=== PATIENT | female | born 1970 | race African-American/Black ===

== ENCOUNTER 2017-02-26 12:57 | Inpatient (IN) | payer OTHER ==
[2017-02-26] MEDS ORDERED: RAPID SEQUENCE INTUBATION KIT NR ONE ×2 (13:03→13:09)
[2017-02-26 13:04] VITALS: BMI 24.7
[2017-02-26] MEDS ORDERED: SODIUM CHLORIDE 0.9% 1000 ML INFUS.BAG IV STA (13:16)
[2017-02-26] MEDS ORDERED: ETOMIDATE 20 MG/10 ML AMPUL IVPUSH ONE (13:18)
[2017-02-26] MEDS ORDERED: NALOXONE HCL 0.4 MG/ML VIAL IVPUSH ONE (13:18)
[2017-02-26] MEDS ORDERED: ROCURONIUM BROMIDE 50 MG/5 ML VIAL IV ONE (13:18)
--- NOTE | 2017-02-26 13:25 | PDOC ---
History of Present Illness <Linn Wakefield Todd - Last Filed: 02/26/17 15:07> - History of Present Illness Initial Comments: 46 year old female presenting unresponsive, respiring on her own with [place]y coma scale of 3 who was found down suspected to but down for two days in her own urine and feces. She was hemodynamically stable with SAT 100% on non re- breather. We intubated her without difficulty and only after etomidate with a 7.0 tube. Patient was paralyzed prophylactically with Rocronium for her CT scan. A med list was found that should morphine sulfate. Prior to intubation 2 of Narcan was given without response. 02/26/17 16:07 <Annie Norton - Last Filed: 02/26/17 20:09> - General Stated Complaint: UNRESPONSIVE Time Seen by Provider: 02/26/17 13:16 Past History <Linn Wakefield - Last Filed: 02/26/17 15:07> - Past Medical History Other medical history: UNKNOWN - Suicide/Smoking/Psychosocial Hx Smoking History: Unknown if ever smoked Hx Alcohol Use: (UNKNOWN) Drug/Substance Use Hx: (UNKNOWN) <Annie Norton - Last Filed: 02/26/17 20:09> - Past Medical History Allergies/Adverse Reactions: Allergies Allergy/AdvReac Type Severity Reaction Status Date / Time No Allergy Information Allergy Verified 02/26/17 13:17 Available Home Medications: Ambulatory Orders Unobtainable [Unobtainable] 02/26/17 Review of Systems - Review of Systems Able to Perform ROS?: No <Annie Norton - Last Filed: 02/26/17 20:09> *Physical Exam - Vital Signs Last Vital Signs Temp Pulse Resp BP Pulse Ox 98.4 F 105 H 16 132/91 96 02/26/17 14:43 02/26/17 14:43 02/26/17 14:43 02/26/17 14:43 02/26/17 14:43 <Linn Wakefield - Last Filed: 02/26/17 15:07> - Vital Signs Last Vital Signs Temp Pulse Resp BP Pulse Ox 113 H 226 H 134/86 98 02/26/17 13:01 02/26/17 13:01 02/26/17 13:01 02/26/17 13:01 - Physical Exam Comments: Completely comatose but respiring on her own with eyes both fixed in an left upward direction. Disheveled with malodorous urine and feces surround the patient. 02/26/17 16:53 <CierraSeymouralek - Last Filed: 02/26/17 20:09> Procedures - Intubation Intubation Method: orotracheal Blade used: Mac Tube Size (Fr): 7.0 Medications: Etomidate, Rocuronium Tube position @ lip (cm): 22 Tube position confirmed by: Direct visualization, CO2 detector, Chest x-ray, Breath sounds Breath Sounds after Intubation: equal Intubation Complications: no complications Post Intubation Xray: Yes Progress/Xray Impression: A few x rays were shot after repositioning. Eventually well positioned. <Annie Norton - Last Filed: 02/26/17 20:09> ED Treatment Course - LABORATORY CBC & Chemistry Diagram: 02/26/17 13:25 02/26/17 13:25 - ADDITIONAL ORDERS Additional order review: Laboratory Results 02/26/17 02/26/17 02/26/17 13:48 13:48 13:40 PT with INR INR PTT (Actin FS) Puncture Site Left radial ABG pH 7.33 L ABG pCO2 at Pt Temp 48.0 H ABG pO2 at Pt Temp 445.0 H* ABG HCO3 24.3 ABG O2 Sat (Measured) 99.8 H* ABG O2 Content 17.9 ABG Base Excess -1.4 Roney Test Positive VBG pH POC VBG pCO2 POC VBG pO2 Mixed VBG HCO3 Carboxyhemoglobin 1.0 Methemoglobin 0.6 O2 Delivery Device Vent Oxygen Flow Rate 100 Vent Mode Ac Vent Rate 12 Mechanical Rate Yes PEEP 5.0 Pressure Support Vent 400 Sodium Potassium Chloride Carbon Dioxide Anion Gap BUN Creatinine Creat Clearance w eGFR Random Glucose Serum Osmolality Lactic Acid Calcium Total Bilirubin AST ALT Alkaline Phosphatase Ammonia Creatine Kinase Creatine Kinase Index CK-MB (CK-2) Troponin I Total Protein Albumin Urine Color Urine Appearance Urine pH Urine Protein Urine Glucose (UA) Urine Ketones Urine Blood Urine Nitrite Urine Bilirubin Urine Urobilinogen Opiates Screen Positive Methadone Screen Negative Barbiturate Screen Positive Phencyclidine Screen Negative Ur Amphetamines Screen Negative MDMA (Ecstasy) Screen Negative Benzodiazepines Screen Positive Cocaine Screen Negative U Marijuana (THC) Screen Negative Alcohol, Quantitative Acetone, Qual Blood Type Antibody Screen 02/26/17 02/26/17 02/26/17 13:40 13:40 13:40 PT with INR INR PTT (Actin FS) Puncture Site ABG pH ABG pCO2 at Pt Temp ABG pO2 at Pt Temp ABG HCO3 ABG O2 Sat (Measured) ABG O2 Content ABG Base Excess Roney Test VBG pH 7.35 POC VBG pCO2 48.7 POC VBG pO2 51.6 H Mixed VBG HCO3 26.4 H Carboxyhemoglobin Methemoglobin O2 Delivery Device Oxygen Flow Rate Vent Mode Vent Rate Mechanical Rate PEEP Pressure Support Vent Sodium Potassium Chloride Carbon Dioxide Anion Gap BUN Creatinine Creat Clearance w eGFR Random Glucose Serum Osmolality 366 H Lactic Acid Calcium Total Bilirubin AST ALT Alkaline Phosphatase Ammonia Creatine Kinase Creatine Kinase Index CK-MB (CK-2) Troponin I Total Protein Albumin Urine Color Urine Appearance Urine pH Urine Protein Urine Glucose (UA) Urine Ketones Urine Blood Urine Nitrite Urine Bilirubin Urine Urobilinogen Opiates Screen Methadone Screen Barbiturate Screen Phencyclidine Screen Ur Amphetamines Screen MDMA (Ecstasy) Screen Benzodiazepines Screen Cocaine Screen U Marijuana (THC) Screen Alcohol, Quantitative < 5.0 Acetone, Qual Trace H Blood Type Antibody Screen 02/26/17 02/26/17 02/26/17 13:40 13:38 13:25 PT with INR INR PTT (Actin FS) Puncture Site ABG pH ABG pCO2 at Pt Temp ABG pO2 at Pt Temp ABG HCO3 ABG O2 Sat (Measured) ABG O2 Content ABG Base Excess Roney Test VBG pH POC VBG pCO2 POC VBG pO2 Mixed VBG HCO3 Carboxyhemoglobin Methemoglobin O2 Delivery Device Oxygen Flow Rate Vent Mode Vent Rate Mechanical Rate PEEP Pressure Support Vent Sodium Potassium Chloride Carbon Dioxide Anion Gap BUN Creatinine Creat Clearance w eGFR Random Glucose Serum Osmolality Lactic Acid Calcium Total Bilirubin AST ALT Alkaline Phosphatase Ammonia 68.55 H Creatine Kinase Creatine Kinase Index CK-MB (CK-2) Troponin I Total Protein Albumin Urine Color Yellow Urine Appearance Clear Urine pH 5.0 Urine Protein Negative Urine Glucose (UA) Negative Urine Ketones Negative Urine Blood Negative Urine Nitrite Negative Urine Bilirubin Negative Urine Urobilinogen Negative Opiates Screen Methadone Screen Barbiturate Screen Phencyclidine Screen Ur Amphetamines Screen MDMA (Ecstasy) Screen Benzodiazepines Screen Cocaine Screen U Marijuana (THC) Screen Alcohol, Quantitative Acetone, Qual Blood Type O POSITIVE Antibody Screen Negative 02/26/17 02/26/17 02/26/17 13:25 13:25 13:25 PT with INR 16.30 H INR 1.47 H PTT (Actin FS) 28.5 Puncture Site ABG pH ABG pCO2 at Pt Temp ABG pO2 at Pt Temp ABG HCO3 ABG O2 Sat (Measured) ABG O2 Content ABG Base Excess Roney Test VBG pH POC VBG pCO2 POC VBG pO2 Mixed VBG HCO3 Carboxyhemoglobin Methemoglobin O2 Delivery Device Oxygen Flow Rate Vent Mode Vent Rate Mechanical Rate PEEP Pressure Support Vent Sodium 154 H Potassium 5.0 Chloride 121 H Carbon Dioxide 26 Anion Gap 7 L BUN 112 H* Creatinine 1.8 H Creat Clearance w eGFR 30.86 Random Glucose 159 H Serum Osmolality Lactic Acid 2.7 H* Calcium 7.6 L Total Bilirubin 0.4 AST 73 H ALT 44 Alkaline Phosphatase 74 Ammonia Creatine Kinase 956 H Creatine Kinase Index 0.1 CK-MB (CK-2) 1.409 Troponin I 0.02 Total Protein 6.5 Albumin 3.6 Urine Color Urine Appearance Urine pH Urine Protein Urine Glucose (UA) Urine Ketones Urine Blood Urine Nitrite Urine Bilirubin Urine Urobilinogen Opiates Screen Methadone Screen Barbiturate Screen Phencyclidine Screen Ur Amphetamines Screen MDMA (Ecstasy) Screen Benzodiazepines Screen Cocaine Screen U Marijuana (THC) Screen Alcohol, Quantitative Acetone, Qual Blood Type Antibody Screen 02/26/17 13:25 RBC 6.06 H MCV 74.1 L MCHC 30.1 L RDW 22.9 H MPV 10.0 Neutrophils % No Result Required. Lymphocytes % No Result Required. - Medications Given in the ED: ED Medications Discontinued Medications Generic Name Dose Route Start Last Admin Trade Name Derekq PRN Reason Stop Dose Admin Etomidate 20 mg 02/26/17 13:18 02/26/17 13:49 Amidate - IVPUSH 02/26/17 13:19 20 mg ONCE ONE Administration Naloxone HCl 2 mg 02/26/17 13:18 02/26/17 13:49 Narcan - IVPUSH 02/26/17 13:19 2 mg ONCE ONE Administration Rocuronium [place] 100 mg 02/26/17 13:18 02/26/17 13:49 Zemuron - IV 02/26/17 13:19 100 mg ONCE ONE Administration Sodium Chloride 1,837 ml 02/26/17 13:16 02/26/17 13:49 Normal Saline - IV 02/26/17 13:17 1,837 ml ONCE STA Administration <Linn Wakefield - Last Filed: 02/26/17 15:07> - LABORATORY CBC & Chemistry Diagram: 02/26/17 13:25 02/26/17 13:25 <Annie Norton - Last Filed: 02/26/17 20:09> Medical Decision Making - Medical Decision Making 02/26/17 15:[address] Chato Laurent (PCP) [phone]. [employer]: Dr. Valerie Issa [phone]. <Linn Wakefield - Last Filed: 02/26/17 15:07> - Critical Care Time Total Critical Care Time (minutes): 45 Critical Care Statement: The care of this patient involved high complexity decision making to prevent further life threatening deterioration of the patient 's condition and/or to evaluate & treat vital organ system(s) failure or risk of failure. - Medical Decision Making 46 year old unresponsive patient with concerns for airway protection was intubated with etomidate with a 7.0 ET tube 22.0 CM at the lip with post intubation CXR showing good placement after a few trials of repositioning. OG tube placed. Labs severely deranged with drug screen positive for multiple depressant medications. Placed an OG tube and started lactulose therapy for elevated ammonia level as metabolic encephalopathy is high on the differential of etiologies causing this clinical presentation. Also high is drug overdose leading to anoxic brain injury. 02/26/17 16:56 02/26/17 20:[address] Martinez, Dr. Vivar, and neurology then transferred to the ICU. 02/26/17 20:08 <Annie Norton - Last Filed: 02/26/17 20:09> *DC/Admit/Observation/Transfer <Linn Wakefield - Last Filed: 02/26/17 15:07> - Discharge Dispostion Admit: Yes <Annie Norton - Last Filed: 02/26/17 20:09> Diagnosis at time of Disposition: Polypharmacy, Unresponsive, Anoxic brain injury Overdose Qualifiers: Encounter type: initial encounter Injury intent: undetermined intent Qualified Code(s): T50.904A - Poisoning by unspecified drugs, medicaments and biological substances, undetermined, initial encounter Coma Qualifiers: Coma depth: Rossy coma 3-8 Coma timing: at arrival to emergency department Qualified Code(s): R40.2432 - [place] coma scale score 3-8, at arrival to emergency department - Discharge Dispostion Condition at time of disposition: Stable
[2017-02-26 13:44] LABS: MCH 22.3 pg (25.7-33.7); MCHC 30.1 g/dl (32.0-36.0); MEAN CELL VOLUME 74.1 fl (80-96); PLATELET COUNT 221 K/MM3 (134-434); RDW 22.9 % (11.6-15.6); WHITE BLOOD COUNT 18.2 K/mm3 (4.0-10.0)
[2017-02-26 13:50] LABS: VENOUS PH 7.35 (7.32-7.42)
[2017-02-26 13:51] LABS: VENOUS BLOOD GAS HCO3 26.4 meq/L (19-25)
[2017-02-26 13:51] LABS: ARTERIAL BLD GAS O2 SATURATION 99.8 % (90-98.9); ARTERIAL BLOOD GAS BASE EXCESS -1.4 meq/l (-2-2); ARTERIAL BLOOD GAS HCO3 24.3 meq/L (22-26); ARTERIAL BLOOD GAS pH 7.33 (7.35-7.45)
[2017-02-26 13:53] LABS: ALLENS TEST POSITIVE; ART PUNCT SITE LEFT RADIAL; LPM/O2% 100; MECH. VENT. YES; PT. ON O2? YES; TYPE OF O2 VENT; VENT RATE 12; VT/PRESS 400
[2017-02-26 13:56] LABS: INR 1.47 (0.82-1.09); PROTHROMBIN TIME (PATIENT) 16.3 SEC (9.98-11.88)
[2017-02-26 13:59] LABS: ACTIVATED PTT 28.5 SECONDS (26.9-34.4)
[2017-02-26 14:18] LABS: URINE APPEARANCE CLEAR; URINE BILIRUBIN NEGATIVE (NEGATIVE); URINE BLOOD NEGATIVE (NEGATIVE); URINE COLOR YELLOW; URINE GLUCOSE (UA) NEGATIVE (NEGATIVE); URINE KETONE NEGATIVE (NEGATIVE); URINE LEUK ESTERASE NEGATIVE (NEGATIVE); URINE NITRITE NEGATIVE (NEGATIVE); URINE PROTEIN NEGATIVE (NEGATIVE); URINE UROBILINOGEN NEGATIVE mg/dL (0.2-1.0)
[2017-02-26 14:23] LABS: URINE MARIJUANA THC NEGATIVE ng/ml (CUTOFF=50)
[2017-02-26 14:26] LABS: METHEMOGLOBIN 0.6 % (0.4-1.5)
[2017-02-26 14:26] LABS: ALBUMIN 3.6 g/dl (3.4-5.0); ANION GAP 7 (8-16); BILIRUBIN,TOTAL 0.4 mg/dL (0.2-1.0); CALCIUM 7.6 mg/dL (8.5-10.1); CO2 26 mmol/L (21-32); CREATININE 1.8 mg/dL (0.55-1.02); GLUCOSE,RANDOM 159 mg/dL (74-106); SGOT/AST 73 U/L (15-37); SGPT/ALT 44 U/L (12-78); TOT PROT 6.5 g/dl (6.4-8.2)
[2017-02-26 14:29] LABS: ALK PHOS 74 U/L (45-117); CPK 956 IU/L (26-192); TROPONIN I 0.02 ng/ml (0.00-0.05)
[2017-02-26 14:43] LABS: ACETONE SERUM TRACE (NEGATIVE)
[2017-02-26 14:44] LABS: OSMOLALITY,SERUM 366 mosm/kg (278-305)
--- NOTE | 2017-02-26 14:45 | PDOC ---
Attending Attestation - Resident Resident Name: Annie Norton - ED Attending Attestation I have performed the following: I have examined & evaluated the patient, The case was reviewed & discussed with the resident, I agree w/resident's findings & plan, Exceptions are as noted - HPI HPI: 02/26/17 14:40 UNRESPONSIIVE, PROBABLY FOR 2 DAYS - Physicial Exam PE: 02/26/17 14:40 UNRESPONSIVE, COVERED IN URINE, EMISIS and STOOL, EYES DEVIATED TO THE LEFT- - Medical Decision Making 02/26/17 14:41 NO RESPONSE TO NARCAN 2 MG IV I agree with Annie Norton's Assessment and Plan <Les Deng - Last Filed: 02/26/17 14:40> - Medical Decision Making 02/26/17 16:[address] Darby. [phone] <Linn Wakefield - Last Filed: 02/26/17 16:34> Discharge Disposition - Discharge Dispostion Admit: Yes <Les Deng - Last Filed: 02/26/17 14:40> <Linn Wakefield - Last Filed: 02/26/17 16:34> - Diagnosis Polypharmacy, Unresponsive, Anoxic brain injury Overdose Qualifiers: Encounter type: initial encounter Injury intent: undetermined intent Qualified Code(s): T50.904A - Poisoning by unspecified drugs, medicaments and biological substances, undetermined, initial encounter Coma Qualifiers: Coma depth: Rossy coma 3-8 Coma timing: at arrival to emergency department Qualified Code(s): R40.2432 - Rossy coma scale score 3-8, at arrival to emergency department
[2017-02-26 14:59] LABS: PLATELET ESTIMATE ADEQUATE (NORMAL)
[2017-02-26 15:03] LABS: ANISOCYTOSIS 3+; HYPOCHROMIA 1+; MICROCYTOSIS 1+; OVALOCYTE 1+; TARGET CELLS 1+; TOTAL CELLS COUNTED 100
[2017-02-26] MEDS ORDERED: LACTULOSE 20 GM/30 ML UDC (FOR ORAL USE ONLY) PO ONE (16:49)
--- NOTE | 2017-02-26 16:51 | HP ---
Admitting History and Physical - Primary Care Physician PCP: Iliana Vivar - Admission History of Present Illness: 46 year old female presenting unresponsive, respiring on her own with [place] coma scale of 3 who was found down suspected to bt down for two days in her own urine and feces. history taken from er records - Past Medical History Rheumatology: Yes: Lupus - Smoking History Smoking history: Unknown if ever smoked - Alcohol/Substance Use Hx Alcohol Use: (UNKNOWN) Home Medications - Allergies Allergies/Adverse Reactions: Allergies Allergy/AdvReac Type Severity Reaction Status Date / Time No Allergy Information Allergy Verified 02/26/17 13:17 Available - Home Medications Home Medications: Ambulatory Orders Unobtainable [Unobtainable] 02/26/17 Physical Examination Vital Signs: Vital Signs Temperature 98.0 F 02/26/17 16:17 Pulse Rate 93 H 02/26/17 16:17 Respiratory Rate 16 02/26/17 16:17 Blood Pressure 116/85 02/26/17 16:17 O2 Sat by Pulse Oximetry (%) 100 02/26/17 16:17 Constitutional: Yes: Calm HENT: Yes: Atraumatic Neck: Yes: Supple Cardiovascular: Yes: Regular Rate and Rhythm Respiratory: Yes: Rhonchi Gastrointestinal: Yes: Normal Bowel Sounds Extremities: Yes: WNL Edema: No Integumentary: Yes: Skin Tear (on left side of chest hip, also left malleolus r side of chest...seems like ulcer) Neurological: Yes: Other (sedated) Problem List - Problems (1) TRENT (acute kidney injury) Assessment/Plan: will do iv hydration Code(s): N17.9 - ACUTE KIDNEY FAILURE, UNSPECIFIED (2) Anoxic brain injury Assessment/Plan: neuro checks Code(s): G93.1 - ANOXIC BRAIN DAMAGE, NOT ELSEWHERE CLASSIFIED (3) Coma Code(s): R40.20 - UNSPECIFIED COMA Qualifiers: Coma depth: [place] coma 3-8 Coma timing: at arrival to emergency department Qualified Code(s): R40.2432 - [place] coma scale score 3-8, at arrival to emergency department (4) Overdose Assessment/Plan: check levels Code(s): T50.901A - POISONING BY UNSP DRUG/MEDS/BIOL SUBST, ACCIDENTAL, INIT Qualifiers: Encounter type: initial encounter Injury intent: undetermined intent Qualified Code(s): T50.904A - Poisoning by unspecified drugs, medicaments and biological substances, undetermined, initial encounter (5) Polypharmacy Code(s): Z79.899 - OTHER SENIOR LIVING (CURRENT) DRUG THERAPY (6) Respiratory failure Assessment/Plan: intubated Code(s): J96.90 - RESPIRATORY FAILURE, UNSP, UNSP W HYPOXIA OR HYPERCAPNIA (7) Rhabdomyolysis Assessment/Plan: ivf will check cpk Code(s): M62.82 - RHABDOMYOLYSIS (8) Unresponsive Code(s): R41.89 - OTH SYMPTOMS AND SIGNS W COGNITIVE FUNCTIONS AND AWARENESS Assessment/Plan Laboratory Tests 02/26/17 02/26/17 02/26/17 13:02 13:25 13:25 WBC 18.2 H RBC 6.06 H Hgb 13.5 Hct 44.9 MCV 74.1 L MCH 22.3 L MCHC 30.1 L RDW 22.9 H Plt Count 221 MPV 10.0 Total Counted 100 Neutrophils % No Result Required. Neutrophils % (Manual) 85 H Band Neuts % (Manual) 2 Lymphocytes % No Result Required. Lymphocytes % (Manual) 8 Monocytes % Monocytes % (Manual) 5 Eosinophils % Eosinophils % (Manual) 0 Basophils % Hypochromia 1+ Platelet Estimate Adequate Anisocytosis 3+ Microcytosis 1+ Target Cells 1+ Ovalocytes 1+ PT with INR 16.30 H INR 1.47 H PTT (Actin FS) 28.5 Puncture Site ABG pH ABG pCO2 at Pt Temp ABG pO2 at Pt Temp ABG HCO3 ABG O2 Sat (Measured) ABG O2 Content ABG Base Excess Roney Test VBG pH POC VBG pCO2 POC VBG pO2 Mixed VBG HCO3 Carboxyhemoglobin Methemoglobin O2 Delivery Device Oxygen Flow Rate Vent Mode Vent Rate Mechanical Rate PEEP Pressure Support Vent Sodium Potassium Chloride Carbon Dioxide Anion Gap BUN Creatinine Creat Clearance w eGFR POC Glucometer [phone] Random Glucose Serum Osmolality Lactic Acid Calcium Total Bilirubin AST ALT Alkaline Phosphatase Ammonia Creatine Kinase Creatine Kinase Index CK-MB (CK-2) Troponin I Total Protein Albumin Urine Color Urine Appearance Urine pH Urine Protein Urine Glucose (UA) Urine Ketones Urine Blood Urine Nitrite Urine Bilirubin Urine Urobilinogen Opiates Screen Methadone Screen Barbiturate Screen Phencyclidine Screen Ur Amphetamines Screen MDMA (Ecstasy) Screen Benzodiazepines Screen Cocaine Screen U Marijuana (THC) Screen Alcohol, Quantitative Acetone, Qual Blood Type Antibody Screen 02/26/17 02/26/17 02/26/17 13:25 13:25 13:25 WBC RBC Hgb Hct MCV MCH MCHC RDW Plt Count MPV Total Counted Neutrophils % Neutrophils % (Manual) Band Neuts % (Manual) Lymphocytes % Lymphocytes % (Manual) Monocytes % Monocytes % (Manual) Eosinophils % Eosinophils % (Manual) Basophils % Hypochromia Platelet Estimate Anisocytosis Microcytosis Target Cells Ovalocytes PT with INR INR PTT (Actin FS) Puncture Site ABG pH ABG pCO2 at Pt Temp ABG pO2 at Pt Temp ABG HCO3 ABG O2 Sat (Measured) ABG O2 Content ABG Base Excess Roney Test VBG pH POC VBG pCO2 POC VBG pO2 Mixed VBG HCO3 Carboxyhemoglobin Methemoglobin O2 Delivery Device Oxygen Flow Rate Vent Mode Vent Rate Mechanical Rate PEEP Pressure Support Vent Sodium 154 H Potassium 5.0 Chloride 121 H Carbon Dioxide 26 Anion Gap 7 L BUN 112 H* Creatinine 1.8 H Creat Clearance w eGFR 30.86 POC Glucometer Random Glucose 159 H Serum Osmolality Lactic Acid 2.7 H* Calcium 7.6 L Total Bilirubin 0.4 AST 73 H ALT 44 Alkaline Phosphatase 74 Ammonia Creatine Kinase 956 H Creatine Kinase Index 0.1 CK-MB (CK-2) 1.409 Troponin I 0.02 Total Protein 6.5 Albumin 3.6 Urine Color Urine Appearance Urine pH Urine Protein Urine Glucose (UA) Urine Ketones Urine Blood Urine Nitrite Urine Bilirubin Urine Urobilinogen Opiates Screen Methadone Screen Barbiturate Screen Phencyclidine Screen Ur Amphetamines Screen MDMA (Ecstasy) Screen Benzodiazepines Screen Cocaine Screen U Marijuana (THC) Screen Alcohol, Quantitative Acetone, Qual Blood Type O POSITIVE Antibody Screen Negative 02/26/17 02/26/17 02/26/17 13:38 13:40 13:40 WBC RBC Hgb Hct MCV MCH MCHC RDW Plt Count MPV Total Counted Neutrophils % Neutrophils % (Manual) Band Neuts % (Manual) Lymphocytes % Lymphocytes % (Manual) Monocytes % Monocytes % (Manual) Eosinophils % Eosinophils % (Manual) Basophils % Hypochromia Platelet Estimate Anisocytosis Microcytosis Target Cells Ovalocytes PT with INR INR PTT (Actin FS) Puncture Site ABG pH ABG pCO2 at Pt Temp ABG pO2 at Pt Temp ABG HCO3 ABG O2 Sat (Measured) ABG O2 Content ABG Base Excess Roney Test VBG pH 7.35 POC VBG pCO2 48.7 POC VBG pO2 51.6 H Mixed VBG HCO3 26.4 H Carboxyhemoglobin Methemoglobin O2 Delivery Device Oxygen Flow Rate Vent Mode Vent Rate Mechanical Rate PEEP Pressure Support Vent Sodium Potassium Chloride Carbon Dioxide Anion Gap BUN Creatinine Creat Clearance w eGFR POC Glucometer Random Glucose Serum Osmolality Lactic Acid Calcium Total Bilirubin AST ALT Alkaline Phosphatase Ammonia 68.55 H Creatine Kinase Creatine Kinase Index CK-MB (CK-2) Troponin I Total Protein Albumin Urine Color Yellow Urine Appearance Clear Urine pH 5.0 Urine Protein Negative Urine Glucose (UA) Negative Urine Ketones Negative Urine Blood Negative Urine Nitrite Negative Urine Bilirubin Negative Urine Urobilinogen Negative Opiates Screen Methadone Screen Barbiturate Screen Phencyclidine Screen Ur Amphetamines Screen MDMA (Ecstasy) Screen Benzodiazepines Screen Cocaine Screen U Marijuana (THC) Screen Alcohol, Quantitative Acetone, Qual Blood Type Antibody Screen 02/26/17 02/26/17 02/26/17 13:40 13:40 13:40 WBC RBC Hgb Hct MCV MCH MCHC RDW Plt Count MPV Total Counted Neutrophils % Neutrophils % (Manual) Band Neuts % (Manual) Lymphocytes % Lymphocytes % (Manual) Monocytes % Monocytes % (Manual) Eosinophils % Eosinophils % (Manual) Basophils % Hypochromia Platelet Estimate Anisocytosis Microcytosis Target Cells Ovalocytes PT with INR INR PTT (Actin FS) Puncture Site ABG pH ABG pCO2 at Pt Temp ABG pO2 at Pt Temp ABG HCO3 ABG O2 Sat (Measured) ABG O2 Content ABG Base Excess Roney Test VBG pH POC VBG pCO2 POC VBG pO2 Mixed VBG HCO3 Carboxyhemoglobin Methemoglobin O2 Delivery Device Oxygen Flow Rate Vent Mode Vent Rate Mechanical Rate PEEP Pressure Support Vent Sodium Potassium Chloride Carbon Dioxide Anion Gap BUN Creatinine Creat Clearance w eGFR POC Glucometer Random Glucose Serum Osmolality 366 H Lactic Acid Calcium Total Bilirubin AST ALT Alkaline Phosphatase Ammonia Creatine Kinase Creatine Kinase Index CK-MB (CK-2) Troponin I Total Protein Albumin Urine Color Urine Appearance Urine pH Urine Protein Urine Glucose (UA) Urine Ketones Urine Blood Urine Nitrite Urine Bilirubin Urine Urobilinogen Opiates Screen Positive Methadone Screen Negative Barbiturate Screen Positive Phencyclidine Screen Negative Ur Amphetamines Screen Negative MDMA (Ecstasy) Screen Negative Benzodiazepines Screen Positive Cocaine Screen Negative U Marijuana (THC) Screen Negative Alcohol, Quantitative < 5.0 Acetone, Qual Trace H Blood Type Antibody Screen 02/26/17 02/26/17 02/26/17 13:48 13:48 15:16 WBC RBC Hgb Hct MCV MCH MCHC RDW Plt Count MPV Total Counted Neutrophils % Neutrophils % (Manual) Band Neuts % (Manual) Lymphocytes % Lymphocytes % (Manual) Monocytes % Monocytes % (Manual) Eosinophils % Eosinophils % (Manual) Basophils % Hypochromia Platelet Estimate Anisocytosis Microcytosis Target Cells Ovalocytes PT with INR INR PTT (Actin FS) Puncture Site Left radial ABG pH 7.33 L ABG pCO2 at Pt Temp 48.0 H ABG pO2 at Pt Temp 445.0 H* ABG HCO3 24.3 ABG O2 Sat (Measured) 99.8 H* ABG O2 Content 17.9 ABG Base Excess -1.4 Roney Test Positive VBG pH POC VBG pCO2 POC VBG pO2 Mixed VBG HCO3 Carboxyhemoglobin 1.0 Methemoglobin 0.6 O2 Delivery Device Vent Oxygen Flow Rate 100 Vent Mode Ac Vent Rate 12 Mechanical Rate Yes PEEP 5.0 Pressure Support Vent 400 Sodium Potassium Chloride Carbon Dioxide Anion Gap BUN Creatinine Creat Clearance w eGFR POC Glucometer Random Glucose Serum Osmolality Lactic Acid 1.7 Calcium Total Bilirubin AST ALT Alkaline Phosphatase Ammonia Creatine Kinase Creatine Kinase Index CK-MB (CK-2) Troponin I Total Protein Albumin Urine Color Urine Appearance Urine pH Urine Protein Urine Glucose (UA) Urine Ketones Urine Blood Urine Nitrite Urine Bilirubin Urine Urobilinogen Opiates Screen Methadone Screen Barbiturate Screen Phencyclidine Screen Ur Amphetamines Screen MDMA (Ecstasy) Screen Benzodiazepines Screen Cocaine Screen U Marijuana (THC) Screen Alcohol, Quantitative Acetone, Qual Blood Type Antibody Screen 02/27/17 02/27/17 02/27/17 05:00 05:00 07:10 WBC 18.0 H RBC 5.17 Hgb 11.9 D Hct 37.9 D MCV 73.3 L MCH 23.0 L MCHC 31.3 L RDW 22.9 H Plt Count 183 MPV 10.0 Total Counted Neutrophils % 82.8 Neutrophils % (Manual) Band Neuts % (Manual) Lymphocytes % 4.5 L Lymphocytes % (Manual) Monocytes % 11.9 H Monocytes % (Manual) Eosinophils % 0.6 Eosinophils % (Manual) Basophils % 0.2 Hypochromia Platelet Estimate Anisocytosis Microcytosis Target Cells Ovalocytes PT with INR INR PTT (Actin FS) Puncture Site Right radial ABG pH 7.40 ABG pCO2 at Pt Temp 36.4 D ABG pO2 at Pt Temp 208.0 H* ABG HCO3 22.1 ABG O2 Sat (Measured) 99.6 H* ABG O2 Content 16.9 ABG Base Excess -1.8 Roney Test Positive VBG pH POC VBG pCO2 POC VBG pO2 Mixed VBG HCO3 Carboxyhemoglobin Methemoglobin O2 Delivery Device Vent Oxygen Flow Rate 50 Vent Mode A/c Vent Rate 16 Mechanical Rate Yes PEEP 5.0 Pressure Support Vent 400 Sodium 155 H Potassium 4.9 Chloride 124 H Carbon Dioxide 24 Anion Gap 7 L BUN 70 H D Creatinine 1.4 H D Creat Clearance w eGFR 40.66 POC Glucometer Random Glucose 177 H Serum Osmolality Lactic Acid Calcium 8.1 L Total Bilirubin 0.5 D AST 117 H D ALT 56 D Alkaline Phosphatase 76 Ammonia Creatine Kinase Creatine Kinase Index CK-MB (CK-2) Troponin I Total Protein 6.4 Albumin 3.3 L Urine Color Urine Appearance Urine pH Urine Protein Urine Glucose (UA) Urine Ketones Urine Blood Urine Nitrite Urine Bilirubin Urine Urobilinogen Opiates Screen Methadone Screen Barbiturate Screen Phencyclidine Screen Ur Amphetamines Screen MDMA (Ecstasy) Screen Benzodiazepines Screen Cocaine Screen U Marijuana (THC) Screen Alcohol, Quantitative Acetone, Qual Blood Type Antibody Screen Active Medications Generic Name Dose Route Start Last Admin Trade Name Freq PRN Reason Stop Dose Admin Heparin Sodium (Porcine) 5,000 unit 02/26/17 22:00 02/27/17 15:04 Heparin - SQ 5,000 unit TID MOI Administration Vancomycin HCl 1,250 mg/ 250 mls @ 166.667 mls/hr 02/26/17 18:00 02/27/17 17:37 Dextrose IVPB 166.667 mls/hr Q24H MOI Administration Protocol Famotidine/Sodium Chloride 50 mls @ 100 mls/hr 02/27/17 06:00 02/27/17 06:09 Pepcid 20 Mg Premixed Ivpb - IVPB 100 mls/hr DAILY@0600 MOI Administration Piperacillin Sod/Tazobactam Sod 50 mls @ 100 mls/hr 02/27/17 09:03 02/27/17 17: 38 Zosyn 3.375gm Ivpb (Pre-Docked) IVPB 100 mls/hr Q8H-IV MOI Administration Protocol Dextrose/Sodium Chloride 500 mls @ 100 mls/hr 02/27/17 10:45 02/27/17 16:51 D5-1/3ns - IV 100 mls/hr ASDIR MOI Administration
[2017-02-26] MEDS ORDERED: LACTULOSE 20 GM/30 ML UDC (FOR ORAL USE ONLY) ONE (16:53)
[2017-02-26] MEDS ORDERED: SODIUM CHLORIDE 1,000 ML IV SCH (17:00)
[2017-02-26] MEDS ORDERED: CEFTRIAXONE 100 ML ONE (17:12)
[2017-02-26] MEDS ORDERED: CEFTRIAXONE 1 GM in DEXTROSE 5%-WATER - 50 ML IVPB SCH (17:15)
--- NOTE | 2017-02-26 17:35 | CON.ID ---
Consult Consult Specialty:: infectious diseases Reason for Consultation:: sepsis,pna - History of Present Illness History of Present Illness: patient currently intubated, history obtained from the charts 46 year old female presented to ER completely unresponsive, [place] coma scale of 3, who was "found down" possibly for several days and last known well two days ago. was Found in her own urine and feces without explanation of why. Concern for airway protection and ER intubated and put on mechanical ventilation UTox positive for benzo, barbiturates, and opiods. ALso with WBC of 18. patient not responsive,was worked up with ct scan being normal also found to have abn labs including cpk and patient being given fluids and being managed on vent - History Source History Provided By: Medical Record Limitations to Obtaining History: Clinical Condition - Alcohol/Substance Use Hx Alcohol Use: (UNKNOWN) - Smoking History Smoking history: Unknown if ever smoked Home Medications - Allergies Allergies/Adverse Reactions: Allergies Allergy/AdvReac Type Severity Reaction Status Date / Time No Allergy Information Allergy Verified 02/26/17 13:17 Available - Home Medications Home Medications: Ambulatory Orders Unobtainable [Unobtainable] 02/26/17 Review of Systems Unable to obtain ROS, reason: unable to obtain Physical Exam Vital Signs: Vital Signs Temperature 98.0 F 02/26/17 16:17 Pulse Rate 93 H 02/26/17 16:17 Respiratory Rate 16 02/26/17 16:17 Blood Pressure 116/85 02/26/17 16:17 O2 Sat by Pulse Oximetry (%) 100 02/26/17 16:17 Constitutional: Yes: Other Eyes: Yes: Conjunctiva Clear Neck: Yes: Supple, Trachea Midline Cardiovascular: Yes: Regular Rate and Rhythm Respiratory: Yes: Intubated, Mechanically Ventilated, Rhonchi Gastrointestinal: Yes: Soft, Hypoactive Bowel Sounds Musculoskeletal: Yes: Other Extremities: Yes: Other Integumentary: Yes: Other ( unstageable ulcers l with necrotic center and surrounding skin breakdown) Wound/Incision: Yes: Other Neurological: Yes: Other Psychiatric: Yes: Other Imaging - Results Chest X-ray: Report Reviewed, Image Reviewed Cat Scan: Report Reviewed, Image Reviewed Assessment/Plan Problem List - Problems (1) Overdose Code(s): T50.901A - POISONING BY UNSP DRUG/MEDS/BIOL SUBST, ACCIDENTAL, INIT Qualifiers: Encounter type: initial encounter Injury intent: undetermined intent Qualified Code(s): T50.904A - Poisoning by unspecified drugs, medicaments and biological substances, undetermined, initial encounter (2) Polypharmacy Code(s): Z79.899 - OTHER SKILLED NURSING (CURRENT) DRUG THERAPY (3) Unresponsive Code(s): R41.89 - OTH SYMPTOMS AND SIGNS W COGNITIVE FUNCTIONS AND AWARENESS (4) TRENT (acute kidney injury) Code(s): N17.9 - ACUTE KIDNEY FAILURE, UNSPECIFIED (5) Rhabdomyolysis Code(s): M62.82 - RHABDOMYOLYSIS (6) Respiratory failure Code(s): J96.90 - RESPIRATORY FAILURE, UNSP, UNSP W HYPOXIA OR HYPERCAPNIA asp pna leukocytosis although the patient is not showing any finding on the xray the chances of her aspirating when she was unconscious is pretty high patient comes in septic also andrea has wounds on the leg plan abx icu close monitoring for fever monitor labx rest as per primary care cc time 45 min
--- NOTE | 2017-02-26 18:37 | CONSULT ---
Consult - text type - Consultation Consultation Note: Neurology History of Present Illness 46 year old female presented to ER completely unresponsive, [place] coma scale of 3, who was "found down" possibly for several days and last known well two days ago. Found in her own urine and feces without explanation of why. Concern for airway protection and ER intubated and put on mechanical ventilation in the ER where I saw her. CT head completed and did not show acute changes. UTox positive for benzo, barbiturates, and opiods. ALso with WBC of 18. Patient not responsive during exam and pupil sluggish but responsive. Concern for drug overdose but will need further evaluation and managment. To be transferred to ICU for close monitoring. Past History - Past Medical History Other medical history: UNKNOWN - Suicide/Smoking/Psychosocial Hx Smoking History: Unknown if ever smoked Hx Alcohol Use: (UNKNOWN) Drug/Substance Use Hx: (UNKNOWN) - Past Medical History Allergies/Adverse Reactions: Allergies Allergy/AdvReac Type Severity Reaction Status Date / Time No Allergy Information Allergy Verified 02/26/17 13:17 Available Home Medications: Ambulatory Orders Unobtainable [Unobtainable] Review of Systems - Review of Systems Able to Perform ROS?: No *Physical Exam Vital Signs Period Temp Pulse Resp BP Sys/Pena Pulse Ox Last 24 Hr 98.0 F-98.4 F 93-113 16-226 116-134/80-91 96-100 Comatose, not following commands, intubated, on mechanical ventilation Disheveled with malodorous scent Minimal response to nailbed pressure Not tracking Pupil responsive but sluggish Lungs sounds mechanical RRR Abdomen soft CBCD WBC 18.2 K/mm3 (4.0-10.0) H 02/26/17 13:25 RBC 6.06 M/mm3 (3.60-5.2) H 02/26/17 13:25 Hgb 13.5 GM/dL (10.7-15.3) 02/26/17 13:25 Hct 44.9 % (32.4-45.2) 02/26/17 13:25 MCV 74.1 fl (80-96) L 02/26/17 13:25 MCHC 30.1 g/dl (32.0-36.0) L 02/26/17 13:25 RDW 22.9 % (11.6-15.6) H 02/26/17 13:25 Plt Count 221 K/MM3 (134-434) 02/26/17 13:25 MPV 10.0 fl (7.5-11.1) 02/26/17 13:25 CMP Sodium 154 mmol/L (136-145) H 02/26/17 13:25 Potassium 5.0 mmol/L (3.5-5.1) 02/26/17 13:25 Chloride 121 mmol/L (98-107) H 02/26/17 13:25 Carbon Dioxide 26 mmol/L (21-32) 02/26/17 13:25 Anion Gap 7 (8-16) L 02/26/17 13:25 BUN 112 mg/dL (7-18) H* 02/26/17 13:25 Creatinine 1.8 mg/dL (0.55-1.02) H 02/26/17 13:25 Creat Clearance w eGFR 30.86 (>60) 02/26/17 13:25 Calcium 7.6 mg/dL (8.5-10.1) L 02/26/17 13:25 Total Bilirubin 0.4 mg/dL (0.2-1.0) 02/26/17 13:25 AST 73 U/L (15-37) H 02/26/17 13:25 ALT 44 U/L (12-78) 02/26/17 13:25 Alkaline Phosphatase 74 U/L (45-117) 02/26/17 13:25 Total Protein 6.5 g/dl (6.4-8.2) 02/26/17 13:25 Albumin 3.6 g/dl (3.4-5.0) 02/26/17 13:25 CT head reviewed Plan: 46 year old female presented to ER completely unresponsive, [place] coma scale of 3, who was "found down" possibly for several days and last known well two days ago. Found in her own urine and feces without explanation of why. Concern for airway protection and ER intubated and put on mechanical ventilation in the ER where I saw her. CT head completed and did not show acute changes. UTox positive for benzo, barbiturates, and opiods. Concern for drug overdose ALso with WBC of 18. ID consulted and following MRI brain when able Hydration as needed, check CPK for rhabdo Continue mechanical ventilation, wean as able No evidence of seizures Will need further history from family Close monitoring in ICU Total Critical Care Time (minutes): 45
--- NOTE | 2017-02-26 19:02 | HP ---
CHIEF COMPLAINT: Unresponsive PCP: Dr. Chato Laurent (PCP) [phone]. Senior Loan Officer: Dr. Valerie Issa [phone]. HISTORY OF PRESENT ILLNESS: History was taken from ER records. The pt is a 46 year old female with PMH of lupus who was found unresponsive. It is unknown how long she was down, possibly for several days. She was found by her neighbours covered with urine, faeces and vomit. In ED she was found to be tachycardic, elevated WBC to 18, GCS 3, resp acidosis, elevated BUN/Cr, elevated ammonia level and LA. She was given Narcan without response, lactulose, Ceftriaxone, NS. She had CT head, that didn' t reveal any acute changes, CXR, intubated and sent to ICU for monitoring. Recent Travel: N/A PAST MEDICAL HISTORY: Lupus according to brother PAST SURGICAL HISTORY: N/A Social History: N/A Family History: N/A Allergies No Allergy Information Available Allergy (Verified 02/26/17 13:17) HOME MEDICATIONS: Home Medications: confirmed with [facility]: [address] [place] morphine ER 30 mg BID morphine short acting 15 mg Q4h Vit D Prednisone 30 mg qd Valium 5 mg TID Phenobarbital 60 mg TID REVIEW OF SYSTEMS N/A PHYSICAL EXAMINATION Vital Signs - 24 hr 02/26/17 02/26/17 02/26/17 15:30 15:55 16:17 Temperature 98.4 F 98.0 F Pulse Rate [ 100 H 93 H Left Apical] Respiratory 16 16 16 Rate Blood Pressure 122/82 116/85 [Right Arm] O2 Sat by Pulse 100 100 Oximetry (%) GENERAL: Intubated, nonresponsive, intubated HEAD: Normal with no signs of trauma. EYES: Pupils equal, round and reactive to light, sluggish,conjunctiva clear. No lid lag, corneal reflex present. EARS, NOSE, THROAT: Ears normal, nares patent, oropharynx clear without exudates. Moist mucous membranes. NECK: supple without lymphadenopathy, JVD, LUNGS: Breath sounds equal, clear to auscultation bilaterally. No wheezes, and no crackles. HEART: Regular rate and rhythm, normal S1 and S2 without murmur, rub or gallop. ABDOMEN: Soft, nontender, not distended, normoactive bowel sounds, no guarding, no rebound, no masses. UPPER EXTREMITIES: 2+ pulses. No cyanosis. No clubbing. No peripheral edema. LOWER EXTREMITIES: 2+ pulses, warm. No peripheral edema. NEUROLOGICAL: Nonresponsive, not following commands, weakness in all 4 extremities, sensation not able to assess, corneal reflex present, no facial asymmetry. SKIN: Warm, dry, several ulcers with black tissue, well demarcated, no drainage , on lower extremities and left buttock and left lower back. Small 1 cm round ulcers are also present around ankles. Laboratory Results - last 24 hr 02/26/17 15:16 Lactic Acid 1.7 ASSESSMENT/PLAN: The pt is a 46 year old female with PMH of lupus who was brought to the hospital by EMS after she was found at home unresponsive on the floor. Polysubstance abuse: Narcan given in ED with no response CT head done in ED-no acute pathology UTox positive for benzo, barbiturates, and opiods Neurology consulted, will follow up recommendations will consided MRI brain when pt more stable Rhabdomyolisis: CPK elevated continue LR at rate 100 ml/hr Acute respiratory failure: the pt was intubated in ER cont. mech ventilation off sedation SIRS: blood cultures, urine cultures ordered ID consulted Vancomycin and Zosyn ordered added wound cultures no fever LA normalized will trend WBC TRENT: continue hydration avoid nephrotoxic substances Lupus: will contact the pt Senior Loan Officer on Prednisone 30 mg daily F/E/N LR/elev Na, Cl/NPO DVT PPX: SCd Heparin 5000 u SQ GI PPX: Famotidine Disposition: ICU monitoring. Family (brother) notified. Problem List - Problem (1) TRENT (acute kidney injury) Code(s): N17.9 - ACUTE KIDNEY FAILURE, UNSPECIFIED (2) Anoxic brain injury Code(s): G93.1 - ANOXIC BRAIN DAMAGE, NOT ELSEWHERE CLASSIFIED (3) Overdose Code(s): T50.901A - POISONING BY UNSP DRUG/MEDS/BIOL SUBST, ACCIDENTAL, INIT Qualifiers: Encounter type: initial encounter Injury intent: undetermined intent Qualified Code(s): T50.904A - Poisoning by unspecified drugs, medicaments and biological substances, undetermined, initial encounter (4) Respiratory failure Code(s): J96.90 - RESPIRATORY FAILURE, UNSP, UNSP W HYPOXIA OR HYPERCAPNIA Qualifiers: Chronicity: acute (5) Rhabdomyolysis Code(s): M62.82 - RHABDOMYOLYSIS (6) Unresponsive Code(s): R41.89 - OTH SYMPTOMS AND SIGNS W COGNITIVE FUNCTIONS AND AWARENESS Visit type - Emergency Visit Emergency Visit: Yes ED Registration Date: 02/26/17 Care time: The patient presented to the Emergency Department on the above date and was hospitalized for further evaluation of their emergent condition. - New Patient This patient is new to me today: Yes Date on this admission: 03/01/17 - Critical Care Critical Care patient: Yes Total Critical Care Time (in minutes): 40 Critical Care Statement: The care of this patient involved high complexity decision making to prevent further life threatening deterioration of the patient 's condition and/or to evaluate & treat vital organ system(s) failure or risk of failure.
--- NOTE | 2017-02-26 20:09 | CONSULT ---
Consult Consult Specialty:: Pulm/ CCM Referred by:: Ghazala Reason for Consultation:: altered mental status - History of Present Illness Chief Complaint: found unresponsive History of Present Illness: 46 y/o woman with h/o lupus who was found unresponsive after unknown down time, suspected 2 days. Neighbors notified authorities when they had not seen her for few days and she was found down today covered in urine and feces. She was found hemodynamically stable with GCS estimated about 3. On EMS arrival she was breathing independently, satting 100% on NRB. She arrived in the ED where she was given narcan without response and was subsequently intubated. She underwent CT head which was negative. Labs notable for WBC 18, BUN/Creat 112/1.8, lactate 2.5-> 1.7, CK 956. Utox (+) for opiates, barbiturates and benzos. Collateral history from brother/pharmacy reveals that pt takes morphine, phenobarbitol, and valium in addition to prednisone 30 daily. Pt was seen by ID consult who recommended vanco/ zosyn as well as neuro consult who felt most likely drug overdose, recommended MRI when able. Pt was transferred to ICU for further work up and monitoring. Pt arrived to ICU hemodynamically stable, intubated and unresponsive, flacid though with (+) pupillary, corneal, cough reflexes. She was started on standing IVF for rhabdo and continued on vanco/ zosyn. Active Medications Heparin Sodium (Porcine) (Heparin -) 5,000 unit SQ TID MOI Sodium Chloride (Normal Saline -) 1,000 mls @ 100 mls/hr IV ASDIR [facility] Last Admin: 02/26/17 17:10 Dose: 100 mls/hr Vancomycin HCl 1,250 mg/ (Dextrose) 250 mls @ 166.667 mls/hr IVPB Q24H MOI PRN Reason: Protocol Piperacillin Sod/Tazobactam (Sod 3.375 gm/ Dextrose) 50 mls @ 100 mls/hr IVPB Q8H-IV MOI PRN Reason: Protocol Last Admin: 02/26/17 20:21 Dose: 100 mls/hr Famotidine/Sodium Chloride (Pepcid 20 Mg Premixed Ivpb -) 50 mls @ 100 mls/hr IVPB DAILY@0600 [facility] - History Source History Provided By: Medical Record Limitations to Obtaining History: Unresponsive - Past Medical History Rheumatology: Yes: Lupus - Alcohol/Substance Use Hx Alcohol Use: (UNKNOWN) History of Substance Use: reports: Prescription - Smoking History Smoking history: Unknown if ever smoked - Social History Usual Living Arrangement: Alone Home Medications - Allergies Allergies/Adverse Reactions: Allergies Allergy/AdvReac Type Severity Reaction Status Date / Time No Allergy Information Allergy Verified 02/26/17 13:17 Available - Home Medications Home Medications: Ambulatory Orders Unobtainable [Unobtainable] 02/26/17 Family Disease History - Family Disease History Family History: Unable to Obtain Review of Systems Unable to obtain ROS, reason: pt unresponsive Physical Exam Vital Signs: Vital Signs Temperature 98.0 F 02/26/17 16:17 Pulse Rate 93 H 02/26/17 16:17 Respiratory Rate 16 02/26/17 18:40 Blood Pressure 116/85 02/26/17 16:17 O2 Sat by Pulse Oximetry (%) 98 02/26/17 18:38 Eyes: Yes: PERRL HENT: Yes: Atraumatic Cardiovascular: Yes: Regular Rate and Rhythm, S1, S2. No: Gallop, Murmur, Rub Respiratory: Yes: CTA Bilaterally, Intubated, Mechanically Ventilated Gastrointestinal: Yes: Hypoactive Bowel Sounds Extremities: Yes: Cool Edema: No Peripheral Pulses WNL: Yes Integumentary: Yes: Other (various unstageable ulcers likely deep tissue injury with necrotic center and surrounding skin breakdown) Neurological: Yes: Unresponsive, Other ((+) pupillary, corneal, cough reflexes, flacid extremities.) Labs: CBCD WBC 18.2 K/mm3 (4.0-10.0) H 02/26/17 13:25 RBC 6.06 M/mm3 (3.60-5.2) H 02/26/17 13:25 Hgb 13.5 GM/dL (10.7-15.3) 02/26/17 13:25 Hct 44.9 % (32.4-45.2) 02/26/17 13:25 MCV 74.1 fl (80-96) L 02/26/17 13:25 MCHC 30.1 g/dl (32.0-36.0) L 02/26/17 13:25 RDW 22.9 % (11.6-15.6) H 02/26/17 13:25 Plt Count 221 K/MM3 (134-434) 02/26/17 13:25 MPV 10.0 fl (7.5-11.1) 02/26/17 13:25 CMP Sodium 154 mmol/L (136-145) H 02/26/17 13:25 Potassium 5.0 mmol/L (3.5-5.1) 02/26/17 13:25 Chloride 121 mmol/L (98-107) H 02/26/17 13:25 Carbon Dioxide 26 mmol/L (21-32) 02/26/17 13:25 Anion Gap 7 (8-16) L 02/26/17 13:25 BUN 112 mg/dL (7-18) H* 02/26/17 13:25 Creatinine 1.8 mg/dL (0.55-1.02) H 02/26/17 13:25 Creat Clearance w eGFR 30.86 (>60) 02/26/17 13:25 Calcium 7.6 mg/dL (8.5-10.1) L 02/26/17 13:25 Total Bilirubin 0.4 mg/dL (0.2-1.0) 02/26/17 13:25 AST 73 U/L (15-37) H 02/26/17 13:25 ALT 44 U/L (12-78) 02/26/17 13:25 Alkaline Phosphatase 74 U/L (45-117) 02/26/17 13:25 Total Protein 6.5 g/dl (6.4-8.2) 02/26/17 13:25 Albumin 3.6 g/dl (3.4-5.0) 02/26/17 13:25 Troponin, BNP 02/26/17 13:25 Troponin I 0.02 Hepatic Panel Total Bilirubin 0.4 mg/dL (0.2-1.0) 02/26/17 13:25 AST 73 U/L (15-37) H 02/26/17 13:25 ALT 44 U/L (12-78) 02/26/17 13:25 Alkaline Phosphatase 74 U/L (45-117) 02/26/17 13:25 Albumin 3.6 g/dl (3.4-5.0) 02/26/17 13:25 Imaging - Results Chest X-ray: Report Reviewed, Image Reviewed Cat Scan: Report Reviewed Problem List - Problems (1) Overdose Code(s): T50.901A - POISONING BY UNSP DRUG/MEDS/BIOL SUBST, ACCIDENTAL, INIT Qualifiers: Encounter type: initial encounter Injury intent: undetermined intent Qualified Code(s): T50.904A - Poisoning by unspecified drugs, medicaments and biological substances, undetermined, initial encounter (2) Polypharmacy Code(s): Z79.899 - 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 (3) Unresponsive Code(s): R41.89 - OTH SYMPTOMS AND SIGNS W COGNITIVE FUNCTIONS AND AWARENESS (4) TRENT (acute kidney injury) Code(s): N17.9 - ACUTE KIDNEY FAILURE, UNSPECIFIED (5) Rhabdomyolysis Code(s): M62.82 - RHABDOMYOLYSIS (6) Respiratory failure Code(s): J96.90 - RESPIRATORY FAILURE, UNSP, UNSP W HYPOXIA OR HYPERCAPNIA Assessment/Plan 46 y/o woman with h/o lupus, chronic opiate/barbiturate/benzo user who was found unresponsive after unknown down time with GCS 3, intubated for airway impression, found to have rhabdo with associated TRENT, (+) utox likely with drug overdose, mental status also likely compounded by metabolic disarray given hypernatremia, uremia and hyperammonemia. -continue mechanical ventilation - mental status precludes extubation at present -close hemodynamic monitoring given suspected overdose -IVF for rhabdo, trend CK - avoid further NS given hypernatremia -monitor creatinine, renally dose medications -vanco/ zosyn for emperic coverage per ID -cards to consult - trend trops for now -MRI when appropriate per neuro recs -monitor for benzo withdrawal given pt is chronic benzo user -ppx: sq heparin, pepcid Dispo: FULL CODE Mey Patterson ACNP CCT: 35 mins
[2017-02-26] MEDS: PIPERACILLIN/TAZOB 3.375 GM 3.375 GM in DEXTROSE 5%-WATER - 50 ML IVPB SCH (20:21)
[2017-02-26] MEDS: VANCOMYCIN 1,250 MG in DEXTROSE 5%-WATER - 250 ML IVPB SCH (21:26)
[2017-02-26] MEDS ORDERED: LACTATED RINGERS SOLUTION 1,000 ML IV SCH (21:45)
[2017-02-26] MEDS: HEPARIN NA (PORCINE) 5,000 UNITS/ML 1ML VIAL SQ SCH (23:38)
[2017-02-27] MEDS: PIPERACILLIN/TAZOB 3.375 GM 3.375 GM in DEXTROSE 5%-WATER - 50 ML IVPB SCH (03:13)
[2017-02-27] MEDS: HEPARIN NA (PORCINE) 5,000 UNITS/ML 1ML VIAL SQ SCH ×3 (06:09→23:48)
[2017-02-27] MEDS: FAMOTIDINE 20 MG/50 ML IVPB 50 ML IVPB SCH (06:09)
[2017-02-27 06:27] LABS: BASOPHIL 0.2 % (0-2.0); EOSINOPHIL 0.6 % (0-4.5); MCHC 31.3 g/dl (32.0-36.0); MEAN CELL VOLUME 73.3 fl (80-96); NEUTROPHILS 82.8 % (42.8-82.8); PLATELET COUNT 183 K/MM3 (134-434); RDW 22.9 % (11.6-15.6)
[2017-02-27 06:46] LABS: ALBUMIN 3.3 g/dl (3.4-5.0); ALK PHOS 76 U/L (45-117); ANION GAP 7 (8-16); BILIRUBIN,TOTAL 0.5 mg/dL (0.2-1.0); CALCIUM 8.1 mg/dL (8.5-10.1); CO2 24 mmol/L (21-32); CREATININE 1.4 mg/dL (0.55-1.02); GLUCOSE,RANDOM 177 mg/dL (74-106); SGOT/AST 117 U/L (15-37); SGPT/ALT 56 U/L (12-78); TOT PROT 6.4 g/dl (6.4-8.2)
--- NOTE | 2017-02-27 07:12 | PN ---
Physical Exam: SUBJECTIVE: Patient seen and examined OBJECTIVE: Vital Signs Period Temp Pulse Resp BP Sys/Pena Pulse Ox Last 24 Hr 98.0 F-99.2 F 93-117 16-21 98-146/75-94 98-100 Eyes: Yes: PERRL HENT: Yes: Atraumatic Cardiovascular: Yes: Regular Rate and Rhythm, S1, S2. No: Gallop, Murmur, Rub Respiratory: Yes: CTA Bilaterally, Intubated, Mechanically Ventilated Gastrointestinal: Yes: Hypoactive Bowel Sounds Extremities: Yes: Cool Edema: No Peripheral Pulses WNL: Yes Integumentary: Yes: skin ulcers on left flank Neurological: Yes: Unresponsive, Other ((+) pupillary, corneal, cough reflexes, flacid extremities.) Laboratory Results - last 24 hr 02/26/17 02/27/17 02/27/17 15:16 05:00 05:00 WBC 18.0 H RBC 5.17 Hgb 11.9 D Hct 37.9 D MCV 73.3 L MCH 23.0 L MCHC 31.3 L RDW 22.9 H Plt Count 183 MPV 10.0 Neutrophils % 82.8 Lymphocytes % 4.5 L Monocytes % 11.9 H Eosinophils % 0.6 Basophils % 0.2 Sodium 155 H Potassium 4.9 Chloride 124 H Carbon Dioxide 24 Anion Gap 7 L BUN 70 H D Creatinine 1.4 H D Creat Clearance w eGFR 40.66 Random Glucose 177 H Lactic Acid 1.7 Calcium 8.1 L Total Bilirubin 0.5 D AST 117 H D ALT 56 D Alkaline Phosphatase 76 Total Protein 6.4 Albumin 3.3 L Active Medications Generic Name Dose Route Start Last Admin Trade Name Derekq PRN Reason Stop Dose Admin Heparin Sodium (Porcine) 5,000 unit 02/26/17 22:00 02/27/17 06:09 Heparin - SQ 5,000 unit TID MOI Administration Vancomycin HCl 1,250 mg/ 250 mls @ 166.667 mls/hr 02/26/17 18:00 02/26/17 21:26 Dextrose IVPB 166.667 mls/hr Q24H MOI Administration Protocol Piperacillin Sod/Tazobactam 50 mls @ 100 mls/hr 02/26/17 18:00 02/27/17 03:13 Sod 3.375 gm/ Dextrose IVPB 100 mls/hr Q8H-IV MOI Administration Protocol Famotidine/Sodium Chloride 50 mls @ 100 mls/hr 02/27/17 06:00 02/27/17 06:09 Pepcid 20 Mg Premixed Ivpb - IVPB 100 mls/hr DAILY@0600 MOI Administration Lactated Ringer's 1,000 mls @ 100 mls/hr 02/26/17 21:45 02/26/17 22:30 Lactated Ringers Solution IV 100 mls/hr ASDIR MOI Administration ASSESSMENT/PLAN: The pt is a 46 year old female with PMH of lupus who was brought to the hospital by EMS after she was found at home unresponsive on the floor. 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
[2017-02-27 07:36] LABS: ARTERIAL BLD GAS O2 SATURATION 99.6 % (90-98.9); ARTERIAL BLOOD GAS BASE EXCESS -1.8 meq/l (-2-2); ARTERIAL BLOOD GAS HCO3 22.1 meq/L (22-26)
[2017-02-27 07:37] LABS: ALLENS TEST POSITIVE; ART PUNCT SITE RIGHT RADIAL; LPM/O2% 50; MECH. VENT. YES; PT. ON O2? YES; TYPE OF O2 VENT; VENT RATE 16; VT/PRESS 400
[2017-02-27] MEDS: PIPERACILLIN/TAZOB 3.375 GM 50 ML IVPB SCH ×2 (09:24→17:38)
--- NOTE | 2017-02-27 09:56 | PN ---
Progress Note (short form) - Note Progress Note: Neurology History of Present Illness 46 year old female presented to ER completely unresponsive, [place] coma scale of 3, who was "found down" possibly for several days and last known well two days ago. Found in her own urine and feces without explanation of why. Concern for airway protection and ER intubated and put on mechanical ventilation in the ER where I saw her. CT head completed and did not show acute changes. UTox positive for benzo, barbiturates, and opiods. Also with WBC of 18. Concern for drug overdose but will need further evaluation and managment. In ICU in close monitoring, intubated and mechanical ventilation, no spontaneous movements. Is blinking to threat and does have pupil response. Possible drug induced. On Zosyn , ID following. Active Medications Heparin Sodium (Porcine) (Heparin -) 5,000 unit SQ TID [facility] Last Admin: 02/27/17 06:09 Dose: 5,000 unit Vancomycin HCl 1,250 mg/ (Dextrose) 250 mls @ 166.667 mls/hr IVPB Q24H [facility] PRN Reason: Protocol Last Admin: 02/26/17 21:26 Dose: 166.667 mls/hr Famotidine/Sodium Chloride (Pepcid 20 Mg Premixed Ivpb -) 50 mls @ 100 mls/hr IVPB DAILY@0600 [facility] Last Admin: 02/27/17 06:09 Dose: 100 mls/hr Lactated Ringer's (Lactated Ringers Solution) 1,000 mls @ 100 mls/hr IV ASDIR [facility] Last Admin: 02/26/17 22:30 Dose: 100 mls/hr Piperacillin Sod/Tazobactam Sod (Zosyn 3.375gm Ivpb (Pre-Docked)) 50 mls @ 100 mls/hr IVPB Q8H-IV [facility] PRN Reason: Protocol Last Admin: 02/27/17 09:24 Dose: 100 mls/hr *Physical Exam Vital Signs Period Temp Pulse Resp BP Sys/Pena Pulse Ox Last 24 Hr 98.0 F-99.2 F 93-117 16-226 98-146/75-94 96-100 Comatose, not following commands, intubated, on mechanical ventilation Disheveled with malodorous scent Minimal response to nailbed pressure Not tracking Pupil responsive but sluggish Lungs sounds mechanical RRR Abdomen soft CBCD WBC 18.0 K/mm3 (4.0-10.0) H 02/27/17 05:00 RBC 5.17 M/mm3 (3.60-5.2) 02/27/17 05:00 Hgb 11.9 GM/dL (10.7-15.3) D 02/27/17 05:00 Hct 37.9 % (32.4-45.2) D 02/27/17 05:00 MCV 73.3 fl (80-96) L 02/27/17 05:00 MCHC 31.3 g/dl (32.0-36.0) L 02/27/17 05:00 RDW 22.9 % (11.6-15.6) H 02/27/17 05:00 Plt Count 183 K/MM3 (134-434) 02/27/17 05:00 MPV 10.0 fl (7.5-11.1) 02/27/17 05:00 CMP Sodium 155 mmol/L (136-145) H 02/27/17 05:00 Potassium 4.9 mmol/L (3.5-5.1) 02/27/17 05:00 Chloride 124 mmol/L (98-107) H 02/27/17 05:00 Carbon Dioxide 24 mmol/L (21-32) 02/27/17 05:00 Anion Gap 7 (8-16) L 02/27/17 05:00 BUN 70 mg/dL (7-18) H D 02/27/17 05:00 Creatinine 1.4 mg/dL (0.55-1.02) H D 02/27/17 05:00 Creat Clearance w eGFR 40.66 (>60) 02/27/17 05:00 Random Glucose 177 mg/dL (74-106) H 02/27/17 05:00 Calcium 8.1 mg/dL (8.5-10.1) L 02/27/17 05:00 Total Bilirubin 0.5 mg/dL (0.2-1.0) D 02/27/17 05:00 AST 117 U/L (15-37) H D 02/27/17 05:00 ALT 56 U/L (12-78) D 02/27/17 05:00 Alkaline Phosphatase 76 U/L (45-117) 02/27/17 05:00 Total Protein 6.4 g/dl (6.4-8.2) 02/27/17 05:00 Albumin 3.3 g/dl (3.4-5.0) L 02/27/17 05:00 CARDIAC ENZYMES Creatine Kinase 956 IU/L (26-192) H 02/26/17 13:25 Troponin I 0.02 ng/ml (0.00-0.05) 02/26/17 13:25 CT head reviewed Plan: 46 year old female presented to ER completely unresponsive, [place] coma scale of 3, who was "found down" possibly for several days and last known well two days ago. Found in her own urine and feces without explanation of why. Concern for airway protection and ER intubated and put on mechanical ventilation, under close observation in the ICU. CT head completed and did not show acute changes. UTox positive for benzo, barbiturates, and opiods. Concern for drug overdose ALso with WBC of 18. ID consulted and following, on Zosyn MRI brain when able Hydration as needed Continue mechanical ventilation, wean as able No evidence of seizures Will need further history from family Spoke to nurse Close monitoring in ICU Total Critical Care Time (minutes): 45
--- NOTE | 2017-02-27 10:14 | PN ---
Progress Note (short form) - Note Progress Note: Chief Complaint: Events noted, notes reviewed, Intubated remains unresponsive, sinus rhythm is noted History of Present Illness: Seen and examined in the ICU. Full consut dictated - Current Medication List Current Medications Heparin Sodium (Porcine) (Heparin -) 5,000 unit SQ TID [facility] Last Admin: 02/27/17 06:09 Dose: 5,000 unit Vancomycin HCl 1,250 mg/ (Dextrose) 250 mls @ 166.667 mls/hr IVPB Q24H [facility] PRN Reason: Protocol Last Admin: 02/26/17 21:26 Dose: 166.667 mls/hr Famotidine/Sodium Chloride (Pepcid 20 Mg Premixed Ivpb -) 50 mls @ 100 mls/hr IVPB DAILY@0600 [facility] Last Admin: 02/27/17 06:09 Dose: 100 mls/hr Lactated Ringer's (Lactated Ringers Solution) 1,000 mls @ 100 mls/hr IV ASDIR [facility] Last Admin: 02/26/17 22:30 Dose: 100 mls/hr Piperacillin Sod/Tazobactam Sod (Zosyn 3.375gm Ivpb (Pre-Docked)) 50 mls @ 100 mls/hr IVPB Q8H-IV [facility] PRN Reason: Protocol Last Admin: 02/27/17 09:24 Dose: 100 mls/hr Review of Systems Unable to obtain - Objective Vital Signs: Last Vital Signs Temp Pulse Resp BP Pulse Ox 98.9 F 101 H 16 98/77 99 02/27/17 06:16 02/27/17 08:00 02/27/17 08:00 02/27/17 08:00 02/26/17 20:35 Intake & Output 02/24/17 02/25/17 02/26/17 02/27/17 23:59 23:59 23:59 23:59 Intake Total 300 1100 Output Total 900 500 Balance -600 600 Weight 135 lb 0.001 oz 159 lb 2.78 oz Constitutional: unresponsive Neck: Supple Negative JVD Cardiovascular: S1 S2 Regular Rate and Rhythm No Murmurs Respiratory: Diminished Breath Sounds at the Bases Bilaterally Gastrointestinal: Soft Benign Normal Bowel Sounds Ext: Trace Edema Labs: Troponin, BNP 02/26/17 13:25 Troponin I 0.02 CBC, BMP 02/27/17 05:00 02/27/17 05:00 Hepatic Panel Total Bilirubin 0.5 mg/dL (0.2-1.0) D 02/27/17 05:00 AST 117 U/L (15-37) H D 02/27/17 05:00 ALT 56 U/L (12-78) D 02/27/17 05:00 Alkaline Phosphatase 76 U/L (45-117) 02/27/17 05:00 Albumin 3.3 g/dl (3.4-5.0) L 02/27/17 05:00 INR, PTT INR 1.47 (0.82-1.09) H 02/26/17 13:25 Assessment/Plan ASSESSMENT: 1. Unresponsiveness, toxic metabolic encephalopathy, possible drug overdose 2. Sepsis syndrome, source to be determined 3. History of Lupus 4. Acute on chronic renal insufficiency, possible underlying lupus nephritis, pre-renal azotemia 5. Hyperglycemia 6. Hypernatremia 7. Sinus tachycardia, reactionary to above PLAN: 1. IV fluids with caution and consider switching to D5 1/3 NS related to above noted Hypernatremia 2. Antibiotics as per the primary team 3. Ventilator management as per the critical care team 4. No therapy indicated for the above noted sinus tachycardia 5. Echocardiography to evaluate LV size and function Condition critical Nuvia Kelly MD
[2017-02-27] MEDS: DEXTROSE 5%-1/3 NS - 500 ML IV SCH ×3 (12:07→23:48)
--- NOTE | 2017-02-27 13:30 | PN ---
Teaching Attending Note Name of Resident: Guillermo Pelayo ATTENDING PHYSICIAN STATEMENT I saw and evaluated the patient. I reviewed the resident's note and discussed the case with the resident. I agree with the resident's findings and plan as documented. SUBJECTIVE: Patient seen and examined in the ICU. Remains intubated and sedated. Poorly responsive on AC mode of vent. No pressors. Intake & Output 02/24/17 02/25/17 02/26/17 02/27/17 23:59 23:59 23:59 23:59 Intake Total 300 1100 Output Total 900 500 Balance -600 600 Weight 135 lb 0.001 oz 159 lb 2.78 oz Last Vital Signs Temp Pulse Resp BP Pulse Ox 99.1 F 108 H 18 109/82 100 02/27/17 10:00 02/27/17 12:00 02/27/17 12:00 02/27/17 12:00 02/27/17 10:15 Active Medications Heparin Sodium (Porcine) (Heparin -) 5,000 unit SQ TID [facility] Last Admin: 02/27/17 06:09 Dose: 5,000 unit Vancomycin HCl 1,250 mg/ (Dextrose) 250 mls @ 166.667 mls/hr IVPB Q24H [facility] PRN Reason: Protocol Last Admin: 02/26/17 21:26 Dose: 166.667 mls/hr Famotidine/Sodium Chloride (Pepcid 20 Mg Premixed Ivpb -) 50 mls @ 100 mls/hr IVPB DAILY@0600 [facility] Last Admin: 02/27/17 06:09 Dose: 100 mls/hr Piperacillin Sod/Tazobactam Sod (Zosyn 3.375gm Ivpb (Pre-Docked)) 50 mls @ 100 mls/hr IVPB Q8H-IV [facility] PRN Reason: Protocol Last Admin: 02/27/17 09:24 Dose: 100 mls/hr Dextrose/Sodium Chloride (D5-1/3ns -) 500 mls @ 100 mls/hr IV ASDIR [facility] Last Admin: 02/27/17 12:07 Dose: 100 mls/hr HENT: Yes: Orally intubated Cardiovascular: Yes: Regular Rate and Rhythm, S1, S2. No: Gallop, Murmur, Rub Respiratory: Yes: Mechanically ventilated, Few scattered rhonchi Gastrointestinal: Yes: Hypoactive Bowel Sounds Extremities: Yes: Cool Edema: No Peripheral Pulses WNL: Yes Integumentary: Yes: Other (various unstageable ulcers likely deep tissue injury with necrotic center and surrounding skin breakdown) Neurological: Yes: Unresponsive, Other ((+) pupillary, corneal, cough reflexes, flacid extremities.) Labs: Laboratory Results - last 24 hr 02/26/17 02/26/17 02/26/17 13:02 13:25 13:25 WBC 18.2 H RBC 6.06 H Hgb 13.5 Hct 44.9 MCV 74.1 L MCH 22.3 L MCHC 30.1 L RDW 22.9 H Plt Count 221 MPV 10.0 Total Counted 100 Neutrophils % No Result Required. Neutrophils % (Manual) 85 H Band Neuts % (Manual) 2 Lymphocytes % No Result Required. Lymphocytes % (Manual) 8 Monocytes % Monocytes % (Manual) 5 Eosinophils % Eosinophils % (Manual) 0 Basophils % Hypochromia 1+ Platelet Estimate Adequate Anisocytosis 3+ Microcytosis 1+ Target Cells 1+ Ovalocytes 1+ PT with INR 16.30 H INR 1.47 H PTT (Actin FS) 28.5 Puncture Site ABG pH ABG pCO2 at Pt Temp ABG pO2 at Pt Temp ABG HCO3 ABG O2 Sat (Measured) ABG O2 Content ABG Base Excess Roney Test VBG pH POC VBG pCO2 POC VBG pO2 Mixed VBG HCO3 Carboxyhemoglobin Methemoglobin O2 Delivery Device Oxygen Flow Rate Vent Mode Vent Rate Mechanical Rate PEEP Pressure Support Vent Sodium Potassium Chloride Carbon Dioxide Anion Gap BUN Creatinine Creat Clearance w eGFR POC Glucometer [id number] Random Glucose Serum Osmolality Lactic Acid Calcium Total Bilirubin AST ALT Alkaline Phosphatase Ammonia Creatine Kinase Creatine Kinase Index CK-MB (CK-2) Troponin I Total Protein Albumin Urine Color Urine Appearance Urine pH Urine Protein Urine Glucose (UA) Urine Ketones Urine Blood Urine Nitrite Urine Bilirubin Urine Urobilinogen Opiates Screen Methadone Screen Barbiturate Screen Phencyclidine Screen Ur Amphetamines Screen MDMA (Ecstasy) Screen Benzodiazepines Screen Cocaine Screen U Marijuana (THC) Screen Alcohol, Quantitative Acetone, Qual Blood Type Antibody Screen 02/26/17 02/26/17 02/26/17 13:25 13:25 13:25 WBC RBC Hgb Hct MCV MCH MCHC RDW Plt Count MPV Total Counted Neutrophils % Neutrophils % (Manual) Band Neuts % (Manual) Lymphocytes % Lymphocytes % (Manual) Monocytes % Monocytes % (Manual) Eosinophils % Eosinophils % (Manual) Basophils % Hypochromia Platelet Estimate Anisocytosis Microcytosis Target Cells Ovalocytes PT with INR INR PTT (Actin FS) Puncture Site ABG pH ABG pCO2 at Pt Temp ABG pO2 at Pt Temp ABG HCO3 ABG O2 Sat (Measured) ABG O2 Content ABG Base Excess Roney Test VBG pH POC VBG pCO2 POC VBG pO2 Mixed VBG HCO3 Carboxyhemoglobin Methemoglobin O2 Delivery Device Oxygen Flow Rate Vent Mode Vent Rate Mechanical Rate PEEP Pressure Support Vent Sodium 154 H Potassium 5.0 Chloride 121 H Carbon Dioxide 26 Anion Gap 7 L BUN 112 H* Creatinine 1.8 H Creat Clearance w eGFR 30.86 POC Glucometer Random Glucose 159 H Serum Osmolality Lactic Acid 2.7 H* Calcium 7.6 L Total Bilirubin 0.4 AST 73 H ALT 44 Alkaline Phosphatase 74 Ammonia Creatine Kinase 956 H Creatine Kinase Index 0.1 CK-MB (CK-2) 1.409 Troponin I 0.02 Total Protein 6.5 Albumin 3.6 Urine Color Urine Appearance Urine pH Urine Protein Urine Glucose (UA) Urine Ketones Urine Blood Urine Nitrite Urine Bilirubin Urine Urobilinogen Opiates Screen Methadone Screen Barbiturate Screen Phencyclidine Screen Ur Amphetamines Screen MDMA (Ecstasy) Screen Benzodiazepines Screen Cocaine Screen U Marijuana (THC) Screen Alcohol, Quantitative Acetone, Qual Blood Type O POSITIVE Antibody Screen Negative 02/26/17 02/26/17 02/26/17 13:38 13:40 13:40 WBC RBC Hgb Hct MCV MCH MCHC RDW Plt Count MPV Total Counted Neutrophils % Neutrophils % (Manual) Band Neuts % (Manual) Lymphocytes % Lymphocytes % (Manual) Monocytes % Monocytes % (Manual) Eosinophils % Eosinophils % (Manual) Basophils % Hypochromia Platelet Estimate Anisocytosis Microcytosis Target Cells Ovalocytes PT with INR INR PTT (Actin FS) Puncture Site ABG pH ABG pCO2 at Pt Temp ABG pO2 at Pt Temp ABG HCO3 ABG O2 Sat (Measured) ABG O2 Content ABG Base Excess Roney Test VBG pH 7.35 POC VBG pCO2 48.7 POC VBG pO2 51.6 H Mixed VBG HCO3 26.4 H Carboxyhemoglobin Methemoglobin O2 Delivery Device Oxygen Flow Rate Vent Mode Vent Rate Mechanical Rate PEEP Pressure Support Vent Sodium Potassium Chloride Carbon Dioxide Anion Gap BUN Creatinine Creat Clearance w eGFR POC Glucometer Random Glucose Serum Osmolality Lactic Acid Calcium Total Bilirubin AST ALT Alkaline Phosphatase Ammonia 68.55 H Creatine Kinase Creatine Kinase Index CK-MB (CK-2) Troponin I Total Protein Albumin Urine Color Yellow Urine Appearance Clear Urine pH 5.0 Urine Protein Negative Urine Glucose (UA) Negative Urine Ketones Negative Urine Blood Negative Urine Nitrite Negative Urine Bilirubin Negative Urine Urobilinogen Negative Opiates Screen Methadone Screen Barbiturate Screen Phencyclidine Screen Ur Amphetamines Screen MDMA (Ecstasy) Screen Benzodiazepines Screen Cocaine Screen U Marijuana (THC) Screen Alcohol, Quantitative Acetone, Qual Blood Type Antibody Screen 02/26/17 02/26/17 02/26/17 13:40 13:40 13:40 WBC RBC Hgb Hct MCV MCH MCHC RDW Plt Count MPV Total Counted Neutrophils % Neutrophils % (Manual) Band Neuts % (Manual) Lymphocytes % Lymphocytes % (Manual) Monocytes % Monocytes % (Manual) Eosinophils % Eosinophils % (Manual) Basophils % Hypochromia Platelet Estimate Anisocytosis Microcytosis Target Cells Ovalocytes PT with INR INR PTT (Actin FS) Puncture Site ABG pH ABG pCO2 at Pt Temp ABG pO2 at Pt Temp ABG HCO3 ABG O2 Sat (Measured) ABG O2 Content ABG Base Excess Roney Test VBG pH POC VBG pCO2 POC VBG pO2 Mixed VBG HCO3 Carboxyhemoglobin Methemoglobin O2 Delivery Device Oxygen Flow Rate Vent Mode Vent Rate Mechanical Rate PEEP Pressure Support Vent Sodium Potassium Chloride Carbon Dioxide Anion Gap BUN Creatinine Creat Clearance w eGFR POC Glucometer Random Glucose Serum Osmolality 366 H Lactic Acid Calcium Total Bilirubin AST ALT Alkaline Phosphatase Ammonia Creatine Kinase Creatine Kinase Index CK-MB (CK-2) Troponin I Total Protein Albumin Urine Color Urine Appearance Urine pH Urine Protein Urine Glucose (UA) Urine Ketones Urine Blood Urine Nitrite Urine Bilirubin Urine Urobilinogen Opiates Screen Positive Methadone Screen Negative Barbiturate Screen Positive Phencyclidine Screen Negative Ur Amphetamines Screen Negative MDMA (Ecstasy) Screen Negative Benzodiazepines Screen Positive Cocaine Screen Negative U Marijuana (THC) Screen Negative Alcohol, Quantitative < 5.0 Acetone, Qual Trace H Blood Type Antibody Screen 02/26/17 02/26/17 02/26/17 13:48 13:48 15:16 WBC RBC Hgb Hct MCV MCH MCHC RDW Plt Count MPV Total Counted Neutrophils % Neutrophils % (Manual) Band Neuts % (Manual) Lymphocytes % Lymphocytes % (Manual) Monocytes % Monocytes % (Manual) Eosinophils % Eosinophils % (Manual) Basophils % Hypochromia Platelet Estimate Anisocytosis Microcytosis Target Cells Ovalocytes PT with INR INR PTT (Actin FS) Puncture Site Left radial ABG pH 7.33 L ABG pCO2 at Pt Temp 48.0 H ABG pO2 at Pt Temp 445.0 H* ABG HCO3 24.3 ABG O2 Sat (Measured) 99.8 H* ABG O2 Content 17.9 ABG Base Excess -1.4 Roney Test Positive VBG pH POC VBG pCO2 POC VBG pO2 Mixed VBG HCO3 Carboxyhemoglobin 1.0 Methemoglobin 0.6 O2 Delivery Device Vent Oxygen Flow Rate 100 Vent Mode Ac Vent Rate 12 Mechanical Rate Yes PEEP 5.0 Pressure Support Vent 400 Sodium Potassium Chloride Carbon Dioxide Anion Gap BUN Creatinine Creat Clearance w eGFR POC Glucometer Random Glucose Serum Osmolality Lactic Acid 1.7 Calcium Total Bilirubin AST ALT Alkaline Phosphatase Ammonia Creatine Kinase Creatine Kinase Index CK-MB (CK-2) Troponin I Total Protein Albumin Urine Color Urine Appearance Urine pH Urine Protein Urine Glucose (UA) Urine Ketones Urine Blood Urine Nitrite Urine Bilirubin Urine Urobilinogen Opiates Screen Methadone Screen Barbiturate Screen Phencyclidine Screen Ur Amphetamines Screen MDMA (Ecstasy) Screen Benzodiazepines Screen Cocaine Screen U Marijuana (THC) Screen Alcohol, Quantitative Acetone, Qual Blood Type Antibody Screen 02/27/17 02/27/17 02/27/17 05:00 05:00 07:10 WBC 18.0 H RBC 5.17 Hgb 11.9 D Hct 37.9 D MCV 73.3 L MCH 23.0 L MCHC 31.3 L RDW 22.9 H Plt Count 183 MPV 10.0 Total Counted Neutrophils % 82.8 Neutrophils % (Manual) Band Neuts % (Manual) Lymphocytes % 4.5 L Lymphocytes % (Manual) Monocytes % 11.9 H Monocytes % (Manual) Eosinophils % 0.6 Eosinophils % (Manual) Basophils % 0.2 Hypochromia Platelet Estimate Anisocytosis Microcytosis Target Cells Ovalocytes PT with INR INR PTT (Actin FS) Puncture Site Right radial ABG pH 7.40 ABG pCO2 at Pt Temp 36.4 D ABG pO2 at Pt Temp 208.0 H* ABG HCO3 22.1 ABG O2 Sat (Measured) 99.6 H* ABG O2 Content 16.9 ABG Base Excess -1.8 Roney Test Positive VBG pH POC VBG pCO2 POC VBG pO2 Mixed VBG HCO3 Carboxyhemoglobin Methemoglobin O2 Delivery Device Vent Oxygen Flow Rate 50 Vent Mode A/c Vent Rate 16 Mechanical Rate Yes PEEP 5.0 Pressure Support Vent 400 Sodium 155 H Potassium 4.9 Chloride 124 H Carbon Dioxide 24 Anion Gap 7 L BUN 70 H D Creatinine 1.4 H D Creat Clearance w eGFR 40.66 POC Glucometer Random Glucose 177 H Serum Osmolality Lactic Acid Calcium 8.1 L Total Bilirubin 0.5 D AST 117 H D ALT 56 D Alkaline Phosphatase 76 Ammonia Creatine Kinase Creatine Kinase Index CK-MB (CK-2) Troponin I Total Protein 6.4 Albumin 3.3 L Urine Color Urine Appearance Urine pH Urine Protein Urine Glucose (UA) Urine Ketones Urine Blood Urine Nitrite Urine Bilirubin Urine Urobilinogen Opiates Screen Methadone Screen Barbiturate Screen Phencyclidine Screen Ur Amphetamines Screen MDMA (Ecstasy) Screen Benzodiazepines Screen Cocaine Screen U Marijuana (THC) Screen Alcohol, Quantitative Acetone, Qual Blood Type Antibody Screen Problem List - Problems (1) Overdose Code(s): T50.901A - POISONING BY UNSP DRUG/MEDS/BIOL SUBST, ACCIDENTAL, INIT Qualifiers: Encounter type: initial encounter Injury intent: undetermined intent Qualified Code(s): T50.904A - Poisoning by unspecified drugs, medicaments and biological substances, undetermined, initial encounter (2) Polypharmacy Code(s): Z79.899 - OTHER GENERAL [employer] (CURRENT) DRUG THERAPY (3) Unresponsive Code(s): R41.89 - OTH SYMPTOMS AND SIGNS W COGNITIVE FUNCTIONS AND AWARENESS (4) TRENT (acute kidney injury) Code(s): N17.9 - ACUTE KIDNEY FAILURE, UNSPECIFIED (5) Rhabdomyolysis Code(s): M62.82 - RHABDOMYOLYSIS (6) Respiratory failure Code(s): J96.90 - RESPIRATORY FAILURE, UNSP, UNSP W HYPOXIA OR HYPERCAPNIA Assessment/Plan Maintain off sedation SBTs once mental status improves VTE prophylaxis IVF Follow lytes ID VTE prophylaxis Dr Chambers Critical care time spent in reviewing chart, evaluating patient and formulating plan - 36 minutes.
--- NOTE | 2017-02-27 14:20 | CONS ---
DATE OF CONSULTATION: 02/27/2017 REQUESTING PHYSICIAN: Iliana Vivar MD CHIEF COMPLAINT: Unresponsiveness, intubation, cardiovascular evaluation. HISTORY OF PRESENT ILLNESS: A 46-year-old female of descent. History was predominantly obtained from the chart. Patient currently is intubated, unresponsive, who presented to [facility] Emergency Room after she was found by a neighbor to be unresponsive, covered in emesis, urine, and feces. Patient was suspected of having drug overdose. At which point, Narcan therapy was administered without any response. Patient was sedated and intubated, and currently, she is hemodynamically stable in the intensive care unit. Patient is not responsive to tactile stimuli. Patient apparently has a history of lupus erythematosus. Sinus tachycardia was noted. Patient does not appear to be in any distress currently. No additional history is available. PAST MEDICAL HISTORY: Lupus erythematosus. PAST SURGICAL HISTORY: Not available. SOCIAL HISTORY: Not available. FAMILY HISTORY: Not available. ALLERGIES: No known medical allergies. MEDICAL THERAPY: Currently includes Zosyn 50 mL every 8 hours, vancomycin 250 mL every 24 hours, subcutaneous heparin 5000 units 3 times a day, Pepcid 20 mg IV daily, and Ringer's lactate IV solution. REVIEW OF SYSTEMS: Not obtainable. PHYSICAL EXAMINATION: Vital Signs: Blood pressure is 98/77 mmHg. Pulse rate is 101 beats per minute. Temperature 98.9. Head and Neck: Pupils are sluggish, not reactive to light and accommodation. External ocular muscles cannot be evaluated. Anicteric sclerae. Negative JVD. No bruit appreciated. Chest: Diminished breath sounds at the bases with scattered rhonchi. Cardiovascular: S1, S2. Regular. No murmurs appreciated. Abdomen: Soft, benign. Normoactive bowel sounds. Extremities: Trace edema. Intact distal pulses. No calf tenderness. DIAGNOSTIC DATA: Chest x-rat report was noted. CT scan of the head report was noted. CBC reveals a white cell count 18.0, hemoglobin 11.9, platelet count 183. INR 1.47. ABG of 7.40, pCO2 of 36.4, pO2 of 208, saturation 99.6%. Basic metabolic profile revealed sodium 155, potassium 4.9, BUN 70, creatinine 1.4, glucose 177. AST 117. Toxicology revealed opiates and barbiturate and benzodiazepine to be positive. ASSESSMENT: 1. Unresponsiveness, toxic metabolic encephalopathy, possible drug overdose. 2. Sepsis syndrome; source to be determined. 3. History of lupus erythematosus. 4. Wzxgl-dl-jlmuhen renal insufficiency, possible underlying lupus nephritis, prerenal azotemia. 5. Hyperglycemia. 6. Hypernatremia. 7. Sinus tachycardia, most likely reactionary to the above-noted presentation. RECOMMENDATION: 1. IV fluid with caution and consider switching to D5 one-third normal saline related to the above-noted hypernatremia. 2. Antibiotics as per the primary team. 3. Ventilator management as per the critical care team. 4. No therapy indicated for the above-noted reactionary sinus tachycardia. 5. Echocardiography for evaluation of left ventricular size and function. CONDITION: Critical. Thank you for the kind referral. GEETA WESTON M.D. [id number]
--- NOTE | 2017-02-27 15:23 | PN ---
Progress Note, Physician History of Present Illness: patient still with minimal response though continues to b afebrile wbc continues to be high - Current Medication List Current Medications: Active Medications Heparin Sodium (Porcine) (Heparin -) 5,000 unit SQ TID [facility] Last Admin: 02/27/17 15:04 Dose: 5,000 unit Vancomycin HCl 1,250 mg/ (Dextrose) 250 mls @ 166.667 mls/hr IVPB Q24H [facility] PRN Reason: Protocol Last Admin: 02/26/17 21:26 Dose: 166.667 mls/hr Famotidine/Sodium Chloride (Pepcid 20 Mg Premixed Ivpb -) 50 mls @ 100 mls/hr IVPB DAILY@0600 [facility] Last Admin: 02/27/17 06:09 Dose: 100 mls/hr Piperacillin Sod/Tazobactam Sod (Zosyn 3.375gm Ivpb (Pre-Docked)) 50 mls @ 100 mls/hr IVPB Q8H-IV [facility] PRN Reason: Protocol Last Admin: 02/27/17 09:24 Dose: 100 mls/hr Dextrose/Sodium Chloride (D5-1/3ns -) 500 mls @ 100 mls/hr IV ASDIR [facility] Last Admin: 02/27/17 12:07 Dose: 100 mls/hr - Objective Vital Signs: Vital Signs Temperature 98.8 F 02/27/17 14:00 Pulse Rate 102 H 02/27/17 14:00 Respiratory Rate 17 02/27/17 14:15 Blood Pressure 97/73 02/27/17 14:00 O2 Sat by Pulse Oximetry (%) 100 02/27/17 10:15 Constitutional: Yes: Other Cardiovascular: Yes: Regular Rate and Rhythm Respiratory: Yes: Intubated, Mechanically Ventilated Gastrointestinal: Yes: Normal Bowel Sounds, Soft Musculoskeletal: Yes: WNL Extremities: Yes: WNL Wound/Incision: Yes: Other (as described before) Neurological: Yes: Other Psychiatric: Yes: Other Labs: CBC, BMP 02/27/17 05:00 02/27/17 05:00 INR, PTT INR 1.47 (0.82-1.09) H 02/26/17 13:25 Assessment/Plan Problem List - Problems (1) Overdose Code(s): T50.901A - POISONING BY UNSP DRUG/MEDS/BIOL SUBST, ACCIDENTAL, INIT Qualifiers: Encounter type: initial encounter Injury intent: undetermined intent Qualified Code(s): T50.904A - Poisoning by unspecified drugs, medicaments and biological substances, undetermined, initial encounter (2) Polypharmacy Code(s): Z79.899 - OTHER [employer]I[facility] (CURRENT) DRUG THERAPY (3) Unresponsive Code(s): R41.89 - OTH SYMPTOMS AND SIGNS W COGNITIVE FUNCTIONS AND AWARENESS (4) TRENT (acute kidney injury) Code(s): N17.9 - ACUTE KIDNEY FAILURE, UNSPECIFIED (5) Rhabdomyolysis Code(s): M62.82 - RHABDOMYOLYSIS (6) Respiratory failure Code(s): J96.90 - RESPIRATORY FAILURE, UNSP, UNSP W HYPOXIA OR HYPERCAPNIA asp pna leukocytosis wbc still on the higher side plan abx icu close monitoring for fever monitor labx rest as per primary care follow jean-pierreo ute cc time 45 min
--- NOTE | 2017-02-27 17:30 | PN ---
Progress Note, Physician History of Present Illness: intubated - Current Medication List Current Medications: Active Medications Heparin Sodium (Porcine) (Heparin -) 5,000 unit SQ TID [facility] Last Admin: 02/27/17 15:04 Dose: 5,000 unit Vancomycin HCl 1,250 mg/ (Dextrose) 250 mls @ 166.667 mls/hr IVPB Q24H [facility] PRN Reason: Protocol Last Admin: 02/26/17 21:26 Dose: 166.667 mls/hr Famotidine/Sodium Chloride (Pepcid 20 Mg Premixed Ivpb -) 50 mls @ 100 mls/hr IVPB DAILY@0600 [facility] Last Admin: 02/27/17 06:09 Dose: 100 mls/hr Piperacillin Sod/Tazobactam Sod (Zosyn 3.375gm Ivpb (Pre-Docked)) 50 mls @ 100 mls/hr IVPB Q8H-IV [facility] PRN Reason: Protocol Last Admin: 02/27/17 09:24 Dose: 100 mls/hr Dextrose/Sodium Chloride (D5-1/3ns -) 500 mls @ 100 mls/hr IV ASDIR [facility] Last Admin: 02/27/17 16:51 Dose: 100 mls/hr - Objective Vital Signs: Vital Signs Temperature 98.8 F 02/27/17 14:00 Pulse Rate 103 H 02/27/17 16:00 Respiratory Rate 16 02/27/17 16:00 Blood Pressure 99/80 02/27/17 16:00 O2 Sat by Pulse Oximetry (%) 100 02/27/17 10:15 Constitutional: Yes: No Distress HENT: Yes: Atraumatic Neck: Yes: Supple Cardiovascular: Yes: Regular Rate and Rhythm Respiratory: Yes: CTA Bilaterally Gastrointestinal: Yes: Normal Bowel Sounds Extremities: Yes: WNL Integumentary: Yes: Skin Tear (on left side of chest,left hip and right side of chest), Other Labs: CBC, BMP 02/27/17 05:00 02/27/17 05:00 INR, PTT INR 1.47 (0.82-1.09) H 02/26/17 13:25 Problem List - Problems (1) TRENT (acute kidney injury) Assessment/Plan: on iv hydration Code(s): N17.9 - ACUTE KIDNEY FAILURE, UNSPECIFIED (2) Anoxic brain injury Assessment/Plan: neuro checks no change in status Code(s): G93.1 - ANOXIC BRAIN DAMAGE, NOT ELSEWHERE CLASSIFIED (3) Coma Code(s): R40.20 - UNSPECIFIED COMA Qualifiers: Coma depth: Rossy coma 3-8 Coma timing: at arrival to emergency department Qualified Code(s): R40.2432 - Rossy coma scale score 3-8, at arrival to emergency department (4) Overdose Assessment/Plan: check levels Code(s): T50.901A - POISONING BY UNSP DRUG/MEDS/BIOL SUBST, ACCIDENTAL, INIT Qualifiers: Encounter type: initial encounter Injury intent: undetermined intent Qualified Code(s): T50.904A - Poisoning by unspecified drugs, medicaments and biological substances, undetermined, initial encounter (5) Polypharmacy Code(s): Z79.899 - OTHER [facility] (CURRENT) DRUG THERAPY (6) Respiratory failure Assessment/Plan: intubated sedated Code(s): J96.90 - RESPIRATORY FAILURE, UNSP, UNSP W HYPOXIA OR HYPERCAPNIA (7) Rhabdomyolysis Assessment/Plan: ivf will check cpk Code(s): M62.82 - RHABDOMYOLYSIS (8) Unresponsive Code(s): R41.89 - OTH SYMPTOMS AND SIGNS W COGNITIVE FUNCTIONS AND AWARENESS Assessment/Plan cc time 35 min
[2017-02-27] MEDS: VANCOMYCIN 1,250 MG in DEXTROSE 5%-WATER - 250 ML IVPB SCH (17:37)
--- NOTE | 2017-02-27 21:40 | EKG ---
Test Reason : Blood Pressure : / mmHG Vent. Rate : 109 BPM Atrial Rate : 109 BPM P-R Int : 096 ms QRS Dur : 082 ms QT Int : 356 ms P-R-T Axes : 055 058 023 degrees QTc Int : 479 ms SINUS TACHYCARDIA WITH SHORT TX OTHERWISE NORMAL ECG NO PREVIOUS ECGS AVAILABLE REPEAT EKG IF CLINICALLY INDICATED Confirmed by DANIEL COSBY MD ([id number]) on 02/27/2017 9:39:56 PM Referred By: Confirmed By:DANIEL COSBY MD
[2017-02-28] MEDS: PIPERACILLIN/TAZOB 3.375 GM 50 ML IVPB SCH ×3 (01:50→17:42)
[2017-02-28] MEDS: FAMOTIDINE 20 MG/50 ML IVPB 50 ML IVPB SCH (05:37)
[2017-02-28] MEDS: HEPARIN NA (PORCINE) 5,000 UNITS/ML 1ML VIAL SQ SCH ×3 (05:38→22:37)
[2017-02-28 06:58] LABS: BASOPHIL 0.3 % (0-2.0); EOSINOPHIL 1.4 % (0-4.5); MCH 22.9 pg (25.7-33.7); MCHC 31.5 g/dl (32.0-36.0); MEAN CELL VOLUME 72.8 fl (80-96); MEAN PLT VOLUME 12.4 fl (7.5-11.1); PLATELET COUNT 197 K/MM3 (134-434); RDW 22.4 % (11.6-15.6); WHITE BLOOD COUNT 14.6 K/mm3 (4.0-10.0)
[2017-02-28 07:42] LABS: ARTERIAL BLD GAS O2 SATURATION 98.6 % (90-98.9); ARTERIAL BLOOD GAS BASE EXCESS 1.4 meq/l (-2-2); ARTERIAL BLOOD GAS HCO3 25.2 meq/L (22-26); ARTERIAL BLOOD GAS pH 7.43 (7.35-7.45)
[2017-02-28 07:43] LABS: ALLENS TEST POSITIVE; ART PUNCT SITE RIGHT RADIAL; LPM/O2% 40%; MECH. VENT. YES; PT. ON O2? YES; TYPE OF O2 VENT; VENT RATE 16; VT/PRESS 400
[2017-02-28 09:29] LABS: ANION GAP 7 (8-16); BILIRUBIN,TOTAL 0.5 mg/dL (0.2-1.0); CO2 26 mmol/L (21-32); CREATININE 1.2 mg/dL (0.55-1.02); GLUCOSE,RANDOM 166 mg/dL (74-106); SGOT/AST 81 U/L (15-37); SGPT/ALT 44 U/L (12-78); TOT PROT 5.9 g/dl (6.4-8.2)
[2017-02-28 09:37] LABS: THYROID STIMULATING HORMONE 1.91 uIU/ml (0.358-3.74)
[2017-02-28 09:44] LABS: ALK PHOS 76 U/L (45-117)
[2017-02-28] MEDS ORDERED: BACITRACIN 15 GM TUBE TOPICAL OINTMENT TP SCH (10:00)
--- NOTE | 2017-02-28 10:22 | PN ---
Progress Note, Physician History of Present Illness: Intubated on mechanical ventilation, no spontaneous movements. Is blinking to threat and does have pupil response. - Current Medication List Current Medications: Active Medications Albuterol/Ipratropium (Duoneb -) 1 amp NEB TIDR [facility] Bacitracin (Bacitracin -) 1 applic TP BID [facility] Chlorhexidine Gluconate (Peridex -) 15 ml MM BID [facility] Heparin Sodium (Porcine) (Heparin -) 5,000 unit SQ TID [facility] Last Admin: 02/28/17 05:38 Dose: 5,000 unit Vancomycin HCl 1,250 mg/ (Dextrose) 250 mls @ 166.667 mls/hr IVPB Q24H [facility] PRN Reason: Protocol Last Admin: 02/27/17 17:37 Dose: 166.667 mls/hr Famotidine/Sodium Chloride (Pepcid 20 Mg Premixed Ivpb -) 50 mls @ 100 mls/hr IVPB DAILY@0600 [facility] Last Admin: 02/28/17 05:37 Dose: 100 mls/hr Piperacillin Sod/Tazobactam Sod (Zosyn 3.375gm Ivpb (Pre-Docked)) 50 mls @ 100 mls/hr IVPB Q8H-IV [facility] PRN Reason: Protocol Last Admin: 02/28/17 09:15 Dose: 100 mls/hr Dextrose/Sodium Chloride (D5-1/3ns -) 500 mls @ 100 mls/hr IV ASDIR [facility] Last Admin: 02/27/17 23:48 Dose: 100 mls/hr - Objective Vital Signs: Vital Signs Temperature 98.8 F 02/28/17 07:39 Pulse Rate 94 H 02/28/17 09:00 Respiratory Rate 16 02/28/17 09:00 Blood Pressure 114/79 02/28/17 09:00 O2 Sat by Pulse Oximetry (%) 100 02/28/17 08:15 Neck: Yes: Supple Cardiovascular: Yes: Regular Rate and Rhythm Respiratory: Yes: Intubated, Mechanically Ventilated, Rhonchi Gastrointestinal: Yes: Soft, Hypoactive Bowel Sounds Edema: No Labs: CBC, BMP 02/28/17 05:15 02/28/17 05:15 INR, PTT INR 1.47 (0.82-1.09) H 02/26/17 13:25 - ....Imaging Chest X-ray: Report Reviewed (NAD) Cat Scan: Report Reviewed (HCT: Negative) Problem List - Problems (1) Overdose Code(s): T50.901A - POISONING BY UNSP DRUG/MEDS/BIOL SUBST, ACCIDENTAL, INIT Qualifiers: Encounter type: initial encounter Injury intent: undetermined intent Qualified Code(s): T50.904A - Poisoning by unspecified drugs, medicaments and biological substances, undetermined, initial encounter (2) Respiratory failure Code(s): J96.90 - RESPIRATORY FAILURE, UNSP, UNSP W HYPOXIA OR HYPERCAPNIA Qualifiers: Chronicity: acute (3) Unresponsive Code(s): R41.89 - OTH SYMPTOMS AND SIGNS W COGNITIVE FUNCTIONS AND AWARENESS (4) Leukocytosis Code(s): D72.829 - ELEVATED WHITE BLOOD CELL COUNT, UNSPECIFIED Qualifiers: Leukocytosis type: unspecified Qualified Code(s): D72.829 - Elevated white blood cell count, unspecified (5) Aspiration pneumonia Code(s): J69.0 - PNEUMONITIS DUE TO INHALATION OF FOOD AND VOMIT Qualifiers: Aspiration pneumonia type: due to vomit Lung location: unspecified part of lung (6) TRENT (acute kidney injury) Code(s): N17.9 - ACUTE KIDNEY FAILURE, UNSPECIFIED (7) Hypernatremia Code(s): E87.0 - HYPEROSMOLALITY AND HYPERNATREMIA Assessment/Plan 1. Unresponsiveness, toxic metabolic encephalopathy, suspect drug overdose ( UTox positive for benzo, barbiturates, and opiods) 2. Leukocytosis, sepsis syndrome, consider asp PNA 3. History of Lupus 4. 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 Hyperglycemia 6. Hypernatremia 7. Sinus tachycardia, reactionary to above PLAN: 1. IVF and free water repletion 2. Antibiotics course per ID 3. Ventilator management as per the critical care team, BD 4. No therapy indicated for the above noted sinus tachycardia 5. Echocardiography to evaluate LV size and function 6. DVT and GI prophylaxis 7. Brain MRI when ready
--- NOTE | 2017-02-28 10:23 | PN ---
Progress Note (short form) - Note Progress Note: Neurology History of Present Illness 46 year old female presented to ER completely unresponsive, Rossy coma scale of 3, who was "found down" possibly for several days and last known well two days ago. Found in her own urine and feces without explanation of why. Concern for airway protection and ER intubated and put on mechanical ventilation in the ER. CT head completed and did not show acute changes. UTox positive for benzo, barbiturates, and opiods. Also with WBC of 18. Concern for drug overdose, in ICU in close monitoring, intubated and mechanical ventilation, no spontaneous movements. Is blinking to threat and does have pupil response. On Zosyn, ID following. Spoke to ICU team in detail, would like to repeat CT head to rule out acute changes and evaluate for any anoxic brain injury, MRI would be ideal but not feasible with vent. ICU team also considering LP to try to identify source, for now presumed drug induced. Active Medications Albuterol/Ipratropium (Duoneb -) 1 amp NEB TIDR [facility] Bacitracin (Bacitracin -) 1 applic TP BID [facility] Chlorhexidine Gluconate (Peridex -) 15 ml MM BID [facility] Heparin Sodium (Porcine) (Heparin -) 5,000 unit SQ TID [facility] Last Admin: 02/28/17 05:38 Dose: 5,000 unit Vancomycin HCl 1,250 mg/ (Dextrose) 250 mls @ 166.667 mls/hr IVPB Q24H [facility] PRN Reason: Protocol Last Admin: 02/27/17 17:37 Dose: 166.667 mls/hr Famotidine/Sodium Chloride (Pepcid 20 Mg Premixed Ivpb -) 50 mls @ 100 mls/hr IVPB DAILY@0600 [facility] Last Admin: 02/28/17 05:37 Dose: 100 mls/hr Piperacillin Sod/Tazobactam Sod (Zosyn 3.375gm Ivpb (Pre-Docked)) 50 mls @ 100 mls/hr IVPB Q8H-IV [facility] PRN Reason: Protocol Last Admin: 02/28/17 09:15 Dose: 100 mls/hr Dextrose/Sodium Chloride (D5-1/3ns -) 500 mls @ 100 mls/hr IV ASDIR [facility] Last Admin: 02/27/17 23:48 Dose: 100 mls/hr *Physical Exam Last Vital Signs Temp Pulse Resp BP Pulse Ox 98.8 F 94 H 16 114/79 100 02/28/17 07:39 02/28/17 09:00 02/28/17 09:00 02/28/17 09:00 02/28/17 08:15 Comatose, not following commands, intubated, on mechanical ventilation Disheveled with malodorous scent Minimal response to nailbed pressure Not tracking Pupil responsive but sluggish Lungs sounds mechanical RRR Abdomen soft CBCD WBC 14.6 K/mm3 (4.0-10.0) H 02/28/17 05:15 RBC 4.66 M/mm3 (3.60-5.2) 02/28/17 05:15 Hgb 10.7 GM/dL (10.7-15.3) D 02/28/17 05:15 Hct 33.9 % (32.4-45.2) 02/28/17 05:15 MCV 72.8 fl (80-96) L 02/28/17 05:15 MCHC 31.5 g/dl (32.0-36.0) L 02/28/17 05:15 RDW 22.4 % (11.6-15.6) H 02/28/17 05:15 Plt Count 197 K/MM3 (134-434) 02/28/17 05:15 MPV 12.4 fl (7.5-11.1) H D 02/28/17 05:15 CMP Sodium 157 mmol/L (136-145) H 02/28/17 05:15 Potassium 4.3 mmol/L (3.5-5.1) 02/28/17 05:15 Chloride 124 mmol/L (98-107) H 02/28/17 05:15 Carbon Dioxide 26 mmol/L (21-32) 02/28/17 05:15 Anion Gap 7 (8-16) L 02/28/17 05:15 BUN 38 mg/dL (7-18) H D 02/28/17 05:15 Creatinine 1.2 mg/dL (0.55-1.02) H 02/28/17 05:15 Creat Clearance w eGFR 48.58 (>60) 02/28/17 05:15 Calcium 8.0 mg/dL (8.5-10.1) L 02/28/17 05:15 Total Bilirubin 0.5 mg/dL (0.2-1.0) 02/28/17 05:15 AST 81 U/L (15-37) H D 02/28/17 05:15 ALT 44 U/L (12-78) D 02/28/17 05:15 Alkaline Phosphatase 76 U/L (45-117) 02/28/17 05:15 Total Protein 5.9 g/dl (6.4-8.2) L 02/28/17 05:15 Albumin 3.0 g/dl (3.4-5.0) L 02/28/17 05:15 CT head reviewed Plan: 46 year old female presented to ER completely unresponsive, Rossy coma scale of 3, who was "found down" possibly for several days and last known well two days ago. Found in her own urine and feces without explanation of why. Concern for airway protection and ER intubated and put on mechanical ventilation, under close observation in the ICU. CT head completed and did not show acute changes. Repeat CT head for today UTox positive for benzo, barbiturates, and opiods. Concern for drug overdose ALso with WBC of 18. ID consulted and following, on Zosyn. being considered for LP MRI brain when able Hydration as needed Continue mechanical ventilation, wean as able No evidence of seizures Close monitoring in ICU Total Critical Care Time (minutes): 45
[2017-02-28] MEDS: CHLORHEXIDINE GLUCONATE 0.12% 15ML CUP MM SCH ×2 (11:29→22:37)
[2017-02-28 11:53] LABS: INR 1.61 (0.82-1.09); PROTHROMBIN TIME (PATIENT) 17.9 SEC (9.98-11.88)
[2017-02-28] MEDS: DEXTROSE 5%-1/3 NS - 500 ML IV SCH (12:33)
[2017-02-28] MEDS: BACITRACIN 15 GM TUBE TOPICAL OINTMENT TP SCH ×2 (12:35→22:37)
--- NOTE | 2017-02-28 13:10 | PN ---
Teaching Attending Note Name of Resident: Lev Toth ATTENDING PHYSICIAN STATEMENT I saw and evaluated the patient. I reviewed the resident's note and discussed the case with the resident. I agree with the resident's findings and plan as documented. SUBJECTIVE: Pt seen and examined in the ICU. Remains intubated, poorly responsive off sedation. Reflexes intact. No fevers recorded. OBJECTIVE: Last Vital Signs Temp Pulse Resp BP Pulse Ox 98.7 F 99 H 20 109/77 100 02/28/17 10:00 02/28/17 12:00 02/28/17 12:00 02/28/17 12:00 02/28/17 08:15 Intake & Output 02/25/17 02/26/17 02/27/17 02/28/17 23:59 23:59 23:59 23:59 Intake Total 300 2750 1250 Output Total 900 1450 300 Balance -600 1300 950 Weight 135 lb 0.001 oz 159 lb 2.78 oz 160 lb 14.999 oz Gen: intubated, poorly responsive Neck: some resistance with neck flexion Heart: RRR Lung: decreased breath sounds at the bases Abd: soft, nontender Ext: no edema CBC, BMP 02/28/17 05:15 02/28/17 05:15 Active Medications Albuterol/Ipratropium (Duoneb -) 1 amp NEB TIDR [facility] Bacitracin (Bacitracin -) 1 applic TP BID [facility] Last Admin: 02/28/17 12:35 Dose: 1 applic Chlorhexidine Gluconate (Peridex -) 15 ml MM BID [facility] Heparin Sodium (Porcine) (Heparin -) 5,000 unit SQ TID [facility] Last Admin: 02/28/17 05:38 Dose: 5,000 unit Vancomycin HCl 1,250 mg/ (Dextrose) 250 mls @ 166.667 mls/hr IVPB Q24H [facility] PRN Reason: Protocol Last Admin: 02/27/17 17:37 Dose: 166.667 mls/hr Famotidine/Sodium Chloride (Pepcid 20 Mg Premixed Ivpb -) 50 mls @ 100 mls/hr IVPB DAILY@0600 [facility] Last Admin: 02/28/17 05:37 Dose: 100 mls/hr Piperacillin Sod/Tazobactam Sod (Zosyn 3.375gm Ivpb (Pre-Docked)) 50 mls @ 100 mls/hr IVPB Q8H-IV [facility] PRN Reason: Protocol Last Admin: 02/28/17 09:15 Dose: 100 mls/hr Dextrose/Sodium Chloride (D5-1/3ns -) 500 mls @ 100 mls/hr IV ASDIR [facility] Last Admin: 02/28/17 12:33 Dose: 100 mls/hr ASSESSMENT AND PLAN: Altered Mental Status Acute Respiratory Failure r/o Drug Overdose r/o Anoxic Encephalopathy Acute Kidney Injury Lupus Hypernatremia - repeat CT head noncontrast - low suspicion but lumbar puncture to r/o meningitis/encephalitis - hold all sedation to assess mental status - on empiric antibiotics - IVF - free water replacement - monitor urine output, creatinine - send GONSALO - EEG - continue volume assist control - not a candidate for weaning at this time - enteral feeds - DVT/GI prophylaxis - continue ICU monitoring critical care time spent in reviewing chart, evaluating patient and formulating plan 40 min
[2017-02-28 13:18] LABS: FREE T4 0.87 ng/dl (0.76-1.46)
--- NOTE | 2017-02-28 13:20 | PN ---
Physical Exam: SUBJECTIVE: Patient seen and examined. patient was intubated. has no response to painful stimuli. pupils are b/l equal and reactive. cough reflex was present. andrea had multiple pressure ulcers. Talked to her health care proxy who states that she was a good friend of her mother and her mother 10-12 years ago from cancer and her mother made her health care proxy. She also reports that patient is unmarried and have no kids. She also reports that patient was adopted by her mother. OBJECTIVE: Vital Signs Period Temp Pulse Resp BP Sys/Pena Pulse Ox Last 24 Hr 98.4 F-99.1 F 89-103 16-22 96-126/69-86 100-100 GENERAL: intubated. not on sedation EYES: PERRL, ENT: Ears normal, nares patent, NECK: Trachea midline, full range of motion, supple. LUNGS: Breath sounds equal, clear to auscultation bilaterally, HEART: s1s2 normal, regular. ABDOMEN: Soft, nontender, nondistended, normoactive bowel sounds, EXTREMITIES: , warm, no edema. mulitple pressure ulcers NEUROLOGICAL: unaccessible PSYCH: Normal mood, normal affect. Laboratory Results - last 24 hr 02/28/17 02/28/17 02/28/17 05:15 05:15 05:15 WBC 14.6 H RBC 4.66 Hgb 10.7 D Hct 33.9 MCV 72.8 L MCH 22.9 L MCHC 31.5 L RDW 22.4 H Plt Count 197 MPV 12.4 H D Neutrophils % 83.0 H Lymphocytes % 5.2 L Monocytes % 10.1 Eosinophils % 1.4 D Basophils % 0.3 ESR PT with INR INR Puncture Site ABG pH ABG pCO2 at Pt Temp ABG pO2 at Pt Temp ABG HCO3 ABG O2 Sat (Measured) ABG O2 Content ABG Base Excess Roney Test O2 Delivery Device Oxygen Flow Rate Vent Mode Vent Rate Mechanical Rate PEEP Pressure Support Vent Sodium 157 H Potassium 4.3 Chloride 124 H Carbon Dioxide 26 Anion Gap 7 L BUN 38 H D Creatinine 1.2 H Creat Clearance w eGFR 48.58 Random Glucose 166 H Calcium 8.0 L Total Bilirubin 0.5 AST 81 H D ALT 44 D Alkaline Phosphatase 76 Total Protein 5.9 L Albumin 3.0 L TSH 1.91 Free T4 Cancelled 02/28/17 02/28/17 02/28/17 07:35 10:57 10:57 WBC RBC Hgb Hct MCV MCH MCHC RDW Plt Count MPV Neutrophils % Lymphocytes % Monocytes % Eosinophils % Basophils % ESR 39 H PT with INR 17.90 H INR 1.61 H Puncture Site Right radial ABG pH 7.43 ABG pCO2 at Pt Temp 38.6 ABG pO2 at Pt Temp 117.0 H D ABG HCO3 25.2 ABG O2 Sat (Measured) 98.6 ABG O2 Content 14.2 L ABG Base Excess 1.4 Roney Test Positive O2 Delivery Device Vent Oxygen Flow Rate 40% Vent Mode A/c Vent Rate 16 Mechanical Rate Yes PEEP 5.0 Pressure Support Vent 400 Sodium Potassium Chloride Carbon Dioxide Anion Gap BUN Creatinine Creat Clearance w eGFR Random Glucose Calcium Total Bilirubin AST ALT Alkaline Phosphatase Total Protein Albumin TSH Free T4 Active Medications Generic Name Dose Route Start Last Admin Trade Name Freq PRN Reason Stop Dose Admin Albuterol/Ipratropium 1 amp 02/28/17 14:00 Duoneb - NEB TIDR [facility] Bacitracin 1 applic 02/28/17 10:00 02/28/17 12:35 Bacitracin - TP 1 applic BID [facility] Administration Chlorhexidine Gluconate 15 ml 02/28/17 10:00 Peridex - MM BID [facility] Heparin Sodium (Porcine) 5,000 unit 02/26/17 22:00 02/28/17 05:38 Heparin - SQ 5,000 unit TID [facility] Administration Vancomycin HCl 1,250 mg/ 250 mls @ 166.667 mls/hr 02/26/17 18:00 02/27/17 17:37 Dextrose IVPB 166.667 mls/hr Q24H [facility] Administration Protocol Famotidine/Sodium Chloride 50 mls @ 100 mls/hr 02/27/17 06:00 02/28/17 05:37 Pepcid 20 Mg Premixed Ivpb - IVPB 100 mls/hr DAILY@0600 [facility] Administration Piperacillin Sod/Tazobactam Sod 50 mls @ 100 mls/hr 02/27/17 09:03 02/28/17 09: 15 Zosyn 3.375gm Ivpb (Pre-Docked) IVPB 100 mls/hr Q8H-IV [facility] Administration Protocol Dextrose/Sodium Chloride 500 mls @ 100 mls/hr 02/27/17 10:45 02/28/17 12:33 D5-1/3ns - IV 100 mls/hr ASDIR [facility] Administration ASSESSMENT/PLAN: Altered Mental Status Acute Respiratory Failure r/o Drug Overdose r/o Anoxic Encephalopathy Acute Kidney Injury Lupus Hypernatremia Plan AMs could be due to drugs/ meningiis/ encephalitis( low suspicion for meningitis and encephalitis). will do the LP once INR is below 1.5, will give her Vitamin k Po Repeat Ct head to r/o anoxic brain injury. follow esr and skylar, rheumatology consult if SLE has cerebral involvement. Hold all sedations. continue with empiric antibiotics Get EEG Change position after every 2 hour. keep head end elevated. start her on tube diet. For hypernatremia check sr na q4-6h, continue with D5w and give free water from NG tube. Monitor vitals, monitor intake and output. Xander improving with fluids, probably prerenal. monitor renal function DVT prophylaxis with heparin. Continue with ventilator support. Keep spo2 90 Take aspiration precautions Visit type - Emergency Visit Emergency Visit: Yes ED Registration Date: 02/26/17 Care time: The patient presented to the Emergency Department on the above date and was hospitalized for further evaluation of their emergent condition. - New Patient This patient is new to me today: Yes Date on this admission: 02/28/17 - Critical Care Critical Care patient: Yes Total Critical Care Time (in minutes): 60 Critical Care Statement: The care of this patient involved high complexity decision making to prevent further life threatening deterioration of the patient 's condition and/or to evaluate & treat vital organ system(s) failure or risk of failure.
[2017-02-28] MEDS: ALBUTEROL SO4 2.5/IPRATROPIUM 0.5 INH SOL 3 ML VIAL.NEB. NEB SCH ×2 (14:00→22:30)
[2017-02-28] MEDS ORDERED: PHYTONADIONE 5 MG TABLET PO ONE ×2 (14:00→17:45)
--- NOTE | 2017-02-28 17:33 | PN ---
Progress Note, Physician History of Present Illness: continues to be intubated patient still with no response neurologically no change - Current Medication List Current Medications: Active Medications Albuterol/Ipratropium (Duoneb -) 1 amp NEB TIDR [facility] Last Admin: 02/28/17 14:00 Dose: 1 amp Bacitracin (Bacitracin -) 1 applic TP BID [facility] Last Admin: 02/28/17 12:35 Dose: 1 applic Chlorhexidine Gluconate (Peridex -) 15 ml MM BID [facility] Heparin Sodium (Porcine) (Heparin -) 5,000 unit SQ TID [facility] Last Admin: 02/28/17 05:38 Dose: 5,000 unit Vancomycin HCl 1,250 mg/ (Dextrose) 250 mls @ 166.667 mls/hr IVPB Q24H [facility] PRN Reason: Protocol Last Admin: 02/27/17 17:37 Dose: 166.667 mls/hr Famotidine/Sodium Chloride (Pepcid 20 Mg Premixed Ivpb -) 50 mls @ 100 mls/hr IVPB DAILY@0600 [facility] Last Admin: 02/28/17 05:37 Dose: 100 mls/hr Piperacillin Sod/Tazobactam Sod (Zosyn 3.375gm Ivpb (Pre-Docked)) 50 mls @ 100 mls/hr IVPB Q8H-IV [facility] PRN Reason: Protocol Last Admin: 02/28/17 09:15 Dose: 100 mls/hr Dextrose/Sodium Chloride (D5-1/3ns -) 500 mls @ 100 mls/hr IV ASDIR [facility] Last Admin: 02/28/17 12:33 Dose: 100 mls/hr - Objective Vital Signs: Vital Signs Temperature 99 F 02/28/17 16:00 Pulse Rate 97 H 02/28/17 16:00 Respiratory Rate 18 02/28/17 16:00 Blood Pressure 125/87 02/28/17 16:00 O2 Sat by Pulse Oximetry (%) 100 02/28/17 08:15 Constitutional: Yes: Other HENT: Yes: Atraumatic, Normocephalic Cardiovascular: Yes: Regular Rate and Rhythm Respiratory: Yes: Mechanically Ventilated Gastrointestinal: Yes: Normal Bowel Sounds, Soft Musculoskeletal: Yes: WNL Extremities: Yes: WNL Neurological: Yes: Other Psychiatric: Yes: Other Labs: CBC, BMP 02/28/17 05:15 02/28/17 05:15 INR, PTT INR 1.61 (0.82-1.09) H 02/28/17 10:57 Assessment/Plan Problem List - Problems (1) Overdose Code(s): T50.901A - POISONING BY UNSP DRUG/MEDS/BIOL SUBST, ACCIDENTAL, INIT Qualifiers: Encounter type: initial encounter Injury intent: undetermined intent Qualified Code(s): T50.904A - Poisoning by unspecified drugs, medicaments and biological substances, undetermined, initial encounter (2) Polypharmacy Code(s): Z79.899 - OTHER DIRECTOR OF DIGITAL PLATFORMS (CURRENT) DRUG THERAPY (3) Unresponsive Code(s): R41.89 - OTH SYMPTOMS AND SIGNS W COGNITIVE FUNCTIONS AND AWARENESS (4) TRENT (acute kidney injury) Code(s): N17.9 - ACUTE KIDNEY FAILURE, UNSPECIFIED (5) Rhabdomyolysis Code(s): M62.82 - RHABDOMYOLYSIS (6) Respiratory failure Code(s): J96.90 - RESPIRATORY FAILURE, UNSP, UNSP W HYPOXIA OR HYPERCAPNIA asp pna leukocytosis uti wbc still on the higher side patient also has uti plan abx to continue wbc continues to decrease patient still continues not to respond continue as per icu cc time 40 min
[2017-02-28] MEDS ORDERED: PT OWN MED DRAWER 7, Y5N ONE ×2 (17:46→18:28)
[2017-02-28] MEDS: VANCOMYCIN 1,250 MG in DEXTROSE 5%-WATER - 250 ML IVPB SCH (18:29)
[2017-02-28 18:47] LABS: ANION GAP 7 (8-16); CALCIUM 7.5 mg/dL (8.5-10.1); CO2 28 mmol/L (21-32)
--- NOTE | 2017-02-28 18:54 | PN ---
Progress Note, Physician History of Present Illness: intubated - Current Medication List Current Medications: Active Medications Albuterol/Ipratropium (Duoneb -) 1 amp NEB TIDR [facility] Last Admin: 02/28/17 14:00 Dose: 1 amp Bacitracin (Bacitracin -) 1 applic TP BID [facility] Last Admin: 02/28/17 12:35 Dose: 1 applic Chlorhexidine Gluconate (Peridex -) 15 ml MM BID [facility] Last Admin: 02/28/17 11:29 Dose: 15 ml Heparin Sodium (Porcine) (Heparin -) 5,000 unit SQ TID [facility] Last Admin: 02/28/17 17:35 Dose: Not Given Vancomycin HCl 1,250 mg/ (Dextrose) 250 mls @ 166.667 mls/hr IVPB Q24H [facility] PRN Reason: Protocol Last Admin: 02/28/17 18:29 Dose: 166.667 mls/hr Famotidine/Sodium Chloride (Pepcid 20 Mg Premixed Ivpb -) 50 mls @ 100 mls/hr IVPB DAILY@0600 [facility] Last Admin: 02/28/17 05:37 Dose: 100 mls/hr Piperacillin Sod/Tazobactam Sod (Zosyn 3.375gm Ivpb (Pre-Docked)) 50 mls @ 100 mls/hr IVPB Q8H-IV [facility] PRN Reason: Protocol Last Admin: 02/28/17 17:42 Dose: 100 mls/hr Dextrose/Sodium Chloride (D5-1/3ns -) 500 mls @ 100 mls/hr IV ASDIR [facility] Last Admin: 02/28/17 12:33 Dose: 100 mls/hr - Objective Vital Signs: Vital Signs Temperature 99 F 02/28/17 16:00 Pulse Rate 97 H 02/28/17 16:00 Respiratory Rate 17 02/28/17 18:00 Blood Pressure 125/87 02/28/17 16:00 O2 Sat by Pulse Oximetry (%) 100 02/28/17 08:15 Constitutional: Yes: No Distress HENT: Yes: Atraumatic Neck: Yes: Supple Cardiovascular: Yes: Regular Rate and Rhythm Respiratory: Yes: CTA Bilaterally Gastrointestinal: Yes: Normal Bowel Sounds Extremities: Yes: WNL Labs: CBC, BMP 02/28/17 05:15 02/28/17 17:45 INR, PTT INR 1.61 (0.82-1.09) H 02/28/17 10:57 Problem List - Problems (1) TRENT (acute kidney injury) Assessment/Plan: on iv hydration CR WNL TODAY Code(s): N17.9 - ACUTE KIDNEY FAILURE, UNSPECIFIED (2) Anoxic brain injury Assessment/Plan: neuro checks no change in status Code(s): G93.1 - ANOXIC BRAIN DAMAGE, NOT ELSEWHERE CLASSIFIED (3) Coma Assessment/Plan: intubated as per rn opened her eyes today Code(s): R40.20 - UNSPECIFIED COMA Qualifiers: Coma depth: Rossy coma 3-8 Coma timing: at arrival to emergency department Qualified Code(s): R40.2432 - Ozone coma scale score 3-8, at arrival to emergency department (4) Overdose Assessment/Plan: check levels reportedly pt is on pain meds per merchandising representative Code(s): T50.901A - POISONING BY UNSP DRUG/MEDS/BIOL SUBST, ACCIDENTAL, INIT Qualifiers: Encounter type: initial encounter Injury intent: undetermined intent Qualified Code(s): T50.904A - Poisoning by unspecified drugs, medicaments and biological substances, undetermined, initial encounter (5) Polypharmacy Code(s): Z79.899 - OTHER COPY SUPERVISOR (CURRENT) DRUG THERAPY (6) Respiratory failure Assessment/Plan: intubated sedated Code(s): J96.90 - RESPIRATORY FAILURE, UNSP, UNSP W HYPOXIA OR HYPERCAPNIA Qualifiers: Chronicity: acute (7) Rhabdomyolysis Assessment/Plan: ivf will check cpk Code(s): M62.82 - RHABDOMYOLYSIS (8) Unresponsive Code(s): R41.89 - OTH SYMPTOMS AND SIGNS W COGNITIVE FUNCTIONS AND AWARENESS Assessment/Plan cc time 35 min
[2017-02-28 19:07] LABS: GLUCOSE,RANDOM 168 mg/dL (74-106)
--- NOTE | 2017-02-28 20:56 | HOSP ---
Subjective - Review of Symptoms Events since last encounter: Brother at bedside this evening. Per brother, nursing -> patient responding to name and opening eyes. MD unable to elicit response at bedside however. U tox ordered for morning, given recent TRENT and suspected decreased renal clearance and/or rhabdo Physical Examination Vital Signs: Vital Signs Temperature 99.2 F 02/28/17 19:21 Pulse Rate 98 H 02/28/17 19:21 Respiratory Rate 18 02/28/17 20:00 Blood Pressure 122/85 02/28/17 19:21 O2 Sat by Pulse Oximetry (%) 98 02/28/17 20:00 Labs: CBC, BMP 02/28/17 05:15 02/28/17 17:45 Visit type - Emergency Visit Emergency Visit: No - New Patient This patient is new to me today: No - Critical Care Critical Care patient: Yes Total Critical Care Time (in minutes): 10
[2017-03-01] MEDS: PIPERACILLIN/TAZOB 3.375 GM 50 ML IVPB SCH ×3 (02:54→17:31)
[2017-03-01] MEDS: FAMOTIDINE 20 MG/50 ML IVPB 50 ML IVPB SCH (05:35)
[2017-03-01 06:24] LABS: BASOPHIL 0.1 % (0-2.0); EOSINOPHIL 1.8 % (0-4.5); MCH 23.1 pg (25.7-33.7); MCHC 31.3 g/dl (32.0-36.0); MEAN CELL VOLUME 73.8 fl (80-96); MEAN PLT VOLUME 12.3 fl (7.5-11.1); NEUTROPHILS 86.1 % (42.8-82.8); PLATELET COUNT 172 K/MM3 (134-434); RDW 22.9 % (11.6-15.6); WHITE BLOOD COUNT 16.2 K/mm3 (4.0-10.0)
[2017-03-01 06:56] LABS: ALBUMIN 2.7 g/dl (3.4-5.0); ALK PHOS 79 U/L (45-117); ANION GAP 8 (8-16); BILIRUBIN,TOTAL 0.4 mg/dL (0.2-1.0); CALCIUM 7.8 mg/dL (8.5-10.1); CO2 26 mmol/L (21-32); CREATININE 0.9 mg/dL (0.55-1.02); GLUCOSE,RANDOM 182 mg/dL (74-106); MAGNESIUM 3.1 mg/dL (1.8-2.4); PHOSPHOROUS 2.5 mg/dL (2.5-4.9); SGOT/AST 70 U/L (15-37); SGPT/ALT 39 U/L (12-78); TOT PROT 5.3 g/dl (6.4-8.2)
[2017-03-01 06:58] LABS: ANISOCYTOSIS 2+; PLATELET ESTIMATE ADEQUATE (NORMAL)
[2017-03-01] MEDS: ALBUTEROL SO4 2.5/IPRATROPIUM 0.5 INH SOL 3 ML VIAL.NEB. NEB SCH ×3 (07:05→21:53)
[2017-03-01 07:10] LABS: ARTERIAL BLD GAS O2 SATURATION 99.4 % (90-98.9); ARTERIAL BLOOD GAS BASE EXCESS 0.2 meq/l (-2-2); ARTERIAL BLOOD GAS HCO3 23.8 meq/L (22-26); ARTERIAL BLOOD GAS pH 7.43 (7.35-7.45)
[2017-03-01 07:11] LABS: ALLENS TEST POSITIVE; ART PUNCT SITE LEFT RADIAL; LPM/O2% 40%; MECH. VENT. YES; PT. ON O2? YES; TYPE OF O2 MECH VENT; VT/PRESS 400
[2017-03-01 07:12] LABS: VENT RATE 16
--- NOTE | 2017-03-01 07:41 | PN ---
Physical Exam: SUBJECTIVE: Patient seen and examined. OBJECTIVE: Vital Signs Period Temp Pulse Resp BP Sys/Pena Pulse Ox Last 24 Hr 98.7 F-99.5 F 89-100 16-22 109-132/69-92 98-100 GENERAL: intubated. not on sedation EYES: PERRL, ENT: Ears normal, nares patent, NECK: Trachea midline, full range of motion, supple. LUNGS: Breath sounds equal, clear to auscultation bilaterally, HEART: s1s2 normal, regular. ABDOMEN: Soft, nontender, nondistended, normoactive bowel sounds, EXTREMITIES: , warm, no edema. mulitple pressure ulcers NEUROLOGICAL: unaccessible PSYCH: Normal mood, normal affect. Laboratory Results - last 24 hr 02/28/17 02/28/17 02/28/17 05:15 05:15 05:15 WBC RBC Hgb Hct MCV MCH MCHC RDW Plt Count MPV Neutrophils % Lymphocytes % Monocytes % Eosinophils % Basophils % Platelet Estimate Platelet Comment Anisocytosis ESR PT with INR INR Puncture Site ABG pH ABG pCO2 at Pt Temp ABG pO2 at Pt Temp ABG HCO3 ABG O2 Sat (Measured) ABG O2 Content ABG Base Excess Roney Test O2 Delivery Device Oxygen Flow Rate Vent Mode Vent Rate Mechanical Rate PEEP Pressure Support Vent Sodium 157 H Potassium 4.3 Chloride 124 H Carbon Dioxide 26 Anion Gap 7 L BUN 38 H D Creatinine 1.2 H Creat Clearance w eGFR 48.58 Random Glucose 166 H Calcium 8.0 L Phosphorus Magnesium Total Bilirubin 0.5 AST 81 H D ALT 44 D Alkaline Phosphatase 76 Total Protein 5.9 L Albumin 3.0 L TSH 1.91 Free T4 0.87 Cancelled Free T3 1.9 L Cortisol AM Sample 02/28/17 02/28/17 02/28/17 05:15 07:35 10:57 WBC RBC Hgb Hct MCV MCH MCHC RDW Plt Count MPV Neutrophils % Lymphocytes % Monocytes % Eosinophils % Basophils % Platelet Estimate Platelet Comment Anisocytosis ESR 39 H PT with INR INR Puncture Site Right radial ABG pH 7.43 ABG pCO2 at Pt Temp 38.6 ABG pO2 at Pt Temp 117.0 H D ABG HCO3 25.2 ABG O2 Sat (Measured) 98.6 ABG O2 Content 14.2 L ABG Base Excess 1.4 Roney Test Positive O2 Delivery Device Vent Oxygen Flow Rate 40% Vent Mode A/c Vent Rate 16 Mechanical Rate Yes PEEP 5.0 Pressure Support Vent 400 Sodium Potassium Chloride Carbon Dioxide Anion Gap BUN Creatinine Creat Clearance w eGFR Random Glucose Calcium Phosphorus Magnesium Total Bilirubin AST ALT Alkaline Phosphatase Total Protein Albumin TSH Free T4 Free T3 Cortisol AM Sample 28.3 02/28/17 02/28/17 03/01/17 10:57 17:45 05:10 WBC 16.2 H RBC 4.16 Hgb 9.6 L D Hct 30.7 L MCV 73.8 L MCH 23.1 L MCHC 31.3 L RDW 22.9 H Plt Count 172 MPV 12.3 H Neutrophils % 86.1 H Lymphocytes % 4.9 L Monocytes % 7.1 Eosinophils % 1.8 Basophils % 0.1 Platelet Estimate Adequate Platelet Comment Few large plts Anisocytosis 2+ ESR PT with INR 17.90 H INR 1.61 H Puncture Site ABG pH ABG pCO2 at Pt Temp ABG pO2 at Pt Temp ABG HCO3 ABG O2 Sat (Measured) ABG O2 Content ABG Base Excess Roney Test O2 Delivery Device Oxygen Flow Rate Vent Mode Vent Rate Mechanical Rate PEEP Pressure Support Vent Sodium 155 H Potassium 3.9 Chloride 120 H Carbon Dioxide 28 Anion Gap 7 L BUN 28 H D Creatinine 1.0 Creat Clearance w eGFR Random Glucose 168 H Calcium 7.5 L Phosphorus Magnesium Total Bilirubin AST ALT Alkaline Phosphatase Total Protein Albumin TSH Free T4 Free T3 Cortisol AM Sample 03/01/17 03/01/17 05:10 07:09 WBC RBC Hgb Hct MCV MCH MCHC RDW Plt Count MPV Neutrophils % Lymphocytes % Monocytes % Eosinophils % Basophils % Platelet Estimate Platelet Comment Anisocytosis ESR PT with INR INR Puncture Site Left radial ABG pH 7.43 ABG pCO2 at Pt Temp 36.7 ABG pO2 at Pt Temp 170.0 H* ABG HCO3 23.8 ABG O2 Sat (Measured) 99.4 H ABG O2 Content 13.8 L ABG Base Excess 0.2 Roney Test Positive O2 Delivery Device Mech vent Oxygen Flow Rate 40% Vent Mode A/c Vent Rate 16 Mechanical Rate Yes PEEP 5.0 Pressure Support Vent 400 Sodium 153 H Potassium 3.5 Chloride 119 H Carbon Dioxide 26 Anion Gap 8 BUN 24 H Creatinine 0.9 Creat Clearance w eGFR > 60 Random Glucose 182 H Calcium 7.8 L Phosphorus 2.5 Magnesium 3.1 H Total Bilirubin 0.4 AST 70 H ALT 39 Alkaline Phosphatase 79 Total Protein 5.3 L Albumin 2.7 L TSH Free T4 Free T3 Cortisol AM Sample Active Medications Generic Name Dose Route Start Last Admin Trade Name Rajwinder PRN Reason Stop Dose Admin Albuterol/Ipratropium 1 amp 02/28/17 14:00 03/01/17 07:05 Duoneb - NEB 1 amp TIDR MOI Administration Bacitracin 1 applic 02/28/17 10:00 02/28/17 22:37 Bacitracin - TP 1 applic BID MOI Administration Chlorhexidine Gluconate 15 ml 02/28/17 10:00 02/28/17 22:37 Peridex - MM 15 ml BID MOI Administration Heparin Sodium (Porcine) 5,000 unit 02/26/17 22:00 02/28/17 22:37 Heparin - SQ 5,000 unit TID MOI Administration Vancomycin HCl 1,250 mg/ 250 mls @ 166.667 mls/hr 02/26/17 18:00 02/28/17 18:29 Dextrose IVPB 166.667 mls/hr Q24H MOI Administration Protocol Famotidine/Sodium Chloride 50 mls @ 100 mls/hr 02/27/17 06:00 03/01/17 05:35 Pepcid 20 Mg Premixed Ivpb - IVPB 100 mls/hr DAILY@0600 MOI Administration Piperacillin Sod/Tazobactam Sod 50 mls @ 100 mls/hr 02/27/17 09:03 03/01/17 02: 54 Zosyn 3.375gm Ivpb (Pre-Docked) IVPB 100 mls/hr Q8H-IV [facility]I Administration Protocol Dextrose/Sodium Chloride 500 mls @ 100 mls/hr 02/27/17 10:45 02/28/17 12:33 D5-1/3ns - IV 100 mls/hr ASDIR MOI Administration ASSESSMENT/PLAN: Plan AMS - Drug Overdose vs Anoxic Encephalopathy vs seizure disorder vs meningitis vs encephalitis - Hold LP for now as mental status is improving and I have a very low suspicion of meningitis/encephalitis - hold all sedation to assess mental status - Consider AC setting for ventilation - follow GONSALO, rheumatology consult if SLE has cerebral involvement. - EEG if possible Acute Kidney Injury - Hypernatremia - free water replacement - monitor urine output, creatinine ID - If Infectious Disease consultants agree, d/c antibiotics as there's no apparent infection - SBTs - enteral feeds - DVT/GI prophylaxis PCP: Chato Canela [phone] Visit type - Emergency Visit Emergency Visit: No - New Patient This patient is new to me today: No - Critical Care Critical Care patient: Yes Total Critical Care Time (in minutes): 30 Critical Care Statement: The care of this patient involved high complexity decision making to prevent further life threatening deterioration of the patient 's condition and/or to evaluate & treat vital organ system(s) failure or risk of failure.
[2017-03-01] MEDS: DEXTROSE 5%-1/3 NS - 500 ML IV SCH ×2 (07:57→13:37)
--- NOTE | 2017-03-01 09:06 | PN ---
Progress Note, Physician History of Present Illness: Intubated on mechanical ventilation, no spontaneous movements. Poorly responsive. - Current Medication List Current Medications: Active Medications Albuterol/Ipratropium (Duoneb -) 1 amp NEB TIDR [facility] Last Admin: 03/01/17 07:05 Dose: 1 amp Bacitracin (Bacitracin -) 1 applic TP BID [facility] Last Admin: 02/28/17 22:37 Dose: 1 applic Chlorhexidine Gluconate (Peridex -) 15 ml MM BID [facility] Last Admin: 02/28/17 22:37 Dose: 15 ml Heparin Sodium (Porcine) (Heparin -) 5,000 unit SQ TID [facility] Last Admin: 02/28/17 22:37 Dose: 5,000 unit Vancomycin HCl 1,250 mg/ (Dextrose) 250 mls @ 166.667 mls/hr IVPB Q24H [facility] PRN Reason: Protocol Last Admin: 02/28/17 18:29 Dose: 166.667 mls/hr Famotidine/Sodium Chloride (Pepcid 20 Mg Premixed Ivpb -) 50 mls @ 100 mls/hr IVPB DAILY@0600 [facility] Last Admin: 03/01/17 05:35 Dose: 100 mls/hr Piperacillin Sod/Tazobactam Sod (Zosyn 3.375gm Ivpb (Pre-Docked)) 50 mls @ 100 mls/hr IVPB Q8H-IV [facility] PRN Reason: Protocol Last Admin: 03/01/17 02:54 Dose: 100 mls/hr Dextrose/Sodium Chloride (D5-1/3ns -) 500 mls @ 100 mls/hr IV ASDIR [facility] Last Admin: 03/01/17 07:57 Dose: 100 mls/hr - Objective Vital Signs: Vital Signs Temperature 99.4 F 03/01/17 02:00 Pulse Rate 106 H 03/01/17 08:00 Respiratory Rate 21 03/01/17 08:00 Blood Pressure 137/82 03/01/17 08:00 O2 Sat by Pulse Oximetry (%) 98 02/28/17 20:00 Cardiovascular: Yes: Regular Rate and Rhythm, Tachycardia Respiratory: Yes: Intubated, Mechanically Ventilated, Rhonchi Gastrointestinal: Yes: Normal Bowel Sounds, Soft Edema: No Labs: CBC, BMP 03/01/17 05:10 03/01/17 05:10 INR, PTT INR 1.61 (0.82-1.09) H 02/28/17 10:57 - ....Imaging Chest X-ray: Image Reviewed EKG: Report Reviewed (Tele: ST) Problem List - Problems (1) Overdose Code(s): T50.901A - POISONING BY UNSP DRUG/MEDS/BIOL SUBST, ACCIDENTAL, INIT Qualifiers: Encounter type: initial encounter Injury intent: undetermined intent Qualified Code(s): T50.904A - Poisoning by unspecified drugs, medicaments and biological substances, undetermined, initial encounter (2) Respiratory failure Code(s): J96.90 - RESPIRATORY FAILURE, UNSP, UNSP W HYPOXIA OR HYPERCAPNIA Qualifiers: Chronicity: acute (3) Unresponsive Code(s): R41.89 - OTH SYMPTOMS AND SIGNS W COGNITIVE FUNCTIONS AND AWARENESS (4) Leukocytosis Code(s): D72.829 - ELEVATED WHITE BLOOD CELL COUNT, UNSPECIFIED Qualifiers: Leukocytosis type: unspecified Qualified Code(s): D72.829 - Elevated white blood cell count, unspecified (5) Aspiration pneumonia Code(s): J69.0 - PNEUMONITIS DUE TO INHALATION OF FOOD AND VOMIT Qualifiers: Aspiration pneumonia type: due to vomit Lung location: unspecified part of lung (6) TRENT (acute kidney injury) Code(s): N17.9 - ACUTE KIDNEY FAILURE, UNSPECIFIED (7) Hypernatremia Code(s): E87.0 - HYPEROSMOLALITY AND HYPERNATREMIA (8) Lupus (systemic lupus erythematosus) Code(s): M32.9 - SYSTEMIC LUPUS ERYTHEMATOSUS, UNSPECIFIED (9) Anemia Code(s): D64.9 - ANEMIA, UNSPECIFIED Qualifiers: Anemia type: unspecified type Qualified Code(s): D64.9 - Anemia, unspecified Assessment/Plan 1. Unresponsiveness, toxic metabolic encephalopathy, suspect drug overdose ( UTox positive for benzo, barbiturates, and opiods), r/o anoxic encephelopathy 2. Leukocytosis, sepsis syndrome, consider asp PNA, UTI 3. History of Lupus 4. 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 Hyperglycemia 6. Hypernatremia 7. Sinus tachycardia, reactionary to above PLAN: 1. IVF and free water repletion 2. Empiric antibiotics course per ID 3. Ventilator management as per the critical care team, BD 4. No therapy indicated for the above noted sinus tachycardia 5. Echocardiography results reviewed 6. DVT and GI prophylaxis, enteral feeds 7. Brain MRI when ready, hold sedation and monitor neurologic status, EEG
[2017-03-01 09:24] LABS: INR 1.2 (0.82-1.09); PROTHROMBIN TIME (PATIENT) 13.2 SEC (9.98-11.88)
[2017-03-01] MEDS: CHLORHEXIDINE GLUCONATE 0.12% 15ML CUP MM SCH ×2 (09:47→22:55)
--- NOTE | 2017-03-01 11:01 | PN ---
Progress Note (short form) - Note Progress Note: Neurology History of Present Illness 46 year old female presented to ER completely unresponsive, Rossy coma scale of 3, who was "found down" possibly for several days and last known well two days ago. Found in her own urine and feces without explanation of why. Concern for airway protection and ER intubated and put on mechanical ventilation in the ER. CT head completed and did not show acute changes. UTox positive for benzo, barbiturates, and opiods. Also with WBC of 18. Concern for drug overdose, in ICU in close monitoring, intubated and mechanical ventilation, no spontaneous movements. Is blinking to threat and does have pupil response. She did close her eyes for nurse this morning but no other significant activity. Ct head completed and did not show signs of anoxic brain injury, MRI would be ideal but not feasible with vent. Overbreathing vent slightly. Active Medications Albuterol/Ipratropium (Duoneb -) 1 amp NEB TIDR [facility] Last Admin: 03/01/17 07:05 Dose: 1 amp Bacitracin (Bacitracin -) 1 applic TP BID [facility] Last Admin: 02/28/17 22:37 Dose: 1 applic Chlorhexidine Gluconate (Peridex -) 15 ml MM BID [facility] Last Admin: 03/01/17 09:47 Dose: 15 ml Heparin Sodium (Porcine) (Heparin -) 5,000 unit SQ TID [facility] Last Admin: 02/28/17 22:37 Dose: 5,000 unit Vancomycin HCl 1,250 mg/ (Dextrose) 250 mls @ 166.667 mls/hr IVPB Q24H [facility] PRN Reason: Protocol Last Admin: 02/28/17 18:29 Dose: 166.667 mls/hr Famotidine/Sodium Chloride (Pepcid 20 Mg Premixed Ivpb -) 50 mls @ 100 mls/hr IVPB DAILY@0600 [facility] Last Admin: 03/01/17 05:35 Dose: 100 mls/hr Piperacillin Sod/Tazobactam Sod (Zosyn 3.375gm Ivpb (Pre-Docked)) 50 mls @ 100 mls/hr IVPB Q8H-IV [facility] PRN Reason: Protocol Last Admin: 03/01/17 09:46 Dose: 100 mls/hr Dextrose/Sodium Chloride (D5-1/3ns -) 500 mls @ 100 mls/hr IV ASDIR [facility] Last Admin: 03/01/17 07:57 Dose: 100 mls/hr *Physical Exam Vital Signs Period Temp Pulse Resp BP Sys/Pena Pulse Ox Last 24 Hr 98.6 F-99.5 F 92-106 16-22 109-137/69-92 98-98 Comatose, not following commands, intubated, on mechanical ventilation Disheveled with malodorous scent Minimal response to nailbed pressure Not tracking Pupil responsive but sluggish Lungs sounds mechanical RRR Abdomen soft CBCD WBC 16.2 K/mm3 (4.0-10.0) H 03/01/17 05:10 RBC 4.16 M/mm3 (3.60-5.2) 03/01/17 05:10 Hgb 9.6 GM/dL (10.7-15.3) L D 03/01/17 05:10 Hct 30.7 % (32.4-45.2) L 03/01/17 05:10 MCV 73.8 fl (80-96) L 03/01/17 05:10 MCHC 31.3 g/dl (32.0-36.0) L 03/01/17 05:10 RDW 22.9 % (11.6-15.6) H 03/01/17 05:10 Plt Count 172 K/MM3 (134-434) 03/01/17 05:10 MPV 12.3 fl (7.5-11.1) H 03/01/17 05:10 CMP Sodium 153 mmol/L (136-145) H 03/01/17 05:10 Potassium 3.5 mmol/L (3.5-5.1) 03/01/17 05:10 Chloride 119 mmol/L (98-107) H 03/01/17 05:10 Carbon Dioxide 26 mmol/L (21-32) 03/01/17 05:10 Anion Gap 8 (8-16) 03/01/17 05:10 BUN 24 mg/dL (7-18) H 03/01/17 05:10 Creatinine 0.9 mg/dL (0.55-1.02) 03/01/17 05:10 Creat Clearance w eGFR > 60 (>60) 03/01/17 05:10 Calcium 7.8 mg/dL (8.5-10.1) L 03/01/17 05:10 Total Bilirubin 0.4 mg/dL (0.2-1.0) 03/01/17 05:10 AST 70 U/L (15-37) H 03/01/17 05:10 ALT 39 U/L (12-78) 03/01/17 05:10 Alkaline Phosphatase 79 U/L (45-117) 03/01/17 05:10 Total Protein 5.3 g/dl (6.4-8.2) L 03/01/17 05:10 Albumin 2.7 g/dl (3.4-5.0) L 03/01/17 05:10 CT head reviewed Plan: 46 year old female presented to ER completely unresponsive, Wright coma scale of 3, who was "found down" possibly for several days and last known well two days ago. Found in her own urine and feces without explanation of why. Concern for airway protection and ER intubated and put on mechanical ventilation, under close observation in the ICU. CT head completed and did not show acute changes. Repeat CT head without acute changes, did not have signs of anoxic brain injury UTox positive for benzo, barbiturates, and opiods. Concern for drug overdose MRI brain when able Hydration as needed Continue mechanical ventilation, wean as able ID consulted and following, on Zosyn No evidence of seizures Close monitoring in ICU Total Critical Care Time (minutes): 40
[2017-03-01 11:11] LABS: URINE MARIJUANA THC NEGATIVE ng/ml (CUTOFF=50)
[2017-03-01] MEDS: BACITRACIN 15 GM TUBE TOPICAL OINTMENT TP SCH ×2 (12:00→22:55)
--- NOTE | 2017-03-01 12:17 | PN ---
Teaching Attending Note Name of Resident: Guillermo Pelayo ATTENDING PHYSICIAN STATEMENT I saw and evaluated the patient. I reviewed the resident's note and discussed the case with the resident. I agree with the resident's findings and plan as documented. SUBJECTIVE: Patient seen and examined in the ICU. Remains intubated on AC MOde of vent, 40 % FiO2. Lethargic but arousable. Intermittently able to follow some simple commands. No pressors. CXR : Clear / ETT slightly high Intake & Output 02/26/17 02/27/17 02/28/17 03/01/17 23:59 23:59 23:59 23:59 Intake Total 300 2750 2900 1380 Output Total 900 1450 1000 200 Balance -600 1300 1900 1180 Weight 135 lb 0.001 oz 159 lb 2.78 oz 160 lb 14.999 oz 164 lb 2 oz Last Vital Signs Temp Pulse Resp BP Pulse Ox 98.6 F 100 H 17 117/71 98 03/01/17 10:00 03/01/17 10:21 03/01/17 11:56 03/01/17 10:00 03/01/17 10:21 Active Medications Albuterol/Ipratropium (Duoneb -) 1 amp NEB TIDR [facility] Last Admin: 03/01/17 07:05 Dose: 1 amp Bacitracin (Bacitracin -) 1 applic TP BID [facility] Last Admin: 02/28/17 22:37 Dose: 1 applic Chlorhexidine Gluconate (Peridex -) 15 ml MM BID [facility] Last Admin: 03/01/17 09:47 Dose: 15 ml Heparin Sodium (Porcine) (Heparin -) 5,000 unit SQ TID [facility] Last Admin: 02/28/17 22:37 Dose: 5,000 unit Vancomycin HCl 1,250 mg/ (Dextrose) 250 mls @ 166.667 mls/hr IVPB Q24H [facility] PRN Reason: Protocol Last Admin: 02/28/17 18:29 Dose: 166.667 mls/hr Famotidine/Sodium Chloride (Pepcid 20 Mg Premixed Ivpb -) 50 mls @ 100 mls/hr IVPB DAILY@0600 [facility] Last Admin: 03/01/17 05:35 Dose: 100 mls/hr Piperacillin Sod/Tazobactam Sod (Zosyn 3.375gm Ivpb (Pre-Docked)) 50 mls @ 100 mls/hr IVPB Q8H-IV [facility] PRN Reason: Protocol Last Admin: 03/01/17 09:46 Dose: 100 mls/hr Dextrose/Sodium Chloride (D5-1/3ns -) 500 mls @ 100 mls/hr IV ASDIR [facility] Last Admin: 03/01/17 07:57 Dose: 100 mls/hr Gen: intubated, lethargic but arousable Neck: (-) JVD Heart: RRR Lung: Clear Abd: soft, nontender Ext: no edema Laboratory Results - last 24 hr 02/28/17 02/28/17 02/28/17 05:15 05:15 05:15 WBC RBC Hgb Hct MCV MCH MCHC RDW Plt Count MPV Neutrophils % Lymphocytes % Monocytes % Eosinophils % Basophils % Platelet Estimate Platelet Comment Anisocytosis ESR PT with INR INR Puncture Site ABG pH ABG pCO2 at Pt Temp ABG pO2 at Pt Temp ABG HCO3 ABG O2 Sat (Measured) ABG O2 Content ABG Base Excess Roney Test O2 Delivery Device Oxygen Flow Rate Vent Mode Vent Rate Mechanical Rate PEEP Pressure Support Vent Sodium 157 H Potassium 4.3 Chloride 124 H Carbon Dioxide 26 Anion Gap 7 L BUN 38 H D Creatinine 1.2 H Creat Clearance w eGFR 48.58 Random Glucose 166 H Calcium 8.0 L Phosphorus Magnesium Total Bilirubin 0.5 AST 81 H D ALT 44 D Alkaline Phosphatase 76 Total Protein 5.9 L Albumin 3.0 L TSH 1.91 Free T4 0.87 Free T3 1.9 L Cortisol AM Sample 28.3 Opiates Screen Methadone Screen Barbiturate Screen Phencyclidine Screen Ur Amphetamines Screen MDMA (Ecstasy) Screen Benzodiazepines Screen Cocaine Screen U Marijuana (THC) Screen 02/28/17 02/28/17 03/01/17 10:57 17:45 05:10 WBC 16.2 H RBC 4.16 Hgb 9.6 L D Hct 30.7 L MCV 73.8 L MCH 23.1 L MCHC 31.3 L RDW 22.9 H Plt Count 172 MPV 12.3 H Neutrophils % 86.1 H Lymphocytes % 4.9 L Monocytes % 7.1 Eosinophils % 1.8 Basophils % 0.1 Platelet Estimate Adequate Platelet Comment Few large plts Anisocytosis 2+ ESR 39 H PT with INR INR Puncture Site ABG pH ABG pCO2 at Pt Temp ABG pO2 at Pt Temp ABG HCO3 ABG O2 Sat (Measured) ABG O2 Content ABG Base Excess Roney Test O2 Delivery Device Oxygen Flow Rate Vent Mode Vent Rate Mechanical Rate PEEP Pressure Support Vent Sodium 155 H Potassium 3.9 Chloride 120 H Carbon Dioxide 28 Anion Gap 7 L BUN 28 H D Creatinine 1.0 Creat Clearance w eGFR Random Glucose 168 H Calcium 7.5 L Phosphorus Magnesium Total Bilirubin AST ALT Alkaline Phosphatase Total Protein Albumin TSH Free T4 Free T3 Cortisol AM Sample Opiates Screen Methadone Screen Barbiturate Screen Phencyclidine Screen Ur Amphetamines Screen MDMA (Ecstasy) Screen Benzodiazepines Screen Cocaine Screen U Marijuana (THC) Screen 03/01/17 03/01/17 03/01/17 05:10 07:09 07:50 WBC RBC Hgb Hct MCV MCH MCHC RDW Plt Count MPV Neutrophils % Lymphocytes % Monocytes % Eosinophils % Basophils % Platelet Estimate Platelet Comment Anisocytosis ESR PT with INR INR Puncture Site Left radial ABG pH 7.43 ABG pCO2 at Pt Temp 36.7 ABG pO2 at Pt Temp 170.0 H* ABG HCO3 23.8 ABG O2 Sat (Measured) 99.4 H ABG O2 Content 13.8 L ABG Base Excess 0.2 Roney Test Positive O2 Delivery Device Mech vent Oxygen Flow Rate 40% Vent Mode A/c Vent Rate 16 Mechanical Rate Yes PEEP 5.0 Pressure Support Vent 400 Sodium 153 H Potassium 3.5 Chloride 119 H Carbon Dioxide 26 Anion Gap 8 BUN 24 H Creatinine 0.9 Creat Clearance w eGFR > 60 Random Glucose 182 H Calcium 7.8 L Phosphorus 2.5 Magnesium 3.1 H Total Bilirubin 0.4 AST 70 H ALT 39 Alkaline Phosphatase 79 Total Protein 5.3 L Albumin 2.7 L TSH Free T4 Free T3 Cortisol AM Sample Opiates Screen Positive Methadone Screen Negative Barbiturate Screen Positive Phencyclidine Screen Negative Ur Amphetamines Screen Negative MDMA (Ecstasy) Screen Negative Benzodiazepines Screen Positive Cocaine Screen Negative U Marijuana (THC) Screen Negative 03/01/17 08:30 WBC RBC Hgb Hct MCV MCH MCHC RDW Plt Count MPV Neutrophils % Lymphocytes % Monocytes % Eosinophils % Basophils % Platelet Estimate Platelet Comment Anisocytosis ESR PT with INR 13.20 H INR 1.20 H Puncture Site ABG pH ABG pCO2 at Pt Temp ABG pO2 at Pt Temp ABG HCO3 ABG O2 Sat (Measured) ABG O2 Content ABG Base Excess Roney Test O2 Delivery Device Oxygen Flow Rate Vent Mode Vent Rate Mechanical Rate PEEP Pressure Support Vent Sodium Potassium Chloride Carbon Dioxide Anion Gap BUN Creatinine Creat Clearance w eGFR Random Glucose Calcium Phosphorus Magnesium Total Bilirubin AST ALT Alkaline Phosphatase Total Protein Albumin TSH Free T4 Free T3 Cortisol AM Sample Opiates Screen Methadone Screen Barbiturate Screen Phencyclidine Screen Ur Amphetamines Screen MDMA (Ecstasy) Screen Benzodiazepines Screen Cocaine Screen U Marijuana (THC) Screen ASSESSMENT AND PLAN: Altered Mental Status Acute Respiratory Failure r/o Drug Overdose r/o Anoxic Encephalopathy Acute Kidney Injury Lupus Hypernatremia - Hold LP for now as mental status is improving and I have a very low suspicion of meningitis/encephalitis - hold all sedation to assess mental status - (?) D/C ABX - free water replacement - monitor urine output, creatinine - SBTs - enteral feeds - DVT/GI prophylaxis Dr Chambers critical care time spent in reviewing chart, evaluating patient and formulating plan 40 min
[2017-03-01] MEDS: HEPARIN NA (PORCINE) 5,000 UNITS/ML 1ML VIAL SQ SCH ×2 (14:25→22:55)
--- NOTE | 2017-03-01 15:49 | PN ---
Progress Note, Physician History of Present Illness: continues to be intubated patient still with no response neurologically no change - Current Medication List Current Medications: Active Medications Albuterol/Ipratropium (Duoneb -) 1 amp NEB TIDR [facility] Last Admin: 03/01/17 07:05 Dose: 1 amp Bacitracin (Bacitracin -) 1 applic TP BID [facility] Last Admin: 03/01/17 12:00 Dose: 1 applic Chlorhexidine Gluconate (Peridex -) 15 ml MM BID [facility] Last Admin: 03/01/17 09:47 Dose: 15 ml Heparin Sodium (Porcine) (Heparin -) 5,000 unit SQ TID [facility] Last Admin: 03/01/17 14:25 Dose: 5,000 unit Vancomycin HCl 1,250 mg/ (Dextrose) 250 mls @ 166.667 mls/hr IVPB Q24H [facility] PRN Reason: Protocol Last Admin: 02/28/17 18:29 Dose: 166.667 mls/hr Famotidine/Sodium Chloride (Pepcid 20 Mg Premixed Ivpb -) 50 mls @ 100 mls/hr IVPB DAILY@0600 [facility] Last Admin: 03/01/17 05:35 Dose: 100 mls/hr Piperacillin Sod/Tazobactam Sod (Zosyn 3.375gm Ivpb (Pre-Docked)) 50 mls @ 100 mls/hr IVPB Q8H-IV [facility] PRN Reason: Protocol Last Admin: 03/01/17 09:46 Dose: 100 mls/hr Dextrose/Sodium Chloride (D5-1/3ns -) 500 mls @ 100 mls/hr IV ASDIR [facility] Last Admin: 03/01/17 13:37 Dose: 100 mls/hr - Objective Vital Signs: Vital Signs Temperature 98.9 F 03/01/17 14:00 Pulse Rate 105 H 03/01/17 14:00 Respiratory Rate 18 03/01/17 14:16 Blood Pressure 134/78 03/01/17 14:00 O2 Sat by Pulse Oximetry (%) 98 03/01/17 10:21 Constitutional: Yes: Other Cardiovascular: Yes: Regular Rate and Rhythm, Tachycardia Respiratory: Yes: Mechanically Ventilated Gastrointestinal: Yes: Normal Bowel Sounds, Soft Musculoskeletal: Yes: WNL Extremities: Yes: WNL Neurological: Yes: Other Labs: CBC, BMP 03/01/17 05:10 03/01/17 05:10 INR, PTT INR 1.20 (0.82-1.09) H 03/01/17 08:30 Assessment/Plan Problem List - Problems (1) Overdose Code(s): T50.901A - POISONING BY UNSP DRUG/MEDS/BIOL SUBST, ACCIDENTAL, INIT Qualifiers: Encounter type: initial encounter Injury intent: undetermined intent Qualified Code(s): T50.904A - Poisoning by unspecified drugs, medicaments and biological substances, undetermined, initial encounter (2) Polypharmacy Code(s): Z79.899 - OTHER NURSING HOME (CURRENT) DRUG THERAPY (3) Unresponsive Code(s): R41.89 - OTH SYMPTOMS AND SIGNS W COGNITIVE FUNCTIONS AND AWARENESS (4) TRENT (acute kidney injury) Code(s): N17.9 - ACUTE KIDNEY FAILURE, UNSPECIFIED (5) Rhabdomyolysis Code(s): M62.82 - RHABDOMYOLYSIS (6) Respiratory failure Code(s): J96.90 - RESPIRATORY FAILURE, UNSP, UNSP W HYPOXIA OR HYPERCAPNIA asp pna leukocytosis uti wbc have started increasing plan continue abx continue current mgmt as per icu neurology nutrition cc time 40 min
--- NOTE | 2017-03-01 16:59 | PN ---
Progress Note, Physician History of Present Illness: intubated - Current Medication List Current Medications: Active Medications Albuterol/Ipratropium (Duoneb -) 1 amp NEB TIDR [facility] 234 BEDS AT [facility] Last Admin: 03/01/17 07:05 Dose: 1 amp Bacitracin (Bacitracin -) 1 applic TP BID [facility] 234 BEDS AT [facility] Last Admin: 03/01/17 12:00 Dose: 1 applic Chlorhexidine Gluconate (Peridex -) 15 ml MM BID [facility] 234 BEDS AT [facility] Last Admin: 03/01/17 09:47 Dose: 15 ml Heparin Sodium (Porcine) (Heparin -) 5,000 unit SQ TID [facility]CLUDE 234 BEDS AT [facility] Last Admin: 03/01/17 14:25 Dose: 5,000 unit Vancomycin HCl 1,250 mg/ (Dextrose) 250 mls @ 166.667 mls/hr IVPB Q24H [facility]S [facility]CLUDE 234 BEDS AT THE [facility] PRN Reason: Protocol Last Admin: 02/28/17 18:29 Dose: 166.667 mls/hr Famotidine/Sodium Chloride (Pepcid 20 Mg Premixed Ivpb -) 50 mls @ 100 mls/hr IVPB DAILY@0600 [facility]S [facility]CLUDE 234 BEDS AT [facility] Last Admin: 03/01/17 05:35 Dose: 100 mls/hr Piperacillin Sod/Tazobactam Sod (Zosyn 3.375gm Ivpb (Pre-Docked)) 50 mls @ 100 mls/hr IVPB Q8H-IV [facility]S [facility]CLUDE 234 BEDS AT THE [facility] PRN Reason: Protocol Last Admin: 03/01/17 09:46 Dose: 100 mls/hr Dextrose/Sodium Chloride (D5-1/3ns -) 500 mls @ 100 mls/hr IV ASDIR COUNTS INCLUDE 234 BEDS AT THE [facility] Last Admin: 03/01/17 13:37 Dose: 100 mls/hr - Objective Vital Signs: Vital Signs Temperature 98.9 F 03/01/17 14:00 Pulse Rate 105 H 03/01/17 14:00 Respiratory Rate 19 03/01/17 15:53 Blood Pressure 134/78 03/01/17 14:00 O2 Sat by Pulse Oximetry (%) 98 03/01/17 10:21 Constitutional: Yes: Calm HENT: Yes: Atraumatic Neck: Yes: Supple Cardiovascular: Yes: Regular Rate and Rhythm Respiratory: Yes: Rhonchi Gastrointestinal: Yes: Normal Bowel Sounds Extremities: Yes: WNL Edema: No Integumentary: Yes: Pressure Ulcer, Other (same skin findings as on admission) Neurological: Yes: Other (intubated) Labs: CBC, BMP 03/01/17 05:10 03/01/17 05:10 INR, PTT INR 1.20 (0.82-1.09) H 03/01/17 08:30 Problem List - Problems (1) TRENT (acute kidney injury) Assessment/Plan: on iv hydration CR WNL TODAY Code(s): N17.9 - ACUTE KIDNEY FAILURE, UNSPECIFIED (2) Anoxic brain injury Assessment/Plan: neuro checks no change in status Code(s): G93.1 - ANOXIC BRAIN DAMAGE, NOT ELSEWHERE CLASSIFIED (3) Coma Assessment/Plan: intubated Code(s): R40.20 - UNSPECIFIED COMA Qualifiers: Coma depth: Rossy coma 3-8 Coma timing: at arrival to emergency department Qualified Code(s): R40.2432 - Rossy coma scale score 3-8, at arrival to emergency department (4) Overdose Assessment/Plan: reportedly pt is on pain meds per 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 brain 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 mechanic Code(s): T50.901A - POISONING BY UNSP DRUG/MEDS/BIOL SUBST, ACCIDENTAL, INIT Qualifiers: Encounter type: initial encounter Injury intent: undetermined intent Qualified Code(s): T50.904A - Poisoning by unspecified drugs, medicaments and biological substances, undetermined, initial encounter (5) Polypharmacy Code(s): Z79.899 - OTHER [facility] (CURRENT) DRUG THERAPY (6) Respiratory failure Assessment/Plan: intubated sedated Code(s): J96.90 - RESPIRATORY FAILURE, UNSP, UNSP W HYPOXIA OR HYPERCAPNIA Qualifiers: Chronicity: acute (7) Rhabdomyolysis Assessment/Plan: ivf will check cpk Code(s): M62.82 - RHABDOMYOLYSIS (8) Unresponsive Code(s): R41.89 - OTH SYMPTOMS AND SIGNS W COGNITIVE FUNCTIONS AND AWARENESS (9) UTI (urinary tract infection) Code(s): N39.0 - URINARY TRACT INFECTION, SITE NOT SPECIFIED Assessment/Plan cc time 35 min
[2017-03-01] MEDS: VANCOMYCIN 1,250 MG in DEXTROSE 5%-WATER - 250 ML IVPB SCH (18:15)
[2017-03-01] MEDS ORDERED: ACETAMINOPHEN 325 MG TABLET (FP) PO PRN (22:52)
[2017-03-01] MEDS ORDERED: ACETAMINOPHEN 325 MG TABLET (FP) ONE (22:54)
[2017-03-02] MEDS: PIPERACILLIN/TAZOB 3.375 GM 50 ML IVPB SCH ×3 (01:52→19:00)
[2017-03-02] MEDS: ALBUTEROL SO4 2.5/IPRATROPIUM 0.5 INH SOL 3 ML VIAL.NEB. NEB SCH ×3 (05:32→22:24)
[2017-03-02 05:55] LABS: BASOPHIL 0.2 % (0-2.0); MCH 23.1 pg (25.7-33.7); MCHC 31.5 g/dl (32.0-36.0); MEAN CELL VOLUME 73.5 fl (80-96); MEAN PLT VOLUME 13.1 fl (7.5-11.1); NEUTROPHILS 85.2 % (42.8-82.8); PLATELET COUNT 173 K/MM3 (134-434); RDW 22.7 % (11.6-15.6); WHITE BLOOD COUNT 15.6 K/mm3 (4.0-10.0)
[2017-03-02 06:22] LABS: ALBUMIN 2.4 g/dl (3.4-5.0); ANION GAP 9 (8-16); CALCIUM 7.8 mg/dL (8.5-10.1); CO2 25 mmol/L (21-32); GLUCOSE,RANDOM 198 mg/dL (74-106); MAGNESIUM 2.3 mg/dL (1.8-2.4)
[2017-03-02] MEDS: HEPARIN NA (PORCINE) 5,000 UNITS/ML 1ML VIAL SQ SCH ×3 (06:25→21:30)
[2017-03-02] MEDS: FAMOTIDINE 20 MG/50 ML IVPB 50 ML IVPB SCH (06:25)
[2017-03-02 06:26] LABS: ALK PHOS 73 U/L (45-117); BILIRUBIN,TOTAL 0.3 mg/dL (0.2-1.0); CREATININE 0.7 mg/dL (0.55-1.02); PHOSPHOROUS 2.4 mg/dL (2.5-4.9); SGOT/AST 75 U/L (15-37); SGPT/ALT 36 U/L (12-78); TOT PROT 4.9 g/dl (6.4-8.2)
--- NOTE | 2017-03-02 07:13 | PN ---
Physical Exam: SUBJECTIVE: Patient seen and examined. Patient much more awake today. Aiming to wean her form ventilator OBJECTIVE: Vital Signs Period Temp Pulse Resp BP Sys/Pena Pulse Ox Last 24 Hr 97.5 F-101 F 93-110 16- 102-137/65-82 98 Intake & Output 02/27/17 02/28/17 03/01/17 03/02/17 23:59 23:59 23:59 23:59 Intake Total 2750 2900 3395 2130 Output Total 1450 1000 700 200 Balance 1300 1900 2695 1930 Weight 72.2 kg 73 kg 74.446 kg 76.6 kg GENERAL: intubated. not on sedation. Follow commands communicates by blinking for yes/no questions EYES: PERRL, ENT: Ears normal, nares patent, NECK: Trachea midline, full range of motion, supple. LUNGS: Breath sounds equal, clear to auscultation bilaterally, HEART: s1s2 normal, regular. ABDOMEN: Soft, nontender, nondistended, normoactive bowel sounds, EXTREMITIES: , warm, no edema. mulitple pressure ulcers NEUROLOGICAL: able to move all four limbs PSYCH: Normal mood, normal affect. Laboratory Results - last 24 hr 02/28/17 03/01/17 03/01/17 10:57 05:10 07:09 WBC RBC Hgb Hct MCV MCH MCHC RDW Plt Count MPV Neutrophils % Lymphocytes % Monocytes % Eosinophils % Basophils % PT with INR INR Puncture Site Left radial ABG pH 7.43 ABG pCO2 at Pt Temp 36.7 ABG pO2 at Pt Temp 170.0 H* ABG HCO3 23.8 ABG O2 Sat (Measured) 99.4 H ABG O2 Content 13.8 L ABG Base Excess 0.2 Roney Test Positive O2 Delivery Device Mech vent Oxygen Flow Rate 40% Vent Mode A/c Vent Rate 16 Mechanical Rate Yes PEEP 5.0 Pressure Support Vent 400 Sodium 153 H Potassium 3.5 Chloride 119 H Carbon Dioxide 26 Anion Gap 8 BUN 24 H Creatinine 0.9 Creat Clearance w eGFR > 60 Random Glucose 182 H Calcium 7.8 L Phosphorus 2.5 Magnesium 3.1 H Total Bilirubin 0.4 AST 70 H ALT 39 Alkaline Phosphatase 79 Creatine Kinase Creatine Kinase Index CK-MB (CK-2) Total Protein 5.3 L Albumin 2.7 L Opiates Screen Methadone Screen Barbiturate Screen Phencyclidine Screen Ur Amphetamines Screen MDMA (Ecstasy) Screen Benzodiazepines Screen Cocaine Screen U Marijuana (THC) Screen GONSALO Screen Negative 03/01/17 03/01/17 03/01/17 07:50 08:30 21:40 WBC RBC Hgb Hct MCV MCH MCHC RDW Plt Count MPV Neutrophils % Lymphocytes % Monocytes % Eosinophils % Basophils % PT with INR 13.20 H INR 1.20 H Puncture Site ABG pH ABG pCO2 at Pt Temp ABG pO2 at Pt Temp ABG HCO3 ABG O2 Sat (Measured) ABG O2 Content ABG Base Excess Roney Test O2 Delivery Device Oxygen Flow Rate Vent Mode Vent Rate Mechanical Rate PEEP Pressure Support Vent Sodium Potassium Chloride Carbon Dioxide Anion Gap BUN Creatinine Creat Clearance w eGFR Random Glucose Calcium Phosphorus Magnesium Total Bilirubin AST ALT Alkaline Phosphatase Creatine Kinase 1086 H Creatine Kinase Index 0.2 CK-MB (CK-2) 2.281 Total Protein Albumin Opiates Screen Positive Methadone Screen Negative Barbiturate Screen Positive Phencyclidine Screen Negative Ur Amphetamines Screen Negative MDMA (Ecstasy) Screen Negative Benzodiazepines Screen Positive Cocaine Screen Negative U Marijuana (THC) Screen Negative GONSALO Screen 03/02/17 03/02/17 05:00 05:00 WBC 15.6 H RBC 3.79 Hgb 8.8 L Hct 27.9 L MCV 73.5 L MCH 23.1 L MCHC 31.5 L RDW 22.7 H Plt Count 173 MPV 13.1 H Neutrophils % 85.2 H Lymphocytes % 5.2 L Monocytes % 7.4 Eosinophils % 2.0 Basophils % 0.2 PT with INR INR Puncture Site ABG pH ABG pCO2 at Pt Temp ABG pO2 at Pt Temp ABG HCO3 ABG O2 Sat (Measured) ABG O2 Content ABG Base Excess Roney Test O2 Delivery Device Oxygen Flow Rate Vent Mode Vent Rate Mechanical Rate PEEP Pressure Support Vent Sodium 148 H Potassium 3.3 L Chloride 114 H Carbon Dioxide 25 Anion Gap 9 BUN 16 D Creatinine 0.7 D Creat Clearance w eGFR > 60 Random Glucose 198 H Calcium 7.8 L Phosphorus 2.4 L Magnesium 2.3 D Total Bilirubin 0.3 D AST 75 H ALT 36 Alkaline Phosphatase 73 Creatine Kinase Creatine Kinase Index CK-MB (CK-2) Total Protein 4.9 L Albumin 2.4 L Opiates Screen Methadone Screen Barbiturate Screen Phencyclidine Screen Ur Amphetamines Screen MDMA (Ecstasy) Screen Benzodiazepines Screen Cocaine Screen U Marijuana (THC) Screen GONSALO Screen Active Medications Generic Name Dose Route Start Last Admin Trade Name Freq PRN Reason Stop Dose Admin Acetaminophen 650 mg 03/01/17 22:52 03/01/17 22:58 Tylenol - PO 650 mg Q6H PRN Administration FEVER OR PAIN Albuterol/Ipratropium 1 amp 02/28/17 14:00 03/02/17 05:32 Duoneb - NEB 1 amp TIDR [facility] Administration Bacitracin 1 applic 02/28/17 10:00 03/01/17 22:55 Bacitracin - TP 1 applic BID [facility] Administration Chlorhexidine Gluconate 15 ml 02/28/17 10:00 03/01/17 22:55 Peridex - MM 15 ml BID [facility] Administration Heparin Sodium (Porcine) 5,000 unit 02/26/17 22:00 03/02/17 06:25 Heparin - SQ 5,000 unit TID [facility] Administration Vancomycin HCl 1,250 mg/ 250 mls @ 166.667 mls/hr 02/26/17 18:00 03/01/17 18:15 Dextrose IVPB 166.667 mls/hr Q24H [facility] Administration Protocol Famotidine/Sodium Chloride 50 mls @ 100 mls/hr 02/27/17 06:00 03/02/17 06:25 Pepcid 20 Mg Premixed Ivpb - IVPB 100 mls/hr DAILY@0600 [facility] Administration Piperacillin Sod/Tazobactam Sod 50 mls @ 100 mls/hr 02/27/17 09:03 03/02/17 01: 52 Zosyn 3.375gm Ivpb (Pre-Docked) IVPB 100 mls/hr Q8H-IV [facility] Administration Protocol Dextrose/Sodium Chloride 500 mls @ 100 mls/hr 02/27/17 10:45 03/01/17 13:37 D5-1/3ns - IV 100 mls/hr ASDIR [facility] Administration ASSESSMENT/PLAN: AMS - Drug Overdose vs Anoxic Encephalopathy vs seizure disorder vs meningitis vs encephalitis - Patient extubated. monitor closely - follow GONSALO, rheumatology consult if SLE has cerebral involvement. - EEG if possible Acute Kidney Injury - Hypernatremia - free water replacement - monitor urine output, creatinine ID - If Infectious Disease consultants agree, d/c antibiotics as there's no apparent infection - Deescalate ABX for dunn-sensitive E Coli - SBTs - enteral feeds - DVT/GI prophylaxis PCP: Chato Canela [phone] Visit type - Emergency Visit Emergency Visit: No - New Patient This patient is new to me today: No - Critical Care Critical Care patient: Yes Total Critical Care Time (in minutes): 30 Critical Care Statement: The care of this patient involved high complexity decision making to prevent further life threatening deterioration of the patient 's condition and/or to evaluate & treat vital organ system(s) failure or risk of failure.
[2017-03-02 10:12] LABS: COMPLEMENT C3 131 mg/dL (82-167); COMPLEMENT C4 25 mg/dL (14-44)
--- NOTE | 2017-03-02 10:12 | PN ---
Progress Note (short form) - Note Progress Note: Neurology History of Present Illness 46 year old female presented to ER completely unresponsive, Rossy coma scale of 3, who was "found down" possibly for several days and last known well two days ago. Found in her own urine and feces without explanation of why. Concern for airway protection and ER intubated and put on mechanical ventilation in the ER. CT head completed and did not show acute changes. UTox positive for benzo, barbiturates, and opiods. Also with WBC of 18. Concern for drug overdose, in ICU in close monitoring, intubated and mechanical ventilation, no spontaneous movements. Is blinking to threat and does have pupil response. She did close her eyes for nurse this morning but no other significant activity. Ct head completed and did not show signs of anoxic brain injury, MRI would be ideal but not feasible with vent. Overbreathing and more awake, followed command to squeeze hand this morning, tracking me through room. Active Medications Acetaminophen (Tylenol -) 650 mg PO Q6H PRN PRN Reason: FEVER OR PAIN Last Admin: 03/01/17 22:58 Dose: 650 mg Albuterol/Ipratropium (Duoneb -) 1 amp NEB TIDR [facility] Last Admin: 03/02/17 05:32 Dose: 1 amp Bacitracin (Bacitracin -) 1 applic TP BID [facility] Last Admin: 03/01/17 22:55 Dose: 1 applic Chlorhexidine Gluconate (Peridex -) 15 ml MM BID [facility] Last Admin: 03/01/17 22:55 Dose: 15 ml Heparin Sodium (Porcine) (Heparin -) 5,000 unit SQ TID [facility] Last Admin: 03/02/17 06:25 Dose: 5,000 unit Vancomycin HCl 1,250 mg/ (Dextrose) 250 mls @ 166.667 mls/hr IVPB Q24H [facility] PRN Reason: Protocol Last Admin: 03/01/17 18:15 Dose: 166.667 mls/hr Famotidine/Sodium Chloride (Pepcid 20 Mg Premixed Ivpb -) 50 mls @ 100 mls/hr IVPB DAILY@0600 [facility] Last Admin: 03/02/17 06:25 Dose: 100 mls/hr Piperacillin Sod/Tazobactam Sod (Zosyn 3.375gm Ivpb (Pre-Docked)) 50 mls @ 100 mls/hr IVPB Q8H-IV [facility] PRN Reason: Protocol Last Admin: 03/02/17 01:52 Dose: 100 mls/hr Dextrose/Sodium Chloride (D5-1/3ns -) 500 mls @ 100 mls/hr IV ASDIR [facility] Last Admin: 03/01/17 13:37 Dose: 100 mls/hr *Physical Exam Vital Signs Period Temp Pulse Resp BP Sys/Pena Pulse Ox Last 24 Hr 97.5 F-101 F 93-110 16-22 102-134/61-78 98 Awake, tracking examiner, intubated, on mechanical ventilation Squeezing hand to command, not raising arms or legs to command Responds to tactile stimulation Pupils responsive Lungs sounds mechanical RRR Abdomen soft CBCD WBC 15.6 K/mm3 (4.0-10.0) H 03/02/17 05:00 RBC 3.79 M/mm3 (3.60-5.2) 03/02/17 05:00 Hgb 8.8 GM/dL (10.7-15.3) L 03/02/17 05:00 Hct 27.9 % (32.4-45.2) L 03/02/17 05:00 MCV 73.5 fl (80-96) L 03/02/17 05:00 MCHC 31.5 g/dl (32.0-36.0) L 03/02/17 05:00 RDW 22.7 % (11.6-15.6) H 03/02/17 05:00 Plt Count 173 K/MM3 (134-434) 03/02/17 05:00 MPV 13.1 fl (7.5-11.1) H 03/02/17 05:00 CMP Sodium 148 mmol/L (136-145) H 03/02/17 05:00 Potassium 3.3 mmol/L (3.5-5.1) L 03/02/17 05:00 Chloride 114 mmol/L (98-107) H 03/02/17 05:00 Carbon Dioxide 25 mmol/L (21-32) 03/02/17 05:00 Anion Gap 9 (8-16) 03/02/17 05:00 BUN 16 mg/dL (7-18) D 03/02/17 05:00 Creatinine 0.7 mg/dL (0.55-1.02) D 03/02/17 05:00 Creat Clearance w eGFR > 60 (>60) 03/02/17 05:00 Calcium 7.8 mg/dL (8.5-10.1) L 03/02/17 05:00 Total Bilirubin 0.3 mg/dL (0.2-1.0) D 03/02/17 05:00 AST 75 U/L (15-37) H 03/02/17 05:00 ALT 36 U/L (12-78) 03/02/17 05:00 Alkaline Phosphatase 73 U/L (45-117) 03/02/17 05:00 Total Protein 4.9 g/dl (6.4-8.2) L 03/02/17 05:00 Albumin 2.4 g/dl (3.4-5.0) L 03/02/17 05:00 CT head reviewed Plan: 46 year old female presented to ER completely unresponsive, Rossy coma scale of 3, who was "found down" possibly for several days and last known well two days ago. Found in her own urine and feces without explanation of why. Concern for airway protection and ER intubated and put on mechanical ventilation, under close observation in the ICU. CT head completed and did not show acute changes. Repeat CT head without acute changes, did not have signs of anoxic brain injury UTox positive for benzo, barbiturates, and opiods. Concern for drug overdose MRI brain when able Hydration as needed Continue mechanical ventilation, wean as able ID consulted and following, on Zosyn No evidence of seizures Close monitoring in ICU Mental status improving Total Critical Care Time (minutes): 35
[2017-03-02] MEDS: CHLORHEXIDINE GLUCONATE 0.12% 15ML CUP MM SCH ×2 (10:18→21:31)
[2017-03-02] MEDS: BACITRACIN 15 GM TUBE TOPICAL OINTMENT TP SCH ×3 (10:18→21:32)
--- NOTE | 2017-03-02 11:53 | PN ---
Teaching Attending Note Name of Resident: Guillermo Pelayo ATTENDING PHYSICIAN STATEMENT I saw and evaluated the patient. I reviewed the resident's note and discussed the case with the resident. I agree with the resident's findings and plan as documented. SUBJECTIVE: Patient seen and examined in the ICU. Remains intubated on AC Mode of vent, 40 % FiO2. Awake and more responsive. Intermittently able to follow some simple commands. No pressors. CXR : Clear Intake & Output 02/27/17 02/28/17 03/01/17 03/02/17 23:59 23:59 23:59 23:59 Intake Total 2750 2900 3395 2130 Output Total 1450 1000 700 200 Balance 1300 1900 2695 1930 Weight 159 lb 2.78 oz 160 lb 14.999 oz 164 lb 2 oz 168 lb 13.985 oz Last Vital Signs Temp Pulse Resp BP Pulse Ox 99.8 F H 94 H 19 119/76 99 03/02/17 10:00 03/02/17 10:24 03/02/17 10:00 03/02/17 10:00 03/02/17 10:24 Active Medications Acetaminophen (Tylenol -) 650 mg PO Q6H PRN PRN Reason: FEVER OR PAIN Last Admin: 03/01/17 22:58 Dose: 650 mg Albuterol/Ipratropium (Duoneb -) 1 amp NEB TIDR [facility] Last Admin: 03/02/17 05:32 Dose: 1 amp Bacitracin (Bacitracin -) 1 applic TP BID [facility] Chlorhexidine Gluconate (Peridex -) 15 ml MM BID [facility] Last Admin: 03/02/17 10:18 Dose: 15 ml Heparin Sodium (Porcine) (Heparin -) 5,000 unit SQ TID [facility] Last Admin: 03/02/17 06:25 Dose: 5,000 unit Vancomycin HCl 1,250 mg/ (Dextrose) 250 mls @ 166.667 mls/hr IVPB Q24H [facility] PRN Reason: Protocol Last Admin: 03/01/17 18:15 Dose: 166.667 mls/hr Famotidine/Sodium Chloride (Pepcid 20 Mg Premixed Ivpb -) 50 mls @ 100 mls/hr IVPB DAILY@0600 [facility] Last Admin: 03/02/17 06:25 Dose: 100 mls/hr Piperacillin Sod/Tazobactam Sod (Zosyn 3.375gm Ivpb (Pre-Docked)) 50 mls @ 100 mls/hr IVPB Q8H-IV [facility] PRN Reason: Protocol Last Admin: 03/02/17 10:17 Dose: 100 mls/hr Dextrose/Sodium Chloride (D5-1/3ns -) 500 mls @ 100 mls/hr IV ASDIR [facility] Last Admin: 03/01/17 13:37 Dose: 100 mls/hr Gen: intubated, More awake and alert Neck: (-) JVD Heart: RRR Lung: Clear Abd: soft, nontender Ext: no edema Laboratory Results - last 24 hr 02/28/17 02/28/17 03/01/17 10:57 18:00 21:40 WBC RBC Hgb Hct MCV MCH MCHC RDW Plt Count MPV Neutrophils % Lymphocytes % Monocytes % Eosinophils % Basophils % Sodium Potassium Chloride Carbon Dioxide Anion Gap BUN Creatinine Creat Clearance w eGFR Random Glucose Calcium Phosphorus Magnesium Total Bilirubin AST ALT Alkaline Phosphatase Creatine Kinase 1086 H Creatine Kinase Index 0.2 CK-MB (CK-2) 2.281 Total Protein Albumin GONSALO Screen Negative Complement C3 131 Complement C4 25 03/02/17 03/02/17 05:00 05:00 WBC 15.6 H RBC 3.79 Hgb 8.8 L Hct 27.9 L MCV 73.5 L MCH 23.1 L MCHC 31.5 L RDW 22.7 H Plt Count 173 MPV 13.1 H Neutrophils % 85.2 H Lymphocytes % 5.2 L Monocytes % 7.4 Eosinophils % 2.0 Basophils % 0.2 Sodium 148 H Potassium 3.3 L Chloride 114 H Carbon Dioxide 25 Anion Gap 9 BUN 16 D Creatinine 0.7 D Creat Clearance w eGFR > 60 Random Glucose 198 H Calcium 7.8 L Phosphorus 2.4 L Magnesium 2.3 D Total Bilirubin 0.3 D AST 75 H ALT 36 Alkaline Phosphatase 73 Creatine Kinase Creatine Kinase Index CK-MB (CK-2) Total Protein 4.9 L Albumin 2.4 L GONSALO Screen Complement C3 Complement C4 ASSESSMENT AND PLAN: Altered Mental Status Acute Respiratory Failure (?) Substance Overdose Acute Kidney Injury Lupus Hypernatremia UTI - Hold all sedation to assess mental status - Deescalate ABX for dunn-sensitive E Coli - free water replacement - monitor urine output, creatinine - SBTs - enteral feeds - DVT/GI prophylaxis Dr Chambers Critical care time spent in reviewing chart, evaluating patient and formulating plan 40 min
--- NOTE | 2017-03-02 13:28 | PN ---
Progress Note (short form) - Note Progress Note: Vascular Surgery: Dr. Soto Asked by the ICU staff to evaluate the patients multiple decubitus. The patient was found unresponsive and on the floor for several days, ?uncertain amount of time. Her urine tox was positive for narcotics/benozdiazepine. She currently remains intubated in the ICU on CPAP Vital Signs Period Temp Pulse Resp BP Sys/Pena Pulse Ox Last 24 Hr 97.5 F-101 F 92-110 16-27 102-134/61-78 99-99 PMHX: Lupus GEN: Intubated, alert and follows commands Left Flank with 9x3cm soft eschar, left leg with 10x7 soft eschar, left ankle with 1x2cm soft eschar. No bogginess to these areas and without erythema or drainage. Right elbow with 1x1cm skin tear and several areas(left shoulder) which appear to have blistered and popped. b/l heel protectors in place. CBC, BMP 03/02/17 05:00 03/02/17 05:00 A/P: 46 yo female with a h/o of lupus/found unresponsive with multiple abrasions /wounds D/w Dr. Soto, no acute surgical need for debridement local wound care with satnyl/optifoam to larger areas which have soft eschars otherwise bactiracin to smaller superfical wound Hopefully the patient will wean to extubation and then will be able to be more mobile Continue frequent turning/hell protectors and preventive measurement to avoid skin breakdown
--- NOTE | 2017-03-02 14:01 | PN ---
Progress Note, Physician History of Present Illness: continues to be intubated patient responding moving her hands legs - Current Medication List Current Medications: Active Medications Acetaminophen (Tylenol -) 650 mg PO Q6H PRN PRN Reason: FEVER OR PAIN Last Admin: 03/01/17 22:58 Dose: 650 mg Albuterol/Ipratropium (Duoneb -) 1 amp NEB TIDR [facility] Last Admin: 03/02/17 13:40 Dose: 1 amp Bacitracin (Bacitracin -) 1 applic TP BID [facility] Chlorhexidine Gluconate (Peridex -) 15 ml MM BID [facility] Last Admin: 03/02/17 10:18 Dose: 15 ml Collagenase (Santyl -) 1 applic TP DAILY [facility] Heparin Sodium (Porcine) (Heparin -) 5,000 unit SQ TID [facility] Last Admin: 03/02/17 06:25 Dose: 5,000 unit Vancomycin HCl 1,250 mg/ (Dextrose) 250 mls @ 166.667 mls/hr IVPB Q24H [facility] PRN Reason: Protocol Last Admin: 03/01/17 18:15 Dose: 166.667 mls/hr Famotidine/Sodium Chloride (Pepcid 20 Mg Premixed Ivpb -) 50 mls @ 100 mls/hr IVPB DAILY@0600 [facility] Last Admin: 03/02/17 06:25 Dose: 100 mls/hr Piperacillin Sod/Tazobactam Sod (Zosyn 3.375gm Ivpb (Pre-Docked)) 50 mls @ 100 mls/hr IVPB Q8H-IV [facility] PRN Reason: Protocol Last Admin: 03/02/17 10:17 Dose: 100 mls/hr Dextrose/Sodium Chloride (D5-1/3ns -) 500 mls @ 100 mls/hr IV ASDIR [facility] Last Admin: 03/01/17 13:37 Dose: 100 mls/hr - Objective Vital Signs: Vital Signs Temperature 99.8 F H 03/02/17 10:00 Pulse Rate 95 H 03/02/17 13:42 Respiratory Rate 19 03/02/17 12:00 Blood Pressure 113/72 03/02/17 12:00 O2 Sat by Pulse Oximetry (%) 99 03/02/17 13:42 Constitutional: Yes: Other Cardiovascular: Yes: Regular Rate and Rhythm Respiratory: Yes: Mechanically Ventilated Gastrointestinal: Yes: Soft, Hypoactive Bowel Sounds Musculoskeletal: Yes: WNL Extremities: Yes: WNL Neurological: Yes: Other Psychiatric: Yes: Other Labs: CBC, BMP 03/02/17 05:00 03/02/17 05:00 INR, PTT INR 1.20 (0.82-1.09) H 03/01/17 08:30 Assessment/Plan Problem List - Problems (1) Overdose Code(s): T50.901A - POISONING BY UNSP DRUG/MEDS/BIOL SUBST, ACCIDENTAL, INIT Qualifiers: Encounter type: initial encounter Injury intent: undetermined intent Qualified Code(s): T50.904A - Poisoning by unspecified drugs, medicaments and biological substances, undetermined, initial encounter (2) Polypharmacy Code(s): Z79.899 - OTHER [facility] (CURRENT) DRUG THERAPY (3) Unresponsive Code(s): R41.89 - OTH SYMPTOMS AND SIGNS W COGNITIVE FUNCTIONS AND AWARENESS (4) TRENT (acute kidney injury) Code(s): N17.9 - ACUTE KIDNEY FAILURE, UNSPECIFIED (5) Rhabdomyolysis Code(s): M62.82 - RHABDOMYOLYSIS (6) Respiratory failure Code(s): J96.90 - RESPIRATORY FAILURE, UNSP, UNSP W HYPOXIA OR HYPERCAPNIA asp pna leukocytosis uti wbc marginally low plan continue abx all cx negative so far will stop vanco and monitor if patient continues to improve by sunday tucker top zosyn rest ct current mgmt cc time 40 min
--- NOTE | 2017-03-02 14:45 | PN ---
Progress Note, Physician History of Present Illness: Extubated on VM, more arousable. - Current Medication List Current Medications: Active Medications Acetaminophen (Tylenol -) 650 mg PO Q6H PRN PRN Reason: FEVER OR PAIN Last Admin: 03/01/17 22:58 Dose: 650 mg Albuterol/Ipratropium (Duoneb -) 1 amp NEB TIDR [facility] Last Admin: 03/02/17 13:40 Dose: 1 amp Bacitracin (Bacitracin -) 1 applic TP BID [facility] Chlorhexidine Gluconate (Peridex -) 15 ml MM BID [facility] Last Admin: 03/02/17 10:18 Dose: 15 ml Collagenase (Santyl -) 1 applic TP DAILY [facility] Heparin Sodium (Porcine) (Heparin -) 5,000 unit SQ TID [facility] Last Admin: 03/02/17 06:25 Dose: 5,000 unit Famotidine/Sodium Chloride (Pepcid 20 Mg Premixed Ivpb -) 50 mls @ 100 mls/hr IVPB DAILY@0600 [facility] Last Admin: 03/02/17 06:25 Dose: 100 mls/hr Piperacillin Sod/Tazobactam Sod (Zosyn 3.375gm Ivpb (Pre-Docked)) 50 mls @ 100 mls/hr IVPB Q8H-IV [facility] PRN Reason: Protocol Last Admin: 03/02/17 10:17 Dose: 100 mls/hr Dextrose/Sodium Chloride (D5-1/3ns -) 500 mls @ 100 mls/hr IV ASDIR [facility] Last Admin: 03/01/17 13:37 Dose: 100 mls/hr - Objective Vital Signs: Vital Signs Temperature 99.8 F H 03/02/17 10:00 Pulse Rate 95 H 03/02/17 13:42 Respiratory Rate 19 03/02/17 12:00 Blood Pressure 113/72 03/02/17 12:00 O2 Sat by Pulse Oximetry (%) 99 03/02/17 13:42 Constitutional: Yes: No Distress, Calm Neck: Yes: Supple Cardiovascular: Yes: Regular Rate and Rhythm Respiratory: Yes: On Venti-Mask, Rhonchi Gastrointestinal: Yes: Normal Bowel Sounds, Soft Edema: No Labs: CBC, BMP 03/02/17 05:00 03/02/17 05:00 INR, PTT INR 1.20 (0.82-1.09) H 03/01/17 08:30 - ....Imaging Chest X-ray: Report Reviewed (Clear lungs) Problem List - Problems (1) Overdose Code(s): T50.901A - POISONING BY UNSP DRUG/MEDS/BIOL SUBST, ACCIDENTAL, INIT Qualifiers: Encounter type: initial encounter Injury intent: undetermined intent Qualified Code(s): T50.904A - Poisoning by unspecified drugs, medicaments and biological substances, undetermined, initial encounter (2) Respiratory failure Code(s): J96.90 - RESPIRATORY FAILURE, UNSP, UNSP W HYPOXIA OR HYPERCAPNIA Qualifiers: Chronicity: acute (3) Leukocytosis Code(s): D72.829 - ELEVATED WHITE BLOOD CELL COUNT, UNSPECIFIED Qualifiers: Leukocytosis type: unspecified Qualified Code(s): D72.829 - Elevated white blood cell count, unspecified (4) Aspiration pneumonia Code(s): J69.0 - PNEUMONITIS DUE TO INHALATION OF FOOD AND VOMIT Qualifiers: Aspiration pneumonia type: due to vomit Lung location: unspecified part of lung (5) Hypernatremia Code(s): E87.0 - HYPEROSMOLALITY AND HYPERNATREMIA (6) Lupus (systemic lupus erythematosus) Code(s): M32.9 - SYSTEMIC LUPUS ERYTHEMATOSUS, UNSPECIFIED (7) Anemia Code(s): D64.9 - ANEMIA, UNSPECIFIED Qualifiers: Anemia type: unspecified type Qualified Code(s): D64.9 - Anemia, unspecified Assessment/Plan 1. Altered mental status, toxic metabolic encephalopathy, suspect drug overdose (UTox positive for benzo, barbiturates, and opiods), r/o anoxic encephelopathy 2. Leukocytosis, sepsis syndrome, consider asp PNA, UTI 3. History of Lupus 4. Acute kidney insufficiency, possible underlying lupus nephritis, pre-renal azotemia resolved 5. Hyperglycemia 6. Hypernatremia improving 7. Hypokalemia PLAN: 1. IVF and free water repletion, K repletion 2. Empiric antibiotics course per C&S 3. Ventilator management as per the critical care team, BD 4. Echocardiography results reviewed 6. DVT and GI prophylaxis 7. Brain MRI when ready, hold sedation and monitor neurologic status, EEG
[2017-03-02] MEDS ORDERED: POTASSIUM PHOSPHATE 30 MM in DEXTROSE 5%-WATER - 250 ML IVPB ONE (14:52)
[2017-03-02] MEDS: DEXTROSE 5%-1/3 NS - 500 ML IV SCH (15:00)
[2017-03-02] MEDS: COLLAGENASE CLOSTRIDIUM HIST. 30 GRAMS TUBE TP SCH (16:00)
--- NOTE | 2017-03-02 17:25 | PN ---
Progress Note, [employer] [facility] [employer] - Note Progress Note: Dysphagia consultation received this am. Chart review completed: 46 yo female presents with AMS, aspiration precautions. Pt was extubated earlier today. Swallow eval is not advised for at least 24 hours post extubation. [facility] [employer] will evaluation swallow function when appropriate. Results given verbally to cupola chargerHALLIE Duncan and to pcp via chart.
--- NOTE | 2017-03-02 18:14 | PN ---
Progress Note, Physician History of Present Illness: extubated earler today - Current Medication List Current Medications: Active Medications Acetaminophen (Tylenol -) 650 mg PO Q6H PRN PRN Reason: FEVER OR PAIN Last Admin: 03/01/17 22:58 Dose: 650 mg Albuterol/Ipratropium (Duoneb -) 1 amp NEB TIDR [facility] Last Admin: 03/02/17 13:40 Dose: 1 amp Bacitracin (Bacitracin -) 1 applic TP BID [facility] Chlorhexidine Gluconate (Peridex -) 15 ml MM BID [facility] Last Admin: 03/02/17 10:18 Dose: 15 ml Chlorhexidine Gluconate (Hibiclens For Decolonization -) 1 applic TP HS [facility] Collagenase (Santyl -) 1 applic TP DAILY [facility] Heparin Sodium (Porcine) (Heparin -) 5,000 unit SQ TID [facility] Last Admin: 03/02/17 06:25 Dose: 5,000 unit Famotidine/Sodium Chloride (Pepcid 20 Mg Premixed Ivpb -) 50 mls @ 100 mls/hr IVPB DAILY@0600 [facility] Last Admin: 03/02/17 06:25 Dose: 100 mls/hr Piperacillin Sod/Tazobactam Sod (Zosyn 3.375gm Ivpb (Pre-Docked)) 50 mls @ 100 mls/hr IVPB Q8H-IV [facility] PRN Reason: Protocol Last Admin: 03/02/17 10:17 Dose: 100 mls/hr Dextrose/Sodium Chloride (D5-1/3ns -) 500 mls @ 100 mls/hr IV ASDIR [facility] Last Admin: 03/01/17 13:37 Dose: 100 mls/hr Potassium Phosphate 30 mm/ (Dextrose) 260 mls @ 62.5 mls/hr IVPB ONCE ONE Stop: 03/02/17 19:01 Mupirocin (Bactroban Ointment (For Decolonization) -) 1 applic NS BID [facility] Stop: 03/07/17 21:59 - Objective Vital Signs: Vital Signs Temperature 100.0 F H 03/02/17 14:00 Pulse Rate 90 03/02/17 16:00 Respiratory Rate 22 03/02/17 16:00 Blood Pressure 101/63 03/02/17 16:00 O2 Sat by Pulse Oximetry (%) 99 03/02/17 13:42 Constitutional: Yes: No Distress HENT: Yes: Atraumatic Neck: Yes: Supple Cardiovascular: Yes: Regular Rate and Rhythm Respiratory: Yes: Rhonchi Gastrointestinal: Yes: Normal Bowel Sounds Extremities: Yes: WNL Edema: No Peripheral Pulses WNL: Yes Neurological: Yes: Alert Labs: CBC, BMP 03/02/17 05:00 03/02/17 05:00 INR, PTT INR 1.20 (0.82-1.09) H 03/01/17 08:30 Problem List - Problems (1) TRENT (acute kidney injury) Assessment/Plan: on iv hydration CR WNL Code(s): N17.9 - ACUTE KIDNEY FAILURE, UNSPECIFIED (2) Anoxic brain injury Assessment/Plan: pt awake extubated today on venti masks Code(s): G93.1 - ANOXIC BRAIN DAMAGE, NOT ELSEWHERE CLASSIFIED (3) Coma Assessment/Plan: awake Code(s): R40.20 - UNSPECIFIED COMA Qualifiers: Coma depth: Rossy coma 3-8 Coma timing: at arrival to emergency department Qualified Code(s): R40.2432 - [place] coma scale score 3-8, at arrival to emergency department (4) Overdose Assessment/Plan: reportedly pt is on pain meds per prize fighter Code(s): T50.901A - POISONING BY UNSP DRUG/MEDS/BIOL SUBST, ACCIDENTAL, INIT Qualifiers: Encounter type: initial encounter Injury intent: undetermined intent Qualified Code(s): T50.904A - Poisoning by unspecified drugs, medicaments and biological substances, undetermined, initial encounter (5) Polypharmacy Code(s): Z79.899 - OTHER [employer] (CURRENT) DRUG THERAPY (6) Respiratory failure Assessment/Plan: extubated on VM Code(s): J96.90 - RESPIRATORY FAILURE, UNSP, UNSP W HYPOXIA OR HYPERCAPNIA Qualifiers: Chronicity: acute (7) Rhabdomyolysis Assessment/Plan: ivf Code(s): M62.82 - RHABDOMYOLYSIS (8) Unresponsive Code(s): R41.89 - OTH SYMPTOMS AND SIGNS W COGNITIVE FUNCTIONS AND AWARENESS (9) UTI (urinary tract infection) Code(s): N39.0 - URINARY TRACT INFECTION, SITE NOT SPECIFIED
[2017-03-02 20:52] LABS: ANION GAP 7 (8-16); CALCIUM 8.1 mg/dL (8.5-10.1); CO2 24 mmol/L (21-32); CREATININE 0.6 mg/dL (0.55-1.02); GLUCOSE,RANDOM 133 mg/dL (74-106); PHOSPHOROUS 4.9 mg/dL (2.5-4.9)
[2017-03-02] MEDS: CHLORHEXIDINE GLUCONATE 4% CLEANSER FOR DECOLONIZATION TP SCH (21:30)
[2017-03-02] MEDS: MUPIROCIN 2% TOPICAL OINTMENT FOR DECOLONIZATION NS SCH (21:31)
[2017-03-02] MEDS ORDERED: ACETAMINOPHEN 1000 MG/100 ML VIAL (NON FORMULARY) IVPB PRN (22:30)
[2017-03-03] MEDS: PIPERACILLIN/TAZOB 3.375 GM 50 ML IVPB SCH ×3 (02:35→17:44)
[2017-03-03 05:56] LABS: BASOPHIL 0.3 % (0-2.0); EOSINOPHIL 2.1 % (0-4.5); MCH 23.1 pg (25.7-33.7); MCHC 31.4 g/dl (32.0-36.0); MEAN CELL VOLUME 73.7 fl (80-96); NEUTROPHILS 82.1 % (42.8-82.8); RDW 22.3 % (11.6-15.6); WHITE BLOOD COUNT 11.1 K/mm3 (4.0-10.0)
[2017-03-03] MEDS: HEPARIN NA (PORCINE) 5,000 UNITS/ML 1ML VIAL SQ SCH ×3 (06:20→22:49)
[2017-03-03] MEDS: FAMOTIDINE 20 MG/50 ML IVPB 50 ML IVPB SCH (06:22)
[2017-03-03 06:27] LABS: ANION GAP 7 (8-16); CALCIUM 7.8 mg/dL (8.5-10.1); CO2 26 mmol/L (21-32); GLUCOSE,RANDOM 131 mg/dL (74-106); MAGNESIUM 2.2 mg/dL (1.8-2.4)
[2017-03-03 06:38] LABS: FERRITIN 82.355 ng/ml (6.9-282.5)
[2017-03-03 06:42] LABS: CREATININE 0.7 mg/dL (0.55-1.02); PHOSPHOROUS 2.6 mg/dL (2.5-4.9)
[2017-03-03] MEDS: ALBUTEROL SO4 2.5/IPRATROPIUM 0.5 INH SOL 3 ML VIAL.NEB. NEB SCH ×3 (07:04→22:00)
[2017-03-03 07:35] LABS: MEAN PLT VOLUME 12.4 fl (7.5-11.1); PLATELET COUNT 186 K/MM3 (134-434); PLATELET ESTIMATE ADEQUATE (NORMAL)
--- NOTE | 2017-03-03 08:01 | PN ---
Progress Note (short form) - Note Progress Note: Chief Complaint: Events noted, notes reviewed, Extubated awake and alert, denies any chest pain or dyspnea, sinus rhythm is noted History of Present Illness: Seen and examined in the ICU. Events noted, notes reviewed, Extubated awake and alert, denies any chest pain or dyspnea, sinus rhythm is noted Echocardiography report noted sub-optimal study, would recommend repeat TTE prior to planning STEFANIA since patient is currently extubated - Current Medication List Current Medications Acetaminophen (Tylenol -) 650 mg PO Q6H PRN PRN Reason: FEVER OR PAIN Last Admin: 03/01/17 22:58 Dose: 650 mg Acetaminophen (Ofirmev Injection -) 1,000 mg IVPB Q6H PRN PRN Reason: FEVER OR PAIN Stop: 03/03/17 16:31 Last Admin: 03/02/17 23:02 Dose: 1,000 mg Albuterol/Ipratropium (Duoneb -) 1 amp NEB TIDR [facility] Last Admin: 03/03/17 07:04 Dose: 1 amp Bacitracin (Bacitracin -) 1 applic TP BID [facility] Last Admin: 03/02/17 21:32 Dose: 1 applic Chlorhexidine Gluconate (Peridex -) 15 ml MM BID [facility] Last Admin: 03/02/17 21:31 Dose: Not Given Chlorhexidine Gluconate (Hibiclens For Decolonization -) 1 applic TP HS [facility] Last Admin: 03/02/17 21:30 Dose: 1 applic Collagenase (Santyl -) 1 applic TP DAILY [facility] Last Admin: 03/02/17 16:00 Dose: 1 applic Heparin Sodium (Porcine) (Heparin -) 5,000 unit SQ TID [facility] Last Admin: 03/03/17 06:20 Dose: 5,000 unit Famotidine/Sodium Chloride (Pepcid 20 Mg Premixed Ivpb -) 50 mls @ 100 mls/hr IVPB DAILY@0600 [facility] Last Admin: 03/03/17 06:22 Dose: 100 mls/hr Piperacillin Sod/Tazobactam Sod (Zosyn 3.375gm Ivpb (Pre-Docked)) 50 mls @ 100 mls/hr IVPB Q8H-IV [facility] PRN Reason: Protocol Last Admin: 03/03/17 02:35 Dose: 100 mls/hr Dextrose/Sodium Chloride (D5-1/3ns -) 500 mls @ 100 mls/hr IV ASDIR [facility] Last Admin: 03/02/17 15:00 Dose: 100 mls/hr Mupirocin (Bactroban Ointment (For Decolonization) -) 1 applic NS BID [facility] Stop: 03/07/17 21:59 Last Admin: 03/02/17 21:31 Dose: 1 applic Review of Systems Unable to Obtain - Objective Vital Signs: Last Vital Signs Temp Pulse Resp BP Pulse Ox 98.9 F 101 H 16 98/77 99 02/27/17 06:16 02/27/17 08:00 02/27/17 08:00 02/27/17 08:00 02/26/17 20:35 Intake & Output 02/24/17 02/25/17 02/26/17 02/27/17 23:59 23:59 23:59 23:59 Intake Total 300 1100 Output Total 900 500 Balance -600 600 Weight 135 lb 0.001 oz 159 lb 2.78 oz Constitutional: No Distress Neck: Supple Negative JVD Cardiovascular: S1 S2 Regular Rate and Rhythm No Murmurs, Clicks or Gallops Respiratory: Diminished Breath Sounds at the Bases Bilaterally Gastrointestinal: Soft Benign Normal Bowel Sounds Ext: Trace Edema Labs: CBC, BMP 03/03/17 05:15 03/03/17 05:15 Hepatic Panel Total Bilirubin 0.3 mg/dL (0.2-1.0) D 03/02/17 05:00 AST 75 U/L (15-37) H 03/02/17 05:00 ALT 36 U/L (12-78) 03/02/17 05:00 Alkaline Phosphatase 73 U/L (45-117) 03/02/17 05:00 Albumin 2.4 g/dl (3.4-5.0) L 03/02/17 05:00 Assessment/Plan ASSESSMENT: 1. Post respiratory failure, extubation, toxic metabolic encephalopathy, possible drug overdose 2. Sepsis syndrome, resolving 3. History of Lupus 4. Acute on chronic renal insufficiency, pre-renal azotemia, resolved 5. Hyperglycemia 6. Anemia 7. Abnormal echocardiogram, LV dyfunction, RV dyfunction, pulmonary HTN, possible vegitation (sub-optimal study) PLAN: 1. Antibiotics as per the primary team 2. DVT prophylaxis 3. Repeat trans-thoracic echocardiography since patient is extubated to reassess the above noted pathologies Nuvia Kelly MD
--- NOTE | 2017-03-03 09:23 | PN ---
Progress Note (short form) - Note Progress Note: PULMONARY/CCM Pt seen and examined in the ICU. Extubated yesterday without incident. Alert, slow to respond but appropriate, follows commands. Low grade fever overnight. Last Vital Signs Temp Pulse Resp BP Pulse Ox 98 F 91 H 22 107/72 99 03/03/17 06:00 03/03/17 06:00 03/03/17 06:00 03/03/17 06:00 03/02/17 19:36 Intake & Output 02/28/17 03/01/17 03/02/17 03/03/17 23:59 23:59 23:59 23:59 Intake Total 2900 3395 3660 1350 Output Total 1000 778 482 8820 Balance 1900 2695 3060 50 Weight 160 lb 14.999 oz 164 lb 2 oz 168 lb 13.985 oz 169 lb 5.04 oz Gen: alert, awake Heart: RRR Lung: decreased breath sounds at the bases Abd: soft, nontender Ext: no edema CBC, BMP 03/03/17 05:15 03/03/17 05:15 Active Medications Acetaminophen (Tylenol -) 650 mg PO Q6H PRN PRN Reason: FEVER OR PAIN Last Admin: 03/01/17 22:58 Dose: 650 mg Acetaminophen (Ofirmev Injection -) 1,000 mg IVPB Q6H PRN PRN Reason: FEVER OR PAIN Stop: 03/03/17 16:31 Last Admin: 03/02/17 23:02 Dose: 1,000 mg Albuterol/Ipratropium (Duoneb -) 1 amp NEB TIDR [facility] Last Admin: 03/03/17 07:04 Dose: 1 amp Bacitracin (Bacitracin -) 1 applic TP BID [facility] Last Admin: 03/02/17 21:32 Dose: 1 applic Chlorhexidine Gluconate (Peridex -) 15 ml MM BID [facility] Last Admin: 03/02/17 21:31 Dose: Not Given Chlorhexidine Gluconate (Hibiclens For Decolonization -) 1 applic TP HS [facility] Last Admin: 03/02/17 21:30 Dose: 1 applic Collagenase (Santyl -) 1 applic TP DAILY [facility] Last Admin: 03/02/17 16:00 Dose: 1 applic Heparin Sodium (Porcine) (Heparin -) 5,000 unit SQ TID [facility] Last Admin: 03/03/17 06:20 Dose: 5,000 unit Famotidine/Sodium Chloride (Pepcid 20 Mg Premixed Ivpb -) 50 mls @ 100 mls/hr IVPB DAILY@0600 [facility] Last Admin: 03/03/17 06:22 Dose: 100 mls/hr Piperacillin Sod/Tazobactam Sod (Zosyn 3.375gm Ivpb (Pre-Docked)) 50 mls @ 100 mls/hr IVPB Q8H-IV [facility] PRN Reason: Protocol Last Admin: 03/03/17 02:35 Dose: 100 mls/hr Dextrose/Sodium Chloride (D5-1/3ns -) 500 mls @ 100 mls/hr IV ASDIR [facility] Last Admin: 03/02/17 15:00 Dose: 100 mls/hr Mupirocin (Bactroban Ointment (For Decolonization) -) 1 applic NS BID [facility] Stop: 03/07/17 21:59 Last Admin: 03/02/17 21:31 Dose: 1 applic A/P Altered Mental Status Acute Respiratory Failure r/o Drug Overdose Acute Kidney Injury Lupus Hypernatremia - on empiric antibiotics - f/u cultures - IVF - free water replacement - monitor urine output, creatinine - PO as tolerated - DVT prophylaxis - can monitor on floor
[2017-03-03] MEDS: MUPIROCIN 2% TOPICAL OINTMENT FOR DECOLONIZATION NS SCH ×2 (09:47→22:49)
[2017-03-03] MEDS: CHLORHEXIDINE GLUCONATE 0.12% 15ML CUP MM SCH ×2 (09:48→22:50)
[2017-03-03] MEDS: COLLAGENASE CLOSTRIDIUM HIST. 30 GRAMS TUBE TP SCH (09:49)
[2017-03-03] MEDS: BACITRACIN 15 GM TUBE TOPICAL OINTMENT TP SCH ×2 (09:49→22:49)
[2017-03-03] MEDS: DEXTROSE 5%-1/3 NS - 500 ML IV SCH (12:00)
--- NOTE | 2017-03-03 13:48 | PN ---
Progress Note, Physician History of Present Illness: extubated awake and alert - Current Medication List Current Medications: Active Medications Acetaminophen (Tylenol -) 650 mg PO Q6H PRN PRN Reason: FEVER OR PAIN Last Admin: 03/01/17 22:58 Dose: 650 mg Acetaminophen (Ofirmev Injection -) 1,000 mg IVPB Q6H PRN PRN Reason: FEVER OR PAIN Stop: 03/03/17 16:31 Last Admin: 03/02/17 23:02 Dose: 1,000 mg Albuterol/Ipratropium (Duoneb -) 1 amp NEB TIDR [facility] Last Admin: 03/03/17 07:04 Dose: 1 amp Bacitracin (Bacitracin -) 1 applic TP BID [facility] Last Admin: 03/03/17 09:49 Dose: 1 applic Chlorhexidine Gluconate (Peridex -) 15 ml MM BID [facility] Last Admin: 03/03/17 09:48 Dose: Not Given Chlorhexidine Gluconate (Hibiclens For Decolonization -) 1 applic TP HS [facility] Last Admin: 03/02/17 21:30 Dose: 1 applic Collagenase (Santyl -) 1 applic TP DAILY [facility] Last Admin: 03/03/17 09:49 Dose: 1 applic Heparin Sodium (Porcine) (Heparin -) 5,000 unit SQ TID [facility] Last Admin: 03/03/17 06:20 Dose: 5,000 unit Famotidine/Sodium Chloride (Pepcid 20 Mg Premixed Ivpb -) 50 mls @ 100 mls/hr IVPB DAILY@0600 [facility] Last Admin: 03/03/17 06:22 Dose: 100 mls/hr Piperacillin Sod/Tazobactam Sod (Zosyn 3.375gm Ivpb (Pre-Docked)) 50 mls @ 100 mls/hr IVPB Q8H-IV [facility] PRN Reason: Protocol Last Admin: 03/03/17 09:47 Dose: 100 mls/hr Dextrose/Sodium Chloride (D5-1/3ns -) 500 mls @ 100 mls/hr IV ASDIR [facility] Last Admin: 03/02/17 15:00 Dose: 100 mls/hr Mupirocin (Bactroban Ointment (For Decolonization) -) 1 applic NS BID [facility] Stop: 03/07/17 21:59 Last Admin: 03/03/17 09:47 Dose: 1 applic - Objective Vital Signs: Vital Signs Temperature 98 F 03/03/17 06:00 Pulse Rate 90 03/03/17 11:49 Respiratory Rate 22 03/03/17 11:49 Blood Pressure 112/66 03/03/17 11:49 O2 Sat by Pulse Oximetry (%) 99 03/02/17 19:36 Constitutional: Yes: No Distress, Calm Cardiovascular: Yes: Regular Rate and Rhythm Respiratory: Yes: Regular, Rhonchi Gastrointestinal: Yes: Normal Bowel Sounds, Soft Musculoskeletal: Yes: WNL Extremities: Yes: WNL Neurological: Yes: Alert, Oriented Psychiatric: Yes: Alert, Oriented Labs: CBC, BMP 03/03/17 05:15 03/03/17 05:15 INR, PTT INR 1.20 (0.82-1.09) H 03/01/17 08:30 Assessment/Plan Problem List - Problems (1) Overdose Code(s): T50.901A - POISONING BY UNSP DRUG/MEDS/BIOL SUBST, ACCIDENTAL, INIT Qualifiers: Encounter type: initial encounter Injury intent: undetermined intent Qualified Code(s): T50.904A - Poisoning by unspecified drugs, medicaments and biological substances, undetermined, initial encounter (2) Polypharmacy Code(s): Z79.899 - OTHER CHILD [employer]VOC[employer] (CURRENT) DRUG THERAPY (3) Unresponsive Code(s): R41.89 - OTH SYMPTOMS AND SIGNS W COGNITIVE FUNCTIONS AND AWARENESS (4) TRENT (acute kidney injury) Code(s): N17.9 - ACUTE KIDNEY FAILURE, UNSPECIFIED (5) Rhabdomyolysis Code(s): M62.82 - RHABDOMYOLYSIS (6) Respiratory failure Code(s): J96.90 - RESPIRATORY FAILURE, UNSP, UNSP W HYPOXIA OR HYPERCAPNIA asp pna leukocytosis uti wbc marginally low plan continue abx all cx negative so far patient doing well can stop zosyn tomorrow rest as per icu cc time 40 min
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
--- NOTE | 2017-03-03 21:46 | PN ---
Progress Note, Physician History of Present Illness: Pt awake but at times does not answer appropriately - Current Medication List Current Medications: Active Medications Acetaminophen (Tylenol -) 650 mg PO Q6H PRN PRN Reason: FEVER OR PAIN Last Admin: 03/01/17 22:58 Dose: 650 mg Albuterol/Ipratropium (Duoneb -) 1 amp NEB TIDR [facility] Last Admin: 03/03/17 14:45 Dose: 1 amp Bacitracin (Bacitracin -) 1 applic TP BID [facility] Last Admin: 03/03/17 09:49 Dose: 1 applic Chlorhexidine Gluconate (Peridex -) 15 ml MM BID [facility] Last Admin: 03/03/17 09:48 Dose: Not Given Chlorhexidine Gluconate (Hibiclens For Decolonization -) 1 applic TP HS [facility] Last Admin: 03/02/17 21:30 Dose: 1 applic Collagenase (Santyl -) 1 applic TP DAILY [facility] Last Admin: 03/03/17 09:49 Dose: 1 applic Heparin Sodium (Porcine) (Heparin -) 5,000 unit SQ TID [facility] Last Admin: 03/03/17 15:00 Dose: 5,000 unit Famotidine/Sodium Chloride (Pepcid 20 Mg Premixed Ivpb -) 50 mls @ 100 mls/hr IVPB DAILY@0600 [facility] Last Admin: 03/03/17 06:22 Dose: 100 mls/hr Piperacillin Sod/Tazobactam Sod (Zosyn 3.375gm Ivpb (Pre-Docked)) 50 mls @ 100 mls/hr IVPB Q8H-IV [facility]I PRN Reason: Protocol Last Admin: 03/03/17 17:44 Dose: 100 mls/hr Dextrose/Sodium Chloride (D5-1/3ns -) 500 mls @ 100 mls/hr IV ASDIR [facility] Last Admin: 03/03/17 12:00 Dose: 100 mls/hr Mupirocin (Bactroban Ointment (For Decolonization) -) 1 applic NS BID [facility] Stop: 03/07/17 21:59 Last Admin: 03/03/17 09:47 Dose: 1 applic - Objective Vital Signs: Vital Signs Temperature 98.8 F 03/03/17 16:00 Pulse Rate 95 H 03/03/17 19:00 Respiratory Rate 26 H 03/03/17 19:00 Blood Pressure 119/69 03/03/17 19:00 O2 Sat by Pulse Oximetry (%) 100 03/03/17 20:20 Constitutional: Yes: Well Nourished HENT: Yes: WNL Neck: Yes: WNL, Supple Cardiovascular: Yes: WNL, Regular Rate and Rhythm Respiratory: Yes: WNL, Regular, CTA Bilaterally Gastrointestinal: Yes: WNL, Normal Bowel Sounds, Soft Edema: No Labs: CBC, BMP 03/03/17 05:15 03/03/17 05:15 INR, PTT INR 1.20 (0.82-1.09) H 03/01/17 08:30 Problem List - Problems (1) Altered mental state Assessment/Plan: As per neuro W/u in progress Code(s): R41.82 - ALTERED MENTAL STATUS, UNSPECIFIED (2) Sepsis Assessment/Plan: IV antibxs stopped as per ID WBC normal Cont to monitor Code(s): A41.9 - SEPSIS, UNSPECIFIED ORGANISM (3) Lupus (systemic lupus erythematosus) Assessment/Plan: Pt started on prednisone Code(s): M32.9 - SYSTEMIC LUPUS ERYTHEMATOSUS, UNSPECIFIED (4) Respiratory failure Assessment/Plan: S/P Intubation due to respiratory failure Resolved Code(s): J96.90 - RESPIRATORY FAILURE, UNSP, UNSP W HYPOXIA OR HYPERCAPNIA Qualifiers: Chronicity: acute
[2017-03-03] MEDS: CHLORHEXIDINE GLUCONATE 4% CLEANSER FOR DECOLONIZATION TP SCH (22:50)
[2017-03-04] MEDS: PIPERACILLIN/TAZOB 3.375 GM 50 ML IVPB SCH ×2 (03:00→10:36)
[2017-03-04 06:10] LABS: BASOPHIL 0.1 % (0-2.0); MCH 23.8 pg (25.7-33.7); MCHC 32.5 g/dl (32.0-36.0); MEAN CELL VOLUME 73.2 fl (80-96); NEUTROPHILS 72.5 % (42.8-82.8); RDW 22.1 % (11.6-15.6); WHITE BLOOD COUNT 8.2 K/mm3 (4.0-10.0)
[2017-03-04 06:33] LABS: ALBUMIN 2.2 g/dl (3.4-5.0); ANION GAP 5 (8-16); BILIRUBIN,TOTAL 0.3 mg/dL (0.2-1.0); CALCIUM 7.6 mg/dL (8.5-10.1); CO2 27 mmol/L (21-32); CREATININE 0.6 mg/dL (0.55-1.02); GLUCOSE,RANDOM 144 mg/dL (74-106); PHOSPHOROUS 2.2 mg/dL (2.5-4.9); SGOT/AST 137 U/L (15-37); SGPT/ALT 50 U/L (12-78); TOT PROT 4.7 g/dl (6.4-8.2)
[2017-03-04 06:37] LABS: SERUM IRON 88 ug/dL (27-159); TOTAL IRON BINDING CAPACITY 256 ug/dL (250-450); UIBC 168 ug/dL (131-425)
[2017-03-04 06:42] LABS: ALK PHOS 63 U/L (45-117); THYROID STIMULATING HORMONE 1.13 uIU/ml (0.358-3.74)
[2017-03-04] MEDS: HEPARIN NA (PORCINE) 5,000 UNITS/ML 1ML VIAL SQ SCH ×3 (06:42→22:01)
[2017-03-04] MEDS: FAMOTIDINE 20 MG/50 ML IVPB 50 ML IVPB SCH (06:42)
[2017-03-04] MEDS: ALBUTEROL SO4 2.5/IPRATROPIUM 0.5 INH SOL 3 ML VIAL.NEB. NEB SCH ×3 (07:21→21:41)
--- NOTE | 2017-03-04 07:31 | PN ---
Progress Note (short form) - Note Progress Note: Chief Complaint: Events noted, notes reviewed, remains extubated awake and alert more communicative, denies any chest pain or dyspnea, sinus rhythm is noted History of Present Illness: Seen and examined in the ICU. Events noted, notes reviewed, remains extubated awake and alert more communicative, denies any chest pain or dyspnea, sinus rhythm is noted As outlined in yesterday's Echocardiography report noted sub-optimal study, recommend repeat TTE prior to planning STEFANIA since patient is currently extubated - Current Medication List Current Medications Acetaminophen (Tylenol -) 650 mg PO Q6H PRN PRN Reason: FEVER OR PAIN Last Admin: 03/01/17 22:58 Dose: 650 mg Albuterol/Ipratropium (Duoneb -) 1 amp NEB TIDR [facility] Last Admin: 03/04/17 07:21 Dose: 1 amp Bacitracin (Bacitracin -) 1 applic TP BID [facility] Last Admin: 03/03/17 22:49 Dose: 1 applic Chlorhexidine Gluconate (Peridex -) 15 ml MM BID [facility] Last Admin: 03/03/17 22:50 Dose: Not Given Chlorhexidine Gluconate (Hibiclens For Decolonization -) 1 applic TP HS [facility] Last Admin: 03/03/17 22:50 Dose: 1 applic Collagenase (Santyl -) 1 applic TP DAILY [facility] Last Admin: 03/03/17 09:49 Dose: 1 applic Heparin Sodium (Porcine) (Heparin -) 5,000 unit SQ TID [facility] Last Admin: 03/04/17 06:42 Dose: 5,000 unit Famotidine/Sodium Chloride (Pepcid 20 Mg Premixed Ivpb -) 50 mls @ 100 mls/hr IVPB DAILY@0600 [facility] Last Admin: 03/04/17 06:42 Dose: 100 mls/hr Piperacillin Sod/Tazobactam Sod (Zosyn 3.375gm Ivpb (Pre-Docked)) 50 mls @ 100 mls/hr IVPB Q8H-IV [facility]I PRN Reason: Protocol Last Admin: 03/04/17 03:00 Dose: 100 mls/hr Dextrose/Sodium Chloride (D5-1/3ns -) 500 mls @ 100 mls/hr IV ASDIR [facility] Last Admin: 03/03/17 12:00 Dose: 100 mls/hr Mupirocin (Bactroban Ointment (For Decolonization) -) 1 applic NS BID [facility] Stop: 03/07/17 21:59 Last Admin: 03/03/17 22:49 Dose: 1 applic Review of Systems - Review of Systems Constitutional: no symptoms reported Respiratory: denies: Cough or Sputum Production Cardiovascular: as noted above Gastrointestinal: denies Nausea, Vomiting, Diarrhea, Constipation or Abdominal Pain Genitourinary: No symptoms reported Musculoskeletal: No symptoms reported Endocrine: No symptoms reported - Objective Vital Signs: Last Vital Signs Temp Pulse Resp BP Pulse Ox 99.6 F 83 22 117/72 100 03/04/17 02:00 03/04/17 06:00 03/04/17 06:00 03/04/17 06:00 03/03/17 20:20 Intake & Output 03/01/17 03/02/17 03/03/17 03/04/17 23:59 23:59 23:59 23:59 Intake Total 3395 3660 1350 1250 Output Total 685 517 0492 800 Balance 2695 3060 -1250 450 Weight 164 lb 2 oz 168 lb 13.985 oz 169 lb 5.04 oz 175 lb 4.28 oz Constitutional: No Distress Neck: Supple Negative JVD Cardiovascular: S1 S2 Regular Rate and Rhythm No Murmurs, Clicks or Gallops Respiratory: Diminished Breath Sounds at the Bases Bilaterally Gastrointestinal: Soft Benign Normal Bowel Sounds Ext: Trace Edema Labs: CBC, BMP 03/04/17 05:15 03/04/17 05:15 Assessment/Plan ASSESSMENT: 1. Post respiratory failure, extubation, toxic metabolic encephalopathy, possible drug overdose 2. Sepsis syndrome, resolved 3. Abnormal echocardiogram, LV dyfunction, RV dyfunction, pulmonary HTN, possible vegitation (sub-optimal study) 4. History of Lupus 5. Acute on chronic renal insufficiency, pre-renal azotemia, resolved 6. Hyperglycemia 7. Anemia PLAN: 1. Antibiotics as per the primary team 2. DVT prophylaxis 3. Neurological evaluation as planned for the above noted persistent encephalopathy 4. Repeat trans-thoracic echocardiography since patient is extubated to reassess the above noted pathologies Nuvia Kelly MD
--- NOTE | 2017-03-04 09:31 | PN ---
Progress Note (short form) - Note Progress Note: PULMONARY/CCM Pt seen and examined in the ICU. Remains alert, slow to respond but appropriate , follows commands. No further fevers. Last Vital Signs Temp Pulse Resp BP Pulse Ox 99.6 F 84 22 118/64 100 03/04/17 02:00 03/04/17 08:00 03/04/17 08:00 03/04/17 08:00 03/03/17 20:20 Intake & Output 03/01/17 03/02/17 03/03/17 03/04/17 23:59 23:59 23:59 23:59 Intake Total 3395 3660 1350 1250 Output Total 510 821 6854 800 Balance 2695 3060 -1250 450 Weight 164 lb 2 oz 168 lb 13.985 oz 169 lb 5.04 oz 175 lb 4.28 oz Gen: alert, awake Heart: RRR Lung: decreased breath sounds at the bases Abd: soft, nontender Ext: no edema CBC, BMP 03/04/17 05:15 03/04/17 05:15 Active Medications Acetaminophen (Tylenol -) 650 mg PO Q6H PRN PRN Reason: FEVER OR PAIN Last Admin: 03/01/17 22:58 Dose: 650 mg Albuterol/Ipratropium (Duoneb -) 1 amp NEB TIDR [facility] Last Admin: 03/04/17 07:21 Dose: 1 amp Bacitracin (Bacitracin -) 1 applic TP BID [facility] Last Admin: 03/03/17 22:49 Dose: 1 applic Chlorhexidine Gluconate (Peridex -) 15 ml MM BID [facility] Last Admin: 03/03/17 22:50 Dose: Not Given Chlorhexidine Gluconate (Hibiclens For Decolonization -) 1 applic TP HS [facility] Last Admin: 03/03/17 22:50 Dose: 1 applic Collagenase (Santyl -) 1 applic TP DAILY [facility] Last Admin: 03/03/17 09:49 Dose: 1 applic Heparin Sodium (Porcine) (Heparin -) 5,000 unit SQ TID [facility] Last Admin: 03/04/17 06:42 Dose: 5,000 unit Famotidine/Sodium Chloride (Pepcid 20 Mg Premixed Ivpb -) 50 mls @ 100 mls/hr IVPB DAILY@0600 [facility] Last Admin: 03/04/17 06:42 Dose: 100 mls/hr Piperacillin Sod/Tazobactam Sod (Zosyn 3.375gm Ivpb (Pre-Docked)) 50 mls @ 100 mls/hr IVPB Q8H-IV [facility] PRN Reason: Protocol Last Admin: 03/04/17 03:00 Dose: 100 mls/hr Mupirocin (Bactroban Ointment (For Decolonization) -) 1 applic NS BID [facility] Stop: 03/07/17 21:59 Last Admin: 03/03/17 22:49 Dose: 1 applic A/P Altered Mental Status improving Acute Respiratory Failure r/o Drug Overdose Acute Kidney Injury Lupus Hypernatremia improving - on empiric antibiotics - monitor urine output, creatinine - will place back on home prednisone dose for her lupus - add on barbituate level - PO as tolerated - DVT prophylaxis - rehab/PT - can monitor on floor
[2017-03-04 10:18] LABS: MEAN PLT VOLUME 12.9 fl (7.5-11.1); PLATELET COUNT 181 K/MM3 (134-434); PLATELET ESTIMATE ADEQUATE (NORMAL)
[2017-03-04] MEDS: predniSONE 10 MG TABLET (UD) PO SCH (10:36)
[2017-03-04] MEDS: COLLAGENASE CLOSTRIDIUM HIST. 30 GRAMS TUBE TP SCH (10:38)
[2017-03-04] MEDS: MUPIROCIN 2% TOPICAL OINTMENT FOR DECOLONIZATION NS SCH ×2 (10:38→22:01)
[2017-03-04] MEDS: BACITRACIN 15 GM TUBE TOPICAL OINTMENT TP SCH ×2 (10:39→22:01)
[2017-03-04] MEDS: CHLORHEXIDINE GLUCONATE 0.12% 15ML CUP MM SCH ×2 (10:40→22:02)
--- NOTE | 2017-03-04 14:19 | PN ---
Progress Note, Physician History of Present Illness: patient doing much better awake and alert - Current Medication List Current Medications: Active Medications Acetaminophen (Tylenol -) 650 mg PO Q6H PRN PRN Reason: FEVER OR PAIN Last Admin: 03/01/17 22:58 Dose: 650 mg Albuterol/Ipratropium (Duoneb -) 1 amp NEB TIDR [facility] Last Admin: 03/04/17 07:21 Dose: 1 amp Bacitracin (Bacitracin -) 1 applic TP BID [facility] Last Admin: 03/04/17 10:39 Dose: 1 applic Chlorhexidine Gluconate (Peridex -) 15 ml MM BID [facility] Last Admin: 03/04/17 10:40 Dose: Not Given Chlorhexidine Gluconate (Hibiclens For Decolonization -) 1 applic TP HS [facility] Last Admin: 03/03/17 22:50 Dose: 1 applic Collagenase (Santyl -) 1 applic TP DAILY [facility] Last Admin: 03/04/17 10:38 Dose: 1 applic Heparin Sodium (Porcine) (Heparin -) 5,000 unit SQ TID [facility] Last Admin: 03/04/17 06:42 Dose: 5,000 unit Famotidine/Sodium Chloride (Pepcid 20 Mg Premixed Ivpb -) 50 mls @ 100 mls/hr IVPB DAILY@0600 [facility] Last Admin: 03/04/17 06:42 Dose: 100 mls/hr Piperacillin Sod/Tazobactam Sod (Zosyn 3.375gm Ivpb (Pre-Docked)) 50 mls @ 100 mls/hr IVPB Q8H-IV [facility] PRN Reason: Protocol Last Admin: 03/04/17 10:36 Dose: 100 mls/hr Mupirocin (Bactroban Ointment (For Decolonization) -) 1 applic NS BID [facility] Stop: 03/07/17 21:59 Last Admin: 03/04/17 10:38 Dose: 1 applic Prednisone (Deltasone -) 10 mg PO DAILY [facility] Last Admin: 03/04/17 10:36 Dose: 10 mg - Objective Vital Signs: Vital Signs Temperature 99.7 F H 03/04/17 13:09 Pulse Rate 86 03/04/17 13:05 Respiratory Rate 22 03/04/17 13:05 Blood Pressure 105/66 03/04/17 13:05 O2 Sat by Pulse Oximetry (%) 100 03/04/17 11:10 Constitutional: Yes: No Distress, Calm Eyes: Yes: Conjunctiva Clear Cardiovascular: Yes: Regular Rate and Rhythm Respiratory: Yes: Regular, CTA Bilaterally Gastrointestinal: Yes: Normal Bowel Sounds, Soft Musculoskeletal: Yes: WNL Extremities: Yes: WNL Neurological: Yes: Alert, Oriented Psychiatric: Yes: Alert, Oriented Labs: CBC, BMP 03/04/17 05:15 03/04/17 05:15 INR, PTT INR 1.20 (0.82-1.09) H 03/01/17 08:30 Assessment/Plan Problem List - Problems (1) Overdose Code(s): T50.901A - POISONING BY UNSP DRUG/MEDS/BIOL SUBST, ACCIDENTAL, INIT Qualifiers: Encounter type: initial encounter Injury intent: undetermined intent Qualified Code(s): T50.904A - Poisoning by unspecified drugs, medicaments and biological substances, undetermined, initial encounter (2) Polypharmacy Code(s): Z79.899 - OTHER USP (CURRENT) DRUG THERAPY (3) Unresponsive Code(s): R41.89 - OTH SYMPTOMS AND SIGNS W COGNITIVE FUNCTIONS AND AWARENESS (4) TRENT (acute kidney injury) Code(s): N17.9 - ACUTE KIDNEY FAILURE, UNSPECIFIED (5) Rhabdomyolysis Code(s): M62.82 - RHABDOMYOLYSIS (6) Respiratory failure Code(s): J96.90 - RESPIRATORY FAILURE, UNSP, UNSP W HYPOXIA OR HYPERCAPNIA asp pna leukocytosis uti wbc marginally low plan will stop iv abx continue current mgmt rest continue as per icu wbc normal cc time 40 min
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
[2017-03-04] MEDS: CHLORHEXIDINE GLUCONATE 4% CLEANSER FOR DECOLONIZATION TP SCH (22:01)
--- NOTE | 2017-03-04 23:45 | PN ---
Progress Note, Physician History of Present Illness: Pt awake but at times does not answer appropriately - Current Medication List Current Medications: Active Medications Acetaminophen (Tylenol -) 650 mg PO Q6H PRN PRN Reason: FEVER OR PAIN Last Admin: 03/01/17 22:58 Dose: 650 mg Albuterol/Ipratropium (Duoneb -) 1 amp NEB TIDR [facility] Last Admin: 03/04/17 21:41 Dose: 1 amp Bacitracin (Bacitracin -) 1 applic TP BID [facility] Last Admin: 03/04/17 22:01 Dose: 1 applic Chlorhexidine Gluconate (Peridex -) 15 ml MM BID [facility] Last Admin: 03/04/17 22:02 Dose: Not Given Chlorhexidine Gluconate (Hibiclens For Decolonization -) 1 applic TP HS [facility] Last Admin: 03/04/17 22:01 Dose: 1 applic Collagenase (Santyl -) 1 applic TP DAILY [facility] Last Admin: 03/04/17 10:38 Dose: 1 applic Heparin Sodium (Porcine) (Heparin -) 5,000 unit SQ TID [facility] Last Admin: 03/04/17 22:01 Dose: 5,000 unit Famotidine/Sodium Chloride (Pepcid 20 Mg Premixed Ivpb -) 50 mls @ 100 mls/hr IVPB DAILY@0600 [facility] Last Admin: 03/04/17 06:42 Dose: 100 mls/hr Mupirocin (Bactroban Ointment (For Decolonization) -) 1 applic NS BID [facility] Stop: 03/07/17 21:59 Last Admin: 03/04/17 22:01 Dose: 1 applic Prednisone (Deltasone -) 10 mg PO DAILY [facility] Last Admin: 03/04/17 10:36 Dose: 10 mg - Objective Vital Signs: Vital Signs Temperature 99.2 F 03/04/17 22:00 Pulse Rate 84 03/04/17 22:00 Respiratory Rate 12 03/04/17 22:00 Blood Pressure 118/74 03/04/17 22:00 O2 Sat by Pulse Oximetry (%) 100 03/04/17 21:00 Constitutional: Yes: Well Nourished Neck: Yes: WNL, Supple Cardiovascular: Yes: WNL, Regular Rate and Rhythm Respiratory: Yes: WNL, Regular, CTA Bilaterally Gastrointestinal: Yes: WNL, Normal Bowel Sounds, Soft Edema: No Labs: CBC, BMP 03/04/17 05:15 03/04/17 05:15 INR, PTT INR 1.20 (0.82-1.09) H 03/01/17 08:30 Problem List - Problems (1) Altered mental state Assessment/Plan: As per neuro W/u in progress Code(s): R41.82 - ALTERED MENTAL STATUS, UNSPECIFIED (2) Lupus (systemic lupus erythematosus) Assessment/Plan: Cont on prednisone Code(s): M32.9 - SYSTEMIC LUPUS ERYTHEMATOSUS, UNSPECIFIED (3) Respiratory failure Assessment/Plan: S/P Intubation due to respiratory failure Resolved Code(s): J96.90 - RESPIRATORY FAILURE, UNSP, UNSP W HYPOXIA OR HYPERCAPNIA Qualifiers: Chronicity: acute (4) Sepsis Code(s): A41.9 - SEPSIS, UNSPECIFIED ORGANISM
[2017-03-05] MEDS: HEPARIN NA (PORCINE) 5,000 UNITS/ML 1ML VIAL SQ SCH ×3 (05:17→21:58)
[2017-03-05] MEDS: FAMOTIDINE 20 MG/50 ML IVPB 50 ML IVPB SCH (05:17)
[2017-03-05] MEDS: ALBUTEROL SO4 2.5/IPRATROPIUM 0.5 INH SOL 3 ML VIAL.NEB. NEB SCH ×2 (06:00→13:58)
[2017-03-05 06:01] LABS: BASOPHIL 0.3 % (0-2.0); EOSINOPHIL 3.5 % (0-4.5); MCH 22.6 pg (25.7-33.7); MCHC 30.7 g/dl (32.0-36.0); MEAN CELL VOLUME 73.5 fl (80-96); NEUTROPHILS 63.5 % (42.8-82.8); RDW 22.1 % (11.6-15.6); WHITE BLOOD COUNT 6.9 K/mm3 (4.0-10.0)
[2017-03-05 06:42] LABS: CALCIUM 7.9 mg/dL (8.5-10.1)
[2017-03-05 06:45] LABS: ALBUMIN 2.5 g/dl (3.4-5.0); ALK PHOS 63 U/L (45-117); ANION GAP 8 (8-16); BILIRUBIN,TOTAL 0.2 mg/dL (0.2-1.0); CO2 27 mmol/L (21-32); CREATININE 0.6 mg/dL (0.55-1.02); GLUCOSE,RANDOM 166 mg/dL (74-106); MAGNESIUM 1.9 mg/dL (1.8-2.4); PHOSPHOROUS 1.9 mg/dL (2.5-4.9); SGOT/AST 150 U/L (15-37); SGPT/ALT 70 U/L (12-78); TOT PROT 4.8 g/dl (6.4-8.2)
--- NOTE | 2017-03-05 06:48 | PN ---
Progress Note (short form) - Note Progress Note: Chief Complaint: Events noted, notes reviewed, awake and alert, denies any chest pain or dyspnea, sinus rhythm is noted History of Present Illness: Seen and examined in the ICU. Events noted, notes reviewed, awake and alert, denies any chest pain or dyspnea, sinus rhythm is noted As outlined in prior notes Echocardiography report noted sub-optimal study, recommend repeat TTE prior to planning STEFANIA since patient is currently extubated - Current Medication List Current Medications Acetaminophen (Tylenol -) 650 mg PO Q6H PRN PRN Reason: FEVER OR PAIN Last Admin: 03/01/17 22:58 Dose: 650 mg Albuterol/Ipratropium (Duoneb -) 1 amp NEB TIDR [facility] Last Admin: 03/05/17 06:00 Dose: 1 amp Bacitracin (Bacitracin -) 1 applic TP BID [facility] Last Admin: 03/04/17 22:01 Dose: 1 applic Chlorhexidine Gluconate (Peridex -) 15 ml MM BID [facility] Last Admin: 03/04/17 22:02 Dose: Not Given Chlorhexidine Gluconate (Hibiclens For Decolonization -) 1 applic TP HS [facility] Last Admin: 03/04/17 22:01 Dose: 1 applic Collagenase (Santyl -) 1 applic TP DAILY [facility] Last Admin: 03/04/17 10:38 Dose: 1 applic Heparin Sodium (Porcine) (Heparin -) 5,000 unit SQ TID [facility] Last Admin: 03/05/17 05:17 Dose: 5,000 unit Famotidine/Sodium Chloride (Pepcid 20 Mg Premixed Ivpb -) 50 mls @ 100 mls/hr IVPB DAILY@0600 [facility] Last Admin: 03/05/17 05:17 Dose: 100 mls/hr Mupirocin (Bactroban Ointment (For Decolonization) -) 1 applic NS BID [facility] Stop: 03/07/17 21:59 Last Admin: 03/04/17 22:01 Dose: 1 applic Prednisone (Deltasone -) 10 mg PO DAILY [facility] Last Admin: 03/04/17 10:36 Dose: 10 mg Review of Systems - Review of Systems Constitutional: no symptoms reported Respiratory: denies: Cough or Sputum Production Cardiovascular: as noted above Gastrointestinal: denies Nausea, Vomiting, Diarrhea, Constipation or Abdominal Pain Genitourinary: No symptoms reported Musculoskeletal: No symptoms reported Endocrine: No symptoms reported - Objective Vital Signs: Last Vital Signs Temp Pulse Resp BP Pulse Ox 99.2 F 87 18 107/71 100 03/05/17 06:00 03/05/17 06:00 03/05/17 06:00 03/05/17 06:00 03/04/17 21:00 Intake & Output 03/02/17 03/03/17 03/04/17 03/05/17 23:59 23:59 23:59 23:59 Intake Total 3660 1350 1890 530 Output Total 600 2600 2050 900 Balance 3060 -1250 -160 -370 Weight 168 lb 13.985 oz 169 lb 5.04 oz 175 lb 4.28 oz 174 lb 6.4 oz Constitutional: No Distress Neck: Supple Negative JVD Cardiovascular: S1 S2 Regular Rate and Rhythm No Murmurs, Clicks or Gallops Respiratory: Diminished Breath Sounds at the Bases Bilaterally Gastrointestinal: Soft Benign Normal Bowel Sounds Ext: Trace Edema Labs: CBC, BMP 03/05/17 05:00 BMP pending from this AM Assessment/Plan ASSESSMENT: 1. Post respiratory failure, extubated, persistent toxic metabolic encephalopathy, possible drug overdose 2. Sepsis syndrome, resolved 3. Abnormal echocardiogram, LV dyfunction, RV dyfunction, pulmonary HTN, possible vegitation (sub-optimal study), repeat study pending 4. History of Lupus 5. Acute on chronic renal insufficiency, pre-renal azotemia, resolved 6. Anemia PLAN: 1. DVT prophylaxis 2. Neurological evaluation as planned for the above noted persistent encephalopathy 3. Repeat trans-thoracic echocardiography since patient is extubated to reassess the above noted pathologies prior to proceeding with STEFANIA Nuvia Kelly MD
[2017-03-05 06:59] LABS: PLATELET COUNT 133 K/MM3 (134-434)
[2017-03-05 07:00] LABS: ANISOCYTOSIS 2+; HYPOCHROMIA 1+; MICROCYTOSIS 1+; PLATELET ESTIMATE SLT DECREASED (NORMAL)
[2017-03-05] MEDS: NAPH,MB-DB/K PH,MBDB POWDER PACKET PO SCH ×3 (08:53→21:58)
[2017-03-05] MEDS: predniSONE 10 MG TABLET (UD) PO SCH (10:23)
[2017-03-05] MEDS: CHLORHEXIDINE GLUCONATE 0.12% 15ML CUP MM SCH ×2 (10:23→22:06)
[2017-03-05] MEDS: MUPIROCIN 2% TOPICAL OINTMENT FOR DECOLONIZATION NS SCH ×2 (10:23→22:06)
[2017-03-05] MEDS: COLLAGENASE CLOSTRIDIUM HIST. 30 GRAMS TUBE TP SCH (10:25)
[2017-03-05] MEDS: BACITRACIN 15 GM TUBE TOPICAL OINTMENT TP SCH ×2 (10:26→22:02)
--- NOTE | 2017-03-05 10:47 | PN ---
Progress Note (short form) - Note Progress Note: Neurology History of Present Illness 46 year old female presented to ER completely unresponsive, Rossy coma scale of 3, who was "found down" possibly for several days and last known well two days ago. Found in her own urine and feces without explanation of why. Concern for airway protection and ER intubated and put on mechanical ventilation in the ER. CT head completed and did not show acute changes. UTox positive for benzo, barbiturates, and opiods. Also with WBC of 18. Concern for drug overdose, in ICU in close monitoring, Ct head completed and did not show signs of anoxic brain injury, and patient extubated over the weekend. Now more awake, alert, responsive, tracking examiner. MRI brain and C spine ordered and EEG ordered over weekend. Active Medications Acetaminophen (Tylenol -) 650 mg PO Q6H PRN PRN Reason: FEVER OR PAIN Last Admin: 03/01/17 22:58 Dose: 650 mg Albuterol/Ipratropium (Duoneb -) 1 amp NEB TIDR [facility] Last Admin: 03/05/17 06:00 Dose: 1 amp Bacitracin (Bacitracin -) 1 applic TP BID [facility] Last Admin: 03/05/17 10:26 Dose: 1 applic Chlorhexidine Gluconate (Peridex -) 15 ml MM BID [facility] Last Admin: 03/05/17 10:23 Dose: Not Given Chlorhexidine Gluconate (Hibiclens For Decolonization -) 1 applic TP HS [facility] Last Admin: 03/04/17 22:01 Dose: 1 applic Collagenase (Santyl -) 1 applic TP DAILY [facility] Last Admin: 03/05/17 10:25 Dose: 1 applic Heparin Sodium (Porcine) (Heparin -) 5,000 unit SQ TID [facility] Last Admin: 03/05/17 05:17 Dose: 5,000 unit Famotidine/Sodium Chloride (Pepcid 20 Mg Premixed Ivpb -) 50 mls @ 100 mls/hr IVPB DAILY@0600 [facility] Last Admin: 03/05/17 05:17 Dose: 100 mls/hr Mupirocin (Bactroban Ointment (For Decolonization) -) 1 applic NS BID [facility] Stop: 03/07/17 21:59 Last Admin: 03/05/17 10:23 Dose: 1 applic Potassium Phos/Sodium Phos (Phos-Nak Packet -) 1 packet PO TID [facility] Last Admin: 03/05/17 08:53 Dose: 1 packet Prednisone (Deltasone -) 10 mg PO DAILY [facility] Last Admin: 03/05/17 10:23 Dose: 10 mg *Physical Exam Vital Signs Period Temp Pulse Resp BP Sys/Pena Pulse Ox Last 24 Hr 98.8 F-100 F 84-104 12-23 105-143/65-78 100-100 Awake, tracking examiner, verbal and cooperative but confused Squeezing hand to command, raising arms or legs to command but with proximal muscle weaknes Intact to tactile stimulation Finger to nose intact Lungs sounds mechanical RRR Abdomen soft Gait deferred CBCD WBC 6.9 K/mm3 (4.0-10.0) 03/05/17 05:00 RBC 3.67 M/mm3 (3.60-5.2) 03/05/17 05:00 Hgb 8.3 GM/dL (10.7-15.3) L 03/05/17 05:00 Hct 27.0 % (32.4-45.2) L 03/05/17 05:00 MCV 73.5 fl (80-96) L 03/05/17 05:00 MCHC 30.7 g/dl (32.0-36.0) L 03/05/17 05:00 RDW 22.1 % (11.6-15.6) H 03/05/17 05:00 Plt Count 133 K/MM3 (134-434) L D 03/05/17 05:00 MPV 10.0 fl (7.5-11.1) D 03/05/17 05:00 CMP Sodium 144 mmol/L (136-145) 03/05/17 05:00 Potassium 3.1 mmol/L (3.5-5.1) L 03/05/17 05:00 Chloride 109 mmol/L (98-107) H 03/05/17 05:00 Carbon Dioxide 27 mmol/L (21-32) 03/05/17 05:00 Anion Gap 8 (8-16) 03/05/17 05:00 BUN 7 mg/dL (7-18) 03/05/17 05:00 Creatinine 0.6 mg/dL (0.55-1.02) 03/05/17 05:00 Creat Clearance w eGFR > 60 (>60) 03/05/17 05:00 Calcium 7.9 mg/dL (8.5-10.1) L 03/05/17 05:00 Total Bilirubin 0.2 mg/dL (0.2-1.0) D 03/05/17 05:00 AST 150 U/L (15-37) H 03/05/17 05:00 ALT 70 U/L (12-78) D 03/05/17 05:00 Alkaline Phosphatase 63 U/L (45-117) 03/05/17 05:00 Total Protein 4.8 g/dl (6.4-8.2) L 03/05/17 05:00 Albumin 2.5 g/dl (3.4-5.0) L 03/05/17 05:00 CT head reviewed Plan: 46 year old female presented to ER completely unresponsive, Rossy coma scale of 3, who was "found down" possibly for several days and last known well two days ago. Found in her own urine and feces without explanation of why. Concern for airway protection and ER intubated and put on mechanical ventilation, under close observation in the ICU. CT head completed and did not show acute changes. Repeat CT head without acute changes, did not have signs of anoxic brain injury UTox positive for benzo, barbiturates, and opiods. Concern for drug overdose MRI brain and C spine pending EEG Hydration as needed Psych consult hallucinations Weaned from mechanical vent No evidence of seizures Getting close monitoring in ICU Mental status improving but not at baseline Total Critical Care Time (minutes): 35
--- NOTE | 2017-03-05 12:18 | PN ---
Teaching Attending Note Name of Resident: Krishna De León ATTENDING PHYSICIAN STATEMENT I saw and evaluated the patient. I reviewed the resident's note and discussed the case with the resident. I agree with the resident's findings and plan as documented. SUBJECTIVE: Pt seen and examined in the ICU. Mental status continues to improve but remains confused. Oriented to self but not to place or time. OBJECTIVE: Last Vital Signs Temp Pulse Resp BP Pulse Ox 98.8 F 104 H 22 135/88 100 03/05/17 08:00 03/05/17 10:42 03/05/17 10:00 03/05/17 10:00 03/05/17 10:42 Intake & Output 03/02/17 03/03/17 03/04/17 03/05/17 23:59 23:59 23:59 23:59 Intake Total 3660 1350 1890 530 Output Total 600 2600 2050 900 Balance 3060 -1250 -160 -370 Weight 168 lb 13.985 oz 169 lb 5.04 oz 175 lb 4.28 oz 174 lb 6.4 oz Gen: NAD but confused Heart: tachycardic, regular Lung: decreased breath sounds at the bases Abd: soft, nontender Ext: + edema CBC, BMP 03/05/17 05:00 03/05/17 05:00 Active Medications Acetaminophen (Tylenol -) 650 mg PO Q6H PRN PRN Reason: FEVER OR PAIN Last Admin: 03/01/17 22:58 Dose: 650 mg Albuterol/Ipratropium (Duoneb -) 1 amp NEB TIDR [facility] Last Admin: 03/05/17 06:00 Dose: 1 amp Bacitracin (Bacitracin -) 1 applic TP BID [facility] Last Admin: 03/05/17 10:26 Dose: 1 applic Chlorhexidine Gluconate (Peridex -) 15 ml MM BID [facility] Last Admin: 03/05/17 10:23 Dose: Not Given Chlorhexidine Gluconate (Hibiclens For Decolonization -) 1 applic TP HS [facility] Last Admin: 03/04/17 22:01 Dose: 1 applic Collagenase (Santyl -) 1 applic TP DAILY [facility] Last Admin: 03/05/17 10:25 Dose: 1 applic Heparin Sodium (Porcine) (Heparin -) 5,000 unit SQ TID [facility] Last Admin: 03/05/17 05:17 Dose: 5,000 unit Famotidine/Sodium Chloride (Pepcid 20 Mg Premixed Ivpb -) 50 mls @ 100 mls/hr IVPB DAILY@0600 [facility] Last Admin: 03/05/17 05:17 Dose: 100 mls/hr Mupirocin (Bactroban Ointment (For Decolonization) -) 1 applic NS BID [facility] Stop: 03/07/17 21:59 Last Admin: 03/05/17 10:23 Dose: 1 applic Potassium Phos/Sodium Phos (Phos-Nak Packet -) 1 packet PO TID [facility] Last Admin: 03/05/17 08:53 Dose: 1 packet Prednisone (Deltasone -) 10 mg PO DAILY [facility] Last Admin: 03/05/17 10:23 Dose: 10 mg ASSESSMENT AND PLAN: Altered Mental Status improving Acute Respiratory Failure r/o Drug Overdose Acute Kidney Injury Lupus Hypernatremia improving - for MRI brain - s/p empiric antibiotics - monitor urine output, creatinine - replete lytes - continue home prednisone dose for her lupus - add on barbituate level - PO as tolerated - DVT prophylaxis - rehab/PT - can monitor on telemetry
--- NOTE | 2017-03-05 13:32 | PN ---
Progress Note, Physician History of Present Illness: 46 yo F with h/o lupus found unresponsive (02/26) with 3/4 SIRS criteria on admission and TRENT admitted to ICU for altered mental status and s/p intubation. Patient extubated (03/02). Sepsis has since resolved following admission to ICU. No acute events overnight. Patient complains of systemic diffuse pain and weakness. She states that she is tolerating normal PO intake. - Current Medication List Current Medications: Active Medications Acetaminophen (Tylenol -) 650 mg PO Q6H PRN PRN Reason: FEVER OR PAIN Last Admin: 03/01/17 22:58 Dose: 650 mg Albuterol/Ipratropium (Duoneb -) 1 amp NEB TIDR [facility] Last Admin: 03/05/17 06:00 Dose: 1 amp Bacitracin (Bacitracin -) 1 applic TP BID [facility] Last Admin: 03/05/17 10:26 Dose: 1 applic Chlorhexidine Gluconate (Peridex -) 15 ml MM BID [facility] Last Admin: 03/05/17 10:23 Dose: Not Given Chlorhexidine Gluconate (Hibiclens For Decolonization -) 1 applic TP HS [facility] Last Admin: 03/04/17 22:01 Dose: 1 applic Collagenase (Santyl -) 1 applic TP DAILY [facility] Last Admin: 03/05/17 10:25 Dose: 1 applic Heparin Sodium (Porcine) (Heparin -) 5,000 unit SQ TID [facility] Last Admin: 03/05/17 05:17 Dose: 5,000 unit Famotidine/Sodium Chloride (Pepcid 20 Mg Premixed Ivpb -) 50 mls @ 100 mls/hr IVPB DAILY@0600 [facility] Last Admin: 03/05/17 05:17 Dose: 100 mls/hr Mupirocin (Bactroban Ointment (For Decolonization) -) 1 applic NS BID [facility] Stop: 03/07/17 21:59 Last Admin: 03/05/17 10:23 Dose: 1 applic Potassium Phos/Sodium Phos (Phos-Nak Packet -) 1 packet PO TID [facility] Last Admin: 03/05/17 08:53 Dose: 1 packet Prednisone (Deltasone -) 10 mg PO DAILY [facility] Last Admin: 03/05/17 10:23 Dose: 10 mg - Objective Vital Signs: Vital Signs Temperature 98.8 F 03/05/17 08:00 Pulse Rate 97 H 03/05/17 12:00 Respiratory Rate 23 03/05/17 12:00 Blood Pressure 133/93 03/05/17 12:00 O2 Sat by Pulse Oximetry (%) 100 03/05/17 10:42 Labs: CBC, BMP 03/05/17 05:00 03/05/17 05:00 INR, PTT INR 1.20 (0.82-1.09) H 03/01/17 08:30
--- NOTE | 2017-03-05 13:45 | PN ---
Physical Exam: SUBJECTIVE: Patient seen and examined 46 yo F with h/o lupus who presents to ICU with encephalopathy following ED admission for unresponsiveness in setting of sepsis, TRENT, and positive urine benzodiazepenes, barbiturates, and opioids. Overnight no acute events. Patient reports widespread pain and difficulty sleeping. States that she received 2 hours of sleep. she is tolerating adequate PO food intake. Complains of weakness, but reports improvement in strength. OBJECTIVE: Vital Signs Period Temp Pulse Resp BP Sys/Pena Pulse Ox Last 24 Hr 98.8 F-100 F 84-104 12-23 105-143/65-93 100-100 GENERAL: The patient is awake, alert, and oriented to person and place, in no acute distress. HEAD: Normal with no signs of trauma. EYES: PERRL, extraocular movements intact, sclera anicteric, conjunctiva clear. No ptosis. ENT: Ears normal, nares patent, oropharynx clear without exudates, moist mucous membranes. NECK: Trachea midline, full range of motion, supple. LUNGS: Breath sounds equal, clear to auscultation bilaterally, no wheezes, no crackles, no accessory muscle use. HEART: Regular rate and rhythm, S1, S2 without murmur, rub or gallop. ABDOMEN: Soft, nontender, nondistended, normoactive bowel sounds, no guarding, no rebound, no hepatosplenomegaly, no masses. EXTREMITIES: 2+ pulses, warm, well-perfused, no edema. NEUROLOGICAL: Cranial nerves II through XII grossly intact. gait not observed. MSK: 2/5 strength in BL LE. 3/5 strength in BL UE. PSYCH:alert and oriented to person and place.Patient exhibiting word findings difficulties and loose associations. Normal mood, normal affect. SKIN: Warm, dry, normal turgor, no rashes or lesions noted Laboratory Results - last 24 hr 03/05/17 03/05/17 05:00 05:00 WBC 6.9 RBC 3.67 Hgb 8.3 L Hct 27.0 L MCV 73.5 L MCH 22.6 L MCHC 30.7 L RDW 22.1 H Plt Count 133 L D MPV 10.0 D Neutrophils % 63.5 Lymphocytes % 17.7 D Monocytes % 15.0 H Eosinophils % 3.5 Basophils % 0.3 Hypochromia 1+ Platelet Estimate Slt decreased Anisocytosis 2+ Microcytosis 1+ Sodium 144 Potassium 3.1 L Chloride 109 H Carbon Dioxide 27 Anion Gap 8 BUN 7 Creatinine 0.6 Creat Clearance w eGFR > 60 Random Glucose 166 H Calcium 7.9 L Phosphorus 1.9 L Magnesium 1.9 Total Bilirubin 0.2 D AST 150 H ALT 70 D Alkaline Phosphatase 63 Total Protein 4.8 L Albumin 2.5 L Active Medications Generic Name Dose Route Start Last Admin Trade Name Freq PRN Reason Stop Dose Admin Acetaminophen 650 mg 03/01/17 22:52 03/01/17 22:58 Tylenol - PO 650 mg Q6H PRN Administration FEVER OR PAIN Albuterol/Ipratropium 1 amp 02/28/17 14:00 03/05/17 06:00 Duoneb - NEB 1 amp TIDR [facility] Administration Bacitracin 1 applic 03/02/17 11:00 03/05/17 10:26 Bacitracin - TP 1 applic BID [facility] Administration Chlorhexidine Gluconate 15 ml 02/28/17 10:00 03/05/17 10:23 Peridex - MM Not Given BID [facility] Chlorhexidine Gluconate 1 applic 03/02/17 22:00 03/04/17 22:01 Hibiclens For Decolonization - TP 1 applic HS [facility] Administration Collagenase 1 applic 03/02/17 14:00 03/05/17 10:25 Santyl - TP 1 applic DAILY [facility] Administration Heparin Sodium (Porcine) 5,000 unit 02/26/17 22:00 03/05/17 05:17 Heparin - SQ 5,000 unit TID [facility] Administration Famotidine/Sodium Chloride 50 mls @ 100 mls/hr 02/27/17 06:00 03/05/17 05:17 Pepcid 20 Mg Premixed Ivpb - IVPB 100 mls/hr DAILY@0600 [facility] Administration Mupirocin 1 applic 03/02/17 22:00 03/05/17 10:23 Bactroban Ointment (For Decolonization) - NS 03/07/17 21:59 1 applic BID [facility] Administration Potassium Phos/Sodium Phos 1 packet 03/05/17 08:00 03/05/17 08:53 Phos-Nak Packet - PO 1 packet TID [facility] Administration Prednisone 10 mg 03/04/17 10:00 03/05/17 10:23 Deltasone - PO 10 mg DAILY [facility] Administration ASSESSMENT/PLAN: 46 yo F with h/o lupus who presents to ICU with encephalopathy following ED admission for unresponsiveness in setting of sepsis s/p antibiotics, TRENT, and positive urine benzodiazepenes, barbiturates, and opioids. Cardiology: Echo ( 03/05) Mild tricuspid regurgitaion and pulmonary HTN. Normal systolic function. Respiratory: - Intubated ( 02/26), and extubated (03/02) - Repeat STEFANIA to assess pathology following extubation. Neurology: Suspected encephalopathy vs seizure disorder CT Head unremarkable ( 02/26) Repeat CT head does not reveal evidence of anoxic brain injury ( 02/28) MRI MSK: Upper and lower extremity motor paresis. Rhabdo vs. myopathy Gross motor strength improving chronic steroid use [id number] ( 03/03 ) 4 limb EMG Renal: continue to monitor kidney function creatinine. Rheumatology: Continue home presdnisone 10 mg QD. Psych: alert and oriented to person and place. FEN: PO intake, phosphorus and potassium PRN, Reg diet PPx: DVT: SCD, Heparin 5000 TID GI: Famotidine QD Visit type - Emergency Visit Emergency Visit: No - New Patient This patient is new to me today: Yes Date on this admission: 03/05/17 - Critical Care Critical Care patient: Yes Total Critical Care Time (in minutes): 35 Critical Care Statement: The care of this patient involved high complexity decision making to prevent further life threatening deterioration of the patient 's condition and/or to evaluate & treat vital organ system(s) failure or risk of failure.
--- NOTE | 2017-03-05 14:46 | PN ---
Progress Note, Physician History of Present Illness: patient very confused has been having dirrhoea awake but confused - Current Medication List Current Medications: Active Medications Acetaminophen (Tylenol -) 650 mg PO Q6H PRN PRN Reason: FEVER OR PAIN Last Admin: 03/01/17 22:58 Dose: 650 mg Bacitracin (Bacitracin -) 1 applic TP BID [facility] Last Admin: 03/05/17 10:26 Dose: 1 applic Chlorhexidine Gluconate (Peridex -) 15 ml MM BID [facility] Last Admin: 03/05/17 10:23 Dose: Not Given Chlorhexidine Gluconate (Hibiclens For Decolonization -) 1 applic TP HS [facility] Last Admin: 03/04/17 22:01 Dose: 1 applic Collagenase (Santyl -) 1 applic TP DAILY [facility] Last Admin: 03/05/17 10:25 Dose: 1 applic Heparin Sodium (Porcine) (Heparin -) 5,000 unit SQ TID [facility] Last Admin: 03/05/17 13:54 Dose: 5,000 unit Famotidine/Sodium Chloride (Pepcid 20 Mg Premixed Ivpb -) 50 mls @ 100 mls/hr IVPB DAILY@0600 [facility] Last Admin: 03/05/17 05:17 Dose: 100 mls/hr Mupirocin (Bactroban Ointment (For Decolonization) -) 1 applic NS BID [facility] Stop: 03/07/17 21:59 Last Admin: 03/05/17 10:23 Dose: 1 applic Potassium Phos/Sodium Phos (Phos-Nak Packet -) 1 packet PO TID [facility] Last Admin: 03/05/17 13:56 Dose: 1 packet Prednisone (Deltasone -) 10 mg PO DAILY [facility] Last Admin: 03/05/17 10:23 Dose: 10 mg - Objective Vital Signs: Vital Signs Temperature 98.8 F 03/05/17 08:00 Pulse Rate 97 H 03/05/17 12:00 Respiratory Rate 23 03/05/17 12:00 Blood Pressure 133/93 03/05/17 12:00 O2 Sat by Pulse Oximetry (%) 100 03/05/17 10:42 Constitutional: Yes: No Distress, Calm Cardiovascular: Yes: Regular Rate and Rhythm Respiratory: Yes: Regular, Poor Air Entry Gastrointestinal: Yes: Normal Bowel Sounds, Soft Genitourinary: Yes: [place]al[place] Present Musculoskeletal: Yes: WNL Extremities: Yes: WNL Neurological: Yes: Alert, Confusion Psychiatric: Yes: Alert Labs: CBC, BMP 03/05/17 05:00 03/05/17 05:00 INR, PTT INR 1.20 (0.82-1.09) H 03/01/17 08:30 Assessment/Plan Problem List - Problems (1) Overdose Code(s): T50.901A - POISONING BY UNSP DRUG/MEDS/BIOL SUBST, ACCIDENTAL, INIT Qualifiers: Encounter type: initial encounter Injury intent: undetermined intent Qualified Code(s): T50.904A - Poisoning by unspecified drugs, medicaments and biological substances, undetermined, initial encounter (2) Polypharmacy Code(s): Z79.899 - OTHER ASSISTED (CURRENT) DRUG THERAPY (3) Unresponsive Code(s): R41.89 - OTH SYMPTOMS AND SIGNS W COGNITIVE FUNCTIONS AND AWARENESS (4) TRENT (acute kidney injury) Code(s): N17.9 - ACUTE KIDNEY FAILURE, UNSPECIFIED (5) Rhabdomyolysis Code(s): M62.82 - RHABDOMYOLYSIS (6) Respiratory failure Code(s): J96.90 - RESPIRATORY FAILURE, UNSP, UNSP W HYPOXIA OR HYPERCAPNIA asp pna leukocytosis uti plan stable off of abx if dirrhoea continues cdiff continue current mgmt rest continue as per icu cc time 40 min
--- NOTE | 2017-03-05 15:54 | CONSULT ---
Admitting History and Physical - Primary Care Physician PCP: Iliana Vivar - Admission History of Present Illness: History of Present Illness: 46 y/o woman with h/o lupus who was found unresponsive after unknown down time, suspected 2 days. Neighbors notified authorities when they had not seen her for few days and she was found down today covered in urine and feces. She was found hemodynamically stable with GCS estimated about 3. On EMS arrival she was breathing independently, satting 100% on NRB. She arrived in the ED where she was given narcan without response and was subsequently intubated. She underwent CT head which was negative. Labs notable for WBC 18, BUN/Creat 112/1.8, lactate 2.5-> 1.7, CK 956. Utox (+) for opiates, barbiturates and benzos. Collateral history from brother/pharmacy reveals that pt takes morphine, phenobarbitol, and valium in addition to prednisone 30 daily. Pt was seen by ID consult who recommended vanco/ zosyn as well as neuro consult who felt most likely drug overdose, recommended MRI when able. Pt was transferred to ICU for further work up and monitoring. Pt arrived to ICU hemodynamically stable, intubated and unresponsive, flacid though with (+) pupillary, corneal, cough reflexes. She was started on standing IVF for rhabdo and continued on vanco/ zosyn. Extubated 03/02. Pureed diet and thin liquid ordered 03/03. Selected Entries 03/03/17 03/03/17 03/03/17 02:00 06:00 10:00 Breakfast Lunch Temperature 98 F 98 F 98 F 03/03/17 03/03/17 03/04/17 13:33 16:00 02:00 Breakfast Lunch 75% Temperature 98.8 F 99.6 F 03/04/17 03/04/17 03/04/17 08:27 13:09 15:20 Breakfast 75% Lunch 0 Temperature 99.7 F H 03/04/17 03/04/17 03/05/17 21:00 22:00 04:00 Breakfast Lunch Temperature 100 F H 99.2 F 99.3 F 03/05/17 03/05/17 03/05/17 06:00 08:00 14:00 Breakfast NPO Lunch 25% Temperature 99.2 F 98.8 F 98.3 F Laboratory Tests 03/03/17 03/04/17 03/05/17 05:15 05:15 05:00 WBC 11.1 H 8.2 6.9 Altered Mental Status improving Acute Respiratory Failure r/o Drug Overdose Acute Kidney Injury Lupus Hypernatremia improving Pt seen in 423a, after transferred from ICU. Pt is verbal, hesitant, with anomia with perseveration. Some paranoid-like statements, unsure why they transferred her "from [facility]." (ICU> telemetry). Pt refusing heart monitor. Oriented to age,Trump, [address], Lupus. Mild Ataxic-like speech. Confused with some appropriate responses. History Source: Medical Record Limitations to Obtaining History: Clinical Condition, Poor Historian - Past Medical History Rheumatology: Yes: Lupus - Smoking History Smoking history: Unknown if ever smoked - Alcohol/Substance Use Hx Alcohol Use: (UNKNOWN) History of Substance Use: reports: Prescription History - Admission Reason For Visit: UNRESPONSIVE;COMA;POLYPHARMACY;DRUG OVERDOSE - Diagnostics X-ray: Report Reviewed CT Scan: Report Reviewed - General Mental Status: Awake and Alert, Able to Follow Commands, Forgetful, Intermittently Confused, Flat Affect (paranoid-like) Attention: Mild Impairment Ability to Follow Directions: Fair - Hearing Hearing: Functional Speech Evaluation - Communication Primary Language: MICRONESIAN Communication: Yes: Simple Responses Oral Expression Ability: Yes: Mild Impairment, Moderate Impairment - Speech Production Dysarthria: Yes: Ataxic (ataxic-like.) Able to Make Needs Known: Yes: Mildly Impaired, Moderately Impaired Intelligibility: Yes: WNL - Speech Characteristics Voice Loudness: Normal, Excessive Variation Voice Pitch: Yes: Normal Voice Phonatory-based Quality: Yes: Normal Speech Pattern: Impaired Speech Clarity: < 75% Nasal Resonance: Normal Articulation: Yes: Precise - Language/Auditory Comprehension Follows: Yes: 1 Stage Simple Commands Observation: Comprehends Conversational Speech: Yes, Benefits from Slow Speech: Yes, Benefits from Repetiton: Yes - Language/Verbal Expression Functional Communication Status: Yes: Mildly Impaired, Moderately Impaired - Swallow Evaluation/Bedside Assessment Current Nutritional Intake: Dysphagia Pureed, Thin Liquids Oral Secretions: Yes: WFL (has cough) Dentition: Yes: Adequate Facial Symmetry at Rest: Symmetrical Facial Symmetry on Retraction: Symmetrical Lingual Movement: Normal, Symmetric Lingual Speed of Movement: Normal Lingual Movement Strgth Against Opposition: Normal Velopharyngeal Movement: Normal Laryngeal Elevation: WFL Laryngeal Movement: Labored,delay initiation Rate of Intake: WFL Labial Seal: WFL Chewing: WFL (mildly labored) Oral Prep Time: WFL A-P Transit: WFL Pocketing: None Timing of Swallow: Delayed Coughing/Throat Clear: No Change in Voice: No Recommendations - Speech Evaluation, Impression/Plan Impression: Perseverative with anomia in propositional speech. Good confrontation naming. Memory deficits.Intermittent confusion. - Dysphagia Impressions/Plan Dysphagia Impressions: Mild Impairment *Silent aspiration: cannot be R/O at bedside Dysphagia Treatment Plan: Chin Tuck/Down, Safe Rate, Elevate HOB during feed, OOB for 1 h. after meals, Other (feed slowly, Monitor tolerance.) Recommendations: Modified Barium Swallow (if cough, congestion, fever) - Recommendations Diet Consistency: Dysphagia Whole Liquids: Thin Liquids Supplement: Magic Cup
--- NOTE | 2017-03-05 20:45 | PN ---
Progress Note, Physician History of Present Illness: pt awake alert talking but very confused - Current Medication List Current Medications: Active Medications Acetaminophen (Tylenol -) 650 mg PO Q6H PRN PRN Reason: FEVER OR PAIN Last Admin: 03/01/17 22:58 Dose: 650 mg Bacitracin (Bacitracin -) 1 applic TP BID [facility] Last Admin: 03/05/17 10:26 Dose: 1 applic Chlorhexidine Gluconate (Peridex -) 15 ml MM BID [facility] Last Admin: 03/05/17 10:23 Dose: Not Given Chlorhexidine Gluconate (Hibiclens For Decolonization -) 1 applic TP HS [facility] Last Admin: 03/04/17 22:01 Dose: 1 applic Collagenase (Santyl -) 1 applic TP DAILY [facility] Last Admin: 03/05/17 10:25 Dose: 1 applic Heparin Sodium (Porcine) (Heparin -) 5,000 unit SQ TID [facility] Last Admin: 03/05/17 13:54 Dose: 5,000 unit Famotidine/Sodium Chloride (Pepcid 20 Mg Premixed Ivpb -) 50 mls @ 100 mls/hr IVPB DAILY@0600 [facility] Last Admin: 03/05/17 05:17 Dose: 100 mls/hr Mupirocin (Bactroban Ointment (For Decolonization) -) 1 applic NS BID [facility] Stop: 03/07/17 21:59 Last Admin: 03/05/17 10:23 Dose: 1 applic Potassium Phos/Sodium Phos (Phos-Nak Packet -) 1 packet PO TID [facility] Last Admin: 03/05/17 13:56 Dose: 1 packet Prednisone (Deltasone -) 10 mg PO DAILY [facility] Last Admin: 03/05/17 10:23 Dose: 10 mg - Objective Vital Signs: Vital Signs Temperature 98.3 F 03/05/17 14:00 Pulse Rate 93 H 03/05/17 16:00 Respiratory Rate 18 03/05/17 16:00 Blood Pressure 112/83 03/05/17 16:00 O2 Sat by Pulse Oximetry (%) 100 03/05/17 10:42 Constitutional: Yes: Calm HENT: Yes: Atraumatic Neck: Yes: Supple Cardiovascular: Yes: Regular Rate and Rhythm Respiratory: Yes: Rhonchi Gastrointestinal: Yes: Normal Bowel Sounds Extremities: Yes: WNL Neurological: Yes: Alert, Weakness Labs: CBC, BMP 03/05/17 05:00 03/05/17 05:00 INR, PTT INR 1.20 (0.82-1.09) H 03/01/17 08:30 Problem List - Problems (1) TRENT (acute kidney injury) Assessment/Plan: CR WNL Code(s): N17.9 - ACUTE KIDNEY FAILURE, UNSPECIFIED (2) Anoxic brain injury Code(s): G93.1 - ANOXIC BRAIN DAMAGE, NOT ELSEWHERE CLASSIFIED (3) Coma Assessment/Plan: awake and alert Code(s): R40.20 - UNSPECIFIED COMA Qualifiers: Coma depth: [place] coma 3-8 Coma timing: at arrival to emergency department Qualified Code(s): R40.2432 - Rossy coma scale score 3-8, at arrival to emergency department (4) Overdose Assessment/Plan: reportedly pt is on pain meds per roller operator Code(s): T50.901A - POISONING BY UNSP DRUG/MEDS/BIOL SUBST, ACCIDENTAL, INIT Qualifiers: Encounter type: initial encounter Injury intent: undetermined intent Qualified Code(s): T50.904A - Poisoning by unspecified drugs, medicaments and biological substances, undetermined, initial encounter (5) Polypharmacy Code(s): Z79.899 - OTHER [facility] (CURRENT) DRUG THERAPY (6) Respiratory failure Assessment/Plan: on NC Code(s): J96.90 - RESPIRATORY FAILURE, UNSP, UNSP W HYPOXIA OR HYPERCAPNIA Qualifiers: Chronicity: acute (7) Rhabdomyolysis Assessment/Plan: ivf Code(s): M62.82 - RHABDOMYOLYSIS (8) Unresponsive Code(s): R41.89 - OTH SYMPTOMS AND SIGNS W COGNITIVE FUNCTIONS AND AWARENESS (9) UTI (urinary tract infection) Assessment/Plan: iv abx cxs noted Code(s): N39.0 - URINARY TRACT INFECTION, SITE NOT SPECIFIED
--- NOTE | 2017-03-05 20:55 | PN ---
Progress Note (short form) - Note Progress Note: Vascular Surgery Pt seen and examined. upper back wound with eschar. Left hip wound with eschar. Unstable ulcers. Santyl to all wounds. If doesn't get better will need debridement. Offload area. Moises Soto DO
[2017-03-05] MEDS: CHLORHEXIDINE GLUCONATE 4% CLEANSER FOR DECOLONIZATION TP SCH (22:06)
[2017-03-06] MEDS: NAPH,MB-DB/K PH,MBDB POWDER PACKET PO SCH ×3 (06:03→21:58)
[2017-03-06] MEDS: FAMOTIDINE 20 MG/50 ML IVPB 50 ML IVPB SCH (06:03)
[2017-03-06] MEDS: HEPARIN NA (PORCINE) 5,000 UNITS/ML 1ML VIAL SQ SCH ×3 (06:04→21:58)
[2017-03-06 07:33] LABS: MCHC 31.5 g/dl (32.0-36.0); MEAN PLT VOLUME 11.7 fl (7.5-11.1); PLATELET COUNT 205 K/MM3 (134-434); RDW 22.1 % (11.6-15.6); WHITE BLOOD COUNT 5.9 K/mm3 (4.0-10.0)
[2017-03-06 08:41] LABS: ALBUMIN 2.7 g/dl (3.4-5.0); ALK PHOS 64 U/L (45-117); ANION GAP 8 (8-16); BILIRUBIN,TOTAL 0.5 mg/dL (0.2-1.0); CALCIUM 8.6 mg/dL (8.5-10.1); CO2 28 mmol/L (21-32); CREATININE 0.5 mg/dL (0.55-1.02); GLUCOSE,RANDOM 96 mg/dL (74-106); MAGNESIUM 1.8 mg/dL (1.8-2.4); SGOT/AST 149 U/L (15-37); SGPT/ALT 95 U/L (12-78); TOT PROT 5.2 g/dl (6.4-8.2)
[2017-03-06] MEDS ORDERED: MUPIROCIN 2% TOPICAL OINTMENT FOR DECOLONIZATION NS SCH (10:00)
[2017-03-06] MEDS: predniSONE 10 MG TABLET (UD) PO SCH (10:07)
--- NOTE | 2017-03-06 10:12 | PN ---
Progress Note (short form) - Note Progress Note: Neurology History of Present Illness 46 year old female presented to ER completely unresponsive, Rossy coma scale of 3, who was "found down" possibly for several days and last known well two days ago. Found in her own urine and feces without explanation of why. Concern for airway protection and ER intubated and put on mechanical ventilation in the ER. CT head completed and did not show acute changes. UTox positive for benzo, barbiturates, and opiods. Also with WBC of 18. Concern for drug overdose, was in ICU in close monitoring, now downgraded to telemetry. Ct head completed and did not show signs of anoxic brain injury, and patient extubated over the weekend. Now more awake, alert, responsive, tracking examiner, conversive. Able to tell me she is in the hospital, the date, name of President. MRI brain and C spine ordered and EEG ordered over weekend. EMG completed this morning. Does have proximal muscle weakness. She seems to be having hallucinations of and delusions relating to people from transit police officer to a friend. Psych consulted. Active Medications Acetaminophen (Tylenol -) 650 mg PO Q6H PRN PRN Reason: FEVER OR PAIN Bacitracin (Bacitracin -) 1 applic TP BID [facility] Collagenase (Santyl -) 1 applic TP DAILY [facility] Heparin Sodium (Porcine) (Heparin -) 5,000 unit SQ TID [facility] Famotidine/Sodium Chloride (Pepcid 20 Mg Premixed Ivpb -) 50 mls @ 100 mls/hr IVPB DAILY@0600 [facility] Potassium Phos/Sodium Phos (Phos-Nak Packet -) 1 packet PO TID [facility] Prednisone (Deltasone -) 10 mg PO DAILY [facility] Last Admin: 03/06/17 10:07 Dose: 10 mg *Physical Exam Vital Signs Temperature 98.1 F 03/06/17 07:55 Pulse Rate 89 03/06/17 07:55 Respiratory Rate 20 03/06/17 07:55 Blood Pressure 121/67 03/06/17 07:55 O2 Sat by Pulse Oximetry (%) 100 03/05/17 21:00 Awake, tracking examiner, verbal and cooperative but confused, conversive Squeezing hand to command, raising arms or legs to command but with proximal muscle weakness Intact to tactile stimulation Finger to nose intact Lungs sounds mechanical RRR Abdomen soft Gait deferred CBCD WBC 5.9 K/mm3 (4.0-10.0) 03/06/17 05:28 RBC 3.85 M/mm3 (3.60-5.2) 03/06/17 05:28 Hgb 8.9 GM/dL (10.7-15.3) L 03/06/17 05:28 Hct 28.1 % (32.4-45.2) L 03/06/17 05:28 MCV 73.0 fl (80-96) L 03/06/17 05:28 MCHC 31.5 g/dl (32.0-36.0) L 03/06/17 05:28 RDW 22.1 % (11.6-15.6) H 03/06/17 05:28 Plt Count 205 K/MM3 (134-434) D 03/06/17 05:28 MPV 11.7 fl (7.5-11.1) H D 03/06/17 05:28 CMP Sodium 145 mmol/L (136-145) 03/06/17 05:28 Potassium 3.3 mmol/L (3.5-5.1) L 03/06/17 05:28 Chloride 109 mmol/L (98-107) H 03/06/17 05:28 Carbon Dioxide 28 mmol/L (21-32) 03/06/17 05:28 Anion Gap 8 (8-16) 03/06/17 05:28 BUN 5 mg/dL (7-18) L D 03/06/17 05:28 Creatinine 0.5 mg/dL (0.55-1.02) L 03/06/17 05:28 Creat Clearance w eGFR > 60 (>60) 03/06/17 05:28 Calcium 8.6 mg/dL (8.5-10.1) 03/06/17 05:28 Total Bilirubin 0.5 mg/dL (0.2-1.0) D 03/06/17 05:28 AST 149 U/L (15-37) H 03/06/17 05:28 ALT 95 U/L (12-78) H D 03/06/17 05:28 Alkaline Phosphatase 64 U/L (45-117) 03/06/17 05:28 Total Protein 5.2 g/dl (6.4-8.2) L 03/06/17 05:28 Albumin 2.7 g/dl (3.4-5.0) L 03/06/17 05:28 CT head reviewed Plan: 46 year old female presented to ER completely unresponsive, Rossy coma scale of 3, who was "found down" possibly for several days and last known well two days ago. Found in her own urine and feces without explanation of why. Concern for airway protection and ER intubated and put on mechanical ventilation, under close observation in the ICU. CT head completed and did not show acute changes. Repeat CT head without acute changes, did not have signs of anoxic brain injury UTox positive for benzo, barbiturates, and opiods. Concern for drug overdose MRI brain and C spine pending EEG pending Hydration as needed Psych consult for hallucinations Weaned from mechanical vent, comfortable on room air No evidence of seizures Mental status improving but not at baseline and likely with underlying psych disorder Will follow
--- NOTE | 2017-03-06 11:24 | CON.PSY ---
Psychiatry Consult Chief Complaint: Patient admitted with acute sbstance abuse, admitted to ICU in coma. Screen positive for Subsatnce abuse. Symptoms: reports: Disorganized/Disruptive Thoughts, Delusions, Hallucinations, Paranoia - Previous Psychiatric Treatment Outpatient: None Inpatient: None - Previous Substance Abuse Treatment Outpatient: None Inpatient: None - Reason for Previous Treatment Reason for Previous Treatment: Heroin or Other Narcotics - Current Medications Current Medications: Active Medications Acetaminophen (Tylenol -) 650 mg PO Q6H PRN PRN Reason: FEVER OR PAIN Bacitracin (Bacitracin -) 1 applic TP BID [facility] Collagenase (Santyl -) 1 applic TP DAILY [facility] Heparin Sodium (Porcine) (Heparin -) 5,000 unit SQ TID [facility] Famotidine/Sodium Chloride (Pepcid 20 Mg Premixed Ivpb -) 50 mls @ 100 mls/hr IVPB DAILY@0600 [facility] Potassium Phos/Sodium Phos (Phos-Nak Packet -) 1 packet PO TID [facility] Prednisone (Deltasone -) 10 mg PO DAILY [facility] Last Admin: 03/06/17 10:07 Dose: 10 mg - Allergies Allergies: Allergies Allergy/AdvReac Type Severity Reaction Status Date / Time No Allergy Information Allergy Verified 02/26/17 13:17 Available - Current Living Status Usual Living Arrangement: Alone - Current Mental Status Evaluation Appearance: Disheveled Attitude: Guarded - Affect Affect: Constrictive Appropriateness: Not Appropriate - Mood Mood: Other - Speech/Language Expressive: Delayed - Psychomotor Activity Psychomotor Activity: Slowed - Thought Process Thought Process: Circumstantial - Thought Content Delusions: Present Type: Persectory - Self Perception Self Perception: Depersonalization - Cognition Attention: Diminished Orientation: Time Memory, Immediate Recall: Impaired Memory, Short Term: 1/3 Memory, Remote with Promptin/3 - Concentration Serial Sevens Intact: No Simple Calculations Intact: No - Abstraction Proverb Interpretation: Impaired Judgement: Moderately Impaired - Insight Insight: Impaired - Impulse Control Impulse Control: Minimally Impaired - Suicidal Ideation Suicidal Ideation: No - Homicidal Ideation Homicidal Ideation: No Assessment/Plan Start Risperidal 1mg po bid
--- NOTE | 2017-03-06 12:34 | PN ---
Progress Note, GLUING PRESSMAN - Note Progress Note: Selected Entries 03/05/17 03/05/17 03/05/17 04:00 06:00 08:00 Breakfast Lunch Temperature 99.3 F 99.2 F 98.8 F 03/05/17 03/05/17 03/06/17 14:00 21:00 02:22 Breakfast Lunch 25% Temperature 98.3 F 98.9 F 98.3 F 03/06/17 03/06/17 03/06/17 05:26 07:55 10:30 Breakfast 75% Lunch Temperature 97.9 F 98.1 F Pt on pureed diet and thin liquid. Pt calm and passive today. REC: trial Dys whole and thin liquid.
[2017-03-06] MEDS: BACITRACIN 15 GM TUBE TOPICAL OINTMENT TP SCH ×2 (12:51→21:58)
[2017-03-06] MEDS: COLLAGENASE CLOSTRIDIUM HIST. 30 GRAMS TUBE TP SCH (12:51)
--- NOTE | 2017-03-06 14:18 | PN ---
Progress Note (short form) - Note Progress Note: Chief Complaint: Events noted, notes reviewed, Lethargic but arousable, No distress, sinus rhythm is noted History of Present Illness: Seen and examined on telemetry. Events noted, notes reviewed, Lethargic but arousable, No distress, sinus rhythm is noted Repeat Echocardiography report noted Normal left ventricular size and function, normal right ventricular size and function with no significant valvular pathologies - Current Medication List Current Medications Acetaminophen (Tylenol -) 650 mg PO Q6H PRN PRN Reason: FEVER OR PAIN Bacitracin (Bacitracin -) 1 applic TP BID [facility] Last Admin: 03/06/17 12:51 Dose: 1 applic Collagenase (Santyl -) 1 applic TP DAILY [facility] Last Admin: 03/06/17 12:51 Dose: 1 applic Heparin Sodium (Porcine) (Heparin -) 5,000 unit SQ TID [facility] Famotidine/Sodium Chloride (Pepcid 20 Mg Premixed Ivpb -) 50 mls @ 100 mls/hr IVPB DAILY@0600 [facility] Potassium Phos/Sodium Phos (Phos-Nak Packet -) 1 packet PO TID [facility] Prednisone (Deltasone -) 10 mg PO DAILY [facility] Last Admin: 03/06/17 10:07 Dose: 10 mg Risperidone (Risperdal -) 1 mg PO BID [facility] Review of Systems - Review of Systems Constitutional: No symptoms reported Respiratory: denies: Cough or Sputum Production Cardiovascular: as noted above Gastrointestinal: denies Nausea, Vomiting, Diarrhea, Constipation or Abdominal Pain Genitourinary: No symptoms reported Musculoskeletal: No symptoms reported Endocrine: No symptoms reported - Objective Vital Signs: Last Vital Signs Temp Pulse Resp BP Pulse Ox 98.1 F 89 20 121/67 100 03/06/17 07:55 03/06/17 07:55 03/06/17 08:00 03/06/17 07:55 03/06/17 08:00 Intake & Output 03/03/17 03/04/17 03/05/17 03/06/17 23:59 23:59 23:59 23:59 Intake Total 1350 1890 1290 290 Output Total 2600 2050 3900 Balance -1250 -160 -2610 290 Weight 169 lb 5.04 oz 175 lb 4.28 oz 174 lb 6.4 oz Constitutional: No Distress Neck: Supple Negative JVD Cardiovascular: S1 S2 Regular Rate and Rhythm No Murmurs, Clicks or Gallops Respiratory: Diminished Breath Sounds at the Bases Bilaterally Gastrointestinal: Soft Benign Normal Bowel Sounds Ext: Trace Edema Labs: CBC, BMP 03/06/17 05:28 03/06/17 05:28 Assessment/Plan ASSESSMENT: 1. Post respiratory failure, extubated, persistent toxic metabolic encephalopathy, possible drug overdose 2. Sepsis syndrome, resolved 3. History of Lupus 5. Acute on chronic renal insufficiency, pre-renal azotemia, resolved 6. Anemia 7. Hypokalemia PLAN: 1. DVT prophylaxis 2. Neurological evaluation as planned for the above noted persistent encephalopathy 3. No additional cardiovascular intervention is indicated based on the above- noted repeat echocardiography report Nuvia Kelly MD
--- NOTE | 2017-03-06 14:43 | CONS ---
PHYSICAL MEDICINE REHABILITATION CONSULTATION DATE OF CONSULTATION: 03/06/2017 REFERRING PHYSICIAN: Grant Sheehan DO DATE OF ADMISSION: 02/26/2017 HISTORY OF PRESENT ILLNESS: Patient is a 46-year-old woman who was admitted to [facility] after being found unresponsive possibly for up to 2 days. The patient underwent urine toxicology which was positive for opiates, barbiturates, and benzodiazepines. Her BUN was 112, creatinine 1.8. WBC is 18,000. CPK 956. Patient was admitted to the intensive care unit but continues to have severe weakness. She was seen in neurologic consultation, and subsequently, over this weekend, was seen by Dr. Sheehan who ordered an EEG as well as an EMG. Other tests: Patient underwent a CT of the head on February 26, which showed no acute intracranial hemorrhage, mass effect, or hydrocephalus. She underwent multiple chest x-rays which did not show any acute process, but subsequent chest x-rays showed endotracheal tube and feeding tube. Patient's tubes were removed. The patient was weaned off the ventilator and remains weak. She is now seen in rehabilitation evaluation. She was given IV fluids for rhabdomyolysis and treated empirically with antibiotics. She was placed on a pureed diet. Patient was seen by Speech Pathology who noted some intermittent confusion, recommended a modified barium swallow with swallowing techniques, dysphagia diet with thin liquids. The patient's most recent blood work on March 05: She had normalization of WBCs which had been 18, 000 on admission to 6.9. Patient's hemoglobin has dropped, possibly from hemodilution , but stable in the last few days with a March 05 hemoglobin 8.3, platelet count slightly low at 133. Latest chemistry on March 05 showed low potassium at 3.1, normalization of BUN to 7 and creatinine to 0.6. She has low calcium at 7.9 which corrects for a low albumin of 2.5. She also has a low phosphorus level of 1.9. CPKs have been as high as 1884 on March 03. C-reactive protein is elevated at 6.4. TSH normal at 1.13. B12 normal at 402. Folate level normal at 8. Patient remains weak but reports no numbness, tingling, and is more arousable. She is now seen for rehabilitation evaluation. PAST MEDICAL AND SURGICAL HISTORY: Mostly unknown, possibly lupus for which she may have been getting prednisone, possibly substance abuse. SOCIAL HISTORY: Per the patient, she was independent, ambulatory without assistive device prior to admission. Current function: Patient is not out of bed as of yet. REVIEW OF SYSTEMS: She reports no dizziness, no lightheadedness, no blurry vision or doubly vision that is new. No nausea, vomiting. Some difficulty swallowing but no difficulty chewing. No chest pain or shortness of breath. Diffuse weakness without any joint arthralgias. No numbness or tingling. No fever or chills. No back or neck pain. PHYSICAL EXAMINATION: General: Patient is seen lying supine in bed. She is awake and cooperative, but reports extreme fatigue and weakness. HEENT: She is normocephalic and atraumatic. Her extraocular muscles appear intact. No obvious facial weakness. Neck: Supple. Extremities: She has multiple wounds in the distal lower extremities but not pitting edema. Neuromuscular: She is awake, alert, oriented x3. Cranial nerves 2-12 appear grossly intact. She has diffuse weakness with grossly 1-2/5 proximal strength in the upper extremities and 3/5 distal strength, as well as elbow flexors are 3/5. In the lower extremities, 1/5 hip girdle, 1-2/5 knee extensors, and 1-2/5 dorsiflexors. Normal sensation to pinprick. Symmetric reflexes. Toes appear downgoing. She has good passive range of motion in all 4 limbs without any gross arthritic change. Skin without any diffuse rash. Again, wounds in the distal lower extremities, in the heels and feet, which have dressings. Results of EMG/NCS - see report scanned into medical record and hard copy placed on chart. Muscle membrane instability and myopathic motor units with normal sensory conduction c/w Myopathy possibly related to critical illness nor rhabdomyolysis. No Sensory polyneuropathy. OVERALL IMPRESSION: 1. Deficits in mobility and activities of daily living. 2. Diffuse weakness, uncertain etiology, EMG consistent with myopathy, although her CPK did not elevate to an extreme level. Rule out underlying critical illness myopathy or other etiology. 3. Altered mental status, improving. 4. Possible drug overdose. 5. Acute kidney disease, resolving. 6. Hypoalbuminemia. 7. Electrolyte abnormalities. 8. Elevated CRP. 9. History of lupus. PLAN/SUGGESTION: 1. Neurologic follow up and supportive care. 2. Nursing for passive range of motion. 3. Physical therapy for strengthening; bed mobility; when appropriate, transfers. 4. DVT prophylaxis. Continue subcutaneous heparin. 5. Medical management regarding electrolyte abnormalities. 6. Continue fluid hydration. 7. Consider acute or subacute rehabilitation once stabilized. 8. Wound care. 9. Out of bed to chair if or when able. Thank you for this referral. DEBBI BARKSDALE M.D. [id number] MTDD
--- NOTE | 2017-03-06 18:25 | PN ---
Progress Note, Physician History of Present Illness: pt awake alert talking but very confused - Current Medication List Current Medications: Active Medications Acetaminophen (Tylenol -) 650 mg PO Q6H PRN PRN Reason: FEVER OR PAIN Bacitracin (Bacitracin -) 1 applic TP BID [facility] Last Admin: 03/06/17 12:51 Dose: 1 applic Collagenase (Santyl -) 1 applic TP DAILY [facility] Last Admin: 03/06/17 12:51 Dose: 1 applic Heparin Sodium (Porcine) (Heparin -) 5,000 unit SQ TID [facility] Last Admin: 03/06/17 15:17 Dose: 5,000 unit Famotidine/Sodium Chloride (Pepcid 20 Mg Premixed Ivpb -) 50 mls @ 100 mls/hr IVPB DAILY@0600 [facility] Potassium Phos/Sodium Phos (Phos-Nak Packet -) 1 packet PO TID [facility] Last Admin: 03/06/17 15:17 Dose: 1 packet Prednisone (Deltasone -) 10 mg PO DAILY [facility] Last Admin: 03/06/17 10:07 Dose: 10 mg Risperidone (Risperdal -) 1 mg PO BID [facility] - Objective Vital Signs: Vital Signs Temperature 98.0 F 03/06/17 14:42 Pulse Rate 95 H 03/06/17 14:42 Respiratory Rate 20 03/06/17 14:42 Blood Pressure 111/62 03/06/17 14:42 O2 Sat by Pulse Oximetry (%) 100 03/06/17 08:00 Constitutional: Yes: No Distress HENT: Yes: Atraumatic Neck: Yes: Supple Cardiovascular: Yes: Regular Rate and Rhythm Respiratory: Yes: CTA Bilaterally, Rhonchi Gastrointestinal: Yes: Normal Bowel Sounds Extremities: Yes: WNL Edema: No Neurological: Yes: Alert Labs: CBC, BMP 03/06/17 05:28 03/06/17 05:28 INR, PTT INR 1.20 (0.82-1.09) H 03/01/17 08:30 Problem List - Problems (1) TRENT (acute kidney injury) Assessment/Plan: CR WNL Code(s): N17.9 - ACUTE KIDNEY FAILURE, UNSPECIFIED (2) Anoxic brain injury Assessment/Plan: on NC Code(s): G93.1 - ANOXIC BRAIN DAMAGE, NOT ELSEWHERE CLASSIFIED (3) Coma Assessment/Plan: awake and alert Code(s): R40.20 - UNSPECIFIED COMA Qualifiers: Coma depth: [place] coma 3-8 Coma timing: at arrival to emergency department Qualified Code(s): R40.2432 - Rossy coma scale score 3-8, at arrival to emergency department (4) Overdose Assessment/Plan: reportedly pt is on pain meds per 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 hide house Code(s): T50.901A - POISONING BY UNSP DRUG/MEDS/BIOL SUBST, ACCIDENTAL, INIT Qualifiers: Encounter type: initial encounter Injury intent: undetermined intent Qualified Code(s): T50.904A - Poisoning by unspecified drugs, medicaments and biological substances, undetermined, initial encounter (5) Polypharmacy Code(s): Z79.899 - OTHER FINISHER CARD TENDER (CURRENT) DRUG THERAPY (6) Respiratory failure Assessment/Plan: on NC Code(s): J96.90 - RESPIRATORY FAILURE, UNSP, UNSP W HYPOXIA OR HYPERCAPNIA Qualifiers: Chronicity: acute (7) Rhabdomyolysis Assessment/Plan: ivf resolved Code(s): M62.82 - RHABDOMYOLYSIS (8) Unresponsive Code(s): R41.89 - OTH SYMPTOMS AND SIGNS W COGNITIVE FUNCTIONS AND AWARENESS (9) UTI (urinary tract infection) Assessment/Plan: iv abx cxs noted Code(s): N39.0 - URINARY TRACT INFECTION, SITE NOT SPECIFIED
--- NOTE | 2017-03-06 18:49 | PN ---
Progress Note, Physician History of Present Illness: stable confusion off and on awake - Current Medication List Current Medications: Active Medications Acetaminophen (Tylenol -) 650 mg PO Q6H PRN PRN Reason: FEVER OR PAIN Bacitracin (Bacitracin -) 1 applic TP BID [facility] Last Admin: 03/06/17 12:51 Dose: 1 applic Collagenase (Santyl -) 1 applic TP DAILY [facility] Last Admin: 03/06/17 12:51 Dose: 1 applic Heparin Sodium (Porcine) (Heparin -) 5,000 unit SQ TID [facility] Last Admin: 03/06/17 15:17 Dose: 5,000 unit Famotidine/Sodium Chloride (Pepcid 20 Mg Premixed Ivpb -) 50 mls @ 100 mls/hr IVPB DAILY@0600 [facility] Potassium Phos/Sodium Phos (Phos-Nak Packet -) 1 packet PO TID [facility] Last Admin: 03/06/17 15:17 Dose: 1 packet Prednisone (Deltasone -) 10 mg PO DAILY [facility] Last Admin: 03/06/17 10:07 Dose: 10 mg Risperidone (Risperdal -) 1 mg PO BID [facility] - Objective Vital Signs: Vital Signs Temperature 98.0 F 03/06/17 14:42 Pulse Rate 95 H 03/06/17 14:42 Respiratory Rate 20 03/06/17 14:42 Blood Pressure 111/62 03/06/17 14:42 O2 Sat by Pulse Oximetry (%) 100 03/06/17 08:00 Constitutional: Yes: No Distress, Calm Cardiovascular: Yes: Regular Rate and Rhythm Respiratory: Yes: Regular, CTA Bilaterally Gastrointestinal: Yes: Normal Bowel Sounds, Soft Musculoskeletal: Yes: WNL Extremities: Yes: WNL Neurological: Yes: Alert Psychiatric: Yes: Alert Labs: CBC, BMP 03/06/17 05:28 03/06/17 05:28 INR, PTT INR 1.20 (0.82-1.09) H 03/01/17 08:30 Assessment/Plan Problem List - Problems (1) Overdose Code(s): T50.901A - POISONING BY UNSP DRUG/MEDS/BIOL SUBST, ACCIDENTAL, INIT Qualifiers: Encounter type: initial encounter Injury intent: undetermined intent Qualified Code(s): T50.904A - Poisoning by unspecified drugs, medicaments and biological substances, undetermined, initial encounter (2) Polypharmacy Code(s): Z79.899 - OTHER HALFWAY (CURRENT) DRUG THERAPY (3) Unresponsive Code(s): R41.89 - OTH SYMPTOMS AND SIGNS W COGNITIVE FUNCTIONS AND AWARENESS (4) TRENT (acute kidney injury) Code(s): N17.9 - ACUTE KIDNEY FAILURE, UNSPECIFIED (5) Rhabdomyolysis Code(s): M62.82 - RHABDOMYOLYSIS (6) Respiratory failure Code(s): J96.90 - RESPIRATORY FAILURE, UNSP, UNSP W HYPOXIA OR HYPERCAPNIA asp pna leukocytosis uti plan stable off of abx continue to monitor mental status rest as per primary
[2017-03-06] MEDS: POTASSIUM CHLORIDE TABS 20 MEQ TABLET.ER (FP) PO SCH (21:58)
[2017-03-06] MEDS: risperiDONE 1 MG TABLET (FP) PO SCH (21:59)
[2017-03-07] MEDS: FAMOTIDINE 20 MG/50 ML IVPB 50 ML IVPB SCH (05:57)
[2017-03-07] MEDS: HEPARIN NA (PORCINE) 5,000 UNITS/ML 1ML VIAL SQ SCH ×3 (05:57→21:25)
[2017-03-07] MEDS: NAPH,MB-DB/K PH,MBDB POWDER PACKET PO SCH ×3 (05:57→21:27)
--- NOTE | 2017-03-07 09:40 | PN ---
Progress Note (short form) - Note Progress Note: Neurology History of Present Illness 46 year old female presented to ER completely unresponsive, Rossy coma scale of 3, who was "found down" possibly for several days and last known well two days ago. Found in her own urine and feces without explanation of why. Concern for airway protection and ER intubated and put on mechanical ventilation in the ER. CT head completed and did not show acute changes. UTox positive for benzo, barbiturates, and opiods. Also with WBC of 18. Concern for drug overdose, was in ICU in close monitoring, now downgraded to telemetry. Ct head completed and did not show signs of anoxic brain injury, and patient extubated over the weekend. Now more awake, alert, responsive, tracking examiner, conversive. Able to tell me she is in the hospital, the date, name of President. MRI brain and C spine ordered, has not completed because patient does not have ability to tell us if any metal in body and staff trying to reach healthcare proxy to determine. EEG ordered over weekend. . Does have proximal muscle weakness. Awaiting EMG report. She seems to be having hallucinations of and delusions relating to people from railroad police officer to a friend. Psych consulted and started on Risperdal 1mg. Echo completed and reviewed. Active Medications Acetaminophen (Tylenol -) 650 mg PO Q6H PRN PRN Reason: FEVER OR PAIN Bacitracin (Bacitracin -) 1 applic TP BID [facility] Last Admin: 03/06/17 21:58 Dose: 1 applic Collagenase (Santyl -) 1 applic TP DAILY [facility] Last Admin: 03/06/17 12:51 Dose: 1 applic Heparin Sodium (Porcine) (Heparin -) 5,000 unit SQ TID [facility] Last Admin: 03/07/17 05:57 Dose: 5,000 unit Famotidine/Sodium Chloride (Pepcid 20 Mg Premixed Ivpb -) 50 mls @ 100 mls/hr IVPB DAILY@0600 [facility] Last Admin: 03/07/17 05:57 Dose: 100 mls/hr Potassium Chloride (K-Dur -) 40 meq PO DAILY [facility] Last Admin: 03/06/17 21:58 Dose: 40 meq Potassium Phos/Sodium Phos (Phos-Nak Packet -) 1 packet PO TID [facility] Last Admin: 03/07/17 05:57 Dose: 1 packet Prednisone (Deltasone -) 10 mg PO DAILY [facility] Last Admin: 03/06/17 10:07 Dose: 10 mg Risperidone (Risperdal -) 1 mg PO BID [facility] Last Admin: 03/06/17 21:59 Dose: 1 mg *Physical Exam Vital Signs Period Temp Pulse Resp BP Sys/Pena Pulse Ox Last 24 Hr 98.0 F-99.2 F 84-96 18-20 111-128/62-74 100 Awake, tracking examiner, verbal and cooperative, conversive, asking about going home Squeezing hand to command, raising arms or legs to command but with proximal muscle weakness Intact to tactile stimulation Finger to nose intact Lungs sounds mechanical RRR Abdomen soft Gait deferred CBCD WBC 5.9 K/mm3 (4.0-10.0) 03/06/17 05:28 RBC 3.85 M/mm3 (3.60-5.2) 03/06/17 05:28 Hgb 8.9 GM/dL (10.7-15.3) L 03/06/17 05:28 Hct 28.1 % (32.4-45.2) L 03/06/17 05:28 MCV 73.0 fl (80-96) L 03/06/17 05:28 MCHC 31.5 g/dl (32.0-36.0) L 03/06/17 05:28 RDW 22.1 % (11.6-15.6) H 03/06/17 05:28 Plt Count 205 K/MM3 (134-434) D 03/06/17 05:28 MPV 11.7 fl (7.5-11.1) H D 03/06/17 05:28 CMP Sodium 145 mmol/L (136-145) 03/06/17 05:28 Potassium 3.3 mmol/L (3.5-5.1) L 03/06/17 05:28 Chloride 109 mmol/L (98-107) H 03/06/17 05:28 Carbon Dioxide 28 mmol/L (21-32) 03/06/17 05:28 Anion Gap 8 (8-16) 03/06/17 05:28 BUN 5 mg/dL (7-18) L D 03/06/17 05:28 Creatinine 0.5 mg/dL (0.55-1.02) L 03/06/17 05:28 Creat Clearance w eGFR > 60 (>60) 03/06/17 05:28 Calcium 8.6 mg/dL (8.5-10.1) 03/06/17 05:28 Total Bilirubin 0.5 mg/dL (0.2-1.0) D 03/06/17 05:28 AST 149 U/L (15-37) H 03/06/17 05:28 ALT 95 U/L (12-78) H D 03/06/17 05:28 Alkaline Phosphatase 64 U/L (45-117) 03/06/17 05:28 Total Protein 5.2 g/dl (6.4-8.2) L 03/06/17 05:28 Albumin 2.7 g/dl (3.4-5.0) L 03/06/17 05:28 CT head reviewed Plan: 46 year old female presented to ER completely unresponsive, Rossy coma scale of 3, who was "found down" possibly for several days and last known well two days ago. Found in her own urine and feces without explanation of why. Concern for airway protection and ER intubated and put on mechanical ventilation, under close observation in the ICU. CT head completed and did not show acute changes. Repeat CT head without acute changes, did not have signs of anoxic brain injury UTox positive for benzo, barbiturates, and opiods. Concern for drug overdose MRI brain and C spine pending, patient not able to consent EEG pending Hydration as needed Psych consult for hallucinations Weaned from mechanical vent, comfortable on room air No evidence of seizures Mental status improving but not at baseline and likely with underlying psych disorder Started on Risperdal 1mg bid Will follow
[2017-03-07] MEDS ORDERED: PT OWN MED DRAWER 7, Y5N ONE (09:53)
[2017-03-07] MEDS: risperiDONE 1 MG TABLET (FP) PO SCH ×2 (09:56→21:27)
[2017-03-07] MEDS: POTASSIUM CHLORIDE TABS 20 MEQ TABLET.ER (FP) PO SCH (09:56)
[2017-03-07] MEDS: predniSONE 10 MG TABLET (UD) PO SCH (09:56)
[2017-03-07] MEDS: BACITRACIN 15 GM TUBE TOPICAL OINTMENT TP SCH ×2 (12:10→21:22)
--- NOTE | 2017-03-07 12:31 | PN ---
Progress Note, INSULATION FOREMAN - Note Progress Note: Selected Entries 03/06/17 03/06/17 03/07/17 10:30 14:42 01:41 Breakfast 75% Lunch 50% Temperature 99.2 F 03/07/17 03/07/17 05:44 09:24 Breakfast 75% Lunch Temperature 99 F Laboratory Tests 03/06/17 05:28 WBC 5.9 Pt is getting stronger, starting to feed herself. Pt started on Risperdal. Distractible, with impaired speech initiation and very slow formulation of responses. Somewhat oriented but perseverative and quite tangential. Pt would benefit from intensive POT/OT/INSULATION FOREMAN rehab, Consider Acute rehab at [facility].
--- NOTE | 2017-03-07 12:38 | PN ---
Progress Note (short form) - Note Progress Note: PULMONARY CHART REVIEWED RESPONDS TO SIMPLE QUESTIONS WITH A GRUNT LOW GRADE TEMP ANICTERIC CLEAR B/L ANTERIOR BREATH SOUNDS S1S2 BS+ NO EDEMA LABS/MEDS/IMAGING/NOTES REVIEWED Altered Mental Status Acute Respiratory Failure resolved Drug Overdose Acute Kidney Injury Lupus Hypernatremia improving - for MRI brain - s/p empiric antibiotics - monitor urine output, creatinine - replete lytes - continue home prednisone dose for her lupus - PO as tolerated - DVT prophylaxis - rehab/PT - can monitor on telemetry Heath DIAZ MD
[2017-03-07] MEDS: COLLAGENASE CLOSTRIDIUM HIST. 30 GRAMS TUBE TP SCH (14:54)
--- NOTE | 2017-03-07 16:35 | PN ---
Progress Note, Physician History of Present Illness: Mental status improved, but not at baseline. - Current Medication List Current Medications: Active Medications Acetaminophen (Tylenol -) 650 mg PO Q6H PRN PRN Reason: FEVER OR PAIN Bacitracin (Bacitracin -) 1 applic TP BID [facility] Last Admin: 03/06/17 21:58 Dose: 1 applic Collagenase (Santyl -) 1 applic TP DAILY [facility] Last Admin: 03/07/17 14:54 Dose: 1 applic Heparin Sodium (Porcine) (Heparin -) 5,000 unit SQ TID [facility] Last Admin: 03/07/17 14:54 Dose: 5,000 unit Famotidine/Sodium Chloride (Pepcid 20 Mg Premixed Ivpb -) 50 mls @ 100 mls/hr IVPB DAILY@0600 [facility] Last Admin: 03/07/17 05:57 Dose: 100 mls/hr Potassium Chloride (K-Dur -) 40 meq PO DAILY [facility] Last Admin: 03/07/17 09:56 Dose: 40 meq Potassium Phos/Sodium Phos (Phos-Nak Packet -) 1 packet PO TID [facility] Last Admin: 03/07/17 14:54 Dose: 1 packet Prednisone (Deltasone -) 10 mg PO DAILY [facility] Last Admin: 03/07/17 09:56 Dose: 10 mg Risperidone (Risperdal -) 1 mg PO BID [facility] Last Admin: 03/07/17 09:56 Dose: 1 mg - Objective Vital Signs: Vital Signs Temperature 99.1 F 03/07/17 14:22 Pulse Rate 100 H 03/07/17 14:22 Respiratory Rate 20 03/07/17 14:22 Blood Pressure 119/71 03/07/17 14:22 O2 Sat by Pulse Oximetry (%) 100 03/07/17 09:00 Constitutional: Yes: No Distress, Calm, Thin Neck: Yes: Supple Cardiovascular: Yes: Regular Rate and Rhythm Respiratory: Yes: Regular, CTA Bilaterally Gastrointestinal: Yes: Normal Bowel Sounds, Soft Edema: No Labs: CBC, BMP 03/06/17 05:28 03/06/17 05:28 INR, PTT INR 1.20 (0.82-1.09) H 03/01/17 08:30 Problem List - Problems (1) Overdose Code(s): T50.901A - POISONING BY UNSP DRUG/MEDS/BIOL SUBST, ACCIDENTAL, INIT Qualifiers: Encounter type: initial encounter Injury intent: undetermined intent Qualified Code(s): T50.904A - Poisoning by unspecified drugs, medicaments and biological substances, undetermined, initial encounter (2) Respiratory failure Code(s): J96.90 - RESPIRATORY FAILURE, UNSP, UNSP W HYPOXIA OR HYPERCAPNIA Qualifiers: Chronicity: acute (3) Leukocytosis Code(s): D72.829 - ELEVATED WHITE BLOOD CELL COUNT, UNSPECIFIED Qualifiers: Leukocytosis type: unspecified Qualified Code(s): D72.829 - Elevated white blood cell count, unspecified (4) Aspiration pneumonia Code(s): J69.0 - PNEUMONITIS DUE TO INHALATION OF FOOD AND VOMIT Qualifiers: Aspiration pneumonia type: due to vomit Lung location: unspecified part of lung (5) Hypernatremia Code(s): E87.0 - HYPEROSMOLALITY AND HYPERNATREMIA (6) Lupus (systemic lupus erythematosus) Code(s): M32.9 - SYSTEMIC LUPUS ERYTHEMATOSUS, UNSPECIFIED (7) Anemia Code(s): D64.9 - ANEMIA, UNSPECIFIED Qualifiers: Anemia type: unspecified type Qualified Code(s): D64.9 - Anemia, unspecified Assessment/Plan 1. Post acute respiratory failure,persistent toxic metabolic encephalopathy, possible drug overdose 2. Sepsis syndrome, resolved 3. History of Lupus 5. Acute on chronic renal insufficiency, pre-renal azotemia, resolved 6. Anemia 7. Hypokalemia PLAN: 1. DVT prophylaxis, replete K 2. Neurological evaluation as planned for the above noted persistent encephalopathy including brain MRI and EEG 3. No additional cardiovascular intervention is indicated based on the above- noted repeat echocardiography report
--- NOTE | 2017-03-07 16:40 | PN ---
Progress Note, Physician History of Present Illness: stable confusion off and on awake - Current Medication List Current Medications: Active Medications Acetaminophen (Tylenol -) 650 mg PO Q6H PRN PRN Reason: FEVER OR PAIN Bacitracin (Bacitracin -) 1 applic TP BID [facility] Last Admin: 03/06/17 21:58 Dose: 1 applic Collagenase (Santyl -) 1 applic TP DAILY [facility] Last Admin: 03/07/17 14:54 Dose: 1 applic Heparin Sodium (Porcine) (Heparin -) 5,000 unit SQ TID [facility] Last Admin: 03/07/17 14:54 Dose: 5,000 unit Famotidine/Sodium Chloride (Pepcid 20 Mg Premixed Ivpb -) 50 mls @ 100 mls/hr IVPB DAILY@0600 [facility] Last Admin: 03/07/17 05:57 Dose: 100 mls/hr Potassium Chloride (K-Dur -) 40 meq PO DAILY [facility] Last Admin: 03/07/17 09:56 Dose: 40 meq Potassium Phos/Sodium Phos (Phos-Nak Packet -) 1 packet PO TID [facility] Last Admin: 03/07/17 14:54 Dose: 1 packet Prednisone (Deltasone -) 10 mg PO DAILY [facility] Last Admin: 03/07/17 09:56 Dose: 10 mg Risperidone (Risperdal -) 1 mg PO BID [facility] Last Admin: 03/07/17 09:56 Dose: 1 mg - Objective Vital Signs: Vital Signs Temperature 99.1 F 03/07/17 14:22 Pulse Rate 100 H 03/07/17 14:22 Respiratory Rate 20 03/07/17 14:22 Blood Pressure 119/71 03/07/17 14:22 O2 Sat by Pulse Oximetry (%) 100 03/07/17 09:00 Constitutional: Yes: No Distress, Calm Cardiovascular: Yes: Regular Rate and Rhythm Respiratory: Yes: Regular, CTA Bilaterally Gastrointestinal: Yes: Normal Bowel Sounds, Soft Musculoskeletal: Yes: WNL Extremities: Yes: WNL Neurological: Yes: Alert, Oriented Psychiatric: Yes: Alert, Oriented Labs: CBC, BMP 03/06/17 05:28 03/06/17 05:28 INR, PTT INR 1.20 (0.82-1.09) H 03/01/17 08:30 Assessment/Plan Problem List - Problems (1) Overdose Code(s): T50.901A - POISONING BY UNSP DRUG/MEDS/BIOL SUBST, ACCIDENTAL, INIT Qualifiers: Encounter type: initial encounter Injury intent: undetermined intent Qualified Code(s): T50.904A - Poisoning by unspecified drugs, medicaments and biological substances, undetermined, initial encounter (2) Polypharmacy Code(s): Z79.899 - OTHER CUSTODIAL (CURRENT) DRUG THERAPY (3) Unresponsive Code(s): R41.89 - OTH SYMPTOMS AND SIGNS W COGNITIVE FUNCTIONS AND AWARENESS (4) TRENT (acute kidney injury) Code(s): N17.9 - ACUTE KIDNEY FAILURE, UNSPECIFIED (5) Rhabdomyolysis Code(s): M62.82 - RHABDOMYOLYSIS (6) Respiratory failure Code(s): J96.90 - RESPIRATORY FAILURE, UNSP, UNSP W HYPOXIA OR HYPERCAPNIA asp pna leukocytosis uti plan continue to monitor rest as per primary team supportive structure
--- NOTE | 2017-03-07 17:12 | PN ---
Progress Note, Physician History of Present Illness: doing better - Current Medication List Current Medications: Active Medications Acetaminophen (Tylenol -) 650 mg PO Q6H PRN PRN Reason: FEVER OR PAIN Bacitracin (Bacitracin -) 1 applic TP BID [facility] Last Admin: 03/06/17 21:58 Dose: 1 applic Collagenase (Santyl -) 1 applic TP DAILY [facility] Last Admin: 03/07/17 14:54 Dose: 1 applic Heparin Sodium (Porcine) (Heparin -) 5,000 unit SQ TID [facility] Last Admin: 03/07/17 14:54 Dose: 5,000 unit Famotidine/Sodium Chloride (Pepcid 20 Mg Premixed Ivpb -) 50 mls @ 100 mls/hr IVPB DAILY@0600 [facility] Last Admin: 03/07/17 05:57 Dose: 100 mls/hr Potassium Chloride (K-Dur -) 40 meq PO DAILY [facility] Last Admin: 03/07/17 09:56 Dose: 40 meq Potassium Phos/Sodium Phos (Phos-Nak Packet -) 1 packet PO TID [facility] Last Admin: 03/07/17 14:54 Dose: 1 packet Prednisone (Deltasone -) 10 mg PO DAILY [facility] Last Admin: 03/07/17 09:56 Dose: 10 mg Risperidone (Risperdal -) 1 mg PO BID [facility] Last Admin: 03/07/17 09:56 Dose: 1 mg - Objective Vital Signs: Vital Signs Temperature 99.1 F 03/07/17 14:22 Pulse Rate 100 H 03/07/17 14:22 Respiratory Rate 20 03/07/17 14:22 Blood Pressure 119/71 03/07/17 14:22 O2 Sat by Pulse Oximetry (%) 100 03/07/17 09:00 Constitutional: Yes: No Distress HENT: Yes: Atraumatic Neck: Yes: Supple Cardiovascular: Yes: Regular Rate and Rhythm Respiratory: Yes: CTA Bilaterally Gastrointestinal: Yes: Normal Bowel Sounds Extremities: Yes: WNL Neurological: Yes: Alert, Oriented Labs: CBC, BMP 03/06/17 05:28 03/06/17 05:28 INR, PTT INR 1.20 (0.82-1.09) H 03/01/17 08:30 Problem List - Problems (1) TRENT (acute kidney injury) Assessment/Plan: CR WNL Code(s): N17.9 - ACUTE KIDNEY FAILURE, UNSPECIFIED (2) Anoxic brain injury Assessment/Plan: on NC Code(s): G93.1 - ANOXIC BRAIN DAMAGE, NOT ELSEWHERE CLASSIFIED (3) Coma Assessment/Plan: awake and alert Code(s): R40.20 - UNSPECIFIED COMA Qualifiers: Coma depth: Rossy coma 3-8 Coma timing: at arrival to emergency department Qualified Code(s): R40.2432 - Rossy coma scale score 3-8, at arrival to emergency department; R40.2432 - [place] coma scale score 3-8, at arrival to emergency department; R40.2432 - Rossy coma scale score 3-8, at arrival to emergency department (4) Overdose Assessment/Plan: reportedly 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 Code(s): T50.901A - POISONING BY UNSP DRUG/MEDS/BIOL SUBST, ACCIDENTAL, INIT Qualifiers: Encounter type: initial encounter Injury intent: undetermined intent Qualified Code(s): T50.904A - Poisoning by unspecified drugs, medicaments and biological substances, undetermined, initial encounter; T50.904A - Poisoning by unspecified drugs, medicaments and biological substances, undetermined, initial encounter (5) Polypharmacy Code(s): Z79.899 - OTHER METAL DEALER (CURRENT) DRUG THERAPY (6) Respiratory failure Assessment/Plan: on NC Code(s): J96.90 - RESPIRATORY FAILURE, UNSP, UNSP W HYPOXIA OR HYPERCAPNIA Qualifiers: Chronicity: acute (7) Rhabdomyolysis Assessment/Plan: ivf resolved Code(s): M62.82 - RHABDOMYOLYSIS (8) Unresponsive Code(s): R41.89 - OTH SYMPTOMS AND SIGNS W COGNITIVE FUNCTIONS AND AWARENESS (9) UTI (urinary tract infection) Code(s): N39.0 - URINARY TRACT INFECTION, SITE NOT SPECIFIED (10) Lupus (systemic lupus erythematosus) Code(s): M32.9 - SYSTEMIC LUPUS ERYTHEMATOSUS, UNSPECIFIED (11) Myopathy Assessment/Plan: very weak in lower extremeties upper extemities much better ..can feed herself Code(s): G72.9 - MYOPATHY, UNSPECIFIED
[2017-03-08] MEDS: ACETAMINOPHEN 325 MG TABLET (FP) PO PRN ×2 (03:42→10:27)
[2017-03-08] MEDS: HEPARIN NA (PORCINE) 5,000 UNITS/ML 1ML VIAL SQ SCH ×3 (06:09→21:53)
[2017-03-08] MEDS: NAPH,MB-DB/K PH,MBDB POWDER PACKET PO SCH ×3 (06:09→21:57)
[2017-03-08] MEDS: FAMOTIDINE 20 MG/50 ML IVPB 50 ML IVPB SCH (06:09)
--- NOTE | 2017-03-08 09:36 | PN ---
Progress Note (short form) - Note Progress Note: Neurology History of Present Illness 46 year old female presented to ER completely unresponsive, [place] coma scale of 3, who was "found down" possibly for several days and last known well two days ago. Found in her own urine and feces without explanation of why. Concern for airway protection and ER intubated and put on mechanical ventilation in the ER. CT head completed and did not show acute changes. UTox positive for benzo, barbiturates, and opiods. Also with WBC of 18. Concern for drug overdose, was in ICU in close monitoring, now downgraded to telemetry. Ct head completed and did not show signs of anoxic brain injury, and patient extubated over the weekend. Now more awake, alert, responsive, tracking examiner, conversive. Able to tell me she is in the hospital, the date, name of President. MRI brain and C spine ordered, has not completed because patient does not have ability to tell us if any metal in body and staff trying to reach healthcare proxy to determine. 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 She seems to be having hallucinations of and delusions relating to people from police superintendent to a friend. Psych consulted and started on Risperdal 1mg. May need placement. Active Medications Acetaminophen (Tylenol -) 650 mg PO Q6H PRN PRN Reason: FEVER OR PAIN Last Admin: 03/08/17 03:42 Dose: 650 mg Bacitracin (Bacitracin -) 1 applic TP BID [facility] Last Admin: 03/07/17 21:22 Dose: 1 applic Collagenase (Santyl -) 1 applic TP DAILY [facility] Last Admin: 03/07/17 14:54 Dose: 1 applic Heparin Sodium (Porcine) (Heparin -) 5,000 unit SQ TID [facility] Last Admin: 03/08/17 06:09 Dose: 5,000 unit Famotidine/Sodium Chloride (Pepcid 20 Mg Premixed Ivpb -) 50 mls @ 100 mls/hr IVPB DAILY@0600 [facility] Last Admin: 03/08/17 06:09 Dose: 100 mls/hr Potassium Chloride (K-Dur -) 40 meq PO DAILY [facility] Last Admin: 03/07/17 09:56 Dose: 40 meq Potassium Phos/Sodium Phos (Phos-Nak Packet -) 1 packet PO TID [facility] Last Admin: 03/08/17 06:09 Dose: 1 packet Prednisone (Deltasone -) 10 mg PO DAILY [facility] Last Admin: 03/07/17 09:56 Dose: 10 mg Risperidone (Risperdal -) 1 mg PO BID [facility] Last Admin: 03/07/17 21:27 Dose: 1 mg *Physical Exam Vital Signs Temperature 98.7 F 03/08/17 05:18 Pulse Rate 87 03/08/17 05:18 Respiratory Rate 18 03/08/17 05:18 Blood Pressure 117/71 03/08/17 05:18 O2 Sat by Pulse Oximetry (%) 99 03/07/17 20:57 Awake, tracking examiner, verbal and cooperative, conversive, asking about going home Squeezing hand to command, raising arms or legs to command but with proximal muscle weakness Intact to tactile stimulation Finger to nose intact Lungs sounds mechanical RRR Abdomen soft Gait deferred CBCD WBC 5.9 K/mm3 (4.0-10.0) 03/06/17 05:28 RBC 3.85 M/mm3 (3.60-5.2) 03/06/17 05:28 Hgb 8.9 GM/dL (10.7-15.3) L 03/06/17 05:28 Hct 28.1 % (32.4-45.2) L 03/06/17 05:28 MCV 73.0 fl (80-96) L 03/06/17 05:28 MCHC 31.5 g/dl (32.0-36.0) L 03/06/17 05:28 RDW 22.1 % (11.6-15.6) H 03/06/17 05:28 Plt Count 205 K/MM3 (134-434) D 03/06/17 05:28 MPV 11.7 fl (7.5-11.1) H D 03/06/17 05:28 CMP Sodium 145 mmol/L (136-145) 03/06/17 05:28 Potassium 3.3 mmol/L (3.5-5.1) L 03/06/17 05:28 Chloride 109 mmol/L (98-107) H 03/06/17 05:28 Carbon Dioxide 28 mmol/L (21-32) 03/06/17 05:28 Anion Gap 8 (8-16) 03/06/17 05:28 BUN 5 mg/dL (7-18) L D 03/06/17 05:28 Creatinine 0.5 mg/dL (0.55-1.02) L 03/06/17 05:28 Creat Clearance w eGFR > 60 (>60) 03/06/17 05:28 Calcium 8.6 mg/dL (8.5-10.1) 03/06/17 05:28 Total Bilirubin 0.5 mg/dL (0.2-1.0) D 03/06/17 05:28 AST 149 U/L (15-37) H 03/06/17 05:28 ALT 95 U/L (12-78) H D 03/06/17 05:28 Alkaline Phosphatase 64 U/L (45-117) 03/06/17 05:28 Total Protein 5.2 g/dl (6.4-8.2) L 03/06/17 05:28 Albumin 2.7 g/dl (3.4-5.0) L 03/06/17 05:28 CT head reviewed Plan: 46 year old female presented to ER completely unresponsive, [place] coma scale of 3, who was "found down" possibly for several days and last known well two days ago. Found in her own urine and feces without explanation of why. Concern for airway protection and ER intubated and put on mechanical ventilation, under close observation in the ICU. CT head completed and did not show acute changes. Repeat CT head without acute changes, did not have signs of anoxic brain injury UTox positive for benzo, barbiturates, and opiods. Concern for drug overdose MRI brain and C spine pending, patient not able to consent Hydration as needed Psych consult for hallucinations Weaned from mechanical vent, comfortable on room air No evidence of seizures Mental status improving but not at baseline and likely with underlying psych disorder Started on Risperdal 1mg bid Will follow May need placement Participated with physical therapy yesterday
--- NOTE | 2017-03-08 09:41 | PN ---
Progress Note (short form) - Note Progress Note: Resting in NAD. Overall appears much better. Interactive, but remains confused. Intake & Output 03/05/17 03/06/17 03/07/17 03/08/17 23:59 23:59 23:59 23:59 Intake Total 1290 750 850 Output Total 3900 1050 4400 1000 Balance -2610 -300 -3550 -1000 Weight 174 lb 6.4 oz Last Vital Signs Temp Pulse Resp BP Pulse Ox 98.7 F 87 18 117/71 99 03/08/17 05:18 03/08/17 05:18 03/08/17 05:18 03/08/17 05:18 03/07/17 20:57 Active Medications Acetaminophen (Tylenol -) 650 mg PO Q6H PRN PRN Reason: FEVER OR PAIN Last Admin: 03/08/17 03:42 Dose: 650 mg Bacitracin (Bacitracin -) 1 applic TP BID [facility] Last Admin: 03/07/17 21:22 Dose: 1 applic Collagenase (Santyl -) 1 applic TP DAILY [facility] Last Admin: 03/07/17 14:54 Dose: 1 applic Heparin Sodium (Porcine) (Heparin -) 5,000 unit SQ TID [facility] Last Admin: 03/08/17 06:09 Dose: 5,000 unit Famotidine/Sodium Chloride (Pepcid 20 Mg Premixed Ivpb -) 50 mls @ 100 mls/hr IVPB DAILY@0600 [facility] Last Admin: 03/08/17 06:09 Dose: 100 mls/hr Potassium Chloride (K-Dur -) 40 meq PO DAILY [facility] Last Admin: 03/07/17 09:56 Dose: 40 meq Potassium Phos/Sodium Phos (Phos-Nak Packet -) 1 packet PO TID [facility] Last Admin: 03/08/17 06:09 Dose: 1 packet Prednisone (Deltasone -) 10 mg PO DAILY [facility] Last Admin: 03/07/17 09:56 Dose: 10 mg Risperidone (Risperdal -) 1 mg PO BID [facility] Last Admin: 03/07/17 21:27 Dose: 1 mg Gen: NAD but confused Heart: tachycardic, regular Lung: decreased breath sounds at the bases Abd: soft, nontender Ext: + edema ASSESSMENT AND PLAN: Altered Mental Status improving but not at baseline Acute Respiratory Failure (?) Drug Overdose Acute Kidney Injury Lupus Hypernatremia improving - Neuro workup ongoing - s/p empiric antibiotics - continue home prednisone dose for her lupus - PO as tolerated / Aspiration precautions - DVT prophylaxis - rehab/PT Dr Chambers
[2017-03-08] MEDS ORDERED: PT OWN MED DRAWER 7, Y5N ONE ×2 (10:20→20:07)
[2017-03-08] MEDS: predniSONE 10 MG TABLET (UD) PO SCH (10:25)
[2017-03-08] MEDS: BACITRACIN 15 GM TUBE TOPICAL OINTMENT TP SCH ×2 (10:25→21:57)
[2017-03-08] MEDS: POTASSIUM CHLORIDE TABS 20 MEQ TABLET.ER (FP) PO SCH (10:25)
[2017-03-08] MEDS: COLLAGENASE CLOSTRIDIUM HIST. 30 GRAMS TUBE TP SCH (10:26)
[2017-03-08] MEDS: risperiDONE 1 MG TABLET (FP) PO SCH ×2 (10:26→21:52)
--- NOTE | 2017-03-08 11:14 | PN ---
Progress Note, Physician History of Present Illness: Mental status improved, but not at baseline. - Current Medication List Current Medications: Active Medications Acetaminophen (Tylenol -) 650 mg PO Q6H PRN PRN Reason: FEVER OR PAIN Last Admin: 03/08/17 10:27 Dose: 650 mg Bacitracin (Bacitracin -) 1 applic TP BID [facility] Last Admin: 03/08/17 10:25 Dose: 1 applic Collagenase (Santyl -) 1 applic TP DAILY [facility] Last Admin: 03/08/17 10:26 Dose: 1 applic Heparin Sodium (Porcine) (Heparin -) 5,000 unit SQ TID [facility] Last Admin: 03/08/17 06:09 Dose: 5,000 unit Famotidine/Sodium Chloride (Pepcid 20 Mg Premixed Ivpb -) 50 mls @ 100 mls/hr IVPB DAILY@0600 [facility] Last Admin: 03/08/17 06:09 Dose: 100 mls/hr Potassium Chloride (K-Dur -) 40 meq PO DAILY [facility] Last Admin: 03/08/17 10:25 Dose: 40 meq Potassium Phos/Sodium Phos (Phos-Nak Packet -) 1 packet PO TID [facility] Last Admin: 03/08/17 06:09 Dose: 1 packet Prednisone (Deltasone -) 10 mg PO DAILY [facility] Last Admin: 03/08/17 10:25 Dose: 10 mg Risperidone (Risperdal -) 1 mg PO BID [facility] Last Admin: 03/08/17 10:26 Dose: 1 mg - Objective Vital Signs: Vital Signs Temperature 98.2 F 03/08/17 10:00 Pulse Rate 97 H 03/08/17 10:00 Respiratory Rate 18 03/08/17 10:00 Blood Pressure 108/69 03/08/17 10:00 O2 Sat by Pulse Oximetry (%) 99 03/07/17 20:57 Constitutional: Yes: No Distress, Calm, Thin Neck: Yes: Supple Cardiovascular: Yes: Regular Rate and Rhythm Respiratory: Yes: Regular, Diminished, On Nasal O2 Gastrointestinal: Yes: Normal Bowel Sounds, Soft Edema: No Labs: CBC, BMP 03/06/17 05:28 03/06/17 05:28 INR, PTT INR 1.20 (0.82-1.09) H 03/01/17 08:30 Problem List - Problems (1) Overdose Code(s): T50.901A - POISONING BY UNSP DRUG/MEDS/BIOL SUBST, ACCIDENTAL, INIT Qualifiers: Encounter type: initial encounter Injury intent: undetermined intent Qualified Code(s): T50.904A - Poisoning by unspecified drugs, medicaments and biological substances, undetermined, initial encounter (2) Respiratory failure Code(s): J96.90 - RESPIRATORY FAILURE, UNSP, UNSP W HYPOXIA OR HYPERCAPNIA Qualifiers: Chronicity: acute (3) Aspiration pneumonia Code(s): J69.0 - PNEUMONITIS DUE TO INHALATION OF FOOD AND VOMIT Qualifiers: Aspiration pneumonia type: due to vomit Lung location: unspecified part of lung (4) Lupus (systemic lupus erythematosus) Code(s): M32.9 - SYSTEMIC LUPUS ERYTHEMATOSUS, UNSPECIFIED (5) Anemia Code(s): D64.9 - ANEMIA, UNSPECIFIED Qualifiers: Anemia type: unspecified type Qualified Code(s): D64.9 - Anemia, unspecified Assessment/Plan 1. Post acute respiratory failure, persistent toxic metabolic encephalopathy, possible drug overdose 2. Sepsis syndrome, resolved 3. History of Lupus 5. Acute on chronic renal insufficiency, pre-renal azotemia, resolved 6. Anemia 7. Hypokalemia PLAN: 1. DVT prophylaxis, PT->rehab, replete K 2. Neurological evaluation as planned for the above noted persistent encephalopathy including brain MRI and EEG once able to consent
--- NOTE | 2017-03-08 12:01 | PN ---
Progress Note, ACCOUNTS RECEIVABLE SPECIALIST - Note Progress Note: Selected Entries 03/06/17 03/06/17 03/07/17 10:30 14:42 01:41 Breakfast 75% Lunch 50% Temperature 99.2 F 03/07/17 03/07/17 05:44 09:24 Breakfast 75% Lunch Temperature 99 F Laboratory Tests 03/06/17 05:28 WBC 5.9 Pt continues to stronger, starting to feed herself. Pt started on Risperdal. Distractible, with impaired speech initiation and very slow formulation of responses. Somewhat oriented but perseverative and quite tangential Tolerating diet. Pt would benefit from intensive POT/OT/ACCOUNTS RECEIVABLE SPECIALIST rehab, Consider Acute rehab at [facility].
--- NOTE | 2017-03-08 16:17 | PN ---
Progress Note, Physician History of Present Illness: conitnues to improve still confusion exists - Current Medication List Current Medications: Active Medications Acetaminophen (Tylenol -) 650 mg PO Q6H PRN PRN Reason: FEVER OR PAIN Last Admin: 03/08/17 10:27 Dose: 650 mg Bacitracin (Bacitracin -) 1 applic TP BID [facility] Last Admin: 03/08/17 10:25 Dose: 1 applic Collagenase (Santyl -) 1 applic TP DAILY [facility] Last Admin: 03/08/17 10:26 Dose: 1 applic Heparin Sodium (Porcine) (Heparin -) 5,000 unit SQ TID [facility] Last Admin: 03/08/17 14:00 Dose: 5,000 unit Famotidine/Sodium Chloride (Pepcid 20 Mg Premixed Ivpb -) 50 mls @ 100 mls/hr IVPB DAILY@0600 [facility] Last Admin: 03/08/17 06:09 Dose: 100 mls/hr Potassium Chloride (K-Dur -) 40 meq PO DAILY [facility] Last Admin: 03/08/17 10:25 Dose: 40 meq Potassium Phos/Sodium Phos (Phos-Nak Packet -) 1 packet PO TID [facility] Last Admin: 03/08/17 14:00 Dose: 1 packet Prednisone (Deltasone -) 10 mg PO DAILY [facility] Last Admin: 03/08/17 10:25 Dose: 10 mg Risperidone (Risperdal -) 1 mg PO BID [facility] Last Admin: 03/08/17 10:26 Dose: 1 mg - Objective Vital Signs: Vital Signs Temperature 98.8 F 03/08/17 14:29 Pulse Rate 95 H 03/08/17 14:29 Respiratory Rate 18 03/08/17 14:29 Blood Pressure 109/67 03/08/17 14:29 O2 Sat by Pulse Oximetry (%) 99 03/07/17 20:57 Constitutional: Yes: No Distress, Calm Cardiovascular: Yes: Regular Rate and Rhythm Respiratory: Yes: Regular, CTA Bilaterally Gastrointestinal: Yes: Normal Bowel Sounds, Soft Musculoskeletal: Yes: WNL Extremities: Yes: WNL Neurological: Yes: Alert Psychiatric: Yes: Alert Labs: CBC, BMP 03/06/17 05:28 03/06/17 05:28 INR, PTT INR 1.20 (0.82-1.09) H 03/01/17 08:30 Assessment/Plan Problem List - Problems (1) Overdose Code(s): T50.901A - POISONING BY UNSP DRUG/MEDS/BIOL SUBST, ACCIDENTAL, INIT Qualifiers: Encounter type: initial encounter Injury intent: undetermined intent Qualified Code(s): T50.904A - Poisoning by unspecified drugs, medicaments and biological substances, undetermined, initial encounter (2) Polypharmacy Code(s): Z79.899 - OTHER SKILLED NURSING (CURRENT) DRUG THERAPY (3) Unresponsive Code(s): R41.89 - OTH SYMPTOMS AND SIGNS W COGNITIVE FUNCTIONS AND AWARENESS (4) TRENT (acute kidney injury) Code(s): N17.9 - ACUTE KIDNEY FAILURE, UNSPECIFIED (5) Rhabdomyolysis Code(s): M62.82 - RHABDOMYOLYSIS (6) Respiratory failure Code(s): J96.90 - RESPIRATORY FAILURE, UNSP, UNSP W HYPOXIA OR HYPERCAPNIA asp pna leukocytosis uti plan continues to improve continue monitoring rest as per primary team
--- NOTE | 2017-03-08 16:58 | PN ---
Progress Note, Physician History of Present Illness: doing better - Current Medication List Current Medications: Active Medications Acetaminophen (Tylenol -) 650 mg PO Q6H PRN PRN Reason: FEVER OR PAIN Last Admin: 03/08/17 10:27 Dose: 650 mg Bacitracin (Bacitracin -) 1 applic TP BID [facility] Last Admin: 03/08/17 10:25 Dose: 1 applic Collagenase (Santyl -) 1 applic TP DAILY [facility] Last Admin: 03/08/17 10:26 Dose: 1 applic Heparin Sodium (Porcine) (Heparin -) 5,000 unit SQ TID [facility] Last Admin: 03/08/17 14:00 Dose: 5,000 unit Famotidine/Sodium Chloride (Pepcid 20 Mg Premixed Ivpb -) 50 mls @ 100 mls/hr IVPB DAILY@0600 [facility] Last Admin: 03/08/17 06:09 Dose: 100 mls/hr Potassium Chloride (K-Dur -) 40 meq PO DAILY [facility] Last Admin: 03/08/17 10:25 Dose: 40 meq Potassium Phos/Sodium Phos (Phos-Nak Packet -) 1 packet PO TID [facility] Last Admin: 03/08/17 14:00 Dose: 1 packet Prednisone (Deltasone -) 10 mg PO DAILY [facility] Last Admin: 03/08/17 10:25 Dose: 10 mg Risperidone (Risperdal -) 1 mg PO BID [facility] Last Admin: 03/08/17 10:26 Dose: 1 mg - Objective Vital Signs: Vital Signs Temperature 98.8 F 03/08/17 14:29 Pulse Rate 95 H 03/08/17 14:29 Respiratory Rate 18 03/08/17 14:29 Blood Pressure 109/67 03/08/17 14:29 O2 Sat by Pulse Oximetry (%) 100 03/08/17 09:00 Constitutional: Yes: No Distress HENT: Yes: Atraumatic Neck: Yes: Supple Cardiovascular: Yes: Regular Rate and Rhythm Respiratory: Yes: CTA Bilaterally Gastrointestinal: Yes: Normal Bowel Sounds Extremities: Yes: WNL Neurological: Yes: Alert, Other (weak in upper extremeties able to eat herself lower extremeties she can slightly elevate) Labs: CBC, BMP 03/06/17 05:28 03/06/17 05:28 INR, PTT INR 1.20 (0.82-1.09) H 03/01/17 08:30 Problem List - Problems (1) TRENT (acute kidney injury) Assessment/Plan: CR WNL Code(s): N17.9 - ACUTE KIDNEY FAILURE, UNSPECIFIED (2) Anoxic brain injury Assessment/Plan: on [place] Code(s): G93.1 - ANOXIC BRAIN DAMAGE, NOT ELSEWHERE CLASSIFIED (3) Coma Assessment/Plan: awake and alert Code(s): R40.20 - UNSPECIFIED COMA Qualifiers: Coma depth: [place] coma 3-8 Coma timing: at arrival to emergency department Qualified Code(s): R40.2432 - [place] coma scale score 3-8, at arrival to emergency department (4) Overdose Assessment/Plan: 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 Code(s): T50.901A - POISONING BY UNSP DRUG/MEDS/BIOL SUBST, ACCIDENTAL, INIT Qualifiers: Encounter type: initial encounter Injury intent: undetermined intent Qualified Code(s): T50.904A - Poisoning by unspecified drugs, medicaments and biological substances, undetermined, initial encounter (5) Polypharmacy Code(s): Z79.899 - OTHER ASSISTANT MANAGER RETAIL (CURRENT) DRUG THERAPY (6) Respiratory failure Assessment/Plan: on [place] Code(s): J96.90 - RESPIRATORY FAILURE, UNSP, UNSP W HYPOXIA OR HYPERCAPNIA Qualifiers: Chronicity: acute (7) Rhabdomyolysis Assessment/Plan: ivf resolved Code(s): M62.82 - RHABDOMYOLYSIS (8) Unresponsive Code(s): R41.89 - OTH SYMPTOMS AND SIGNS W COGNITIVE FUNCTIONS AND AWARENESS (9) UTI (urinary tract infection) Code(s): N39.0 - URINARY TRACT INFECTION, SITE NOT SPECIFIED
[2017-03-09] MEDS: ACETAMINOPHEN 325 MG TABLET (FP) PO PRN (03:13)
[2017-03-09] MEDS: FAMOTIDINE 20 MG/50 ML IVPB 50 ML IVPB SCH (05:37)
[2017-03-09] MEDS: NAPH,MB-DB/K PH,MBDB POWDER PACKET PO SCH ×3 (05:38→21:00)
[2017-03-09] MEDS: HEPARIN NA (PORCINE) 5,000 UNITS/ML 1ML VIAL SQ SCH ×3 (05:38→21:00)
[2017-03-09] MEDS ORDERED: PT OWN MED DRAWER 7, Y5N ONE ×2 (10:11→19:57)
--- NOTE | 2017-03-09 10:11 | PN ---
Progress Note (short form) - Note Progress Note: Neurology History of Present Illness 46 year old female presented to ER completely unresponsive, [place] coma scale of 3, who was "found down" possibly for several days and last known well two days prior to admission. Found in her own urine and feces without explanation of why. Concern for airway protection and ER intubated and put on mechanical ventilation in the ER. CT head completed and did not show acute changes. UTox positive for benzo, barbiturates, and opiods. Also with WBC of 18. Concern for drug overdose, was in ICU in close monitoring, downgraded to telemetry. Ct head completed and did not show signs of anoxic brain injury, and patient extubated over the weekend. Now more awake, alert, responsive, tracking examiner, conversive. Able to tell me she is in the hospital, the date, name of President. MRI brain and C spine ordered, has not completed because patient does not have ability to tell us if any metal in body and staff trying to reach healthcare proxy to determine. Question of stents in patient. Will recheck CT head since MRI not done yet. 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 Put in consult for muscle biopsy. 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 Psych consulted and started on Risperdal 1mg. May need placement. Active Medications Acetaminophen (Tylenol -) 650 mg PO Q6H PRN PRN Reason: FEVER OR PAIN Last Admin: 03/09/17 03:13 Dose: 650 mg Bacitracin (Bacitracin -) 1 applic TP BID [facility] Last Admin: 03/08/17 21:57 Dose: 1 applic Collagenase (Santyl -) 1 applic TP DAILY [facility] Last Admin: 03/08/17 10:26 Dose: 1 applic Heparin Sodium (Porcine) (Heparin -) 5,000 unit SQ TID [facility] Last Admin: 03/09/17 05:38 Dose: 5,000 unit Famotidine/Sodium Chloride (Pepcid 20 Mg Premixed Ivpb -) 50 mls @ 100 mls/hr IVPB DAILY@0600 [facility] Last Admin: 03/09/17 05:37 Dose: 100 mls/hr Potassium Chloride (K-Dur -) 40 meq PO DAILY [facility] Last Admin: 03/08/17 10:25 Dose: 40 meq Potassium Phos/Sodium Phos (Phos-Nak Packet -) 1 packet PO TID [facility] Last Admin: 03/09/17 05:38 Dose: 1 packet Prednisone (Deltasone -) 10 mg PO DAILY [facility] Last Admin: 03/08/17 10:25 Dose: 10 mg Risperidone (Risperdal -) 1 mg PO BID [facility] Last Admin: 03/08/17 21:52 Dose: 1 mg *Physical Exam Vital Signs Temperature 98 F 03/09/17 05:42 Pulse Rate 85 03/09/17 05:42 Respiratory Rate 18 03/09/17 05:42 Blood Pressure 113/67 03/09/17 05:42 O2 Sat by Pulse Oximetry (%) 100 03/08/17 20:22 Awake, tracking examiner, verbal and cooperative, conversive, asking about going home Squeezing hand to command, raising arms or legs to command but with proximal muscle weakness Intact to tactile stimulation Finger to nose intact Lungs sounds mechanical RRR Abdomen soft Gait deferred CBCD WBC 5.9 K/mm3 (4.0-10.0) 03/06/17 05:28 RBC 3.85 M/mm3 (3.60-5.2) 03/06/17 05:28 Hgb 8.9 GM/dL (10.7-15.3) L 03/06/17 05:28 Hct 28.1 % (32.4-45.2) L 03/06/17 05:28 MCV 73.0 fl (80-96) L 03/06/17 05:28 MCHC 31.5 g/dl (32.0-36.0) L 03/06/17 05:28 RDW 22.1 % (11.6-15.6) H 03/06/17 05:28 Plt Count 205 K/MM3 (134-434) D 03/06/17 05:28 MPV 11.7 fl (7.5-11.1) H D 03/06/17 05:28 CMP Sodium 145 mmol/L (136-145) 03/06/17 05:28 Potassium 3.3 mmol/L (3.5-5.1) L 03/06/17 05:28 Chloride 109 mmol/L (98-107) H 03/06/17 05:28 Carbon Dioxide 28 mmol/L (21-32) 03/06/17 05:28 Anion Gap 8 (8-16) 03/06/17 05:28 BUN 5 mg/dL (7-18) L D 03/06/17 05:28 Creatinine 0.5 mg/dL (0.55-1.02) L 03/06/17 05:28 Creat Clearance w eGFR > 60 (>60) 03/06/17 05:28 Calcium 8.6 mg/dL (8.5-10.1) 03/06/17 05:28 Total Bilirubin 0.5 mg/dL (0.2-1.0) D 03/06/17 05:28 AST 149 U/L (15-37) H 03/06/17 05:28 ALT 95 U/L (12-78) H D 03/06/17 05:28 Alkaline Phosphatase 64 U/L (45-117) 03/06/17 05:28 Total Protein 5.2 g/dl (6.4-8.2) L 03/06/17 05:28 Albumin 2.7 g/dl (3.4-5.0) L 03/06/17 05:28 CT head reviewed Plan: 46 year old female presented to ER completely unresponsive, [place] coma scale of 3, who was "found down" possibly for several days and last known well two days ago. Found in her own urine and feces without explanation of why. Concern for airway protection and ER intubated and put on mechanical ventilation, under close observation in the ICU. CT head completed and did not show acute changes. Repeat CT head without acute changes, did not have signs of anoxic brain injury UTox positive for benzo, barbiturates, and opiods. 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
[2017-03-09] MEDS: POTASSIUM CHLORIDE TABS 20 MEQ TABLET.ER (FP) PO SCH (10:13)
[2017-03-09] MEDS: risperiDONE 1 MG TABLET (FP) PO SCH ×2 (10:14→21:00)
[2017-03-09] MEDS: predniSONE 10 MG TABLET (UD) PO SCH (10:14)
[2017-03-09] MEDS: BACITRACIN 15 GM TUBE TOPICAL OINTMENT TP SCH ×2 (11:38→21:01)
[2017-03-09] MEDS: COLLAGENASE CLOSTRIDIUM HIST. 30 GRAMS TUBE TP SCH (11:38)
--- NOTE | 2017-03-09 12:40 | PN ---
Progress Note, Physician History of Present Illness: Mental status improved, more interactive. - Current Medication List Current Medications: Active Medications Acetaminophen (Tylenol -) 650 mg PO Q6H PRN PRN Reason: FEVER OR PAIN Last Admin: 03/09/17 03:13 Dose: 650 mg Bacitracin (Bacitracin -) 1 applic TP BID [facility] Last Admin: 03/09/17 11:38 Dose: 1 applic Collagenase (Santyl -) 1 applic TP DAILY [facility] Last Admin: 03/09/17 11:38 Dose: 1 applic Heparin Sodium (Porcine) (Heparin -) 5,000 unit SQ TID [facility] Last Admin: 03/09/17 05:38 Dose: 5,000 unit Famotidine/Sodium Chloride (Pepcid 20 Mg Premixed Ivpb -) 50 mls @ 100 mls/hr IVPB DAILY@0600 [facility] Last Admin: 03/09/17 05:37 Dose: 100 mls/hr Potassium Chloride (K-Dur -) 40 meq PO DAILY [facility] Last Admin: 03/09/17 10:13 Dose: 40 meq Potassium Phos/Sodium Phos (Phos-Nak Packet -) 1 packet PO TID [facility] Last Admin: 03/09/17 05:38 Dose: 1 packet Prednisone (Deltasone -) 10 mg PO DAILY [facility] Last Admin: 03/09/17 10:14 Dose: 10 mg Risperidone (Risperdal -) 1 mg PO BID [facility] Last Admin: 03/09/17 10:14 Dose: 1 mg - Objective Vital Signs: Vital Signs Temperature 97.9 F 03/09/17 09:00 Pulse Rate 91 H 03/09/17 09:00 Respiratory Rate 18 03/09/17 09:00 Blood Pressure 112/68 03/09/17 09:00 O2 Sat by Pulse Oximetry (%) 100 03/08/17 20:22 Constitutional: Yes: No Distress, Calm Neck: Yes: Supple Cardiovascular: Yes: Regular Rate and Rhythm Respiratory: Yes: Regular, CTA Bilaterally Gastrointestinal: Yes: Normal Bowel Sounds, Soft Edema: No Labs: CBC, BMP 03/06/17 05:28 03/06/17 05:28 INR, PTT INR 1.20 (0.82-1.09) H 03/01/17 08:30 Problem List - Problems (1) Overdose Code(s): T50.901A - POISONING BY UNSP DRUG/MEDS/BIOL SUBST, ACCIDENTAL, INIT Qualifiers: Encounter type: initial encounter Injury intent: undetermined intent Qualified Code(s): T50.904A - Poisoning by unspecified drugs, medicaments and biological substances, undetermined, initial encounter (2) Respiratory failure Code(s): J96.90 - RESPIRATORY FAILURE, UNSP, UNSP W HYPOXIA OR HYPERCAPNIA Qualifiers: Chronicity: acute (3) Aspiration pneumonia Code(s): J69.0 - PNEUMONITIS DUE TO INHALATION OF FOOD AND VOMIT Qualifiers: Aspiration pneumonia type: due to vomit Lung location: unspecified part of lung (4) Lupus (systemic lupus erythematosus) Code(s): M32.9 - SYSTEMIC LUPUS ERYTHEMATOSUS, UNSPECIFIED (5) Anemia Code(s): D64.9 - ANEMIA, UNSPECIFIED Qualifiers: Anemia type: unspecified type Qualified Code(s): D64.9 - Anemia, unspecified Assessment/Plan 1. Post acute respiratory failure, persistent toxic metabolic encephalopathy, possible drug overdose 2. Sepsis syndrome, resolved 3. History of Lupus 5. Acute on chronic renal insufficiency, pre-renal azotemia, resolved 6. Anemia 7. Hypokalemia 8. 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 DVT prophylaxis, steroids with GI prophylaxis, PT->rehab, replete K 2. Neurological evaluation as planned for the above noted persistent encephalopathy including brain MRI and EEG once able to consent 3. Planned for muscle biopsy
--- NOTE | 2017-03-09 14:09 | PN ---
Progress Note, Physician History of Present Illness: patient more awake and alert continues to improve - Current Medication List Current Medications: Active Medications Acetaminophen (Tylenol -) 650 mg PO Q6H PRN PRN Reason: FEVER OR PAIN Last Admin: 03/09/17 03:13 Dose: 650 mg Bacitracin (Bacitracin -) 1 applic TP BID [facility] Last Admin: 03/09/17 11:38 Dose: 1 applic Collagenase (Santyl -) 1 applic TP DAILY [facility] Last Admin: 03/09/17 11:38 Dose: 1 applic Heparin Sodium (Porcine) (Heparin -) 5,000 unit SQ TID [facility] Last Admin: 03/09/17 05:38 Dose: 5,000 unit Famotidine/Sodium Chloride (Pepcid 20 Mg Premixed Ivpb -) 50 mls @ 100 mls/hr IVPB DAILY@0600 [facility] Last Admin: 03/09/17 05:37 Dose: 100 mls/hr Potassium Chloride (K-Dur -) 40 meq PO DAILY [facility] Last Admin: 03/09/17 10:13 Dose: 40 meq Potassium Phos/Sodium Phos (Phos-Nak Packet -) 1 packet PO TID [facility] Last Admin: 03/09/17 05:38 Dose: 1 packet Prednisone (Deltasone -) 10 mg PO DAILY [facility] Last Admin: 03/09/17 10:14 Dose: 10 mg Risperidone (Risperdal -) 1 mg PO BID [facility] Last Admin: 03/09/17 10:14 Dose: 1 mg - Objective Vital Signs: Vital Signs Temperature 97.9 F 03/09/17 09:00 Pulse Rate 91 H 03/09/17 09:00 Respiratory Rate 18 03/09/17 09:00 Blood Pressure 112/68 03/09/17 09:00 O2 Sat by Pulse Oximetry (%) 97 03/09/17 09:00 Constitutional: Yes: No Distress, Calm Cardiovascular: Yes: Regular Rate and Rhythm Respiratory: Yes: Regular, CTA Bilaterally Gastrointestinal: Yes: Normal Bowel Sounds, Soft Musculoskeletal: Yes: WNL Extremities: Yes: WNL Neurological: Yes: Alert Psychiatric: Yes: Alert Labs: CBC, BMP 03/06/17 05:28 03/06/17 05:28 INR, PTT INR 1.20 (0.82-1.09) H 03/01/17 08:30 Assessment/Plan Problem List - Problems (1) Overdose Code(s): T50.901A - POISONING BY UNSP DRUG/MEDS/BIOL SUBST, ACCIDENTAL, INIT Qualifiers: Encounter type: initial encounter Injury intent: undetermined intent Qualified Code(s): T50.904A - Poisoning by unspecified drugs, medicaments and biological substances, undetermined, initial encounter (2) Polypharmacy Code(s): Z79.899 - OTHER GROUP HOME (CURRENT) DRUG THERAPY (3) Unresponsive Code(s): R41.89 - OTH SYMPTOMS AND SIGNS W COGNITIVE FUNCTIONS AND AWARENESS (4) TRENT (acute kidney injury) Code(s): N17.9 - ACUTE KIDNEY FAILURE, UNSPECIFIED (5) Rhabdomyolysis Code(s): M62.82 - RHABDOMYOLYSIS (6) Respiratory failure Code(s): J96.90 - RESPIRATORY FAILURE, UNSP, UNSP W HYPOXIA OR HYPERCAPNIA asp pna leukocytosis uti plan continues to improve continue monitoring rest as per primary team will evaluate the ct scan
--- NOTE | 2017-03-09 22:01 | PN ---
Progress Note, Physician History of Present Illness: No new changes - Current Medication List Current Medications: Active Medications Acetaminophen (Tylenol -) 650 mg PO Q6H PRN PRN Reason: FEVER OR PAIN Last Admin: 03/09/17 03:13 Dose: 650 mg Bacitracin (Bacitracin -) 1 applic TP BID [facility] Last Admin: 03/09/17 21:01 Dose: 1 applic Collagenase (Santyl -) 1 applic TP DAILY [facility] Last Admin: 03/09/17 11:38 Dose: 1 applic Heparin Sodium (Porcine) (Heparin -) 5,000 unit SQ TID [facility] Last Admin: 03/09/17 21:00 Dose: 5,000 unit Famotidine/Sodium Chloride (Pepcid 20 Mg Premixed Ivpb -) 50 mls @ 100 mls/hr IVPB DAILY@0600 [facility] Last Admin: 03/09/17 05:37 Dose: 100 mls/hr Potassium Chloride (K-Dur -) 40 meq PO DAILY [facility] Last Admin: 03/09/17 10:13 Dose: 40 meq Potassium Phos/Sodium Phos (Phos-Nak Packet -) 1 packet PO TID [facility] Last Admin: 03/09/17 21:00 Dose: 1 packet Prednisone (Deltasone -) 10 mg PO DAILY [facility] Last Admin: 03/09/17 10:14 Dose: 10 mg Risperidone (Risperdal -) 1 mg PO BID [facility] Last Admin: 03/09/17 21:00 Dose: 1 mg - Objective Vital Signs: Vital Signs Temperature 98.3 F 03/09/17 20:57 Pulse Rate 100 H 03/09/17 20:57 Respiratory Rate 18 03/09/17 20:57 Blood Pressure 126/80 03/09/17 20:57 O2 Sat by Pulse Oximetry (%) 97 03/09/17 09:00 Constitutional: Yes: No Distress Neck: Yes: WNL, Supple Cardiovascular: Yes: WNL, Regular Rate and Rhythm Respiratory: Yes: WNL, Regular, CTA Bilaterally Gastrointestinal: Yes: WNL, Normal Bowel Sounds, Soft Labs: CBC, BMP 03/06/17 05:28 03/06/17 05:28 INR, PTT INR 1.20 (0.82-1.09) H 03/01/17 08:30 Problem List - Problems (1) Altered mental state Code(s): R41.82 - ALTERED MENTAL STATUS, UNSPECIFIED (2) Lupus (systemic lupus erythematosus) Code(s): M32.9 - SYSTEMIC LUPUS ERYTHEMATOSUS, UNSPECIFIED (3) Respiratory failure Code(s): J96.90 - RESPIRATORY FAILURE, UNSP, UNSP W HYPOXIA OR HYPERCAPNIA Qualifiers: Chronicity: acute (4) Sepsis Code(s): A41.9 - SEPSIS, UNSPECIFIED ORGANISM
[2017-03-10] MEDS: FAMOTIDINE 20 MG/50 ML IVPB 50 ML IVPB SCH (06:41)
[2017-03-10] MEDS: HEPARIN NA (PORCINE) 5,000 UNITS/ML 1ML VIAL SQ SCH ×3 (06:41→21:10)
[2017-03-10] MEDS: NAPH,MB-DB/K PH,MBDB POWDER PACKET PO SCH ×3 (06:41→21:10)
[2017-03-10] MEDS ORDERED: PT OWN MED DRAWER 7, Y5N ONE ×2 (09:59→19:51)
[2017-03-10] MEDS: BACITRACIN 15 GM TUBE TOPICAL OINTMENT TP SCH ×2 (10:00→21:11)
[2017-03-10] MEDS: risperiDONE 1 MG TABLET (FP) PO SCH ×2 (10:01→21:10)
[2017-03-10] MEDS: predniSONE 10 MG TABLET (UD) PO SCH (10:02)
[2017-03-10] MEDS: POTASSIUM CHLORIDE TABS 20 MEQ TABLET.ER (FP) PO SCH (10:02)
--- NOTE | 2017-03-10 11:55 | PN ---
Progress Note, Physician Chief Complaint: Events noted Not in distress History of Present Illness: Patient was seen and examined. Awake and alert. Chart was reviewed Denies chest pain, SOB or palpitations - Current Medication List Current Medications: Active Medications Acetaminophen (Tylenol -) 650 mg PO Q6H PRN PRN Reason: FEVER OR PAIN Last Admin: 03/09/17 03:13 Dose: 650 mg Bacitracin (Bacitracin -) 1 applic TP BID [facility] Last Admin: 03/10/17 10:00 Dose: 1 applic Collagenase (Santyl -) 1 applic TP DAILY [facility] Last Admin: 03/09/17 11:38 Dose: 1 applic Heparin Sodium (Porcine) (Heparin -) 5,000 unit SQ TID [facility] Last Admin: 03/10/17 06:41 Dose: 5,000 unit Famotidine/Sodium Chloride (Pepcid 20 Mg Premixed Ivpb -) 50 mls @ 100 mls/hr IVPB DAILY@0600 [facility] Last Admin: 03/10/17 06:41 Dose: 100 mls/hr Potassium Chloride (K-Dur -) 40 meq PO DAILY [facility] Last Admin: 03/10/17 10:02 Dose: 40 meq Potassium Phos/Sodium Phos (Phos-Nak Packet -) 1 packet PO TID [facility] Last Admin: 03/10/17 06:41 Dose: 1 packet Prednisone (Deltasone -) 10 mg PO DAILY [facility] Last Admin: 03/09/17 10:14 Dose: 10 mg Risperidone (Risperdal -) 1 mg PO BID [facility] Last Admin: 03/10/17 10:01 Dose: 1 mg - Objective Vital Signs: Vital Signs Temperature 97.7 F 03/10/17 06:00 Pulse Rate 90 03/10/17 06:00 Respiratory Rate 20 03/10/17 06:00 Blood Pressure 99/59 03/10/17 06:00 O2 Sat by Pulse Oximetry (%) 97 03/09/17 21:00 Neck: Yes: Supple Cardiovascular: Yes: Regular Rate and Rhythm, S1, S2 Respiratory: Yes: CTA Bilaterally Gastrointestinal: Yes: Normal Bowel Sounds, Soft. No: Tenderness Edema: No Labs: CBC, BMP 03/06/17 05:28 03/06/17 05:28 INR, PTT INR 1.20 (0.82-1.09) H 03/01/17 08:30 Problem List - Problems (1) Lupus (systemic lupus erythematosus) Code(s): M32.9 - SYSTEMIC LUPUS ERYTHEMATOSUS, UNSPECIFIED (2) Rhabdomyolysis Code(s): M62.82 - RHABDOMYOLYSIS (3) Anemia Code(s): D64.9 - ANEMIA, UNSPECIFIED Qualifiers: Anemia type: unspecified type Qualified Code(s): D64.9 - Anemia, unspecified; D64.9 - Anemia, unspecified (4) Overdose Code(s): T50.901A - POISONING BY UNSP DRUG/MEDS/BIOL SUBST, ACCIDENTAL, INIT Qualifiers: Encounter type: initial encounter Injury intent: undetermined intent Qualified Code(s): T50.904A - Poisoning by unspecified drugs, medicaments and biological substances, undetermined, initial encounter; T50.904A - Poisoning by unspecified drugs, medicaments and biological substances, undetermined, initial encounter (5) Sepsis Code(s): A41.9 - SEPSIS, UNSPECIFIED ORGANISM (6) Myopathy Code(s): G72.9 - MYOPATHY, UNSPECIFIED Assessment/Plan 1. Post acute respiratory failure, persistent toxic metabolic encephalopathy, possible drug overdose 2. Sepsis syndrome, resolved 3. History of Lupus 5. Acute on chronic renal insufficiency, pre-renal azotemia, resolved 6. Anemia 7. Hypokalemia 8. Critical Illness Myopathy on EMG PLAN: 1. DVT prophylaxis, steroids with GI prophylaxis 2. PT and rehab 3. Neurological evaluation as planned for the above noted persistent encephalopathy 4. Muscle biopsy as recommended Further plans are to follow Ludwig Pedersen MD
--- NOTE | 2017-03-10 11:58 | PN ---
Progress Note, Physician History of Present Illness: doing better..much improved answers simple questions - Current Medication List Current Medications: Active Medications Acetaminophen (Tylenol -) 650 mg PO Q6H PRN PRN Reason: FEVER OR PAIN Last Admin: 03/09/17 03:13 Dose: 650 mg Bacitracin (Bacitracin -) 1 applic TP BID [facility] Last Admin: 03/10/17 10:00 Dose: 1 applic Collagenase (Santyl -) 1 applic TP DAILY [facility] Last Admin: 03/09/17 11:38 Dose: 1 applic Heparin Sodium (Porcine) (Heparin -) 5,000 unit SQ TID [facility] Last Admin: 03/10/17 06:41 Dose: 5,000 unit Famotidine/Sodium Chloride (Pepcid 20 Mg Premixed Ivpb -) 50 mls @ 100 mls/hr IVPB DAILY@0600 [facility] Last Admin: 03/10/17 06:41 Dose: 100 mls/hr Potassium Chloride (K-Dur -) 40 meq PO DAILY [facility] Last Admin: 03/10/17 10:02 Dose: 40 meq Potassium Phos/Sodium Phos (Phos-Nak Packet -) 1 packet PO TID [facility] Last Admin: 03/10/17 06:41 Dose: 1 packet Prednisone (Deltasone -) 10 mg PO DAILY [facility] Last Admin: 03/09/17 10:14 Dose: 10 mg Risperidone (Risperdal -) 1 mg PO BID [facility] Last Admin: 03/10/17 10:01 Dose: 1 mg - Objective Vital Signs: Vital Signs Temperature 97.7 F 03/10/17 06:00 Pulse Rate 90 03/10/17 06:00 Respiratory Rate 20 03/10/17 06:00 Blood Pressure 99/59 03/10/17 06:00 O2 Sat by Pulse Oximetry (%) 97 03/09/17 21:00 Constitutional: Yes: No Distress HENT: Yes: Atraumatic Neck: Yes: Supple Cardiovascular: Yes: Regular Rate and Rhythm Respiratory: Yes: CTA Bilaterally Gastrointestinal: Yes: Normal Bowel Sounds Extremities: Yes: WNL Neurological: Yes: Alert, Other (pt weak b/l fantasma able to lift better strength in upper extremity) Labs: CBC, BMP 03/06/17 05:28 03/06/17 05:28 INR, PTT INR 1.20 (0.82-1.09) H 03/01/17 08:30 Problem List - Problems (1) TRENT (acute kidney injury) Assessment/Plan: CR WNL Code(s): N17.9 - ACUTE KIDNEY FAILURE, UNSPECIFIED (2) Anoxic brain injury Assessment/Plan: on [place] Code(s): G93.1 - ANOXIC BRAIN DAMAGE, NOT ELSEWHERE CLASSIFIED (3) Coma Assessment/Plan: awake and alert Code(s): R40.20 - UNSPECIFIED COMA Qualifiers: Coma depth: [place]y coma 3-8 Coma timing: at arrival to emergency department Qualified Code(s): R40.2432 - [place] coma scale score 3-8, at arrival to emergency department; R40.2432 - [place] coma scale score 3-8, at arrival to emergency department; R40.2432 - [place] coma scale score 3-8, at arrival to emergency department (4) Overdose Assessment/Plan: reportedly pt is on pain meds per car hostler Code(s): T50.901A - POISONING BY UNSP DRUG/MEDS/BIOL SUBST, ACCIDENTAL, INIT Qualifiers: Encounter type: initial encounter Injury intent: undetermined intent Qualified Code(s): T50.904A - Poisoning by unspecified drugs, medicaments and biological substances, undetermined, initial encounter; T50.904A - Poisoning by unspecified drugs, medicaments and biological substances, undetermined, initial encounter (5) Polypharmacy Code(s): Z79.899 - OTHER [facility] (CURRENT) DRUG THERAPY (6) Respiratory failure Assessment/Plan: on [place] Code(s): J96.90 - RESPIRATORY FAILURE, UNSP, UNSP W HYPOXIA OR HYPERCAPNIA Qualifiers: Chronicity: acute (7) Rhabdomyolysis Assessment/Plan: ivf resolved Code(s): M62.82 - RHABDOMYOLYSIS (8) Unresponsive Code(s): R41.89 - OTH SYMPTOMS AND SIGNS W COGNITIVE FUNCTIONS AND AWARENESS (9) UTI (urinary tract infection) Assessment/Plan: not on abx anymore id on board cxs noted Code(s): N39.0 - URINARY TRACT INFECTION, SITE NOT SPECIFIED (10) Lupus (systemic lupus erythematosus) Code(s): M32.9 - SYSTEMIC LUPUS ERYTHEMATOSUS, UNSPECIFIED (11) Myopathy Assessment/Plan: very weak in lower extremeties upper extemities much better ..can feed herself Code(s): G72.9 - MYOPATHY, UNSPECIFIED
--- NOTE | 2017-03-10 13:19 | PN ---
Progress Note (short form) - Note Progress Note: CC Initial presentation for AMS now having lower extremity weakness HPI 46 year old female history of lupus, and foudn to have unresponsive on initial presentation and have high cpk. She has two ct head adn unremarkable. She is improving menta status flood , though she have weakness in lower extremity. She denies any weakness in upper extrmeity or sensory loss . She still have urinary catheter Medication include prednisone, Riperidone, and Famotidine Neurological Examiantion Alert oriented x 3 CN all intact, eomi and no face asymmetry moving all extremity there is hip flexion and knee extension grade 4 and rest of strength is normal in lower extremity sensation is normal refle xare diminished ct head, eeg report reviewed Assessment 1. change in mental status due to drug overdose , improving 2. lower extremity weakness could be steroid induced myopathy vs critical illness mypathy( as indicated on emg), patient is waiting for muslce biopsy advise to continue PT and supportive treatment Thanking you so much Rahul Allen MD
[2017-03-10] MEDS: COLLAGENASE CLOSTRIDIUM HIST. 30 GRAMS TUBE TP SCH (13:30)
--- NOTE | 2017-03-10 14:37 | PN ---
Progress Note, Physician History of Present Illness: Pt seen and examined. Chart/labs/imaging results reviewed. Events noted. Pt is alert, responsive, afebrile. Denies any specific complaints. LE weakness. - Current Medication List Current Medications: Active Medications Acetaminophen (Tylenol -) 650 mg PO Q6H PRN PRN Reason: FEVER OR PAIN Last Admin: 03/09/17 03:13 Dose: 650 mg Bacitracin (Bacitracin -) 1 applic TP BID [facility] Last Admin: 03/10/17 10:00 Dose: 1 applic Collagenase (Santyl -) 1 applic TP DAILY [facility] Last Admin: 03/09/17 11:38 Dose: 1 applic Heparin Sodium (Porcine) (Heparin -) 5,000 unit SQ TID [facility] Last Admin: 03/10/17 06:41 Dose: 5,000 unit Famotidine/Sodium Chloride (Pepcid 20 Mg Premixed Ivpb -) 50 mls @ 100 mls/hr IVPB DAILY@0600 [facility] Last Admin: 03/10/17 06:41 Dose: 100 mls/hr Potassium Chloride (K-Dur -) 40 meq PO DAILY [facility] Last Admin: 03/10/17 10:02 Dose: 40 meq Potassium Phos/Sodium Phos (Phos-Nak Packet -) 1 packet PO TID [facility] Last Admin: 03/10/17 06:41 Dose: 1 packet Prednisone (Deltasone -) 10 mg PO DAILY [facility] Last Admin: 03/09/17 10:14 Dose: 10 mg Risperidone (Risperdal -) 1 mg PO BID [facility] Last Admin: 03/10/17 10:01 Dose: 1 mg - Objective Vital Signs: Vital Signs Temperature 97.7 F 03/10/17 06:00 Pulse Rate 90 03/10/17 06:00 Respiratory Rate 20 03/10/17 06:00 Blood Pressure 99/59 03/10/17 06:00 O2 Sat by Pulse Oximetry (%) 97 03/09/17 21:00 Constitutional: Yes: No Distress HENT: Yes: WNL Neck: Yes: Supple Cardiovascular: Yes: Regular Rate and Rhythm Respiratory: Yes: Regular Gastrointestinal: Yes: Normal Bowel Sounds, Soft Genitourinary: Yes: WNL, [place] Present (clear yellow urine draining) Musculoskeletal: Yes: Muscle Weakness Neurological: Yes: Alert Labs: CBC, BMP 03/06/17 05:28 03/06/17 05:28 INR, PTT INR 1.20 (0.82-1.09) H 03/01/17 08:30 - ....Imaging Chest X-ray: Report Reviewed Problem List - Problems (1) Altered mental state Code(s): R41.82 - ALTERED MENTAL STATUS, UNSPECIFIED (2) Aspiration pneumonia Code(s): J69.0 - PNEUMONITIS DUE TO INHALATION OF FOOD AND VOMIT Qualifiers: Aspiration pneumonia type: due to vomit Lung location: unspecified part of lung (3) Coma Code(s): R40.20 - UNSPECIFIED COMA Qualifiers: Coma depth: Rossy coma 3-8 Coma timing: at arrival to emergency department Qualified Code(s): R40.2432 - [place] coma scale score 3-8, at arrival to emergency department (4) Lupus (systemic lupus erythematosus) Code(s): M32.9 - SYSTEMIC LUPUS ERYTHEMATOSUS, UNSPECIFIED (5) Overdose Code(s): T50.901A - POISONING BY UNSP DRUG/MEDS/BIOL SUBST, ACCIDENTAL, INIT Qualifiers: Encounter type: initial encounter Injury intent: undetermined intent Qualified Code(s): T50.904A - Poisoning by unspecified drugs, medicaments and biological substances, undetermined, initial encounter (6) Respiratory failure Code(s): J96.90 - RESPIRATORY FAILURE, UNSP, UNSP W HYPOXIA OR HYPERCAPNIA Qualifiers: Chronicity: acute (7) Rhabdomyolysis Code(s): M62.82 - RHABDOMYOLYSIS (8) UTI (urinary tract infection) Code(s): N39.0 - URINARY TRACT INFECTION, SITE NOT SPECIFIED (9) Unresponsive Code(s): R41.89 - OTH SYMPTOMS AND SIGNS W COGNITIVE FUNCTIONS AND AWARENESS Assessment/Plan Pt appears to have improved - continue monitor off antibiotics neurology followup
[2017-03-11] MEDS: NAPH,MB-DB/K PH,MBDB POWDER PACKET PO SCH ×4 (05:37→21:37)
[2017-03-11] MEDS: FAMOTIDINE 20 MG/50 ML IVPB 50 ML IVPB SCH (05:38)
[2017-03-11] MEDS: HEPARIN NA (PORCINE) 5,000 UNITS/ML 1ML VIAL SQ SCH ×3 (05:38→21:36)
--- NOTE | 2017-03-11 09:49 | PN ---
Progress Note, Physician Chief Complaint: Events noted Not in distress History of Present Illness: Patient was seen and examined. Awake and alert. Chart was reviewed Denies chest pain, SOB or palpitations - Current Medication List Current Medications: Active Medications Acetaminophen (Tylenol -) 650 mg PO Q6H PRN PRN Reason: FEVER OR PAIN Last Admin: 03/09/17 03:13 Dose: 650 mg Bacitracin (Bacitracin -) 1 applic TP BID [facility] Last Admin: 03/10/17 21:11 Dose: 1 applic Collagenase (Santyl -) 1 applic TP DAILY [facility] Last Admin: 03/10/17 13:30 Dose: 1 applic Heparin Sodium (Porcine) (Heparin -) 5,000 unit SQ TID [facility] Last Admin: 03/11/17 05:38 Dose: 5,000 unit Famotidine/Sodium Chloride (Pepcid 20 Mg Premixed Ivpb -) 50 mls @ 100 mls/hr IVPB DAILY@0600 [facility] Last Admin: 03/11/17 05:38 Dose: 100 mls/hr Potassium Chloride (K-Dur -) 40 meq PO DAILY [facility] Last Admin: 03/10/17 10:02 Dose: 40 meq Potassium Phos/Sodium Phos (Phos-Nak Packet -) 1 packet PO TID [facility] Last Admin: 03/11/17 05:46 Dose: 1 packet Prednisone (Deltasone -) 10 mg PO DAILY [facility] Last Admin: 03/10/17 10:02 Dose: 10 mg Risperidone (Risperdal -) 1 mg PO BID [facility] Last Admin: 03/10/17 21:10 Dose: 1 mg - Objective Vital Signs: Vital Signs Temperature 99.2 F 03/11/17 05:36 Pulse Rate 98 H 03/11/17 05:36 Respiratory Rate 16 03/11/17 05:36 Blood Pressure 124/72 03/11/17 05:36 O2 Sat by Pulse Oximetry (%) 98 03/10/17 20:46 Neck: Yes: Supple Cardiovascular: Yes: Regular Rate and Rhythm, S1, S2 Respiratory: Yes: CTA Bilaterally Gastrointestinal: Yes: Normal Bowel Sounds, Soft. No: Tenderness Edema: No Problem List - Problems (1) Lupus (systemic lupus erythematosus) Code(s): M32.9 - SYSTEMIC LUPUS ERYTHEMATOSUS, UNSPECIFIED (2) Rhabdomyolysis Code(s): M62.82 - RHABDOMYOLYSIS (3) Anemia Code(s): D64.9 - ANEMIA, UNSPECIFIED Qualifiers: Anemia type: unspecified type Qualified Code(s): D64.9 - Anemia, unspecified; D64.9 - Anemia, unspecified (4) Overdose Code(s): T50.901A - POISONING BY UNSP DRUG/MEDS/BIOL SUBST, ACCIDENTAL, INIT Qualifiers: Encounter type: initial encounter Injury intent: undetermined intent Qualified Code(s): T50.904A - Poisoning by unspecified drugs, medicaments and biological substances, undetermined, initial encounter; T50.904A - Poisoning by unspecified drugs, medicaments and biological substances, undetermined, initial encounter (5) Sepsis Code(s): A41.9 - SEPSIS, UNSPECIFIED ORGANISM (6) Myopathy Code(s): G72.9 - MYOPATHY, UNSPECIFIED Assessment/Plan 1. Post acute respiratory failure, persistent toxic metabolic encephalopathy, possible drug overdose 2. Sepsis syndrome, resolved 3. History of Lupus 5. Acute on chronic renal insufficiency, pre-renal azotemia, resolved 6. Anemia 7. Hypokalemia 8. Critical Illness Myopathy on EMG PLAN: 1. DVT prophylaxis, steroids with GI prophylaxis 2. PT and rehab 3. Neurological evaluation as planned 4. Muscle biopsy as recommended Further plans are to follow. No specific cardiac evaluation is planned a this time Ludwig Pedersen MD
[2017-03-11] MEDS ORDERED: PT OWN MED DRAWER 7, Y5N ONE (09:58)
[2017-03-11] MEDS: risperiDONE 1 MG TABLET (FP) PO SCH ×2 (09:59→21:37)
[2017-03-11] MEDS: POTASSIUM CHLORIDE TABS 20 MEQ TABLET.ER (FP) PO SCH (09:59)
[2017-03-11] MEDS: predniSONE 10 MG TABLET (UD) PO SCH (09:59)
[2017-03-11] MEDS: BACITRACIN 15 GM TUBE TOPICAL OINTMENT TP SCH ×2 (09:59→21:35)
--- NOTE | 2017-03-11 12:02 | PN ---
Progress Note (short form) - Note Progress Note: PULMONARY CHART REVIEWED RESPONDS TO SIMPLE QUESTIONS LOW GRADE TEMP CONTINUES ANICTERIC CLEAR B/L ANTERIOR BREATH SOUNDS S1S2 BS+ NO EDEMA LABS/MEDS/IMAGING/NOTES REVIEWED Altered Mental Status improving Acute Respiratory Failure resolved Drug Overdose Acute Kidney Injury Lupus Hypernatremia improving - for MRI brain - s/p empiric antibiotics - monitor urine output, creatinine - replete lytes - continue home prednisone dose for her lupus - PO as tolerated - DVT prophylaxis - rehab/PT - neuro follow up Heath DIAZ MD
--- NOTE | 2017-03-11 12:59 | PN ---
Progress Note, Physician History of Present Illness: answers simple questions - Current Medication List Current Medications: Active Medications Acetaminophen (Tylenol -) 650 mg PO Q6H PRN PRN Reason: FEVER OR PAIN Last Admin: 03/09/17 03:13 Dose: 650 mg Bacitracin (Bacitracin -) 1 applic TP BID [facility] Last Admin: 03/11/17 09:59 Dose: 1 applic Collagenase (Santyl -) 1 applic TP DAILY [facility] Last Admin: 03/10/17 13:30 Dose: 1 applic Heparin Sodium (Porcine) (Heparin -) 5,000 unit SQ TID [facility] Last Admin: 03/11/17 05:38 Dose: 5,000 unit Famotidine/Sodium Chloride (Pepcid 20 Mg Premixed Ivpb -) 50 mls @ 100 mls/hr IVPB DAILY@0600 [facility] Last Admin: 03/11/17 05:38 Dose: 100 mls/hr Potassium Chloride (K-Dur -) 40 meq PO DAILY [facility] Last Admin: 03/11/17 09:59 Dose: 40 meq Potassium Phos/Sodium Phos (Phos-Nak Packet -) 1 packet PO TID [facility] Last Admin: 03/11/17 05:46 Dose: 1 packet Prednisone (Deltasone -) 10 mg PO DAILY [facility] Last Admin: 03/11/17 09:59 Dose: 10 mg Risperidone (Risperdal -) 1 mg PO BID [facility] Last Admin: 03/11/17 09:59 Dose: 1 mg - Objective Vital Signs: Vital Signs Temperature 99.2 F 03/11/17 05:36 Pulse Rate 98 H 03/11/17 05:36 Respiratory Rate 16 03/11/17 05:36 Blood Pressure 124/72 03/11/17 05:36 O2 Sat by Pulse Oximetry (%) 98 03/10/17 20:46 Constitutional: Yes: No Distress HENT: Yes: Atraumatic Neck: Yes: Supple Cardiovascular: Yes: Regular Rate and Rhythm Respiratory: Yes: CTA Bilaterally Gastrointestinal: Yes: Normal Bowel Sounds Extremities: Yes: WNL Neurological: Yes: Alert, Weakness ...Motor Strength: LLE, RLE Labs: CBC, BMP 03/06/17 05:28 03/06/17 05:28 INR, PTT INR 1.20 (0.82-1.09) H 03/01/17 08:30 Problem List - Problems (1) TRENT (acute kidney injury) Assessment/Plan: CR WNL Code(s): N17.9 - ACUTE KIDNEY FAILURE, UNSPECIFIED (2) Anoxic brain injury Assessment/Plan: on NC Code(s): G93.1 - ANOXIC BRAIN DAMAGE, NOT ELSEWHERE CLASSIFIED (3) Coma Assessment/Plan: awake and alert Code(s): R40.20 - UNSPECIFIED COMA Qualifiers: Coma depth: [place] coma 3-8 Coma timing: at arrival to emergency department Qualified Code(s): R40.2432 - [place] coma scale score 3-8, at arrival to emergency department; R40.2432 - [place] coma scale score 3-8, at arrival to emergency department; R40.2432 - [place] coma scale score 3-8, at arrival to emergency department (4) Overdose Assessment/Plan: reportedly pt is on pain meds 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 Code(s): T50.901A - POISONING BY UNSP DRUG/MEDS/BIOL SUBST, ACCIDENTAL, INIT Qualifiers: Encounter type: initial encounter Injury intent: undetermined intent Qualified Code(s): T50.904A - Poisoning by unspecified drugs, medicaments and biological substances, undetermined, initial encounter; T50.904A - Poisoning by unspecified drugs, medicaments and biological substances, undetermined, initial encounter (5) Polypharmacy Code(s): Z79.899 - OTHER [facility] (CURRENT) DRUG THERAPY (6) Respiratory failure Assessment/Plan: on NC Code(s): J96.90 - RESPIRATORY FAILURE, UNSP, UNSP W HYPOXIA OR HYPERCAPNIA Qualifiers: Chronicity: acute (7) Rhabdomyolysis Assessment/Plan: ivf resolved Code(s): M62.82 - RHABDOMYOLYSIS (8) Unresponsive Code(s): R41.89 - OTH SYMPTOMS AND SIGNS W COGNITIVE FUNCTIONS AND AWARENESS (9) UTI (urinary tract infection) Assessment/Plan: not on abx anymore id on board cxs noted Code(s): N39.0 - URINARY TRACT INFECTION, SITE NOT SPECIFIED (10) Lupus (systemic lupus erythematosus) Code(s): M32.9 - SYSTEMIC LUPUS ERYTHEMATOSUS, UNSPECIFIED (11) Myopathy Assessment/Plan: very weak in lower extremeties upper extemities much better ..can feed herself Code(s): G72.9 - MYOPATHY, UNSPECIFIED
--- NOTE | 2017-03-11 13:52 | PN ---
Progress Note, Physician History of Present Illness: Pt currently alert and responsive. Denies any specific complaints. - Current Medication List Current Medications: Active Medications Acetaminophen (Tylenol -) 650 mg PO Q6H PRN PRN Reason: FEVER OR PAIN Last Admin: 03/09/17 03:13 Dose: 650 mg Bacitracin (Bacitracin -) 1 applic TP BID [facility] Last Admin: 03/11/17 09:59 Dose: 1 applic Collagenase (Santyl -) 1 applic TP DAILY [facility] Last Admin: 03/10/17 13:30 Dose: 1 applic Heparin Sodium (Porcine) (Heparin -) 5,000 unit SQ TID [facility] Last Admin: 03/11/17 05:38 Dose: 5,000 unit Famotidine/Sodium Chloride (Pepcid 20 Mg Premixed Ivpb -) 50 mls @ 100 mls/hr IVPB DAILY@0600 [facility] Last Admin: 03/11/17 05:38 Dose: 100 mls/hr Potassium Chloride (K-Dur -) 40 meq PO DAILY [facility] Last Admin: 03/11/17 09:59 Dose: 40 meq Potassium Phos/Sodium Phos (Phos-Nak Packet -) 1 packet PO TID [facility] Last Admin: 03/11/17 05:46 Dose: 1 packet Prednisone (Deltasone -) 10 mg PO DAILY [facility] Last Admin: 03/11/17 09:59 Dose: 10 mg Risperidone (Risperdal -) 1 mg PO BID [facility] Last Admin: 03/11/17 09:59 Dose: 1 mg - Objective Vital Signs: Vital Signs Temperature 98.5 F 03/11/17 10:00 Pulse Rate 87 03/11/17 10:00 Respiratory Rate 20 03/11/17 10:00 Blood Pressure 111/68 03/11/17 10:00 O2 Sat by Pulse Oximetry (%) 98 03/10/17 20:46 Constitutional: Yes: No Distress HENT: Yes: WNL Neck: Yes: Supple Cardiovascular: Yes: Regular Rate and Rhythm Respiratory: Yes: Regular Gastrointestinal: Yes: Normal Bowel Sounds, Soft Genitourinary: Yes: [place] Present (clear, yellow urine) Extremities: Yes: Other (LE weakness) Integumentary: Yes: WNL Neurological: Yes: Alert Labs: CBC, BMP 03/06/17 05:28 03/06/17 05:28 INR, PTT INR 1.20 (0.82-1.09) H 03/01/17 08:30 Problem List - Problems (1) Altered mental state Code(s): R41.82 - ALTERED MENTAL STATUS, UNSPECIFIED (2) Aspiration pneumonia Code(s): J69.0 - PNEUMONITIS DUE TO INHALATION OF FOOD AND VOMIT Qualifiers: Aspiration pneumonia type: due to vomit Lung location: unspecified part of lung (3) Coma Code(s): R40.20 - UNSPECIFIED COMA Qualifiers: Coma depth: [place] coma 3-8 Coma timing: at arrival to emergency department Qualified Code(s): R40.2432 - [place] coma scale score 3-8, at arrival to emergency department; R40.2432 - [place] coma scale score 3-8, at arrival to emergency department; R40.2432 - [place] coma scale score 3-8, at arrival to emergency department (4) Lupus (systemic lupus erythematosus) Code(s): M32.9 - SYSTEMIC LUPUS ERYTHEMATOSUS, UNSPECIFIED (5) Overdose Code(s): T50.901A - POISONING BY UNSP DRUG/MEDS/BIOL SUBST, ACCIDENTAL, INIT Qualifiers: Encounter type: initial encounter Injury intent: undetermined intent Qualified Code(s): T50.904A - Poisoning by unspecified drugs, medicaments and biological substances, undetermined, initial encounter; T50.904A - Poisoning by unspecified drugs, medicaments and biological substances, undetermined, initial encounter (6) Respiratory failure Code(s): J96.90 - RESPIRATORY FAILURE, UNSP, UNSP W HYPOXIA OR HYPERCAPNIA Qualifiers: Chronicity: acute (7) Rhabdomyolysis Code(s): M62.82 - RHABDOMYOLYSIS (8) UTI (urinary tract infection) Code(s): N39.0 - URINARY TRACT INFECTION, SITE NOT SPECIFIED (9) Unresponsive Code(s): R41.89 - OTH SYMPTOMS AND SIGNS W COGNITIVE FUNCTIONS AND AWARENESS Assessment/Plan Pt s/p course of antibiotics monitor temps, slightly elevated at times, afebrile today Neurology f/u awaiting MRI continue monitor vitals
[2017-03-11] MEDS: COLLAGENASE CLOSTRIDIUM HIST. 30 GRAMS TUBE TP SCH (14:38)
[2017-03-11] MEDS: PANTOPRAZOLE 40 MG TABLET (FP) PO SCH (21:37)
[2017-03-11] MEDS: ACETAMINOPHEN 325 MG TABLET (FP) PO PRN (23:14)
[2017-03-12] MEDS: HEPARIN NA (PORCINE) 5,000 UNITS/ML 1ML VIAL SQ SCH ×3 (05:38→21:46)
[2017-03-12] MEDS: ACETAMINOPHEN 325 MG TABLET (FP) PO PRN (05:40)
[2017-03-12] MEDS: NAPH,MB-DB/K PH,MBDB POWDER PACKET PO SCH ×3 (05:41→21:46)
[2017-03-12 06:05] LABS: BASOPHIL 0.5 % (0-2.0); EOSINOPHIL 2.9 % (0-4.5); MCH 23.8 pg (25.7-33.7); MCHC 31.9 g/dl (32.0-36.0); MEAN CELL VOLUME 74.9 fl (80-96); MEAN PLT VOLUME 10.2 fl (7.5-11.1); PLATELET COUNT 267 K/MM3 (134-434); RDW 26.9 % (11.6-15.6); WHITE BLOOD COUNT 4.3 K/mm3 (4.0-10.0)
[2017-03-12 06:30] LABS: ALBUMIN 2.9 g/dl (3.4-5.0); ANION GAP 9 (8-16); CALCIUM 8.9 mg/dL (8.5-10.1); CO2 27 mmol/L (21-32); GLUCOSE,RANDOM 104 mg/dL (74-106); SGPT/ALT 51 U/L (12-78)
[2017-03-12 06:33] LABS: ALK PHOS 52 U/L (45-117); BILIRUBIN,TOTAL 0.4 mg/dL (0.2-1.0); CREATININE 0.6 mg/dL (0.55-1.02); SGOT/AST 27 U/L (15-37); TOT PROT 5.5 g/dl (6.4-8.2)
[2017-03-12 08:25] LABS: ANISOCYTOSIS 2+; HYPOCHROMIA 1+; MICROCYTOSIS 2+; OVALOCYTE 2+; TEAR DROP CELLS 4+
[2017-03-12] MEDS ORDERED: PT OWN MED DRAWER 7, Y5N ONE ×3 (09:26→21:00)
[2017-03-12] MEDS: predniSONE 10 MG TABLET (UD) PO SCH (09:28)
[2017-03-12] MEDS: PANTOPRAZOLE 40 MG TABLET (FP) PO SCH ×2 (09:28→21:46)
[2017-03-12] MEDS: POTASSIUM CHLORIDE TABS 20 MEQ TABLET.ER (FP) PO SCH (09:28)
[2017-03-12] MEDS: risperiDONE 1 MG TABLET (FP) PO SCH ×2 (09:28→21:46)
[2017-03-12] MEDS: BACITRACIN 15 GM TUBE TOPICAL OINTMENT TP SCH ×2 (09:29→21:46)
--- NOTE | 2017-03-12 09:39 | PN ---
Progress Note (short form) - Note Progress Note: Neurology History of Present Illness 46 year old female presented to ER completely unresponsive, [place] coma scale of 3, who was "found down" possibly for several days and last known well two days prior to admission. Found in her own urine and feces without explanation of why. Concern for airway protection and ER intubated and put on mechanical ventilation in the ER. CT head completed and did not show acute changes. UTox positive for benzo, barbiturates, and opiods. Also with WBC of 18. Concern for drug overdose, was in ICU in close monitoring, eventually extubated and downgraded to telemetry. Has been more awake, alert, responsive, tracking examiner, conversive. Able to tell me she is in the hospital, the date, name of President. MRI brain and C spine ordered, has not completed because patient does not have ability to tell us if any metal in body and staff trying to reach healthcare proxy to determine. Question of stents in patient. CT head repeated and did not show acute changes. EMG report reviewed and showed critical illness myopathy which appears to have improved. She is moving extremities over head without difficulty now, will cancel consult for muscle biopsy. May need placement. Active Medications Acetaminophen (Tylenol -) 650 mg PO Q6H PRN PRN Reason: FEVER OR PAIN Last Admin: 03/12/17 05:40 Dose: 650 mg Bacitracin (Bacitracin -) 1 applic TP BID [facility] Last Admin: 03/12/17 09:29 Dose: 1 applic Collagenase (Santyl -) 1 applic TP DAILY [facility] Last Admin: 03/11/17 14:38 Dose: 1 applic Heparin Sodium (Porcine) (Heparin -) 5,000 unit SQ TID [facility] Last Admin: 03/12/17 05:38 Dose: 5,000 unit Pantoprazole Sodium (Protonix -) 40 mg PO BID [facility] Last Admin: 03/12/17 09:28 Dose: 40 mg Potassium Chloride (K-Dur -) 40 meq PO DAILY [facility] Last Admin: 03/12/17 09:28 Dose: 40 meq Potassium Phos/Sodium Phos (Phos-Nak Packet -) 1 packet PO TID [facility] Last Admin: 03/12/17 05:41 Dose: 1 packet Prednisone (Deltasone -) 10 mg PO DAILY [facility] Last Admin: 03/12/17 09:28 Dose: 10 mg Risperidone (Risperdal -) 1 mg PO BID [facility] Last Admin: 03/12/17 09:28 Dose: 1 mg *Physical Exam Vital Signs Period Temp Pulse Resp BP Sys/Pena Pulse Ox Last 24 Hr 97.8 F-99.2 F 86-100 18-20 99-122/63-77 96 Awake, tracking examiner, verbal and cooperative, conversive, maintains attention Squeezing hand to command, raising arms or legs to command, moving b/l UE with full range of motion No hemiparesis Intact to tactile stimulation Finger to nose intact Lungs sounds mechanical RRR Abdomen soft Gait deferred CBCD WBC 4.3 K/mm3 (4.0-10.0) 03/12/17 05:35 RBC 3.78 M/mm3 (3.60-5.2) 03/12/17 05:35 Hgb 9.0 GM/dL (10.7-15.3) L 03/12/17 05:35 Hct 28.3 % (32.4-45.2) L 03/12/17 05:35 MCV 74.9 fl (80-96) L 03/12/17 05:35 MCHC 31.9 g/dl (32.0-36.0) L 03/12/17 05:35 RDW 26.9 % (11.6-15.6) H 03/12/17 05:35 Plt Count 267 K/MM3 (134-434) D 03/12/17 05:35 MPV 10.2 fl (7.5-11.1) D 03/12/17 05:35 CMP Sodium 142 mmol/L (136-145) 03/12/17 05:35 Potassium 4.7 mmol/L (3.5-5.1) D 03/12/17 05:35 Chloride 106 mmol/L (98-107) 03/12/17 05:35 Carbon Dioxide 27 mmol/L (21-32) 03/12/17 05:35 Anion Gap 9 (8-16) 03/12/17 05:35 BUN 11 mg/dL (7-18) D 03/12/17 05:35 Creatinine 0.6 mg/dL (0.55-1.02) 03/12/17 05:35 Creat Clearance w eGFR > 60 (>60) 03/12/17 05:35 Calcium 8.9 mg/dL (8.5-10.1) 03/12/17 05:35 Total Bilirubin 0.4 mg/dL (0.2-1.0) 03/12/17 05:35 AST 27 U/L (15-37) D 03/12/17 05:35 ALT 51 U/L (12-78) D 03/12/17 05:35 Alkaline Phosphatase 52 U/L (45-117) 03/12/17 05:35 Total Protein 5.5 g/dl (6.4-8.2) L 03/12/17 05:35 Albumin 2.9 g/dl (3.4-5.0) L 03/12/17 05:35 CT head repeat reviewed Plan: 46 year old female presented to ER completely unresponsive, [place] coma scale of 3, who was "found down" possibly for several days and last known well two days ago. Found in her own urine and feces without explanation of why. Concern for airway protection and ER intubated and put on mechanical ventilation, under close observation in the ICU. CT head completed and did not show acute changes. Repeat CT head without acute changes, did not have signs of anoxic brain injury UTox positive for benzo, barbiturates, and opiods. Concern for drug overdose Hydration as needed Weaned from mechanical vent, comfortable on room air No evidence of seizures Mental status improved, possibly at baseline Critical illness myopathy on EMG, strenght improved Started on Risperdal 1mg bid Rehab placement
--- NOTE | 2017-03-12 11:25 | PN ---
Progress Note, Physician History of Present Illness: Mental status improved, more interactive, strength improving. - Current Medication List Current Medications: Active Medications Acetaminophen (Tylenol -) 650 mg PO Q6H PRN PRN Reason: FEVER OR PAIN Last Admin: 03/12/17 05:40 Dose: 650 mg Bacitracin (Bacitracin -) 1 applic TP BID [facility] Last Admin: 03/12/17 09:29 Dose: 1 applic Collagenase (Santyl -) 1 applic TP DAILY [facility] Last Admin: 03/11/17 14:38 Dose: 1 applic Heparin Sodium (Porcine) (Heparin -) 5,000 unit SQ TID [facility] Last Admin: 03/12/17 05:38 Dose: 5,000 unit Pantoprazole Sodium (Protonix -) 40 mg PO BID [facility] Last Admin: 03/12/17 09:28 Dose: 40 mg Potassium Chloride (K-Dur -) 40 meq PO DAILY [facility] Last Admin: 03/12/17 09:28 Dose: 40 meq Potassium Phos/Sodium Phos (Phos-Nak Packet -) 1 packet PO TID [facility] Last Admin: 03/12/17 05:41 Dose: 1 packet Prednisone (Deltasone -) 10 mg PO DAILY [facility] Last Admin: 03/12/17 09:28 Dose: 10 mg Risperidone (Risperdal -) 1 mg PO BID [facility] Last Admin: 03/12/17 09:28 Dose: 1 mg - Objective Vital Signs: Vital Signs Temperature 97.8 F 03/12/17 06:00 Pulse Rate 93 H 03/12/17 09:00 Respiratory Rate 20 03/12/17 09:00 Blood Pressure 114/65 03/12/17 09:00 O2 Sat by Pulse Oximetry (%) 96 03/12/17 09:00 Constitutional: Yes: No Distress, Calm Neck: Yes: Supple Cardiovascular: Yes: Regular Rate and Rhythm Respiratory: Yes: Regular, Diminished Gastrointestinal: Yes: Normal Bowel Sounds, Soft Edema: No Labs: CBC, BMP 03/12/17 05:35 03/12/17 05:35 INR, PTT INR 1.20 (0.82-1.09) H 03/01/17 08:30 Problem List - Problems (1) Overdose Code(s): T50.901A - POISONING BY UNSP DRUG/MEDS/BIOL SUBST, ACCIDENTAL, INIT Qualifiers: Encounter type: initial encounter Injury intent: undetermined intent Qualified Code(s): T50.904A - Poisoning by unspecified drugs, medicaments and biological substances, undetermined, initial encounter; T50.904A - Poisoning by unspecified drugs, medicaments and biological substances, undetermined, initial encounter (2) Respiratory failure Code(s): J96.90 - RESPIRATORY FAILURE, UNSP, UNSP W HYPOXIA OR HYPERCAPNIA Qualifiers: Chronicity: acute (3) Aspiration pneumonia Code(s): J69.0 - PNEUMONITIS DUE TO INHALATION OF FOOD AND VOMIT Qualifiers: Aspiration pneumonia type: due to vomit Lung location: unspecified part of lung (4) Lupus (systemic lupus erythematosus) Code(s): M32.9 - SYSTEMIC LUPUS ERYTHEMATOSUS, UNSPECIFIED (5) Anemia Code(s): D64.9 - ANEMIA, UNSPECIFIED Qualifiers: Anemia type: unspecified type Qualified Code(s): D64.9 - Anemia, unspecified; D64.9 - Anemia, unspecified Assessment/Plan 1. Post acute respiratory failure, persistent toxic metabolic encephalopathy, possible drug overdose 2. Sepsis syndrome, resolved 3. History of Lupus 5. Acute on chronic renal insufficiency, pre-renal azotemia, resolved 6. Anemia 7. Hypokalemia 8. 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 DVT prophylaxis, steroids with GI prophylaxis, PT->rehab 2. Neurological evaluation as planned for the above noted persistent encephalopathy including brain MRI and EEG once able to consent
--- NOTE | 2017-03-12 13:17 | PN ---
Progress Note, Physician History of Present Illness: doing well no issues - Current Medication List Current Medications: Active Medications Acetaminophen (Tylenol -) 650 mg PO Q6H PRN PRN Reason: FEVER OR PAIN Last Admin: 03/12/17 05:40 Dose: 650 mg Bacitracin (Bacitracin -) 1 applic TP BID [facility] Last Admin: 03/12/17 09:29 Dose: 1 applic Collagenase (Santyl -) 1 applic TP DAILY [facility] Last Admin: 03/11/17 14:38 Dose: 1 applic Heparin Sodium (Porcine) (Heparin -) 5,000 unit SQ TID [facility] Last Admin: 03/12/17 05:38 Dose: 5,000 unit Pantoprazole Sodium (Protonix -) 40 mg PO BID [facility] Last Admin: 03/12/17 09:28 Dose: 40 mg Potassium Chloride (K-Dur -) 40 meq PO DAILY [facility] Last Admin: 03/12/17 09:28 Dose: 40 meq Potassium Phos/Sodium Phos (Phos-Nak Packet -) 1 packet PO TID [facility] Last Admin: 03/12/17 05:41 Dose: 1 packet Prednisone (Deltasone -) 10 mg PO DAILY [facility] Last Admin: 03/12/17 09:28 Dose: 10 mg Risperidone (Risperdal -) 1 mg PO BID [facility] Last Admin: 03/12/17 09:28 Dose: 1 mg - Objective Vital Signs: Vital Signs Temperature 97.8 F 03/12/17 06:00 Pulse Rate 93 H 03/12/17 09:00 Respiratory Rate 20 03/12/17 09:00 Blood Pressure 114/65 03/12/17 09:00 O2 Sat by Pulse Oximetry (%) 96 03/12/17 09:00 Constitutional: Yes: No Distress, Calm Cardiovascular: Yes: Regular Rate and Rhythm Respiratory: Yes: Regular, CTA Bilaterally Gastrointestinal: Yes: Normal Bowel Sounds, Soft Genitourinary: Yes: Other (foleys in place) Musculoskeletal: Yes: WNL Extremities: Yes: WNL Neurological: Yes: Alert Psychiatric: Yes: Alert Labs: CBC, BMP 03/12/17 05:35 03/12/17 05:35 INR, PTT INR 1.20 (0.82-1.09) H 03/01/17 08:30 - ....Imaging Cat Scan: Report Reviewed, Image Reviewed Assessment/Plan Problem List - Problems (1) Overdose Code(s): T50.901A - POISONING BY UNSP DRUG/MEDS/BIOL SUBST, ACCIDENTAL, INIT Qualifiers: Encounter type: initial encounter Injury intent: undetermined intent Qualified Code(s): T50.904A - Poisoning by unspecified drugs, medicaments and biological substances, undetermined, initial encounter (2) Polypharmacy Code(s): Z79.899 - OTHER [employer] (CURRENT) DRUG THERAPY (3) Unresponsive Code(s): R41.89 - OTH SYMPTOMS AND SIGNS W COGNITIVE FUNCTIONS AND AWARENESS (4) TRENT (acute kidney injury) Code(s): N17.9 - ACUTE KIDNEY FAILURE, UNSPECIFIED (5) Rhabdomyolysis Code(s): M62.82 - RHABDOMYOLYSIS (6) Respiratory failure Code(s): J96.90 - RESPIRATORY FAILURE, UNSP, UNSP W HYPOXIA OR HYPERCAPNIA asp pna leukocytosis uti plan continues to improve continue monitoring rest as per primary team
[2017-03-12] MEDS: COLLAGENASE CLOSTRIDIUM HIST. 30 GRAMS TUBE TP SCH (17:53)
--- NOTE | 2017-03-12 19:32 | PN ---
Progress Note, Physician History of Present Illness: very alert wants to go to rehab - Current Medication List Current Medications: Active Medications Acetaminophen (Tylenol -) 650 mg PO Q6H PRN PRN Reason: FEVER OR PAIN Last Admin: 03/12/17 05:40 Dose: 650 mg Bacitracin (Bacitracin -) 1 applic TP BID [facility] Last Admin: 03/12/17 09:29 Dose: 1 applic Collagenase (Santyl -) 1 applic TP DAILY [facility] Last Admin: 03/12/17 17:53 Dose: 1 applic Heparin Sodium (Porcine) (Heparin -) 5,000 unit SQ TID [facility] Last Admin: 03/12/17 14:23 Dose: 5,000 unit Pantoprazole Sodium (Protonix -) 40 mg PO BID [facility] Last Admin: 03/12/17 09:28 Dose: 40 mg Potassium Chloride (K-Dur -) 40 meq PO DAILY [facility] Last Admin: 03/12/17 09:28 Dose: 40 meq Potassium Phos/Sodium Phos (Phos-Nak Packet -) 1 packet PO TID [facility] Last Admin: 03/12/17 14:24 Dose: 1 packet Prednisone (Deltasone -) 10 mg PO DAILY [facility] Last Admin: 03/12/17 09:28 Dose: 10 mg Risperidone (Risperdal -) 1 mg PO BID [facility] Last Admin: 03/12/17 09:28 Dose: 1 mg - Objective Vital Signs: Vital Signs Temperature 98.4 F 03/12/17 18:00 Pulse Rate 92 H 03/12/17 18:00 Respiratory Rate 16 03/12/17 18:00 Blood Pressure 111/67 03/12/17 18:00 O2 Sat by Pulse Oximetry (%) 96 03/12/17 09:00 Constitutional: Yes: No Distress HENT: Yes: Atraumatic Neck: Yes: Supple Cardiovascular: Yes: Regular Rate and Rhythm Respiratory: Yes: CTA Bilaterally Gastrointestinal: Yes: Normal Bowel Sounds Extremities: Yes: WNL Edema: No ...Motor Strength: LLE, RLE (only able to lift legs from bed) Labs: CBC, BMP 03/12/17 05:35 03/12/17 05:35 INR, PTT INR 1.20 (0.82-1.09) H 03/01/17 08:30 Problem List - Problems (1) TRENT (acute kidney injury) Assessment/Plan: CR WNL Code(s): N17.9 - ACUTE KIDNEY FAILURE, UNSPECIFIED (2) Anoxic brain injury Assessment/Plan: on [place] alert Code(s): G93.1 - ANOXIC BRAIN DAMAGE, NOT ELSEWHERE CLASSIFIED (3) Coma Assessment/Plan: awake and alert Code(s): R40.20 - UNSPECIFIED COMA Qualifiers: Coma depth: [place] coma 3-8 Coma timing: at arrival to emergency department Qualified Code(s): R40.2432 - [place] coma scale score 3-8, at arrival to emergency department; R40.2432 - [place] coma scale score 3-8, at arrival to emergency department; R40.2432 - [place] coma scale score 3-8, at arrival to emergency department (4) Overdose Assessment/Plan: reportedly pt is on pain meds per solar panel installer Code(s): T50.901A - POISONING BY UNSP DRUG/MEDS/BIOL SUBST, ACCIDENTAL, INIT Qualifiers: Encounter type: initial encounter Injury intent: undetermined intent Qualified Code(s): T50.904A - Poisoning by unspecified drugs, medicaments and biological substances, undetermined, initial encounter; T50.904A - Poisoning by unspecified drugs, medicaments and biological substances, undetermined, initial encounter (5) Polypharmacy Code(s): Z79.899 - OTHER RETIRE[employer] (CURRENT) DRUG THERAPY (6) Respiratory failure Assessment/Plan: on [place] Code(s): J96.90 - RESPIRATORY FAILURE, UNSP, UNSP W HYPOXIA OR HYPERCAPNIA Qualifiers: Chronicity: acute (7) Rhabdomyolysis Assessment/Plan: ivf resolved Code(s): M62.82 - RHABDOMYOLYSIS (8) Unresponsive Code(s): R41.89 - OTH SYMPTOMS AND SIGNS W COGNITIVE FUNCTIONS AND AWARENESS (9) UTI (urinary tract infection) Code(s): N39.0 - URINARY TRACT INFECTION, SITE NOT SPECIFIED (10) Lupus (systemic lupus erythematosus) Code(s): M32.9 - SYSTEMIC LUPUS ERYTHEMATOSUS, UNSPECIFIED (11) Myopathy Code(s): G72.9 - MYOPATHY, UNSPECIFIED Assessment/Plan patient needs and wants to go to rehab
[2017-03-12] MEDS ORDERED: ZOLPIDEM TARTRATE 5 MG TABLET PO STA (22:50)
[2017-03-13] MEDS: HEPARIN NA (PORCINE) 5,000 UNITS/ML 1ML VIAL SQ SCH ×2 (06:16→13:47)
[2017-03-13] MEDS: NAPH,MB-DB/K PH,MBDB POWDER PACKET PO SCH ×3 (06:16→21:23)
[2017-03-13 07:23] LABS: BASOPHIL 0.5 % (0-2.0); EOSINOPHIL 2.2 % (0-4.5); MCH 23.9 pg (25.7-33.7); MCHC 31.7 g/dl (32.0-36.0); MEAN CELL VOLUME 75.3 fl (80-96); MEAN PLT VOLUME 9.7 fl (7.5-11.1); NEUTROPHILS 58.7 % (42.8-82.8); PLATELET COUNT 247 K/MM3 (134-434); RDW 26.1 % (11.6-15.6); WHITE BLOOD COUNT 4.9 K/mm3 (4.0-10.0)
--- NOTE | 2017-03-13 10:07 | PN ---
Progress Note (short form) - Note Progress Note: Neurology History of Present Illness 46 year old female presented to ER completely unresponsive, Rossy coma scale of 3, who was "found down" possibly for several days and last known well two days prior to admission. Found in her own urine and feces without explanation of why. Concern for airway protection and ER intubated and put on mechanical ventilation in the ER. CT head completed and did not show acute changes. UTox positive for benzo, barbiturates, and opiods. Also with WBC of 18. Concern for drug overdose, was in ICU in close monitoring, eventually extubated and downgraded to telemetry. Has been more awake, alert, responsive, tracking examiner, conversive. Able to tell me she is in the hospital, the date, name of President. CT head repeated and did not show acute changes. EMG report reviewed and showed critical illness myopathy which appears to have improved. She is moving extremities over head without difficulty now, canceled consult for muscle biopsy. Paperwork sent out for placement. Spoke to delinquency prevention social worker regarding SNF. Active Medications Acetaminophen (Tylenol -) 650 mg PO Q6H PRN PRN Reason: FEVER OR PAIN Last Admin: 03/12/17 05:40 Dose: 650 mg Bacitracin (Bacitracin -) 1 applic TP BID [facility] Last Admin: 03/12/17 21:46 Dose: 1 applic Collagenase (Santyl -) 1 applic TP DAILY [facility] Last Admin: 03/12/17 17:53 Dose: 1 applic Heparin Sodium (Porcine) (Heparin -) 5,000 unit SQ TID [facility] Last Admin: 03/13/17 06:16 Dose: 5,000 unit Pantoprazole Sodium (Protonix -) 40 mg PO BID [facility] Last Admin: 03/12/17 21:46 Dose: 40 mg Potassium Chloride (K-Dur -) 40 meq PO DAILY [facility] Last Admin: 03/12/17 09:28 Dose: 40 meq Potassium Phos/Sodium Phos (Phos-Nak Packet -) 1 packet PO TID [facility] Last Admin: 03/13/17 06:16 Dose: 1 packet Prednisone (Deltasone -) 10 mg PO DAILY [facility] Last Admin: 03/12/17 09:28 Dose: 10 mg Risperidone (Risperdal -) 1 mg PO BID [facility] Last Admin: 03/12/17 21:46 Dose: 1 mg *Physical Exam Vital Signs Temperature 98.9 F 03/13/17 08:23 Pulse Rate 92 H 03/13/17 08:23 Respiratory Rate 18 03/13/17 08:23 Blood Pressure 105/61 03/13/17 08:23 O2 Sat by Pulse Oximetry (%) 99 03/12/17 21:00 Awake, tracking examiner, verbal and cooperative, conversive, maintains attention Squeezing hand to command, raising arms or legs to command, moving b/l UE with full range of motion No hemiparesis Intact to tactile stimulation Finger to nose intact Lungs sounds mechanical RRR Abdomen soft Gait deferred CBCD WBC 4.9 K/mm3 (4.0-10.0) 03/13/17 06:00 RBC 3.90 M/mm3 (3.60-5.2) 03/13/17 06:00 Hgb 9.3 GM/dL (10.7-15.3) L 03/13/17 06:00 Hct 29.4 % (32.4-45.2) L 03/13/17 06:00 MCV 75.3 fl (80-96) L 03/13/17 06:00 MCHC 31.7 g/dl (32.0-36.0) L 03/13/17 06:00 RDW 26.1 % (11.6-15.6) H 03/13/17 06:00 Plt Count 247 K/MM3 (134-434) 03/13/17 06:00 MPV 9.7 fl (7.5-11.1) 03/13/17 06:00 CMP Sodium 142 mmol/L (136-145) 03/12/17 05:35 Potassium 4.7 mmol/L (3.5-5.1) D 03/12/17 05:35 Chloride 106 mmol/L (98-107) 03/12/17 05:35 Carbon Dioxide 27 mmol/L (21-32) 03/12/17 05:35 Anion Gap 9 (8-16) 03/12/17 05:35 BUN 11 mg/dL (7-18) D 03/12/17 05:35 Creatinine 0.6 mg/dL (0.55-1.02) 03/12/17 05:35 Creat Clearance w eGFR > 60 (>60) 03/12/17 05:35 Calcium 8.9 mg/dL (8.5-10.1) 03/12/17 05:35 Total Bilirubin 0.4 mg/dL (0.2-1.0) 03/12/17 05:35 AST 27 U/L (15-37) D 03/12/17 05:35 ALT 51 U/L (12-78) D 03/12/17 05:35 Alkaline Phosphatase 52 U/L (45-117) 03/12/17 05:35 Total Protein 5.5 g/dl (6.4-8.2) L 03/12/17 05:35 Albumin 2.9 g/dl (3.4-5.0) L 03/12/17 05:35 CT head repeat reviewed Plan: 46 year old female presented to ER completely unresponsive, Rossy coma scale of 3, who was "found down" possibly for several days and last known well two days ago. Found in her own urine and feces without explanation of why. Concern for airway protection and ER intubated and put on mechanical ventilation, under close observation in the ICU. CT head completed and did not show acute changes. Repeat CT head without acute changes, did not have signs of anoxic brain injury UTox positive for benzo, barbiturates, and opiods. Concern for drug overdose Hydration as needed Weaned from mechanical vent, comfortable on room air No evidence of seizures Mental status improved, possibly at baseline Critical illness myopathy on EMG, strenght improved Started on Risperdal 1mg bid population health manager working on placement
[2017-03-13] MEDS ORDERED: PT OWN MED DRAWER 7, Y5N ONE (10:34)
[2017-03-13] MEDS: predniSONE 10 MG TABLET (UD) PO SCH (10:36)
[2017-03-13] MEDS: POTASSIUM CHLORIDE TABS 20 MEQ TABLET.ER (FP) PO SCH (10:38)
[2017-03-13] MEDS: ACETAMINOPHEN 325 MG TABLET (FP) PO PRN ×3 (10:38→20:20)
[2017-03-13] MEDS: risperiDONE 1 MG TABLET (FP) PO SCH ×2 (10:38→21:24)
[2017-03-13] MEDS: COLLAGENASE CLOSTRIDIUM HIST. 30 GRAMS TUBE TP SCH (10:39)
[2017-03-13] MEDS: BACITRACIN 15 GM TUBE TOPICAL OINTMENT TP SCH ×2 (10:39→21:23)
[2017-03-13] MEDS: PANTOPRAZOLE 40 MG TABLET (FP) PO SCH ×2 (10:39→21:24)
--- NOTE | 2017-03-13 11:47 | PN ---
Progress Note, Physician Chief Complaint: Events noted Not in distress History of Present Illness: Patient was seen and examined. Awake and alert. Chart was reviewed Denies chest pain, SOB or palpitations Complained of left discomfort earlier and headache - Current Medication List Current Medications: Active Medications Acetaminophen (Tylenol -) 650 mg PO Q6H PRN PRN Reason: FEVER OR PAIN Last Admin: 03/13/17 10:38 Dose: 650 mg Bacitracin (Bacitracin -) 1 applic TP BID [facility] Last Admin: 03/13/17 10:39 Dose: 1 applic Collagenase (Santyl -) 1 applic TP DAILY [facility] Last Admin: 03/13/17 10:39 Dose: 1 applic Heparin Sodium (Porcine) (Heparin -) 5,000 unit SQ TID [facility] Last Admin: 03/13/17 06:16 Dose: 5,000 unit Pantoprazole Sodium (Protonix -) 40 mg PO BID [facility] Last Admin: 03/13/17 10:39 Dose: 40 mg Potassium Chloride (K-Dur -) 40 meq PO DAILY [facility] Last Admin: 03/13/17 10:38 Dose: 40 meq Potassium Phos/Sodium Phos (Phos-Nak Packet -) 1 packet PO TID [facility] Last Admin: 03/13/17 06:16 Dose: 1 packet Prednisone (Deltasone -) 10 mg PO DAILY [facility] Last Admin: 03/13/17 10:36 Dose: 10 mg Risperidone (Risperdal -) 1 mg PO BID [facility] Last Admin: 03/13/17 10:38 Dose: 1 mg - Objective Vital Signs: Vital Signs Temperature 98.9 F 03/13/17 08:23 Pulse Rate 92 H 03/13/17 08:23 Respiratory Rate 18 03/13/17 08:23 Blood Pressure 105/61 03/13/17 08:23 O2 Sat by Pulse Oximetry (%) 99 03/12/17 21:00 Neck: Yes: Supple Cardiovascular: Yes: Regular Rate and Rhythm, S1, S2 Respiratory: Yes: CTA Bilaterally Gastrointestinal: Yes: Normal Bowel Sounds, Soft. No: Tenderness Edema: No Labs: CBC, BMP 03/13/17 06:00 03/12/17 05:35 Problem List - Problems (1) Lupus (systemic lupus erythematosus) Code(s): M32.9 - SYSTEMIC LUPUS ERYTHEMATOSUS, UNSPECIFIED (2) Rhabdomyolysis Code(s): M62.82 - RHABDOMYOLYSIS (3) Anemia Code(s): D64.9 - ANEMIA, UNSPECIFIED Qualifiers: Anemia type: unspecified type Qualified Code(s): D64.9 - Anemia, unspecified; D64.9 - Anemia, unspecified (4) Overdose Code(s): T50.901A - POISONING BY UNSP DRUG/MEDS/BIOL SUBST, ACCIDENTAL, INIT Qualifiers: Encounter type: initial encounter Injury intent: undetermined intent Qualified Code(s): T50.904A - Poisoning by unspecified drugs, medicaments and biological substances, undetermined, initial encounter; T50.904A - Poisoning by unspecified drugs, medicaments and biological substances, undetermined, initial encounter (5) Sepsis Code(s): A41.9 - SEPSIS, UNSPECIFIED ORGANISM (6) Myopathy Code(s): G72.9 - MYOPATHY, UNSPECIFIED Assessment/Plan 1. Post acute respiratory failure, persistent toxic metabolic encephalopathy, possible drug overdose 2. Sepsis syndrome, resolved 3. History of Lupus 5. Acute on chronic renal insufficiency, pre-renal azotemia, resolved 6. Anemia 7. Hypokalemia 8. Critical Illness Myopathy on EMG PLAN: 1. DVT prophylaxis, steroids with GI prophylaxis 2. PT and rehab 3. Neurological evaluation as planned Further plans are to follow. Ludwig Pedersen MD
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
--- NOTE | 2017-03-13 13:05 | PN ---
Progress Note, Physician History of Present Illness: very alert - Current Medication List Current Medications: Active Medications Acetaminophen (Tylenol -) 650 mg PO Q6H PRN PRN Reason: FEVER OR PAIN Last Admin: 03/13/17 10:38 Dose: 650 mg Bacitracin (Bacitracin -) 1 applic TP BID [facility] Last Admin: 03/13/17 10:39 Dose: 1 applic Collagenase (Santyl -) 1 applic TP DAILY [facility] Last Admin: 03/13/17 10:39 Dose: 1 applic Heparin Sodium (Porcine) (Heparin -) 5,000 unit SQ TID [facility] Last Admin: 03/13/17 06:16 Dose: 5,000 unit Pantoprazole Sodium (Protonix -) 40 mg PO BID [facility] Last Admin: 03/13/17 10:39 Dose: 40 mg Potassium Chloride (K-Dur -) 40 meq PO DAILY [facility] Last Admin: 03/13/17 10:38 Dose: 40 meq Potassium Phos/Sodium Phos (Phos-Nak Packet -) 1 packet PO TID [facility] Last Admin: 03/13/17 06:16 Dose: 1 packet Prednisone (Deltasone -) 10 mg PO DAILY [facility] Last Admin: 03/13/17 10:36 Dose: 10 mg Risperidone (Risperdal -) 1 mg PO BID [facility] Last Admin: 03/13/17 10:38 Dose: 1 mg - Objective Vital Signs: Vital Signs Temperature 98.9 F 03/13/17 08:23 Pulse Rate 92 H 03/13/17 08:23 Respiratory Rate 18 03/13/17 08:23 Blood Pressure 105/61 03/13/17 08:23 O2 Sat by Pulse Oximetry (%) 99 03/12/17 21:00 Constitutional: Yes: No Distress HENT: Yes: Atraumatic Neck: Yes: Supple Cardiovascular: Yes: Regular Rate and Rhythm Respiratory: Yes: CTA Bilaterally Gastrointestinal: Yes: Normal Bowel Sounds Extremities: Yes: WNL Neurological: Yes: Alert, Oriented ...Motor Strength: LLE, RLE (much stronger) Labs: CBC, BMP 03/13/17 06:00 03/12/17 05:35 INR, PTT INR 1.20 (0.82-1.09) H 03/01/17 08:30 Problem List - Problems (1) TRENT (acute kidney injury) Assessment/Plan: CR WNL Code(s): N17.9 - ACUTE KIDNEY FAILURE, UNSPECIFIED (2) Anoxic brain injury Assessment/Plan: on NC alert Code(s): G93.1 - ANOXIC BRAIN DAMAGE, NOT ELSEWHERE CLASSIFIED (3) Coma Assessment/Plan: awake and alert Code(s): R40.20 - UNSPECIFIED COMA Qualifiers: Coma depth: Rossy coma 3-8 Coma timing: at arrival to emergency department Qualified Code(s): R40.2432 - Rossy coma scale score 3-8, at arrival to emergency department; R40.2432 - [place] coma scale score 3-8, at arrival to emergency department; R40.2432 - Rossy coma scale score 3-8, at arrival to emergency department (4) Overdose Assessment/Plan: reportedly pt is on pain meds per latex foam worker Code(s): T50.901A - POISONING BY UNSP DRUG/MEDS/BIOL SUBST, ACCIDENTAL, INIT Qualifiers: Encounter type: initial encounter Injury intent: undetermined intent Qualified Code(s): T50.904A - Poisoning by unspecified drugs, medicaments and biological substances, undetermined, initial encounter; T50.904A - Poisoning by unspecified drugs, medicaments and biological substances, undetermined, initial encounter (5) Polypharmacy Code(s): Z79.899 - OTHER COMMERCIAL LOAN ANALYST (CURRENT) DRUG THERAPY (6) Respiratory failure Assessment/Plan: on [place] Code(s): J96.90 - RESPIRATORY FAILURE, UNSP, UNSP W HYPOXIA OR HYPERCAPNIA Qualifiers: Chronicity: acute (7) Rhabdomyolysis Assessment/Plan: ivf resolving Code(s): M62.82 - RHABDOMYOLYSIS (8) Unresponsive Code(s): R41.89 - OTH SYMPTOMS AND SIGNS W COGNITIVE FUNCTIONS AND AWARENESS (9) UTI (urinary tract infection) Code(s): N39.0 - URINARY TRACT INFECTION, SITE NOT SPECIFIED (10) Lupus (systemic lupus erythematosus) Code(s): M32.9 - SYSTEMIC LUPUS ERYTHEMATOSUS, UNSPECIFIED (11) Myopathy Assessment/Plan: pt able to walk few steps with walker Code(s): G72.9 - MYOPATHY, UNSPECIFIED (12) Skin ulcer Assessment/Plan: on the sides where pt was laying ..left hep and left side of chest and left malleolous its healing..eshar formation dressing in place Code(s): L98.499 - NON-PRESSURE CHRONIC ULCER OF SKIN OF SITES W UNSP SEVERITY Assessment/Plan rosalina aguiar
--- NOTE | 2017-03-13 14:03 | PN ---
Progress Note, Physician History of Present Illness: stable no new issues - Current Medication List Current Medications: Active Medications Acetaminophen (Tylenol -) 650 mg PO Q6H PRN PRN Reason: FEVER OR PAIN Last Admin: 03/13/17 10:38 Dose: 650 mg Bacitracin (Bacitracin -) 1 applic TP BID [facility] Last Admin: 03/13/17 10:39 Dose: 1 applic Collagenase (Santyl -) 1 applic TP DAILY [facility] Last Admin: 03/13/17 10:39 Dose: 1 applic Pantoprazole Sodium (Protonix -) 40 mg PO BID [facility] Last Admin: 03/13/17 10:39 Dose: 40 mg Potassium Chloride (K-Dur -) 40 meq PO DAILY [facility] Last Admin: 03/13/17 10:38 Dose: 40 meq Potassium Phos/Sodium Phos (Phos-Nak Packet -) 1 packet PO TID [facility] Last Admin: 03/13/17 13:47 Dose: 1 packet Prednisone (Deltasone -) 10 mg PO DAILY [facility] Last Admin: 03/13/17 10:36 Dose: 10 mg Risperidone (Risperdal -) 1 mg PO BID [facility] Last Admin: 03/13/17 10:38 Dose: 1 mg - Objective Vital Signs: Vital Signs Temperature 98.9 F 03/13/17 08:23 Pulse Rate 92 H 03/13/17 08:23 Respiratory Rate 18 03/13/17 08:23 Blood Pressure 105/61 03/13/17 08:23 O2 Sat by Pulse Oximetry (%) 99 03/12/17 21:00 Constitutional: Yes: No Distress, Calm Cardiovascular: Yes: Regular Rate and Rhythm Respiratory: Yes: Regular, CTA Bilaterally Gastrointestinal: Yes: Normal Bowel Sounds, Soft Genitourinary: Yes: [place] Present Musculoskeletal: Yes: WNL Extremities: Yes: WNL Neurological: Yes: Alert, Oriented Psychiatric: Yes: Alert Labs: CBC, BMP 03/13/17 06:00 03/12/17 05:35 INR, PTT INR 1.20 (0.82-1.09) H 03/01/17 08:30 Assessment/Plan Problem List - Problems (1) Overdose Code(s): T50.901A - POISONING BY UNSP DRUG/MEDS/BIOL SUBST, ACCIDENTAL, INIT Qualifiers: Encounter type: initial encounter Injury intent: undetermined intent Qualified Code(s): T50.904A - Poisoning by unspecified drugs, medicaments and biological substances, undetermined, initial encounter (2) Polypharmacy Code(s): Z79.899 - OTHER TRAINING ENGINEER (CURRENT) DRUG THERAPY (3) Unresponsive Code(s): R41.89 - OTH SYMPTOMS AND SIGNS W COGNITIVE FUNCTIONS AND AWARENESS (4) TRENT (acute kidney injury) Code(s): N17.9 - ACUTE KIDNEY FAILURE, UNSPECIFIED (5) Rhabdomyolysis Code(s): M62.82 - RHABDOMYOLYSIS (6) Respiratory failure Code(s): J96.90 - RESPIRATORY FAILURE, UNSP, UNSP W HYPOXIA OR HYPERCAPNIA asp pna leukocytosis uti plan continues to improve continue monitoring rest as per primary team
[2017-03-13] MEDS: ZOLPIDEM TARTRATE 5 MG TABLET PO PRN (22:13)
[2017-03-14] MEDS: ACETAMINOPHEN 325 MG TABLET (FP) PO PRN (04:15)
[2017-03-14] MEDS: NAPH,MB-DB/K PH,MBDB POWDER PACKET PO SCH ×3 (06:30→21:32)
[2017-03-14] MEDS ORDERED: SODIUM CHLORIDE 1,000 ML IV ONE (09:45)
[2017-03-14] MEDS ORDERED: PT OWN MED DRAWER 7, Y5N ONE ×2 (09:49→21:03)
[2017-03-14] MEDS: POTASSIUM CHLORIDE TABS 20 MEQ TABLET.ER (FP) PO SCH (09:57)
[2017-03-14] MEDS: predniSONE 10 MG TABLET (UD) PO SCH (09:58)
[2017-03-14] MEDS: PANTOPRAZOLE 40 MG TABLET (FP) PO SCH ×2 (09:58→21:31)
[2017-03-14] MEDS: risperiDONE 1 MG TABLET (FP) PO SCH ×2 (09:58→21:31)
--- NOTE | 2017-03-14 09:58 | PN ---
Progress Note (short form) - Note Progress Note: Neurology History of Present Illness 46 year old female presented to ER completely unresponsive, Rossy coma scale of 3, who was "found down" possibly for several days and last known well two days prior to admission. Found in her own urine and feces without explanation of why. Concern for airway protection and ER intubated and put on mechanical ventilation in the ER. CT head completed and did not show acute changes. UTox positive for benzo, barbiturates, and opiods. Also with WBC of 18. Concern for drug overdose, was in ICU in close monitoring, eventually extubated and downgraded to telemetry. Has been more awake, alert, responsive, tracking examiner, conversive. Able to tell me she is in the hospital, the date, name of President. CT head repeated and did not show acute changes. EMG report reviewed and showed critical illness myopathy which appears to have improved. She is moving extremities over head without difficulty now, has been neurologically stable. Paperwork sent out for placement. Spoke to social media analyst regarding SNF. Active Medications Acetaminophen (Tylenol -) 650 mg PO Q6H PRN PRN Reason: FEVER OR PAIN Last Admin: 03/14/17 04:15 Dose: 650 mg Bacitracin (Bacitracin -) 1 applic TP BID [facility] Last Admin: 03/13/17 21:23 Dose: 1 applic Collagenase (Santyl -) 1 applic TP DAILY [facility] Last Admin: 03/13/17 10:39 Dose: 1 applic Sodium Chloride (Normal Saline -) 1,000 mls @ 100 mls/hr IV ONCE ONE Stop: 03/14/17 19:44 Pantoprazole Sodium (Protonix -) 40 mg PO BID [facility] Last Admin: 03/13/17 21:24 Dose: 40 mg Potassium Chloride (K-Dur -) 40 meq PO DAILY [facility] Last Admin: 03/13/17 10:38 Dose: 40 meq Potassium Phos/Sodium Phos (Phos-Nak Packet -) 1 packet PO TID [facility] Last Admin: 03/14/17 06:30 Dose: 1 packet Prednisone (Deltasone -) 10 mg PO DAILY [facility] Last Admin: 03/13/17 10:36 Dose: 10 mg Risperidone (Risperdal -) 1 mg PO BID [facility] Last Admin: 03/13/17 21:24 Dose: 1 mg Zolpidem Tartrate (Ambien -) 5 mg PO HS PRN Last Admin: 03/13/17 22:13 Dose: 5 mg *Physical Exam Last Vital Signs Temp Pulse Resp BP Pulse Ox 98.8 F 126 H 20 109/94 98 03/14/17 08:00 03/14/17 09:00 03/14/17 09:00 03/14/17 09:00 03/13/17 21:00 Awake, tracking examiner, verbal and cooperative, conversive, maintains attention Squeezing hand to command, raising arms or legs to command, moving b/l UE with full range of motion No hemiparesis Intact to tactile stimulation Finger to nose intact Lungs sounds mechanical RRR Abdomen soft Gait deferred CBCD WBC 4.9 K/mm3 (4.0-10.0) 03/13/17 06:00 RBC 3.90 M/mm3 (3.60-5.2) 03/13/17 06:00 Hgb 9.3 GM/dL (10.7-15.3) L 03/13/17 06:00 Hct 29.4 % (32.4-45.2) L 03/13/17 06:00 MCV 75.3 fl (80-96) L 03/13/17 06:00 MCHC 31.7 g/dl (32.0-36.0) L 03/13/17 06:00 RDW 26.1 % (11.6-15.6) H 03/13/17 06:00 Plt Count 247 K/MM3 (134-434) 03/13/17 06:00 MPV 9.7 fl (7.5-11.1) 03/13/17 06:00 CMP Sodium 142 mmol/L (136-145) 03/12/17 05:35 Potassium 4.7 mmol/L (3.5-5.1) D 03/12/17 05:35 Chloride 106 mmol/L (98-107) 03/12/17 05:35 Carbon Dioxide 27 mmol/L (21-32) 03/12/17 05:35 Anion Gap 9 (8-16) 03/12/17 05:35 BUN 11 mg/dL (7-18) D 03/12/17 05:35 Creatinine 0.6 mg/dL (0.55-1.02) 03/12/17 05:35 Creat Clearance w eGFR > 60 (>60) 03/12/17 05:35 Calcium 8.9 mg/dL (8.5-10.1) 03/12/17 05:35 Total Bilirubin 0.4 mg/dL (0.2-1.0) 03/12/17 05:35 AST 27 U/L (15-37) D 03/12/17 05:35 ALT 51 U/L (12-78) D 03/12/17 05:35 Alkaline Phosphatase 52 U/L (45-117) 03/12/17 05:35 Total Protein 5.5 g/dl (6.4-8.2) L 03/12/17 05:35 Albumin 2.9 g/dl (3.4-5.0) L 03/12/17 05:35 CT head repeat reviewed Plan: 46 year old female presented to ER completely unresponsive, [place] coma scale of 3, who was "found down" possibly for several days and last known well two days ago. Found in her own urine and feces without explanation of why. Concern for airway protection and ER intubated and put on mechanical ventilation, under close observation in the ICU. CT head completed and did not show acute changes. Repeat CT head without acute changes UTox positive for benzo, barbiturates, and opiods. Likely drug overdose Hydration as needed Weaned from mechanical vent, comfortable on room air No evidence of seizures Mental status improved, possibly at baseline Critical illness myopathy on EMG, strenght improved Started on Risperdal 1mg bid intermediate manager working on placement
[2017-03-14] MEDS: BACITRACIN 15 GM TUBE TOPICAL OINTMENT TP SCH ×2 (09:59→21:32)
[2017-03-14] MEDS: COLLAGENASE CLOSTRIDIUM HIST. 30 GRAMS TUBE TP SCH (09:59)
--- NOTE | 2017-03-14 12:07 | PN ---
Progress Note, Physician History of Present Illness: Mental status improved, did not tolerate PT today due to diffuse weakness. - Current Medication List Current Medications: Active Medications Acetaminophen (Tylenol -) 650 mg PO Q6H PRN PRN Reason: FEVER OR PAIN Last Admin: 03/14/17 04:15 Dose: 650 mg Bacitracin (Bacitracin -) 1 applic TP BID [facility] Last Admin: 03/14/17 09:59 Dose: 1 applic Collagenase (Santyl -) 1 applic TP DAILY [facility] Last Admin: 03/14/17 09:59 Dose: 1 applic Sodium Chloride (Normal Saline -) 1,000 mls @ 100 mls/hr IV ONCE ONE Stop: 03/14/17 19:44 Last Admin: 03/14/17 10:50 Dose: 100 mls/hr Pantoprazole Sodium (Protonix -) 40 mg PO BID [facility] Last Admin: 03/14/17 09:58 Dose: 40 mg Potassium Chloride (K-Dur -) 40 meq PO DAILY [facility] Last Admin: 03/14/17 09:57 Dose: 40 meq Potassium Phos/Sodium Phos (Phos-Nak Packet -) 1 packet PO TID [facility] Last Admin: 03/14/17 06:30 Dose: 1 packet Prednisone (Deltasone -) 10 mg PO DAILY [facility] Last Admin: 03/14/17 09:58 Dose: 10 mg Risperidone (Risperdal -) 1 mg PO BID [facility] Last Admin: 03/14/17 09:58 Dose: 1 mg Zolpidem Tartrate (Ambien -) 5 mg PO HS PRN Last Admin: 03/13/17 22:13 Dose: 5 mg - Objective Vital Signs: Vital Signs Temperature 98.8 F 03/14/17 08:00 Pulse Rate 126 H 03/14/17 09:00 Respiratory Rate 20 03/14/17 09:00 Blood Pressure 109/94 03/14/17 09:00 O2 Sat by Pulse Oximetry (%) 98 03/13/17 21:00 Constitutional: Yes: No Distress, Calm, Thin Neck: Yes: Supple Cardiovascular: Yes: Regular Rate and Rhythm Respiratory: Yes: Regular, Diminished Gastrointestinal: Yes: Normal Bowel Sounds, Soft Edema: No Labs: CBC, BMP 03/13/17 06:00 03/12/17 05:35 INR, PTT INR 1.20 (0.82-1.09) H 03/01/17 08:30 Problem List - Problems (1) Overdose Code(s): T50.901A - POISONING BY UNSP DRUG/MEDS/BIOL SUBST, ACCIDENTAL, INIT Qualifiers: Encounter type: initial encounter Injury intent: undetermined intent Qualified Code(s): T50.904A - Poisoning by unspecified drugs, medicaments and biological substances, undetermined, initial encounter; T50.904A - Poisoning by unspecified drugs, medicaments and biological substances, undetermined, initial encounter (2) Respiratory failure Code(s): J96.90 - RESPIRATORY FAILURE, UNSP, UNSP W HYPOXIA OR HYPERCAPNIA Qualifiers: Chronicity: acute (3) Aspiration pneumonia Code(s): J69.0 - PNEUMONITIS DUE TO INHALATION OF FOOD AND VOMIT Qualifiers: Aspiration pneumonia type: due to vomit Lung location: unspecified part of lung (4) Lupus (systemic lupus erythematosus) Code(s): M32.9 - SYSTEMIC LUPUS ERYTHEMATOSUS, UNSPECIFIED (5) Anemia Code(s): D64.9 - ANEMIA, UNSPECIFIED Qualifiers: Anemia type: unspecified type Qualified Code(s): D64.9 - Anemia, unspecified; D64.9 - Anemia, unspecified Assessment/Plan 1. Post acute respiratory failure, persistent toxic metabolic encephalopathy, possible drug overdose 2. Sepsis syndrome, resolved 3. History of Lupus 4. Acute on chronic renal insufficiency, pre-renal azotemia, resolved 5. Anemia 6. Hypokalemia 7. 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 DVT prophylaxis, steroids with GI prophylaxis, PT->rehab 2. Neurological input appreciated
--- NOTE | 2017-03-14 12:49 | PN ---
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 Pt tolerating diet without signs or symptoms of Dysphagia. Recalled my name and occupation. Case reviewed with PMD. Excellent potential for improvement with rehabilitation.
--- NOTE | 2017-03-14 13:27 | PN ---
Progress Note, Physician History of Present Illness: very alert - Current Medication List Current Medications: Active Medications Acetaminophen (Tylenol -) 650 mg PO Q6H PRN PRN Reason: FEVER OR PAIN Last Admin: 03/14/17 04:15 Dose: 650 mg Bacitracin (Bacitracin -) 1 applic TP BID [facility] Last Admin: 03/14/17 09:59 Dose: 1 applic Collagenase (Santyl -) 1 applic TP DAILY [facility] Last Admin: 03/14/17 09:59 Dose: 1 applic Sodium Chloride (Normal Saline -) 1,000 mls @ 100 mls/hr IV ONCE ONE Stop: 03/14/17 19:44 Last Admin: 03/14/17 10:50 Dose: 100 mls/hr Pantoprazole Sodium (Protonix -) 40 mg PO BID [facility] Last Admin: 03/14/17 09:58 Dose: 40 mg Potassium Chloride (K-Dur -) 40 meq PO DAILY [facility] Last Admin: 03/14/17 09:57 Dose: 40 meq Potassium Phos/Sodium Phos (Phos-Nak Packet -) 1 packet PO TID [facility] Last Admin: 03/14/17 06:30 Dose: 1 packet Prednisone (Deltasone -) 10 mg PO DAILY [facility] Last Admin: 03/14/17 09:58 Dose: 10 mg Risperidone (Risperdal -) 1 mg PO BID [facility] Last Admin: 03/14/17 09:58 Dose: 1 mg Zolpidem Tartrate (Ambien -) 5 mg PO HS PRN Last Admin: 03/13/17 22:13 Dose: 5 mg - Objective Vital Signs: Vital Signs Temperature 98.8 F 03/14/17 08:00 Pulse Rate 126 H 03/14/17 09:00 Respiratory Rate 20 03/14/17 09:00 Blood Pressure 109/94 03/14/17 09:00 O2 Sat by Pulse Oximetry (%) 98 03/13/17 21:00 Constitutional: Yes: No Distress HENT: Yes: Atraumatic Neck: Yes: Supple Cardiovascular: Yes: Regular Rate and Rhythm Respiratory: Yes: CTA Bilaterally Gastrointestinal: Yes: Normal Bowel Sounds Edema: No Peripheral Pulses WNL: Yes Integumentary: Yes: Other (skin wound have dry eschar) Neurological: Yes: Alert, Oriented, Other (fantasma strenght getting better) Labs: CBC, BMP 03/13/17 06:00 03/12/17 05:35 INR, PTT INR 1.20 (0.82-1.09) H 03/01/17 08:30 Problem List - Problems (1) TRENT (acute kidney injury) Assessment/Plan: CR WNL Code(s): N17.9 - ACUTE KIDNEY FAILURE, UNSPECIFIED (2) Anoxic brain injury Assessment/Plan: on [place] alert Code(s): G93.1 - ANOXIC BRAIN DAMAGE, NOT ELSEWHERE CLASSIFIED (3) Coma Assessment/Plan: awake and alert Code(s): R40.20 - UNSPECIFIED COMA Qualifiers: Coma depth: [place] coma 3-8 Coma timing: at arrival to emergency department Qualified Code(s): R40.2432 - [place] coma scale score 3-8, at arrival to emergency department; R40.2432 - [place] coma scale score 3-8, at arrival to emergency department; R40.2432 - [place] coma scale score 3-8, at arrival to emergency department (4) Overdose Assessment/Plan: reportedly pt is on pain meds per photofinishing laboratory worker Code(s): T50.901A - POISONING BY UNSP DRUG/MEDS/BIOL SUBST, ACCIDENTAL, INIT Qualifiers: Encounter type: initial encounter Injury intent: undetermined intent Qualified Code(s): T50.904A - Poisoning by unspecified drugs, medicaments and biological substances, undetermined, initial encounter; T50.904A - Poisoning by unspecified drugs, medicaments and biological substances, undetermined, initial encounter (5) Polypharmacy Code(s): Z79.899 - OTHER SENIOR LIVING (CURRENT) DRUG THERAPY (6) Respiratory failure Assessment/Plan: on [place] Code(s): J96.90 - RESPIRATORY FAILURE, UNSP, UNSP W HYPOXIA OR HYPERCAPNIA Qualifiers: Chronicity: acute (7) Rhabdomyolysis Code(s): M62.82 - RHABDOMYOLYSIS (8) Unresponsive Code(s): R41.89 - OTH SYMPTOMS AND SIGNS W COGNITIVE FUNCTIONS AND AWARENESS (9) UTI (urinary tract infection) Code(s): N39.0 - URINARY TRACT INFECTION, SITE NOT SPECIFIED (10) Lupus (systemic lupus erythematosus) Assessment/Plan: will get wound care involved for skin wounds Code(s): M32.9 - SYSTEMIC LUPUS ERYTHEMATOSUS, UNSPECIFIED (11) Myopathy Assessment/Plan: pt able to walk few steps with walker Code(s): G72.9 - MYOPATHY, UNSPECIFIED (12) Skin ulcer Assessment/Plan: on the sides where pt was laying ..left hep and left side of chest and left malleolous its healing..eshar formation dressing in place chriss get wound care involve Code(s): L98.499 - NON-PRESSURE CHRONIC ULCER OF SKIN OF SITES W UNSP SEVERITY
--- NOTE | 2017-03-14 14:38 | PN ---
Progress Note (short form) - Note Progress Note: Vascular Surgery Pt seen and examined. Left upper back and left hip ulcer with eschar. Getting better on santyl -- however needs operative debridment to remove eschar and necrotic tissue. Spoke to pt and she understands Moises machado DO
--- NOTE | 2017-03-14 14:38 | PN ---
Progress Note, Physician History of Present Illness: stable no new issues - Current Medication List Current Medications: Active Medications Acetaminophen (Tylenol -) 650 mg PO Q6H PRN PRN Reason: FEVER OR PAIN Last Admin: 03/14/17 04:15 Dose: 650 mg Bacitracin (Bacitracin -) 1 applic TP BID [facility] Last Admin: 03/14/17 09:59 Dose: 1 applic Collagenase (Santyl -) 1 applic TP DAILY [facility] Last Admin: 03/14/17 09:59 Dose: 1 applic Sodium Chloride (Normal Saline -) 1,000 mls @ 100 mls/hr IV ONCE ONE Stop: 03/14/17 19:44 Last Admin: 03/14/17 10:50 Dose: 100 mls/hr Pantoprazole Sodium (Protonix -) 40 mg PO BID [facility] Last Admin: 03/14/17 09:58 Dose: 40 mg Potassium Chloride (K-Dur -) 40 meq PO DAILY [facility] Last Admin: 03/14/17 09:57 Dose: 40 meq Potassium Phos/Sodium Phos (Phos-Nak Packet -) 1 packet PO TID [facility] Last Admin: 03/14/17 14:01 Dose: 1 packet Prednisone (Deltasone -) 10 mg PO DAILY [facility] Last Admin: 03/14/17 09:58 Dose: 10 mg Risperidone (Risperdal -) 1 mg PO BID [facility] Last Admin: 03/14/17 09:58 Dose: 1 mg Zolpidem Tartrate (Ambien -) 5 mg PO HS PRN Last Admin: 03/13/17 22:13 Dose: 5 mg - Objective Vital Signs: Vital Signs Temperature 98.8 F 03/14/17 08:00 Pulse Rate 126 H 03/14/17 09:00 Respiratory Rate 20 03/14/17 09:00 Blood Pressure 109/94 03/14/17 09:00 O2 Sat by Pulse Oximetry (%) 98 03/13/17 21:00 Constitutional: Yes: No Distress, Calm Cardiovascular: Yes: Regular Rate and Rhythm Respiratory: Yes: Regular, CTA Bilaterally Gastrointestinal: Yes: Normal Bowel Sounds, Soft Musculoskeletal: Yes: WNL Extremities: Yes: Other (left side completely healed rt side wounds still healing) Neurological: Yes: Alert Psychiatric: Yes: Alert Labs: CBC, BMP 03/13/17 06:00 03/12/17 05:35 INR, PTT INR 1.20 (0.82-1.09) H 03/01/17 08:30 Assessment/Plan Problem List Problem List - Problems (1) TRENT (acute kidney injury) Assessment/Plan: CR WNL Code(s): N17.9 - ACUTE KIDNEY FAILURE, UNSPECIFIED (2) Anoxic brain injury Assessment/Plan: on [place] alert Code(s): G93.1 - ANOXIC BRAIN DAMAGE, NOT ELSEWHERE CLASSIFIED (3) Coma Assessment/Plan: awake and alert Code(s): R40.20 - UNSPECIFIED COMA Qualifiers: Coma depth: [place] coma 3-8 Coma timing: at arrival to emergency department Qualified Code(s): R40.2432 - [place] coma scale score 3-8, at arrival to emergency department; R40.2432 - [place] coma scale score 3-8, at arrival to emergency department; R40.2432 - [place] coma scale score 3-8, at arrival to emergency department (4) Overdose Assessment/Plan: reportedly pt is on pain meds per meat processing center manager Code(s): T50.901A - POISONING BY UNSP DRUG/MEDS/BIOL SUBST, ACCIDENTAL, INIT Qualifiers: Encounter type: initial encounter Injury intent: undetermined intent Qualified Code(s): T50.904A - Poisoning by unspecified drugs, medicaments and biological substances, undetermined, initial encounter; T50.904A - Poisoning by unspecified drugs, medicaments and biological substances, undetermined, initial encounter (5) Polypharmacy Code(s): Z79.899 - OTHER AN/SQQ 89(V)15 SONAR SYSTEM JOURNEYMAN (CURRENT) DRUG THERAPY (6) Respiratory failure Assessment/Plan: on [place] Code(s): J96.90 - RESPIRATORY FAILURE, UNSP, UNSP W HYPOXIA OR HYPERCAPNIA Qualifiers: Chronicity: acute (7) Rhabdomyolysis Code(s): M62.82 - RHABDOMYOLYSIS (8) Unresponsive Code(s): R41.89 - OTH SYMPTOMS AND SIGNS W COGNITIVE FUNCTIONS AND AWARENESS (9) UTI (urinary tract infection) Code(s): N39.0 - URINARY TRACT INFECTION, SITE NOT SPECIFIED (10) Lupus (systemic lupus erythematosus) Assessment/Plan: will get wound care involved for skin wounds Code(s): M32.9 - SYSTEMIC LUPUS ERYTHEMATOSUS, UNSPECIFIED (11) Myopathy Code(s): G72.9 - MYOPATHY, UNSPECIFIED asp pna leukocytosis uti plan continues to improve continue monitoring rest as per primary team vascular planning to debride the wounds
--- NOTE | 2017-03-14 17:43 | CONSULT ---
Consult Detox [facility] Reason for Current Admission/Consult: presumed drug overdose - opioids and sedatives Referred by:: Chelsy reyez - History History of Present Illness: 46 yo f with pMHX SLE as per [facility] reference # [id number] tommie is prescribged morphien sulphate 30mg er ATC bid for chronic pain and morphien IR 15mg q4 hr prn for BTP with phenobarb 60mg tid. by dr. Candelario Avila and Chato Canela at [facility] for chronic pain, she is not aware why the phenobarb but has been on benzodiazepiens in past. Dnies h/o addiction, alcohol, or any other illicit drug use, does not report misusing hermedication, no h/o seizures in past, no h/o substance absue treatment in past. does not know what happened to her but was informed she was found unconsscious, now awake alert and A and ox3, with multiple ulcers on left side from lying unconscious on ground for unknown period of time, left thigh will be debrided. 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 admitted last month with AMS after being found unresponsive on floor for unknown period of time in feces, now awake aand oriented x3 but can not remember what happened, denies illicit drug use or misuse of prescribed medications, is c/o severe pain all over body, insomnia. denies suicide attempt or suicidal ideation no h.o substance use, acohol use or smoking cigarrettes. patient does not required detoxification or substance abuse treatment at this time but recommend treating pain with morphine sulphate IR 15mg q4h prn as tolerated hold for sedation and valium for sleep. Titrate for response, valium 10mg q4h prn for anxiety will help control pain. Assessment Plan - Diagnosis (1) Lupus (systemic lupus erythematosus) Status: Chronic (2) Chronic pain Status: Chronic Qualifiers: Chronic pain type: chronic pain syndrome Qualified Code(s): G89.4 - Chronic pain syndrome; G89.4 - Chronic pain syndrome (3) Insomnia Status: Acute - Medication Detox Regimen/Protocol: Not Applicable
[2017-03-14] MEDS ORDERED: diazePAM 5 MG TABLET PO ONE (18:15)
[2017-03-14] MEDS: morphine SULFATE IMMEDIATE RELEASE 30 MG TAB PO PRN (20:09)
[2017-03-14] MEDS ORDERED: DOCUSATE SODIUM 100 MG CAPSULE (FP) PO SCH (22:00)
[2017-03-14] MEDS ORDERED: diazePAM 5 MG TABLET PO SCH (22:00)
[2017-03-14] MEDS: ZOLPIDEM TARTRATE 5 MG TABLET PO PRN (23:11)
[2017-03-15] MEDS: morphine SULFATE IMMEDIATE RELEASE 30 MG TAB PO PRN ×2 (00:48→15:34)
[2017-03-15] MEDS: NAPH,MB-DB/K PH,MBDB POWDER PACKET PO SCH ×3 (05:39→21:21)
--- NOTE | 2017-03-15 08:55 | PN ---
[facility] Progress Note (SOAP) Subjective: patient reports good response to po morphine given and valium for sleep susanr is now npo for surgery - debridement of wound and pain 03/20 Objective: 03/15/17 08:50 Vital Signs - 24 hr 03/14/17 03/14/17 03/14/17 09:00 14:41 17:55 Temperature 98.7 F 98.6 F Pulse Rate 126 H 116 H 104 H Respiratory 20 20 18 Rate Blood Pressure 109/94 105/67 124/77 O2 Sat by Pulse 100 Oximetry (%) 03/14/17 03/14/17 03/15/17 21:00 22:00 06:00 Temperature 98.3 F 99 F Pulse Rate 102 H 92 H Respiratory 20 20 Rate Blood Pressure 110/67 121/73 O2 Sat by Pulse 99 Oximetry (%) Laboratory Tests 02/26/17 02/26/17 02/26/17 13:02 13:25 13:25 WBC 18.2 H RBC 6.06 H Hgb 13.5 Hct 44.9 MCV 74.1 L MCH 22.3 L MCHC 30.1 L RDW 22.9 H Plt Count 221 MPV 10.0 Total Counted 100 Neutrophils % No Result Required. Neutrophils % (Manual) 85 H Band Neuts % (Manual) 2 Lymphocytes % No Result Required. Lymphocytes % (Manual) 8 Monocytes % Monocytes % (Manual) 5 Eosinophils % Eosinophils % (Manual) 0 Basophils % Hypochromia 1+ Platelet Estimate Adequate Platelet Comment Anisocytosis 3+ Microcytosis 1+ Target Cells 1+ Tear Drop Cells Ovalocytes 1+ Fragmented RBCs ESR Haptoglobin PT with INR 16.30 H INR 1.47 H PTT (Actin FS) 28.5 Puncture Site ABG pH ABG pCO2 at Pt Temp ABG pO2 at Pt Temp ABG HCO3 ABG O2 Sat (Measured) ABG O2 Content ABG Base Excess Roney Test VBG pH POC VBG pCO2 POC VBG pO2 Mixed VBG HCO3 Carboxyhemoglobin Methemoglobin O2 Delivery Device Oxygen Flow Rate Vent Mode Vent Rate Mechanical Rate PEEP Pressure Support Vent Sodium Potassium Chloride Carbon Dioxide Anion Gap BUN Creatinine Creat Clearance w eGFR POC Glucometer [phone] Random Glucose Serum Osmolality Lactic Acid Calcium Phosphorus Magnesium Iron TIBC Iron Saturation Ferritin Total Bilirubin AST ALT Alkaline Phosphatase Ammonia LD Total Creatine Kinase Creatine Kinase Index CK-MB (CK-2) Troponin I C-Reactive Protein Total Protein Albumin Aldolase Vitamin B12 Serum Folate TSH Free T4 Free T3 Cortisol AM Sample Urine Color Urine Appearance Urine pH Urine Protein Urine Glucose (UA) Urine Ketones Urine Blood Urine Nitrite Urine Bilirubin Urine Urobilinogen Stool Occult Blood Opiates Screen Methadone Screen Barbiturate Screen Phencyclidine Screen Ur Amphetamines Screen MDMA (Ecstasy) Screen Benzodiazepines Screen Cocaine Screen U Marijuana (THC) Screen Alcohol, Quantitative Acetone, Qual GONSALO Screen SS-A/Ro Antibody SS-B/La Antibody Sm ([place]) Antibody HOME CONNECT LPN Antibody Double Strand DNA Ab Complement C3 Complement C4 Tot Complement (CH50) Blood Type Antibody Screen 02/26/17 02/26/17 02/26/17 13:25 13:25 13:25 WBC RBC Hgb Hct MCV MCH MCHC RDW Plt Count MPV Total Counted Neutrophils % Neutrophils % (Manual) Band Neuts % (Manual) Lymphocytes % Lymphocytes % (Manual) Monocytes % Monocytes % (Manual) Eosinophils % Eosinophils % (Manual) Basophils % Hypochromia Platelet Estimate Platelet Comment Anisocytosis Microcytosis Target Cells Tear Drop Cells Ovalocytes Fragmented RBCs ESR Haptoglobin PT with INR INR PTT (Actin FS) Puncture Site ABG pH ABG pCO2 at Pt Temp ABG pO2 at Pt Temp ABG HCO3 ABG O2 Sat (Measured) ABG O2 Content ABG Base Excess Roney Test VBG pH POC VBG pCO2 POC VBG pO2 Mixed VBG HCO3 Carboxyhemoglobin Methemoglobin O2 Delivery Device Oxygen Flow Rate Vent Mode Vent Rate Mechanical Rate PEEP Pressure Support Vent Sodium 154 H Potassium 5.0 Chloride 121 H Carbon Dioxide 26 Anion Gap 7 L BUN 112 H* Creatinine 1.8 H Creat Clearance w eGFR 30.86 POC Glucometer Random Glucose 159 H Serum Osmolality Lactic Acid 2.7 H* Calcium 7.6 L Phosphorus Magnesium Iron TIBC Iron Saturation Ferritin Total Bilirubin 0.4 AST 73 H ALT 44 Alkaline Phosphatase 74 Ammonia LD Total Creatine Kinase 956 H Creatine Kinase Index 0.1 CK-MB (CK-2) 1.409 Troponin I 0.02 C-Reactive Protein Total Protein 6.5 Albumin 3.6 Aldolase Vitamin B12 Serum Folate TSH Free T4 Free T3 Cortisol AM Sample Urine Color Urine Appearance Urine pH Urine Protein Urine Glucose (UA) Urine Ketones Urine Blood Urine Nitrite Urine Bilirubin Urine Urobilinogen Stool Occult Blood Opiates Screen Methadone Screen Barbiturate Screen Phencyclidine Screen Ur Amphetamines Screen MDMA (Ecstasy) Screen Benzodiazepines Screen Cocaine Screen U Marijuana (THC) Screen Alcohol, Quantitative Acetone, Qual GONSALO Screen SS-A/Ro Antibody SS-B/La Antibody Sm ([place]) Antibody HOME CONNECT LPN Antibody Double Strand DNA Ab Complement C3 Complement C4 Tot Complement (CH50) Blood Type O POSITIVE Antibody Screen Negative 02/26/17 02/26/17 02/26/17 13:38 13:40 13:40 WBC RBC Hgb Hct MCV MCH MCHC RDW Plt Count MPV Total Counted Neutrophils % Neutrophils % (Manual) Band Neuts % (Manual) Lymphocytes % Lymphocytes % (Manual) Monocytes % Monocytes % (Manual) Eosinophils % Eosinophils % (Manual) Basophils % Hypochromia Platelet Estimate Platelet Comment Anisocytosis Microcytosis Target Cells Tear Drop Cells Ovalocytes Fragmented RBCs ESR Haptoglobin PT with INR INR PTT (Actin FS) Puncture Site ABG pH ABG pCO2 at Pt Temp ABG pO2 at Pt Temp ABG HCO3 ABG O2 Sat (Measured) ABG O2 Content ABG Base Excess Roney Test VBG pH 7.35 POC VBG pCO2 48.7 POC VBG pO2 51.6 H Mixed VBG HCO3 26.4 H Carboxyhemoglobin Methemoglobin O2 Delivery Device Oxygen Flow Rate Vent Mode Vent Rate Mechanical Rate PEEP Pressure Support Vent Sodium Potassium Chloride Carbon Dioxide Anion Gap BUN Creatinine Creat Clearance w eGFR POC Glucometer Random Glucose Serum Osmolality Lactic Acid Calcium Phosphorus Magnesium Iron TIBC Iron Saturation Ferritin Total Bilirubin AST ALT Alkaline Phosphatase Ammonia 68.55 H LD Total Creatine Kinase Creatine Kinase Index CK-MB (CK-2) Troponin I C-Reactive Protein Total Protein Albumin Aldolase Vitamin B12 Serum Folate TSH Free T4 Free T3 Cortisol AM Sample Urine Color Yellow Urine Appearance Clear Urine pH 5.0 Urine Protein Negative Urine Glucose (UA) Negative Urine Ketones Negative Urine Blood Negative Urine Nitrite Negative Urine Bilirubin Negative Urine Urobilinogen Negative Stool Occult Blood Opiates Screen Methadone Screen Barbiturate Screen Phencyclidine Screen Ur Amphetamines Screen MDMA (Ecstasy) Screen Benzodiazepines Screen Cocaine Screen U Marijuana (THC) Screen Alcohol, Quantitative Acetone, Qual GONSALO Screen SS-A/Ro Antibody SS-B/La Antibody Sm ([place]) Antibody HOME CONNECT LPN Antibody Double Strand DNA Ab Complement C3 Complement C4 Tot Complement (CH50) Blood Type Antibody Screen 02/26/17 02/26/17 02/26/17 13:40 13:40 13:40 WBC RBC Hgb Hct MCV MCH MCHC RDW Plt Count MPV Total Counted Neutrophils % Neutrophils % (Manual) Band Neuts % (Manual) Lymphocytes % Lymphocytes % (Manual) Monocytes % Monocytes % (Manual) Eosinophils % Eosinophils % (Manual) Basophils % Hypochromia Platelet Estimate Platelet Comment Anisocytosis Microcytosis Target Cells Tear Drop Cells Ovalocytes Fragmented RBCs ESR Haptoglobin PT with INR INR PTT (Actin FS) Puncture Site ABG pH ABG pCO2 at Pt Temp ABG pO2 at Pt Temp ABG HCO3 ABG O2 Sat (Measured) ABG O2 Content ABG Base Excess Roney Test VBG pH POC VBG pCO2 POC VBG pO2 Mixed VBG HCO3 Carboxyhemoglobin Methemoglobin O2 Delivery Device Oxygen Flow Rate Vent Mode Vent Rate Mechanical Rate PEEP Pressure Support Vent Sodium Potassium Chloride Carbon Dioxide Anion Gap BUN Creatinine Creat Clearance w eGFR POC Glucometer Random Glucose Serum Osmolality 366 H Lactic Acid Calcium Phosphorus Magnesium Iron TIBC Iron Saturation Ferritin Total Bilirubin AST ALT Alkaline Phosphatase Ammonia LD Total Creatine Kinase Creatine Kinase Index CK-MB (CK-2) Troponin I C-Reactive Protein Total Protein Albumin Aldolase Vitamin B12 Serum Folate TSH Free T4 Free T3 Cortisol AM Sample Urine Color Urine Appearance Urine pH Urine Protein Urine Glucose (UA) Urine Ketones Urine Blood Urine Nitrite Urine Bilirubin Urine Urobilinogen Stool Occult Blood Opiates Screen Positive Methadone Screen Negative Barbiturate Screen Positive Phencyclidine Screen Negative Ur Amphetamines Screen Negative MDMA (Ecstasy) Screen Negative Benzodiazepines Screen Positive Cocaine Screen Negative U Marijuana (THC) Screen Negative Alcohol, Quantitative < 5.0 Acetone, Qual Trace H GONSALO Screen SS-A/Ro Antibody SS-B/La Antibody Sm ([place]) Antibody HOME CONNECT LPN Antibody Double Strand DNA Ab Complement C3 Complement C4 Tot Complement (CH50) Blood Type Antibody Screen 02/26/17 02/26/17 02/26/17 13:48 13:48 15:16 WBC RBC Hgb Hct MCV MCH MCHC RDW Plt Count MPV Total Counted Neutrophils % Neutrophils % (Manual) Band Neuts % (Manual) Lymphocytes % Lymphocytes % (Manual) Monocytes % Monocytes % (Manual) Eosinophils % Eosinophils % (Manual) Basophils % Hypochromia Platelet Estimate Platelet Comment Anisocytosis Microcytosis Target Cells Tear Drop Cells Ovalocytes Fragmented RBCs ESR Haptoglobin PT with INR INR PTT (Actin FS) Puncture Site Left radial ABG pH 7.33 L ABG pCO2 at Pt Temp 48.0 H ABG pO2 at Pt Temp 445.0 H* ABG HCO3 24.3 ABG O2 Sat (Measured) 99.8 H* ABG O2 Content 17.9 ABG Base Excess -1.4 Roney Test Positive VBG pH POC VBG pCO2 POC VBG pO2 Mixed VBG HCO3 Carboxyhemoglobin 1.0 Methemoglobin 0.6 O2 Delivery Device Vent Oxygen Flow Rate 100 Vent Mode Ac Vent Rate 12 Mechanical Rate Yes PEEP 5.0 Pressure Support Vent 400 Sodium Potassium Chloride Carbon Dioxide Anion Gap BUN Creatinine Creat Clearance w eGFR POC Glucometer Random Glucose Serum Osmolality Lactic Acid 1.7 Calcium Phosphorus Magnesium Iron TIBC Iron Saturation Ferritin Total Bilirubin AST ALT Alkaline Phosphatase Ammonia LD Total Creatine Kinase Creatine Kinase Index CK-MB (CK-2) Troponin I C-Reactive Protein Total Protein Albumin Aldolase Vitamin B12 Serum Folate TSH Free T4 Free T3 Cortisol AM Sample Urine Color Urine Appearance Urine pH Urine Protein Urine Glucose (UA) Urine Ketones Urine Blood Urine Nitrite Urine Bilirubin Urine Urobilinogen Stool Occult Blood Opiates Screen Methadone Screen Barbiturate Screen Phencyclidine Screen Ur Amphetamines Screen MDMA (Ecstasy) Screen Benzodiazepines Screen Cocaine Screen U Marijuana (THC) Screen Alcohol, Quantitative Acetone, Qual GONSALO Screen SS-A/Ro Antibody SS-B/La Antibody Sm ([place]) Antibody HOME CONNECT LPN Antibody Double Strand DNA Ab Complement C3 Complement C4 Tot Complement (CH50) Blood Type Antibody Screen 02/27/17 02/27/17 02/27/17 05:00 05:00 07:10 WBC 18.0 H RBC 5.17 Hgb 11.9 D Hct 37.9 D MCV 73.3 L MCH 23.0 L MCHC 31.3 L RDW 22.9 H Plt Count 183 MPV 10.0 Total Counted Neutrophils % 82.8 Neutrophils % (Manual) Band Neuts % (Manual) Lymphocytes % 4.5 L Lymphocytes % (Manual) Monocytes % 11.9 H Monocytes % (Manual) Eosinophils % 0.6 Eosinophils % (Manual) Basophils % 0.2 Hypochromia Platelet Estimate Platelet Comment Anisocytosis Microcytosis Target Cells Tear Drop Cells Ovalocytes Fragmented RBCs ESR Haptoglobin PT with INR INR PTT (Actin FS) Puncture Site Right radial ABG pH 7.40 ABG pCO2 at Pt Temp 36.4 D ABG pO2 at Pt Temp 208.0 H* ABG HCO3 22.1 ABG O2 Sat (Measured) 99.6 H* ABG O2 Content 16.9 ABG Base Excess -1.8 Roney Test Positive VBG pH POC VBG pCO2 POC VBG pO2 Mixed VBG HCO3 Carboxyhemoglobin Methemoglobin O2 Delivery Device Vent Oxygen Flow Rate 50 Vent Mode A/c Vent Rate 16 Mechanical Rate Yes PEEP 5.0 Pressure Support Vent 400 Sodium 155 H Potassium 4.9 Chloride 124 H Carbon Dioxide 24 Anion Gap 7 L BUN 70 H D Creatinine 1.4 H D Creat Clearance w eGFR 40.66 POC Glucometer Random Glucose 177 H Serum Osmolality Lactic Acid Calcium 8.1 L Phosphorus Magnesium Iron TIBC Iron Saturation Ferritin Total Bilirubin 0.5 D AST 117 H D ALT 56 D Alkaline Phosphatase 76 Ammonia LD Total Creatine Kinase Creatine Kinase Index CK-MB (CK-2) Troponin I C-Reactive Protein Total Protein 6.4 Albumin 3.3 L Aldolase Vitamin B12 Serum Folate TSH Free T4 Free T3 Cortisol AM Sample Urine Color Urine Appearance Urine pH Urine Protein Urine Glucose (UA) Urine Ketones Urine Blood Urine Nitrite Urine Bilirubin Urine Urobilinogen Stool Occult Blood Opiates Screen Methadone Screen Barbiturate Screen Phencyclidine Screen Ur Amphetamines Screen MDMA (Ecstasy) Screen Benzodiazepines Screen Cocaine Screen U Marijuana (THC) Screen Alcohol, Quantitative Acetone, Qual GONSALO Screen SS-A/Ro Antibody SS-B/La Antibody Sm ([place]) Antibody HOME CONNECT LPN Antibody Double Strand DNA Ab Complement C3 Complement C4 Tot Complement (CH50) Blood Type Antibody Screen 02/28/17 02/28/17 02/28/17 05:15 05:15 05:15 WBC 14.6 H RBC 4.66 Hgb 10.7 D Hct 33.9 MCV 72.8 L MCH 22.9 L MCHC 31.5 L RDW 22.4 H Plt Count 197 MPV 12.4 H D Total Counted Neutrophils % 83.0 H Neutrophils % (Manual) Band Neuts % (Manual) Lymphocytes % 5.2 L Lymphocytes % (Manual) Monocytes % 10.1 Monocytes % (Manual) Eosinophils % 1.4 D Eosinophils % (Manual) Basophils % 0.3 Hypochromia Platelet Estimate Platelet Comment Anisocytosis Microcytosis Target Cells Tear Drop Cells Ovalocytes Fragmented RBCs ESR Haptoglobin PT with INR INR PTT (Actin FS) Puncture Site ABG pH ABG pCO2 at Pt Temp ABG pO2 at Pt Temp ABG HCO3 ABG O2 Sat (Measured) ABG O2 Content ABG Base Excess Roney Test VBG pH POC VBG pCO2 POC VBG pO2 Mixed VBG HCO3 Carboxyhemoglobin Methemoglobin O2 Delivery Device Oxygen Flow Rate Vent Mode Vent Rate Mechanical Rate PEEP Pressure Support Vent Sodium 157 H Potassium 4.3 Chloride 124 H Carbon Dioxide 26 Anion Gap 7 L BUN 38 H D Creatinine 1.2 H Creat Clearance w eGFR 48.58 POC Glucometer Random Glucose 166 H Serum Osmolality Lactic Acid Calcium 8.0 L Phosphorus Magnesium Iron TIBC Iron Saturation Ferritin Total Bilirubin 0.5 AST 81 H D ALT 44 D Alkaline Phosphatase 76 Ammonia LD Total Creatine Kinase Creatine Kinase Index CK-MB (CK-2) Troponin I C-Reactive Protein Total Protein 5.9 L Albumin 3.0 L Aldolase Vitamin B12 Serum Folate TSH 1.91 Free T4 0.87 Cancelled Free T3 Cortisol AM Sample Urine Color Urine Appearance Urine pH Urine Protein Urine Glucose (UA) Urine Ketones Urine Blood Urine Nitrite Urine Bilirubin Urine Urobilinogen Stool Occult Blood Opiates Screen Methadone Screen Barbiturate Screen Phencyclidine Screen Ur Amphetamines Screen MDMA (Ecstasy) Screen Benzodiazepines Screen Cocaine Screen U Marijuana (THC) Screen Alcohol, Quantitative Acetone, Qual GONSALO Screen SS-A/Ro Antibody SS-B/La Antibody Sm ([place]) Antibody HOME CONNECT LPN Antibody Double Strand DNA Ab Complement C3 Complement C4 Tot Complement (CH50) Blood Type Antibody Screen 02/28/17 02/28/17 02/28/17 05:15 05:15 07:35 WBC RBC Hgb Hct MCV MCH MCHC RDW Plt Count MPV Total Counted Neutrophils % Neutrophils % (Manual) Band Neuts % (Manual) Lymphocytes % Lymphocytes % (Manual) Monocytes % Monocytes % (Manual) Eosinophils % Eosinophils % (Manual) Basophils % Hypochromia Platelet Estimate Platelet Comment Anisocytosis Microcytosis Target Cells Tear Drop Cells Ovalocytes Fragmented RBCs ESR Haptoglobin PT with INR INR PTT (Actin FS) Puncture Site Right radial ABG pH 7.43 ABG pCO2 at Pt Temp 38.6 ABG pO2 at Pt Temp 117.0 H D ABG HCO3 25.2 ABG O2 Sat (Measured) 98.6 ABG O2 Content 14.2 L ABG Base Excess 1.4 Roney Test Positive VBG pH POC VBG pCO2 POC VBG pO2 Mixed VBG HCO3 Carboxyhemoglobin Methemoglobin O2 Delivery Device Vent Oxygen Flow Rate 40% Vent Mode A/c Vent Rate 16 Mechanical Rate Yes PEEP 5.0 Pressure Support Vent 400 Sodium Potassium Chloride Carbon Dioxide Anion Gap BUN Creatinine Creat Clearance w eGFR POC Glucometer Random Glucose Serum Osmolality Lactic Acid Calcium Phosphorus Magnesium Iron TIBC Iron Saturation Ferritin Total Bilirubin AST ALT Alkaline Phosphatase Ammonia LD Total Creatine Kinase Creatine Kinase Index CK-MB (CK-2) Troponin I C-Reactive Protein Total Protein Albumin Aldolase Vitamin B12 Serum Folate TSH Free T4 Free T3 1.9 L Cortisol AM Sample 28.3 Urine Color Urine Appearance Urine pH Urine Protein Urine Glucose (UA) Urine Ketones Urine Blood Urine Nitrite Urine Bilirubin Urine Urobilinogen Stool Occult Blood Opiates Screen Methadone Screen Barbiturate Screen Phencyclidine Screen Ur Amphetamines Screen MDMA (Ecstasy) Screen Benzodiazepines Screen Cocaine Screen U Marijuana (THC) Screen Alcohol, Quantitative Acetone, Qual GONSALO Screen SS-A/Ro Antibody SS-B/La Antibody Sm ([place]) Antibody HOME CONNECT LPN Antibody Double Strand DNA Ab Complement C3 Complement C4 Tot Complement (CH50) Blood Type Antibody Screen 02/28/17 02/28/17 02/28/17 10:57 10:57 10:57 WBC RBC Hgb Hct MCV MCH MCHC RDW Plt Count MPV Total Counted Neutrophils % Neutrophils % (Manual) Band Neuts % (Manual) Lymphocytes % Lymphocytes % (Manual) Monocytes % Monocytes % (Manual) Eosinophils % Eosinophils % (Manual) Basophils % Hypochromia Platelet Estimate Platelet Comment Anisocytosis Microcytosis Target Cells Tear Drop Cells Ovalocytes Fragmented RBCs ESR 39 H Haptoglobin PT with INR 17.90 H INR 1.61 H PTT (Actin FS) Puncture Site ABG pH ABG pCO2 at Pt Temp ABG pO2 at Pt Temp ABG HCO3 ABG O2 Sat (Measured) ABG O2 Content ABG Base Excess Roney Test VBG pH POC VBG pCO2 POC VBG pO2 Mixed VBG HCO3 Carboxyhemoglobin Methemoglobin O2 Delivery Device Oxygen Flow Rate Vent Mode Vent Rate Mechanical Rate PEEP Pressure Support Vent Sodium Potassium Chloride Carbon Dioxide Anion Gap BUN Creatinine Creat Clearance w eGFR POC Glucometer Random Glucose Serum Osmolality Lactic Acid Calcium Phosphorus Magnesium Iron TIBC Iron Saturation Ferritin Total Bilirubin AST ALT Alkaline Phosphatase Ammonia LD Total Creatine Kinase Creatine Kinase Index CK-MB (CK-2) Troponin I C-Reactive Protein Total Protein Albumin Aldolase Vitamin B12 Serum Folate TSH Free T4 Free T3 Cortisol AM Sample Urine Color Urine Appearance Urine pH Urine Protein Urine Glucose (UA) Urine Ketones Urine Blood Urine Nitrite Urine Bilirubin Urine Urobilinogen Stool Occult Blood Opiates Screen Methadone Screen Barbiturate Screen Phencyclidine Screen Ur Amphetamines Screen MDMA (Ecstasy) Screen Benzodiazepines Screen Cocaine Screen U Marijuana (THC) Screen Alcohol, Quantitative Acetone, Qual GONSALO Screen Negative SS-A/Ro Antibody SS-B/La Antibody Sm ([place]) Antibody HOME CONNECT LPN Antibody Double Strand DNA Ab Complement C3 Complement C4 Tot Complement (CH50) Blood Type Antibody Screen 02/28/17 02/28/17 02/28/17 17:45 17:45 17:45 WBC RBC Hgb Hct MCV MCH MCHC RDW Plt Count MPV Total Counted Neutrophils % Neutrophils % (Manual) Band Neuts % (Manual) Lymphocytes % Lymphocytes % (Manual) Monocytes % Monocytes % (Manual) Eosinophils % Eosinophils % (Manual) Basophils % Hypochromia Platelet Estimate Platelet Comment Anisocytosis Microcytosis Target Cells Tear Drop Cells Ovalocytes Fragmented RBCs ESR Haptoglobin PT with INR INR PTT (Actin FS) Puncture Site ABG pH ABG pCO2 at Pt Temp ABG pO2 at Pt Temp ABG HCO3 ABG O2 Sat (Measured) ABG O2 Content ABG Base Excess Roney Test VBG pH POC VBG pCO2 POC VBG pO2 Mixed VBG HCO3 Carboxyhemoglobin Methemoglobin O2 Delivery Device Oxygen Flow Rate Vent Mode Vent Rate Mechanical Rate PEEP Pressure Support Vent Sodium 155 H Potassium 3.9 Chloride 120 H Carbon Dioxide 28 Anion Gap 7 L BUN 28 H D Creatinine 1.0 Creat Clearance w eGFR POC Glucometer Random Glucose 168 H Serum Osmolality Lactic Acid Calcium 7.5 L Phosphorus Magnesium Iron TIBC Iron Saturation Ferritin Total Bilirubin AST ALT Alkaline Phosphatase Ammonia LD Total Creatine Kinase Creatine Kinase Index CK-MB (CK-2) Troponin I C-Reactive Protein Total Protein Albumin Aldolase Vitamin B12 Serum Folate TSH Free T4 Free T3 Cortisol AM Sample Urine Color Urine Appearance Urine pH Urine Protein Urine Glucose (UA) Urine Ketones Urine Blood Urine Nitrite Urine Bilirubin Urine Urobilinogen Stool Occult Blood Opiates Screen Methadone Screen Barbiturate Screen Phencyclidine Screen Ur Amphetamines Screen MDMA (Ecstasy) Screen Benzodiazepines Screen Cocaine Screen U Marijuana (THC) Screen Alcohol, Quantitative Acetone, Qual GONSALO Screen SS-A/Ro Antibody SS-B/La Antibody Sm ([place]) Antibody HOME CONNECT LPN Antibody Double Strand DNA Ab 1 Complement C3 Complement C4 Tot Complement (CH50) > 65 H Blood Type Antibody Screen 02/28/17 03/01/17 03/01/17 18:00 05:10 05:10 WBC 16.2 H RBC 4.16 Hgb 9.6 L D Hct 30.7 L MCV 73.8 L MCH 23.1 L MCHC 31.3 L RDW 22.9 H Plt Count 172 MPV 12.3 H Total Counted Neutrophils % 86.1 H Neutrophils % (Manual) Band Neuts % (Manual) Lymphocytes % 4.9 L Lymphocytes % (Manual) Monocytes % 7.1 Monocytes % (Manual) Eosinophils % 1.8 Eosinophils % (Manual) Basophils % 0.1 Hypochromia Platelet Estimate Adequate Platelet Comment Few large plts Anisocytosis 2+ Microcytosis Target Cells Tear Drop Cells Ovalocytes Fragmented RBCs ESR Haptoglobin PT with INR INR PTT (Actin FS) Puncture Site ABG pH ABG pCO2 at Pt Temp ABG pO2 at Pt Temp ABG HCO3 ABG O2 Sat (Measured) ABG O2 Content ABG Base Excess Roney Test VBG pH POC VBG pCO2 POC VBG pO2 Mixed VBG HCO3 Carboxyhemoglobin Methemoglobin O2 Delivery Device Oxygen Flow Rate Vent Mode Vent Rate Mechanical Rate PEEP Pressure Support Vent Sodium 153 H Potassium 3.5 Chloride 119 H Carbon Dioxide 26 Anion Gap 8 BUN 24 H Creatinine 0.9 Creat Clearance w eGFR > 60 POC Glucometer Random Glucose 182 H Serum Osmolality Lactic Acid Calcium 7.8 L Phosphorus 2.5 Magnesium 3.1 H Iron TIBC Iron Saturation Ferritin Total Bilirubin 0.4 AST 70 H ALT 39 Alkaline Phosphatase 79 Ammonia LD Total Creatine Kinase Creatine Kinase Index CK-MB (CK-2) Troponin I C-Reactive Protein Total Protein 5.3 L Albumin 2.7 L Aldolase Vitamin B12 Serum Folate TSH Free T4 Free T3 Cortisol AM Sample Urine Color Urine Appearance Urine pH Urine Protein Urine Glucose (UA) Urine Ketones Urine Blood Urine Nitrite Urine Bilirubin Urine Urobilinogen Stool Occult Blood Opiates Screen Methadone Screen Barbiturate Screen Phencyclidine Screen Ur Amphetamines Screen MDMA (Ecstasy) Screen Benzodiazepines Screen Cocaine Screen U Marijuana (THC) Screen Alcohol, Quantitative Acetone, Qual GONSALO Screen SS-A/Ro Antibody <0.2 SS-B/La Antibody <0.2 Sm ([place]) Antibody <0.2 HOME CONNECT LPN Antibody 7.3 H Double Strand DNA Ab Complement C3 131 Complement C4 25 Tot Complement (CH50) Blood Type Antibody Screen 03/01/17 03/01/17 03/01/17 07:09 07:50 08:30 WBC RBC Hgb Hct MCV MCH MCHC RDW Plt Count MPV Total Counted Neutrophils % Neutrophils % (Manual) Band Neuts % (Manual) Lymphocytes % Lymphocytes % (Manual) Monocytes % Monocytes % (Manual) Eosinophils % Eosinophils % (Manual) Basophils % Hypochromia Platelet Estimate Platelet Comment Anisocytosis Microcytosis Target Cells Tear Drop Cells Ovalocytes Fragmented RBCs ESR Haptoglobin PT with INR 13.20 H INR 1.20 H PTT (Actin FS) Puncture Site Left radial ABG pH 7.43 ABG pCO2 at Pt Temp 36.7 ABG pO2 at Pt Temp 170.0 H* ABG HCO3 23.8 ABG O2 Sat (Measured) 99.4 H ABG O2 Content 13.8 L ABG Base Excess 0.2 Roney Test Positive VBG pH POC VBG pCO2 POC VBG pO2 Mixed VBG HCO3 Carboxyhemoglobin Methemoglobin O2 Delivery Device Mech vent Oxygen Flow Rate 40% Vent Mode A/c Vent Rate 16 Mechanical Rate Yes PEEP 5.0 Pressure Support Vent 400 Sodium Potassium Chloride Carbon Dioxide Anion Gap BUN Creatinine Creat Clearance w eGFR POC Glucometer Random Glucose Serum Osmolality Lactic Acid Calcium Phosphorus Magnesium Iron TIBC Iron Saturation Ferritin Total Bilirubin AST ALT Alkaline Phosphatase Ammonia LD Total Creatine Kinase Creatine Kinase Index CK-MB (CK-2) Troponin I C-Reactive Protein Total Protein Albumin Aldolase Vitamin B12 Serum Folate TSH Free T4 Free T3 Cortisol AM Sample Urine Color Urine Appearance Urine pH Urine Protein Urine Glucose (UA) Urine Ketones Urine Blood Urine Nitrite Urine Bilirubin Urine Urobilinogen Stool Occult Blood Opiates Screen Positive Methadone Screen Negative Barbiturate Screen Positive Phencyclidine Screen Negative Ur Amphetamines Screen Negative MDMA (Ecstasy) Screen Negative Benzodiazepines Screen Positive Cocaine Screen Negative U Marijuana (THC) Screen Negative Alcohol, Quantitative Acetone, Qual GONSALO Screen SS-A/Ro Antibody SS-B/La Antibody Sm ([place]) Antibody HOME CONNECT LPN Antibody Double Strand DNA Ab Complement C3 Complement C4 Tot Complement (CH50) Blood Type Antibody Screen 03/01/17 03/01/17 03/02/17 21:40 22:32 05:00 WBC 15.6 H RBC 3.79 Hgb 8.8 L Hct 27.9 L MCV 73.5 L MCH 23.1 L MCHC 31.5 L RDW 22.7 H Plt Count 173 MPV 13.1 H Total Counted Neutrophils % 85.2 H Neutrophils % (Manual) Band Neuts % (Manual) Lymphocytes % 5.2 L Lymphocytes % (Manual) Monocytes % 7.4 Monocytes % (Manual) Eosinophils % 2.0 Eosinophils % (Manual) Basophils % 0.2 Hypochromia Platelet Estimate Platelet Comment Anisocytosis Microcytosis Target Cells Tear Drop Cells Ovalocytes Fragmented RBCs ESR Haptoglobin PT with INR INR PTT (Actin FS) Puncture Site ABG pH ABG pCO2 at Pt Temp ABG pO2 at Pt Temp ABG HCO3 ABG O2 Sat (Measured) ABG O2 Content ABG Base Excess Roney Test VBG pH POC VBG pCO2 POC VBG pO2 Mixed VBG HCO3 Carboxyhemoglobin Methemoglobin O2 Delivery Device Oxygen Flow Rate Vent Mode Vent Rate Mechanical Rate PEEP Pressure Support Vent Sodium Potassium Chloride Carbon Dioxide Anion Gap BUN Creatinine Creat Clearance w eGFR POC Glucometer [phone] Random Glucose Serum Osmolality Lactic Acid Calcium Phosphorus Magnesium Iron TIBC Iron Saturation Ferritin Total Bilirubin AST ALT Alkaline Phosphatase Ammonia LD Total Creatine Kinase 1086 H Creatine Kinase Index 0.2 CK-MB (CK-2) 2.281 Troponin I C-Reactive Protein Total Protein Albumin Aldolase Vitamin B12 Serum Folate TSH Free T4 Free T3 Cortisol AM Sample Urine Color Urine Appearance Urine pH Urine Protein Urine Glucose (UA) Urine Ketones Urine Blood Urine Nitrite Urine Bilirubin Urine Urobilinogen Stool Occult Blood Opiates Screen Methadone Screen Barbiturate Screen Phencyclidine Screen Ur Amphetamines Screen MDMA (Ecstasy) Screen Benzodiazepines Screen Cocaine Screen U Marijuana (THC) Screen Alcohol, Quantitative Acetone, Qual GONSALO Screen SS-A/Ro Antibody SS-B/La Antibody Sm ([place]) Antibody HOME CONNECT LPN Antibody Double Strand DNA Ab Complement C3 Complement C4 Tot Complement (CH50) Blood Type Antibody Screen 03/02/17 03/02/17 03/02/17 05:00 05:00 20:00 WBC RBC Hgb Hct MCV MCH MCHC RDW Plt Count MPV Total Counted Neutrophils % Neutrophils % (Manual) Band Neuts % (Manual) Lymphocytes % Lymphocytes % (Manual) Monocytes % Monocytes % (Manual) Eosinophils % Eosinophils % (Manual) Basophils % Hypochromia Platelet Estimate Platelet Comment Anisocytosis Microcytosis Target Cells Tear Drop Cells Ovalocytes Fragmented RBCs ESR Haptoglobin PT with INR INR PTT (Actin FS) Puncture Site ABG pH ABG pCO2 at Pt Temp ABG pO2 at Pt Temp ABG HCO3 ABG O2 Sat (Measured) ABG O2 Content ABG Base Excess Roney Test VBG pH POC VBG pCO2 POC VBG pO2 Mixed VBG HCO3 Carboxyhemoglobin Methemoglobin O2 Delivery Device Oxygen Flow Rate Vent Mode Vent Rate Mechanical Rate PEEP Pressure Support Vent Sodium 148 H 145 Potassium 3.3 L 4.5 D Chloride 114 H 114 H Carbon Dioxide 25 24 Anion Gap 9 7 L BUN 16 D 12 D Creatinine 0.7 D 0.6 Creat Clearance w eGFR > 60 POC Glucometer [phone] Random Glucose 198 H 133 H D Serum Osmolality Lactic Acid Calcium 7.8 L 8.1 L Phosphorus 2.4 L 4.9 D Magnesium 2.3 D Iron TIBC Iron Saturation Ferritin Total Bilirubin 0.3 D AST 75 H ALT 36 Alkaline Phosphatase 73 Ammonia LD Total Creatine Kinase Creatine Kinase Index CK-MB (CK-2) Troponin I C-Reactive Protein Total Protein 4.9 L Albumin 2.4 L Aldolase Vitamin B12 Serum Folate TSH Free T4 Free T3 Cortisol AM Sample Urine Color Urine Appearance Urine pH Urine Protein Urine Glucose (UA) Urine Ketones Urine Blood Urine Nitrite Urine Bilirubin Urine Urobilinogen Stool Occult Blood Opiates Screen Methadone Screen Barbiturate Screen Phencyclidine Screen Ur Amphetamines Screen MDMA (Ecstasy) Screen Benzodiazepines Screen Cocaine Screen U Marijuana (THC) Screen Alcohol, Quantitative Acetone, Qual GONSALO Screen SS-A/Ro Antibody SS-B/La Antibody Sm ([place]) Antibody HOME CONNECT LPN Antibody Double Strand DNA Ab Complement C3 Complement C4 Tot Complement (CH50) Blood Type Antibody Screen 03/03/17 03/03/17 03/03/17 05:15 05:15 05:15 WBC 11.1 H RBC 3.90 Hgb 9.0 L Hct 28.7 L MCV 73.7 L MCH 23.1 L MCHC 31.4 L RDW 22.3 H Plt Count 186 MPV 12.4 H Total Counted Neutrophils % 82.1 Neutrophils % (Manual) Band Neuts % (Manual) Lymphocytes % 6.9 L D Lymphocytes % (Manual) Monocytes % 8.6 Monocytes % (Manual) Eosinophils % 2.1 Eosinophils % (Manual) Basophils % 0.3 Hypochromia Platelet Estimate Adequate Platelet Comment No clumping noted Anisocytosis Microcytosis Target Cells Tear Drop Cells Ovalocytes Fragmented RBCs ESR Haptoglobin PT with INR INR PTT (Actin FS) Puncture Site ABG pH ABG pCO2 at Pt Temp ABG pO2 at Pt Temp ABG HCO3 ABG O2 Sat (Measured) ABG O2 Content ABG Base Excess Roney Test VBG pH POC VBG pCO2 POC VBG pO2 Mixed VBG HCO3 Carboxyhemoglobin Methemoglobin O2 Delivery Device Oxygen Flow Rate Vent Mode Vent Rate Mechanical Rate PEEP Pressure Support Vent Sodium 145 Potassium 4.0 Chloride 112 H Carbon Dioxide 26 Anion Gap 7 L BUN 12 Creatinine 0.7 Creat Clearance w eGFR POC Glucometer Random Glucose 131 H Serum Osmolality Lactic Acid Calcium 7.8 L Phosphorus 2.6 D Magnesium 2.2 Iron 88 TIBC 256 Iron Saturation 34 Ferritin Total Bilirubin AST ALT Alkaline Phosphatase Ammonia LD Total Creatine Kinase Creatine Kinase Index CK-MB (CK-2) Troponin I C-Reactive Protein Total Protein Albumin Aldolase Vitamin B12 Serum Folate 8 TSH Free T4 Free T3 Cortisol AM Sample Urine Color Urine Appearance Urine pH Urine Protein Urine Glucose (UA) Urine Ketones Urine Blood Urine Nitrite Urine Bilirubin Urine Urobilinogen Stool Occult Blood Opiates Screen Methadone Screen Barbiturate Screen Phencyclidine Screen Ur Amphetamines Screen MDMA (Ecstasy) Screen Benzodiazepines Screen Cocaine Screen U Marijuana (THC) Screen Alcohol, Quantitative Acetone, Qual GONSALO Screen SS-A/Ro Antibody SS-B/La Antibody Sm ([place]) Antibody HOME CONNECT LPN Antibody Double Strand DNA Ab Complement C3 Complement C4 Tot Complement (CH50) Blood Type Antibody Screen 03/03/17 03/03/17 03/03/17 05:15 05:15 05:15 WBC RBC Hgb Hct MCV MCH MCHC RDW Plt Count MPV Total Counted Neutrophils % Neutrophils % (Manual) Band Neuts % (Manual) Lymphocytes % Lymphocytes % (Manual) Monocytes % Monocytes % (Manual) Eosinophils % Eosinophils % (Manual) Basophils % Hypochromia Platelet Estimate Platelet Comment Anisocytosis Microcytosis Target Cells Tear Drop Cells Ovalocytes Fragmented RBCs ESR Haptoglobin 194 PT with INR INR PTT (Actin FS) Puncture Site ABG pH ABG pCO2 at Pt Temp ABG pO2 at Pt Temp ABG HCO3 ABG O2 Sat (Measured) ABG O2 Content ABG Base Excess Roney Test VBG pH POC VBG pCO2 POC VBG pO2 Mixed VBG HCO3 Carboxyhemoglobin Methemoglobin O2 Delivery Device Oxygen Flow Rate Vent Mode Vent Rate Mechanical Rate PEEP Pressure Support Vent Sodium Potassium Chloride Carbon Dioxide Anion Gap BUN Creatinine Creat Clearance w eGFR POC Glucometer Random Glucose Serum Osmolality Lactic Acid Calcium Phosphorus Magnesium Iron TIBC Iron Saturation Ferritin 82.355 Total Bilirubin AST ALT Alkaline Phosphatase Ammonia LD Total 361 H Creatine Kinase 1884 H Creatine Kinase Index Cancelled CK-MB (CK-2) Cancelled Troponin I C-Reactive Protein Total Protein Albumin Aldolase Vitamin B12 402 Serum Folate TSH Free T4 Free T3 Cortisol AM Sample Urine Color Urine Appearance Urine pH Urine Protein Urine Glucose (UA) Urine Ketones Urine Blood Urine Nitrite Urine Bilirubin Urine Urobilinogen Stool Occult Blood Opiates Screen Methadone Screen Barbiturate Screen Phencyclidine Screen Ur Amphetamines Screen MDMA (Ecstasy) Screen Benzodiazepines Screen Cocaine Screen U Marijuana (THC) Screen Alcohol, Quantitative Acetone, Qual GONSALO Screen SS-A/Ro Antibody SS-B/La Antibody Sm ([place]) Antibody HOME CONNECT LPN Antibody Double Strand DNA Ab Complement C3 Complement C4 Tot Complement (CH50) Blood Type Antibody Screen 03/03/17 03/03/17 03/04/17 05:46 18:00 05:15 WBC 8.2 RBC 3.49 L Hgb 8.3 L Hct 25.5 L MCV 73.2 L MCH 23.8 L MCHC 32.5 RDW 22.1 H Plt Count 181 MPV 12.9 H Total Counted Neutrophils % 72.5 Neutrophils % (Manual) Band Neuts % (Manual) Lymphocytes % 11.6 D Lymphocytes % (Manual) Monocytes % 12.8 H Monocytes % (Manual) Eosinophils % 3.0 Eosinophils % (Manual) Basophils % 0.1 Hypochromia Platelet Estimate Adequate Platelet Comment No clumping noted Anisocytosis Microcytosis Target Cells Tear Drop Cells Ovalocytes Fragmented RBCs ESR Haptoglobin PT with INR INR PTT (Actin FS) Puncture Site ABG pH ABG pCO2 at Pt Temp ABG pO2 at Pt Temp ABG HCO3 ABG O2 Sat (Measured) ABG O2 Content ABG Base Excess Roney Test VBG pH POC VBG pCO2 POC VBG pO2 Mixed VBG HCO3 Carboxyhemoglobin Methemoglobin O2 Delivery Device Oxygen Flow Rate Vent Mode Vent Rate Mechanical Rate PEEP Pressure Support Vent Sodium Potassium Chloride Carbon Dioxide Anion Gap BUN Creatinine Creat Clearance w eGFR POC Glucometer 158.65424 Random Glucose Serum Osmolality Lactic Acid Calcium Phosphorus Magnesium Iron TIBC Iron Saturation Ferritin Total Bilirubin AST ALT Alkaline Phosphatase Ammonia LD Total Creatine Kinase Creatine Kinase Index CK-MB (CK-2) Troponin I C-Reactive Protein Total Protein Albumin Aldolase Vitamin B12 Serum Folate TSH Free T4 Free T3 Cortisol AM Sample Urine Color Urine Appearance Urine pH Urine Protein Urine Glucose (UA) Urine Ketones Urine Blood Urine Nitrite Urine Bilirubin Urine Urobilinogen Stool Occult Blood Positive Opiates Screen Methadone Screen Barbiturate Screen Phencyclidine Screen Ur Amphetamines Screen MDMA (Ecstasy) Screen Benzodiazepines Screen Cocaine Screen U Marijuana (THC) Screen Alcohol, Quantitative Acetone, Qual GONSALO Screen SS-A/Ro Antibody SS-B/La Antibody Sm ([place]) Antibody HOME CONNECT LPN Antibody Double Strand DNA Ab Complement C3 Complement C4 Tot Complement (CH50) Blood Type Antibody Screen 03/04/17 03/04/17 03/04/17 05:15 05:15 10:05 WBC RBC Hgb Hct MCV MCH MCHC RDW Plt Count MPV Total Counted Neutrophils % Neutrophils % (Manual) Band Neuts % (Manual) Lymphocytes % Lymphocytes % (Manual) Monocytes % Monocytes % (Manual) Eosinophils % Eosinophils % (Manual) Basophils % Hypochromia Platelet Estimate Platelet Comment Anisocytosis Microcytosis Target Cells Tear Drop Cells Ovalocytes Fragmented RBCs ESR Haptoglobin PT with INR INR PTT (Actin FS) Puncture Site ABG pH ABG pCO2 at Pt Temp ABG pO2 at Pt Temp ABG HCO3 ABG O2 Sat (Measured) ABG O2 Content ABG Base Excess Roney Test VBG pH POC VBG pCO2 POC VBG pO2 Mixed VBG HCO3 Carboxyhemoglobin Methemoglobin O2 Delivery Device Oxygen Flow Rate Vent Mode Vent Rate Mechanical Rate PEEP Pressure Support Vent Sodium 144 Potassium 3.7 Chloride 112 H Carbon Dioxide 27 Anion Gap 5 L BUN 8 D Creatinine 0.6 Creat Clearance w eGFR > 60 POC Glucometer Random Glucose 144 H Serum Osmolality Lactic Acid Calcium 7.6 L Phosphorus 2.2 L Magnesium 2.0 Iron TIBC Iron Saturation Ferritin Total Bilirubin 0.3 AST 137 H D ALT 50 D Alkaline Phosphatase 63 Ammonia LD Total Creatine Kinase Creatine Kinase Index CK-MB (CK-2) Troponin I C-Reactive Protein 6.4 H Total Protein 4.7 L Albumin 2.2 L Aldolase 11.4 H Vitamin B12 Serum Folate TSH 1.13 D Free T4 Free T3 Cortisol AM Sample Urine Color Urine Appearance Urine pH Urine Protein Urine Glucose (UA) Urine Ketones Urine Blood Urine Nitrite Urine Bilirubin Urine Urobilinogen Stool Occult Blood Opiates Screen Methadone Screen Barbiturate Screen Phencyclidine Screen Ur Amphetamines Screen MDMA (Ecstasy) Screen Benzodiazepines Screen Cocaine Screen U Marijuana (THC) Screen Alcohol, Quantitative Acetone, Qual GONSALO Screen SS-A/Ro Antibody SS-B/La Antibody Sm ([place]) Antibody HOME CONNECT LPN Antibody Double Strand DNA Ab Complement C3 Complement C4 Tot Complement (CH50) Blood Type Antibody Screen 03/05/17 03/05/17 03/06/17 05:00 05:00 05:28 WBC 6.9 5.9 RBC 3.67 3.85 Hgb 8.3 L 8.9 L Hct 27.0 L 28.1 L MCV 73.5 L 73.0 L MCH 22.6 L 23.0 L MCHC 30.7 L 31.5 L RDW 22.1 H 22.1 H Plt Count 133 L D 205 D MPV 10.0 D 11.7 H D Total Counted Neutrophils % 63.5 Neutrophils % (Manual) Band Neuts % (Manual) Lymphocytes % 17.7 D Lymphocytes % (Manual) Monocytes % 15.0 H Monocytes % (Manual) Eosinophils % 3.5 Eosinophils % (Manual) Basophils % 0.3 Hypochromia 1+ Platelet Estimate Slt decreased Platelet Comment Anisocytosis 2+ Microcytosis 1+ Target Cells Tear Drop Cells Ovalocytes Fragmented RBCs ESR Haptoglobin PT with INR INR PTT (Actin FS) Puncture Site ABG pH ABG pCO2 at Pt Temp ABG pO2 at Pt Temp ABG HCO3 ABG O2 Sat (Measured) ABG O2 Content ABG Base Excess Roney Test VBG pH POC VBG pCO2 POC VBG pO2 Mixed VBG HCO3 Carboxyhemoglobin Methemoglobin O2 Delivery Device Oxygen Flow Rate Vent Mode Vent Rate Mechanical Rate PEEP Pressure Support Vent Sodium 144 Potassium 3.1 L Chloride 109 H Carbon Dioxide 27 Anion Gap 8 BUN 7 Creatinine 0.6 Creat Clearance w eGFR > 60 POC Glucometer Random Glucose 166 H Serum Osmolality Lactic Acid Calcium 7.9 L Phosphorus 1.9 L Magnesium 1.9 Iron TIBC Iron Saturation Ferritin Total Bilirubin 0.2 D AST 150 H ALT 70 D Alkaline Phosphatase 63 Ammonia LD Total Creatine Kinase Creatine Kinase Index CK-MB (CK-2) Troponin I C-Reactive Protein Total Protein 4.8 L Albumin 2.5 L Aldolase Vitamin B12 Serum Folate TSH Free T4 Free T3 Cortisol AM Sample Urine Color Urine Appearance Urine pH Urine Protein Urine Glucose (UA) Urine Ketones Urine Blood Urine Nitrite Urine Bilirubin Urine Urobilinogen Stool Occult Blood Opiates Screen Methadone Screen Barbiturate Screen Phencyclidine Screen Ur Amphetamines Screen MDMA (Ecstasy) Screen Benzodiazepines Screen Cocaine Screen U Marijuana (THC) Screen Alcohol, Quantitative Acetone, Qual GONSALO Screen SS-A/Ro Antibody SS-B/La Antibody Sm ([place]) Antibody HOME CONNECT LPN Antibody Double Strand DNA Ab Complement C3 Complement C4 Tot Complement (CH50) Blood Type Antibody Screen 03/06/17 03/06/17 03/12/17 05:28 19:00 05:35 WBC 4.3 RBC 3.78 Hgb 9.0 L Hct 28.3 L MCV 74.9 L MCH 23.8 L MCHC 31.9 L RDW 26.9 H Plt Count 267 D MPV 10.2 D Total Counted Neutrophils % 57.0 Neutrophils % (Manual) Band Neuts % (Manual) Lymphocytes % 24.1 D Lymphocytes % (Manual) Monocytes % 15.5 H Monocytes % (Manual) Eosinophils % 2.9 Eosinophils % (Manual) Basophils % 0.5 Hypochromia 1+ Platelet Estimate Platelet Comment Anisocytosis 2+ Microcytosis 2+ Target Cells Tear Drop Cells 4+ Ovalocytes 2+ Fragmented RBCs 2+ ESR Haptoglobin PT with INR INR PTT (Actin FS) Puncture Site ABG pH ABG pCO2 at Pt Temp ABG pO2 at Pt Temp ABG HCO3 ABG O2 Sat (Measured) ABG O2 Content ABG Base Excess Roney Test VBG pH POC VBG pCO2 POC VBG pO2 Mixed VBG HCO3 Carboxyhemoglobin Methemoglobin O2 Delivery Device Oxygen Flow Rate Vent Mode Vent Rate Mechanical Rate PEEP Pressure Support Vent Sodium 145 Potassium 3.3 L Chloride 109 H Carbon Dioxide 28 Anion Gap 8 BUN 5 L D Creatinine 0.5 L Creat Clearance w eGFR > 60 POC Glucometer Random Glucose 96 D Serum Osmolality Lactic Acid Calcium 8.6 Phosphorus 3.0 D Magnesium 1.8 Iron TIBC Iron Saturation Ferritin Total Bilirubin 0.5 D AST 149 H ALT 95 H D Alkaline Phosphatase 64 Ammonia LD Total Creatine Kinase 735 H Creatine Kinase Index 0.3 CK-MB (CK-2) 2.322 Troponin I C-Reactive Protein Total Protein 5.2 L Albumin 2.7 L Aldolase Vitamin B12 Serum Folate TSH Free T4 Free T3 Cortisol AM Sample Urine Color Urine Appearance Urine pH Urine Protein Urine Glucose (UA) Urine Ketones Urine Blood Urine Nitrite Urine Bilirubin Urine Urobilinogen Stool Occult Blood Opiates Screen Methadone Screen Barbiturate Screen Phencyclidine Screen Ur Amphetamines Screen MDMA (Ecstasy) Screen Benzodiazepines Screen Cocaine Screen U Marijuana (THC) Screen Alcohol, Quantitative Acetone, Qual GONSALO Screen SS-A/Ro Antibody SS-B/La Antibody Sm ([place]) Antibody HOME CONNECT LPN Antibody Double Strand DNA Ab Complement C3 Complement C4 Tot Complement (CH50) Blood Type Antibody Screen 03/12/17 03/12/17 03/13/17 05:35 06:00 06:00 WBC 4.9 RBC 3.90 Hgb 9.3 L Hct 29.4 L MCV 75.3 L MCH 23.9 L MCHC 31.7 L RDW 26.1 H Plt Count 247 MPV 9.7 Total Counted Neutrophils % 58.7 Neutrophils % (Manual) Band Neuts % (Manual) Lymphocytes % 23.5 Lymphocytes % (Manual) Monocytes % 15.1 H Monocytes % (Manual) Eosinophils % 2.2 Eosinophils % (Manual) Basophils % 0.5 Hypochromia Platelet Estimate Platelet Comment Anisocytosis Microcytosis Target Cells Tear Drop Cells Ovalocytes Fragmented RBCs ESR Haptoglobin PT with INR INR PTT (Actin FS) Puncture Site ABG pH ABG pCO2 at Pt Temp ABG pO2 at Pt Temp ABG HCO3 ABG O2 Sat (Measured) ABG O2 Content ABG Base Excess Roney Test VBG pH POC VBG pCO2 POC VBG pO2 Mixed VBG HCO3 Carboxyhemoglobin Methemoglobin O2 Delivery Device Oxygen Flow Rate Vent Mode Vent Rate Mechanical Rate PEEP Pressure Support Vent Sodium 142 Potassium 4.7 D Chloride 106 Carbon Dioxide 27 Anion Gap 9 BUN 11 D Creatinine 0.6 Creat Clearance w eGFR > 60 POC Glucometer Random Glucose 104 Serum Osmolality Lactic Acid Calcium 8.9 Phosphorus Magnesium Iron TIBC Iron Saturation Ferritin Total Bilirubin 0.4 AST 27 D ALT 51 D Alkaline Phosphatase 52 Ammonia LD Total Creatine Kinase Creatine Kinase Index CK-MB (CK-2) 1.059 Troponin I C-Reactive Protein Total Protein 5.5 L Albumin 2.9 L Aldolase Vitamin B12 Serum Folate TSH Free T4 Free T3 Cortisol AM Sample Urine Color Urine Appearance Urine pH Urine Protein Urine Glucose (UA) Urine Ketones Urine Blood Urine Nitrite Urine Bilirubin Urine Urobilinogen Stool Occult Blood Opiates Screen Methadone Screen Barbiturate Screen Phencyclidine Screen Ur Amphetamines Screen MDMA (Ecstasy) Screen Benzodiazepines Screen Cocaine Screen U Marijuana (THC) Screen Alcohol, Quantitative Acetone, Qual GONSALO Screen SS-A/Ro Antibody SS-B/La Antibody Sm ([place]) Antibody HOME CONNECT LPN Antibody Double Strand DNA Ab Complement C3 Complement C4 Tot Complement (CH50) Blood Type Antibody Screen Laboratory Last Values WBC 4.9 K/mm3 (4.0-10.0) 03/13/17 06:00 RBC 3.90 M/mm3 (3.60-5.2) 03/13/17 06:00 Hgb 9.3 GM/dL (10.7-15.3) L 03/13/17 06:00 Hct 29.4 % (32.4-45.2) L 03/13/17 06:00 MCV 75.3 fl (80-96) L 03/13/17 06:00 MCH 23.9 pg (25.7-33.7) L 03/13/17 06:00 MCHC 31.7 g/dl (32.0-36.0) L 03/13/17 06:00 RDW 26.1 % (11.6-15.6) H 03/13/17 06:00 Plt Count 247 K/MM3 (134-434) 03/13/17 06:00 MPV 9.7 fl (7.5-11.1) 03/13/17 06:00 Total Counted 100 02/26/17 13:25 Neutrophils % 58.7 % (42.8-82.8) 03/13/17 06:00 Neutrophils % (Manual) 85 % (42.8-82.8) H 02/26/17 13:25 Band Neuts % (Manual) 2 % (0-10) 02/26/17 13:25 Lymphocytes % 23.5 % (8-40) 03/13/17 06:00 Lymphocytes % (Manual) 8 % (8-40) 02/26/17 13:25 Monocytes % 15.1 % (3.8-10.2) H 03/13/17 06:00 Monocytes % (Manual) 5 % (3.8-10.2) 02/26/17 13:25 Eosinophils % 2.2 % (0-4.5) 03/13/17 06:00 Eosinophils % (Manual) 0 % (0-4.5) 02/26/17 13:25 Basophils % 0.5 % (0-2.0) 03/13/17 06:00 Hypochromia 1+ 03/12/17 05:35 Platelet Estimate Slt decreased (NORMAL) 03/05/17 05:00 Platelet Comment No clumping noted 03/04/17 05:15 Anisocytosis 2+ 03/12/17 05:35 Microcytosis 2+ 03/12/17 05:35 Target Cells 1+ 02/26/17 13:25 Tear Drop Cells 4+ 03/12/17 05:35 Ovalocytes 2+ 03/12/17 05:35 Fragmented RBCs 2+ 03/12/17 05:35 ESR 39 mm/hr (0-20) H 02/28/17 10:57 Haptoglobin 194 mg/dL (34-200) 03/03/17 05:15 PT with INR 13.20 SEC (9.98-11.88) H 03/01/17 08:30 INR 1.20 (0.82-1.09) H 03/01/17 08:30 PTT (Actin FS) 28.5 SECONDS (26.9-34.4) 02/26/17 13:25 Puncture Site Left radial 03/01/17 07:09 ABG pH 7.43 (7.35-7.45) 03/01/17 07:09 ABG pCO2 at Pt Temp 36.7 mmHg (35-45) 03/01/17 07:09 ABG pO2 at Pt Temp 170.0 mmHg (80-100) H* 03/01/17 07:09 ABG HCO3 23.8 meq/L (22-26) 03/01/17 07:09 ABG O2 Sat (Measured) 99.4 % (90-98.9) H 03/01/17 07:09 ABG O2 Content 13.8 % vol (15-22) L 03/01/17 07:09 ABG Base Excess 0.2 meq/l (-2-2) 03/01/17 07:09 Roney Test Positive 03/01/17 07:09 VBG pH 7.35 (7.32-7.42) 02/26/17 13:40 POC VBG pCO2 48.7 mmHg (38-52) 02/26/17 13:40 POC VBG pO2 51.6 mmHg (28-48) H 02/26/17 13:40 Mixed VBG HCO3 26.4 meq/L (19-25) H 02/26/17 13:40 Carboxyhemoglobin 1.0 gm% (0.5-2.0) 02/26/17 13:48 Methemoglobin 0.6 % (0.4-1.5) 02/26/17 13:48 O2 Delivery Device Mech vent 03/01/17 07:09 Oxygen Flow Rate 40% 03/01/17 07:09 Vent Mode A/c 03/01/17 07:09 Vent Rate 16 03/01/17 07:09 Mechanical Rate Yes 03/01/17 07:09 PEEP 5.0 cmH2O 03/01/17 07:09 Pressure Support Vent 400 03/01/17 07:09 Sodium 142 mmol/L (136-145) 03/12/17 05:35 Potassium 4.7 mmol/L (3.5-5.1) D 03/12/17 05:35 Chloride 106 mmol/L (98-107) 03/12/17 05:35 Carbon Dioxide 27 mmol/L (21-32) 03/12/17 05:35 Anion Gap 9 (8-16) 03/12/17 05:35 BUN 11 mg/dL (7-18) D 03/12/17 05:35 Creatinine 0.6 mg/dL (0.55-1.02) 03/12/17 05:35 Creat Clearance w eGFR > 60 (>60) 03/12/17 05:35 POC Glucometer 158.18395 UNITS (()) 03/03/17 05:46 Random Glucose 104 mg/dL (74-106) 03/12/17 05:35 Serum Osmolality 366 mosm/kg (278-305) H 02/26/17 13:40 Lactic Acid 1.7 mmol/L (0.4-2.0) 02/26/17 15:16 Calcium 8.9 mg/dL (8.5-10.1) 03/12/17 05:35 Phosphorus 3.0 mg/dL (2.5-4.9) D 03/06/17 05:28 Magnesium 1.8 mg/dL (1.8-2.4) 03/06/17 05:28 Iron 88 ug/dL (27-159) 03/03/17 05:15 TIBC 256 ug/dL (250-450) 03/03/17 05:15 Iron Saturation 34 % (15-55) 03/03/17 05:15 Ferritin 82.355 ng/ml (6.9-282.5) 03/03/17 05:15 Total Bilirubin 0.4 mg/dL (0.2-1.0) 03/12/17 05:35 AST 27 U/L (15-37) D 03/12/17 05:35 ALT 51 U/L (12-78) D 03/12/17 05:35 Alkaline Phosphatase 52 U/L (45-117) 03/12/17 05:35 Ammonia 68.55 umol/L (11-32) H 02/26/17 13:38 LD Total 361 U/L (84-246) H 03/03/17 05:15 Creatine Kinase 735 IU/L (26-192) H 03/06/17 19:00 Creatine Kinase Index 0.3 % (0.0-5.0) 03/06/17 19:00 CK-MB (CK-2) 1.059 ng/mL (0.5-3.6) 03/12/17 06:00 Troponin I 0.02 ng/ml (0.00-0.05) 02/26/17 13:25 C-Reactive Protein 6.4 MG/DL (0.00-0.3) H 03/04/17 10:05 Total Protein 5.5 g/dl (6.4-8.2) L 03/12/17 05:35 Albumin 2.9 g/dl (3.4-5.0) L 03/12/17 05:35 Aldolase 11.4 U/L (3.3-10.3) H 03/04/17 05:15 Vitamin B12 402 pg/ml (180-914) 03/03/17 05:15 Serum Folate 8 ng/ml (3.1-17.5) 03/03/17 05:15 TSH 1.13 uIU/ml (0.358-3.74) D 03/04/17 05:15 Free T4 0.87 ng/dl (0.76-1.46) 02/28/17 05:15 Free T3 1.9 pg/ml (2.0-4.4) L 02/28/17 05:15 Cortisol AM Sample 28.3 ug/dL (.) 02/28/17 05:15 Urine Color Yellow 02/26/17 13:40 Urine Appearance Clear 02/26/17 13:40 Urine pH 5.0 (5.0-8.0) 02/26/17 13:40 Urine Protein Negative (NEGATIVE) 02/26/17 13:40 Urine Glucose (UA) Negative (NEGATIVE) 02/26/17 13:40 Urine Ketones Negative (NEGATIVE) 02/26/17 13:40 Urine Blood Negative (NEGATIVE) 02/26/17 13:40 Urine Nitrite Negative (NEGATIVE) 02/26/17 13:40 Urine Bilirubin Negative (NEGATIVE) 02/26/17 13:40 Urine Urobilinogen Negative mg/dL (0.2-1.0) 02/26/17 13:40 Stool Occult Blood Positive (NEGATIVE) 03/03/17 18:00 Opiates Screen Positive ng/ml (TQFGIX=877) 03/01/17 07:50 Methadone Screen Negative ng/ml (EMQYFO=729) 03/01/17 07:50 Barbiturate Screen Positive ng/ml (YAMPAA=667) 03/01/17 07:50 Phencyclidine Screen Negative ng/ml (CUTOFF=25) 03/01/17 07:50 Ur Amphetamines Screen Negative ng/ml (PXVERW=264) 03/01/17 07:50 MDMA (Ecstasy) Screen Negative ng/ml (QRYBLX=632) 03/01/17 07:50 Benzodiazepines Screen Positive ng/ml (BXBDKE=776) 03/01/17 07:50 Cocaine Screen Negative ng/ml (WIGLOT=928) 03/01/17 07:50 U Marijuana (THC) Screen Negative ng/ml (CUTOFF=50) 03/01/17 07:50 Alcohol, Quantitative < 5.0 mg/dl (0-5) 02/26/17 13:40 Acetone, Qual Trace (NEGATIVE) H 02/26/17 13:40 GONSALO Screen Negative (.) 02/28/17 10:57 SS-A/Ro Antibody <0.2 AI (0.0-0.9) 02/28/17 18:00 SS-B/La Antibody <0.2 AI (0.0-0.9) 02/28/17 18:00 Sm ([place]) Antibody <0.2 AI (0.0-0.9) 02/28/17 18:00 HOME CONNECT LPN Antibody 7.3 AI (0.0-0.9) H 02/28/17 18:00 Double Strand DNA Ab 1 IU/mL (0-9) 02/28/17 17:45 Complement C3 131 mg/dL (82-167) 02/28/17 18:00 Complement C4 25 mg/dL (14-44) 02/28/17 18:00 Tot Complement (CH50) > 65 U/mL (42-60) H 02/28/17 17:45 Blood Type O POSITIVE 02/26/17 13:25 Antibody Screen Negative 02/26/17 13:25 03/15/17 08:53 a and ox3, NAD, moving all extreities, no tremor, no sweats, tapping left foot. sluggish response to questions, Assessment: 03/15/17 08:51 chornic apin 2/2 sle - patient reports not responsive to tyleno or NSAIS, needs ATC medication iv if NPO now for surgery, insomnia responds to valium 10mg qHS Plan: This patient is not in need for detoxificatio for addiction would call physicians caring for her in past. Please call if further follow up needed. Michael Huddleston MD [phone]
[2017-03-15] MEDS: ACETAMINOPHEN 325 MG TABLET (FP) PO PRN (08:59)
[2017-03-15] MEDS: risperiDONE 1 MG TABLET (FP) PO SCH ×2 (09:50→21:20)
[2017-03-15] MEDS: PANTOPRAZOLE 40 MG TABLET (FP) PO SCH ×2 (09:50→21:20)
[2017-03-15] MEDS: predniSONE 10 MG TABLET (UD) PO SCH (09:50)
[2017-03-15] MEDS: POTASSIUM CHLORIDE TABS 20 MEQ TABLET.ER (FP) PO SCH (09:50)
--- NOTE | 2017-03-15 10:04 | PN ---
Progress Note (short form) - Note Progress Note: Neurology History of Present Illness 46 year old female presented to ER completely unresponsive, [place] coma scale of 3, who was "found down" possibly for several days and last known well two days prior to admission. Found in her own urine and feces without explanation of why. Concern for airway protection and ER intubated and put on mechanical ventilation in the ER. CT head completed and did not show acute changes. UTox positive for benzo, barbiturates, and opiods. Also with WBC of 18. Concern for drug overdose, was in ICU in close monitoring, eventually extubated and downgraded to telemetry. Has been more awake, alert, responsive, tracking examiner, conversive. Able to tell me she is in the hospital, the date, name of President. CT head repeated and did not show acute changes. EMG showed critical illness myopathy which appears to have improved. She is moving extremities over head without difficulty now, planned for debridement by vascular. Active Medications Acetaminophen (Tylenol -) 650 mg PO Q6H PRN PRN Reason: FEVER OR PAIN Last Admin: 03/15/17 08:59 Dose: 650 mg Bacitracin (Bacitracin -) 1 applic TP BID [facility] Last Admin: 03/14/17 21:32 Dose: 1 applic Collagenase (Santyl -) 1 applic TP DAILY [facility] Last Admin: 03/14/17 09:59 Dose: 1 applic Diazepam (Valium -) 10 mg PO HS [facility] Last Admin: 03/14/17 21:31 Dose: 10 mg Docusate Sodium (Colace -) 100 mg PO HS [facility] Last Admin: 03/14/17 21:31 Dose: 100 mg Morphine Sulfate (Msir -) 15 mg PO Q4H PRN PRN Reason: PAIN Last Admin: 03/15/17 00:48 Dose: 15 mg Pantoprazole Sodium (Protonix -) 40 mg PO BID [facility] Last Admin: 03/14/17 21:31 Dose: 40 mg Potassium Chloride (K-Dur -) 40 meq PO DAILY [facility] Last Admin: 03/14/17 09:57 Dose: 40 meq Potassium Phos/Sodium Phos (Phos-Nak Packet -) 1 packet PO TID [facility] Last Admin: 03/15/17 05:39 Dose: Not Given Prednisone (Deltasone -) 10 mg PO DAILY [facility] Last Admin: 03/14/17 09:58 Dose: 10 mg Risperidone (Risperdal -) 1 mg PO BID [facility] Last Admin: 03/14/17 21:31 Dose: 1 mg Zolpidem Tartrate (Ambien -) 5 mg PO HS PRN Last Admin: 03/14/17 23:11 Dose: 5 mg *Physical Exam Vital Signs Temperature 99 F 03/15/17 06:00 Pulse Rate 92 H 03/15/17 06:00 Respiratory Rate 20 03/15/17 06:00 Blood Pressure 121/73 03/15/17 06:00 O2 Sat by Pulse Oximetry (%) 99 03/14/17 21:00 Awake, tracking examiner, verbal and cooperative, conversive, maintains attention Squeezing hand to command, raising arms or legs to command, moving b/l UE with full range of motion No hemiparesis Intact to tactile stimulation Finger to nose intact Lungs sounds mechanical RRR Abdomen soft Gait deferred CBCD WBC 4.9 K/mm3 (4.0-10.0) 03/13/17 06:00 RBC 3.90 M/mm3 (3.60-5.2) 03/13/17 06:00 Hgb 9.3 GM/dL (10.7-15.3) L 03/13/17 06:00 Hct 29.4 % (32.4-45.2) L 03/13/17 06:00 MCV 75.3 fl (80-96) L 03/13/17 06:00 MCHC 31.7 g/dl (32.0-36.0) L 03/13/17 06:00 RDW 26.1 % (11.6-15.6) H 03/13/17 06:00 Plt Count 247 K/MM3 (134-434) 03/13/17 06:00 MPV 9.7 fl (7.5-11.1) 03/13/17 06:00 CMP Sodium 142 mmol/L (136-145) 03/12/17 05:35 Potassium 4.7 mmol/L (3.5-5.1) D 03/12/17 05:35 Chloride 106 mmol/L (98-107) 03/12/17 05:35 Carbon Dioxide 27 mmol/L (21-32) 03/12/17 05:35 Anion Gap 9 (8-16) 03/12/17 05:35 BUN 11 mg/dL (7-18) D 03/12/17 05:35 Creatinine 0.6 mg/dL (0.55-1.02) 03/12/17 05:35 Creat Clearance w eGFR > 60 (>60) 03/12/17 05:35 Calcium 8.9 mg/dL (8.5-10.1) 03/12/17 05:35 Total Bilirubin 0.4 mg/dL (0.2-1.0) 03/12/17 05:35 AST 27 U/L (15-37) D 03/12/17 05:35 ALT 51 U/L (12-78) D 03/12/17 05:35 Alkaline Phosphatase 52 U/L (45-117) 03/12/17 05:35 Total Protein 5.5 g/dl (6.4-8.2) L 03/12/17 05:35 Albumin 2.9 g/dl (3.4-5.0) L 03/12/17 05:35 CT head repeat reviewed Plan: 46 year old female presented to ER completely unresponsive, [place] coma scale of 3, who was "found down" possibly for several days and last known well two days ago. Found in her own urine and feces without explanation of why. Concern for airway protection and ER intubated and put on mechanical ventilation, under close observation in the ICU. CT head completed and did not show acute changes. Repeat CT head without acute changes UTox positive for benzo, barbiturates, and opiods. Likely drug overdose Hydration as needed Weaned from mechanical vent, comfortable on room air No evidence of seizures Mental status improved, possibly at baseline Critical illness myopathy on EMG, strenght improved Started on Risperdal 1mg bid Vascular for debridement customer success manager working on placement
--- NOTE | 2017-03-15 10:34 | PN ---
Progress Note, Physician History of Present Illness: Planned for left upper back and left hip wound debridement today. - Current Medication List Current Medications: Active Medications Acetaminophen (Tylenol -) 650 mg PO Q6H PRN PRN Reason: FEVER OR PAIN Last Admin: 03/15/17 08:59 Dose: 650 mg Bacitracin (Bacitracin -) 1 applic TP BID [facility] Last Admin: 03/14/17 21:32 Dose: 1 applic Collagenase (Santyl -) 1 applic TP DAILY [facility] Last Admin: 03/14/17 09:59 Dose: 1 applic Diazepam (Valium -) 10 mg PO HS [facility]PL[facility] Last Admin: 03/14/17 21:31 Dose: 10 mg Docusate Sodium (Colace -) 100 mg PO HS [facility] Last Admin: 03/14/17 21:31 Dose: 100 mg Morphine Sulfate (Msir -) 15 mg PO Q4H PRN PRN Reason: PAIN Last Admin: 03/15/17 00:48 Dose: 15 mg Pantoprazole Sodium (Protonix -) 40 mg PO BID [facility] Last Admin: 03/14/17 21:31 Dose: 40 mg Potassium Chloride (K-Dur -) 40 meq PO DAILY [facility] Last Admin: 03/14/17 09:57 Dose: 40 meq Potassium Phos/Sodium Phos (Phos-Nak Packet -) 1 packet PO TID [facility] Last Admin: 03/15/17 05:39 Dose: Not Given Prednisone (Deltasone -) 10 mg PO DAILY [facility] Last Admin: 03/14/17 09:58 Dose: 10 mg Risperidone (Risperdal -) 1 mg PO BID [facility] Last Admin: 03/14/17 21:31 Dose: 1 mg Zolpidem Tartrate (Ambien -) 5 mg PO HS PRN Last Admin: 03/14/17 23:11 Dose: 5 mg - Objective Vital Signs: Vital Signs Temperature 98.7 F 03/15/17 10:00 Pulse Rate 96 H 03/15/17 10:00 Respiratory Rate 20 03/15/17 10:00 Blood Pressure 108/65 03/15/17 10:00 O2 Sat by Pulse Oximetry (%) 99 03/15/17 09:00 Constitutional: Yes: No Distress, Calm, Thin Neck: Yes: Supple Cardiovascular: Yes: Regular Rate and Rhythm Respiratory: Yes: Regular, CTA Bilaterally Gastrointestinal: Yes: Normal Bowel Sounds, Soft Edema: No Labs: CBC, BMP 03/13/17 06:00 03/12/17 05:35 INR, PTT INR 1.20 (0.82-1.09) H 03/01/17 08:30 Problem List - Problems (1) Overdose Code(s): T50.901A - POISONING BY UNSP DRUG/MEDS/BIOL SUBST, ACCIDENTAL, INIT Qualifiers: Encounter type: initial encounter Injury intent: undetermined intent Qualified Code(s): T50.904A - Poisoning by unspecified drugs, medicaments and biological substances, undetermined, initial encounter; T50.904A - Poisoning by unspecified drugs, medicaments and biological substances, undetermined, initial encounter (2) Respiratory failure Code(s): J96.90 - RESPIRATORY FAILURE, UNSP, UNSP W HYPOXIA OR HYPERCAPNIA Qualifiers: Chronicity: acute (3) Aspiration pneumonia Code(s): J69.0 - PNEUMONITIS DUE TO INHALATION OF FOOD AND VOMIT Qualifiers: Aspiration pneumonia type: due to vomit Lung location: unspecified part of lung (4) Lupus (systemic lupus erythematosus) Code(s): M32.9 - SYSTEMIC LUPUS ERYTHEMATOSUS, UNSPECIFIED (5) Anemia Code(s): D64.9 - ANEMIA, UNSPECIFIED Qualifiers: Anemia type: unspecified type Qualified Code(s): D64.9 - Anemia, unspecified; D64.9 - Anemia, unspecified (6) Skin ulcer Code(s): L98.499 - NON-PRESSURE CHRONIC ULCER OF SKIN OF SITES W UNSP SEVERITY Qualifiers: Non-pressure ulcer stage: limited to breakdown of skin Qualified Code(s): L98.491 - Non-pressure chronic ulcer of skin of other sites limited to breakdown of skin; L98.491 - Non-pressure chronic ulcer of skin of other sites limited to breakdown of skin; L98.491 - Non-pressure chronic ulcer of skin of other sites limited to breakdown of skin; L98.491 - Non-pressure chronic ulcer of skin of other sites limited to breakdown of skin Assessment/Plan 1. Post acute respiratory failure, persistent toxic metabolic encephalopathy, possible drug overdose 2. Sepsis syndrome, resolved 3. History of Lupus 4. Acute on chronic renal insufficiency, pre-renal azotemia, resolved 5. Anemia 6. Critical illness myopathy on EMG 7. Left upper back and hip ulcer PLAN: 1. Planned for wound debridement today 2. DVT prophylaxis, steroids with GI prophylaxis, PT->rehab 3. Neurological input appreciated
[2017-03-15] MEDS ORDERED: ONDANSETRON 4 MG/2 ML VIAL IVPUSH PRN ×3 (11:38→13:13)
[2017-03-15] MEDS ORDERED: PROMETHAZINE HCL 25 MG/1 ML VIAL IVPUSH PRN ×3 (11:38→13:13)
[2017-03-15] MEDS ORDERED: LACTATED RINGERS SOLUTION 1,000 ML IV SCH ×2 (11:45→13:13)
[2017-03-15] MEDS ORDERED: MIDAZOLAM HCL 2 MG/2 ML SINGLE DOSE VIAL ONE ×2 (12:20→12:31)
[2017-03-15] MEDS ORDERED: PROPOFOL 20 ML ONE (12:30)
[2017-03-15] MEDS ORDERED: ceFAZolin SODIUM 1 GM VIAL ONE (12:32)
[2017-03-15] MEDS ORDERED: SODIUM CHLORIDE 0.9% P/F 10 ML VIAL IJ ONE (12:32)
[2017-03-15] MEDS ORDERED: LIDOCAINE HCL 1%, 10 MG/ML (20ML VIAL) NR ONE ×2 (12:33)
[2017-03-15] MEDS ORDERED: LIDOCAINE HCL/PF 2% SDV 5ML VIAL ONE (12:35)
--- NOTE | 2017-03-15 12:52 | OP ---
Operative Note - Note: Operative Date: 03/15/17 Pre-Operative Diagnosis: Left upper back, left hip necrotic ulcers Operation: excisional debridement skin, subcutaneous tissue left upper back, left hip Post-Operative Diagnosis: Same as Pre-op Surgeon: Moises Soto Anesthesia: Fractional Estimated Blood Loss (mls): 20 Operative Report Dictated: Yes
[2017-03-15] MEDS: BACITRACIN 15 GM TUBE TOPICAL OINTMENT TP SCH ×2 (12:56→21:21)
--- NOTE | 2017-03-15 14:07 | PN ---
Progress Note, Physician History of Present Illness: stable patient for debridement of the wounds - Current Medication List Current Medications: Active Medications Acetaminophen (Tylenol -) 650 mg PO Q6H PRN PRN Reason: FEVER OR PAIN Bacitracin (Bacitracin -) 1 applic TP BID [facility] Collagenase (Santyl -) 1 applic TP DAILY [facility] Diazepam (Valium -) 10 mg PO HS [facility] Docusate Sodium (Colace -) 100 mg PO HS [facility] Lactated Ringer's (Lactated Ringers Solution) 1,000 mls @ 125 mls/hr IV ASDIR [facility] Morphine Sulfate (Msir -) 15 mg PO Q4H PRN PRN Reason: PAIN Ondansetron HCl (Zofran Injection) 4 mg IVPUSH Q6H PRN PRN Reason: NAUSEA AND/OR VOMITING Stop: 03/15/17 19:05 Ondansetron HCl (Zofran Injection) 4 mg IVPUSH Q6H PRN PRN Reason: NAUSEA AND/OR VOMITING Stop: 03/15/17 17:39 Pantoprazole Sodium (Protonix -) 40 mg PO BID [facility] Potassium Chloride (K-Dur -) 40 meq PO DAILY [facility] Potassium Phos/Sodium Phos (Phos-Nak Packet -) 1 packet PO TID [facility] Prednisone (Deltasone -) 10 mg PO DAILY [facility] Risperidone (Risperdal -) 1 mg PO BID [facility] Zolpidem Tartrate (Ambien -) 5 mg PO HS PRN - Objective Vital Signs: Vital Signs Temperature 99.4 F 03/15/17 13:00 Pulse Rate 70 03/15/17 13:45 Respiratory Rate 18 03/15/17 13:45 Blood Pressure 90/60 03/15/17 13:45 O2 Sat by Pulse Oximetry (%) 100 03/15/17 13:45 Constitutional: Yes: No Distress, Calm Cardiovascular: Yes: Regular Rate and Rhythm Respiratory: Yes: Regular, CTA Bilaterally Gastrointestinal: Yes: Normal Bowel Sounds, Soft Musculoskeletal: Yes: Other Extremities: Yes: Other Neurological: Yes: Alert, Oriented Psychiatric: Yes: Alert Labs: CBC, BMP 03/13/17 06:00 03/12/17 05:35 INR, PTT INR 1.20 (0.82-1.09) H 03/01/17 08:30 Assessment/Plan Problem List Problem List - Problems (1) TRENT (acute kidney injury) Assessment/Plan: CR WNL Code(s): N17.9 - ACUTE KIDNEY FAILURE, UNSPECIFIED (2) Anoxic brain injury Assessment/Plan: on [place] alert Code(s): G93.1 - ANOXIC BRAIN DAMAGE, NOT ELSEWHERE CLASSIFIED (3) Coma Assessment/Plan: awake and alert Code(s): R40.20 - UNSPECIFIED COMA Qualifiers: Coma depth: [place] coma 3-8 Coma timing: at arrival to emergency department Qualified Code(s): R40.2432 - Rossy coma scale score 3-8, at arrival to emergency department; R40.2432 - [place] coma scale score 3-8, at arrival to emergency department; R40.2432 - [place] coma scale score 3-8, at arrival to emergency department (4) Overdose Assessment/Plan: reportedly pt is on pain meds per crop puller Code(s): T50.901A - POISONING BY UNSP DRUG/MEDS/BIOL SUBST, ACCIDENTAL, INIT Qualifiers: Encounter type: initial encounter Injury intent: undetermined intent Qualified Code(s): T50.904A - Poisoning by unspecified drugs, medicaments and biological substances, undetermined, initial encounter; T50.904A - Poisoning by unspecified drugs, medicaments and biological substances, undetermined, initial encounter (5) Polypharmacy Code(s): Z79.899 - OTHER RESIDENTIAL (CURRENT) DRUG THERAPY (6) Respiratory failure Assessment/Plan: on [place] Code(s): J96.90 - RESPIRATORY FAILURE, UNSP, UNSP W HYPOXIA OR HYPERCAPNIA Qualifiers: Chronicity: acute (7) Rhabdomyolysis Code(s): M62.82 - RHABDOMYOLYSIS (8) Unresponsive Code(s): R41.89 - OTH SYMPTOMS AND SIGNS W COGNITIVE FUNCTIONS AND AWARENESS (9) UTI (urinary tract infection) Code(s): N39.0 - URINARY TRACT INFECTION, SITE NOT SPECIFIED (10) Lupus (systemic lupus erythematosus) Assessment/Plan: will get wound care involved for skin wounds Code(s): M32.9 - SYSTEMIC LUPUS ERYTHEMATOSUS, UNSPECIFIED (11) Myopathy Code(s): G72.9 - MYOPATHY, UNSPECIFIED asp pna leukocytosis uti plan continues to improve continue monitoring rest as per primary team debridement of the wound
[2017-03-15] MEDS: LACTATED RINGERS SOLUTION 1,000 ML IV SCH ×2 (14:36→21:19)
--- NOTE | 2017-03-15 15:24 | OP ---
DATE OF OPERATION: 03/14/2017 PREOPERATIVE DIAGNOSIS: Left upper back and left hip necrotic ulcers. POSTOPERATIVE DIAGNOSIS: Left upper back and left hip necrotic ulcers. PROCEDURE: Excisional debridement of skin and subcutaneous tissue, upper back and left hip. SURGEON: Moises Mejia DO ANESTHESIA: Fractional. BLOOD LOSS: 20 mL. The patient is a 46-year-old female who has been in the hospital for about 17 days now and has developed a left upper back necrotic eschar ulcer and a left hip ulcer. It was decided that the patient has necrotic tissue there and needs to have it debrided. The patient was consented for the procedure, understanding all risks, benefits, alternatives. She was then taken to the operating room. Once in the operating room, she was laid on the operating table in supine manner and the area of the left upper back and left hip were prepped and draped in a sterile surgical manner. Then 10 mL of lidocaine 1% was first injected into the left hip. We then went ahead and took a number 15 blade and we were able to sharply excise away the eschar and all the necrotic tissue underneath the ulcer. The patient was then left with a gaping wound over the left hip, covered by nice good fascia and subcutaneous tissue with very clean base. Bovie electrocautery was used to control hemostasis and we were able to place saline moist dressings in the wound. We then went to the upper back and injected 10 mL of lidocaine 1% there. We then took a number 10 blade and we were able to sharply excise away the eschar and its attachments underneath. There was good clean base with subcutaneous tissue underneath. At this point we placed saline moist dressings, dry dressings, ABD pads, and tape to both wounds. Patient was transferred to PACU in stable condition. Total blood loss 20 mL. took a Metzenbaum scissors and we were able to excise the skin and subcutaneous tissue that was necrotic out first from the right hip. We then used a curette and the edges of the wound were cleaned up to make sure that there was no more necrotic tissue. We then went to the sacrum and in the same manner, using a Metzenbaum scissors, we sharply debrided away the skin and all the subcutaneous tissue down to bone. Bovie electrocautery was then used to control hemostasis. Both wounds were well irrigated and saline moist dressing was used to pack the wounds. Then 4 x 4's and tape were placed. The patient tolerated the procedure, no complications. Patient transferred to PACU in stable condition. MOISES MEJIA DO [id number]
--- NOTE | 2017-03-15 16:24 | PN ---
Progress Note, Physician History of Present Illness: very alert doing well - Current Medication List Current Medications: Active Medications Acetaminophen (Tylenol -) 650 mg PO Q6H PRN PRN Reason: FEVER OR PAIN Bacitracin (Bacitracin -) 1 applic TP BID [facility] Collagenase (Santyl -) 1 applic TP DAILY [facility] Diazepam (Valium -) 10 mg PO HS [facility] Docusate Sodium (Colace -) 100 mg PO HS [facility] Lactated Ringer's (Lactated Ringers Solution) 1,000 mls @ 125 mls/hr IV [facility] Last Admin: 03/15/17 14:36 Dose: 125 mls/hr Morphine Sulfate (Msir -) 15 mg PO Q4H PRN PRN Reason: PAIN Last Admin: 03/15/17 15:34 Dose: 15 mg Ondansetron HCl (Zofran Injection) 4 mg IVPUSH Q6H PRN PRN Reason: NAUSEA AND/OR VOMITING Stop: 03/15/17 19:05 Ondansetron HCl (Zofran Injection) 4 mg IVPUSH Q6H PRN PRN Reason: NAUSEA AND/OR VOMITING Stop: 03/15/17 17:39 Pantoprazole Sodium (Protonix -) 40 mg PO BID [facility] Potassium Chloride (K-Dur -) 40 meq PO DAILY [facility] Potassium Phos/Sodium Phos (Phos-Nak Packet -) 1 packet PO TID [facility] Last Admin: 03/15/17 15:35 Dose: 1 packet Prednisone (Deltasone -) 10 mg PO DAILY [facility] Risperidone (Risperdal -) 1 mg PO BID [facility] Zolpidem Tartrate (Ambien -) 5 mg PO HS PRN - Objective Vital Signs: Vital Signs Temperature 98.5 F 03/15/17 14:35 Pulse Rate 87 03/15/17 14:35 Respiratory Rate 20 03/15/17 14:35 Blood Pressure 111/74 03/15/17 14:35 O2 Sat by Pulse Oximetry (%) 98 03/15/17 14:35 Constitutional: Yes: No Distress HENT: Yes: Atraumatic Neck: Yes: Supple Cardiovascular: Yes: Regular Rate and Rhythm Respiratory: Yes: CTA Bilaterally Gastrointestinal: Yes: Normal Bowel Sounds Extremities: Yes: WNL Neurological: Yes: Alert, Oriented Labs: CBC, BMP 03/13/17 06:00 03/12/17 05:35 INR, PTT INR 1.20 (0.82-1.09) H 03/01/17 08:30 Problem List - Problems (1) TRENT (acute kidney injury) Code(s): N17.9 - ACUTE KIDNEY FAILURE, UNSPECIFIED (2) Anoxic brain injury Code(s): G93.1 - ANOXIC BRAIN DAMAGE, NOT ELSEWHERE CLASSIFIED (3) Coma Code(s): R40.20 - UNSPECIFIED COMA Qualifiers: Coma depth: [place] coma 3-8 Coma timing: at arrival to emergency department Qualified Code(s): R40.2432 - [place] coma scale score 3-8, at arrival to emergency department; R40.2432 - [place] coma scale score 3-8, at arrival to emergency department; R40.2432 - [place] coma scale score 3-8, at arrival to emergency department (4) Overdose Code(s): T50.901A - POISONING BY UNSP DRUG/MEDS/BIOL SUBST, ACCIDENTAL, INIT Qualifiers: Encounter type: initial encounter Injury intent: undetermined intent Qualified Code(s): T50.904A - Poisoning by unspecified drugs, medicaments and biological substances, undetermined, initial encounter; T50.904A - Poisoning by unspecified drugs, medicaments and biological substances, undetermined, initial encounter (5) Polypharmacy Code(s): Z79.899 - OTHER INTERMEDIATE (CURRENT) DRUG THERAPY (6) Respiratory failure Code(s): J96.90 - RESPIRATORY FAILURE, UNSP, UNSP W HYPOXIA OR HYPERCAPNIA Qualifiers: Chronicity: acute (7) Rhabdomyolysis Code(s): M62.82 - RHABDOMYOLYSIS (8) Unresponsive Code(s): R41.89 - OTH SYMPTOMS AND SIGNS W COGNITIVE FUNCTIONS AND AWARENESS (9) UTI (urinary tract infection) Code(s): N39.0 - URINARY TRACT INFECTION, SITE NOT SPECIFIED (10) Lupus (systemic lupus erythematosus) Assessment/Plan: will get wound care involved for skin wounds Code(s): M32.9 - SYSTEMIC LUPUS ERYTHEMATOSUS, UNSPECIFIED (11) Myopathy Assessment/Plan: pt able to walk few steps with walker need PT Code(s): G72.9 - MYOPATHY, UNSPECIFIED (12) Skin ulcer Assessment/Plan: on the sides where pt was laying ..left hep and left side of chest and left malleolous its healing..eshar formation dressing in place s/p debridement today Code(s): L98.499 - NON-PRESSURE CHRONIC ULCER OF SKIN OF SITES W UNSP SEVERITY Qualifiers: Non-pressure ulcer stage: limited to breakdown of skin Qualified Code(s): L98.491 - Non-pressure chronic ulcer of skin of other sites limited to breakdown of skin; L98.491 - Non-pressure chronic ulcer of skin of other sites limited to breakdown of skin; L98.491 - Non-pressure chronic ulcer of skin of other sites limited to breakdown of skin; L98.491 - Non-pressure chronic ulcer of skin of other sites limited to breakdown of skin Assessment/Plan s/pdebridement of skin lesions
[2017-03-15] MEDS: COLLAGENASE CLOSTRIDIUM HIST. 30 GRAMS TUBE TP SCH (16:31)
[2017-03-15] MEDS: ALPRAZolam 0.25 MG TABLET PO PRN (18:34)
[2017-03-15] MEDS ORDERED: PT OWN MED DRAWER 7, Y5N ONE (21:15)
[2017-03-15] MEDS: DOCUSATE SODIUM 100 MG CAPSULE (FP) PO SCH (21:20)
[2017-03-15] MEDS: diazePAM 5 MG TABLET PO SCH (21:20)
--- NOTE | 2017-03-15 23:29 | CONSULT ---
Consult Consult Specialty:: Rheumatology - History of Present Illness History of Present Illness: 46 y/o woman with h/o lupus who was found unresponsive after unknown down time, suspected 2 days. She was found hemodynamically stable with GCS estimated about 3. On EMS arrival she was breathing independently, saturation 100% on NRB. She did not respond to Narcan without response and was intubated. She underwent CT head which was negative. Collateral history from brother/pharmacy reveals that pt takes morphine, phenobarbitol, and valium in addition to prednisone 30 daily. In the hospital mental status improved, she was extubated. HPI. Lupus. The patient reports she was diagnosed with Lupus in 2008. Apparently she had skin rash, hair loss, oral ulcers, Sicca syndrome and pain in low back and left aspect of pelvis. She claims she was not seen by a rheumatlogist and has been treated in the past with Prednisone, Hydroxychloroquine, Mycophenolate ( she had no response) and Methotrexate - which was discontinued 6 months ago. She was treated at a pain clinic at [facility] with Morphine sulfate and Phenobarbital. On admission urine was positive for benzodiazepines, barbiturates and opiods. Coma on admission was probably related to use of these medications. Laboratory work-up on admission revealed a creatinine of 1.8 that decreased to 0.6, AST 73 , decreased to 27. ESR 39 and haptoglobin 194. CK was 956, it increased to 1885 and then decreased to 735. EMG consistent with crytical illness myopathy. Anti-CLINIC LPN was 7.3, GONSALO, anti-SSA, anti-SSB, anti-Sm and anti-DNAds were all negative. Complement normal (C3: 131, C4: 25) and CH50: >65 (represents presence of acute phase reactant). Urinalysis was normal. The patient had a left upper back and left lateral aspect of pelvis necrotic ulcers, today she had excisional debridement of skin and subcutaneous tissue. At the present time she is on Prednisone 10 mg/d. - History Source History Provided By: Patient, Medical Record - Past Medical History [employer]: Yes: Other (SLE) Psych: Yes: Depression (questionable , denies suicidal ideation at present, or suicide attempt with prescribed medications, ) Rheumatology: Yes: Lupus - Alcohol/Substance Use Hx Alcohol Use: No (UNKNOWN) History of Substance Use: reports: Prescription - Smoking History Smoking history: Unknown if ever smoked - Social History Usual Living Arrangement: Alone Home Medications - Allergies Allergies/Adverse Reactions: Allergies Allergy/AdvReac Type Severity Reaction Status Date / Time methotrexate Allergy Unknown Vomiting Verified 03/12/17 18:53 metoclopramide HCl Allergy Unknown dystonia Verified 03/12/17 18:52 [From Reglan] - Home Medications Home Medications: Ambulatory Orders Unobtainable [Unobtainable] 02/26/17 Review of Systems - Review of Systems Constitutional: reports: Malaise Eyes: reports: No Symptoms HENT: reports: No Symptoms Neck: reports: No Symptoms Cardiovascular: reports: No Symptoms Respiratory: reports: No Symptoms Gastrointestinal: reports: No Symptoms Musculoskeletal: reports: Other (See HPI) Integumentary: reports: Other (See HPI) Physical Exam Vital Signs: Vital Signs Temperature 98.1 F 03/15/17 22:00 Pulse Rate 82 03/15/17 22:00 Respiratory Rate 20 03/15/17 22:00 Blood Pressure 115/71 03/15/17 22:00 O2 Sat by Pulse Oximetry (%) 100 03/15/17 21:00 Constitutional: Yes: Mild Distress Eyes: Yes: WNL HENT: Yes: WNL Cardiovascular: Yes: WNL Respiratory: Yes: WNL Gastrointestinal: Yes: WNL Musculoskeletal: Yes: Other (No active joints in hands. Significant tenderness in the left lateral aspect of pelvis. I was not able to examine the left hip adequately. No oher active joins) Integumentary: Yes: Other (Debrided ulcers are covered. Desquamative skin rash in lateral aspect of left thigh.) Labs: CBC, BMP 03/13/17 06:00 03/12/17 05:35 Laboratory Tests 02/26/17 02/28/17 02/28/17 13:40 10:57 10:57 ESR 39 H Haptoglobin Total Bilirubin AST ALT Alkaline Phosphatase Creatine Kinase Total Protein Albumin Urine Color Yellow Urine Appearance Clear Urine pH 5.0 Ur Specific [place] Pending Urine Protein Negative Urine Glucose (UA) Negative Urine Ketones Negative Urine Blood Negative Urine Nitrite Negative Urine Bilirubin Negative Urine Urobilinogen Negative Urine HCG, Qual GONSALO Screen Negative SS-A/Ro Antibody SS-B/La Antibody Sm ([place]) Antibody CLINIC LPN Antibody Double Strand DNA Ab Complement C3 Complement C4 Tot Complement (CH50) 02/28/17 02/28/17 02/28/17 17:45 17:45 18:00 ESR Haptoglobin Total Bilirubin AST ALT Alkaline Phosphatase Creatine Kinase Total Protein Albumin Urine Color Urine Appearance Urine pH Ur Specific [place] Urine Protein Urine Glucose (UA) Urine Ketones Urine Blood Urine Nitrite Urine Bilirubin Urine Urobilinogen Urine HCG, Qual [place] Screen SS-A/Ro Antibody <0.2 SS-B/La Antibody <0.2 Sm ([place]) Antibody <0.2 CLINIC LPN Antibody 7.3 H Double Strand DNA Ab 1 Complement C3 131 Complement C4 25 Tot Complement (CH50) > 65 H 03/03/17 03/06/17 03/12/17 05:15 19:00 05:35 ESR Haptoglobin 194 Total Bilirubin 0.4 AST 27 D ALT 51 D Alkaline Phosphatase 52 Creatine Kinase 735 H Total Protein 5.5 L Albumin 2.9 L Urine Color Urine Appearance Urine pH Ur Specific [place] Urine Protein Urine Glucose (UA) Urine Ketones Urine Blood Urine Nitrite Urine Bilirubin Urine Urobilinogen Urine HCG, Qual [place] Screen SS-A/Ro Antibody SS-B/La Antibody Sm ([place]) Antibody CLINIC LPN Antibody Double Strand DNA Ab Complement C3 Complement C4 Tot Complement (CH50) 03/15/17 11:45 ESR Haptoglobin Total Bilirubin AST ALT Alkaline Phosphatase Creatine Kinase Total Protein Albumin Urine Color Urine Appearance Urine pH Ur Specific [place] Urine Protein Urine Glucose (UA) Urine Ketones Urine Blood Urine Nitrite Urine Bilirubin Urine Urobilinogen Urine HCG, Qual Negative [place] Screen SS-A/Ro Antibody SS-B/La Antibody Sm ([place]) Antibody CLINIC LPN Antibody Double Strand DNA Ab Complement C3 Complement C4 Tot Complement (CH50) Problem List - Problems (1) Lupus Assessment/Plan: The patient has a previous diagnosis of lupus and apparently was treated with several immunomodulators and Prednisone, however she claims she was never seen by a electric brain 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 mechanic and in the present visit relevant serology was negative, complement was normal and urinalysis normal. It is unlikely that she has systemic lupus erythematosus. It is possible that she has discoid or subacute cutaneous lupus and the etiology of ulcers is not clear - r/o decubitus ulcers. She has chronic low back and left hip pain, treated with narcotics as outpatient. Etiology of pain is not clear. Rule out osteonecrosis or other pathology. Plan: X-rays of Pelvis and Lumbar spine. Contact PCP - find out if she had a skin Bx in the past,, Decrease Prednisone to 5 mg/d, Code(s): L93.0 - DISCOID LUPUS ERYTHEMATOSUS
[2017-03-15] MEDS: ZOLPIDEM TARTRATE 5 MG TABLET PO PRN (23:45)
[2017-03-16] MEDS: NAPH,MB-DB/K PH,MBDB POWDER PACKET PO SCH ×3 (05:51→21:32)
[2017-03-16] MEDS: LACTATED RINGERS SOLUTION 1,000 ML IV SCH ×3 (05:51→18:32)
[2017-03-16] MEDS: morphine SULFATE IMMEDIATE RELEASE 30 MG TAB PO PRN ×3 (06:52→16:53)
--- NOTE | 2017-03-16 08:18 | PN ---
Progress Note (short form) - Note Progress Note: Post op day#1.S/P Left sacral and left upper back of chest wall debredment of decubeti under MAC uneventful.Patient stable.No any anesthesia related problem.Patient Dc from the anesthesia care.
--- NOTE | 2017-03-16 09:21 | PN ---
Progress Note (short form) - Note Progress Note: Neurology History of Present Illness 46 year old female presented to ER completely unresponsive, Rossy coma scale of 3, who was "found down" possibly for several days and last known well two days prior to admission. Found in her own urine and feces without explanation of why. Concern for airway protection and ER intubated and put on mechanical ventilation in the ER. CT head completed and did not show acute changes. UTox positive for benzo, barbiturates, and opiods. Also with WBC of 18. Concern for drug overdose, was in ICU in close monitoring, eventually extubated and downgraded to telemetry. Has been more awake, alert, responsive, tracking examiner, conversive. Able to tell me she is in the hospital, the date, name of President. CT head repeated and did not show acute changes. EMG showed critical illness myopathy which appears to have improved. She is moving extremities over head without difficulty, completed vascular procedure. Awaiting placement to SNF. Active Medications Acetaminophen (Tylenol -) 650 mg PO Q6H PRN PRN Reason: FEVER OR PAIN Alprazolam (Xanax -) 0.25 mg PO Q8H PRN PRN Reason: ANXIETY Last Admin: 03/15/17 18:34 Dose: 0.25 mg Bacitracin (Bacitracin -) 1 applic TP BID [facility] Last Admin: 03/15/17 21:21 Dose: Not Given Collagenase (Santyl -) 1 applic TP DAILY [facility] Diazepam (Valium -) 10 mg PO HS [facility] Last Admin: 03/15/17 21:20 Dose: 10 mg Docusate Sodium (Colace -) 100 mg PO HS [facility] Last Admin: 03/15/17 21:20 Dose: 100 mg Lactated Ringer's (Lactated Ringers Solution) 1,000 mls @ 125 mls/hr IV ASDIR [facility] Last Admin: 03/16/17 05:51 Dose: 125 mls/hr Morphine Sulfate (Msir -) 15 mg PO Q4H PRN PRN Reason: PAIN Last Admin: 03/16/17 06:52 Dose: 15 mg Pantoprazole Sodium (Protonix -) 40 mg PO BID [facility] Last Admin: 03/15/17 21:20 Dose: 40 mg Potassium Chloride (K-Dur -) 40 meq PO DAILY [facility] Potassium Phos/Sodium Phos (Phos-Nak Packet -) 1 packet PO TID [facility] Last Admin: 03/16/17 05:51 Dose: 1 packet Prednisone (Deltasone -) 5 mg PO DAILY [facility] Risperidone (Risperdal -) 1 mg PO BID [facility] Last Admin: 03/15/17 21:20 Dose: 1 mg Zolpidem Tartrate (Ambien -) 5 mg PO HS PRN Last Admin: 03/15/17 23:45 Dose: 5 mg *Physical Exam Vital Signs Temperature 98.9 F 03/16/17 05:36 Pulse Rate 92 H 03/16/17 05:36 Respiratory Rate 20 03/16/17 05:36 Blood Pressure 119/77 03/16/17 05:36 O2 Sat by Pulse Oximetry (%) 100 03/15/17 21:00 Awake, tracking examiner, verbal and cooperative, conversive, maintains attention Squeezing hand to command, raising arms or legs to command, moving b/l UE with full range of motion No hemiparesis Intact to tactile stimulation Finger to nose intact Lungs sounds mechanical RRR Abdomen soft Gait deferred CBCD WBC 4.9 K/mm3 (4.0-10.0) 03/13/17 06:00 RBC 3.90 M/mm3 (3.60-5.2) 03/13/17 06:00 Hgb 9.3 GM/dL (10.7-15.3) L 03/13/17 06:00 Hct 29.4 % (32.4-45.2) L 03/13/17 06:00 MCV 75.3 fl (80-96) L 03/13/17 06:00 MCHC 31.7 g/dl (32.0-36.0) L 03/13/17 06:00 RDW 26.1 % (11.6-15.6) H 03/13/17 06:00 Plt Count 247 K/MM3 (134-434) 03/13/17 06:00 MPV 9.7 fl (7.5-11.1) 03/13/17 06:00 CMP Sodium 142 mmol/L (136-145) 03/12/17 05:35 Potassium 4.7 mmol/L (3.5-5.1) D 03/12/17 05:35 Chloride 106 mmol/L (98-107) 03/12/17 05:35 Carbon Dioxide 27 mmol/L (21-32) 03/12/17 05:35 Anion Gap 9 (8-16) 03/12/17 05:35 BUN 11 mg/dL (7-18) D 03/12/17 05:35 Creatinine 0.6 mg/dL (0.55-1.02) 03/12/17 05:35 Creat Clearance w eGFR > 60 (>60) 03/12/17 05:35 Calcium 8.9 mg/dL (8.5-10.1) 03/12/17 05:35 Total Bilirubin 0.4 mg/dL (0.2-1.0) 03/12/17 05:35 AST 27 U/L (15-37) D 03/12/17 05:35 ALT 51 U/L (12-78) D 03/12/17 05:35 Alkaline Phosphatase 52 U/L (45-117) 03/12/17 05:35 Total Protein 5.5 g/dl (6.4-8.2) L 03/12/17 05:35 Albumin 2.9 g/dl (3.4-5.0) L 03/12/17 05:35 CT head repeat reviewed Plan: 46 year old female presented to ER completely unresponsive, Rossy coma scale of 3, who was "found down" possibly for several days and last known well two days ago. Found in her own urine and feces without explanation of why. Concern for airway protection and ER intubated and put on mechanical ventilation, under close observation in the ICU. CT head completed and did not show acute changes. Repeat CT head without acute changes UTox positive for benzo, barbiturates, and opiods. Likely drug overdose Hydration as needed Weaned from mechanical vent, comfortable on room air No evidence of seizures Mental status improved, possibly at baseline Critical illness myopathy on EMG, strenght improved Started on Risperdal 1mg bid Planned for SNF
[2017-03-16] MEDS ORDERED: predniSONE 10 MG TABLET (UD) PO SCH (10:00)
[2017-03-16] MEDS ORDERED: PT OWN MED DRAWER 7, Y5N ONE (10:27)
[2017-03-16] MEDS: PANTOPRAZOLE 40 MG TABLET (FP) PO SCH ×2 (10:35→21:33)
[2017-03-16] MEDS: risperiDONE 1 MG TABLET (FP) PO SCH ×2 (10:35→21:33)
[2017-03-16] MEDS: POTASSIUM CHLORIDE TABS 20 MEQ TABLET.ER (FP) PO SCH (10:35)
[2017-03-16] MEDS: predniSONE 5 MG TABLET (UD) PO SCH (10:35)
--- NOTE | 2017-03-16 12:21 | PN ---
Progress Note, Physician History of Present Illness: Underwent left upper back and left hip wound debridement yesterday, no complaints. - Current Medication List Current Medications: Active Medications Acetaminophen (Tylenol -) 650 mg PO Q6H PRN PRN Reason: FEVER OR PAIN Alprazolam (Xanax -) 0.25 mg PO Q8H PRN PRN Reason: ANXIETY Last Admin: 03/15/17 18:34 Dose: 0.25 mg Bacitracin (Bacitracin -) 1 applic TP BID [facility] Last Admin: 03/15/17 21:21 Dose: Not Given Collagenase (Santyl -) 1 applic TP DAILY [facility] Diazepam (Valium -) 10 mg PO HS [facility] Last Admin: 03/15/17 21:20 Dose: 10 mg Docusate Sodium (Colace -) 100 mg PO HS [facility] Last Admin: 03/15/17 21:20 Dose: 100 mg Lactated Ringer's (Lactated Ringers Solution) 1,000 mls @ 125 mls/hr IV ASDIR [facility] Last Admin: 03/16/17 05:51 Dose: 125 mls/hr Morphine Sulfate (Msir -) 15 mg PO Q4H PRN PRN Reason: PAIN Last Admin: 03/16/17 10:35 Dose: 15 mg Pantoprazole Sodium (Protonix -) 40 mg PO BID [facility] Last Admin: 03/16/17 10:35 Dose: 40 mg Potassium Chloride (K-Dur -) 40 meq PO DAILY [facility] Last Admin: 03/16/17 10:35 Dose: 40 meq Potassium Phos/Sodium Phos (Phos-Nak Packet -) 1 packet PO TID [facility] Last Admin: 03/16/17 05:51 Dose: 1 packet Prednisone (Deltasone -) 5 mg PO DAILY [facility] Last Admin: 03/16/17 10:35 Dose: 5 mg Risperidone (Risperdal -) 1 mg PO BID [facility] Last Admin: 03/16/17 10:35 Dose: 1 mg Zolpidem Tartrate (Ambien -) 5 mg PO HS PRN Last Admin: 03/15/17 23:45 Dose: 5 mg - Objective Vital Signs: Vital Signs Temperature 98.9 F 03/16/17 05:36 Pulse Rate 92 H 03/16/17 05:36 Respiratory Rate 20 03/16/17 05:36 Blood Pressure 119/77 03/16/17 05:36 O2 Sat by Pulse Oximetry (%) 100 03/15/17 21:00 Constitutional: Yes: No Distress, Calm Neck: Yes: Supple Cardiovascular: Yes: Regular Rate and Rhythm Respiratory: Yes: Regular, CTA Bilaterally Gastrointestinal: Yes: Normal Bowel Sounds, Soft Edema: No Labs: CBC, BMP 03/13/17 06:00 03/12/17 05:35 INR, PTT INR 1.20 (0.82-1.09) H 03/01/17 08:30 Problem List - Problems (1) Overdose Code(s): T50.901A - POISONING BY UNSP DRUG/MEDS/BIOL SUBST, ACCIDENTAL, INIT Qualifiers: Encounter type: initial encounter Injury intent: undetermined intent Qualified Code(s): T50.904A - Poisoning by unspecified drugs, medicaments and biological substances, undetermined, initial encounter; T50.904A - Poisoning by unspecified drugs, medicaments and biological substances, undetermined, initial encounter (2) Respiratory failure Code(s): J96.90 - RESPIRATORY FAILURE, UNSP, UNSP W HYPOXIA OR HYPERCAPNIA Qualifiers: Chronicity: acute (3) Aspiration pneumonia Code(s): J69.0 - PNEUMONITIS DUE TO INHALATION OF FOOD AND VOMIT Qualifiers: Aspiration pneumonia type: due to vomit Lung location: unspecified part of lung (4) Lupus (systemic lupus erythematosus) Code(s): M32.9 - SYSTEMIC LUPUS ERYTHEMATOSUS, UNSPECIFIED (5) Anemia Code(s): D64.9 - ANEMIA, UNSPECIFIED Qualifiers: Anemia type: unspecified type Qualified Code(s): D64.9 - Anemia, unspecified; D64.9 - Anemia, unspecified (6) Skin ulcer Code(s): L98.499 - NON-PRESSURE CHRONIC ULCER OF SKIN OF SITES W UNSP SEVERITY Qualifiers: Non-pressure ulcer stage: limited to breakdown of skin Qualified Code(s): L98.491 - Non-pressure chronic ulcer of skin of other sites limited to breakdown of skin; L98.491 - Non-pressure chronic ulcer of skin of other sites limited to breakdown of skin; L98.491 - Non-pressure chronic ulcer of skin of other sites limited to breakdown of skin; L98.491 - Non-pressure chronic ulcer of skin of other sites limited to breakdown of skin Assessment/Plan 1. Post acute respiratory failure, persistent toxic metabolic encephalopathy, possible drug overdose 2. Sepsis syndrome, resolved 3. History of Lupus 4. Acute on chronic renal insufficiency, pre-renal azotemia, resolved 5. Anemia 6. Critical illness myopathy on EMG 7. Left upper back and hip necrotic ulcer post debridement PLAN: 1. Wound care 2. DVT prophylaxis, steroid taper with GI prophylaxis, PT->rehab 3. Rheum input appreciated
--- NOTE | 2017-03-16 13:34 | PATH ---
Surgical Pathology Report Patient Name: ALFREDO DESHPANDE Med. Rec. #: [id number] /Age/Gender: 1970 (Age: 46) / F Account: [id number] Location: [facility] MED/SURG Taken: 03/15/2017 Received: 03/15/2017 Reported: 03/16/2017 Physicians: Moises Soto Specimen(s) Received DEBRIDEMENT TISSUE Clinical History Left upper back and left hip necrotic ulcers Final Diagnosis SUBCUTANEOUS SOFT TISSUE, LEFT HIP AND LEFT BACK, DEBRIDEMENT: GANGRENOUS NECROSIS AND INFLAMED GRANULATION TISSUE. Electronically Signed William Naqvi M.D. Gross Description Received in formalin labeled "debrided subcutaneous tissue left hip and left upper back" are 2 martinez-david, irregular, unoriented and undesignated portions of necrotic skin with underlying soft tissue. The specimens measure 7.0 x 4.0 x 4.0 cm and 7.2 x 2.2 x 0.8 cm. Provider Relations Manager sections are submitted in 2 cassettes. /03/15/2017 saudi/03/15/2017
[2017-03-16] MEDS: COLLAGENASE CLOSTRIDIUM HIST. 30 GRAMS TUBE TP SCH (14:01)
--- NOTE | 2017-03-16 15:15 | PN ---
Progress Note (short form) - Note Progress Note: Vascular Surgery Pt seen and examined. Walking with PT Will need vac placement to left hip Saline moist dressing to upper back. Moises Soto DO
--- NOTE | 2017-03-16 15:35 | PN ---
Progress Note, Physician History of Present Illness: patient doing well stable looks much more awake and alert - Current Medication List Current Medications: Active Medications Acetaminophen (Tylenol -) 650 mg PO Q6H PRN PRN Reason: FEVER OR PAIN Alprazolam (Xanax -) 0.25 mg PO Q8H PRN PRN Reason: ANXIETY Last Admin: 03/15/17 18:34 Dose: 0.25 mg Bacitracin (Bacitracin -) 1 applic TP BID [facility] Last Admin: 03/15/17 21:21 Dose: Not Given Collagenase (Santyl -) 1 applic TP DAILY [facility] Last Admin: 03/16/17 14:01 Dose: Not Given Diazepam (Valium -) 10 mg PO HS [facility] Last Admin: 03/15/17 21:20 Dose: 10 mg Docusate Sodium (Colace -) 100 mg PO HS [facility] Last Admin: 03/15/17 21:20 Dose: 100 mg Enoxaparin Sodium (Lovenox -) 40 mg SQ DAILY [facility] Lactated Ringer's (Lactated Ringers Solution) 1,000 mls @ 125 mls/hr IV ASDIR [facility] Last Admin: 03/16/17 15:07 Dose: Not Given Morphine Sulfate (Msir -) 15 mg PO Q4H PRN PRN Reason: PAIN Last Admin: 03/16/17 10:35 Dose: 15 mg Pantoprazole Sodium (Protonix -) 40 mg PO BID [facility] Last Admin: 03/16/17 10:35 Dose: 40 mg Potassium Chloride (K-Dur -) 40 meq PO DAILY [facility] Last Admin: 03/16/17 10:35 Dose: 40 meq Potassium Phos/Sodium Phos (Phos-Nak Packet -) 1 packet PO TID [facility] Last Admin: 03/16/17 15:06 Dose: 1 packet Prednisone (Deltasone -) 5 mg PO DAILY [facility] Last Admin: 03/16/17 10:35 Dose: 5 mg Risperidone (Risperdal -) 1 mg PO BID [facility] Last Admin: 03/16/17 10:35 Dose: 1 mg Zolpidem Tartrate (Ambien -) 5 mg PO HS PRN Last Admin: 03/15/17 23:45 Dose: 5 mg - Objective Vital Signs: Vital Signs Temperature 97.3 F L 03/16/17 14:52 Pulse Rate 110 H 03/16/17 14:52 Respiratory Rate 20 03/16/17 14:52 Blood Pressure 122/83 03/16/17 14:52 O2 Sat by Pulse Oximetry (%) 100 03/16/17 09:00 Constitutional: Yes: No Distress, Calm Neck: Yes: Supple Cardiovascular: Yes: Regular Rate and Rhythm Respiratory: Yes: Regular, CTA Bilaterally Gastrointestinal: Yes: Normal Bowel Sounds, Soft Musculoskeletal: Yes: WNL Extremities: Yes: Other Neurological: Yes: Alert, Oriented Psychiatric: Yes: Alert, Oriented Labs: CBC, BMP 03/13/17 06:00 03/12/17 05:35 INR, PTT INR 1.20 (0.82-1.09) H 03/01/17 08:30 Assessment/Plan Problem List Problem List - Problems (1) TRENT (acute kidney injury) Assessment/Plan: CR WNL Code(s): N17.9 - ACUTE KIDNEY FAILURE, UNSPECIFIED (2) Anoxic brain injury Assessment/Plan: on [place] alert Code(s): G93.1 - ANOXIC BRAIN DAMAGE, NOT ELSEWHERE CLASSIFIED (3) Coma Assessment/Plan: awake and alert Code(s): R40.20 - UNSPECIFIED COMA Qualifiers: Coma depth: [place] coma 3-8 Coma timing: at arrival to emergency department Qualified Code(s): R40.2432 - [place] coma scale score 3-8, at arrival to emergency department; R40.2432 - [place] coma scale score 3-8, at arrival to emergency department; R40.2432 - [place] coma scale score 3-8, at arrival to emergency department (4) Overdose Assessment/Plan: reportedly pt is on pain meds per oncology specialist Code(s): T50.901A - POISONING BY UNSP DRUG/MEDS/BIOL SUBST, ACCIDENTAL, INIT Qualifiers: Encounter type: initial encounter Injury intent: undetermined intent Qualified Code(s): T50.904A - Poisoning by unspecified drugs, medicaments and biological substances, undetermined, initial encounter; T50.904A - Poisoning by unspecified drugs, medicaments and biological substances, undetermined, initial encounter (5) Polypharmacy Code(s): Z79.899 - OTHER INTERMEDIATE (CURRENT) DRUG THERAPY (6) Respiratory failure Assessment/Plan: on [place] Code(s): J96.90 - RESPIRATORY FAILURE, UNSP, UNSP W HYPOXIA OR HYPERCAPNIA Qualifiers: Chronicity: acute (7) Rhabdomyolysis Code(s): M62.82 - RHABDOMYOLYSIS (8) Unresponsive Code(s): R41.89 - OTH SYMPTOMS AND SIGNS W COGNITIVE FUNCTIONS AND AWARENESS (9) UTI (urinary tract infection) Code(s): N39.0 - URINARY TRACT INFECTION, SITE NOT SPECIFIED (10) Lupus (systemic lupus erythematosus) Assessment/Plan: will get wound care involved for skin wounds Code(s): M32.9 - SYSTEMIC LUPUS ERYTHEMATOSUS, UNSPECIFIED (11) Myopathy Code(s): G72.9 - MYOPATHY, UNSPECIFIED asp pna leukocytosis uti plan continues to improve continue monitoring rest as per primary team dressing dry and intact
[2017-03-16] MEDS: HYDROmorphone HCL CARPU-JECT 1 MG/1 ML DISP.SYRIN IVPB PRN (17:38)
[2017-03-16] MEDS: BACITRACIN 15 GM TUBE TOPICAL OINTMENT TP SCH ×2 (17:50→21:32)
--- NOTE | 2017-03-16 17:51 | PN ---
Progress Note, Physician History of Present Illness: c/o pain at the lesions and back - Current Medication List Current Medications: Active Medications Acetaminophen (Tylenol -) 650 mg PO Q6H PRN PRN Reason: FEVER OR PAIN Alprazolam (Xanax -) 0.25 mg PO Q8H PRN PRN Reason: ANXIETY Last Admin: 03/15/17 18:34 Dose: 0.25 mg Bacitracin (Bacitracin -) 1 applic TP BID [facility] Last Admin: 03/15/17 21:21 Dose: Not Given Collagenase (Santyl -) 1 applic TP DAILY [facility] Last Admin: 03/16/17 14:01 Dose: Not Given Diazepam (Valium -) 10 mg PO HS [facility] Last Admin: 03/15/17 21:20 Dose: 10 mg Docusate Sodium (Colace -) 100 mg PO HS [facility] Last Admin: 03/15/17 21:20 Dose: 100 mg Enoxaparin Sodium (Lovenox -) 40 mg SQ DAILY [facility] Hydromorphone HCl (Dilaudid Injection -) 1 mg IVPB Q3H PRN PRN Reason: PAIN Last Admin: 03/16/17 17:38 Dose: 1 mg Lactated Ringer's (Lactated Ringers Solution) 1,000 mls @ 125 mls/hr IV ASDIR [facility] Last Admin: 03/16/17 15:07 Dose: Not Given Morphine Sulfate (Msir -) 15 mg PO Q4H PRN PRN Reason: PAIN Last Admin: 03/16/17 16:53 Dose: 15 mg Pantoprazole Sodium (Protonix -) 40 mg PO BID [facility] Last Admin: 03/16/17 10:35 Dose: 40 mg Potassium Chloride (K-Dur -) 40 meq PO DAILY [facility] Last Admin: 03/16/17 10:35 Dose: 40 meq Potassium Phos/Sodium Phos (Phos-Nak Packet -) 1 packet PO TID [facility] Last Admin: 03/16/17 15:06 Dose: 1 packet Prednisone (Deltasone -) 5 mg PO DAILY [facility] Last Admin: 03/16/17 10:35 Dose: 5 mg Risperidone (Risperdal -) 1 mg PO BID [facility] Last Admin: 03/16/17 10:35 Dose: 1 mg Zolpidem Tartrate (Ambien -) 5 mg PO HS PRN Last Admin: 03/15/17 23:45 Dose: 5 mg - Objective Vital Signs: Vital Signs Temperature 97.3 F L 03/16/17 14:52 Pulse Rate 110 H 03/16/17 14:52 Respiratory Rate 20 03/16/17 14:52 Blood Pressure 122/83 03/16/17 14:52 O2 Sat by Pulse Oximetry (%) 100 03/16/17 09:00 Constitutional: Yes: Calm HENT: Yes: Atraumatic Neck: Yes: Supple Cardiovascular: Yes: Regular Rate and Rhythm Respiratory: Yes: CTA Bilaterally Gastrointestinal: Yes: Normal Bowel Sounds Extremities: Yes: WNL Integumentary: Yes: Other (skin wound) Neurological: Yes: Alert, Oriented ...Motor Strength: LLE, RLE (still 4/5) Labs: CBC, BMP 03/13/17 06:00 03/12/17 05:35 INR, PTT INR 1.20 (0.82-1.09) H 03/01/17 08:30 Problem List - Problems (1) TRENT (acute kidney injury) Assessment/Plan: CR WNL Code(s): N17.9 - ACUTE KIDNEY FAILURE, UNSPECIFIED (2) Anoxic brain injury Assessment/Plan: on [place] alert Code(s): G93.1 - ANOXIC BRAIN DAMAGE, NOT ELSEWHERE CLASSIFIED (3) Coma Assessment/Plan: awake and alert Code(s): R40.20 - UNSPECIFIED COMA Qualifiers: Coma depth: [place] coma 3-8 Coma timing: at arrival to emergency department Qualified Code(s): R40.2432 - [place]y coma scale score 3-8, at arrival to emergency department; R40.2432 - [place] coma scale score 3-8, at arrival to emergency department; R40.2432 - [place] coma scale score 3-8, at arrival to emergency department (4) Overdose Assessment/Plan: reportedly pt is on pain meds per collateral specialist Code(s): T50.901A - POISONING BY UNSP DRUG/MEDS/BIOL SUBST, ACCIDENTAL, INIT Qualifiers: Encounter type: initial encounter Injury intent: undetermined intent Qualified Code(s): T50.904A - Poisoning by unspecified drugs, medicaments and biological substances, undetermined, initial encounter; T50.904A - Poisoning by unspecified drugs, medicaments and biological substances, undetermined, initial encounter (5) Polypharmacy Code(s): Z79.899 - OTHER LONG-TERM (CURRENT) DRUG THERAPY (6) Respiratory failure Assessment/Plan: on [place] Code(s): J96.90 - RESPIRATORY FAILURE, UNSP, UNSP W HYPOXIA OR HYPERCAPNIA Qualifiers: Chronicity: acute (7) Rhabdomyolysis Assessment/Plan: ivf resolving Code(s): M62.82 - RHABDOMYOLYSIS (8) Unresponsive Code(s): R41.89 - OTH SYMPTOMS AND SIGNS W COGNITIVE FUNCTIONS AND AWARENESS (9) UTI (urinary tract infection) Assessment/Plan: not on abx anymore id on board cxs noted Code(s): N39.0 - URINARY TRACT INFECTION, SITE NOT SPECIFIED (10) Lupus (systemic lupus erythematosus) Assessment/Plan: will get wound care involved for skin wounds Code(s): M32.9 - SYSTEMIC LUPUS ERYTHEMATOSUS, UNSPECIFIED (11) Myopathy Assessment/Plan: pt able to walk few steps with walker Code(s): G72.9 - MYOPATHY, UNSPECIFIED (12) Skin ulcer Assessment/Plan: on the sides where pt was laying ..left hep and left side of chest and left malleolous its healing..eshar formation dressing in place chriss get wound care involve Code(s): L98.499 - NON-PRESSURE CHRONIC ULCER OF SKIN OF SITES W UNSP SEVERITY Qualifiers: Non-pressure ulcer stage: limited to breakdown of skin Qualified Code(s): L98.491 - Non-pressure chronic ulcer of skin of other sites limited to breakdown of skin; L98.491 - Non-pressure chronic ulcer of skin of other sites limited to breakdown of skin; L98.491 - Non-pressure chronic ulcer of skin of other sites limited to breakdown of skin; L98.491 - Non-pressure chronic ulcer of skin of other sites limited to breakdown of skin Assessment/Plan s/pdebridement of skin lesions
[2017-03-16] MEDS: ACETAMINOPHEN 325 MG TABLET (FP) PO PRN (20:15)
[2017-03-16] MEDS ORDERED: cefTRIAXone SODIUM 1 GM VIAL ONE (20:21)
[2017-03-16] MEDS ORDERED: DEXTROSE 5%-WATER 100 ML IVPB ONE (20:22)
[2017-03-16] MEDS: CEFTRIAXONE 1 GM in DEXTROSE 5%-WATER 100 ML IVPB SCH (20:34)
[2017-03-16] MEDS: DOCUSATE SODIUM 100 MG CAPSULE (FP) PO SCH (21:32)
[2017-03-16] MEDS: diazePAM 5 MG TABLET PO SCH (21:35)
[2017-03-16] MEDS: ZOLPIDEM TARTRATE 5 MG TABLET PO PRN (23:29)
[2017-03-17] MEDS: HYDROmorphone HCL CARPU-JECT 1 MG/1 ML DISP.SYRIN IVPB PRN ×3 (00:39→17:09)
[2017-03-17] MEDS: LACTATED RINGERS SOLUTION 1,000 ML IV SCH (03:00)
[2017-03-17] MEDS: morphine SULFATE IMMEDIATE RELEASE 30 MG TAB PO PRN (05:05)
[2017-03-17] MEDS: NAPH,MB-DB/K PH,MBDB POWDER PACKET PO SCH ×3 (05:05→22:29)
[2017-03-17 07:29] LABS: BASOPHIL 0.6 % (0-2.0); EOSINOPHIL 2.5 % (0-4.5); MCHC 31.4 g/dl (32.0-36.0); MEAN CELL VOLUME 76.4 fl (80-96); MEAN PLT VOLUME 9.7 fl (7.5-11.1); NEUTROPHILS 57.7 % (42.8-82.8); PLATELET COUNT 230 K/MM3 (134-434); RDW 26.2 % (11.6-15.6); WHITE BLOOD COUNT 3.6 K/mm3 (4.0-10.0)
[2017-03-17 08:04] LABS: ALBUMIN 2.7 g/dl (3.4-5.0); ANION GAP 9 (8-16); CALCIUM 8.6 mg/dL (8.5-10.1); CO2 28 mmol/L (21-32); CREATININE 0.5 mg/dL (0.55-1.02); GLUCOSE,RANDOM 99 mg/dL (74-106); SGOT/AST 15 U/L (15-37); SGPT/ALT 25 U/L (12-78)
[2017-03-17 08:07] LABS: ALK PHOS 50 U/L (45-117); BILIRUBIN,TOTAL 0.4 mg/dL (0.2-1.0); TOT PROT 5.4 g/dl (6.4-8.2)
[2017-03-17] MEDS ORDERED: PT OWN MED DRAWER 7, Y5N ONE (09:14)
[2017-03-17] MEDS ORDERED: DEXTROSE 5%-WATER 100 ML IVPB ONE (09:14)
[2017-03-17] MEDS ORDERED: cefTRIAXone SODIUM 1 GM VIAL ONE (09:14)
[2017-03-17] MEDS: CEFTRIAXONE 1 GM in DEXTROSE 5%-WATER 100 ML IVPB SCH (09:16)
[2017-03-17] MEDS: POTASSIUM CHLORIDE TABS 20 MEQ TABLET.ER (FP) PO SCH (09:17)
[2017-03-17] MEDS: predniSONE 5 MG TABLET (UD) PO SCH (09:17)
[2017-03-17] MEDS: ENOXAPARIN NA (PORCINE) 40 MG/0.4 ML DISP.SYRIN SQ SCH (09:17)
[2017-03-17] MEDS: risperiDONE 1 MG TABLET (FP) PO SCH ×2 (09:17→22:28)
[2017-03-17] MEDS: COLLAGENASE CLOSTRIDIUM HIST. 30 GRAMS TUBE TP SCH (09:18)
[2017-03-17] MEDS: BACITRACIN 15 GM TUBE TOPICAL OINTMENT TP SCH ×2 (09:19→22:29)
[2017-03-17] MEDS: PANTOPRAZOLE 40 MG TABLET (FP) PO SCH ×2 (09:50→22:29)
--- NOTE | 2017-03-17 11:13 | PN ---
Progress Note, Physician History of Present Illness: Catotonic, staring into space. - Current Medication List Current Medications: Active Medications Acetaminophen (Tylenol -) 650 mg PO Q6H PRN PRN Reason: FEVER OR PAIN Last Admin: 03/16/17 20:15 Dose: 650 mg Alprazolam (Xanax -) 0.25 mg PO Q8H PRN PRN Reason: ANXIETY Last Admin: 03/15/17 18:34 Dose: 0.25 mg Bacitracin (Bacitracin -) 1 applic TP BID [facility] Last Admin: 03/17/17 09:19 Dose: 1 applic Collagenase (Santyl -) 1 applic TP DAILY [facility] Last Admin: 03/17/17 09:18 Dose: Not Given Diazepam (Valium -) 10 mg PO HS [facility] Last Admin: 03/16/17 21:35 Dose: 10 mg Docusate Sodium (Colace -) 100 mg PO HS [facility] Last Admin: 03/16/17 21:32 Dose: 100 mg Enoxaparin Sodium (Lovenox -) 40 mg SQ DAILY [facility] Last Admin: 03/17/17 09:17 Dose: 40 mg Hydromorphone HCl (Dilaudid Injection -) 1 mg IVPB Q3H PRN PRN Reason: PAIN Last Admin: 03/17/17 08:13 Dose: 1 mg Ceftriaxone Sodium 1 gm/ (Dextrose) 100 mls @ 100 mls/hr IVPB DAILY [facility] Last Admin: 03/17/17 09:16 Dose: 100 mls/hr Lactated Ringer's (Lactated Ringers Solution) 1,000 mls @ 75 mls/hr IV ASDIR [facility] Stop: 03/18/17 00:34 Morphine Sulfate (Msir -) 15 mg PO Q4H PRN PRN Reason: PAIN Last Admin: 03/17/17 05:05 Dose: 15 mg Pantoprazole Sodium (Protonix -) 40 mg PO BID [facility] Last Admin: 03/17/17 09:50 Dose: 40 mg Potassium Chloride (K-Dur -) 40 meq PO DAILY [facility] Last Admin: 03/17/17 09:17 Dose: 40 meq Potassium Phos/Sodium Phos (Phos-Nak Packet -) 1 packet PO TID [facility] Last Admin: 03/17/17 05:05 Dose: 1 packet Prednisone (Deltasone -) 5 mg PO DAILY [facility] Last Admin: 03/17/17 09:17 Dose: 5 mg Risperidone (Risperdal -) 1 mg PO BID [facility] Last Admin: 03/17/17 09:17 Dose: 1 mg Zolpidem Tartrate (Ambien -) 5 mg PO HS PRN Last Admin: 03/16/17 23:29 Dose: 5 mg - Objective Vital Signs: Vital Signs Temperature 98.3 F 03/17/17 08:18 Pulse Rate 103 H 03/17/17 08:18 Respiratory Rate 20 03/17/17 08:18 Blood Pressure 141/87 03/17/17 08:18 O2 Sat by Pulse Oximetry (%) 100 03/17/17 09:00 Constitutional: Yes: No Distress, Calm, Thin Neck: Yes: Supple Cardiovascular: Yes: Regular Rate and Rhythm Respiratory: Yes: Regular, CTA Bilaterally Gastrointestinal: Yes: Normal Bowel Sounds, Soft Edema: No Labs: CBC, BMP 03/17/17 06:00 03/17/17 06:00 INR, PTT INR 1.20 (0.82-1.09) H 03/01/17 08:30 Problem List - Problems (1) Overdose Code(s): T50.901A - POISONING BY UNSP DRUG/MEDS/BIOL SUBST, ACCIDENTAL, INIT Qualifiers: Encounter type: initial encounter Injury intent: undetermined intent Qualified Code(s): T50.904A - Poisoning by unspecified drugs, medicaments and biological substances, undetermined, initial encounter; T50.904A - Poisoning by unspecified drugs, medicaments and biological substances, undetermined, initial encounter (2) Respiratory failure Code(s): J96.90 - RESPIRATORY FAILURE, UNSP, UNSP W HYPOXIA OR HYPERCAPNIA Qualifiers: Chronicity: acute (3) Aspiration pneumonia Code(s): J69.0 - PNEUMONITIS DUE TO INHALATION OF FOOD AND VOMIT Qualifiers: Aspiration pneumonia type: due to vomit Lung location: unspecified part of lung (4) Lupus (systemic lupus erythematosus) Code(s): M32.9 - SYSTEMIC LUPUS ERYTHEMATOSUS, UNSPECIFIED (5) Anemia Code(s): D64.9 - ANEMIA, UNSPECIFIED Qualifiers: Anemia type: unspecified type Qualified Code(s): D64.9 - Anemia, unspecified; D64.9 - Anemia, unspecified (6) Skin ulcer Code(s): L98.499 - NON-PRESSURE CHRONIC ULCER OF SKIN OF SITES W UNSP SEVERITY Qualifiers: Non-pressure ulcer stage: limited to breakdown of skin Qualified Code(s): L98.491 - Non-pressure chronic ulcer of skin of other sites limited to breakdown of skin; L98.491 - Non-pressure chronic ulcer of skin of other sites limited to breakdown of skin; L98.491 - Non-pressure chronic ulcer of skin of other sites limited to breakdown of skin; L98.491 - Non-pressure chronic ulcer of skin of other sites limited to breakdown of skin (7) Catatonia Code(s): F06.1 - CATATONIC DISORDER DUE TO KNOWN PHYSIOLOGICAL CONDITION Assessment/Plan 1. Catatonia 2. Post acute respiratory failure, persistent toxic metabolic encephalopathy, possible drug overdose 3. Sepsis syndrome, resolved 4. History of Lupus 5. Acute on chronic renal insufficiency, pre-renal azotemia, resolved 6. Anemia 7. 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 Left upper back and hip necrotic ulcer post debridement PLAN: 1. Psychiatry input, neurology f/u, HCT pending 2. Wound care, plan for wound vac placement left hip 3. DVT prophylaxis, steroid taper with GI prophylaxis
[2017-03-17] MEDS ORDERED: LACTATED RINGERS SOLUTION 1,000 ML IV SCH (11:15)
--- NOTE | 2017-03-17 12:24 | PN ---
Progress Note, Physician History of Present Illness: doing well no issues - Current Medication List Current Medications: Active Medications Acetaminophen (Tylenol -) 650 mg PO Q6H PRN PRN Reason: FEVER OR PAIN Last Admin: 03/16/17 20:15 Dose: 650 mg Alprazolam (Xanax -) 0.25 mg PO Q8H PRN PRN Reason: ANXIETY Last Admin: 03/15/17 18:34 Dose: 0.25 mg Bacitracin (Bacitracin -) 1 applic TP BID [facility] Last Admin: 03/17/17 09:19 Dose: 1 applic Collagenase (Santyl -) 1 applic TP DAILY [facility] Last Admin: 03/17/17 09:18 Dose: Not Given Diazepam (Valium -) 10 mg PO HS [facility] Last Admin: 03/16/17 21:35 Dose: 10 mg Docusate Sodium (Colace -) 100 mg PO HS [facility] Last Admin: 03/16/17 21:32 Dose: 100 mg Enoxaparin Sodium (Lovenox -) 40 mg SQ DAILY [facility] Last Admin: 03/17/17 09:17 Dose: 40 mg Hydromorphone HCl (Dilaudid Injection -) 1 mg IVPB Q3H PRN PRN Reason: PAIN Last Admin: 03/17/17 08:13 Dose: 1 mg Ceftriaxone Sodium 1 gm/ (Dextrose) 100 mls @ 100 mls/hr IVPB DAILY [facility] Last Admin: 03/17/17 09:16 Dose: 100 mls/hr Lactated Ringer's (Lactated Ringers Solution) 1,000 mls @ 75 mls/hr IV ASDIR [facility] Stop: 03/18/17 00:34 Morphine Sulfate (Msir -) 15 mg PO Q4H PRN PRN Reason: PAIN Last Admin: 03/17/17 05:05 Dose: 15 mg Pantoprazole Sodium (Protonix -) 40 mg PO BID [facility] Last Admin: 03/17/17 09:50 Dose: 40 mg Potassium Chloride (K-Dur -) 40 meq PO DAILY [facility] Last Admin: 03/17/17 09:17 Dose: 40 meq Potassium Phos/Sodium Phos (Phos-Nak Packet -) 1 packet PO TID [facility] Last Admin: 03/17/17 05:05 Dose: 1 packet Prednisone (Deltasone -) 5 mg PO DAILY [facility] Last Admin: 03/17/17 09:17 Dose: 5 mg Risperidone (Risperdal -) 1 mg PO BID [facility] Last Admin: 03/17/17 09:17 Dose: 1 mg Zolpidem Tartrate (Ambien -) 5 mg PO HS PRN Last Admin: 03/16/17 23:29 Dose: 5 mg - Objective Vital Signs: Vital Signs Temperature 98.3 F 03/17/17 08:18 Pulse Rate 103 H 03/17/17 08:18 Respiratory Rate 20 03/17/17 08:18 Blood Pressure 141/87 03/17/17 08:18 O2 Sat by Pulse Oximetry (%) 100 03/17/17 09:00 Constitutional: Yes: No Distress, Calm Cardiovascular: Yes: Regular Rate and Rhythm Respiratory: Yes: Regular, CTA Bilaterally Gastrointestinal: Yes: Normal Bowel Sounds, Soft Musculoskeletal: Yes: Other Extremities: Yes: Other Wound/Incision: Yes: Dressing Dry and Intact Neurological: Yes: Alert, Oriented Psychiatric: Yes: Alert Labs: CBC, BMP 03/17/17 06:00 03/17/17 06:00 INR, PTT INR 1.20 (0.82-1.09) H 03/01/17 08:30 Assessment/Plan Problem List Problem List - Problems (1) TRENT (acute kidney injury) Assessment/Plan: CR WNL Code(s): N17.9 - ACUTE KIDNEY FAILURE, UNSPECIFIED (2) Anoxic brain injury Assessment/Plan: on [place] alert Code(s): G93.1 - ANOXIC BRAIN DAMAGE, NOT ELSEWHERE CLASSIFIED (3) Coma Assessment/Plan: awake and alert Code(s): R40.20 - UNSPECIFIED COMA Qualifiers: Coma depth: [place] coma 3-8 Coma timing: at arrival to emergency department Qualified Code(s): R40.2432 - [place] coma scale score 3-8, at arrival to emergency department; R40.2432 - [place] coma scale score 3-8, at arrival to emergency department; R40.2432 - [place] coma scale score 3-8, at arrival to emergency department (4) Overdose Assessment/Plan: reportedly pt is on pain meds per field map editor Code(s): T50.901A - POISONING BY UNSP DRUG/MEDS/BIOL SUBST, ACCIDENTAL, INIT Qualifiers: Encounter type: initial encounter Injury intent: undetermined intent Qualified Code(s): T50.904A - Poisoning by unspecified drugs, medicaments and biological substances, undetermined, initial encounter; T50.904A - Poisoning by unspecified drugs, medicaments and biological substances, undetermined, initial encounter (5) Polypharmacy Code(s): Z79.899 - 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 GRIPPER ATTACHER (CURRENT) DRUG THERAPY (6) Respiratory failure Assessment/Plan: on [place] Code(s): J96.90 - RESPIRATORY FAILURE, UNSP, UNSP W HYPOXIA OR HYPERCAPNIA Qualifiers: Chronicity: acute (7) Rhabdomyolysis Code(s): M62.82 - RHABDOMYOLYSIS (8) Unresponsive Code(s): R41.89 - OTH SYMPTOMS AND SIGNS W COGNITIVE FUNCTIONS AND AWARENESS (9) UTI (urinary tract infection) Code(s): N39.0 - URINARY TRACT INFECTION, SITE NOT SPECIFIED (10) Lupus (systemic lupus erythematosus) Assessment/Plan: will get wound care involved for skin wounds Code(s): M32.9 - SYSTEMIC LUPUS ERYTHEMATOSUS, UNSPECIFIED (11) Myopathy Code(s): G72.9 - MYOPATHY, UNSPECIFIED asp pna leukocytosis uti plan continues to improve rest as per primary
--- NOTE | 2017-03-17 12:35 | RAPID ---
Physical Examination Vital Signs: Vital Signs Temperature 98.3 F 03/17/17 08:18 Pulse Rate 103 H 03/17/17 08:18 Respiratory Rate 20 03/17/17 08:18 Blood Pressure 141/87 03/17/17 08:18 O2 Sat by Pulse Oximetry (%) 100 03/17/17 09:00 Constitutional: Yes: Other (non-responsive, non-verbal) Eyes: Yes: Conjunctiva Clear, PERRL HENT: Yes: WNL, Atraumatic, Normocephalic. No: Drooling Neck: Yes: WNL Cardiovascular: Yes: Tachycardia, S1, S2. No: Murmur Extremities: Yes: WNL Neurological: Yes: Other (non-verbal, following few commands, VINCENT, strength diffusely decreased, no FNDs appreciated) Labs: CBC, BMP 03/17/17 06:00 03/17/17 06:00 Rapid Response - Rapid Response Assessment: Rapid response called for this 46F w/ a hx of lupus, CKD, and anemia who presented on this admission with sepsis, catatonia, respiratory failure, persistent toxic metabolic encephalopathy, and possible drug overdose due to pt being non-verbal as per nurse. According to nurse, last known well was 45 minutes prior and she was AAOx3 with normal behavior. Nurse reports that she administered 1mg dilaudid at 8am. Pt was found lying in bed, non-verbal. Her BP was 164/68 with a HR of 106. She was diffusely weak, squeezed hands of MD with minimal strength, when arms were raised above head, they fell slowly and did not hit head. Pupils were normal in size and reactive to light, eyes were open and staring into space. Biceps reflex and knee jerk reflexes were 2+. No shaking, urinary or bowel incontinence was found. Exam was limited. A stat CT head, EKG, EEG, urine tox, prolactin, calcium, and magnesium were ordered, and a stroke code was initiated. Dr. Vivar and Dr. Darby were called (Dr. Moreno covering). Dr. Moreno responded, agreed with our workup, and recommended that the etiology can be infection vs. hypotension vs. hypoglycemia vs. new onset seizure. At 12:45 pm, pt was re-evaluated. Her exam was considerably different. Pt was AAOx3, 3/5 motor strength in b/l biceps, triceps, and shoulder muscles. 2/5 strength in knee extension and flexion, increased right sided sensory function to touch compared to left side (resident appreciated increased left-sided sensory function), 2+ reflexes throughout; CN: VINCENT, EOMI intact, increased sensation on right side of face, facial muscles intact, hearing equal on both sides, able to shrug shoulders, able to stick out tongue which was midline, unable to see back of throat and evaluate for soft palate rise; pt able to perform [id number] test with right hand but not with left hand due to weakness. She only complained of leg pain, same severity as when admitted to hospital. Assessment: 46F w/ a hx of lupus, CKD, and anemia who presented on this admission with sepsis, catatonia, respiratory failure, persistent toxic metabolic encephalopathy, and possible drug overdose found this am to be non-verbal with global weakness but without any FNDs. CT head was normal, EKG showed NSR, and repeat exam showed a normal neuro exam with increased sensory function on right side. Etiology can be psychogenic given pt's hx of catatonia and other psych hx and rapid return to baseline. Other etiologies can be new onset seizure, infection (less likely as pt has no wbc count and no fever), hypotension (less likely as pt was hypertensive on exam), and hypoglycemia (glucose of 99 this am) . Plan: -f/u EEG -f/u Mg, ca -f/u urine tox -f/u prolactin -neuro consult -psych consult Critical Care Total Critical Care Time (in minutes): 90 Critical Care Statement: The care of this patient involved high complexity decision making to prevent further life threatening deterioration of the patient 's condition and/or to evaluate & treat vital organ system(s) failure or risk of failure.
[2017-03-17 13:19] LABS: CALCIUM 8.9 mg/dL (8.5-10.1); MAGNESIUM 1.7 mg/dL (1.8-2.4)
--- NOTE | 2017-03-17 16:58 | PN ---
Progress Note, Physician History of Present Illness: doing better - Current Medication List Current Medications: Active Medications Acetaminophen (Tylenol -) 650 mg PO Q6H PRN PRN Reason: FEVER OR PAIN Last Admin: 03/16/17 20:15 Dose: 650 mg Alprazolam (Xanax -) 0.25 mg PO Q8H PRN PRN Reason: ANXIETY Last Admin: 03/15/17 18:34 Dose: 0.25 mg Bacitracin (Bacitracin -) 1 applic TP BID [facility] Last Admin: 03/17/17 09:19 Dose: 1 applic Collagenase (Santyl -) 1 applic TP DAILY [facility] Last Admin: 03/17/17 09:18 Dose: Not Given Diazepam (Valium -) 10 mg PO HS [facility] Last Admin: 03/16/17 21:35 Dose: 10 mg Docusate Sodium (Colace -) 100 mg PO HS [facility] Last Admin: 03/16/17 21:32 Dose: 100 mg Enoxaparin Sodium (Lovenox -) 40 mg SQ DAILY [facility] Last Admin: 03/17/17 09:17 Dose: 40 mg Hydromorphone HCl (Dilaudid Injection -) 1 mg IVPB Q3H PRN PRN Reason: PAIN Last Admin: 03/17/17 08:13 Dose: 1 mg Ceftriaxone Sodium 1 gm/ (Dextrose) 100 mls @ 100 mls/hr IVPB DAILY [facility] Last Admin: 03/17/17 09:16 Dose: 100 mls/hr Lactated Ringer's (Lactated Ringers Solution) 1,000 mls @ 75 mls/hr IV ASDIR [facility] Stop: 03/18/17 00:34 Last Admin: 03/17/17 13:08 Dose: 75 mls/hr Morphine Sulfate (Msir -) 15 mg PO Q4H PRN PRN Reason: PAIN Last Admin: 03/17/17 05:05 Dose: 15 mg Pantoprazole Sodium (Protonix -) 40 mg PO BID [facility] Last Admin: 03/17/17 09:50 Dose: 40 mg Potassium Chloride (K-Dur -) 40 meq PO DAILY [facility] Last Admin: 03/17/17 09:17 Dose: 40 meq Potassium Phos/Sodium Phos (Phos-Nak Packet -) 1 packet PO TID [facility] Last Admin: 03/17/17 13:52 Dose: 1 packet Prednisone (Deltasone -) 5 mg PO DAILY [facility] Last Admin: 03/17/17 09:17 Dose: 5 mg Risperidone (Risperdal -) 1 mg PO BID [facility] Last Admin: 03/17/17 09:17 Dose: 1 mg Zolpidem Tartrate (Ambien -) 5 mg PO HS [facility]N Last Admin: 03/16/17 23:29 Dose: 5 mg - Objective Vital Signs: Vital Signs Temperature 98 F 03/17/17 14:39 Pulse Rate 112 H 03/17/17 14:39 Respiratory Rate 20 03/17/17 14:39 Blood Pressure 130/76 03/17/17 14:39 O2 Sat by Pulse Oximetry (%) 100 03/17/17 09:00 Constitutional: Yes: No Distress HENT: Yes: Atraumatic Neck: Yes: Supple Cardiovascular: Yes: Regular Rate and Rhythm Respiratory: Yes: CTA Bilaterally Musculoskeletal: Yes: Other (decub ulcer left hip, left side of chest, left malleolus) Extremities: Yes: WNL Labs: CBC, BMP 03/17/17 06:00 03/17/17 06:00 INR, PTT INR 1.20 (0.82-1.09) H 03/01/17 08:30 Problem List - Problems (1) TRENT (acute kidney injury) Assessment/Plan: CR WNL Code(s): N17.9 - ACUTE KIDNEY FAILURE, UNSPECIFIED (2) Anoxic brain injury Assessment/Plan: on [place] alert Code(s): G93.1 - ANOXIC BRAIN DAMAGE, NOT ELSEWHERE CLASSIFIED (3) Coma Assessment/Plan: awake and alert Code(s): R40.20 - UNSPECIFIED COMA Qualifiers: Coma depth: [place] coma 3-8 Coma timing: at arrival to emergency department Qualified Code(s): R40.2432 - [place] coma scale score 3-8, at arrival to emergency department; R40.2432 - Rossy coma scale score 3-8, at arrival to emergency department; R40.2432 - Rossy coma scale score 3-8, at arrival to emergency department (4) Overdose Assessment/Plan: reportedly pt is on pain meds per restaurant hostess Code(s): T50.901A - POISONING BY UNSP DRUG/MEDS/BIOL SUBST, ACCIDENTAL, INIT Qualifiers: Encounter type: initial encounter Injury intent: undetermined intent Qualified Code(s): T50.904A - Poisoning by unspecified drugs, medicaments and biological substances, undetermined, initial encounter; T50.904A - Poisoning by unspecified drugs, medicaments and biological substances, undetermined, initial encounter (5) Polypharmacy Code(s): Z79.899 - 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 (6) Respiratory failure Assessment/Plan: on [place] Code(s): J96.90 - RESPIRATORY FAILURE, UNSP, UNSP W HYPOXIA OR HYPERCAPNIA Qualifiers: Chronicity: acute (7) Rhabdomyolysis Assessment/Plan: ivf resolved Code(s): M62.82 - RHABDOMYOLYSIS (8) Unresponsive Code(s): R41.89 - OTH SYMPTOMS AND SIGNS W COGNITIVE FUNCTIONS AND AWARENESS (9) UTI (urinary tract infection) Assessment/Plan: on abx Code(s): N39.0 - URINARY TRACT INFECTION, SITE NOT SPECIFIED (10) Lupus (systemic lupus erythematosus) Assessment/Plan: rhematology consult Code(s): M32.9 - SYSTEMIC LUPUS ERYTHEMATOSUS, UNSPECIFIED (11) Myopathy Code(s): G72.9 - MYOPATHY, UNSPECIFIED (12) Skin ulcer Assessment/Plan: wound care palstic surgery consult Code(s): L98.499 - NON-PRESSURE CHRONIC ULCER OF SKIN OF SITES W UNSP SEVERITY Qualifiers: Non-pressure ulcer stage: limited to breakdown of skin Qualified Code(s): L98.491 - Non-pressure chronic ulcer of skin of other sites limited to breakdown of skin; L98.491 - Non-pressure chronic ulcer of skin of other sites limited to breakdown of skin; L98.491 - Non-pressure chronic ulcer of skin of other sites limited to breakdown of skin; L98.491 - Non-pressure chronic ulcer of skin of other sites limited to breakdown of skin Assessment/Plan todays events noted
--- NOTE | 2017-03-17 18:34 | EKG ---
Test Reason : Blood Pressure : / mmHG Vent. Rate : 090 BPM Atrial Rate : 090 BPM P-R Int : 154 ms QRS Dur : 088 ms QT Int : 360 ms P-R-T Axes : 042 040 041 degrees QTc Int : 440 ms NORMAL SINUS RHYTHM NORMAL ECG WHEN COMPARED WITH ECG OF 26-FEB-2017 14:32, [place] INTERVAL HAS INCREASED Confirmed by DANIEL COSBY MD ([id number]) on 03/17/2017 6:34:05 PM Referred By: Heath ORTIZ Confirmed By:DANIEL COSBY MD
[2017-03-17] MEDS: DOCUSATE SODIUM 100 MG CAPSULE (FP) PO SCH (22:29)
[2017-03-17] MEDS: diazePAM 5 MG TABLET PO SCH (22:29)
[2017-03-18 01:15] LABS: URINE MARIJUANA THC NEGATIVE ng/ml (CUTOFF=50)
[2017-03-18] MEDS: NAPH,MB-DB/K PH,MBDB POWDER PACKET PO SCH ×3 (06:18→22:36)
[2017-03-18] MEDS ORDERED: PT OWN MED DRAWER 7, Y5N ONE ×2 (09:07→22:26)
[2017-03-18] MEDS ORDERED: cefTRIAXone SODIUM 1 GM VIAL ONE (09:07)
[2017-03-18] MEDS ORDERED: DEXTROSE 5%-WATER 100 ML IVPB ONE (09:08)
[2017-03-18] MEDS: ENOXAPARIN NA (PORCINE) 40 MG/0.4 ML DISP.SYRIN SQ SCH (09:15)
[2017-03-18] MEDS: risperiDONE 1 MG TABLET (FP) PO SCH ×2 (09:15→23:42)
[2017-03-18] MEDS: PANTOPRAZOLE 40 MG TABLET (FP) PO SCH ×2 (09:16→22:36)
[2017-03-18] MEDS: CEFTRIAXONE 1 GM in DEXTROSE 5%-WATER 100 ML IVPB SCH (09:16)
[2017-03-18] MEDS: POTASSIUM CHLORIDE TABS 20 MEQ TABLET.ER (FP) PO SCH (09:16)
[2017-03-18] MEDS: predniSONE 5 MG TABLET (UD) PO SCH (09:16)
[2017-03-18] MEDS: morphine SULFATE IMMEDIATE RELEASE 30 MG TAB PO PRN (09:17)
[2017-03-18] MEDS: BACITRACIN 15 GM TUBE TOPICAL OINTMENT TP SCH ×2 (09:56→22:36)
[2017-03-18] MEDS: COLLAGENASE CLOSTRIDIUM HIST. 30 GRAMS TUBE TP SCH (09:56)
--- NOTE | 2017-03-18 10:14 | PN ---
Progress Note, Physician History of Present Illness: Catotonia resolved, back to baseline. - Current Medication List Current Medications: Active Medications Acetaminophen (Tylenol -) 650 mg PO Q6H PRN PRN Reason: FEVER OR PAIN Last Admin: 03/16/17 20:15 Dose: 650 mg Alprazolam (Xanax -) 0.25 mg PO Q8H PRN PRN Reason: ANXIETY Last Admin: 03/15/17 18:34 Dose: 0.25 mg Bacitracin (Bacitracin -) 1 applic TP BID [facility] Last Admin: 03/18/17 09:56 Dose: 1 applic Collagenase (Santyl -) 1 applic TP DAILY [facility] Last Admin: 03/18/17 09:56 Dose: Not Given Diazepam (Valium -) 10 mg PO HS [facility] Last Admin: 03/17/17 22:29 Dose: 10 mg Docusate Sodium (Colace -) 100 mg PO HS [facility] Last Admin: 03/17/17 22:29 Dose: 100 mg Enoxaparin Sodium (Lovenox -) 40 mg SQ DAILY [facility] Last Admin: 03/18/17 09:15 Dose: 40 mg Hydromorphone HCl (Dilaudid Injection -) 1 mg IVPB Q3H PRN PRN Reason: PAIN Last Admin: 03/17/17 17:09 Dose: 1 mg Ceftriaxone Sodium 1 gm/ (Dextrose) 100 mls @ 100 mls/hr IVPB DAILY [facility] Last Admin: 03/18/17 09:16 Dose: 100 mls/hr Morphine Sulfate (Msir -) 15 mg PO Q4H PRN PRN Reason: PAIN Last Admin: 03/18/17 09:17 Dose: 15 mg Pantoprazole Sodium (Protonix -) 40 mg PO BID [facility] Last Admin: 03/18/17 09:16 Dose: 40 mg Potassium Chloride (K-Dur -) 40 meq PO DAILY [facility] Last Admin: 03/18/17 09:16 Dose: 40 meq Potassium Phos/Sodium Phos (Phos-Nak Packet -) 1 packet PO TID [facility] Last Admin: 03/18/17 06:18 Dose: 1 packet Prednisone (Deltasone -) 5 mg PO DAILY [facility] Last Admin: 03/18/17 09:16 Dose: 5 mg Risperidone (Risperdal -) 1 mg PO BID [facility] Last Admin: 03/18/17 09:15 Dose: 1 mg Zolpidem Tartrate (Ambien -) 5 mg PO HS PRN Last Admin: 03/16/17 23:29 Dose: 5 mg - Objective Vital Signs: Vital Signs Temperature 98.1 F 03/18/17 06:00 Pulse Rate 113 H 03/18/17 08:43 Respiratory Rate 20 03/18/17 08:43 Blood Pressure 119/85 03/18/17 08:43 O2 Sat by Pulse Oximetry (%) 100 03/17/17 20:53 Constitutional: Yes: No Distress, Calm, Thin Neck: Yes: Supple Cardiovascular: Yes: Regular Rate and Rhythm Respiratory: Yes: Regular, CTA Bilaterally Gastrointestinal: Yes: Normal Bowel Sounds, Soft Edema: No Labs: CBC, BMP 03/17/17 06:00 03/17/17 06:00 INR, PTT INR 1.20 (0.82-1.09) H 03/01/17 08:30 - ....Imaging EKG: Report Reviewed (NSR @ [address]-T changes) Problem List - Problems (1) Overdose Code(s): T50.901A - POISONING BY UNSP DRUG/MEDS/BIOL SUBST, ACCIDENTAL, INIT Qualifiers: Encounter type: initial encounter Injury intent: undetermined intent Qualified Code(s): T50.904A - Poisoning by unspecified drugs, medicaments and biological substances, undetermined, initial encounter; T50.904A - Poisoning by unspecified drugs, medicaments and biological substances, undetermined, initial encounter (2) Respiratory failure Code(s): J96.90 - RESPIRATORY FAILURE, UNSP, UNSP W HYPOXIA OR HYPERCAPNIA Qualifiers: Chronicity: acute (3) Aspiration pneumonia Code(s): J69.0 - PNEUMONITIS DUE TO INHALATION OF FOOD AND VOMIT Qualifiers: Aspiration pneumonia type: due to vomit Lung location: unspecified part of lung (4) Lupus (systemic lupus erythematosus) Code(s): M32.9 - SYSTEMIC LUPUS ERYTHEMATOSUS, UNSPECIFIED (5) Anemia Code(s): D64.9 - ANEMIA, UNSPECIFIED Qualifiers: Anemia type: unspecified type Qualified Code(s): D64.9 - Anemia, unspecified; D64.9 - Anemia, unspecified (6) Skin ulcer Code(s): L98.499 - NON-PRESSURE CHRONIC ULCER OF SKIN OF SITES W UNSP SEVERITY Qualifiers: Non-pressure ulcer stage: limited to breakdown of skin Qualified Code(s): L98.491 - Non-pressure chronic ulcer of skin of other sites limited to breakdown of skin; L98.491 - Non-pressure chronic ulcer of skin of other sites limited to breakdown of skin; L98.491 - Non-pressure chronic ulcer of skin of other sites limited to breakdown of skin; L98.491 - Non-pressure chronic ulcer of skin of other sites limited to breakdown of skin (7) Catatonia Code(s): F06.1 - CATATONIC DISORDER DUE TO KNOWN PHYSIOLOGICAL CONDITION Assessment/Plan 1. Catatonia 2. Post acute respiratory failure, persistent toxic metabolic encephalopathy, possible drug overdose 3. Sepsis syndrome, resolved 4. History of Lupus 5. Acute on chronic renal insufficiency, pre-renal azotemia, resolved 6. Anemia 7. 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 Left upper back and hip necrotic ulcer post debridement PLAN: 1. Psychiatry input, neurology f/u, HCT negative for acute changes 2. Abx, wound care, plan for wound vac placement left hip 3. DVT prophylaxis, steroid taper with GI prophylaxis
[2017-03-18] MEDS: ALPRAZolam 0.25 MG TABLET PO PRN (10:31)
[2017-03-18] MEDS: ACETAMINOPHEN 325 MG TABLET (FP) PO PRN (15:30)
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
--- NOTE | 2017-03-18 19:48 | PN ---
Progress Note, Physician History of Present Illness: doing better - Current Medication List Current Medications: Active Medications Acetaminophen (Tylenol -) 650 mg PO Q6H PRN PRN Reason: FEVER OR PAIN Last Admin: 03/18/17 15:30 Dose: 650 mg Bacitracin (Bacitracin -) 1 applic TP BID [facility] Last Admin: 03/18/17 09:56 Dose: 1 applic Collagenase (Santyl -) 1 applic TP DAILY [facility] Last Admin: 03/18/17 09:56 Dose: Not Given Diazepam (Valium -) 10 mg PO HS [facility] Last Admin: 03/17/17 22:29 Dose: 10 mg Docusate Sodium (Colace -) 100 mg PO HS [facility] Last Admin: 03/17/17 22:29 Dose: 100 mg Enoxaparin Sodium (Lovenox -) 40 mg SQ DAILY [facility] Last Admin: 03/18/17 09:15 Dose: 40 mg Hydromorphone HCl (Dilaudid Injection -) 1 mg IVPB Q3H PRN PRN Reason: PAIN Last Admin: 03/17/17 17:09 Dose: 1 mg Ceftriaxone Sodium 1 gm/ (Dextrose) 100 mls @ 100 mls/hr IVPB DAILY [facility] Last Admin: 03/18/17 09:16 Dose: 100 mls/hr Pantoprazole Sodium (Protonix -) 40 mg PO BID [facility] Last Admin: 03/18/17 09:16 Dose: 40 mg Polyethylene Glycol (Miralax (For Daily Use) -) 17 gm PO BID [facility] Potassium Chloride (K-Dur -) 40 meq PO DAILY [facility] Last Admin: 03/18/17 09:16 Dose: 40 meq Potassium Phos/Sodium Phos (Phos-Nak Packet -) 1 packet PO TID [facility] Last Admin: 03/18/17 14:55 Dose: 1 packet Prednisone (Deltasone -) 5 mg PO DAILY [facility] Last Admin: 03/18/17 09:16 Dose: 5 mg Risperidone (Risperdal -) 1 mg PO BID [facility] Last Admin: 03/18/17 09:15 Dose: 1 mg - Objective Vital Signs: Vital Signs Temperature 98.6 F 03/18/17 19:39 Pulse Rate 100 H 03/18/17 19:39 Respiratory Rate 20 03/18/17 19:39 Blood Pressure 104/73 03/18/17 19:39 O2 Sat by Pulse Oximetry (%) 100 10/08/17 09:00 Constitutional: Yes: No Distress HENT: Yes: Atraumatic Neck: Yes: Supple Cardiovascular: Yes: Regular Rate and Rhythm Respiratory: Yes: Rhonchi Gastrointestinal: Yes: Normal Bowel Sounds Extremities: Yes: WNL Neurological: Yes: Alert, Oriented Labs: CBC, BMP 03/17/17 06:00 03/17/17 06:00 INR, PTT INR 1.20 (0.82-1.09) H 03/01/17 08:30 Problem List - Problems (1) TRENT (acute kidney injury) Assessment/Plan: CR WNL Code(s): N17.9 - ACUTE KIDNEY FAILURE, UNSPECIFIED (2) Anoxic brain injury Assessment/Plan: on NC alert and oriented Code(s): G93.1 - ANOXIC BRAIN DAMAGE, NOT ELSEWHERE CLASSIFIED (3) Coma Assessment/Plan: awake and alert Code(s): R40.20 - UNSPECIFIED COMA Qualifiers: Coma depth: Rossy coma 3-8 Coma timing: at arrival to emergency department Qualified Code(s): R40.2432 - Rossy coma scale score 3-8, at arrival to emergency department; R40.2432 - [place] coma scale score 3-8, at arrival to emergency department; R40.2432 - Rossy coma scale score 3-8, at arrival to emergency department (4) Overdose Assessment/Plan: reportedly pt is on pain meds per biology adjunct instructor Code(s): T50.901A - POISONING BY UNSP DRUG/MEDS/BIOL SUBST, ACCIDENTAL, INIT Qualifiers: Encounter type: initial encounter Injury intent: undetermined intent Qualified Code(s): T50.904A - Poisoning by unspecified drugs, medicaments and biological substances, undetermined, initial encounter; T50.904A - Poisoning by unspecified drugs, medicaments and biological substances, undetermined, initial encounter (5) Polypharmacy Code(s): Z79.899 - OTHER CORRECTION (CURRENT) DRUG THERAPY (6) Respiratory failure Assessment/Plan: on NC Code(s): J96.90 - RESPIRATORY FAILURE, UNSP, UNSP W HYPOXIA OR HYPERCAPNIA Qualifiers: Chronicity: acute (7) Rhabdomyolysis Code(s): M62.82 - RHABDOMYOLYSIS (8) Unresponsive Code(s): R41.89 - OTH SYMPTOMS AND SIGNS W COGNITIVE FUNCTIONS AND AWARENESS (9) UTI (urinary tract infection) Assessment/Plan: not on abx anymore id on board cxs noted Code(s): N39.0 - URINARY TRACT INFECTION, SITE NOT SPECIFIED (10) Lupus (systemic lupus erythematosus) Assessment/Plan: wound care daily will get plastic surgery consult Code(s): M32.9 - SYSTEMIC LUPUS ERYTHEMATOSUS, UNSPECIFIED (11) Myopathy Assessment/Plan: pt able to walk few steps with walker Code(s): G72.9 - MYOPATHY, UNSPECIFIED (12) Skin ulcer Assessment/Plan: wound care palstic surgery consult Code(s): L98.499 - NON-PRESSURE CHRONIC ULCER OF SKIN OF SITES W UNSP SEVERITY Qualifiers: Non-pressure ulcer stage: limited to breakdown of skin Qualified Code(s): L98.491 - Non-pressure chronic ulcer of skin of other sites limited to breakdown of skin; L98.491 - Non-pressure chronic ulcer of skin of other sites limited to breakdown of skin; L98.491 - Non-pressure chronic ulcer of skin of other sites limited to breakdown of skin; L98.491 - Non-pressure chronic ulcer of skin of other sites limited to breakdown of skin
[2017-03-18] MEDS: DOCUSATE SODIUM 100 MG CAPSULE (FP) PO SCH (22:35)
[2017-03-18] MEDS: diazePAM 5 MG TABLET PO SCH (22:36)
[2017-03-18] MEDS: POLYETHYLENE GLYCOL 3350 119 GM BTL PO SCH (23:39)
[2017-03-18] MEDS: ZOLPIDEM TARTRATE 5 MG TABLET PO PRN (23:39)
[2017-03-19] MEDS: HYDROmorphone HCL CARPU-JECT 1 MG/1 ML DISP.SYRIN IVPB PRN ×2 (04:48→13:50)
[2017-03-19] MEDS: NAPH,MB-DB/K PH,MBDB POWDER PACKET PO SCH ×3 (05:55→21:46)
[2017-03-19 07:58] LABS: BASOPHIL 0.9 % (0-2.0); MCH 23.7 pg (25.7-33.7); MCHC 31.2 g/dl (32.0-36.0); MEAN CELL VOLUME 75.8 fl (80-96); MEAN PLT VOLUME 9.8 fl (7.5-11.1); PLATELET COUNT 240 K/MM3 (134-434); RDW 26.5 % (11.6-15.6); WHITE BLOOD COUNT 3.9 K/mm3 (4.0-10.0)
[2017-03-19 08:38] LABS: ALBUMIN 2.9 g/dl (3.4-5.0); ANION GAP 10 (8-16); CALCIUM 8.5 mg/dL (8.5-10.1); CO2 27 mmol/L (21-32); CREATININE 0.6 mg/dL (0.55-1.02); GLUCOSE,RANDOM 126 mg/dL (74-106); SGOT/AST 17 U/L (15-37); SGPT/ALT 20 U/L (12-78)
[2017-03-19 08:39] LABS: ALK PHOS 47 U/L (45-117); BILIRUBIN,TOTAL 0.4 mg/dL (0.2-1.0); TOT PROT 5.9 g/dl (6.4-8.2)
--- NOTE | 2017-03-19 09:42 | PN ---
Progress Note (short form) - Note Progress Note: Neurology History of Present Illness 46 year old female presented to ER completely unresponsive, Rossy coma scale of 3, who was "found down" possibly for several days and last known well two days prior to admission. Found in her own urine and feces without explanation of why. Concern for airway protection and ER intubated and put on mechanical ventilation in the ER. CT head completed and did not show acute changes. UTox positive for benzo, barbiturates, and opiods. Also with WBC of 18. Concern for drug overdose, was in ICU in close monitoring, eventually extubated and downgraded to telemetry. Has been more awake, alert, responsive, tracking examiner, conversive. Able to tell me she is in the hospital, the date, name of President. CT head repeated and did not show acute changes. EMG showed critical illness myopathy which appears to have improved. Over the weekend, notes indicate cataonia. She had rapid response, Dr. Moreno covered, patient improved immediately, no residual issues. CT head reviewed and without acute changes. She is moving extremities over head without difficulty, awaiting placement to SNF. Active Medications Acetaminophen (Tylenol -) 650 mg PO Q6H PRN PRN Reason: FEVER OR PAIN Last Admin: 03/18/17 15:30 Dose: 650 mg Bacitracin (Bacitracin -) 1 applic TP BID [facility] Last Admin: 03/18/17 22:36 Dose: 1 applic Collagenase (Santyl -) 1 applic TP DAILY [facility] Last Admin: 03/18/17 09:56 Dose: Not Given Diazepam (Valium -) 10 mg PO HS [facility] Last Admin: 03/18/17 22:36 Dose: 10 mg Docusate Sodium (Colace -) 100 mg PO HS [facility] Last Admin: 03/18/17 22:35 Dose: 100 mg Enoxaparin Sodium (Lovenox -) 40 mg SQ DAILY [facility] Last Admin: 03/18/17 09:15 Dose: 40 mg Hydromorphone HCl (Dilaudid Injection -) 1 mg IVPB Q3H PRN PRN Reason: PAIN Last Admin: 03/19/17 04:48 Dose: 1 mg Ceftriaxone Sodium 1 gm/ (Dextrose) 100 mls @ 100 mls/hr IVPB DAILY [facility] Last Admin: 03/18/17 09:16 Dose: 100 mls/hr Pantoprazole Sodium (Protonix -) 40 mg PO BID [facility] Last Admin: 03/18/17 22:36 Dose: 40 mg Polyethylene Glycol (Miralax (For Daily Use) -) 17 gm PO BID [facility] Last Admin: 03/18/17 23:39 Dose: 17 gm Potassium Chloride (K-Dur -) 40 meq PO DAILY [facility] Last Admin: 03/18/17 09:16 Dose: 40 meq Potassium Phos/Sodium Phos (Phos-Nak Packet -) 1 packet PO TID [facility] Last Admin: 03/19/17 05:55 Dose: 1 packet Prednisone (Deltasone -) 5 mg PO DAILY [facility] Last Admin: 03/18/17 09:16 Dose: 5 mg Risperidone (Risperdal -) 1 mg PO BID [facility] Last Admin: 03/18/17 23:42 Dose: Not Given Zolpidem Tartrate (Ambien -) 5 mg PO HS [facility] Last Admin: 03/18/17 23:39 Dose: 5 mg *Physical Exam Vital Signs Temperature 98.6 F 03/19/17 05:46 Pulse Rate 99 H 03/19/17 05:46 Respiratory Rate 18 03/19/17 05:46 Blood Pressure 113/66 03/19/17 05:46 O2 Sat by Pulse Oximetry (%) 100 03/18/17 21:00 Awake, tracking examiner, verbal and cooperative, conversive, maintains attention Squeezing hand to command, raising arms or legs to command, moving b/l UE with full range of motion No hemiparesis Intact to tactile stimulation Finger to nose intact Lungs sounds mechanical RRR Abdomen soft Gait deferred CBCD WBC 3.9 K/mm3 (4.0-10.0) L 03/19/17 07:00 RBC 3.93 M/mm3 (3.60-5.2) 03/19/17 07:00 Hgb 9.3 GM/dL (10.7-15.3) L 03/19/17 07:00 Hct 29.8 % (32.4-45.2) L 03/19/17 07:00 MCV 75.8 fl (80-96) L 03/19/17 07:00 MCHC 31.2 g/dl (32.0-36.0) L 03/19/17 07:00 RDW 26.5 % (11.6-15.6) H 03/19/17 07:00 Plt Count 240 K/MM3 (134-434) 03/19/17 07:00 MPV 9.8 fl (7.5-11.1) 03/19/17 07:00 CMP Sodium 141 mmol/L (136-145) 03/19/17 07:00 Potassium 3.8 mmol/L (3.5-5.1) 03/19/17 07:00 Chloride 104 mmol/L (98-107) 03/19/17 07:00 Carbon Dioxide 27 mmol/L (21-32) 03/19/17 07:00 Anion Gap 10 (8-16) 03/19/17 07:00 BUN 3 mg/dL (7-18) L D 03/19/17 07:00 Creatinine 0.6 mg/dL (0.55-1.02) 03/19/17 07:00 Creat Clearance w eGFR > 60 (>60) 03/19/17 07:00 Calcium 8.5 mg/dL (8.5-10.1) 03/19/17 07:00 Total Bilirubin 0.4 mg/dL (0.2-1.0) 03/19/17 07:00 AST 17 U/L (15-37) 03/19/17 07:00 ALT 20 U/L (12-78) 03/19/17 07:00 Alkaline Phosphatase 47 U/L (45-117) 03/19/17 07:00 Total Protein 5.9 g/dl (6.4-8.2) L 03/19/17 07:00 Albumin 2.9 g/dl (3.4-5.0) L 03/19/17 07:00 CT head repeat reviewed Plan: 46 year old female presented to ER completely unresponsive, Rossy coma scale of 3, who was "found down" possibly for several days and last known well two days ago. Found in her own urine and feces without explanation of why. Concern for airway protection and ER intubated and put on mechanical ventilation, improved, has been on floor status. CT head completed and did not show acute changes. Repeat CT head without acute changes UTox positive for benzo, barbiturates, and opiods. Likely drug overdose Hydration as needed Weaned from mechanical vent, comfortable on room air No evidence of seizures Mental status improved, possibly at baseline Critical illness myopathy on EMG, strength improved Neurologically stable Planned for SNF
--- NOTE | 2017-03-19 09:46 | PN ---
Progress Note, Physician History of Present Illness: Catotonia resolved, back to baseline. - Current Medication List Current Medications: Active Medications Acetaminophen (Tylenol -) 650 mg PO Q6H PRN PRN Reason: FEVER OR PAIN Last Admin: 03/18/17 15:30 Dose: 650 mg Bacitracin (Bacitracin -) 1 applic TP BID [facility] Last Admin: 03/18/17 22:36 Dose: 1 applic Collagenase (Santyl -) 1 applic TP DAILY [facility] Last Admin: 03/18/17 09:56 Dose: Not Given Diazepam (Valium -) 10 mg PO HS [facility] Last Admin: 03/18/17 22:36 Dose: 10 mg Docusate Sodium (Colace -) 100 mg PO HS [facility] Last Admin: 03/18/17 22:35 Dose: 100 mg Enoxaparin Sodium (Lovenox -) 40 mg SQ DAILY [facility] Last Admin: 03/18/17 09:15 Dose: 40 mg Hydromorphone HCl (Dilaudid Injection -) 1 mg IVPB Q3H PRN PRN Reason: PAIN Last Admin: 03/19/17 04:48 Dose: 1 mg Ceftriaxone Sodium 1 gm/ (Dextrose) 100 mls @ 100 mls/hr IVPB DAILY [facility] Last Admin: 03/18/17 09:16 Dose: 100 mls/hr Pantoprazole Sodium (Protonix -) 40 mg PO BID [facility] Last Admin: 03/18/17 22:36 Dose: 40 mg Polyethylene Glycol (Miralax (For Daily Use) -) 17 gm PO BID [facility] Last Admin: 03/18/17 23:39 Dose: 17 gm Potassium Chloride (K-Dur -) 40 meq PO DAILY [facility] Last Admin: 03/18/17 09:16 Dose: 40 meq Potassium Phos/Sodium Phos (Phos-Nak Packet -) 1 packet PO TID [facility] Last Admin: 03/19/17 05:55 Dose: 1 packet Prednisone (Deltasone -) 5 mg PO DAILY [facility] Last Admin: 03/18/17 09:16 Dose: 5 mg Risperidone (Risperdal -) 1 mg PO BID [facility] Last Admin: 03/18/17 23:42 Dose: Not Given Zolpidem Tartrate (Ambien -) 5 mg PO HS PRN Last Admin: 03/18/17 23:39 Dose: 5 mg - Objective Vital Signs: Vital Signs Temperature 98.6 F 10/09/17 05:46 Pulse Rate 99 H 03/19/17 05:46 Respiratory Rate 18 03/19/17 05:46 Blood Pressure 113/66 03/19/17 05:46 O2 Sat by Pulse Oximetry (%) 100 03/18/17 21:00 Constitutional: Yes: No Distress, Calm, Thin Neck: Yes: Supple Cardiovascular: Yes: Regular Rate and Rhythm Respiratory: Yes: Regular, CTA Bilaterally Gastrointestinal: Yes: Normal Bowel Sounds, Soft Edema: No Labs: CBC, BMP 03/19/17 07:00 03/19/17 07:00 INR, PTT INR 1.20 (0.82-1.09) H 03/01/17 08:30 Problem List - Problems (1) Overdose Code(s): T50.901A - POISONING BY UNSP DRUG/MEDS/BIOL SUBST, ACCIDENTAL, INIT Qualifiers: Encounter type: initial encounter Injury intent: undetermined intent Qualified Code(s): T50.904A - Poisoning by unspecified drugs, medicaments and biological substances, undetermined, initial encounter; T50.904A - Poisoning by unspecified drugs, medicaments and biological substances, undetermined, initial encounter (2) Respiratory failure Code(s): J96.90 - RESPIRATORY FAILURE, UNSP, UNSP W HYPOXIA OR HYPERCAPNIA Qualifiers: Chronicity: acute (3) Aspiration pneumonia Code(s): J69.0 - PNEUMONITIS DUE TO INHALATION OF FOOD AND VOMIT Qualifiers: Aspiration pneumonia type: due to vomit Lung location: unspecified part of lung (4) Lupus (systemic lupus erythematosus) Code(s): M32.9 - SYSTEMIC LUPUS ERYTHEMATOSUS, UNSPECIFIED (5) Anemia Code(s): D64.9 - ANEMIA, UNSPECIFIED Qualifiers: Anemia type: unspecified type Qualified Code(s): D64.9 - Anemia, unspecified; D64.9 - Anemia, unspecified (6) Skin ulcer Code(s): L98.499 - NON-PRESSURE CHRONIC ULCER OF SKIN OF SITES W UNSP SEVERITY Qualifiers: Non-pressure ulcer stage: limited to breakdown of skin Qualified Code(s): L98.491 - Non-pressure chronic ulcer of skin of other sites limited to breakdown of skin; L98.491 - Non-pressure chronic ulcer of skin of other sites limited to breakdown of skin; L98.491 - Non-pressure chronic ulcer of skin of other sites limited to breakdown of skin; L98.491 - Non-pressure chronic ulcer of skin of other sites limited to breakdown of skin (7) Catatonia Code(s): F06.1 - CATATONIC DISORDER DUE TO KNOWN PHYSIOLOGICAL CONDITION Assessment/Plan 1. Catatonia 2. Post acute respiratory failure, persistent toxic metabolic encephalopathy, possible drug overdose 3. Sepsis syndrome, resolved 4. History of Lupus 5. Acute on chronic renal insufficiency, pre-renal azotemia, resolved 6. Anemia 7. 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 Left upper back and hip necrotic ulcer post debridement PLAN: 1. Psychiatry and neurology inputs appreciated, HCT negative for acute changes 2. Abx, wound care, plan for wound vac placement left hip 3. DVT prophylaxis, steroid taper with GI prophylaxis
[2017-03-19] MEDS ORDERED: cefTRIAXone SODIUM 1 GM VIAL ONE ×2 (10:10→11:23)
[2017-03-19] MEDS ORDERED: DEXTROSE 5%-WATER 100 ML IVPB ONE (10:10)
[2017-03-19] MEDS ORDERED: PT OWN MED DRAWER 7, Y5N ONE ×2 (10:10→21:39)
[2017-03-19] MEDS: PANTOPRAZOLE 40 MG TABLET (FP) PO SCH ×2 (11:20→21:46)
[2017-03-19] MEDS: predniSONE 5 MG TABLET (UD) PO SCH (11:20)
[2017-03-19] MEDS: POTASSIUM CHLORIDE TABS 20 MEQ TABLET.ER (FP) PO SCH (11:21)
[2017-03-19] MEDS: COLLAGENASE CLOSTRIDIUM HIST. 30 GRAMS TUBE TP SCH (11:23)
[2017-03-19] MEDS: CEFTRIAXONE 1 GM in DEXTROSE 5%-WATER 100 ML IVPB SCH (11:24)
[2017-03-19] MEDS: ENOXAPARIN NA (PORCINE) 40 MG/0.4 ML DISP.SYRIN SQ SCH (11:44)
[2017-03-19] MEDS: risperiDONE 1 MG TABLET (FP) PO SCH ×2 (12:25→21:45)
--- NOTE | 2017-03-19 12:37 | PN ---
Progress Note (short form) - Note Progress Note: Resting in NAD. Overall appears much better. Intake & Output 03/16/17 03/17/17 03/18/17 03/19/17 23:59 23:59 23:59 23:59 Intake Total 1245 3000 900 240 Balance 1245 3000 900 240 Last Vital Signs Temp Pulse Resp BP Pulse Ox 98.2 F 103 H 18 129/91 100 03/19/17 09:00 03/19/17 09:00 03/19/17 09:00 03/19/17 09:00 03/19/17 09:00 Active Medications Acetaminophen (Tylenol -) 650 mg PO Q6H PRN PRN Reason: FEVER OR PAIN Last Admin: 03/18/17 15:30 Dose: 650 mg Bacitracin (Bacitracin -) 1 applic TP BID [facility] Last Admin: 03/18/17 22:36 Dose: 1 applic Collagenase (Santyl -) 1 applic TP DAILY [facility] Last Admin: 03/19/17 11:23 Dose: Not Given Diazepam (Valium -) 10 mg PO HS [facility] Last Admin: 03/18/17 22:36 Dose: 10 mg Docusate Sodium (Colace -) 100 mg PO HS [facility] Last Admin: 03/18/17 22:35 Dose: 100 mg Enoxaparin Sodium (Lovenox -) 40 mg SQ DAILY [facility] Last Admin: 03/19/17 11:44 Dose: 40 mg Hydromorphone HCl (Dilaudid Injection -) 1 mg IVPB Q3H PRN PRN Reason: PAIN Last Admin: 03/19/17 04:48 Dose: 1 mg Ceftriaxone Sodium 1 gm/ (Dextrose) 100 mls @ 100 mls/hr IVPB DAILY [facility] Last Admin: 03/19/17 11:24 Dose: 100 mls/hr Pantoprazole Sodium (Protonix -) 40 mg PO BID [facility] Last Admin: 03/19/17 11:20 Dose: 40 mg Polyethylene Glycol (Miralax (For Daily Use) -) 17 gm PO BID [facility] Last Admin: 03/18/17 23:39 Dose: 17 gm Potassium Chloride (K-Dur -) 40 meq PO DAILY [facility] Last Admin: 03/19/17 11:21 Dose: 40 meq Potassium Phos/Sodium Phos (Phos-Nak Packet -) 1 packet PO TID [facility] Last Admin: 03/19/17 05:55 Dose: 1 packet Prednisone (Deltasone -) 5 mg PO DAILY [facility] Last Admin: 03/19/17 11:20 Dose: 5 mg Risperidone (Risperdal -) 1 mg PO BID [facility] Last Admin: 03/19/17 12:25 Dose: 1 mg Zolpidem Tartrate (Ambien -) 5 mg PO HS PRN Last Admin: 03/18/17 23:39 Dose: 5 mg Gen: NAD Heart: tachycardic, regular Lung: decreased breath sounds at the bases Abd: soft, nontender Ext: + edema Laboratory Results - last 24 hr 03/19/17 03/19/17 03/19/17 07:00 07:00 07:00 WBC 3.9 L RBC 3.93 Hgb 9.3 L Hct 29.8 L MCV 75.8 L MCH 23.7 L MCHC 31.2 L RDW 26.5 H Plt Count 240 MPV 9.8 Neutrophils % 54.0 Lymphocytes % 22.5 Monocytes % 19.6 H Eosinophils % 3.0 Basophils % 0.9 Sodium 141 Potassium 3.8 Chloride 104 Carbon Dioxide 27 Anion Gap 10 BUN 3 L D Creatinine 0.6 Creat Clearance w eGFR > 60 Random Glucose 126 H D Calcium 8.5 Total Bilirubin 0.4 AST 17 ALT 20 Alkaline Phosphatase 47 Creatine Kinase 42 Total Protein 5.9 L Albumin 2.9 L ASSESSMENT AND PLAN: Altered Mental Status improving but not at baseline Acute Respiratory Failure (?) Drug Overdose Acute Kidney Injury Lupus Hypernatremia improving - s/p empiric antibiotics - Home prednisone dose for her lupus - PO as tolerated / Aspiration precautions - DVT prophylaxis - rehab/PT Dr Chambers
--- NOTE | 2017-03-19 15:49 | PN ---
Progress Note, Physician History of Present Illness: doing better - Current Medication List Current Medications: Active Medications Acetaminophen (Tylenol -) 650 mg PO Q6H PRN PRN Reason: FEVER OR PAIN Last Admin: 03/18/17 15:30 Dose: 650 mg Bacitracin (Bacitracin -) 1 applic TP BID [facility] Last Admin: 03/18/17 22:36 Dose: 1 applic Collagenase (Santyl -) 1 applic TP DAILY [facility] Last Admin: 03/19/17 11:23 Dose: Not Given Diazepam (Valium -) 10 mg PO HS [facility] Last Admin: 03/18/17 22:36 Dose: 10 mg Docusate Sodium (Colace -) 100 mg PO HS [facility] Last Admin: 03/18/17 22:35 Dose: 100 mg Enoxaparin Sodium (Lovenox -) 40 mg SQ DAILY [facility] Last Admin: 03/19/17 11:44 Dose: 40 mg Hydromorphone HCl (Dilaudid Injection -) 1 mg IVPB Q3H PRN PRN Reason: PAIN Last Admin: 03/19/17 13:50 Dose: 1 mg CEFTRIAXONE 1 G/50 ML PREMIX (Ceftriaxone 1 Gm-D5w Bag) 50 mls @ 100 mls/hr IVPB DAILY [facility] Stop: 03/22/17 10:29 Pantoprazole Sodium (Protonix -) 40 mg PO BID [facility] Last Admin: 03/19/17 11:20 Dose: 40 mg Polyethylene Glycol (Miralax (For Daily Use) -) 17 gm PO BID [facility] Last Admin: 03/18/17 23:39 Dose: 17 gm Potassium Chloride (K-Dur -) 40 meq PO DAILY [facility] Last Admin: 03/19/17 11:21 Dose: 40 meq Potassium Phos/Sodium Phos (Phos-Nak Packet -) 1 packet PO TID [facility] Last Admin: 03/19/17 13:51 Dose: 1 packet Prednisone (Deltasone -) 5 mg PO DAILY [facility] Last Admin: 03/19/17 11:20 Dose: 5 mg Risperidone (Risperdal -) 1 mg PO BID [facility] Last Admin: 03/19/17 12:25 Dose: 1 mg Zolpidem Tartrate (Ambien -) 5 mg PO HS PRN Last Admin: 03/18/17 23:39 Dose: 5 mg - Objective Vital Signs: Vital Signs Temperature 98.4 F 03/19/17 14:18 Pulse Rate 102 H 03/19/17 14:18 Respiratory Rate 18 03/19/17 14:18 Blood Pressure 117/67 03/19/17 14:18 O2 Sat by Pulse Oximetry (%) 100 03/19/17 09:00 Constitutional: Yes: No Distress HENT: Yes: Atraumatic Neck: Yes: Supple Cardiovascular: Yes: Regular Rate and Rhythm Respiratory: Yes: CTA Bilaterally Gastrointestinal: Yes: Normal Bowel Sounds Extremities: Yes: WNL Neurological: Yes: Alert, Oriented Labs: CBC, BMP 03/19/17 07:00 03/19/17 07:00 INR, PTT INR 1.20 (0.82-1.09) H 03/01/17 08:30 Problem List - Problems (1) TRENT (acute kidney injury) Assessment/Plan: CR WNL Code(s): N17.9 - ACUTE KIDNEY FAILURE, UNSPECIFIED (2) Anoxic brain injury Assessment/Plan: on [place] alert and oriented Code(s): G93.1 - ANOXIC BRAIN DAMAGE, NOT ELSEWHERE CLASSIFIED (3) Coma Assessment/Plan: awake and alert Code(s): R40.20 - UNSPECIFIED COMA Qualifiers: Coma depth: [place] coma 3-8 Coma timing: at arrival to emergency department Qualified Code(s): R40.2432 - [place] coma scale score 3-8, at arrival to emergency department; R40.2432 - [place] coma scale score 3-8, at arrival to emergency department; R40.2432 - [place] coma scale score 3-8, at arrival to emergency department (4) Overdose Assessment/Plan: 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 Code(s): T50.901A - POISONING BY UNSP DRUG/MEDS/BIOL SUBST, ACCIDENTAL, INIT Qualifiers: Encounter type: initial encounter Injury intent: undetermined intent Qualified Code(s): T50.904A - Poisoning by unspecified drugs, medicaments and biological substances, undetermined, initial encounter; T50.904A - Poisoning by unspecified drugs, medicaments and biological substances, undetermined, initial encounter (5) Polypharmacy Code(s): Z79.899 - 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) DRUG THERAPY (6) Respiratory failure Assessment/Plan: on [place] Code(s): J96.90 - RESPIRATORY FAILURE, UNSP, UNSP W HYPOXIA OR HYPERCAPNIA Qualifiers: Chronicity: acute (7) Rhabdomyolysis Code(s): M62.82 - RHABDOMYOLYSIS (8) Unresponsive Code(s): R41.89 - OTH SYMPTOMS AND SIGNS W COGNITIVE FUNCTIONS AND AWARENESS (9) UTI (urinary tract infection) Code(s): N39.0 - URINARY TRACT INFECTION, SITE NOT SPECIFIED (10) Lupus (systemic lupus erythematosus) Assessment/Plan: wound care daily will get plastic surgery consult Code(s): M32.9 - SYSTEMIC LUPUS ERYTHEMATOSUS, UNSPECIFIED (11) Myopathy Code(s): G72.9 - MYOPATHY, UNSPECIFIED (12) Skin ulcer Code(s): L98.499 - NON-PRESSURE CHRONIC ULCER OF SKIN OF SITES W UNSP SEVERITY Qualifiers: Non-pressure ulcer stage: limited to breakdown of skin Qualified Code(s): L98.491 - Non-pressure chronic ulcer of skin of other sites limited to breakdown of skin; L98.491 - Non-pressure chronic ulcer of skin of other sites limited to breakdown of skin; L98.491 - Non-pressure chronic ulcer of skin of other sites limited to breakdown of skin; L98.491 - Non-pressure chronic ulcer of skin of other sites limited to breakdown of skin
--- NOTE | 2017-03-19 17:48 | PN ---
Progress Note, Physician History of Present Illness: doing well no complaints says she is doing great - Current Medication List Current Medications: Active Medications Acetaminophen (Tylenol -) 650 mg PO Q6H PRN PRN Reason: FEVER OR PAIN Last Admin: 03/18/17 15:30 Dose: 650 mg Bacitracin (Bacitracin -) 1 applic TP BID [facility] Last Admin: 03/18/17 22:36 Dose: 1 applic Collagenase (Santyl -) 1 applic TP DAILY [facility] Last Admin: 03/19/17 11:23 Dose: Not Given Diazepam (Valium -) 10 mg PO HS [facility] Last Admin: 03/18/17 22:36 Dose: 10 mg Docusate Sodium (Colace -) 100 mg PO HS [facility] Last Admin: 03/18/17 22:35 Dose: 100 mg Enoxaparin Sodium (Lovenox -) 40 mg SQ DAILY [facility] Last Admin: 03/19/17 11:44 Dose: 40 mg CEFTRIAXONE 1 G/50 ML PREMIX (Ceftriaxone 1 Gm-D5w Bag) 50 mls @ 100 mls/hr IVPB DAILY [facility] Stop: 03/22/17 10:29 Pantoprazole Sodium (Protonix -) 40 mg PO BID [facility] Last Admin: 03/19/17 11:20 Dose: 40 mg Polyethylene Glycol (Miralax (For Daily Use) -) 17 gm PO BID [facility] Last Admin: 03/18/17 23:39 Dose: 17 gm Potassium Chloride (K-Dur -) 40 meq PO DAILY [facility] Last Admin: 03/19/17 11:21 Dose: 40 meq Potassium Phos/Sodium Phos (Phos-Nak Packet -) 1 packet PO TID [facility] Last Admin: 03/19/17 13:51 Dose: 1 packet Prednisone (Deltasone -) 5 mg PO DAILY [facility] Last Admin: 03/19/17 11:20 Dose: 5 mg Risperidone (Risperdal -) 1 mg PO BID [facility] Last Admin: 03/19/17 12:25 Dose: 1 mg Zolpidem Tartrate (Ambien -) 5 mg PO HS PRN Last Admin: 03/18/17 23:39 Dose: 5 mg - Objective Vital Signs: Vital Signs Temperature 98.4 F 03/19/17 14:18 Pulse Rate 102 H 03/19/17 14:18 Respiratory Rate 18 03/19/17 14:18 Blood Pressure 117/67 03/19/17 14:18 O2 Sat by Pulse Oximetry (%) 100 03/19/17 09:00 Constitutional: Yes: No Distress, Calm Cardiovascular: Yes: Regular Rate and Rhythm Respiratory: Yes: Regular, CTA Bilaterally Gastrointestinal: Yes: Normal Bowel Sounds, Soft Musculoskeletal: Yes: WNL Extremities: Yes: Other Wound/Incision: Yes: Dressing Dry and Intact Neurological: Yes: Alert, Oriented Psychiatric: Yes: Alert, Oriented Labs: CBC, BMP 03/19/17 07:00 03/19/17 07:00 INR, PTT INR 1.20 (0.82-1.09) H 03/01/17 08:30 Assessment/Plan Problem List Problem List - Problems (1) TRENT (acute kidney injury) Assessment/Plan: CR WNL Code(s): N17.9 - ACUTE KIDNEY FAILURE, UNSPECIFIED (2) Anoxic brain injury Assessment/Plan: on [place] alert Code(s): G93.1 - ANOXIC BRAIN DAMAGE, NOT ELSEWHERE CLASSIFIED (3) Coma Assessment/Plan: awake and alert Code(s): R40.20 - UNSPECIFIED COMA Qualifiers: Coma depth: [place] coma 3-8 Coma timing: at arrival to emergency department Qualified Code(s): R40.2432 - [place] coma scale score 3-8, at arrival to emergency department; R40.2432 - [place] coma scale score 3-8, at arrival to emergency department; R40.2432 - [place] coma scale score 3-8, at arrival to emergency department (4) Overdose Assessment/Plan: reportedly pt is on pain 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 Code(s): T50.901A - POISONING BY UNSP DRUG/MEDS/BIOL SUBST, ACCIDENTAL, INIT Qualifiers: Encounter type: initial encounter Injury intent: undetermined intent Qualified Code(s): T50.904A - Poisoning by unspecified drugs, medicaments and biological substances, undetermined, initial encounter; T50.904A - Poisoning by unspecified drugs, medicaments and biological substances, undetermined, initial encounter (5) Polypharmacy Code(s): Z79.899 - 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 (6) Respiratory failure Assessment/Plan: on [place] Code(s): J96.90 - RESPIRATORY FAILURE, UNSP, UNSP W HYPOXIA OR HYPERCAPNIA Qualifiers: Chronicity: acute (7) Rhabdomyolysis Code(s): M62.82 - RHABDOMYOLYSIS (8) Unresponsive Code(s): R41.89 - OTH SYMPTOMS AND SIGNS W COGNITIVE FUNCTIONS AND AWARENESS (9) UTI (urinary tract infection) Code(s): N39.0 - URINARY TRACT INFECTION, SITE NOT SPECIFIED (10) Lupus (systemic lupus erythematosus) Assessment/Plan: will get wound care involved for skin wounds Code(s): M32.9 - SYSTEMIC LUPUS ERYTHEMATOSUS, UNSPECIFIED (11) Myopathy Code(s): G72.9 - MYOPATHY, UNSPECIFIED asp pna leukocytosis uti plan continues to improve rest as per primary continue wound care continue monitoring
[2017-03-19] MEDS: ACETAMINOPHEN 325 MG TABLET (FP) PO PRN (18:15)
[2017-03-19] MEDS: BACITRACIN 15 GM TUBE TOPICAL OINTMENT TP SCH ×2 (19:05→23:32)
[2017-03-19] MEDS: POLYETHYLENE GLYCOL 3350 119 GM BTL PO SCH ×2 (19:05→21:51)
[2017-03-19] MEDS: diazePAM 5 MG TABLET PO SCH (21:45)
[2017-03-19] MEDS: DOCUSATE SODIUM 100 MG CAPSULE (FP) PO SCH (21:46)
[2017-03-19] MEDS: ZOLPIDEM TARTRATE 5 MG TABLET PO PRN (23:32)
[2017-03-20] MEDS: NAPH,MB-DB/K PH,MBDB POWDER PACKET PO SCH ×3 (06:09→21:07)
[2017-03-20] MEDS: HYDROmorphone HCL CARPU-JECT 1 MG/1 ML DISP.SYRIN IVPB PRN ×4 (07:45→20:11)
[2017-03-20] MEDS: ENOXAPARIN NA (PORCINE) 40 MG/0.4 ML DISP.SYRIN SQ SCH (09:22)
[2017-03-20] MEDS: PANTOPRAZOLE 40 MG TABLET (FP) PO SCH ×2 (09:22→21:07)
[2017-03-20] MEDS: POLYETHYLENE GLYCOL 3350 119 GM BTL PO SCH ×2 (09:23→22:27)
[2017-03-20] MEDS: predniSONE 5 MG TABLET (UD) PO SCH (09:23)
[2017-03-20] MEDS: POTASSIUM CHLORIDE TABS 20 MEQ TABLET.ER (FP) PO SCH (09:23)
[2017-03-20] MEDS: BACITRACIN 15 GM TUBE TOPICAL OINTMENT TP SCH ×2 (09:24→22:26)
[2017-03-20] MEDS: COLLAGENASE CLOSTRIDIUM HIST. 30 GRAMS TUBE TP SCH (09:24)
[2017-03-20] MEDS: risperiDONE 1 MG TABLET (FP) PO SCH ×2 (09:24→21:06)
--- NOTE | 2017-03-20 09:59 | CONSULT ---
Consult Consult Specialty:: Plastic surgery Referred by:: Dr Heath Vivar Reason for Consultation:: Pressure Injury related wounds back and Left Hip - History of Present Illness Chief Complaint: Patient was admitted from ER for Unrespnsive state, being worked . 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 DEVELOPER: Yes: Other (SLE) Psych: Yes: Depression (questionable , denies suicidal ideation at present, or suicide attempt with prescribed medications, ) Rheumatology: Yes: Lupus - Alcohol/Substance Use Hx Alcohol Use: No (UNKNOWN) History of Substance Use: reports: Prescription - Smoking History Smoking history: Unknown if ever smoked - Social History Usual Living Arrangement: Alone Home Medications - Allergies Allergies/Adverse Reactions: Allergies Allergy/AdvReac Type Severity Reaction Status Date / Time methotrexate Allergy Unknown Vomiting Verified 03/12/17 18:53 metoclopramide HCl Allergy Unknown dystonia Verified 03/12/17 18:52 [From Reglan] - Home Medications Home Medications: Ambulatory Orders Unobtainable [Unobtainable] 02/26/17 Physical Exam Vital Signs: Vital Signs Temperature 97.6 F 03/20/17 09:45 Pulse Rate 91 H 03/20/17 09:45 Respiratory Rate 18 03/20/17 09:45 Blood Pressure 107/62 03/20/17 09:45 O2 Sat by Pulse Oximetry (%) 100 03/19/17 21:00 Labs: CBC, BMP 03/19/17 07:00 03/19/17 07:00 Assessment/Plan Patient evaluated in bed , history obtained, some areas of recall not complete States she only takes prescribed medications...reason she was found unresponsive in home, cannot recall She has had wound debridements Consult related to plan of care for pressure injuries Microbiology 03/01/17 14:50 Thigh - Left Gram Stain - Final 03/01/17 14:50 Thigh - Left Wound Culture - Final Proteus Vulgaris Staphylococcus Coagulase Neg Laboratory Tests 03/19/17 03/19/17 03/19/17 07:00 07:00 07:00 WBC 3.9 L Hgb 9.3 L Hct 29.8 L MCV 75.8 L MCH 23.7 L MCHC 31.2 L RDW 26.5 H Monocytes % 19.6 H BUN 3 L D Random Glucose 126 H D Alkaline Phosphatase 47 Creatine Kinase 42 Total Protein 5.9 L Albumin 2.9 L Plan : 1. Delay Flap reconstruction for pressure injuries while recovering from her present medical condition. 2. Continue VAC therapy 3. Continue PT to increase general strength, mobility 4. Will evaluate all wounds in AM as VAC will be changed Sunday Thanks you Dr Ca
[2017-03-20] MEDS ORDERED: CEFTRIAXONE 1 G/50 ML PREMIX 50 ML IVPB SCH ×2 (10:00)
--- NOTE | 2017-03-20 10:03 | PN ---
Progress Note (short form) - Note Progress Note: Neurology History of Present Illness 46 year old female presented to ER completely unresponsive, Rsosy coma scale of 3, who was "found down" possibly for several days and last known well two days prior to admission. Found in her own urine and feces without explanation of why. Concern for airway protection and ER intubated and put on mechanical ventilation in the ER. CT head completed and did not show acute changes. UTox positive for benzo, barbiturates, and opiods. Also with WBC of 18. Concern for drug overdose, was in ICU in close monitoring, eventually extubated and downgraded to telemetry. Has been more awake, alert, responsive, tracking examiner, conversive. Able to tell me she is in the hospital, the date, name of President. No neurologic events overnight. Remains stable, awaiting placement to SNF. Active Medications Acetaminophen (Tylenol -) 650 mg PO Q6H PRN PRN Reason: FEVER OR PAIN Last Admin: 03/19/17 18:15 Dose: 650 mg Bacitracin (Bacitracin -) 1 applic TP BID [facility] Last Admin: 03/20/17 09:24 Dose: Not Given Collagenase (Santyl -) 1 applic TP DAILY [facility] Last Admin: 03/20/17 09:24 Dose: Not Given Diazepam (Valium -) 10 mg PO HS [facility] Last Admin: 03/19/17 21:45 Dose: 10 mg Docusate Sodium (Colace -) 100 mg PO HS [facility] Last Admin: 03/19/17 21:46 Dose: 100 mg Enoxaparin Sodium (Lovenox -) 40 mg SQ DAILY [facility] Last Admin: 03/20/17 09:22 Dose: 40 mg Hydromorphone HCl (Dilaudid Injection -) 1 mg IVPB Q3H PRN PRN Reason: PAIN Last Admin: 03/20/17 07:45 Dose: 1 mg Pantoprazole Sodium (Protonix -) 40 mg PO BID [facility] Last Admin: 03/20/17 09:22 Dose: 40 mg Polyethylene Glycol (Miralax (For Daily Use) -) 17 gm PO BID [facility] Last Admin: 03/20/17 09:23 Dose: Not Given Potassium Chloride (K-Dur -) 40 meq PO DAILY [facility] Last Admin: 03/20/17 09:23 Dose: 40 meq Potassium Phos/Sodium Phos (Phos-Nak Packet -) 1 packet PO TID [facility] Last Admin: 03/20/17 06:09 Dose: 1 packet Prednisone (Deltasone -) 5 mg PO DAILY [facility] Last Admin: 03/20/17 09:23 Dose: 5 mg Risperidone (Risperdal -) 1 mg PO BID [facility] Last Admin: 03/20/17 09:24 Dose: 1 mg Zolpidem Tartrate (Ambien -) 5 mg PO HS PRN Last Admin: 03/19/17 23:32 Dose: 5 mg *Physical Exam Vital Signs Temperature 97.6 F 03/20/17 09:45 Pulse Rate 91 H 03/20/17 09:45 Respiratory Rate 18 03/20/17 09:45 Blood Pressure 107/62 03/20/17 09:45 O2 Sat by Pulse Oximetry (%) 100 03/19/17 21:00 Awake, tracking examiner, verbal and cooperative, conversive, maintains attention Squeezing hand to command, raising arms or legs to command, moving b/l UE with full range of motion No hemiparesis Intact to tactile stimulation Finger to nose intact Lungs sounds mechanical RRR Abdomen soft Gait deferred CBCD WBC 3.9 K/mm3 (4.0-10.0) L 03/19/17 07:00 RBC 3.93 M/mm3 (3.60-5.2) 03/19/17 07:00 Hgb 9.3 GM/dL (10.7-15.3) L 03/19/17 07:00 Hct 29.8 % (32.4-45.2) L 03/19/17 07:00 MCV 75.8 fl (80-96) L 03/19/17 07:00 MCHC 31.2 g/dl (32.0-36.0) L 03/19/17 07:00 RDW 26.5 % (11.6-15.6) H 03/19/17 07:00 Plt Count 240 K/MM3 (134-434) 03/19/17 07:00 MPV 9.8 fl (7.5-11.1) 03/19/17 07:00 CMP Sodium 141 mmol/L (136-145) 03/19/17 07:00 Potassium 3.8 mmol/L (3.5-5.1) 03/19/17 07:00 Chloride 104 mmol/L (98-107) 03/19/17 07:00 Carbon Dioxide 27 mmol/L (21-32) 03/19/17 07:00 Anion Gap 10 (8-16) 03/19/17 07:00 BUN 3 mg/dL (7-18) L D 03/19/17 07:00 Creatinine 0.6 mg/dL (0.55-1.02) 03/19/17 07:00 Creat Clearance w eGFR > 60 (>60) 03/19/17 07:00 Calcium 8.5 mg/dL (8.5-10.1) 03/19/17 07:00 Total Bilirubin 0.4 mg/dL (0.2-1.0) 03/19/17 07:00 AST 17 U/L (15-37) 03/19/17 07:00 ALT 20 U/L (12-78) 03/19/17 07:00 Alkaline Phosphatase 47 U/L (45-117) 03/19/17 07:00 Total Protein 5.9 g/dl (6.4-8.2) L 03/19/17 07:00 Albumin 2.9 g/dl (3.4-5.0) L 03/19/17 07:00 CT head repeat reviewed Plan: 46 year old female presented to ER completely unresponsive, Rossy coma scale of 3, who was "found down" possibly for several days and last known well two days ago. Found in her own urine and feces without explanation of why. Concern for airway protection and ER intubated and put on mechanical ventilation, improved, has been on floor status. UTox positive for benzo, barbiturates, and opiods. 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
--- NOTE | 2017-03-20 10:49 | PN ---
Progress Note, Physician Chief Complaint: Events noted Not in distress History of Present Illness: Patient was seen and examined. Awake and alert. Chart was reviewed Denies chest pain, SOB or palpitations Complained of hip discomfort - Current Medication List Current Medications: Active Medications Acetaminophen (Tylenol -) 650 mg PO Q6H PRN PRN Reason: FEVER OR PAIN Last Admin: 03/19/17 18:15 Dose: 650 mg Bacitracin (Bacitracin -) 1 applic TP BID [facility] Last Admin: 03/20/17 09:24 Dose: Not Given Collagenase (Santyl -) 1 applic TP DAILY [facility] Last Admin: 03/20/17 09:24 Dose: Not Given Diazepam (Valium -) 10 mg PO HS [facility] Last Admin: 03/19/17 21:45 Dose: 10 mg Docusate Sodium (Colace -) 100 mg PO HS [facility] Last Admin: 03/19/17 21:46 Dose: 100 mg Enoxaparin Sodium (Lovenox -) 40 mg SQ DAILY [facility] Last Admin: 03/20/17 09:22 Dose: 40 mg Hydromorphone HCl (Dilaudid Injection -) 1 mg IVPB Q3H PRN PRN Reason: PAIN Last Admin: 03/20/17 07:45 Dose: 1 mg Pantoprazole Sodium (Protonix -) 40 mg PO BID [facility] Last Admin: 03/20/17 09:22 Dose: 40 mg Polyethylene Glycol (Miralax (For Daily Use) -) 17 gm PO BID [facility] Last Admin: 03/20/17 09:23 Dose: Not Given Potassium Chloride (K-Dur -) 40 meq PO DAILY [facility] Last Admin: 03/20/17 09:23 Dose: 40 meq Potassium Phos/Sodium Phos (Phos-Nak Packet -) 1 packet PO TID [facility] Last Admin: 03/20/17 06:09 Dose: 1 packet Prednisone (Deltasone -) 5 mg PO DAILY [facility] Last Admin: 03/20/17 09:23 Dose: 5 mg Risperidone (Risperdal -) 1 mg PO BID [facility] Last Admin: 03/20/17 09:24 Dose: 1 mg Zolpidem Tartrate (Ambien -) 5 mg PO HS PRN Last Admin: 03/19/17 23:32 Dose: 5 mg - Objective Vital Signs: Vital Signs Temperature 97.6 F 03/20/17 09:45 Pulse Rate 91 H 03/20/17 09:45 Respiratory Rate 18 03/20/17 09:45 Blood Pressure 107/62 03/20/17 09:45 O2 Sat by Pulse Oximetry (%) 100 03/19/17 21:00 Neck: Yes: Supple Cardiovascular: Yes: Regular Rate and Rhythm, S1, S2 Respiratory: Yes: Diminished Gastrointestinal: Yes: Normal Bowel Sounds, Soft. No: Tenderness Edema: No Labs: CBC, BMP 03/19/17 07:00 03/19/17 07:00 Problem List - Problems (1) Lupus (systemic lupus erythematosus) Code(s): M32.9 - SYSTEMIC LUPUS ERYTHEMATOSUS, UNSPECIFIED (2) Rhabdomyolysis Code(s): M62.82 - RHABDOMYOLYSIS (3) Anemia Code(s): D64.9 - ANEMIA, UNSPECIFIED Qualifiers: Anemia type: unspecified type Qualified Code(s): D64.9 - Anemia, unspecified; D64.9 - Anemia, unspecified (4) Overdose Code(s): T50.901A - POISONING BY UNSP DRUG/MEDS/BIOL SUBST, ACCIDENTAL, INIT Qualifiers: Encounter type: initial encounter Injury intent: undetermined intent Qualified Code(s): T50.904A - Poisoning by unspecified drugs, medicaments and biological substances, undetermined, initial encounter; T50.904A - Poisoning by unspecified drugs, medicaments and biological substances, undetermined, initial encounter (5) Sepsis Code(s): A41.9 - SEPSIS, UNSPECIFIED ORGANISM (6) Myopathy Code(s): G72.9 - MYOPATHY, UNSPECIFIED Assessment/Plan 1. Post acute respiratory failure, persistent toxic metabolic encephalopathy, possible drug overdose 2. Sepsis syndrome, resolved 3. History of Lupus 4. Acute on chronic renal insufficiency, pre-renal azotemia, resolved 5. Anemia 6. Hypokalemia 7. Critical Illness Myopathy on EMG 8. Episode of catatonia PLAN: 1. DVT prophylaxis, steroids with GI prophylaxis 2. PT and rehab 3. Neurological evaluation as planned. Plastic surgery input noted Further plans are to follow. Ludwig Pedersen MD
--- NOTE | 2017-03-20 11:58 | DS ---
Physical Examination Vital Signs: Vital Signs Temperature 97.6 F 03/20/17 09:45 Pulse Rate 91 H 03/20/17 09:45 Respiratory Rate 18 03/20/17 09:45 Blood Pressure 107/62 03/20/17 09:45 O2 Sat by Pulse Oximetry (%) 100 03/19/17 21:00 HENT: Yes: Atraumatic Cardiovascular: Yes: Regular Rate and Rhythm Respiratory: Yes: CTA Bilaterally Gastrointestinal: Yes: Normal Bowel Sounds Extremities: Yes: WNL Neurological: Yes: Alert, Oriented Labs: CBC, BMP 03/19/17 07:00 03/19/17 07:00 Discharge Summary Reason For Visit: UNRESPONSIVE;COMA;POLYPHARMACY;DRUG OVERDOSE Current Active Problems TRENT (acute kidney injury) (Acute) Altered mental state (Acute) Anemia (Acute) Anoxic brain injury (Acute) Aspiration pneumonia (Acute) Catatonia (Acute) Coma (Acute) Hypernatremia (Acute) Insomnia (Acute) Leukocytosis (Acute) Lupus (Acute) Myopathy (Acute) Overdose (Acute) Polypharmacy (Acute) Respiratory failure (Acute) Rhabdomyolysis (Acute) Sepsis (Acute) Skin ulcer (Acute) UTI (urinary tract infection) (Acute) Unresponsive (Acute) Chronic pain (Chronic) Lupus (systemic lupus erythematosus) (Chronic) Condition: Stable - Home Medications Comprehensive Discharge Medication List: Ambulatory Orders Bacitracin - [Bacitracin Topical Ointment -] 1 applic TP BID tube 03/20/17 Collagenase Clostridium Hist. [Santyl -] 1 applic TP DAILY tube 03/20/17 Diazepam [Valium] 10 mg PO HS tablet MDD 1 03/20/17 PRN Docusate Sodium [Colace -] 100 mg PO HS #30 tab MDD 1 03/20/17 Naph,Mb-Db/K pH,Mbdb [PHOS-NaK PACKET -] 1 packet PO TID packet 03/20/17 Pantoprazole Sodium [Protonix -] 40 mg PO BID #60 tab MDD 2 03/20/17 Prednisone [Deltasone -] 5 mg PO DAILY tablet 03/20/17 Risperidone [Risperdal -] 1 mg PO BID tablet 03/20/17 Zolpidem Tartrate [Ambien] 5 mg PO HS PRN #10 tablet MDD 1 03/20/17 PRN dc to snf FOLLOW UP LABS, K LEVEL WOUND CARE DRESSING CHANGE..DR ROBERTO CAMACHO PLASTIC SURGERY DR LOZANO
--- NOTE | 2017-03-20 12:05 | PN ---
Progress Note (short form) - Note Progress Note: Resting in NAD. Overall appears much better. Intake & Output 03/17/17 03/18/17 03/19/17 03/20/17 23:59 23:59 23:59 23:59 Intake Total 3000 900 1260 200 Balance 3000 900 1260 200 Last Vital Signs Temp Pulse Resp BP Pulse Ox 97.6 F 91 H 18 107/62 100 03/20/17 09:45 03/20/17 09:45 03/20/17 09:45 03/20/17 09:45 03/19/17 21:00 Active Medications Acetaminophen (Tylenol -) 650 mg PO Q6H PRN PRN Reason: FEVER OR PAIN Last Admin: 03/19/17 18:15 Dose: 650 mg Bacitracin (Bacitracin -) 1 applic TP BID [facility] Last Admin: 03/20/17 09:24 Dose: Not Given Collagenase (Santyl -) 1 applic TP DAILY [facility] Last Admin: 03/20/17 09:24 Dose: Not Given Diazepam (Valium -) 10 mg PO HS [facility] Last Admin: 03/19/17 21:45 Dose: 10 mg Docusate Sodium (Colace -) 100 mg PO HS [facility] Last Admin: 03/19/17 21:46 Dose: 100 mg Enoxaparin Sodium (Lovenox -) 40 mg SQ DAILY [facility] Last Admin: 03/20/17 09:22 Dose: 40 mg Hydromorphone HCl (Dilaudid Injection -) 1 mg IVPB Q3H PRN PRN Reason: PAIN Last Admin: 03/20/17 11:26 Dose: 1 mg Pantoprazole Sodium (Protonix -) 40 mg PO BID [facility] Last Admin: 03/20/17 09:22 Dose: 40 mg Polyethylene Glycol (Miralax (For Daily Use) -) 17 gm PO BID [facility] Last Admin: 03/20/17 09:23 Dose: Not Given Potassium Chloride (K-Dur -) 40 meq PO DAILY [facility] Last Admin: 03/20/17 09:23 Dose: 40 meq Potassium Phos/Sodium Phos (Phos-Nak Packet -) 1 packet PO TID [facility] Last Admin: 03/20/17 06:09 Dose: 1 packet Prednisone (Deltasone -) 5 mg PO DAILY [facility] Last Admin: 03/20/17 09:23 Dose: 5 mg Risperidone (Risperdal -) 1 mg PO BID [facility] Last Admin: 03/20/17 09:24 Dose: 1 mg Zolpidem Tartrate (Ambien -) 5 mg PO HS PRN Last Admin: 03/19/17 23:32 Dose: 5 mg Gen: NAD Heart: S1S2, regular Lung: decreased breath sounds at the bases Abd: soft, nontender Ext: + edema ASSESSMENT AND PLAN: Altered Mental Status improving but not at baseline Acute Respiratory Failure (?) Drug Overdose Acute Kidney Injury Lupus Hypernatremia improving - s/p empiric antibiotics - Home prednisone dose for her lupus - PO as tolerated / Aspiration precautions - DVT prophylaxis - rehab/PT - D/C Dr Chambers
--- NOTE | 2017-03-20 14:33 | PN ---
Progress Note, SOUND PRINTER - Note Progress Note: Pt recall me well from last week. She is tolerating regular diet well. Flat affect at times with monotous speech production. She feels she is not herself, thinking more slowly. Occasional dysfluency of speech. Suspect cognitive deficits with excellent potential with intensive rehabilitation to return to improved independent state. Consider PMR consult/ rehab placement.
[2017-03-20] MEDS ORDERED: PT OWN MED DRAWER 7, Y5N ONE (20:59)
[2017-03-20] MEDS: DOCUSATE SODIUM 100 MG CAPSULE (FP) PO SCH (21:07)
[2017-03-20] MEDS: diazePAM 5 MG TABLET PO SCH (21:07)
[2017-03-20] MEDS: ZOLPIDEM TARTRATE 5 MG TABLET PO PRN (22:30)
[2017-03-21] MEDS: NAPH,MB-DB/K PH,MBDB POWDER PACKET PO SCH ×3 (06:13→21:08)
[2017-03-21] MEDS: HYDROmorphone HCL CARPU-JECT 1 MG/1 ML DISP.SYRIN IVPB PRN ×3 (07:48→15:42)
--- NOTE | 2017-03-21 09:58 | PN ---
Progress Note (short form) - Note Progress Note: Neurology History of Present Illness 46 year old female presented to ER completely unresponsive, Rossy coma scale of 3, who was "found down" possibly for several days and last known well two days prior to admission. Found in her own urine and feces without explanation of why. Concern for airway protection and ER intubated and put on mechanical ventilation in the ER. CT head completed and did not show acute changes. UTox positive for benzo, barbiturates, and opiods. Also with WBC of 18. Concern for drug overdose, was in ICU in close monitoring, eventually extubated and downgraded to telemetry. Has been more awake, alert, responsive, tracking examiner, conversive. No neurologic events overnight. Remains stable, awaiting placement to SNF. Active Medications Acetaminophen (Tylenol -) 650 mg PO Q6H PRN PRN Reason: FEVER OR PAIN Last Admin: 03/19/17 18:15 Dose: 650 mg Bacitracin (Bacitracin -) 1 applic TP BID [facility] Last Admin: 03/20/17 22:26 Dose: Not Given Collagenase (Santyl -) 1 applic TP DAILY [facility] Last Admin: 03/20/17 09:24 Dose: Not Given Diazepam (Valium -) 10 mg PO HS [facility] Last Admin: 03/20/17 21:07 Dose: 10 mg Docusate Sodium (Colace -) 100 mg PO HS [facility] Last Admin: 03/20/17 21:07 Dose: 100 mg Enoxaparin Sodium (Lovenox -) 40 mg SQ DAILY [facility] Last Admin: 03/20/17 09:22 Dose: 40 mg Hydromorphone HCl (Dilaudid Injection -) 1 mg IVPB Q3H PRN PRN Reason: PAIN Last Admin: 03/21/17 07:48 Dose: 1 mg Pantoprazole Sodium (Protonix -) 40 mg PO BID [facility] Last Admin: 03/20/17 21:07 Dose: 40 mg Polyethylene Glycol (Miralax (For Daily Use) -) 17 gm PO BID [facility] Last Admin: 03/20/17 22:27 Dose: Not Given Potassium Chloride (K-Dur -) 40 meq PO DAILY [facility] Last Admin: 03/20/17 09:23 Dose: 40 meq Potassium Phos/Sodium Phos (Phos-Nak Packet -) 1 packet PO TID [facility] Last Admin: 03/21/17 06:13 Dose: 1 packet Prednisone (Deltasone -) 5 mg PO DAILY [facility] Last Admin: 03/20/17 09:23 Dose: 5 mg Risperidone (Risperdal -) 1 mg PO BID [facility] Last Admin: 03/20/17 21:06 Dose: 1 mg Zolpidem Tartrate (Ambien -) 5 mg PO HS PRN Last Admin: 03/20/17 22:30 Dose: 5 mg *Physical Exam Vital Signs Period Temp Pulse Resp BP Sys/Pena Pulse Ox Last 24 Hr 98.1 F-98.6 F 95-107 20-20 111-141/75-90 99 Awake, tracking examiner, verbal and cooperative, conversive, maintains attention Squeezing hand to command, raising arms or legs to command, moving b/l UE with full range of motion No hemiparesis Intact to tactile stimulation Finger to nose intact Lungs sounds mechanical RRR Abdomen soft Gait deferred CBCD WBC 3.9 K/mm3 (4.0-10.0) L 03/19/17 07:00 RBC 3.93 M/mm3 (3.60-5.2) 03/19/17 07:00 Hgb 9.3 GM/dL (10.7-15.3) L 03/19/17 07:00 Hct 29.8 % (32.4-45.2) L 03/19/17 07:00 MCV 75.8 fl (80-96) L 03/19/17 07:00 MCHC 31.2 g/dl (32.0-36.0) L 03/19/17 07:00 RDW 26.5 % (11.6-15.6) H 03/19/17 07:00 Plt Count 240 K/MM3 (134-434) 03/19/17 07:00 MPV 9.8 fl (7.5-11.1) 03/19/17 07:00 CMP Sodium 141 mmol/L (136-145) 03/19/17 07:00 Potassium 3.8 mmol/L (3.5-5.1) 03/19/17 07:00 Chloride 104 mmol/L (98-107) 03/19/17 07:00 Carbon Dioxide 27 mmol/L (21-32) 03/19/17 07:00 Anion Gap 10 (8-16) 03/19/17 07:00 BUN 3 mg/dL (7-18) L D 03/19/17 07:00 Creatinine 0.6 mg/dL (0.55-1.02) 03/19/17 07:00 Creat Clearance w eGFR > 60 (>60) 03/19/17 07:00 Calcium 8.5 mg/dL (8.5-10.1) 03/19/17 07:00 Total Bilirubin 0.4 mg/dL (0.2-1.0) 03/19/17 07:00 AST 17 U/L (15-37) 03/19/17 07:00 ALT 20 U/L (12-78) 03/19/17 07:00 Alkaline Phosphatase 47 U/L (45-117) 03/19/17 07:00 Total Protein 5.9 g/dl (6.4-8.2) L 03/19/17 07:00 Albumin 2.9 g/dl (3.4-5.0) L 03/19/17 07:00 CT head repeat reviewed Plan: 46 year old female presented to ER completely unresponsive, Rossy coma scale of 3, who was "found down" possibly for several days and last known well two days ago. Found in her own urine and feces without explanation of why. Concern for airway protection and ER intubated and put on mechanical ventilation, improved, has been on floor status. UTox positive for benzo, barbiturates, and opiods. 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
[2017-03-21] MEDS ORDERED: PT OWN MED DRAWER 7, Y5N ONE (11:11)
[2017-03-21] MEDS: predniSONE 5 MG TABLET (UD) PO SCH (11:16)
[2017-03-21] MEDS: risperiDONE 1 MG TABLET (FP) PO SCH ×2 (11:16→22:06)
[2017-03-21] MEDS: ENOXAPARIN NA (PORCINE) 40 MG/0.4 ML DISP.SYRIN SQ SCH (11:16)
[2017-03-21] MEDS: POTASSIUM CHLORIDE TABS 20 MEQ TABLET.ER (FP) PO SCH (11:16)
[2017-03-21] MEDS: PANTOPRAZOLE 40 MG TABLET (FP) PO SCH ×2 (11:16→21:08)
[2017-03-21] MEDS: BACITRACIN 15 GM TUBE TOPICAL OINTMENT TP SCH ×2 (11:17→21:09)
[2017-03-21] MEDS: COLLAGENASE CLOSTRIDIUM HIST. 30 GRAMS TUBE TP SCH (11:17)
[2017-03-21] MEDS: POLYETHYLENE GLYCOL 3350 119 GM BTL PO SCH ×2 (11:38→21:08)
--- NOTE | 2017-03-21 11:59 | PN ---
Progress Note, Physician History of Present Illness: Catotonia resolved, back to baseline. - Current Medication List Current Medications: Active Medications Acetaminophen (Tylenol -) 650 mg PO Q6H PRN PRN Reason: FEVER OR PAIN Last Admin: 03/19/17 18:15 Dose: 650 mg Bacitracin (Bacitracin -) 1 applic TP BID [facility] Last Admin: 03/21/17 11:17 Dose: Not Given Collagenase (Santyl -) 1 applic TP DAILY [facility] Last Admin: 03/21/17 11:17 Dose: Not Given Diazepam (Valium -) 10 mg PO HS [facility] Last Admin: 03/20/17 21:07 Dose: 10 mg Docusate Sodium (Colace -) 100 mg PO HS [facility] Last Admin: 03/20/17 21:07 Dose: 100 mg Enoxaparin Sodium (Lovenox -) 40 mg SQ DAILY [facility] Last Admin: 03/21/17 11:16 Dose: 40 mg Hydromorphone HCl (Dilaudid Injection -) 1 mg IVPB Q3H PRN PRN Reason: PAIN Last Admin: 03/21/17 11:35 Dose: 1 mg Pantoprazole Sodium (Protonix -) 40 mg PO BID [facility] Last Admin: 03/21/17 11:16 Dose: 40 mg Polyethylene Glycol (Miralax (For Daily Use) -) 17 gm PO BID [facility] Last Admin: 03/21/17 11:38 Dose: Not Given Potassium Chloride (K-Dur -) 40 meq PO DAILY [facility] Last Admin: 03/21/17 11:16 Dose: 40 meq Potassium Phos/Sodium Phos (Phos-Nak Packet -) 1 packet PO TID [facility] Last Admin: 03/21/17 06:13 Dose: 1 packet Prednisone (Deltasone -) 5 mg PO DAILY [facility] Last Admin: 03/21/17 11:16 Dose: 5 mg Risperidone (Risperdal -) 1 mg PO BID [facility] Last Admin: 03/21/17 11:16 Dose: 1 mg Zolpidem Tartrate (Ambien -) 5 mg PO HS PRN Last Admin: 03/20/17 22:30 Dose: 5 mg - Objective Vital Signs: Vital Signs Temperature 98.6 F 03/21/17 04:00 Pulse Rate 101 H 03/21/17 04:00 Respiratory Rate 20 03/21/17 04:00 Blood Pressure 131/81 03/21/17 04:00 O2 Sat by Pulse Oximetry (%) 99 03/20/17 21:00 Constitutional: Yes: No Distress, Calm, Thin Neck: Yes: Supple Cardiovascular: Yes: Regular Rate and Rhythm Respiratory: Yes: Regular, Diminished Gastrointestinal: Yes: Normal Bowel Sounds, Soft Edema: No Labs: CBC, BMP 03/19/17 07:00 03/19/17 07:00 INR, PTT INR 1.20 (0.82-1.09) H 03/01/17 08:30 Problem List - Problems (1) Overdose Code(s): T50.901A - POISONING BY UNSP DRUG/MEDS/BIOL SUBST, ACCIDENTAL, INIT Qualifiers: Encounter type: initial encounter Injury intent: undetermined intent Qualified Code(s): T50.904A - Poisoning by unspecified drugs, medicaments and biological substances, undetermined, initial encounter; T50.904A - Poisoning by unspecified drugs, medicaments and biological substances, undetermined, initial encounter (2) Respiratory failure Code(s): J96.90 - RESPIRATORY FAILURE, UNSP, UNSP W HYPOXIA OR HYPERCAPNIA Qualifiers: Chronicity: acute (3) Aspiration pneumonia Code(s): J69.0 - PNEUMONITIS DUE TO INHALATION OF FOOD AND VOMIT Qualifiers: Aspiration pneumonia type: due to vomit Lung location: unspecified part of lung (4) Lupus (systemic lupus erythematosus) Code(s): M32.9 - SYSTEMIC LUPUS ERYTHEMATOSUS, UNSPECIFIED (5) Anemia Code(s): D64.9 - ANEMIA, UNSPECIFIED Qualifiers: Anemia type: unspecified type Qualified Code(s): D64.9 - Anemia, unspecified; D64.9 - Anemia, unspecified (6) Skin ulcer Code(s): L98.499 - NON-PRESSURE CHRONIC ULCER OF SKIN OF SITES W UNSP SEVERITY Qualifiers: Non-pressure ulcer stage: limited to breakdown of skin Qualified Code(s): L98.491 - Non-pressure chronic ulcer of skin of other sites limited to breakdown of skin; L98.491 - Non-pressure chronic ulcer of skin of other sites limited to breakdown of skin; L98.491 - Non-pressure chronic ulcer of skin of other sites limited to breakdown of skin; L98.491 - Non-pressure chronic ulcer of skin of other sites limited to breakdown of skin (7) Catatonia Code(s): F06.1 - CATATONIC DISORDER DUE TO KNOWN PHYSIOLOGICAL CONDITION Assessment/Plan 1. Post catatonia 2. Post acute respiratory failure, persistent toxic metabolic encephalopathy, possible drug overdose 3. Sepsis syndrome, resolved 4. History of Lupus 5. Acute on chronic renal insufficiency, pre-renal azotemia, resolved 6. Anemia 7. 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 Left upper back and hip necrotic ulcer post debridement PLAN: 1. Psychiatry and neurology inputs appreciated, HCT negative for acute changes 2. Abx, wound care, plan for wound vac placement left hip 3. DVT prophylaxis, steroid taper with GI prophylaxis 4. D/c planning
--- NOTE | 2017-03-21 13:04 | PN ---
Progress Note, Physician History of Present Illness: stable doing well - Current Medication List Current Medications: Active Medications Acetaminophen (Tylenol -) 650 mg PO Q6H PRN PRN Reason: FEVER OR PAIN Last Admin: 03/19/17 18:15 Dose: 650 mg Bacitracin (Bacitracin -) 1 applic TP BID [facility] Last Admin: 03/21/17 11:17 Dose: Not Given Collagenase (Santyl -) 1 applic TP DAILY [facility] Last Admin: 03/21/17 11:17 Dose: Not Given Diazepam (Valium -) 10 mg PO HS [facility] Last Admin: 03/20/17 21:07 Dose: 10 mg Docusate Sodium (Colace -) 100 mg PO HS [facility] Last Admin: 03/20/17 21:07 Dose: 100 mg Enoxaparin Sodium (Lovenox -) 40 mg SQ DAILY [facility] Last Admin: 03/21/17 11:16 Dose: 40 mg Hydromorphone HCl (Dilaudid Injection -) 1 mg IVPB Q3H PRN PRN Reason: PAIN Last Admin: 03/21/17 11:35 Dose: 1 mg Pantoprazole Sodium (Protonix -) 40 mg PO BID [facility] Last Admin: 03/21/17 11:16 Dose: 40 mg Polyethylene Glycol (Miralax (For Daily Use) -) 17 gm PO BID [facility] Last Admin: 03/21/17 11:38 Dose: Not Given Potassium Chloride (K-Dur -) 40 meq PO DAILY [facility] Last Admin: 03/21/17 11:16 Dose: 40 meq Potassium Phos/Sodium Phos (Phos-Nak Packet -) 1 packet PO TID [facility] Last Admin: 03/21/17 06:13 Dose: 1 packet Prednisone (Deltasone -) 5 mg PO DAILY [facility] Last Admin: 03/21/17 11:16 Dose: 5 mg Risperidone (Risperdal -) 1 mg PO BID [facility] Last Admin: 03/21/17 11:16 Dose: 1 mg Zolpidem Tartrate (Ambien -) 5 mg PO HS PRN Last Admin: 03/20/17 22:30 Dose: 5 mg - Objective Vital Signs: Vital Signs Temperature 98.6 F 03/21/17 04:00 Pulse Rate 101 H 03/21/17 04:00 Respiratory Rate 20 03/21/17 04:00 Blood Pressure 131/81 03/21/17 04:00 O2 Sat by Pulse Oximetry (%) 99 03/20/17 21:00 Constitutional: Yes: No Distress, Calm Cardiovascular: Yes: Regular Rate and Rhythm Respiratory: Yes: Regular, CTA Bilaterally Gastrointestinal: Yes: Normal Bowel Sounds, Soft Musculoskeletal: Yes: Other Extremities: Yes: Other (with wound vac) Wound/Incision: Yes: Other (wound vac) Psychiatric: Yes: Alert Labs: CBC, BMP 03/19/17 07:00 03/19/17 07:00 INR, PTT INR 1.20 (0.82-1.09) H 03/01/17 08:30 Assessment/Plan Problem List Problem List - Problems (1) TRENT (acute kidney injury) Assessment/Plan: CR WNL Code(s): N17.9 - ACUTE KIDNEY FAILURE, UNSPECIFIED (2) Anoxic brain injury Assessment/Plan: on [place] alert Code(s): G93.1 - ANOXIC BRAIN DAMAGE, NOT ELSEWHERE CLASSIFIED (3) Coma Assessment/Plan: awake and alert Code(s): R40.20 - UNSPECIFIED COMA Qualifiers: Coma depth: [place] coma 3-8 Coma timing: at arrival to emergency department Qualified Code(s): R40.2432 - [place] coma scale score 3-8, at arrival to emergency department; R40.2432 - [place] coma scale score 3-8, at arrival to emergency department; R40.2432 - [place] coma scale score 3-8, at arrival to emergency department (4) Overdose Assessment/Plan: reportedly pt is on pain meds per prescriptionist Code(s): T50.901A - POISONING BY UNSP DRUG/MEDS/BIOL SUBST, ACCIDENTAL, INIT Qualifiers: Encounter type: initial encounter Injury intent: undetermined intent Qualified Code(s): T50.904A - Poisoning by unspecified drugs, medicaments and biological substances, undetermined, initial encounter; T50.904A - Poisoning by unspecified drugs, medicaments and biological substances, undetermined, initial encounter (5) Polypharmacy Code(s): Z79.899 - OTHER CERAMIC TILE SETTER (CURRENT) DRUG THERAPY (6) Respiratory failure Assessment/Plan: on NC Code(s): J96.90 - RESPIRATORY FAILURE, UNSP, UNSP W HYPOXIA OR HYPERCAPNIA Qualifiers: Chronicity: acute (7) Rhabdomyolysis Code(s): M62.82 - RHABDOMYOLYSIS (8) Unresponsive Code(s): R41.89 - OTH SYMPTOMS AND SIGNS W COGNITIVE FUNCTIONS AND AWARENESS (9) UTI (urinary tract infection) Code(s): N39.0 - URINARY TRACT INFECTION, SITE NOT SPECIFIED (10) Lupus (systemic lupus erythematosus) Assessment/Plan: will get wound care involved for skin wounds Code(s): M32.9 - SYSTEMIC LUPUS ERYTHEMATOSUS, UNSPECIFIED (11) Myopathy Code(s): G72.9 - MYOPATHY, UNSPECIFIED asp pna leukocytosis uti plan continues to improve rest as per primary continue wound care continue monitoring
--- NOTE | 2017-03-21 14:24 | PN ---
Progress Note, SENIOR ABAP DEVELOPER - Note Progress Note: Tolerating diet well. Selected Entries 03/20/17 03/20/17 03/20/17 05:44 09:45 11:09 Breakfast 50% Lunch Supper Temperature 98.6 F 97.6 F 03/20/17 03/20/17 03/20/17 14:59 20:02 22:29 Breakfast Lunch 50% Supper 50% Temperature 98.1 F 98.5 F 03/20/17 03/21/17 22:52 04:00 Breakfast Lunch Supper Temperature 98.5 F 98.6 F Pending d/c to [facility]. Improving speech and cognition.
--- NOTE | 2017-03-21 16:49 | PN ---
Progress Note, Physician History of Present Illness: doing better - Current Medication List Current Medications: Active Medications Acetaminophen (Tylenol -) 650 mg PO Q6H PRN PRN Reason: FEVER OR PAIN Last Admin: 03/19/17 18:15 Dose: 650 mg Bacitracin (Bacitracin -) 1 applic TP BID [facility] Last Admin: 03/21/17 11:17 Dose: Not Given Collagenase (Santyl -) 1 applic TP DAILY [facility] Last Admin: 03/21/17 11:17 Dose: Not Given Diazepam (Valium -) 10 mg PO HS [facility] Last Admin: 03/20/17 21:07 Dose: 10 mg Docusate Sodium (Colace -) 100 mg PO HS [facility] Last Admin: 03/20/17 21:07 Dose: 100 mg Enoxaparin Sodium (Lovenox -) 40 mg SQ DAILY [facility] Last Admin: 03/21/17 11:16 Dose: 40 mg Hydromorphone HCl (Dilaudid Injection -) 1 mg IVPB Q3H PRN PRN Reason: PAIN Last Admin: 03/21/17 15:42 Dose: 1 mg Pantoprazole Sodium (Protonix -) 40 mg PO BID [facility] Last Admin: 03/21/17 11:16 Dose: 40 mg Polyethylene Glycol (Miralax (For Daily Use) -) 17 gm PO BID [facility] Last Admin: 03/21/17 11:38 Dose: Not Given Potassium Chloride (K-Dur -) 40 meq PO DAILY [facility] Last Admin: 03/21/17 11:16 Dose: 40 meq Potassium Phos/Sodium Phos (Phos-Nak Packet -) 1 packet PO TID [facility] Last Admin: 03/21/17 15:45 Dose: 1 packet Prednisone (Deltasone -) 5 mg PO DAILY [facility] Last Admin: 03/21/17 11:16 Dose: 5 mg Risperidone (Risperdal -) 1 mg PO BID [facility] Last Admin: 03/21/17 11:16 Dose: 1 mg Zolpidem Tartrate (Ambien -) 5 mg PO HS PRN Last Admin: 03/20/17 22:30 Dose: 5 mg - Objective Vital Signs: Vital Signs Temperature 97.9 F 03/21/17 14:38 Pulse Rate 113 H 03/21/17 14:38 Respiratory Rate 20 03/21/17 14:38 Blood Pressure 116/58 03/21/17 14:38 O2 Sat by Pulse Oximetry (%) 99 03/20/17 21:00 Constitutional: Yes: Calm HENT: Yes: Atraumatic Neck: Yes: Supple Cardiovascular: Yes: Regular Rate and Rhythm Respiratory: Yes: CTA Bilaterally Gastrointestinal: Yes: Normal Bowel Sounds Extremities: Yes: WNL Edema: No Peripheral Pulses WNL: Yes Integumentary: Yes: Other (decub ulcers and wounds as mentioned wound vac in place) Neurological: Yes: Alert, Oriented Labs: CBC, BMP 03/19/17 07:00 03/19/17 07:00 INR, PTT INR 1.20 (0.82-1.09) H 03/01/17 08:30 Problem List - Problems (1) TRENT (acute kidney injury) Assessment/Plan: CR WNL Code(s): N17.9 - ACUTE KIDNEY FAILURE, UNSPECIFIED (2) Anoxic brain injury Assessment/Plan: on NC alert and oriented Code(s): G93.1 - ANOXIC BRAIN DAMAGE, NOT ELSEWHERE CLASSIFIED (3) Overdose Assessment/Plan: reportedly pt is on pain meds per tipple worker Code(s): T50.901A - POISONING BY UNSP DRUG/MEDS/BIOL SUBST, ACCIDENTAL, INIT Qualifiers: Encounter type: initial encounter Injury intent: undetermined intent Qualified Code(s): T50.904A - Poisoning by unspecified drugs, medicaments and biological substances, undetermined, initial encounter; T50.904A - Poisoning by unspecified drugs, medicaments and biological substances, undetermined, initial encounter (4) Polypharmacy Code(s): Z79.899 - OTHER SNAKER (CURRENT) DRUG THERAPY (5) Respiratory failure Assessment/Plan: on NC Code(s): J96.90 - RESPIRATORY FAILURE, UNSP, UNSP W HYPOXIA OR HYPERCAPNIA Qualifiers: Chronicity: acute (6) Rhabdomyolysis Assessment/Plan: ivf resolved Code(s): M62.82 - RHABDOMYOLYSIS (7) Unresponsive Code(s): R41.89 - OTH SYMPTOMS AND SIGNS W COGNITIVE FUNCTIONS AND AWARENESS (8) UTI (urinary tract infection) Assessment/Plan: on abx...done Code(s): N39.0 - URINARY TRACT INFECTION, SITE NOT SPECIFIED (9) Lupus (systemic lupus erythematosus) Assessment/Plan: on prednisone Code(s): M32.9 - SYSTEMIC LUPUS ERYTHEMATOSUS, UNSPECIFIED (10) Myopathy Assessment/Plan: pt able to walk few steps with walker...doing better now Code(s): G72.9 - MYOPATHY, UNSPECIFIED (11) Skin ulcer Assessment/Plan: wound care, wound vac palstic surgery on board Code(s): L98.499 - NON-PRESSURE CHRONIC ULCER OF SKIN OF SITES W UNSP SEVERITY Qualifiers: Non-pressure ulcer stage: limited to breakdown of skin Qualified Code(s): L98.491 - Non-pressure chronic ulcer of skin of other sites limited to breakdown of skin; L98.491 - Non-pressure chronic ulcer of skin of other sites limited to breakdown of skin; L98.491 - Non-pressure chronic ulcer of skin of other sites limited to breakdown of skin; L98.491 - Non-pressure chronic ulcer of skin of other sites limited to breakdown of skin
[2017-03-21] MEDS: oxyCODONE HCL 5 MG TABLET PO PRN ×2 (17:40→21:07)
[2017-03-21] MEDS: DOCUSATE SODIUM 100 MG CAPSULE (FP) PO SCH (21:08)
[2017-03-21] MEDS: ZOLPIDEM TARTRATE 5 MG TABLET PO PRN (21:08)
[2017-03-21] MEDS: diazePAM 5 MG TABLET PO SCH (22:05)
--- NOTE | 2017-03-21 22:10 | PN ---
Progress Note (short form) - Note Progress Note: FU grade IV Pressure Injury Left Hip and Chest Awake alert Wounds evaluated 1. Left chest, clean , no erythema, no odor, still has tissue at the base (fat ) needs excision 2. Left Hip : Extends deep to trochanteric bursa, clean, no odor , mild tender, not warm Plan : 1. Nutrition support, still low in Albumin 2. Continue VAC include both decubitii using Bridge 3. Continue PT increase in ambulation and strength, patient being young may be able to avoid reconstructive surgery , as she is responding well to VAC FU in wound clinic in two weeks
[2017-03-22] MEDS: NAPH,MB-DB/K PH,MBDB POWDER PACKET PO SCH (05:38)
[2017-03-22] MEDS: oxyCODONE HCL 5 MG TABLET PO PRN (05:46)
[2017-03-22 09:15] VITALS: BP 120/74; PULSE 98; TEMP 98
--- NOTE | 2017-03-22 09:34 | PN ---
Progress Note (short form) - Note Progress Note: Resting in NAD. Overall appears better. No acute events overnight. Intake & Output 03/19/17 03/20/17 03/21/17 03/22/17 23:59 23:59 23:59 23:59 Intake Total 1260 690 650 200 Output Total 500 Balance 1260 190 650 200 Last Vital Signs Temp Pulse Resp BP Pulse Ox 98.0 F 98 H 20 120/74 99 03/22/17 09:14 03/22/17 09:14 03/22/17 09:14 03/22/17 09:14 03/21/17 21:00 Active Medications Acetaminophen (Tylenol -) 650 mg PO Q6H PRN PRN Reason: FEVER OR PAIN Last Admin: 03/19/17 18:15 Dose: 650 mg Bacitracin (Bacitracin -) 1 applic TP BID [facility] Last Admin: 03/21/17 21:09 Dose: Not Given Collagenase (Santyl -) 1 applic TP DAILY [facility] Last Admin: 03/21/17 11:17 Dose: Not Given Diazepam (Valium -) 10 mg PO HS [facility] Last Admin: 03/21/17 22:05 Dose: 10 mg Docusate Sodium (Colace -) 100 mg PO HS [facility] Last Admin: 03/21/17 21:08 Dose: 100 mg Enoxaparin Sodium (Lovenox -) 40 mg SQ DAILY [facility] Last Admin: 03/21/17 11:16 Dose: 40 mg Oxycodone HCl (Roxicodone -) 10 mg PO Q6H PRN PRN Reason: PAIN Last Admin: 03/22/17 05:46 Dose: 10 mg Pantoprazole Sodium (Protonix -) 40 mg PO BID [facility] Last Admin: 03/21/17 21:08 Dose: 40 mg Polyethylene Glycol (Miralax (For Daily Use) -) 17 gm PO BID [facility] Last Admin: 03/21/17 21:08 Dose: 17 gm Potassium Chloride (K-Dur -) 40 meq PO DAILY [facility] Last Admin: 03/21/17 11:16 Dose: 40 meq Potassium Phos/Sodium Phos (Phos-Nak Packet -) 1 packet PO TID [facility] Last Admin: 03/22/17 05:38 Dose: 1 packet Prednisone (Deltasone -) 5 mg PO DAILY [facility] Last Admin: 10/11/17 11:16 Dose: 5 mg Risperidone (Risperdal -) 1 mg PO BID [facility] Last Admin: 03/21/17 22:06 Dose: 1 mg Gen: NAD Heart: S1S2, regular Lung: decreased breath sounds at the bases Abd: soft, nontender Ext: + edema ASSESSMENT AND PLAN: Altered Mental Status improving but not at baseline Acute Respiratory Failure (?) Drug Overdose Acute Kidney Injury Lupus Hypernatremia improving - s/p empiric antibiotics - Home prednisone dose for her lupus - PO as tolerated / Aspiration precautions - DVT prophylaxis - rehab/PT - D/C planning Dr Chambers
[2017-03-22] MEDS ORDERED: PT OWN MED DRAWER 7, Y5N ONE (09:44)
[2017-03-22] MEDS: predniSONE 5 MG TABLET (UD) PO SCH (09:50)
[2017-03-22] MEDS: risperiDONE 1 MG TABLET (FP) PO SCH (09:50)
[2017-03-22] MEDS: PANTOPRAZOLE 40 MG TABLET (FP) PO SCH (09:50)
[2017-03-22] MEDS: POTASSIUM CHLORIDE TABS 20 MEQ TABLET.ER (FP) PO SCH (09:50)
[2017-03-22] MEDS: ENOXAPARIN NA (PORCINE) 40 MG/0.4 ML DISP.SYRIN SQ SCH (09:50)
[2017-03-22] MEDS: BACITRACIN 15 GM TUBE TOPICAL OINTMENT TP SCH (09:51)
[2017-03-22] MEDS: POLYETHYLENE GLYCOL 3350 119 GM BTL PO SCH (09:51)
[2017-03-22] MEDS: COLLAGENASE CLOSTRIDIUM HIST. 30 GRAMS TUBE TP SCH (09:51)
--- NOTE | 2017-03-22 10:24 | PN ---
Progress Note (short form) - Note Progress Note: Neurology History of Present Illness 46 year old female presented to ER completely unresponsive, [place] coma scale of 3, who was "found down" possibly for several days and last known well two days prior to admission. Found in her own urine and feces without explanation of why. Concern for airway protection and ER intubated and put on mechanical ventilation in the ER. CT head completed and did not show acute changes. UTox positive for benzo, barbiturates, and opiods. Also with WBC of 18. Concern for drug overdose, was in ICU in close monitoring, eventually extubated and downgraded to telemetry. Has been more awake, alert, responsive, tracking examiner, conversive. No neurologic events overnight. Remains stable, awaiting placement to SNF. Ambulating without difficulty. Spoke to social scientist who is trying to get bed for patient, was previously set to go to [facility]. Active Medications Acetaminophen (Tylenol -) 650 mg PO Q6H PRN PRN Reason: FEVER OR PAIN Last Admin: 03/19/17 18:15 Dose: 650 mg Bacitracin (Bacitracin -) 1 applic TP BID [facility] Last Admin: 03/22/17 09:51 Dose: Not Given Collagenase (Santyl -) 1 applic TP DAILY [facility] Last Admin: 03/22/17 09:51 Dose: Not Given Diazepam (Valium -) 10 mg PO HS [facility] Last Admin: 03/21/17 22:05 Dose: 10 mg Docusate Sodium (Colace -) 100 mg PO HS [facility] Last Admin: 03/21/17 21:08 Dose: 100 mg Enoxaparin Sodium (Lovenox -) 40 mg SQ DAILY [facility] Last Admin: 03/22/17 09:50 Dose: 40 mg Oxycodone HCl (Roxicodone -) 10 mg PO Q6H PRN PRN Reason: PAIN Last Admin: 03/22/17 05:46 Dose: 10 mg Pantoprazole Sodium (Protonix -) 40 mg PO BID [facility] Last Admin: 03/22/17 09:50 Dose: 40 mg Polyethylene Glycol (Miralax (For Daily Use) -) 17 gm PO BID [facility] Last Admin: 03/22/17 09:51 Dose: 17 gm Potassium Chloride (K-Dur -) 40 meq PO DAILY [facility] Last Admin: 03/22/17 09:50 Dose: 40 meq Potassium Phos/Sodium Phos (Phos-Nak Packet -) 1 packet PO TID [facility] Last Admin: 03/22/17 05:38 Dose: 1 packet Prednisone (Deltasone -) 5 mg PO DAILY [facility] Last Admin: 03/22/17 09:50 Dose: 5 mg Risperidone (Risperdal -) 1 mg PO BID [facility] Last Admin: 03/22/17 09:50 Dose: 1 mg *Physical Exam Vital Signs Temperature 98.0 F 03/22/17 09:14 Pulse Rate 98 H 03/22/17 09:14 Respiratory Rate 20 03/22/17 09:14 Blood Pressure 120/74 03/22/17 09:14 O2 Sat by Pulse Oximetry (%) 99 03/21/17 21:00 Awake, tracking examiner, verbal and cooperative, conversive, maintains attention Squeezing hand to command, raising arms or legs to command, moving b/l UE with full range of motion No hemiparesis Intact to tactile stimulation Finger to nose intact Lungs sounds mechanical RRR Abdomen soft Gait deferred CBCD WBC 3.9 K/mm3 (4.0-10.0) L 03/19/17 07:00 RBC 3.93 M/mm3 (3.60-5.2) 03/19/17 07:00 Hgb 9.3 GM/dL (10.7-15.3) L 03/19/17 07:00 Hct 29.8 % (32.4-45.2) L 03/19/17 07:00 MCV 75.8 fl (80-96) L 03/19/17 07:00 MCHC 31.2 g/dl (32.0-36.0) L 03/19/17 07:00 RDW 26.5 % (11.6-15.6) H 03/19/17 07:00 Plt Count 240 K/MM3 (134-434) 03/19/17 07:00 MPV 9.8 fl (7.5-11.1) 03/19/17 07:00 CMP Sodium 141 mmol/L (136-145) 03/19/17 07:00 Potassium 3.8 mmol/L (3.5-5.1) 03/19/17 07:00 Chloride 104 mmol/L (98-107) 03/19/17 07:00 Carbon Dioxide 27 mmol/L (21-32) 03/19/17 07:00 Anion Gap 10 (8-16) 03/19/17 07:00 BUN 3 mg/dL (7-18) L D 03/19/17 07:00 Creatinine 0.6 mg/dL (0.55-1.02) 03/19/17 07:00 Creat Clearance w eGFR > 60 (>60) 03/19/17 07:00 Calcium 8.5 mg/dL (8.5-10.1) 03/19/17 07:00 Total Bilirubin 0.4 mg/dL (0.2-1.0) 03/19/17 07:00 AST 17 U/L (15-37) 03/19/17 07:00 ALT 20 U/L (12-78) 03/19/17 07:00 Alkaline Phosphatase 47 U/L (45-117) 03/19/17 07:00 Total Protein 5.9 g/dl (6.4-8.2) L 03/19/17 07:00 Albumin 2.9 g/dl (3.4-5.0) L 03/19/17 07:00 CT head repeat reviewed Plan: 46 year old female presented to ER completely unresponsive, [place] coma scale of 3, who was "found down" possibly for several days and last known well two days ago. Found in her own urine and feces without explanation of why. Concern for airway protection and ER intubated and put on mechanical ventilation, improved, has been on floor status. UTox positive for benzo, barbiturates, and opiods. 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
[2017-03-22] MEDS: ACETAMINOPHEN 325 MG TABLET (FP) PO PRN (10:39)
--- NOTE | 2017-03-22 10:41 | PN ---
Progress Note, Physician History of Present Illness: Catotonia resolved, back to baseline. - Current Medication List Current Medications: Active Medications Acetaminophen (Tylenol -) 650 mg PO Q6H PRN PRN Reason: FEVER OR PAIN Last Admin: 03/22/17 10:39 Dose: 650 mg Bacitracin (Bacitracin -) 1 applic TP BID [facility] Last Admin: 03/22/17 09:51 Dose: Not Given Collagenase (Santyl -) 1 applic TP DAILY [facility] Last Admin: 03/22/17 09:51 Dose: Not Given Diazepam (Valium -) 10 mg PO HS [facility] Last Admin: 03/21/17 22:05 Dose: 10 mg Docusate Sodium (Colace -) 100 mg PO HS [facility] Last Admin: 03/21/17 21:08 Dose: 100 mg Enoxaparin Sodium (Lovenox -) 40 mg SQ DAILY [facility] Last Admin: 03/22/17 09:50 Dose: 40 mg Oxycodone HCl (Roxicodone -) 10 mg PO Q6H PRN PRN Reason: PAIN Last Admin: 03/22/17 05:46 Dose: 10 mg Pantoprazole Sodium (Protonix -) 40 mg PO BID [facility] Last Admin: 03/22/17 09:50 Dose: 40 mg Polyethylene Glycol (Miralax (For Daily Use) -) 17 gm PO BID [facility] Last Admin: 03/22/17 09:51 Dose: 17 gm Potassium Chloride (K-Dur -) 40 meq PO DAILY [facility] Last Admin: 03/22/17 09:50 Dose: 40 meq Potassium Phos/Sodium Phos (Phos-Nak Packet -) 1 packet PO TID [facility] Last Admin: 03/22/17 05:38 Dose: 1 packet Prednisone (Deltasone -) 5 mg PO DAILY [facility] Last Admin: 03/22/17 09:50 Dose: 5 mg Risperidone (Risperdal -) 1 mg PO BID [facility] Last Admin: 03/22/17 09:50 Dose: 1 mg - Objective Vital Signs: Vital Signs Temperature 98.0 F 03/22/17 09:14 Pulse Rate 98 H 03/22/17 09:14 Respiratory Rate 20 03/22/17 09:14 Blood Pressure 120/74 03/22/17 09:14 O2 Sat by Pulse Oximetry (%) 99 03/21/17 21:00 Constitutional: Yes: No Distress, Calm, Thin Neck: Yes: Supple Cardiovascular: Yes: Regular Rate and Rhythm Respiratory: Yes: Regular, CTA Bilaterally Gastrointestinal: Yes: Normal Bowel Sounds, Soft Edema: No Labs: CBC, BMP 03/19/17 07:00 03/19/17 07:00 INR, PTT INR 1.20 (0.82-1.09) H 03/01/17 08:30 Problem List - Problems (1) Overdose Code(s): T50.901A - POISONING BY UNSP DRUG/MEDS/BIOL SUBST, ACCIDENTAL, INIT Qualifiers: Encounter type: initial encounter Injury intent: undetermined intent Qualified Code(s): T50.904A - Poisoning by unspecified drugs, medicaments and biological substances, undetermined, initial encounter; T50.904A - Poisoning by unspecified drugs, medicaments and biological substances, undetermined, initial encounter (2) Respiratory failure Code(s): J96.90 - RESPIRATORY FAILURE, UNSP, UNSP W HYPOXIA OR HYPERCAPNIA Qualifiers: Chronicity: acute (3) Aspiration pneumonia Code(s): J69.0 - PNEUMONITIS DUE TO INHALATION OF FOOD AND VOMIT Qualifiers: Aspiration pneumonia type: due to vomit Lung location: unspecified part of lung (4) Lupus (systemic lupus erythematosus) Code(s): M32.9 - SYSTEMIC LUPUS ERYTHEMATOSUS, UNSPECIFIED (5) Anemia Code(s): D64.9 - ANEMIA, UNSPECIFIED Qualifiers: Anemia type: unspecified type Qualified Code(s): D64.9 - Anemia, unspecified; D64.9 - Anemia, unspecified (6) Skin ulcer Code(s): L98.499 - NON-PRESSURE CHRONIC ULCER OF SKIN OF SITES W UNSP SEVERITY Qualifiers: Non-pressure ulcer stage: limited to breakdown of skin Qualified Code(s): L98.491 - Non-pressure chronic ulcer of skin of other sites limited to breakdown of skin; L98.491 - Non-pressure chronic ulcer of skin of other sites limited to breakdown of skin; L98.491 - Non-pressure chronic ulcer of skin of other sites limited to breakdown of skin; L98.491 - Non-pressure chronic ulcer of skin of other sites limited to breakdown of skin (7) Catatonia Code(s): F06.1 - CATATONIC DISORDER DUE TO KNOWN PHYSIOLOGICAL CONDITION Assessment/Plan 1. Post catatonia 2. Post acute respiratory failure, persistent toxic metabolic encephalopathy, possible drug overdose 3. Sepsis syndrome, resolved 4. History of Lupus 5. Acute on chronic renal insufficiency, pre-renal azotemia, resolved 6. Anemia 7. 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 Left upper back and hip necrotic ulcer post debridement PLAN: 1. Psychiatry and neurology inputs appreciated, HCT negative for acute changes 2. Post Abx course, wound care and wound vac management left hip 3. DVT prophylaxis, steroid taper with GI prophylaxis 4. D/c planning to [facility]
--- NOTE | 2017-03-22 10:46 | PN ---
Progress Note, IT ASSISTANT - Note Progress Note: Selected Entries 03/21/17 03/21/17 03/21/17 04:00 09:00 14:38 Breakfast Lunch 50% Supper Temperature 98.6 F 98.6 F 97.9 F 03/21/17 03/21/17 03/21/17 21:02 21:03 23:14 Breakfast Lunch Supper 50% Temperature 98.1 F 98.7 F 03/22/17 03/22/17 03/22/17 03:00 06:15 09:14 Breakfast Lunch Supper Temperature 97.9 F 98.1 F 98.0 F 03/22/17 09:57 Breakfast 75% Lunch Supper Temperature Laboratory Tests 03/19/17 07:00 WBC 3.9 L 3 Ensure clear noted at bedside. Counseled pt on drinking supplements for improved wound healing.She said that it tasted like medicine. However, when I diluted it with water and poured it over ice, she completed one container. A brief cough was noted while drinking consistently from a straw. She also said she coughs at times on medications. Pt counseled on avoiding continuous drinking , especially from a straw. Single sips, swallow quickly. Possibly meds in applesauce, followed by liquid if coughing noted. Monitor PO tolerance/pulmonary status. Verbalizations appropriate but still slow to respond and fairly sparse.Questionable if cognition at baseline. Pt will benefit from cognitive tx involving memory,abstract reasoning, divergent thiking tasks. Pending d/c to [facility] when medically stable.
--- NOTE | 2017-03-22 16:53 | DS ---
Physical Examination Vital Signs: Vital Signs Temperature 98.0 F 03/22/17 09:14 Pulse Rate 98 H 03/22/17 09:14 Respiratory Rate 20 03/22/17 09:14 Blood Pressure 120/74 03/22/17 09:14 O2 Sat by Pulse Oximetry (%) 100 03/22/17 09:00 Constitutional: Yes: No Distress HENT: Yes: Atraumatic Neck: Yes: Supple Cardiovascular: Yes: Regular Rate and Rhythm Respiratory: Yes: CTA Bilaterally Gastrointestinal: Yes: Normal Bowel Sounds Extremities: Yes: WNL Neurological: Yes: Alert, Oriented Labs: CBC, BMP 03/19/17 07:00 03/19/17 07:00 Discharge Summary Reason For Visit: UNRESPONSIVE;COMA;POLYPHARMACY;DRUG OVERDOSE Condition: Stable - Instructions Disposition: [facility] - Home Medications Comprehensive Discharge Medication List: Ambulatory Orders Bacitracin - [Bacitracin Topical Ointment -] 1 applic TP BID tube 03/20/17 Collagenase Clostridium Hist. [Santyl -] 1 applic TP DAILY tube 03/20/17 Diazepam [Valium] 10 mg PO HS tablet MDD 1 03/20/17 Docusate Sodium [Colace -] 100 mg PO HS #30 tab MDD 1 03/20/17 Naph,Mb-Db/K pH,Mbdb [PHOS-NaK PACKET -] 1 packet PO TID packet 03/20/17 Pantoprazole Sodium [Protonix -] 40 mg PO BID #60 tab MDD 2 03/20/17 Prednisone [Deltasone -] 5 mg PO DAILY tablet 03/20/17 Risperidone [Risperdal -] 1 mg PO BID tablet 03/20/17 Zolpidem Tartrate [Ambien] 5 mg PO HS PRN #10 tablet MDD 1 03/20/17 dc to snf
== END 2017-03-22 12:44 | DRG 901 ==
LOC: JER 12:57 → EDBD 12:57 → JERBED 14:45 → JICU 17:55 → J4W 03-05 16:57 → J7W 03-06 20:18 → JERBED 03-06 20:40 → J7W 03-06 20:41
PROVIDERS: ADMIT Internal Medicine; ATTEND Internal Medicine
PROC: 5A1955Z Respiratory Ventilation, Greater than 96 Consecutive Hours (ICD-10-PCS; 2017-02-26)
PROC: 0BH17EZ Insertion of Endotracheal Airway into Trachea, Via Natural or Artificial Opening (ICD-10-PCS; 2017-02-26)
PROC: 0JB70ZZ Excision of Back Subcutaneous Tissue and Fascia, Open Approach (ICD-10-PCS; principal; 2017-03-14)
PROC: 0SBB0ZZ Excision of Left Hip Joint, Open Approach (ICD-10-PCS; 2017-03-14)
DX: T42.3X1A Poisoning by barbiturates, accidental (unintentional), initial encounter (principal); R40.20 Unspecified coma; G92 Toxic encephalopathy; J69.0 Pneumonitis due to inhalation of food and vomit; J96.00 Acute respiratory failure, unspecified whether with hypoxia or hypercapnia; M62.82 Rhabdomyolysis; N39.0 Urinary tract infection, site not specified; N17.9 Acute kidney failure, unspecified; E87.0 Hyperosmolality and hypernatremia; G72.81 Critical illness myopathy; T42.4X1A Poisoning by benzodiazepines, accidental (unintentional), initial encounter; Y92.89 Other specified places as the place of occurrence of the external cause; R40.2432 Glasgow coma scale score 3-8, at arrival to emergency department; M32.9 Systemic lupus erythematosus, unspecified; L89.159 Pressure ulcer of sacral region, unspecified stage; L89.229 Pressure ulcer of left hip, unspecified stage; E87.6 Hypokalemia; Z79.899 Other long term (current) drug therapy; D64.9 Anemia, unspecified; D72.829 Elevated white blood cell count, unspecified; N28.9 Disorder of kidney and ureter, unspecified; R41.82 Altered mental status, unspecified
CPT/HCPCS: 36415; 36600; 70450-TC; 71010-TC; 72110-TC; 72170-TC; 74000-TC; 80048; 80053; 80307; 81003; 82009; 82085; 82140; 82272; 82310; 82375; 82533; 82540; 82553; 82607; 82728; 82746; 82803; 83010; 83050; 83540; 83550; 83605; 83615; 83735; 83930; 84100; 84146; 84439; 84443; 84481; 84484; 84703; 85025; 85027; 85610; 85651; 85730; 86038; 86140; 86160; 86162; 86225; 86235; 86850; 86900; 86901; 87040; 87070; 87086; 87186; 87205; 88304-TC; 93005; 93010; 93306-TC; 94002; 94640; 94760; 95816; 95860-TC; 97116-GP; 97161-GP; 99285-25; J1644; J2794

== ENCOUNTER 2017-07-05 11:57 | Inpatient (IN) | payer OTHER ==
--- NOTE | 2017-07-05 12:20 | PDOC ---
History of Present Illness - General Chief Complaint: PICC Line Insertion Stated Complaint: NEED A PICC LINE Time Seen by Provider: 07/05/17 12:03 - History of Present Illness Initial Comments: 07/05/17 12:07 Patient is a 46 year old female with a PMH of schizophrenia, SLE (w/associated pericarditis) and a chronic LLE hip ulcer who presents from [facility] at the behest of her PCP, Dr. Rivera, for placement of a PICC line. Patient has been receiving PO abx while at [facility] and denies any allergic or anaphylactic reaction. Past History - Past Medical History Allergies/Adverse Reactions: Allergies Allergy/AdvReac Type Severity Reaction Status Date / Time methotrexate Allergy Unknown Vomiting Verified 03/12/17 18:53 metoclopramide HCl Allergy Unknown dystonia Verified 03/12/17 18:52 [From [facility]] Home Medications: Ambulatory Orders Docusate Sodium [Colace -] 100 mg PO HS #30 tab MDD 1 03/20/17 Pantoprazole Sodium [Protonix -] 40 mg PO BID #60 tab MDD 2 03/20/17 Aa/[place] Shelly,Whey/Arg/C/Zn/Cu [Lps Critical Care Liquid] 30 ml PO TID 07/05/17 Acetaminophen 650 mg PO PRN 07/05/17 Ammonium Lactate Cream [Lac-Hydrin 12% *Cream*] 1 applic TP BID 07/05/17 Ascorbate Calcium [Vitamin C] 500 mg PO DAILY 07/05/17 Bismuth Tribromoph/Petrolatum [Xeroform Petrolatum Dress] 1 each TP PRN Diazepam [Valium] 5 mg PO BID MDD 1 07/05/17 Folic Acid 3 mg PO DAILY 07/05/17 Furosemide [Lasix] 40 mg PO BID 07/05/17 Hydroxychloroquine Sulfate [Plaquenil] 400 mg PO DAILY 07/05/17 Ipratropium/Albuterol Sulfate [Iprat-Albut 0.5-3(2.5) mg/3 ml] 3 ml IH PRN 07/05 Morphine *Immediate Release* [Msir -] 15 mg PO Q4H PRN 07/05/17 Morphine *Sr* [Ms Contin -] 30 mg PO Q12H 07/05/17 Potassium Chloride 40 meq PO DAILY 07/05/17 Quetiapine Fumarate [Seroquel -] 50 mg PO HS 07/05/17 Topiramate 25 mg PO HS 07/05/17 Anemia: No Asthma: No Cancer: No Cardiac Disorders: Yes (stemi) CVA: No COPD: No CHF: No Dementia: No Diabetes: No GI Disorders: Yes (gerd) Disorders: No HTN: No Hypercholesterolemia: No Liver Disease: No Seizures: No Thyroid Disease: No - Suicide/Smoking/Psychosocial Hx Smoking History: Never smoked Have you smoked in the past 12 months: No Hx Alcohol Use: No (UNKNOWN) Drug/Substance Use Hx: No Hx Substance Use Treatment: No Review of Systems - Review of Systems Constitutional: No: Chills, Fever HEENTM: No: Blurred Vision, Double Vision Respiratory: No: Shortness of Breath Cardiac (ROS): No: Chest Pain *Physical Exam - Physical Exam General Appearance: Yes: Nourished HEENT: positive: EOMI, DAVID Neck: positive: Trachea midline, Supple Respiratory/Chest: positive: Lungs Clear Cardiovascular: positive: S1, S2 Integumentary: positive: Other (LLL lateral hip wound with erythema, purulent discharge) Neurologic: positive: Fully Oriented, Alert ED Treatment Course - LABORATORY CBC & Chemistry Diagram: 07/06/17 06:30 07/06/17 06:30 Medical Decision Making - Medical Decision Making 07/06/17 16:37 Patient is a 46 y.o. female who presents for admission for PICC line insertion. At presentation patient is hemodynamically stable and has no active medical complaints. Infectious Disease evaluated patient @ bedside and requests CT Scan today and MRI as inpatient to evaluate for possible osteomyelitis. Patient to be admitted to Dr. Rodriguez for further management. *DC/Admit/Observation/Transfer Diagnosis at time of Disposition: Needs peripherally inserted central catheter (PICC) - Referrals - Patient Instructions - Post Discharge Activity
[2017-07-05] MEDS ORDERED: morphine SO4 SUSTAINED ACTING 15 MG TABLET.SA PO ONE (12:39)
[2017-07-05] MEDS ORDERED: morphine SO4 SUSTAINED ACTING 15 MG TABLET.SA ONE ×2 (12:40→21:10)
[2017-07-05] MEDS ORDERED: morphine SULFATE IMMEDIATE RELEASE 30 MG TAB PO ONE (12:40)
--- NOTE | 2017-07-05 12:48 | PDOC ---
Attending Attestation - Resident Resident Name: Joan Shelby - ED Attending Attestation I have performed the following: I have examined & evaluated the patient, The case was reviewed & discussed with the resident, I agree w/resident's findings & plan, Exceptions are as noted - Medical Decision Making 07/05/17 12:48 A portion of this note was written by my scribe, my supervision. Vital Signs Temp Pulse Resp BP Pulse Ox 98.3 F 73 18 102/79 100 07/05/17 11:57 07/05/17 11:57 07/05/17 11:57 07/05/17 11:57 07/05/17 11:57 46-year-old female with history of schizophrenia, lupus, pericarditis, ulcers sent in for PICC line insertion. Patient has a chronic proximal left hip ulcer. Patient denies any other symptoms other than her chronic pain. Denies fevers or chills. Case discussed with Dr. Rodriguez by Dr. Shelby. She admits the patient. <Alexis Ybarra - Last Filed: 07/05/17 12:42> - HPI HPI: 07/05/17 12:51 The patient is a 46 year old female with a significant PMH schizophrenia, lupus , pericarditis, and ulcers who presents from [facility] to the emergency department sent in by her PCP, Dr. Rivera, for placement of a PICC line. The patient states she normally takes 30mg twice a day for chronic pain but denies taking any pain meds today. The patient denies chest pain, shortness of breath, headache and dizziness. Denies fever, chills, nausea, vomit, diarrhea and constipation. Denies dysuria, frequency, urgency and hematuria. Allergies: NKA Past surgical history: None reported. Social history: No reported alcohol, cigarette or drug use. PCP: Dr. Rivera - Physicial Exam PE: 07/05/17 12:52 GENERAL: Awake, alert, and fully oriented, in no acute distress HEAD: No signs of trauma EYES: PERRLA, EOMI, sclera anicteric, conjunctiva clear ENT: Auricles normal inspection, hearing grossly normal, nares patent, oropharynx clear without exudates. Moist mucosa NECK: Normal ROM, supple, no lymphadenopathy, JVD, or masses LUNGS: Breath sounds equal, clear to auscultation bilaterally. No wheezes, and no crackles HEART: Regular rate and rhythm, normal S1 and S2, no murmurs, rubs or gallops ABDOMEN: Soft, nontender, normoactive bowel sounds. No guarding, no rebound. No masses EXTREMITIES: (+) Large left lateral proximal ulcer, mild drainage. Normal range of motion, no edema. No clubbing or cyanosis. No cords, erythema, or tenderness NEUROLOGICAL: Cranial nerves II through XII grossly intact. Normal speech, normal gait SKIN: Warm, Dry, normal turgor, no rashes or lesions noted. <Tierra Garcia - Last Filed: 07/05/17 12:52>
--- NOTE | 2017-07-05 12:51 | HP ---
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 DERMATOLOGIST: Yes: Other (SLE) Psych: Yes: Depression (questionable , denies suicidal ideation at present, or suicide attempt with prescribed medications, ) Rheumatology: Yes: Lupus - Smoking History Smoking history: Never smoked Have you smoked in the past 12 months: No - Alcohol/Substance Use Hx Alcohol Use: No (UNKNOWN) History of Substance Use: reports: Prescription Home Medications - Allergies Allergies/Adverse Reactions: Allergies Allergy/AdvReac Type Severity Reaction Status Date / Time methotrexate Allergy Unknown Vomiting Verified 03/12/17 18:53 metoclopramide HCl Allergy Unknown dystonia Verified 03/12/17 18:52 [From [facility]] - Home Medications Home Medications: Ambulatory Orders Docusate Sodium [Colace -] 100 mg PO HS #30 tab MDD 1 03/20/17 Naph,Mb-Db/K pH,Mbdb [PHOS-NaK PACKET -] 1 packet PO TID packet 03/20/17 Pantoprazole Sodium [Protonix -] 40 mg PO BID #60 tab MDD 2 03/20/17 Prednisone [Deltasone -] 5 mg PO DAILY tablet 03/20/17 Risperidone [Risperdal -] 1 mg PO BID tablet 03/20/17 Zolpidem Tartrate [Ambien] 5 mg PO HS PRN #10 tablet MDD 1 03/20/17 Aa/[place] Shelly,[place]hey/Arg/C/Zn/Cu [Lps Critical Care Liquid] 30 ml PO TID 07/05/17 Acetaminophen 650 mg PO PRN 07/05/17 Ammonium Lactate Cream [Lac-Hydrin 12% *Cream*] 1 applic TP BID 07/05/17 Ascorbate Calcium [Vitamin C] 500 mg PO DAILY 07/05/17 Diazepam [Valium] 5 mg PO BID MDD 1 07/05/17 Hydroxychloroquine Sulfate [Plaquenil] 400 mg PO DAILY 07/05/17 Ipratropium/Albuterol Sulfate [Iprat-Albut 0.5-3(2.5) mg/3 ml] 3 ml IH PRN 07/05 Potassium Chloride 40 meq PO DAILY 07/05/17 Quetiapine Fumarate [Seroquel -] 50 mg PO HS 07/05/17 Topiramate 25 mg PO HS 07/05/17 Review of Systems - Review of Systems Constitutional: reports: No Symptoms Eyes: reports: No Symptoms HENT: reports: No Symptoms Neck: reports: No Symptoms Cardiovascular: reports: No Symptoms Physical Examination Vital Signs: Vital Signs Temperature 98.3 F 07/05/17 11:57 Pulse Rate 73 07/05/17 11:57 Respiratory Rate 18 07/05/17 11:57 Blood Pressure 102/79 07/05/17 11:57 O2 Sat by Pulse Oximetry (%) 100 07/05/17 11:57 Constitutional: Yes: Calm Neck: Yes: Trachea Midline Cardiovascular: Yes: Regular Rate and Rhythm, S1, S2 Respiratory: Yes: CTA Bilaterally Gastrointestinal: Yes: Normal Bowel Sounds, Soft Edema: Yes Wound/Incision: Yes: Dressing Removed (left hip wound tunneling noted) Neurological: Yes: Alert, Oriented Problem List - Problems (1) Wound, open, hip or thigh Assessment/Plan: observation admission cultures on 06/28 shows MRSA and pseudomonas will give iv vanco one dose and will get ID to see patient duration of abx will defer to ID Microbiology 06/27/17 16:45 Hip - Left Gram Stain - Final 06/27/17 16:45 Hip - Left Wound Culture - Final Pseudomonas Aeruginosa Strep Agalactiae Group B Mr S Aureus Enterococcus Faecalis pain control with morphine and stool softners Code(s): S71.009A - UNSPECIFIED OPEN WOUND, UNSPECIFIED HIP, INITIAL ENCOUNTER; S71.109A - UNSPECIFIED OPEN WOUND, UNSPECIFIED THIGH, INITIAL ENCOUNTER (2) Lupus Assessment/Plan: plaquenil daily 400mg gets acthar sq weekly 20units and methotrexate 15mg s/q weekly Code(s): L93.0 - DISCOID LUPUS ERYTHEMATOSUS (3) Edema Assessment/Plan: lasix and Kdur Code(s): R60.9 - EDEMA, UNSPECIFIED
[2017-07-05] MEDS ORDERED: morphine SO4 SUSTAINED ACTING 30 MG TABLET.SA PO SCH (13:00)
[2017-07-05] MEDS: VANCOMYCIN 1 GRAM (PRE-DOCKED) 1,000 MG/250 ML BAG IVPB ONE ×2 (13:54→14:04)
[2017-07-05] MEDS ORDERED: VANCOMYCIN 1 GRAM (PRE-DOCKED) 1,000 MG/250 ML BAG IVPB ONE (13:55)
[2017-07-05 13:56] LABS: ALK PHOS 65 U/L (45-117); ANION GAP 9 (8-16); BILIRUBIN,TOTAL 0.4 mg/dL (0.2-1.0); BLOOD UREA NITROGEN 17 mg/dL (7-18); CALCIUM 9.4 mg/dL (8.5-10.1); CHLORIDE 104 mmol/L (98-107); CO2 28 mmol/L (21-32); CREATININE 1.1 mg/dL (0.55-1.02); GLUCOSE,RANDOM 79 mg/dL (74-106); SGOT/AST 19 U/L (15-37); SGPT/ALT 13 U/L (12-78); SODIUM 141 mmol/L (136-145); TOT PROT 8.5 g/dl (6.4-8.2)
[2017-07-05 14:00] LABS: BASO % 0.7 % (0-2.0); EOS % 1.3 % (0-4.5); HEMATOCRIT 35.8 % (32.4-45.2); HEMOGLOBIN 10.9 GM/dL (10.7-15.3); LYMPH % 27.2 % (8-40); MCH 21.2 pg (25.7-33.7); MCHC 30.5 g/dl (32.0-36.0); MEAN CELL VOLUME 69.6 fl (80-96); MONO % 10.3 % (3.8-10.2); NEUT % 60.5 % (42.8-82.8); PLATELET COUNT 269 K/MM3 (134-434); RBC 5.14 M/mm3 (3.60-5.2); RDW 19.7 % (11.6-15.6); WHITE BLOOD COUNT 4.3 K/mm3 (4.0-10.0)
[2017-07-05] MEDS: FUROSEMIDE 40 MG TABLET (FP) PO SCH ×2 (14:12→14:51)
--- NOTE | 2017-07-05 14:12 | PN ---
Progress Note, Physician Chief Complaint: ID Young woman 46 with history of SLE followed at [facility] and now resident of [facility] "wound care" left hip wound. Patient is a poor historian and we dont have alot of records here at this time. Apparently referred now for chronically draining left hip wound and IV antibiotics ?? No prior trauma history and no prior prosthetic material in the hip. She is not febrile nor use drugs and says she is HIV negative. HEr records say she has schizophrenia but patient sasy while she has been on Seroquel she is not schizophrenic and this is mislabeled. For her lupus take Acthar Methotrexate - Current Medication List Current Medications: Active Medications Diazepam (Valium -) 5 mg PO BID MOI Docusate Sodium (Colace -) 300 mg PO HS MOI Furosemide (Lasix -) 40 mg PO BID MOI Hydroxychloroquine Sulfate (Plaquenil -) 400 mg PO DAILY MOI Morphine Sulfate (Msir -) 15 mg PO Q4H PRN PRN Reason: PAIN LEVEL 7 - 10 Morphine Sulfate (Ms Contin -) 30 mg PO Q12H [facility] Last Admin: 07/05/17 13:38 Dose: Not Given Mupirocin (Bactroban 2% Cream -) 1 applic TP BID MOI Pantoprazole Sodium (Protonix -) 40 mg PO BID MOI Potassium Chloride (K-Dur -) 40 meq PO DAILY@0800 MOI Quetiapine Fumarate (Seroquel -) 50 mg PO HS MOI Topiramate (Topamax -) 25 mg PO HS MOI Vancomycin HCl (Vancomycin (Pre-Docked)) 1,000 mg IVPB ONCE ONE PRN Reason: Protocol Stop: 07/05/17 13:07 Last Admin: 07/05/17 13:54 Dose: 1,000 mg - Objective Vital Signs: Vital Signs Temperature 98.3 F 07/05/17 11:57 Pulse Rate 73 07/05/17 11:57 Respiratory Rate 18 07/05/17 11:57 Blood Pressure 102/79 07/05/17 11:57 O2 Sat by Pulse Oximetry (%) 100 07/05/17 11:57 Extremities: Yes: Other (Chronically draining left hip sius tract no erythema or induration) Problem List - Problems (1) Chronic osteomyelitis Code(s): M86.60 - OTHER CHRONIC OSTEOMYELITIS, UNSPECIFIED SITE (2) Wound, open, hip or thigh Code(s): S71.009A - UNSPECIFIED OPEN WOUND, UNSPECIFIED HIP, INITIAL ENCOUNTER; S71.109A - UNSPECIFIED OPEN WOUND, UNSPECIFIED THIGH, INITIAL ENCOUNTER (3) Lupus (systemic lupus erythematosus) Code(s): M32.9 - SYSTEMIC LUPUS ERYTHEMATOSUS, UNSPECIFIED Assessment/Plan Laboratory Tests 07/05/17 07/05/17 07/05/17 13:21 13:21 13:21 WBC Pending Hgb Pending ESR Pending BUN 17 Creatinine 1.1 H Creat Clearance w eGFR 53.71 Alkaline Phosphatase 65 Total Protein 8.5 H Albumin 4.0 Assessment SLE with chronic left hip wounds previously debrided in Mar 2017 but draining now and sent for IV antibiotics Concern would be underlying chronic osteomyelitis of the hip Plan Plain film xray of the hip CT scan hip MRI of the hip ESR and CRP Vancomycin and Cefepime ? halfway antibiotics PICC Julieth VILLANUEVA
[2017-07-05] MEDS ORDERED: CEFEPIME HCL 2 GM VIAL (RESTRICTED TO ID) IVPB SCH (14:30)
[2017-07-05 14:38] LABS: ADD RBC MORPHOLOGY YES
[2017-07-05] MEDS ORDERED: FUROSEMIDE 40 MG TABLET (FP) ONE (14:49)
--- NOTE | 2017-07-05 15:07 | CONS ---
INDICATION FOR CONSULTATION DATE OF CONSULTATION: 07/05/2017 HISTORY OF PRESENT ILLNESS: This is a 46-year-old female with a known history of SLE, who I am asked to see for a chronic non-healing wound of the left hip, which has been followed by Dr. Ca of Plastic Surgery. She is currently in the [facility] and is a poor historian, noting only that she had a history of severe lupus, treated by Rheumatology at [facility] in the past. She used to be on prednisone but currently is on Acthar, Plaquenil, and methotrexate weekly. At some point, she may have had an extended period of hospitalization where she was, according to her history, unconscious and subsequently developed a large wound of the left hip. By the examination of Dr. Ca, there was a large open wound located on the lateral aspect over the trochanteric area with purulent material noted when the patient was moved, 2 x 1.5 x 2.5 at the tunnel , and the skin around the wound is minimally erythematous with no odor or swelling. A wound culture is polymicrobial with group B streptococcus, pseudomonas, MRSA, and Enterococcus faecalis. She is not diabetic. She states she has been HIV tested in the past, and the wound has been treated with Bactroban 3 times a week and irrigated with Hibiclens solution. PAST MEDICAL HISTORY: Includes lupus with pleural pericarditis, schizophrenia, prolonged hospitalization. MEDICATIONS: Methotrexate, Acthar, Plaquenil. ALLERGIES: PENICILLIN with a rash. SOCIAL HISTORY: Denies smoking or alcohol. HIV tested negative. No travel. FAMILY HISTORY: Reviewed, noncontributory. REVIEW OF SYSTEMS: Respiratory: No cough, shortness of breath, pleuritic chest pain. Cardiac: No chest pain, palpitations, syncope, murmur. Gastrointestinal: No nausea, vomiting, diarrhea, abdominal pain, weight loss. Genitourinary: No dysuria, hematuria, urinary frequency. PHYSICAL EXAMINATION: General: Revealed a [id number] woman, alert, and in no acute distress. Vital Signs: The temperature was 98.3, pulse 73, blood pressure 102/79, respirations 18. Neck: Supple. Lungs: Clear to P&A. Heart: S1, S2. Regular rhythm without audible murmur. Abdomen: Soft, nontender, without hepatosplenomegaly. Extremities: Revealed the left hip wound draining as noted in history of present illness. DIAGNOSTIC DATA: Chemistries: BUN 17, creatinine 1.1. CRP 0.3, total protein 8.5, albumin 4.0. White count currently pending. X-ray has not yet been ordered. ASSESSMENT: 1. Chronic nonhealing wound of the left hip with tunneling and purulent drainage noted per Dr. Ca who has been seeing her for wound care. My concern would be the possibility of an underlying osteomyelitis given the chronicity of the wound. She has a polymicrobial wound culture to help guide empiric treatment for osteomyelitis. We will give her vancomycin and cefepime. This was discussed with Dr. Rivera. We will get an x-ray of the hip along with an MRI of the hip to look for underlying osteomyelitis. CT hip could also be done quickly Note: that the patient is immunocompromised from her lupus. 2. Last, she has a history of schizophrenia, but this is a correct diagnosis according to the patient. ESPERANZA QUINONES M.D. [id number] TAMMIE
[2017-07-05] MEDS: CEFEPIME 2 GM in DEXTROSE 5%-WATER - 100 ML IVPB SCH ×2 (17:19)
[2017-07-05] MEDS: morphine SULFATE IMMEDIATE RELEASE 30 MG TAB PO PRN (17:24)
[2017-07-05] MEDS ORDERED: morphine SULFATE IMMEDIATE RELEASE 30 MG TAB ONE (17:27)
[2017-07-05 19:16] LABS: ANISOCYTOSIS 1+
[2017-07-05 19:17] LABS: PLATELET ESTIMATE ADEQUATE
[2017-07-05] MEDS ORDERED: PANTOPRAZOLE 40 MG TABLET (FP) ONE (19:41)
[2017-07-05] MEDS ORDERED: diazePAM 5 MG TABLET ONE (19:41)
[2017-07-05] MEDS ORDERED: QUEtiapine FUMARATE 25 MG TABLET (FP) ONE (19:41)
[2017-07-05] MEDS ORDERED: TOPIRAMATE 25 MG TABLET (FP) ONE (19:42)
[2017-07-05] MEDS ORDERED: DOCUSATE SODIUM 100 MG CAPSULE (FP) PO ONE (19:42)
[2017-07-05] MEDS: DOCUSATE SODIUM 100 MG CAPSULE (FP) PO SCH (22:05)
[2017-07-05] MEDS: morphine SO4 SUSTAINED ACTING 30 MG TABLET.SA PO SCH (22:05)
[2017-07-05] MEDS: QUEtiapine FUMARATE 50 MG TABLET PO SCH (22:06)
[2017-07-05] MEDS: MUPIROCIN CA 2% TOPICAL CREAM 15 GM TUBE TP SCH (22:06)
[2017-07-05] MEDS: TOPIRAMATE 25 MG TABLET (FP) PO SCH (22:06)
[2017-07-05] MEDS: PANTOPRAZOLE 40 MG TABLET (FP) PO SCH (22:06)
[2017-07-05] MEDS: diazePAM 5 MG TABLET PO SCH (22:06)
[2017-07-06] MEDS ORDERED: VANCOMYCIN 1 GRAM (PRE-DOCKED) 1,000 MG/250 ML BAG IVPB ONE (01:07)
[2017-07-06] MEDS: VANCOMYCIN 1,000 MG in DEXTROSE 5%-WATER - 250 ML IVPB SCH ×2 (01:25→17:35)
[2017-07-06] MEDS ORDERED: CEFEPIME 2 GM/200 ML BAG IVPB ONE (02:13)
[2017-07-06] MEDS: CEFEPIME 2 GM in DEXTROSE 5%-WATER - 100 ML IVPB SCH ×3 (03:25→21:00)
[2017-07-06] MEDS ORDERED: morphine SULFATE IMMEDIATE RELEASE 30 MG TAB ONE (05:18)
[2017-07-06] MEDS: morphine SULFATE IMMEDIATE RELEASE 30 MG TAB PO PRN ×2 (05:31→20:04)
[2017-07-06] MEDS: FUROSEMIDE 40 MG TABLET (FP) PO SCH (06:07)
[2017-07-06 07:31] LABS: BASO % 1.2 % (0-2.0); EOS % 2.5 % (0-4.5); HEMATOCRIT 34.4 % (32.4-45.2); HEMOGLOBIN 10.3 GM/dL (10.7-15.3); LYMPH % 38.4 % (8-40); MCHC 29.9 g/dl (32.0-36.0); MEAN CELL VOLUME 70.2 fl (80-96); MEAN PLT VOLUME 9.7 fl (7.5-11.1); MONO % 9.6 % (3.8-10.2); NEUT % 48.3 % (42.8-82.8); PLATELET COUNT 237 K/MM3 (134-434); RDW 20.1 % (11.6-15.6)
[2017-07-06 08:28] LABS: CHLORIDE 105 mmol/L (98-107); POTASSIUM 3.9 mmol/L (3.5-5.1); SODIUM 141 mmol/L (136-145)
[2017-07-06 08:34] LABS: ALBUMIN 3.6 g/dl (3.4-5.0); ALK PHOS 56 U/L (45-117); ANION GAP 11 (8-16); BILIRUBIN,TOTAL 0.5 mg/dL (0.2-1.0); BLOOD UREA NITROGEN 13 mg/dL (7-18); CO2 25 mmol/L (21-32); CREATININE 1.1 mg/dL (0.55-1.02); GLUCOSE,RANDOM 79 mg/dL (74-106); MAGNESIUM 2.2 mg/dL (1.8-2.4); SGOT/AST 19 U/L (15-37); SGPT/ALT 12 U/L (12-78); TOT PROT 7.5 g/dl (6.4-8.2)
[2017-07-06] MEDS: POTASSIUM CHLORIDE TABS 20 MEQ TABLET.ER (FP) PO SCH (08:35)
[2017-07-06] MEDS ORDERED: POTASSIUM CHLORIDE TABS 20 MEQ TABLET.ER (FP) PO ONE (08:38)
[2017-07-06] MEDS: HYDROXYCHLOROQUINE SO4 200 MG TABLET (FP) PO SCH (10:43)
[2017-07-06] MEDS: PANTOPRAZOLE 40 MG TABLET (FP) PO SCH ×2 (10:43→22:54)
[2017-07-06] MEDS: diazePAM 5 MG TABLET PO SCH ×2 (10:45→22:54)
[2017-07-06] MEDS: morphine SO4 SUSTAINED ACTING 30 MG TABLET.SA PO SCH ×2 (10:45→22:52)
[2017-07-06] MEDS ORDERED: diazePAM 5 MG TABLET ONE (10:45)
[2017-07-06] MEDS ORDERED: morphine SO4 SUSTAINED ACTING 15 MG TABLET.SA ONE (10:46)
--- NOTE | 2017-07-06 12:28 | PN ---
Progress Note, Physician Chief Complaint: spoke to ID to see patient regarding the piccline and duration of antibiotic spoke to patient regarding need for /mRI to get it done to determine if there is osteomylitis - Current Medication List Current Medications: Active Medications Diazepam (Valium -) 5 mg PO BID [facility] Last Admin: 07/06/17 10:45 Dose: 5 mg Docusate Sodium (Colace -) 300 mg PO HS [facility] Last Admin: 07/05/17 22:05 Dose: Not Given Furosemide (Lasix -) 40 mg PO BIDLASIX [facility] Last Admin: 07/06/17 06:07 Dose: Not Given Hydroxychloroquine Sulfate (Plaquenil -) 400 mg PO DAILY [facility] Last Admin: 07/06/17 10:43 Dose: 400 mg IV Flush (Picc Line Flush) 8 ml IVPUSH PRN PRN PRN Reason: Protocol Vancomycin HCl 1,000 mg/ (Dextrose) 250 mls @ 250 mls/hr IVPB BID@0100,1300 MOI PRN Reason: Protocol Last Admin: 07/06/17 01:25 Dose: 250 mls/hr Cefepime HCl 2 gm/ Dextrose 100 mls @ 200 mls/hr IVPB Q8H-IV [facility] Last Admin: 07/06/17 11:17 Dose: 200 mls/hr Morphine Sulfate (Msir -) 15 mg PO Q4H PRN PRN Reason: PAIN LEVEL 7 - 10 Last Admin: 07/06/17 05:31 Dose: 15 mg Morphine Sulfate (Ms Contin -) 30 mg PO BID [facility] Last Admin: 07/06/17 10:45 Dose: 30 mg Mupirocin (Bactroban 2% Cream -) 1 applic TP BID [facility] Last Admin: 07/05/17 22:06 Dose: Not Given Pantoprazole Sodium (Protonix -) 40 mg PO BID [facility] Last Admin: 07/06/17 10:43 Dose: 40 mg Potassium Chloride (K-Dur -) 40 meq PO DAILY@0800 [facility] Last Admin: 07/06/17 08:35 Dose: 40 meq Quetiapine Fumarate (Seroquel -) 50 mg PO HS [facility] Last Admin: 07/05/17 22:06 Dose: 50 mg Topiramate (Topamax -) 25 mg PO [facility] Last Admin: 07/05/17 22:06 Dose: 25 mg - Objective Vital Signs: Vital Signs Temperature 98.4 F 07/06/17 07:18 Pulse Rate 72 07/06/17 09:09 Respiratory Rate 16 07/06/17 09:09 Blood Pressure 148/69 07/06/17 09:09 O2 Sat by Pulse Oximetry (%) 99 07/06/17 09:09 Constitutional: Yes: Calm Cardiovascular: Yes: Regular Rate and Rhythm, S1, S2 Respiratory: Yes: CTA Bilaterally Gastrointestinal: Yes: Normal Bowel Sounds, Soft Wound/Incision: Yes: Other (left hip wound) Labs: CBC, BMP 07/06/17 06:30 07/06/17 06:30 Problem List - Problems (1) Wound, open, hip or thigh Assessment/Plan: observation admission cultures on 06/28 shows MRSA and pseudomonas will give iv vanco one dose and will get ID to see patient duration of abx will defer to ID- MRI ordered to asses osteomyelitis Microbiology 06/27/17 16:45 Hip - Left Gram Stain - Final 06/27/17 16:45 Hip - Left Wound Culture - Final Pseudomonas Aeruginosa Strep Agalactiae Group B Mr S Aureus Enterococcus Faecalis pain control with morphine and stool softners picc line order placed as well Code(s): S71.009A - UNSPECIFIED OPEN WOUND, UNSPECIFIED HIP, INITIAL ENCOUNTER; S71.109A - UNSPECIFIED OPEN WOUND, UNSPECIFIED THIGH, INITIAL ENCOUNTER (2) Lupus Assessment/Plan: plaquenil daily 400mg gets acthar sq weekly 20units and methotrexate 15mg s/q weekly Code(s): L93.0 - DISCOID LUPUS ERYTHEMATOSUS (3) Edema Assessment/Plan: lasix and Kdur Code(s): R60.9 - EDEMA, UNSPECIFIED
--- NOTE | 2017-07-06 12:35 | PN ---
Progress Note (short form) - Note Progress Note: plan MRI today pic line insetion and then dc to [facility] later today Problem List - Problems (1) Wound, open, hip or thigh Code(s): S71.009A - UNSPECIFIED OPEN WOUND, UNSPECIFIED HIP, INITIAL ENCOUNTER; S71.109A - UNSPECIFIED OPEN WOUND, UNSPECIFIED THIGH, INITIAL ENCOUNTER (2) Lupus Code(s): L93.0 - DISCOID LUPUS ERYTHEMATOSUS (3) Edema Code(s): R60.9 - EDEMA, UNSPECIFIED
--- NOTE | 2017-07-06 15:03 | PN ---
Progress Note, Physician Chief Complaint: ID Discussed with Dr Rodriguez CT imaging shows as suspected communication with greater trochanter ! Vanomycin and Cefepime - Current Medication List Current Medications: Active Medications Diazepam (Valium -) 5 mg PO BID [facility] Last Admin: 07/06/17 10:45 Dose: 5 mg Docusate Sodium (Colace -) 300 mg PO HS [facility] Last Admin: 07/05/17 22:05 Dose: Not Given Hydroxychloroquine Sulfate (Plaquenil -) 400 mg PO DAILY [facility] Last Admin: 07/06/17 10:43 Dose: 400 mg IV Flush (Picc Line Flush) 8 ml IVPUSH PRN PRN PRN Reason: Protocol Vancomycin HCl 1,000 mg/ (Dextrose) 250 mls @ 250 mls/hr IVPB BID@0100,1300 MOI PRN Reason: Protocol Last Admin: 07/06/17 01:25 Dose: 250 mls/hr Cefepime HCl 2 gm/ Dextrose 100 mls @ 200 mls/hr IVPB Q8H-IV [facility] Last Admin: 07/06/17 11:17 Dose: 200 mls/hr Sodium Chloride (Normal Saline -) 1,000 mls @ 100 mls/hr IV ASDIR [facility] Morphine Sulfate (Msir -) 15 mg PO Q4H PRN PRN Reason: PAIN LEVEL 7 - 10 Last Admin: 07/06/17 05:31 Dose: 15 mg Morphine Sulfate (Ms Contin -) 30 mg PO BID [facility] Last Admin: 07/06/17 10:45 Dose: 30 mg Mupirocin (Bactroban 2% Cream -) 1 applic TP BID [facility] Last Admin: 07/05/17 22:06 Dose: Not Given Pantoprazole Sodium (Protonix -) 40 mg PO BID [facility] Last Admin: 07/06/17 10:43 Dose: 40 mg Potassium Chloride (K-Dur -) 40 meq PO DAILY@0800 [facility] Last Admin: 07/06/17 08:35 Dose: 40 meq Quetiapine Fumarate (Seroquel -) 50 mg PO [facility] Last Admin: 07/05/17 22:06 Dose: 50 mg Topiramate (Topamax -) 25 mg PO [facility] Last Admin: 07/05/17 22:06 Dose: 25 mg - Objective Vital Signs: Vital Signs Temperature 98.4 F 01/26/18 07:18 Pulse Rate 72 07/06/17 09:09 Respiratory Rate 16 07/06/17 09:09 Blood Pressure 148/69 07/06/17 09:09 O2 Sat by Pulse Oximetry (%) 99 07/06/17 09:09 Integumentary: Yes: Other (Large draining sinus tract hip) Labs: CBC, BMP 07/06/17 06:30 07/06/17 06:30 Problem List - Problems (1) Chronic osteomyelitis Code(s): M86.60 - OTHER CHRONIC OSTEOMYELITIS, UNSPECIFIED SITE (2) Wound, open, hip or thigh Code(s): S71.009A - UNSPECIFIED OPEN WOUND, UNSPECIFIED HIP, INITIAL ENCOUNTER; S71.109A - UNSPECIFIED OPEN WOUND, UNSPECIFIED THIGH, INITIAL ENCOUNTER (3) Lupus (systemic lupus erythematosus) Code(s): M32.9 - SYSTEMIC LUPUS ERYTHEMATOSUS, UNSPECIFIED Assessment/Plan Microbiology 06/27/17 16:45 Hip - Left Gram Stain - Final 06/27/17 16:45 Hip - Left Wound Culture - Final Pseudomonas Aeruginosa Strep Agalactiae Group B Mr S Aureus Enterococcus Faecalis 07/05/17 13:21 Blood - Peripheral Venous Blood Culture - Preliminary NO GROWTH OBTAINED AFTER 24 HOURS, INCUBATION TO CONTINUE FOR 4 DAYS. 07/05/17 13:10 Blood - Peripheral Venous Blood Culture - Preliminary NO GROWTH OBTAINED AFTER 24 HOURS, INCUBATION TO CONTINUE FOR 4 DAYS. Laboratory Tests 07/05/17 07/05/17 07/06/17 13:21 13:21 06:30 WBC 4.0 Hgb 10.3 L Plt Count 237 ESR 23 H BUN Creatinine Creat Clearance w eGFR C-Reactive Protein 0.3 07/06/17 06:30 WBC Hgb Plt Count ESR BUN 13 Creatinine 1.1 H Creat Clearance w eGFR 53.71 C-Reactive Protein Assessment Draining sinus tract tract with underlying osteomyelitis Plan Continue antibiotics Orthopedic consult assisted antibiotics Vanco level
[2017-07-06] MEDS: SODIUM CHLORIDE 1,000 ML IV SCH (17:36)
[2017-07-06] MEDS: MUPIROCIN CA 2% TOPICAL CREAM 15 GM TUBE TP SCH ×2 (19:00→22:51)
[2017-07-06 19:19] VITALS: BMI 23.3
[2017-07-06] MEDS ORDERED: QUEtiapine FUMARATE 25 MG TABLET (FP) ONE (21:25)
[2017-07-06] MEDS: DOCUSATE SODIUM 100 MG CAPSULE (FP) PO SCH (22:51)
[2017-07-06] MEDS: QUEtiapine FUMARATE 50 MG TABLET PO SCH (22:53)
[2017-07-06] MEDS: TOPIRAMATE 25 MG TABLET (FP) PO SCH (22:54)
[2017-07-07] MEDS: VANCOMYCIN 1,000 MG in DEXTROSE 5%-WATER - 250 ML IVPB SCH ×2 (01:11→13:19)
[2017-07-07] MEDS: CEFEPIME 2 GM in DEXTROSE 5%-WATER - 100 ML IVPB SCH ×3 (02:20→17:45)
[2017-07-07] MEDS: morphine SULFATE IMMEDIATE RELEASE 30 MG TAB PO PRN ×2 (07:49→17:52)
[2017-07-07] MEDS: POTASSIUM CHLORIDE TABS 20 MEQ TABLET.ER (FP) PO SCH (07:50)
[2017-07-07] MEDS ORDERED: PT OWN MED DRAWER 7, Y5N ONE ×4 (09:53→16:59)
[2017-07-07] MEDS: PANTOPRAZOLE 40 MG TABLET (FP) PO SCH ×2 (10:18→21:56)
[2017-07-07] MEDS: diazePAM 5 MG TABLET PO SCH ×2 (10:18→21:55)
[2017-07-07] MEDS: morphine SO4 SUSTAINED ACTING 30 MG TABLET.SA PO SCH ×2 (10:18→21:54)
[2017-07-07] MEDS: HYDROXYCHLOROQUINE SO4 200 MG TABLET (FP) PO SCH (10:20)
--- NOTE | 2017-07-07 12:37 | PN ---
Progress Note, Physician - Current Medication List Current Medications: Active Medications Diazepam (Valium -) 5 mg PO BID [facility] Last Admin: 07/07/17 10:18 Dose: 5 mg Docusate Sodium (Colace -) 300 mg PO [facility] Last Admin: 07/06/17 22:51 Dose: Not Given Hydroxychloroquine Sulfate (Plaquenil -) 400 mg PO DAILY [facility] Last Admin: 07/07/17 10:20 Dose: 400 mg IV Flush (Picc Line Flush) 8 ml IVPUSH PRN PRN PRN Reason: Protocol Vancomycin HCl 1,000 mg/ (Dextrose) 250 mls @ 250 mls/hr IVPB BID@0100,1300 MOI PRN Reason: Protocol Last Admin: 07/07/17 01:11 Dose: 250 mls/hr Cefepime HCl 2 gm/ Dextrose 100 mls @ 200 mls/hr IVPB Q8H-IV [facility] Last Admin: 07/07/17 10:19 Dose: 200 mls/hr Sodium Chloride (Normal Saline -) 1,000 mls @ 100 mls/hr IV ASDIR [facility] Last Admin: 07/06/17 17:36 Dose: Not Given Morphine Sulfate (Msir -) 15 mg PO Q4H PRN PRN Reason: PAIN LEVEL 7 - 10 Last Admin: 07/07/17 07:49 Dose: 15 mg Morphine Sulfate (Ms Contin -) 30 mg PO BID [facility] Last Admin: 07/07/17 10:18 Dose: 30 mg Mupirocin (Bactroban 2% Cream -) 1 applic TP BID [facility] Last Admin: 07/06/17 22:51 Dose: Not Given Pantoprazole Sodium (Protonix -) 40 mg PO BID [facility] Last Admin: 07/07/17 10:18 Dose: 40 mg Potassium Chloride (K-Dur -) 40 meq PO DAILY@0800 [facility] Last Admin: 07/07/17 07:50 Dose: 40 meq Quetiapine Fumarate (Seroquel -) 50 mg PO [facility] Last Admin: 07/06/17 22:53 Dose: 50 mg Topiramate (Topamax -) 25 mg PO [facility] Last Admin: 07/06/17 22:54 Dose: 25 mg - Objective Vital Signs: Vital Signs Temperature 98.4 F 07/07/17 11:00 Pulse Rate 69 07/07/17 11:00 Respiratory Rate 18 07/07/18 11:00 Blood Pressure 96/55 07/07/17 11:00 O2 Sat by Pulse Oximetry (%) 98 07/07/17 09:00 Cardiovascular: Yes: Regular Rate and Rhythm Respiratory: Yes: Regular, CTA Bilaterally Gastrointestinal: Yes: Normal Bowel Sounds, Soft Labs: CBC, BMP 07/06/17 06:30 07/06/17 06:30 Assessment/Plan - Problems (1) Wound, open, hip or thigh Assessment/Plan: observation admission cultures on 06/28 shows MRSA and pseudomonas will give iv vanco one dose and will get ID to see patient duration of abx will defer to ID- MRI ordered to asses osteomyelitis Microbiology 06/27/17 16:45 Hip - Left Gram Stain - Final 06/27/17 16:45 Hip - Left Wound Culture - Final Pseudomonas Aeruginosa Strep Agalactiae Group B Mr S Aureus Enterococcus Faecalis pain control with morphine and stool softners picc line order placed as well Code(s): S71.009A - UNSPECIFIED OPEN WOUND, UNSPECIFIED HIP, INITIAL ENCOUNTER; S71.109A - UNSPECIFIED OPEN WOUND, UNSPECIFIED THIGH, INITIAL ENCOUNTER (2) Lupus Assessment/Plan: plaquenil daily 400mg gets acthar sq weekly 20units and methotrexate 15mg s/q weekly Code(s): L93.0 - DISCOID LUPUS ERYTHEMATOSUS (3) Edema Assessment/Plan: lasix and Kdur Code(s): R60.9 - EDEMA, UNSPECIFIED
[2017-07-07] MEDS: SODIUM CHLORIDE 1,000 ML IV SCH (17:40)
[2017-07-07] MEDS: MUPIROCIN CA 2% TOPICAL CREAM 15 GM TUBE TP SCH ×2 (17:40→21:59)
[2017-07-07] MEDS ORDERED: diphenhydrAMINE HCL 25 MG CAPSULE (FP) PO ONE (18:00)
[2017-07-07] MEDS ORDERED: QUEtiapine FUMARATE 25 MG TABLET (FP) ONE (21:36)
--- NOTE | 2017-07-07 21:37 | CONSULT ---
Consult - text type - Consultation Consultation Note: FULL CONSULT DICTATED IMP: PROBABLE CHRONIC LEFT HIP OSTEO PLAN: ABX PER ID, MRI
[2017-07-07] MEDS: TOPIRAMATE 25 MG TABLET (FP) PO SCH (21:55)
[2017-07-07] MEDS: QUEtiapine FUMARATE 50 MG TABLET PO SCH (21:55)
[2017-07-07] MEDS: DOCUSATE SODIUM 100 MG CAPSULE (FP) PO SCH (21:55)
[2017-07-08] MEDS ORDERED: PT OWN MED DRAWER 7, Y5N ONE ×5 (00:14→21:12)
[2017-07-08] MEDS: VANCOMYCIN 1,000 MG in DEXTROSE 5%-WATER - 250 ML IVPB SCH ×2 (00:20→14:28)
[2017-07-08] MEDS: CEFEPIME 2 GM in DEXTROSE 5%-WATER - 100 ML IVPB SCH ×3 (02:37→17:23)
--- NOTE | 2017-07-08 07:41 | CONS ---
DATE OF CONSULTATION: 07/07/2017 Patient is a 46-year-old female complaining of left hip pain and drainage. She is a very poor historian and it is difficult to really get a great history from her. She admits that [facility]. She has been seeing Dr. Ca, plastic surgeon, who has been dealing with this. She also has a history of lupus. At some point over the past few months, the patient developed a wound over the lateral thigh with purulence and drainage. It [facility] been [facility], now presents with worsening condition. Cultures were positive for pseudomonas and MRSA with some drainage. PHYSICAL EXAMINATION: She has a sinus over lateral thigh, which communicates almost definitely down to the trochanter. Minimal pain with range of motion of her hip, knee, ankle, and toes. Neurovascularly intact. No erythema. X-rays, which are reviewed, are negative. CT nash questionably suggestive of a semi-erosion of the greater trochanter by x-ray report, but to my evaluation, I just see air in the lateral thigh from the sinus, but really no changes on the greater trochanter. IMPRESSION: Questionable chronic osteomyelitis versus soft tissue abscess on the lateral thigh. PLAN: MRI, IV antibiotics as per ID, local wound coverage until after the MRI and then we will make a decision on what to do. JOSE TREADWELL M.D. [id number]
[2017-07-08 07:44] LABS: BASO % 0.8 % (0-2.0); EOS % 4.2 % (0-4.5); HEMATOCRIT 30.4 % (32.4-45.2); HEMOGLOBIN 9.2 GM/dL (10.7-15.3); LYMPH % 29.3 % (8-40); MCH 20.9 pg (25.7-33.7); MCHC 30.2 g/dl (32.0-36.0); MEAN CELL VOLUME 69.3 fl (80-96); MEAN PLT VOLUME 9.5 fl (7.5-11.1); MONO % 19.6 % (3.8-10.2); NEUT % 46.1 % (42.8-82.8); PLATELET COUNT 196 K/MM3 (134-434); RBC 4.39 M/mm3 (3.60-5.2); RDW 19.6 % (11.6-15.6)
--- NOTE | 2017-07-08 07:50 | PN ---
Progress Note, Physician - Current Medication List Current Medications: Active Medications Diazepam (Valium -) 5 mg PO BID [facility] Last Admin: 07/07/17 21:55 Dose: 5 mg Docusate Sodium (Colace -) 300 mg PO [facility] Last Admin: 07/07/17 21:55 Dose: 300 mg Hydroxychloroquine Sulfate (Plaquenil -) 400 mg PO DAILY [facility] Last Admin: 07/07/17 10:20 Dose: 400 mg IV Flush (Picc Line Flush) 8 ml IVPUSH PRN PRN PRN Reason: Protocol Vancomycin HCl 1,000 mg/ (Dextrose) 250 mls @ 250 mls/hr IVPB BID@0100,1300 MOI PRN Reason: Protocol Last Admin: 07/08/17 00:20 Dose: 250 mls/hr Cefepime HCl 2 gm/ Dextrose 100 mls @ 200 mls/hr IVPB Q8H-IV [facility] Last Admin: 07/08/17 02:37 Dose: 200 mls/hr Sodium Chloride (Normal Saline -) 1,000 mls @ 100 mls/hr IV ASDIR [facility] Last Admin: 07/07/17 17:40 Dose: Not Given Morphine Sulfate (Msir -) 15 mg PO Q4H PRN PRN Reason: PAIN LEVEL 7 - 10 Last Admin: 07/07/17 17:52 Dose: 15 mg Morphine Sulfate (Ms Contin -) 30 mg PO BID [facility] Last Admin: 07/07/17 21:54 Dose: 30 mg Mupirocin (Bactroban 2% Cream -) 1 applic TP BID [facility] Last Admin: 07/07/17 21:59 Dose: 1 applic Pantoprazole Sodium (Protonix -) 40 mg PO BID [facility] Last Admin: 07/07/17 21:56 Dose: 40 mg Potassium Chloride (K-Dur -) 40 meq PO DAILY@0800 [facility] Last Admin: 07/07/17 07:50 Dose: 40 meq Quetiapine Fumarate (Seroquel -) 50 mg PO [facility] Last Admin: 07/07/17 21:55 Dose: 50 mg Topiramate (Topamax -) 25 mg PO [facility] Last Admin: 07/07/17 21:55 Dose: 25 mg - Objective Vital Signs: Vital Signs Temperature 98.4 F 07/07/17 21:00 Pulse Rate 78 07/07/17 21:00 Respiratory Rate 18 07/07/17 21:00 Blood Pressure 108/59 07/07/17 21:00 O2 Sat by Pulse Oximetry (%) 99 07/07/17 21:00 Cardiovascular: Yes: S1, S2 Respiratory: Yes: Regular, CTA Bilaterally Gastrointestinal: Yes: Normal Bowel Sounds, Soft Assessment/Plan - Problems (1) Wound, open, hip or thigh Assessment/Plan: observation admission cultures on 06/28 shows MRSA and pseudomonas will give iv vanco one dose and will get ID to see patient duration of abx will defer to ID- MRI ordered to asses osteomyelitis Microbiology 06/27/17 16:45 Hip - Left Gram Stain - Final 06/27/17 16:45 Hip - Left Wound Culture - Final Pseudomonas Aeruginosa Strep Agalactiae Group B Mr S Aureus Enterococcus Faecalis pain control with morphine and stool softners picc line order placed as well Code(s): S71.009A - UNSPECIFIED OPEN WOUND, UNSPECIFIED HIP, INITIAL ENCOUNTER; S71.109A - UNSPECIFIED OPEN WOUND, UNSPECIFIED THIGH, INITIAL ENCOUNTER (2) Lupus Assessment/Plan: plaquenil daily 400mg gets acthar sq weekly 20units and methotrexate 15mg s/q weekly Code(s): L93.0 - DISCOID LUPUS ERYTHEMATOSUS (3) Edema Assessment/Plan: lasix and Kdur Code(s): R60.9 - EDEMA, UNSPECIFIED
[2017-07-08 08:02] LABS: ALBUMIN 2.9 g/dl (3.4-5.0); BLOOD UREA NITROGEN 10 mg/dL (7-18); CHLORIDE 107 mmol/L (98-107); GLUCOSE,RANDOM 67 mg/dL (74-106); POTASSIUM 4.4 mmol/L (3.5-5.1); SODIUM 140 mmol/L (136-145)
[2017-07-08 08:11] LABS: ALK PHOS 53 U/L (45-117); ANION GAP 7 (8-16); BILIRUBIN,TOTAL 0.2 mg/dL (0.2-1.0); CALCIUM 8.7 mg/dL (8.5-10.1); CO2 26 mmol/L (21-32); SGOT/AST 16 U/L (15-37); SGPT/ALT 9 U/L (12-78); TOT PROT 6.4 g/dl (6.4-8.2)
[2017-07-08] MEDS: POTASSIUM CHLORIDE TABS 20 MEQ TABLET.ER (FP) PO SCH (09:27)
[2017-07-08] MEDS: HYDROXYCHLOROQUINE SO4 200 MG TABLET (FP) PO SCH (09:27)
[2017-07-08] MEDS: morphine SO4 SUSTAINED ACTING 30 MG TABLET.SA PO SCH ×2 (09:27→22:22)
[2017-07-08] MEDS: PANTOPRAZOLE 40 MG TABLET (FP) PO SCH ×2 (09:28→22:22)
[2017-07-08] MEDS: diazePAM 5 MG TABLET PO SCH ×2 (09:28→22:22)
[2017-07-08 10:23] LABS: ERYTHROCYTE SEDIMENTATION RATE 17 mm/hr (0-20)
[2017-07-08] MEDS: morphine SULFATE IMMEDIATE RELEASE 30 MG TAB PO PRN ×3 (11:15→20:25)
[2017-07-08] MEDS: MUPIROCIN CA 2% TOPICAL CREAM 15 GM TUBE TP SCH ×2 (11:18→22:26)
[2017-07-08] MEDS: SODIUM CHLORIDE 1,000 ML IV SCH (14:28)
[2017-07-08] MEDS ORDERED: QUEtiapine FUMARATE 25 MG TABLET (FP) ONE (22:18)
[2017-07-08] MEDS: TOPIRAMATE 25 MG TABLET (FP) PO SCH (22:21)
[2017-07-08] MEDS: diphenhydrAMINE HCL 25 MG CAPSULE (FP) PO PRN (22:21)
[2017-07-08] MEDS: DOCUSATE SODIUM 100 MG CAPSULE (FP) PO SCH (22:23)
[2017-07-08] MEDS: QUEtiapine FUMARATE 50 MG TABLET PO SCH (22:23)
[2017-07-09] MEDS: VANCOMYCIN 1,000 MG in DEXTROSE 5%-WATER - 250 ML IVPB SCH ×2 (00:10→12:59)
[2017-07-09] MEDS: CEFEPIME 2 GM in DEXTROSE 5%-WATER - 100 ML IVPB SCH ×3 (02:45→17:32)
[2017-07-09] MEDS: morphine SULFATE IMMEDIATE RELEASE 30 MG TAB PO PRN ×3 (06:28→17:45)
[2017-07-09] MEDS: POTASSIUM CHLORIDE TABS 20 MEQ TABLET.ER (FP) PO SCH (08:27)
[2017-07-09] MEDS ORDERED: PT OWN MED DRAWER 7, Y5N ONE ×3 (09:43→17:25)
[2017-07-09] MEDS: morphine SO4 SUSTAINED ACTING 30 MG TABLET.SA PO SCH ×2 (09:48→22:49)
[2017-07-09] MEDS: PANTOPRAZOLE 40 MG TABLET (FP) PO SCH ×2 (09:49→22:50)
[2017-07-09] MEDS: HYDROXYCHLOROQUINE SO4 200 MG TABLET (FP) PO SCH (09:49)
[2017-07-09] MEDS: diazePAM 5 MG TABLET PO SCH ×2 (09:50→22:50)
--- NOTE | 2017-07-09 10:03 | PN ---
Progress Note (short form) - Note Progress Note: Ortho Pt seen and examined Selected Entries 07/09/17 08:00 Temperature 98.5 F Pulse Rate 75 Respiratory 18 Rate Blood Pressure 106/61 Laboratory Tests 07/08/17 06:00 WBC 4.0 Hgb 9.2 L D Hct 30.4 L Plt Count 196 dressing c/d/i,+ttp, decr rom, calf soft, nt nvi MRI + osteo greater troch, no fluid collection avn b/l hips a/p results d/w pt in detail as per Dr. Youngblood, IV abx If continues to drain after IV abx will need debridement will follow d/w Dr. Youngblood
--- NOTE | 2017-07-09 10:07 | PN ---
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 Vancomycin Cefepime - Current Medication List Current Medications: Active Medications Diazepam (Valium -) 5 mg PO BID [facility] Last Admin: 07/09/17 09:50 Dose: 5 mg Diphenhydramine HCl (Benadryl -) 25 mg PO Q6H PRN PRN Reason: FOR ITCHING Last Admin: 07/08/17 22:21 Dose: 25 mg Docusate Sodium (Colace -) 300 mg PO [facility] Last Admin: 07/08/17 22:23 Dose: Not Given Hydroxychloroquine Sulfate (Plaquenil -) 400 mg PO DAILY [facility] Last Admin: 07/09/17 09:49 Dose: 400 mg IV Flush (Picc Line Flush) 8 ml IVPUSH PRN PRN PRN Reason: Protocol Vancomycin HCl 1,000 mg/ (Dextrose) 250 mls @ 250 mls/hr IVPB BID@0100,1300 MOI PRN Reason: Protocol Last Admin: 07/09/17 00:10 Dose: 250 mls/hr Cefepime HCl 2 gm/ Dextrose 100 mls @ 200 mls/hr IVPB Q8H-IV [facility] Last Admin: 07/09/17 09:50 Dose: 200 mls/hr Sodium Chloride (Normal Saline -) 1,000 mls @ 100 mls/hr IV ASDIR [facility] Last Admin: 07/08/17 14:28 Dose: Not Given Morphine Sulfate (Msir -) 15 mg PO Q4H PRN PRN Reason: PAIN LEVEL 7 - 10 Last Admin: 07/09/17 06:28 Dose: 15 mg Morphine Sulfate (Ms Contin -) 30 mg PO BID [facility] Last Admin: 07/09/17 09:48 Dose: 30 mg Mupirocin (Bactroban 2% Cream -) 1 applic TP BID [facility] Last Admin: 07/08/17 22:26 Dose: 1 applic Pantoprazole Sodium (Protonix -) 40 mg PO BID [facility] Last Admin: 07/09/17 09:49 Dose: 40 mg Potassium Chloride (K-Dur -) 40 meq PO DAILY@0800 [facility] Last Admin: 07/09/17 08:27 Dose: 40 meq Quetiapine Fumarate (Seroquel -) 50 mg PO [facility] Last Admin: 07/08/17 22:23 Dose: 50 mg Topiramate (Topamax -) 25 mg PO HS [facility] Last Admin: 07/08/17 22:21 Dose: 25 mg - Objective Vital Signs: Vital Signs Temperature 98.5 F 07/09/17 08:00 Pulse Rate 75 07/09/17 08:00 Respiratory Rate 18 07/09/17 08:00 Blood Pressure 106/61 07/09/17 08:00 O2 Sat by Pulse Oximetry (%) 99 07/08/17 21:00 Constitutional: Yes: Well Nourished, No Distress Eyes: Yes: WNL, Conjunctiva Clear HENT: Yes: WNL, Atraumatic Neck: Yes: WNL, Supple Cardiovascular: Yes: Regular Rate and Rhythm, S1, S2 Respiratory: Yes: WNL, Regular, CTA Bilaterally Gastrointestinal: Yes: WNL, Normal Bowel Sounds, Soft Labs: CBC, BMP 07/08/17 06:00 07/08/17 06:00 Problem List - Problems (1) Chronic osteomyelitis Code(s): M86.60 - OTHER CHRONIC OSTEOMYELITIS, UNSPECIFIED SITE (2) Wound, open, hip or thigh Code(s): S71.009A - UNSPECIFIED OPEN WOUND, UNSPECIFIED HIP, INITIAL ENCOUNTER; S71.109A - UNSPECIFIED OPEN WOUND, UNSPECIFIED THIGH, INITIAL ENCOUNTER (3) Lupus (systemic lupus erythematosus) Code(s): M32.9 - SYSTEMIC LUPUS ERYTHEMATOSUS, UNSPECIFIED Assessment/Plan Laboratory Tests 07/08/17 07/08/17 06:00 06:00 WBC 4.0 Hgb 9.2 L D Plt Count 196 ESR 17 BUN 10 Creatinine 1.0 Creat Clearance w eGFR 59.96 Assessment 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
[2017-07-09] MEDS: MUPIROCIN CA 2% TOPICAL CREAM 15 GM TUBE TP SCH ×2 (10:13→22:53)
--- NOTE | 2017-07-09 12:35 | PN ---
Progress Note, Physician Chief Complaint: left hip osteomyelitis History of Present Illness: NAD, in bed - Current Medication List Current Medications: Active Medications Diazepam (Valium -) 5 mg PO BID [facility] Last Admin: 07/09/17 09:50 Dose: 5 mg Diphenhydramine HCl (Benadryl -) 25 mg PO Q6H PRN PRN Reason: FOR ITCHING Last Admin: 07/08/17 22:21 Dose: 25 mg Docusate Sodium (Colace -) 300 mg PO [facility] Last Admin: 07/08/17 22:23 Dose: Not Given Hydroxychloroquine Sulfate (Plaquenil -) 400 mg PO DAILY [facility] Last Admin: 07/09/17 09:49 Dose: 400 mg IV Flush (Picc Line Flush) 8 ml IVPUSH PRN PRN PRN Reason: Protocol Vancomycin HCl 1,000 mg/ (Dextrose) 250 mls @ 250 mls/hr IVPB BID@0100,1300 MOI PRN Reason: Protocol Last Admin: 07/09/17 00:10 Dose: 250 mls/hr Cefepime HCl 2 gm/ Dextrose 100 mls @ 200 mls/hr IVPB Q8H-IV [facility] Last Admin: 07/09/17 09:50 Dose: 200 mls/hr Sodium Chloride (Normal Saline -) 1,000 mls @ 100 mls/hr IV ASDIR [facility] Last Admin: 07/08/17 14:28 Dose: Not Given Morphine Sulfate (Msir -) 15 mg PO Q4H PRN PRN Reason: PAIN LEVEL 7 - 10 Last Admin: 07/09/17 06:28 Dose: 15 mg Morphine Sulfate (Ms Contin -) 30 mg PO BID [facility] Last Admin: 07/09/17 09:48 Dose: 30 mg Mupirocin (Bactroban 2% Cream -) 1 applic TP BID [facility] Last Admin: 07/09/17 10:13 Dose: 1 applic Pantoprazole Sodium (Protonix -) 40 mg PO BID [facility] Last Admin: 07/09/17 09:49 Dose: 40 mg Potassium Chloride (K-Dur -) 40 meq PO DAILY@0800 [facility] Last Admin: 07/09/17 08:27 Dose: 40 meq Quetiapine Fumarate (Seroquel -) 50 mg PO [facility] Last Admin: 07/08/17 22:23 Dose: 50 mg Topiramate (Topamax -) 25 mg PO HS [facility] Last Admin: 07/08/17 22:21 Dose: 25 mg - Objective Vital Signs: Vital Signs Temperature 98.1 F 07/09/17 08:30 Pulse Rate 70 07/09/17 08:30 Respiratory Rate 18 07/09/17 08:30 Blood Pressure 98/60 07/09/17 08:30 O2 Sat by Pulse Oximetry (%) 99 07/08/17 21:00 Constitutional: Yes: Well Nourished, No Distress, Calm Cardiovascular: Yes: Regular Rate and Rhythm Respiratory: Yes: Regular Gastrointestinal: Yes: Normal Bowel Sounds Edema: No Peripheral Pulses WNL: Yes Labs: CBC, BMP 07/08/17 06:00 07/08/17 06:00 Problem List - Problems (1) Chronic osteomyelitis Assessment/Plan: Left hip, states it had been draining for a while MRI left hip shows: Penetrating ulceration extending from the cutaneous soft tissues to the level of the left greater trochanter with diffuse surrounding inflammatory changes. Bone marrow edema involving the left greater trochanter is suggestive of focal osteomyelitis. No gross drainable collection noted. Avascular necrosis of the femoral heads noted bilaterally measuring approximately 7 mm. No subchondral collapse. Increased signal within the left femoral shaft could be related to increased red marrow signal. Fibroid uterus. -May need surgical intervention- discussed with patient, further discussion with Orthopedic Dr Youngblood -IV abx via PICC, -wants to go home Code(s): M86.60 - OTHER CHRONIC OSTEOMYELITIS, UNSPECIFIED SITE (2) Lupus (systemic lupus erythematosus) Assessment/Plan: -Sees Dr Kong Laird at [facility] -has been on plaquenil for a while, methotrexate was discontinued due to intolerance. Code(s): M32.9 - SYSTEMIC LUPUS ERYTHEMATOSUS, UNSPECIFIED Assessment/Plan see problem list wants to go home, is willing to come daily to the hospital if needed for abx. Doesn't want to go back to [facility]
[2017-07-09] MEDS: SODIUM CHLORIDE 1,000 ML IV SCH (17:35)
--- NOTE | 2017-07-09 17:49 | PN ---
Progress Note (short form) - Note Progress Note: FULL NOTE DICTATED IMP: LEFT GREATER TROCHANTERIC OSTEO WITH CHRONIC SINUS PLAN: ---> OR TOMORROW FOR I&D AND VAC APPLICATION. PATIENT WANTS TO THINK ABOUT IT AND LET ME KNOW HER CHOICE TOMORROW
--- NOTE | 2017-07-09 18:33 | PN ---
ORTHOPEDIC SURGERY PROGRESS NOTE DATE OF VISIT: 07/09/2017 Since I last saw the patient 2 days ago, the patient has received her MRI. The MRI clearly shows communication of the sinus down to the level of the greater trochanter on the left with evidence of osteomyelitis of the left hip. Also, shows evidence for early avascular necrosis of both her hips with no evidence of . I had a long discussion with Dr. Noel Clancy, the infectious disease doctor, then with the patient herself regarding treatment options for her. I recommend at this time that the sinus be opened down to the level of the greater trochanter, any debris to be removed and curetted and debrided, the wound to be irrigated. The greater trochanter needs to be curetted and stimulated to have bleeding bone and then for the wound to be left open and a VAC application to be applied and let the wound heal from the inside out. I presented this option to the patient. The patient is not too happy with that option, asked many, many questions. After a long discussion, she wanted time to think about how she would like to progress. Her surgery is booked for tomorrow afternoon. She will think about it over the evening, speak to her doctors and her family, and tomorrow, we will have further discussions. Patient is thinking of just trying to proceed with IV antibiotics and see if that will help to close. I do not believe that that will be successful, but it is the patient's prerogative to make up her own decision. I will speak to her again at length tomorrow and find out what her decision is and proceed from there. JOSE TREADWELL M.D. [id number]
[2017-07-09] MEDS ORDERED: QUEtiapine FUMARATE 25 MG TABLET (FP) ONE (22:46)
[2017-07-09] MEDS: TOPIRAMATE 25 MG TABLET (FP) PO SCH (22:50)
[2017-07-09] MEDS: DOCUSATE SODIUM 100 MG CAPSULE (FP) PO SCH ×2 (22:50→22:55)
[2017-07-09] MEDS: QUEtiapine FUMARATE 50 MG TABLET PO SCH (22:50)
[2017-07-10] MEDS: VANCOMYCIN 1,000 MG in DEXTROSE 5%-WATER - 250 ML IVPB SCH ×2 (00:10→12:06)
[2017-07-10] MEDS ORDERED: PT OWN MED DRAWER 7, Y5N ONE ×4 (01:08→17:06)
[2017-07-10] MEDS: CEFEPIME 2 GM in DEXTROSE 5%-WATER - 100 ML IVPB SCH ×3 (01:14→17:12)
[2017-07-10] MEDS: diphenhydrAMINE HCL 25 MG CAPSULE (FP) PO PRN ×2 (08:46→17:49)
[2017-07-10] MEDS: MUPIROCIN CA 2% TOPICAL CREAM 15 GM TUBE TP SCH ×2 (10:50→22:07)
[2017-07-10] MEDS: diazePAM 5 MG TABLET PO SCH ×2 (10:50→22:03)
[2017-07-10] MEDS: POTASSIUM CHLORIDE TABS 20 MEQ TABLET.ER (FP) PO SCH (10:50)
[2017-07-10] MEDS: HYDROXYCHLOROQUINE SO4 200 MG TABLET (FP) PO SCH (10:50)
[2017-07-10] MEDS: morphine SO4 SUSTAINED ACTING 30 MG TABLET.SA PO SCH ×2 (10:50→22:02)
[2017-07-10] MEDS: PANTOPRAZOLE 40 MG TABLET (FP) PO SCH ×2 (10:50→22:02)
--- NOTE | 2017-07-10 11:53 | PN ---
Progress Note, Physician Chief Complaint: left hip osteomyelitis History of Present Illness: NAD, in bed [facility] refusing rehab, wants to go home, says she will come to the hospital for daily antibiotics if she has to. She states her brother will change the dressings if needed has PICC line - Current Medication List Current Medications: Active Medications Diazepam (Valium -) 5 mg PO BID [facility] Last Admin: 07/10/17 10:50 Dose: 5 mg Diphenhydramine HCl (Benadryl -) 25 mg PO Q6H PRN PRN Reason: FOR ITCHING Last Admin: 07/10/17 08:46 Dose: 25 mg Docusate Sodium (Colace -) 300 mg PO HS [facility] Last Admin: 07/09/17 22:55 Dose: Not Given Hydroxychloroquine Sulfate (Plaquenil -) 400 mg PO DAILY [facility] Last Admin: 07/10/17 10:50 Dose: 400 mg IV Flush (Picc Line Flush) 8 ml IVPUSH PRN PRN PRN Reason: Protocol Vancomycin HCl 1,000 mg/ (Dextrose) 250 mls @ 250 mls/hr IVPB BID@0100,1300 [facility] PRN Reason: Protocol Last Admin: 07/10/17 00:10 Dose: 250 mls/hr Cefepime HCl 2 gm/ Dextrose 100 mls @ 200 mls/hr IVPB Q8H-IV [facility] Last Admin: 07/10/17 10:50 Dose: 200 mls/hr Sodium Chloride (Normal Saline -) 1,000 mls @ 100 mls/hr IV ASDIR [facility] Last Admin: 07/09/17 17:35 Dose: Not Given Morphine Sulfate (Msir -) 15 mg PO Q4H PRN PRN Reason: PAIN LEVEL 7 - 10 Last Admin: 07/09/17 17:45 Dose: 15 mg Morphine Sulfate (Ms Contin -) 30 mg PO BID [facility] Last Admin: 07/10/17 10:50 Dose: 30 mg Mupirocin (Bactroban 2% Cream -) 1 applic TP BID [facility] Last Admin: 07/10/17 10:50 Dose: 1 applic Pantoprazole Sodium (Protonix -) 40 mg PO BID [facility] Last Admin: 07/10/17 10:50 Dose: 40 mg Potassium Chloride (K-Dur -) 40 meq PO DAILY@0800 [facility] Last Admin: 07/10/17 10:50 Dose: 40 meq Quetiapine Fumarate (Seroquel -) 50 mg PO HS [facility] Last Admin: 07/09/17 22:50 Dose: 50 mg Topiramate (Topamax -) 25 mg PO [facility] Last Admin: 07/09/17 22:50 Dose: 25 mg - Objective Vital Signs: Vital Signs Temperature 97.9 F 07/10/17 10:00 Pulse Rate 74 07/10/17 10:00 Respiratory Rate 20 07/10/17 10:00 Blood Pressure 98/53 07/10/17 10:00 O2 Sat by Pulse Oximetry (%) 99 07/09/17 21:00 Constitutional: Yes: Well Nourished, No Distress, Calm Cardiovascular: Yes: Regular Rate and Rhythm Respiratory: Yes: Regular Gastrointestinal: Yes: Normal Bowel Sounds, Soft Edema: No Peripheral Pulses WNL: Yes Wound/Incision: Yes: Dressing Dry and Intact Neurological: Yes: Alert, Oriented Psychiatric: Yes: Alert, Oriented Labs: CBC, BMP 07/08/17 06:00 07/08/17 06:00 Problem List - Problems (1) Chronic osteomyelitis Assessment/Plan: Left hip, states it had been draining for a while MRI left hip shows: Penetrating ulceration extending from the cutaneous soft tissues to the level of the left greater trochanter with diffuse surrounding inflammatory changes. Bone marrow edema involving the left greater trochanter is suggestive of focal osteomyelitis. No gross drainable collection noted. Avascular necrosis of the femoral heads noted bilaterally measuring approximately 7 mm. No subchondral collapse. Increased signal within the left femoral shaft could be related to increased red marrow signal. Fibroid uterus. -May need surgical intervention- discussed with patient, further discussion with Orthopedic Dr Youngblood -IV abx via PICC, -wants to go home -ID to decide on abx to be discharged on. Will need insurance approval. Code(s): M86.60 - OTHER CHRONIC OSTEOMYELITIS, UNSPECIFIED SITE (2) Lupus (systemic lupus erythematosus) Assessment/Plan: -Sees Dr Kong Laird at [facility] -has been on plaquenil for a while, methotrexate was discontinued due to intolerance. Code(s): M32.9 - SYSTEMIC LUPUS ERYTHEMATOSUS, UNSPECIFIED Assessment/Plan see problem list wants to go home, is willing to come daily to the hospital if needed for abx. Doesn't want to go back to any rehab. refuses any surgical intervention.
--- NOTE | 2017-07-10 12:08 | PN ---
Progress Note (short form) - Note Progress Note: THE PATIENT HAS DECIDED THAT SHE ABSOLUTELY REFUSES ANY OPERATIVE INTERVENTION AT THIS TIME. sHE WANTS TO GO HOME ON IV ABX AND SEE IF THAT WORKS. i HAVE ADVISED HER AGAINST THIS BUT SHE IS ADAMANT WITH HER DECISION. I WILL RESPECT HER DECISION. ID TO DECIDE ON APPROPRIATE ABX
--- NOTE | 2017-07-10 13:49 | PN ---
Progress Note (short form) - Note Progress Note: d/w patient she wants time to think about surgery have suggested she do this overnight and speak with dr rider and dr conway in am continue vancomycin and cefepime for now
[2017-07-10 13:54] LABS: BASO % 0.9 % (0-2.0); EOS % 5.2 % (0-4.5); HEMATOCRIT 30.5 % (32.4-45.2); HEMOGLOBIN 9.3 GM/dL (10.7-15.3); LYMPH % 16.6 % (8-40); MCHC 30.5 g/dl (32.0-36.0); MONO % 15.8 % (3.8-10.2); NEUT % 61.5 % (42.8-82.8); PLATELET COUNT 201 K/MM3 (134-434); RBC 4.42 M/mm3 (3.60-5.2); RDW 19.8 % (11.6-15.6); WHITE BLOOD COUNT 4.7 K/mm3 (4.0-10.0)
[2017-07-10 14:21] LABS: ALBUMIN 3.2 g/dl (3.4-5.0); ANION GAP 7 (8-16); BILIRUBIN,TOTAL 0.3 mg/dL (0.2-1.0); BLOOD UREA NITROGEN 7 mg/dL (7-18); CALCIUM 8.9 mg/dL (8.5-10.1); CHLORIDE 108 mmol/L (98-107); CO2 24 mmol/L (21-32); CREATININE 0.9 mg/dL (0.55-1.02); GLUCOSE,RANDOM 101 mg/dL (74-106); POTASSIUM 3.9 mmol/L (3.5-5.1); SGOT/AST 20 U/L (15-37); SGPT/ALT 11 U/L (12-78); SODIUM 139 mmol/L (136-145); TOT PROT 6.7 g/dl (6.4-8.2)
[2017-07-10 14:22] LABS: ALK PHOS 56 U/L (45-117)
[2017-07-10] MEDS: SODIUM CHLORIDE 1,000 ML IV SCH (14:47)
[2017-07-10 15:24] LABS: ERYTHROCYTE SEDIMENTATION RATE 31 mm/hr (0-20)
[2017-07-10] MEDS: morphine SULFATE IMMEDIATE RELEASE 30 MG TAB PO PRN (20:07)
[2017-07-10] MEDS ORDERED: QUEtiapine FUMARATE 25 MG TABLET (FP) ONE (21:59)
[2017-07-10] MEDS: TOPIRAMATE 25 MG TABLET (FP) PO SCH (22:02)
[2017-07-10] MEDS: QUEtiapine FUMARATE 50 MG TABLET PO SCH (22:04)
[2017-07-10] MEDS: DOCUSATE SODIUM 100 MG CAPSULE (FP) PO SCH (22:04)
[2017-07-11] MEDS: VANCOMYCIN 1,000 MG in DEXTROSE 5%-WATER - 250 ML IVPB SCH ×2 (00:45→14:15)
[2017-07-11] MEDS: diphenhydrAMINE HCL 25 MG CAPSULE (FP) PO PRN ×3 (01:36→19:51)
[2017-07-11] MEDS: CEFEPIME 2 GM in DEXTROSE 5%-WATER - 100 ML IVPB SCH ×3 (01:37→18:07)
[2017-07-11] MEDS ORDERED: INSULIN (NOVOLOG) ASPART 100 UNITS/ML 10ML VIAL ONE (07:05)
[2017-07-11] MEDS: morphine SULFATE IMMEDIATE RELEASE 30 MG TAB PO PRN (08:16)
[2017-07-11] MEDS: POTASSIUM CHLORIDE TABS 20 MEQ TABLET.ER (FP) PO SCH (08:17)
--- NOTE | 2017-07-11 08:57 | PN ---
Progress Note, Physician Chief Complaint: ID Once again a lengthy discussion with patient regarding need for surgery with antibiotics - Current Medication List Current Medications: Active Medications Diazepam (Valium -) 5 mg PO BID [facility] Last Admin: 07/10/17 22:03 Dose: 5 mg Diphenhydramine HCl (Benadryl -) 25 mg PO Q6H PRN PRN Reason: FOR ITCHING Last Admin: 07/11/17 01:36 Dose: 25 mg Docusate Sodium (Colace -) 300 mg PO [facility] Last Admin: 07/10/17 22:04 Dose: Not Given Hydroxychloroquine Sulfate (Plaquenil -) 400 mg PO DAILY [facility] Last Admin: 07/10/17 10:50 Dose: 400 mg IV Flush (Picc Line Flush) 8 ml IVPUSH PRN PRN PRN Reason: Protocol Vancomycin HCl 1,000 mg/ (Dextrose) 250 mls @ 250 mls/hr IVPB BID@0100,1300 [facility] PRN Reason: Protocol Last Admin: 07/11/17 00:45 Dose: 250 mls/hr Cefepime HCl 2 gm/ Dextrose 100 mls @ 200 mls/hr IVPB Q8H-IV [facility] Last Admin: 07/11/17 01:37 Dose: 200 mls/hr Sodium Chloride (Normal Saline -) 1,000 mls @ 100 mls/hr IV ASDIR [facility] Last Admin: 07/10/17 14:47 Dose: 100 mls/hr Morphine Sulfate (Msir -) 15 mg PO Q4H PRN PRN Reason: PAIN LEVEL 7 - 10 Last Admin: 07/11/17 08:16 Dose: 15 mg Morphine Sulfate (Ms Contin -) 30 mg PO BID [facility] Last Admin: 07/10/17 22:02 Dose: 30 mg Mupirocin (Bactroban 2% Cream -) 1 applic TP BID [facility] Last Admin: 07/10/17 22:07 Dose: 1 applic Pantoprazole Sodium (Protonix -) 40 mg PO BID [facility] Last Admin: 07/10/17 22:02 Dose: 40 mg Potassium Chloride (K-Dur -) 40 meq PO DAILY@0800 [facility] Last Admin: 07/11/17 08:17 Dose: 40 meq Quetiapine Fumarate (Seroquel -) 50 mg PO [facility] Last Admin: 01/30/18 22:04 Dose: 50 mg Topiramate (Topamax -) 25 mg PO HS [facility] Last Admin: 07/10/17 22:02 Dose: 25 mg - Objective Vital Signs: Vital Signs Temperature 98.4 F 07/11/17 06:31 Pulse Rate 78 07/11/17 06:31 Respiratory Rate 20 07/11/17 06:31 Blood Pressure 100/56 07/11/17 06:31 O2 Sat by Pulse Oximetry (%) 97 07/10/17 21:00 Constitutional: Yes: Well Nourished, No Distress Neck: Yes: WNL, Supple Cardiovascular: Yes: Regular Rate and Rhythm, S1, S2 Respiratory: Yes: WNL, Regular, CTA Bilaterally Gastrointestinal: Yes: WNL, Normal Bowel Sounds, Soft. No: Tenderness Extremities: Yes: Other (SInus opening left thigh/hip lateral minimjal drainage noted today) Labs: CBC, BMP 07/10/17 13:25 07/10/17 13:25 Problem List - Problems (1) Chronic osteomyelitis Code(s): M86.60 - OTHER CHRONIC OSTEOMYELITIS, UNSPECIFIED SITE (2) Wound, open, hip or thigh Code(s): S71.009A - UNSPECIFIED OPEN WOUND, UNSPECIFIED HIP, INITIAL ENCOUNTER; S71.109A - UNSPECIFIED OPEN WOUND, UNSPECIFIED THIGH, INITIAL ENCOUNTER (3) Lupus (systemic lupus erythematosus) Code(s): M32.9 - SYSTEMIC LUPUS ERYTHEMATOSUS, UNSPECIFIED Assessment/Plan Microbiology 06/27/17 16:45 Hip - Left Gram Stain - Final 06/27/17 16:45 Hip - Left Wound Culture - Final Pseudomonas Aeruginosa Strep Agalactiae Group B Mr S Aureus Enterococcus Faecalis Laboratory Tests 07/09/17 07/10/17 07/10/17 12:40 13:25 13:25 WBC 4.7 Hgb 9.3 L Hct 30.5 L Plt Count 201 ESR 31 H BUN 7 Creatinine 0.9 Vancomycin Pre-Dose 15.508 H* Assessment Osteomyelitis of greater trochanter Polymicroibial culture wound opening Plan Continue antibiotics I told patient her prospects for cure of her osteo are limited without surgery for debridement and that she could end up getting 6 or 8 weeks of IV antibiotics and still needing surgery and retreatment She understands and says she wants to talk to her nursing advocate before deciding what to do Julieth VILLANUEVA
[2017-07-11] MEDS ORDERED: PT OWN MED DRAWER 7, Y5N ONE ×2 (09:53→17:43)
[2017-07-11] MEDS: HYDROXYCHLOROQUINE SO4 200 MG TABLET (FP) PO SCH (09:58)
[2017-07-11] MEDS: diazePAM 5 MG TABLET PO SCH ×2 (09:58→23:20)
[2017-07-11] MEDS: morphine SO4 SUSTAINED ACTING 30 MG TABLET.SA PO SCH ×2 (09:58→23:19)
[2017-07-11] MEDS: PANTOPRAZOLE 40 MG TABLET (FP) PO SCH ×2 (09:58→23:19)
[2017-07-11] MEDS: MUPIROCIN CA 2% TOPICAL CREAM 15 GM TUBE TP SCH ×2 (09:59→23:20)
--- NOTE | 2017-07-11 12:07 | PN ---
Progress Note, Physician Chief Complaint: left hip osteomyelitis History of Present Illness: NAD, in bed [facility] refusing rehab, wants to go home, says she will come to the hospital for daily antibiotics if she has to. She states her brother will change the dressings if needed has PICC line seen by ID- who recommends surgical intervention patient is still thinking about it, She was seen by Patient advocate, was informed 100% coverage of abx - Current Medication List Current Medications: Active Medications Diazepam (Valium -) 5 mg PO BID [facility] Last Admin: 07/11/17 09:58 Dose: 5 mg Diphenhydramine HCl (Benadryl -) 25 mg PO Q6H PRN PRN Reason: FOR ITCHING Last Admin: 07/11/17 01:36 Dose: 25 mg Docusate Sodium (Colace -) 300 mg PO HS [facility] Last Admin: 07/10/17 22:04 Dose: Not Given Hydroxychloroquine Sulfate (Plaquenil -) 400 mg PO DAILY [facility] Last Admin: 07/11/17 09:58 Dose: 400 mg IV Flush (Picc Line Flush) 8 ml IVPUSH PRN PRN PRN Reason: Protocol Vancomycin HCl 1,000 mg/ (Dextrose) 250 mls @ 250 mls/hr IVPB BID@0100,1300 [facility] PRN Reason: Protocol Last Admin: 07/11/17 00:45 Dose: 250 mls/hr Cefepime HCl 2 gm/ Dextrose 100 mls @ 200 mls/hr IVPB Q8H-IV [facility] Last Admin: 07/11/17 09:59 Dose: 200 mls/hr Sodium Chloride (Normal Saline -) 1,000 mls @ 100 mls/hr IV ASDIR [facility] Last Admin: 07/10/17 14:47 Dose: 100 mls/hr Morphine Sulfate (Msir -) 15 mg PO Q4H PRN PRN Reason: PAIN LEVEL 7 - 10 Last Admin: 07/11/17 08:16 Dose: 15 mg Morphine Sulfate (Ms Contin -) 30 mg PO BID [facility] Last Admin: 07/11/17 09:58 Dose: 30 mg Mupirocin (Bactroban 2% Cream -) 1 applic TP BID [facility] Last Admin: 07/11/17 09:59 Dose: 1 applic Pantoprazole Sodium (Protonix -) 40 mg PO BID [facility] Last Admin: 07/11/17 09:58 Dose: 40 mg Potassium Chloride (K-Dur -) 40 meq PO DAILY@0800 [facility] Last Admin: 07/11/17 08:17 Dose: 40 meq Quetiapine Fumarate (Seroquel -) 50 mg PO [facility] Last Admin: 07/10/17 22:04 Dose: 50 mg Topiramate (Topamax -) 25 mg PO [facility] Last Admin: 07/10/17 22:02 Dose: 25 mg - Objective Vital Signs: Vital Signs Temperature 98.7 F 07/11/17 10:00 Pulse Rate 83 07/11/17 10:00 Respiratory Rate 18 07/11/17 10:00 Blood Pressure 103/59 07/11/17 10:00 O2 Sat by Pulse Oximetry (%) 97 07/10/17 21:00 Constitutional: Yes: Well Nourished, No Distress, Calm Cardiovascular: Yes: Regular Rate and Rhythm Respiratory: Yes: Regular Gastrointestinal: Yes: Normal Bowel Sounds, Soft Musculoskeletal: Yes: WNL Extremities: Yes: WNL Edema: No Peripheral Pulses WNL: Yes Wound/Incision: Yes: Well Approximated, Dressing Removed, Draining (minimally) Neurological: Yes: Alert, Oriented Psychiatric: Yes: Alert, Oriented Labs: CBC, BMP 07/10/17 13:25 07/10/17 13:25 Problem List - Problems (1) Chronic osteomyelitis Assessment/Plan: Left hip, states it had been draining for a while MRI left hip shows: Penetrating ulceration extending from the cutaneous soft tissues to the level of the left greater trochanter with diffuse surrounding inflammatory changes. Bone marrow edema involving the left greater trochanter is suggestive of focal osteomyelitis. No gross drainable collection noted. Avascular necrosis of the femoral heads noted bilaterally measuring approximately 7 mm. No subchondral collapse. Increased signal within the left femoral shaft could be related to increased red marrow signal. Fibroid uterus. -May need surgical intervention- discussed with patient, further discussion with Orthopedic Dr Youngblood -IV abx via PICC, -wants to go home -ID to decide on abx to be discharged on. -Vascular consult for wound care Code(s): M86.60 - OTHER CHRONIC OSTEOMYELITIS, UNSPECIFIED SITE (2) Lupus (systemic lupus erythematosus) Assessment/Plan: -Sees Dr Kong Laird at [facility] -has been on plaquenil for a while, methotrexate was discontinued due to intolerance. Code(s): M32.9 - SYSTEMIC LUPUS ERYTHEMATOSUS, UNSPECIFIED Assessment/Plan see problem list
[2017-07-11] MEDS: SODIUM CHLORIDE 1,000 ML IV SCH (14:14)
--- NOTE | 2017-07-11 15:53 | PN ---
Progress Note (short form) - Note Progress Note: Vascular Surgery Pt seen and examined. Spoke to pt at length about what is happening. Pt has left hip osteo and needs debridement by ortho. I explained to the pt that she is not going to get better unless the area is cleaned and debrided. Then she can get antibiotics for 6-8 weeks. Probably will need vac dressing. Pt to speak to ortho again, and is reconsidering for surgery Moises machado DO
[2017-07-11] MEDS ORDERED: QUEtiapine FUMARATE 25 MG TABLET (FP) ONE (22:02)
[2017-07-11] MEDS: DOCUSATE SODIUM 100 MG CAPSULE (FP) PO SCH (23:18)
[2017-07-11] MEDS: QUEtiapine FUMARATE 50 MG TABLET PO SCH (23:19)
[2017-07-11] MEDS: TOPIRAMATE 25 MG TABLET (FP) PO SCH (23:20)
[2017-07-12] MEDS: VANCOMYCIN 1,000 MG in DEXTROSE 5%-WATER - 250 ML IVPB SCH ×2 (00:27→12:55)
[2017-07-12] MEDS: CEFEPIME 2 GM in DEXTROSE 5%-WATER - 100 ML IVPB SCH ×3 (02:07→17:50)
[2017-07-12] MEDS: morphine SULFATE IMMEDIATE RELEASE 30 MG TAB PO PRN (04:07)
[2017-07-12] MEDS: diphenhydrAMINE HCL 25 MG CAPSULE (FP) PO PRN ×2 (06:09→15:09)
--- NOTE | 2017-07-12 07:04 | PN ---
Progress Note, Physician Chief Complaint: ID Patient has created an impossible situation for herself in which she refused to go to a nursing facility , decline surgery which is necessary for cure and insists on antibiotics at home which I do not believe is covered by her insurance. She cannot get q8h and q12H IV antibiotics as an outpt coming to the hospital. Currently Vanco and Cefepime - Current Medication List Current Medications: Active Medications Diazepam (Valium -) 5 mg PO BID [facility] Last Admin: 07/11/17 23:20 Dose: 5 mg Diphenhydramine HCl (Benadryl -) 25 mg PO Q6H PRN PRN Reason: FOR ITCHING Last Admin: 07/12/17 06:09 Dose: 25 mg Docusate Sodium (Colace -) 300 mg PO HS [facility] Last Admin: 07/11/17 23:18 Dose: Not Given Hydroxychloroquine Sulfate (Plaquenil -) 400 mg PO DAILY [facility] Last Admin: 07/11/17 09:58 Dose: 400 mg IV Flush (Picc Line Flush) 8 ml IVPUSH PRN PRN PRN Reason: Protocol Vancomycin HCl 1,000 mg/ (Dextrose) 250 mls @ 250 mls/hr IVPB BID@0100,1300 [facility] PRN Reason: Protocol Last Admin: 07/12/17 00:27 Dose: 250 mls/hr Cefepime HCl 2 gm/ Dextrose 100 mls @ 200 mls/hr IVPB Q8H-IV [facility] Last Admin: 07/12/17 02:07 Dose: 200 mls/hr Sodium Chloride (Normal Saline -) 1,000 mls @ 100 mls/hr IV ASDIR [facility] Last Admin: 07/11/17 14:14 Dose: Not Given Morphine Sulfate (Msir -) 15 mg PO Q4H PRN PRN Reason: PAIN LEVEL 7 - 10 Last Admin: 07/12/17 04:07 Dose: 15 mg Morphine Sulfate (Ms Contin -) 30 mg PO BID [facility] Last Admin: 07/11/17 23:19 Dose: 30 mg Mupirocin (Bactroban 2% Cream -) 1 applic TP BID [facility] Last Admin: 07/11/17 23:20 Dose: 1 applic Pantoprazole Sodium (Protonix -) 40 mg PO BID [facility] Last Admin: 07/11/17 23:19 Dose: 40 mg Potassium Chloride (K-Dur -) 40 meq PO DAILY@0800 [facility] Last Admin: 07/11/17 08:17 Dose: 40 meq Quetiapine Fumarate (Seroquel -) 50 mg PO [facility] Last Admin: 07/11/17 23:19 Dose: 50 mg Topiramate (Topamax -) 25 mg PO [facility] Last Admin: 07/11/17 23:20 Dose: 25 mg - Objective Vital Signs: Vital Signs Temperature 99 F 07/11/17 16:30 Pulse Rate 78 07/11/17 16:30 Respiratory Rate 18 07/11/17 16:30 Blood Pressure 90/57 07/11/17 16:30 O2 Sat by Pulse Oximetry (%) 100 07/11/17 09:00 Constitutional: Yes: Well Nourished, No Distress Neck: Yes: WNL, Supple Cardiovascular: Yes: S1, S2 Respiratory: Yes: WNL, Regular, CTA Bilaterally Extremities: Yes: Other (Left thigh wound sinus) Labs: CBC, BMP 07/10/17 13:25 07/10/17 13:25 Problem List - Problems (1) Chronic osteomyelitis Code(s): M86.60 - OTHER CHRONIC OSTEOMYELITIS, UNSPECIFIED SITE (2) Wound, open, hip or thigh Code(s): S71.009A - UNSPECIFIED OPEN WOUND, UNSPECIFIED HIP, INITIAL ENCOUNTER; S71.109A - UNSPECIFIED OPEN WOUND, UNSPECIFIED THIGH, INITIAL ENCOUNTER (3) Lupus (systemic lupus erythematosus) Code(s): M32.9 - SYSTEMIC LUPUS ERYTHEMATOSUS, UNSPECIFIED Assessment/Plan Laboratory Tests 07/09/17 12:40 Vancomycin Pre-Dose 15.508 H* Assessment Chronic osteomyelitis Plan Discharge planning ? Continue antibiotics for now
[2017-07-12] MEDS: POTASSIUM CHLORIDE TABS 20 MEQ TABLET.ER (FP) PO SCH (08:01)
[2017-07-12] MEDS ORDERED: PT OWN MED DRAWER 7, Y5N ONE ×3 (09:46→17:37)
[2017-07-12] MEDS: morphine SO4 SUSTAINED ACTING 30 MG TABLET.SA PO SCH ×2 (09:58→22:22)
[2017-07-12] MEDS: diazePAM 5 MG TABLET PO SCH ×2 (09:59→22:23)
[2017-07-12] MEDS: HYDROXYCHLOROQUINE SO4 200 MG TABLET (FP) PO SCH (09:59)
[2017-07-12] MEDS: PANTOPRAZOLE 40 MG TABLET (FP) PO SCH ×2 (09:59→22:23)
--- NOTE | 2017-07-12 10:25 | PN ---
Progress Note (short form) - Note Progress Note: Pt seen and examined. She refused our surgery: I&D and placement of a VAC dressing. So she is being treated with IV antibiotics. She is still refusing surgery. We will follow. No surgery planned at this time.
--- NOTE | 2017-07-12 10:50 | PN ---
Progress Note, Physician Chief Complaint: left hip osteomyelitis History of Present Illness: NAD, in bed [facility] refusing rehab, wants to go home, says she will come to the hospital for daily antibiotics if she has to. She states her brother will change the dressings if needed has PICC line seen by ID- who recommends surgical intervention patient still refuses surgery She was seen by Patient advocate, was informed 100% coverage of abx, however, she is currently on one of the abx Q8H - Current Medication List Current Medications: Active Medications Diazepam (Valium -) 5 mg PO BID [facility] Last Admin: 07/12/17 09:59 Dose: 5 mg Diphenhydramine HCl (Benadryl -) 25 mg PO Q6H PRN PRN Reason: FOR ITCHING Last Admin: 07/12/17 06:09 Dose: 25 mg Docusate Sodium (Colace -) 300 mg PO HS [facility] Last Admin: 07/11/17 23:18 Dose: Not Given Hydroxychloroquine Sulfate (Plaquenil -) 400 mg PO DAILY [facility] Last Admin: 07/12/17 09:59 Dose: 400 mg IV Flush (Picc Line Flush) 8 ml IVPUSH PRN PRN PRN Reason: Protocol Vancomycin HCl 1,000 mg/ (Dextrose) 250 mls @ 250 mls/hr IVPB BID@0100,1300 [facility] PRN Reason: Protocol Last Admin: 07/12/17 00:27 Dose: 250 mls/hr Cefepime HCl 2 gm/ Dextrose 100 mls @ 200 mls/hr IVPB Q8H-IV [facility] Last Admin: 07/12/17 10:00 Dose: 200 mls/hr Sodium Chloride (Normal Saline -) 1,000 mls @ 100 mls/hr IV ASDIR [facility] Last Admin: 07/11/17 14:14 Dose: Not Given Morphine Sulfate (Msir -) 15 mg PO Q4H PRN PRN Reason: PAIN LEVEL 7 - 10 Last Admin: 07/12/17 04:07 Dose: 15 mg Morphine Sulfate (Ms Contin -) 30 mg PO BID [facility] Last Admin: 07/12/17 09:58 Dose: 30 mg Mupirocin (Bactroban 2% Cream -) 1 applic TP BID [facility] Last Admin: 07/11/17 23:20 Dose: 1 applic Pantoprazole Sodium (Protonix -) 40 mg PO BID [facility] Last Admin: 07/12/17 09:59 Dose: 40 mg Potassium Chloride (K-Dur -) 40 meq PO DAILY@0800 [facility] Last Admin: 07/12/17 08:01 Dose: 40 meq Quetiapine Fumarate (Seroquel -) 50 mg PO [facility] Last Admin: 07/11/17 23:19 Dose: 50 mg Topiramate (Topamax -) 25 mg PO [facility] Last Admin: 07/11/17 23:20 Dose: 25 mg - Objective Vital Signs: Vital Signs Temperature 98.3 F 07/12/17 07:11 Pulse Rate 74 07/12/17 07:11 Respiratory Rate 20 07/12/17 07:11 Blood Pressure 90/56 07/12/17 07:11 O2 Sat by Pulse Oximetry (%) 99 07/11/17 21:00 Constitutional: Yes: Well Nourished, No Distress, Calm Cardiovascular: Yes: Regular Rate and Rhythm Respiratory: Yes: Regular Musculoskeletal: Yes: WNL Extremities: Yes: WNL Edema: No Peripheral Pulses WNL: Yes Neurological: Yes: Alert, Oriented Psychiatric: Yes: Alert, Oriented Labs: CBC, BMP 07/10/17 13:25 07/10/17 13:25 Problem List - Problems (1) Chronic osteomyelitis Assessment/Plan: Left hip, states it had been draining for a while MRI left hip shows: Penetrating ulceration extending from the cutaneous soft tissues to the level of the left greater trochanter with diffuse surrounding inflammatory changes. Bone marrow edema involving the left greater trochanter is suggestive of focal osteomyelitis. No gross drainable collection noted. Avascular necrosis of the femoral heads noted bilaterally measuring approximately 7 mm. No subchondral collapse. Increased signal within the left femoral shaft could be related to increased red marrow signal. Fibroid uterus. -May need surgical intervention- discussed with patient, further discussion with Orthopedic Dr Youngblood -IV abx via PICC, -wants to go home -ID to decide on abx to be discharged on. -Vascular consult for wound care Code(s): M86.60 - OTHER CHRONIC OSTEOMYELITIS, UNSPECIFIED SITE (2) Lupus (systemic lupus erythematosus) Assessment/Plan: -Sees Dr Kong Laird at [facility] -has been on plaquenil for a while, methotrexate was discontinued due to intolerance. Code(s): M32.9 - SYSTEMIC LUPUS ERYTHEMATOSUS, UNSPECIFIED Assessment/Plan see problem list She will go home with VNS. She states that patient herself and her friend would be responsible for daily wound care and abx administration. Home care infusion company will provide with IV abx and teaching. Spoke to patient extensively in presence of PRAMOD Chaudhry.
[2017-07-12] MEDS: SODIUM CHLORIDE 1,000 ML IV SCH (13:15)
[2017-07-12] MEDS: MUPIROCIN CA 2% TOPICAL CREAM 15 GM TUBE TP SCH ×2 (15:00→22:23)
[2017-07-12] MEDS ORDERED: diphenhydrAMINE HCL 25 MG CAPSULE (FP) PO ONE (17:45)
[2017-07-12] MEDS: NYSTATIN 100,000 UNIT/GM TOPICAL CREAM 15 GM TUBE TP SCH ×2 (19:20→22:26)
[2017-07-12] MEDS ORDERED: QUEtiapine FUMARATE 25 MG TABLET (FP) ONE (22:18)
[2017-07-12] MEDS: DOCUSATE SODIUM 100 MG CAPSULE (FP) PO SCH (22:23)
[2017-07-12] MEDS: TOPIRAMATE 25 MG TABLET (FP) PO SCH (22:23)
[2017-07-12] MEDS: QUEtiapine FUMARATE 50 MG TABLET PO SCH (22:24)
[2017-07-13] MEDS: VANCOMYCIN 1,000 MG in DEXTROSE 5%-WATER - 250 ML IVPB SCH ×2 (00:10→14:17)
[2017-07-13] MEDS: CEFEPIME 2 GM in DEXTROSE 5%-WATER - 100 ML IVPB SCH ×4 (01:28→17:13)
[2017-07-13] MEDS: diphenhydrAMINE HCL 25 MG CAPSULE (FP) PO PRN ×4 (04:06→21:17)
[2017-07-13] MEDS: morphine SULFATE IMMEDIATE RELEASE 30 MG TAB PO PRN ×4 (04:06→18:58)
--- NOTE | 2017-07-13 07:55 | PN ---
Progress Note, Physician Chief Complaint: left hip osteomyelitis History of Present Illness: NAD, in bed has PICC line seen by ID- who recommends surgical intervention patient still refuses surgery She was seen by Patient advocate, was informed 100% coverage of abx, however, she is currently on one of the abx Q8H wants to go home still has not been able to get responsibility form signed for a designated person who will be provided wound care. refuses abx and nystatin stating it is making her itchy. No acute rash noted. receiving benadryl. rash around groin region 2/2 yeast overgrowth - Current Medication List Current Medications: Active Medications Diazepam (Valium -) 5 mg PO BID [facility] Last Admin: 07/12/17 22:23 Dose: 5 mg Diphenhydramine HCl (Benadryl -) 25 mg PO Q6H PRN PRN Reason: FOR ITCHING Last Admin: 07/13/17 04:06 Dose: 25 mg Docusate Sodium (Colace -) 300 mg PO HS [facility] Last Admin: 07/12/17 22:23 Dose: Not Given Hydroxychloroquine Sulfate (Plaquenil -) 400 mg PO DAILY [facility] Last Admin: 07/12/17 09:59 Dose: 400 mg IV Flush (Picc Line Flush) 8 ml IVPUSH PRN PRN PRN Reason: Protocol Vancomycin HCl 1,000 mg/ (Dextrose) 250 mls @ 250 mls/hr IVPB BID@0100,1300 MOI PRN Reason: Protocol Last Admin: 07/13/17 00:10 Dose: 250 mls/hr Cefepime HCl 2 gm/ Dextrose 100 mls @ 200 mls/hr IVPB Q8H-IV [facility] Last Admin: 07/13/17 01:28 Dose: 200 mls/hr Sodium Chloride (Normal Saline -) 1,000 mls @ 100 mls/hr IV ASDIR [facility] Last Admin: 07/12/17 13:15 Dose: Not Given Morphine Sulfate (Msir -) 15 mg PO Q4H PRN PRN Reason: PAIN LEVEL 7 - 10 Last Admin: 07/13/17 04:06 Dose: 15 mg Morphine Sulfate (Ms Contin -) 30 mg PO BID [facility] Last Admin: 07/12/17 22:22 Dose: 30 mg Mupirocin (Bactroban 2% Cream -) 1 applic TP BID [facility] Last Admin: 07/12/17 22:23 Dose: 1 applic Nystatin (Mycostatin Cream -) 1 applic TP BID [facility] Last Admin: 07/12/17 22:26 Dose: 1 applic Pantoprazole Sodium (Protonix -) 40 mg PO BID [facility] Last Admin: 07/12/17 22:23 Dose: 40 mg Potassium Chloride (K-Dur -) 40 meq PO DAILY@0800 [facility] Last Admin: 07/12/17 08:01 Dose: 40 meq Quetiapine Fumarate (Seroquel -) 50 mg PO [facility] Last Admin: 07/12/17 22:24 Dose: 50 mg Topiramate (Topamax -) 25 mg PO [facility] Last Admin: 07/12/17 22:23 Dose: 25 mg - Objective Vital Signs: Vital Signs Temperature 98.4 F 07/13/17 07:22 Pulse Rate 69 07/13/17 07:22 Respiratory Rate 20 07/13/17 07:22 Blood Pressure 93/52 07/13/17 07:22 O2 Sat by Pulse Oximetry (%) 99 07/12/17 21:00 Constitutional: Yes: Well Nourished, No Distress, Calm Cardiovascular: Yes: Regular Rate and Rhythm Respiratory: Yes: Regular Gastrointestinal: Yes: Normal Bowel Sounds, Soft Musculoskeletal: Yes: WNL Extremities: Yes: WNL Edema: No Peripheral Pulses WNL: Yes Wound/Incision: Yes: Dressing Dry and Intact Neurological: Yes: Alert, Oriented Psychiatric: Yes: Alert, Oriented Labs: CBC, BMP 07/10/17 13:25 07/10/17 13:25 Problem List - Problems (1) Chronic osteomyelitis Assessment/Plan: Left hip, states it has been draining for a while MRI left hip shows: Penetrating ulceration extending from the cutaneous soft tissues to the level of the left greater trochanter with diffuse surrounding inflammatory changes. Bone marrow edema involving the left greater trochanter is suggestive of focal osteomyelitis. No gross drainable collection noted. Avascular necrosis of the femoral heads noted bilaterally measuring approximately 7 mm. No subchondral collapse. Increased signal within the left femoral shaft could be related to increased red marrow signal. Fibroid uterus. -May need surgical intervention- discussed with patient, further discussion with Orthopedic Dr Youngblood -IV abx via PICC, -IV abx ordered through home infusion pharmacy -Seen by Vascular consult for wound care -patient fluctuating about her decision to take abx, surgical intervention, going home. Code(s): M86.60 - OTHER CHRONIC OSTEOMYELITIS, UNSPECIFIED SITE (2) Lupus (systemic lupus erythematosus) Assessment/Plan: -Sees Dr Kong Laird at [facility] -has been on plaquenil for a while, methotrexate was discontinued due to intolerance. Code(s): M32.9 - SYSTEMIC LUPUS ERYTHEMATOSUS, UNSPECIFIED (3) Yeast infection Assessment/Plan: -refuses nystatin, would d/c -diflucan 100 mg po daily x 3 days Code(s): B37.9 - CANDIDIASIS, UNSPECIFIED Assessment/Plan see problem list 1600: Informed by financial planner/SW that patient called in patient advocate agency and now wishes to go to [facility]. Informed SW that patient would need to find an accepting physician at [place] to initiate the transfer. Discharge orders placed in case patient wishes to go home.
[2017-07-13] MEDS: POTASSIUM CHLORIDE TABS 20 MEQ TABLET.ER (FP) PO SCH (08:01)
[2017-07-13] MEDS ORDERED: PT OWN MED DRAWER 7, Y5N ONE ×2 (09:47→17:10)
[2017-07-13] MEDS: morphine SO4 SUSTAINED ACTING 30 MG TABLET.SA PO SCH ×2 (09:53→21:17)
[2017-07-13] MEDS: HYDROXYCHLOROQUINE SO4 200 MG TABLET (FP) PO SCH (09:54)
[2017-07-13] MEDS: PANTOPRAZOLE 40 MG TABLET (FP) PO SCH ×2 (09:54→21:18)
[2017-07-13] MEDS: diazePAM 5 MG TABLET PO SCH ×2 (09:54→21:17)
[2017-07-13] MEDS: NYSTATIN 100,000 UNIT/GM TOPICAL CREAM 15 GM TUBE TP SCH ×2 (10:45→21:17)
[2017-07-13] MEDS: SODIUM CHLORIDE 1,000 ML IV SCH (14:17)
[2017-07-13] MEDS: MUPIROCIN CA 2% TOPICAL CREAM 15 GM TUBE TP SCH ×2 (14:18→21:17)
--- NOTE | 2017-07-13 14:50 | PN ---
Progress Note, Physician Chief Complaint: ID Asked to see patient for "reaction to antibiotics whcih she is now declining She has a fungal dermatitis which she says she gets when she gets antibiotics in the past On Examination she has a fungal dermatitis in her groin area seen with one of the nurse assistants now - Current Medication List Current Medications: Active Medications Diazepam (Valium -) 5 mg PO BID [facility] Last Admin: 07/13/17 09:54 Dose: 5 mg Diphenhydramine HCl (Benadryl -) 25 mg PO Q6H PRN PRN Reason: FOR ITCHING Last Admin: 07/13/17 09:52 Dose: 25 mg Docusate Sodium (Colace -) 300 mg PO HS [facility] Last Admin: 07/12/17 22:23 Dose: Not Given Hydroxychloroquine Sulfate (Plaquenil -) 400 mg PO DAILY [facility] Last Admin: 07/13/17 09:54 Dose: 400 mg IV Flush (Picc Line Flush) 8 ml IVPUSH PRN PRN PRN Reason: Protocol Vancomycin HCl 1,000 mg/ (Dextrose) 250 mls @ 250 mls/hr IVPB BID@0100,1300 MOI PRN Reason: Protocol Last Admin: 07/13/17 14:17 Dose: Not Given Cefepime HCl 2 gm/ Dextrose 100 mls @ 200 mls/hr IVPB Q8H-IV [facility] Last Admin: 07/13/17 10:03 Dose: Not Given Sodium Chloride (Normal Saline -) 1,000 mls @ 100 mls/hr IV ASDIR [facility] Last Admin: 07/13/17 14:17 Dose: Not Given Morphine Sulfate (Msir -) 15 mg PO Q4H PRN PRN Reason: PAIN LEVEL 7 - 10 Last Admin: 07/13/17 14:13 Dose: 15 mg Morphine Sulfate (Ms Contin -) 30 mg PO BID [facility] Last Admin: 07/13/17 09:53 Dose: 30 mg Mupirocin (Bactroban 2% Cream -) 1 applic TP BID [facility] Last Admin: 07/13/17 14:18 Dose: 1 applic Nystatin (Mycostatin Cream -) 1 applic TP BID [facility] Last Admin: 07/13/17 10:45 Dose: Not Given Pantoprazole Sodium (Protonix -) 40 mg PO BID [facility] Last Admin: 07/13/17 09:54 Dose: 40 mg Potassium Chloride (K-Dur -) 40 meq PO DAILY@0800 [facility] Last Admin: 07/13/17 08:01 Dose: 40 meq Quetiapine Fumarate (Seroquel -) 50 mg PO [facility] Last Admin: 07/12/17 22:24 Dose: 50 mg Topiramate (Topamax -) 25 mg PO [facility] Last Admin: 07/12/17 22:23 Dose: 25 mg - Objective Vital Signs: Vital Signs Temperature 98.4 F 07/13/17 08:45 Pulse Rate 74 07/13/17 08:45 Respiratory Rate 18 07/13/17 08:45 Blood Pressure 94/61 07/13/17 08:45 O2 Sat by Pulse Oximetry (%) 99 07/12/17 21:00 Constitutional: Yes: Well Nourished Cardiovascular: Yes: S1, S2 Respiratory: Yes: WNL, Regular, CTA Bilaterally Integumentary: Yes: Other (Fungal rash bilaterl groin area) Labs: CBC, BMP 07/10/17 13:25 07/10/17 13:25 Problem List - Problems (1) Chronic osteomyelitis Code(s): M86.60 - OTHER CHRONIC OSTEOMYELITIS, UNSPECIFIED SITE (2) Wound, open, hip or thigh Code(s): S71.009A - UNSPECIFIED OPEN WOUND, UNSPECIFIED HIP, INITIAL ENCOUNTER; S71.109A - UNSPECIFIED OPEN WOUND, UNSPECIFIED THIGH, INITIAL ENCOUNTER (3) Lupus (systemic lupus erythematosus) Code(s): M32.9 - SYSTEMIC LUPUS ERYTHEMATOSUS, UNSPECIFIED Assessment/Plan Laboratory Tests 07/09/17 07/10/17 07/10/17 12:40 13:25 13:25 WBC 4.7 Hgb 9.3 L Hct 30.5 L Plt Count 201 BUN 7 Creatinine 0.9 Creat Clearance w eGFR > 60 Vancomycin Pre-Dose 15.508 H* Assessment Patient is declining antibiotics for now I explained she has limited treatment options for antibiotics and would continue the current meds as prescribed currently. Plan At this time I feel her medical issue would best be provided by another provider specialist perhaps at [place] Topical antifungals to groin or oral diflucan if she would allow. Ye VILLANUEVA
[2017-07-13] MEDS: FLUCONAZOLE 100 MG TABLET (UD) PO SCH (16:30)
[2017-07-13] MEDS ORDERED: QUEtiapine FUMARATE 25 MG TABLET (FP) ONE (21:09)
[2017-07-13] MEDS: DOCUSATE SODIUM 100 MG CAPSULE (FP) PO SCH (21:17)
[2017-07-13] MEDS: TOPIRAMATE 25 MG TABLET (FP) PO SCH (21:18)
[2017-07-13] MEDS: QUEtiapine FUMARATE 50 MG TABLET PO SCH (21:18)
--- NOTE | 2017-07-13 23:39 | DS ---
Physical Examination Vital Signs: Vital Signs Temperature 98.1 F 07/13/17 22:00 Pulse Rate 75 07/13/17 22:00 Respiratory Rate 20 07/13/17 22:00 Blood Pressure 84/51 07/13/17 22:00 O2 Sat by Pulse Oximetry (%) 99 07/13/17 21:00 Constitutional: Yes: Well Nourished, No Distress, Calm Cardiovascular: Yes: Regular Rate and Rhythm Respiratory: Yes: Regular Gastrointestinal: Yes: Normal Bowel Sounds, Soft Musculoskeletal: Yes: WNL Extremities: Yes: WNL Edema: No Peripheral Pulses WNL: Yes Wound/Incision: Yes: Dressing Dry and Intact Neurological: Yes: Alert, Oriented Psychiatric: Yes: Alert, Oriented Labs: CBC, BMP 07/10/17 13:25 07/10/17 13:25 Discharge Summary Reason For Visit: OPEN WOUND OF HIP AND THIGH Current Active Problems Chronic osteomyelitis (Acute) Edema (Acute) Lupus (systemic lupus erythematosus) (Acute) Needs peripherally inserted central catheter (PICC) (Acute) Wound, open, hip or thigh (Acute) Yeast infection (Acute) Hospital Course: Patient is a 46 year old female with a PMH of schizophrenia, SLE (w/associated pericarditis) and a chronic LLE hip ulcer who presents from [facility] at the behest of her PCP, Dr. Rivera, for placement of a PICC line. Patient has been receiving PO abx while at [facility] and denies any allergic or anaphylactic reaction. During her stay she was evaluated by Orthopedic, Infectious disease and vascular for left hip osteomyelitis. It was strongly recommended that she has surgical debridement of the wound in the OR, which patient adamently refused. She persistently wanted to go home but was unable to because there was no provision of responsible democrat at home to provide daily wound care. She also refused to go to [facility]. Eventually, It was recommended that she at least gets cefepime and Vancomycin for at least 6 weeks with the warning that this may not resolve her symptoms. She called in an outside patient advocacy agency, with whom she discussed and decided that she wants to be transferred to [facility] for a possible surgical intervention. Call was made to [facility] transfer center, she was accepted by Dr Shelton- Primary care team and is awaiting bed now. Condition: Guarded - Instructions Diet, Activity, Other Instructions: Follow up with orthopedist outpatient Follow up with Infectious disease outpatient Referrals: Brian Rivera MD [Primary Care Provider] - Disposition: TRANSFER ACUTE CARE/OTHER HOSP - Home Medications Comprehensive Discharge Medication List: Ambulatory Orders Docusate Sodium [Colace -] 100 mg PO HS #30 tab MDD 1 03/20/17 Pantoprazole Sodium [Protonix -] 40 mg PO BID #60 tab MDD 2 03/20/17 Aa/[place]/Arg/C/Zn/Cu [Lps Critical Care Liquid] 30 ml PO TID 07/05/17 Acetaminophen 650 mg PO PRN 07/05/17 Ammonium Lactate Cream [Lac-Hydrin 12% *Cream*] 1 applic TP BID 07/05/17 Ascorbate Calcium [Vitamin C] 500 mg PO DAILY 07/05/17 Bismuth Tribromoph/Petrolatum [Xeroform Petrolatum Dress] 1 each TP PRN Diazepam [Valium] 5 mg PO BID MDD 1 07/05/17 Folic Acid 3 mg PO DAILY 07/05/17 Furosemide [Lasix] 40 mg PO BID 07/05/17 Hydroxychloroquine Sulfate [Plaquenil] 400 mg PO DAILY 07/05/17 Ipratropium/Albuterol Sulfate [Iprat-Albut 0.5-3(2.5) mg/3 ml] 3 ml IH PRN 07/05 Morphine *Immediate Release* [Msir -] 15 mg PO Q4H PRN 07/05/17 Morphine *Sr* [Ms Contin -] 30 mg PO Q12H 07/05/17 Potassium Chloride 40 meq PO DAILY 07/05/17 Quetiapine Fumarate [Seroquel -] 50 mg PO HS 07/05/17 Topiramate 25 mg PO HS 07/05/17 Cefepime [Maxipime (Restricted To Id) -] 2 gm IVPB Q8H-IV vial 07/13/17 Diazepam [Valium] 5 mg PO BID #60 tablet MDD 2 07/13/17 Diphenhydramine HCl [Benadryl Capsule -] 25 mg PO Q6H PRN #120 capsule 07/13/17 Docusate Sodium [Colace -] 300 mg PO HS #30 capsule 07/13/17 Fluconazole [Diflucan -] 100 mg PO DAILY #1 tablet 07/13/17 Hydroxychloroquine So4 [Plaquenil -] 400 mg PO DAILY tablet 07/13/17 Morphine *Immediate Release* [Msir -] 15 mg PO Q4H PRN #180 tab MDD 6 07/13/17 Morphine *Sr* [MS Contin -] 30 mg PO BID #60 tablet.sa MDD 2 07/13/17 Mupirocin Cream [Bactroban 2% Cream -] 1 applic TP BID #1 tube 07/13/17 Pantoprazole Sodium [Protonix -] 40 mg PO BID tablet.ec 07/13/17 Potassium Chloride [K-Dur -] 40 meq PO DAILY@0800 #60 tablet.er 07/13/17 Quetiapine Fumarate [Seroquel -] 50 mg PO HS tablet 07/13/17 Topiramate [Topamax -] 25 mg PO HS tablet 07/13/17 Vancomycin 1,000 mg IVPB BID@0100,1300 vial 07/13/17
[2017-07-14] MEDS: VANCOMYCIN 1,000 MG in DEXTROSE 5%-WATER - 250 ML IVPB SCH ×2 (00:40→15:18)
[2017-07-14] MEDS: CEFEPIME 2 GM in DEXTROSE 5%-WATER - 100 ML IVPB SCH ×3 (01:32→17:01)
[2017-07-14] MEDS: morphine SULFATE IMMEDIATE RELEASE 30 MG TAB PO PRN ×2 (01:32→15:18)
[2017-07-14] MEDS: diphenhydrAMINE HCL 25 MG CAPSULE (FP) PO PRN ×2 (02:17→12:02)
[2017-07-14] MEDS: POTASSIUM CHLORIDE TABS 20 MEQ TABLET.ER (FP) PO SCH (10:54)
[2017-07-14] MEDS: morphine SO4 SUSTAINED ACTING 30 MG TABLET.SA PO SCH ×2 (10:55→22:05)
[2017-07-14] MEDS: PANTOPRAZOLE 40 MG TABLET (FP) PO SCH ×2 (10:56→22:05)
[2017-07-14] MEDS: FLUCONAZOLE 100 MG TABLET (UD) PO SCH (10:56)
[2017-07-14] MEDS: HYDROXYCHLOROQUINE SO4 200 MG TABLET (FP) PO SCH (10:57)
[2017-07-14] MEDS: NYSTATIN 100,000 UNIT/GM TOPICAL CREAM 15 GM TUBE TP SCH ×2 (10:57→22:07)
[2017-07-14] MEDS: diazePAM 5 MG TABLET PO SCH ×2 (10:57→22:05)
[2017-07-14] MEDS: MUPIROCIN CA 2% TOPICAL CREAM 15 GM TUBE TP SCH ×2 (12:02→22:07)
--- NOTE | 2017-07-14 14:21 | PN ---
Progress Note (short form) - Note Progress Note: PATIENT WOULD LIKE TO BE TRANSFERRED TO [facility], ALSO HAS NO RESPONSIBLE CONSTITUTION PARTY TO ASSIST WITH HER WOUNDS FOR DRESSING CHANGES. WILL KEEP PATIENT TIL SUNDAY FOR TRANSFER OR PLAN COORDINATION FOR WOUND CARE.
[2017-07-14] MEDS: SODIUM CHLORIDE 1,000 ML IV SCH (15:24)
[2017-07-14] MEDS ORDERED: PT OWN MED DRAWER 7, Y5N ONE (16:57)
[2017-07-14] MEDS: hydrOXYzine HCL 25 MG TABLET (FP) PO PRN ×2 (16:58→20:39)
[2017-07-14] MEDS: TOPIRAMATE 25 MG TABLET (FP) PO SCH (22:05)
[2017-07-14] MEDS: QUEtiapine FUMARATE 50 MG TABLET PO SCH (22:06)
[2017-07-14] MEDS: DOCUSATE SODIUM 100 MG CAPSULE (FP) PO SCH (22:08)
[2017-07-15] MEDS ORDERED: PT OWN MED DRAWER 7, Y5N ONE ×4 (00:18→17:05)
[2017-07-15] MEDS: VANCOMYCIN 1,000 MG in DEXTROSE 5%-WATER - 250 ML IVPB SCH ×2 (00:25→14:01)
[2017-07-15] MEDS: CEFEPIME 2 GM in DEXTROSE 5%-WATER - 100 ML IVPB SCH ×3 (01:57→18:56)
[2017-07-15] MEDS: morphine SULFATE IMMEDIATE RELEASE 30 MG TAB PO PRN ×3 (06:20→20:32)
[2017-07-15] MEDS: POTASSIUM CHLORIDE TABS 20 MEQ TABLET.ER (FP) PO SCH (08:32)
[2017-07-15] MEDS: NYSTATIN 100,000 UNIT/GM TOPICAL CREAM 15 GM TUBE TP SCH ×2 (10:23→22:33)
[2017-07-15] MEDS: HYDROXYCHLOROQUINE SO4 200 MG TABLET (FP) PO SCH (10:23)
[2017-07-15] MEDS: FLUCONAZOLE 100 MG TABLET (UD) PO SCH (10:24)
[2017-07-15] MEDS: diazePAM 5 MG TABLET PO SCH ×2 (10:24→22:28)
[2017-07-15] MEDS: morphine SO4 SUSTAINED ACTING 30 MG TABLET.SA PO SCH ×2 (10:24→22:28)
[2017-07-15] MEDS: PANTOPRAZOLE 40 MG TABLET (FP) PO SCH ×2 (10:24→22:28)
[2017-07-15] MEDS: MUPIROCIN CA 2% TOPICAL CREAM 15 GM TUBE TP SCH ×2 (11:26→22:34)
--- NOTE | 2017-07-15 12:06 | PN ---
Progress Note (short form) - Note Progress Note: PATIENT'S DISCHARGE ON HOLD UNTIL VNS AND PATIENT'S FAMILY CAN SCHEDULE PROPER FOLLOW UP AT HOME FOR WOUND CARE AND PLAN FOR TREATMENT.
[2017-07-15] MEDS: SODIUM CHLORIDE 1,000 ML IV SCH (13:59)
[2017-07-15] MEDS: diphenhydrAMINE HCL 25 MG CAPSULE (FP) PO PRN ×2 (15:58→20:32)
[2017-07-15] MEDS ORDERED: QUEtiapine FUMARATE 25 MG TABLET (FP) ONE (22:16)
[2017-07-15] MEDS: TOPIRAMATE 25 MG TABLET (FP) PO SCH (22:27)
[2017-07-15] MEDS: DOCUSATE SODIUM 100 MG CAPSULE (FP) PO SCH (22:29)
[2017-07-15] MEDS: QUEtiapine FUMARATE 50 MG TABLET PO SCH (22:31)
[2017-07-16] MEDS: VANCOMYCIN 1,000 MG in DEXTROSE 5%-WATER - 250 ML IVPB SCH ×2 (00:03→13:20)
[2017-07-16] MEDS: CEFEPIME 2 GM in DEXTROSE 5%-WATER - 100 ML IVPB SCH ×3 (01:51→17:16)
[2017-07-16] MEDS: morphine SULFATE IMMEDIATE RELEASE 30 MG TAB PO PRN ×2 (03:44→17:18)
[2017-07-16] MEDS: diphenhydrAMINE HCL 25 MG CAPSULE (FP) PO PRN ×3 (03:46→22:29)
[2017-07-16] MEDS: hydrOXYzine HCL 25 MG TABLET (FP) PO PRN ×3 (08:55→22:32)
[2017-07-16] MEDS: POTASSIUM CHLORIDE TABS 20 MEQ TABLET.ER (FP) PO SCH (08:56)
[2017-07-16] MEDS: morphine SO4 SUSTAINED ACTING 30 MG TABLET.SA PO SCH ×2 (09:00→21:45)
[2017-07-16] MEDS ORDERED: PT OWN MED DRAWER 7, Y5N ONE ×3 (10:20→17:13)
--- NOTE | 2017-07-16 10:21 | PN ---
Progress Note, Physician Chief Complaint: left hip osteomyelitis History of Present Illness: NAD, in bed has PICC line seen by ID- who recommends surgical intervention patient still refuses surgery She was seen by Patient advocate, was informed 100% coverage of abx, however, she is currently on one of the abx Q8H wants to go home still has not been able to get responsibility form signed for a designated person who will be provided wound care. refuses abx and nystatin stating it is making her itchy. No acute rash noted. receiving benadryl. rash around groin region 2/2 yeast overgrowth - Current Medication List Current Medications: Active Medications Diazepam (Valium -) 5 mg PO BID [facility] Last Admin: 07/15/17 22:28 Dose: 5 mg Diphenhydramine HCl (Benadryl -) 25 mg PO Q6H PRN PRN Reason: FOR ITCHING Last Admin: 07/16/17 03:46 Dose: 25 mg Docusate Sodium (Colace -) 300 mg PO HS [facility] Last Admin: 07/15/17 22:29 Dose: Not Given Hydroxychloroquine Sulfate (Plaquenil -) 400 mg PO DAILY [facility] Last Admin: 07/15/17 10:23 Dose: 400 mg Hydroxyzine HCl (Atarax -) 50 mg PO TID PRN PRN Reason: FOR ITCHING Last Admin: 07/16/17 08:55 Dose: 50 mg IV Flush (Picc Line Flush) 8 ml IVPUSH PRN PRN PRN Reason: Protocol Vancomycin HCl 1,000 mg/ (Dextrose) 250 mls @ 250 mls/hr IVPB BID@0100,1300 MOI PRN Reason: Protocol Last Admin: 07/16/17 00:03 Dose: 250 mls/hr Cefepime HCl 2 gm/ Dextrose 100 mls @ 200 mls/hr IVPB Q8H-IV [facility] Last Admin: 07/16/17 01:51 Dose: 200 mls/hr Sodium Chloride (Normal Saline -) 1,000 mls @ 100 mls/hr IV ASDIR [facility] Last Admin: 07/15/17 13:59 Dose: Not Given Morphine Sulfate (Msir -) 15 mg PO Q4H PRN PRN Reason: PAIN LEVEL 7 - 10 Last Admin: 07/16/17 03:44 Dose: 15 mg Morphine Sulfate (Ms Contin -) 30 mg PO BID [facility] Last Admin: 07/16/17 09:00 Dose: 30 mg Mupirocin (Bactroban 2% Cream -) 1 applic TP BID [facility] Last Admin: 07/15/17 22:34 Dose: 1 applic Nystatin (Mycostatin Cream -) 1 applic TP BID [facility] Last Admin: 07/15/17 22:33 Dose: 1 applic Pantoprazole Sodium (Protonix -) 40 mg PO BID [facility] Last Admin: 07/15/17 22:28 Dose: 40 mg Potassium Chloride (K-Dur -) 40 meq PO DAILY@0800 [facility] Last Admin: 07/16/17 08:56 Dose: 40 meq Quetiapine Fumarate (Seroquel -) 50 mg PO [facility] Last Admin: 07/15/17 22:31 Dose: 50 mg Topiramate (Topamax -) 25 mg PO [facility] Last Admin: 07/15/17 22:27 Dose: 25 mg - Objective Vital Signs: Vital Signs Temperature 98.1 F 07/15/17 06:52 Pulse Rate 62 07/16/17 06:24 Respiratory Rate 18 07/16/17 06:24 Blood Pressure 88/56 07/16/17 06:24 O2 Sat by Pulse Oximetry (%) 99 07/14/17 21:00 Constitutional: Yes: Well Nourished, No Distress, Calm Respiratory: Yes: Regular Gastrointestinal: Yes: Normal Bowel Sounds, Soft Musculoskeletal: Yes: WNL Extremities: Yes: WNL Edema: No Peripheral Pulses WNL: Yes Integumentary: Yes: Other (left hip wound 2/2 osteomyelitis) Wound/Incision: Yes: Dressing Dry and Intact Neurological: Yes: Alert, Oriented Psychiatric: Yes: Alert, Oriented Labs: CBC, BMP 07/10/17 13:25 07/10/17 13:25 Problem List - Problems (1) Chronic osteomyelitis Assessment/Plan: Left hip, states it has been draining for a while MRI left hip shows: Penetrating ulceration extending from the cutaneous soft tissues to the level of the left greater trochanter with diffuse surrounding inflammatory changes. Bone marrow edema involving the left greater trochanter is suggestive of focal osteomyelitis. No gross drainable collection noted. Avascular necrosis of the femoral heads noted bilaterally measuring approximately 7 mm. No subchondral collapse. Increased signal within the left femoral shaft could be related to increased red marrow signal. Fibroid uterus. -May need surgical intervention- discussed with patient, further discussion with Orthopedic Dr Youngblood -IV abx via PICC, -IV abx ordered through home infusion pharmacy -Seen by Vascular consult for wound care -patient fluctuating about her decision to take abx, surgical intervention, going home. -for now there is no safe discharge plan in place. Pt refuses SNF, is unable to go home due to no provision f wound care at home by a responsible libertarian. She wants to be transferred to [facility] for further management Code(s): M86.60 - OTHER CHRONIC OSTEOMYELITIS, UNSPECIFIED SITE (2) Lupus (systemic lupus erythematosus) Assessment/Plan: -Sees Dr Kong Laird at [facility] -has been on plaquenil for a while, methotrexate was discontinued due to intolerance. Code(s): M32.9 - SYSTEMIC LUPUS ERYTHEMATOSUS, UNSPECIFIED (3) Yeast infection Assessment/Plan: -refuses nystatin, would d/c added clotri/betamet cream BID Code(s): B37.9 - CANDIDIASIS, UNSPECIFIED Assessment/Plan see problem list Spoke to Dr Shelton at [facility], at , who states that he will speak to Dr Triana because he doesn't usually accept primary care transfers. Patient and pt advocate Heydi made aware. Also left message for Dr Triana on her cell at to call back if needed
[2017-07-16] MEDS: PANTOPRAZOLE 40 MG TABLET (FP) PO SCH ×2 (10:27→21:44)
[2017-07-16] MEDS: HYDROXYCHLOROQUINE SO4 200 MG TABLET (FP) PO SCH (10:27)
[2017-07-16] MEDS: MUPIROCIN CA 2% TOPICAL CREAM 15 GM TUBE TP SCH ×2 (10:28→21:50)
[2017-07-16] MEDS: PICC LINE 8 ML FLUSH PROTOCOL IVPUSH PRN ×2 (10:28→17:18)
[2017-07-16] MEDS: diazePAM 5 MG TABLET PO SCH ×2 (10:28→21:45)
[2017-07-16] MEDS: NYSTATIN 100,000 UNIT/GM TOPICAL CREAM 15 GM TUBE TP SCH ×2 (10:28→22:17)
[2017-07-16] MEDS: SODIUM CHLORIDE 1,000 ML IV SCH (17:15)
[2017-07-16] MEDS ORDERED: QUEtiapine FUMARATE 25 MG TABLET (FP) ONE (21:44)
[2017-07-16] MEDS: QUEtiapine FUMARATE 50 MG TABLET PO SCH (21:45)
[2017-07-16] MEDS: TOPIRAMATE 25 MG TABLET (FP) PO SCH (21:45)
[2017-07-16] MEDS: NYSTATIN POWDER 100,000 UNITS/GM - 15 GM TOPICAL POWDER TP SCH (21:50)
[2017-07-16] MEDS: DOCUSATE SODIUM 100 MG CAPSULE (FP) PO SCH (21:50)
[2017-07-16] MEDS: CLOTRIMAZOLE/BETAMET DIPROP 15 GM TUBE TP SCH (22:09)
[2017-07-17] MEDS: VANCOMYCIN 1,000 MG in DEXTROSE 5%-WATER - 250 ML IVPB SCH ×2 (00:31→13:43)
[2017-07-17] MEDS: CEFEPIME 2 GM in DEXTROSE 5%-WATER - 100 ML IVPB SCH ×3 (01:29→17:27)
[2017-07-17] MEDS: diphenhydrAMINE HCL 25 MG CAPSULE (FP) PO PRN ×3 (04:22→22:40)
[2017-07-17] MEDS: morphine SULFATE IMMEDIATE RELEASE 30 MG TAB PO PRN (04:27)
[2017-07-17] MEDS: POTASSIUM CHLORIDE TABS 20 MEQ TABLET.ER (FP) PO SCH (08:48)
--- NOTE | 2017-07-17 09:51 | PN ---
Progress Note, Physician Chief Complaint: left hip osteomyelitis History of Present Illness: NAD, in bed receiving IV abc via PICC -complains of itchiness around her groind -complete diflucan 100 mg x 3 -on hydroxyzine and benadryl -started on clotrimazole/bet top -Called [facility], was informed that she has been accepted by the Primary team of Dr Shelton, now just awaiting bed which could take anywhere between 24-48 hours. -transfer papers signed - Current Medication List Current Medications: Active Medications Clotrimazole (Lotrisone Cream (Small Tube)) 1 applic TP BID [facility] Last Admin: 07/16/17 22:09 Dose: 1 units Diazepam (Valium -) 5 mg PO BID [facility] Last Admin: 07/16/17 21:45 Dose: 5 mg Diphenhydramine HCl (Benadryl -) 25 mg PO Q6H PRN PRN Reason: FOR ITCHING Last Admin: 07/17/17 04:22 Dose: 25 mg Docusate Sodium (Colace -) 300 mg PO HS [facility] Last Admin: 07/16/17 21:50 Dose: Not Given Hydroxychloroquine Sulfate (Plaquenil -) 400 mg PO DAILY [facility] Last Admin: 07/16/17 10:27 Dose: 400 mg Hydroxyzine HCl (Atarax -) 50 mg PO TID PRN PRN Reason: FOR ITCHING Last Admin: 07/16/17 22:32 Dose: 50 mg IV Flush (Picc Line Flush) 8 ml IVPUSH PRN PRN PRN Reason: Protocol Last Admin: 07/16/17 17:18 Dose: 8 ml Vancomycin HCl 1,000 mg/ (Dextrose) 250 mls @ 250 mls/hr IVPB BID@0100,1300 [facility]I PRN Reason: Protocol Last Admin: 07/17/17 00:31 Dose: 250 mls/hr Cefepime HCl 2 gm/ Dextrose 100 mls @ 200 mls/hr IVPB Q8H-IV [facility] Last Admin: 07/17/17 01:29 Dose: 200 mls/hr Sodium Chloride (Normal Saline -) 1,000 mls @ 100 mls/hr IV ASDIR [facility] Last Admin: 07/16/17 17:15 Dose: Not Given Morphine Sulfate (Msir -) 15 mg PO Q4H PRN PRN Reason: PAIN LEVEL 7 - 10 Last Admin: 07/17/17 04:27 Dose: 15 mg Morphine Sulfate (Ms Contin -) 30 mg PO BID [facility] Last Admin: 07/16/17 21:45 Dose: 30 mg Mupirocin (Bactroban 2% Cream -) 1 applic TP BID [facility] Last Admin: 07/16/17 21:50 Dose: 1 applic Nystatin (Mycostatin Cream -) 1 applic TP BID [facility] Last Admin: 07/16/17 22:17 Dose: Not Given Nystatin (Nystop Powder -) 1 applic TP DAILY [facility] Last Admin: 07/16/17 21:50 Dose: 1 applic Pantoprazole Sodium (Protonix -) 40 mg PO BID [facility] Last Admin: 07/16/17 21:44 Dose: 40 mg Potassium Chloride (K-Dur -) 40 meq PO DAILY@0800 [facility] Last Admin: 07/17/17 08:48 Dose: 40 meq Quetiapine Fumarate (Seroquel -) 50 mg PO [facility] Last Admin: 07/16/17 21:45 Dose: 50 mg Topiramate (Topamax -) 25 mg PO [facility] Last Admin: 07/16/17 21:45 Dose: 25 mg - Objective Vital Signs: Vital Signs Temperature 98.4 F 07/17/17 06:57 Pulse Rate 67 07/17/17 06:57 Respiratory Rate 18 07/17/17 06:57 Blood Pressure 94/59 07/17/17 06:57 O2 Sat by Pulse Oximetry (%) 98 07/16/17 21:00 Constitutional: Yes: Well Nourished, No Distress, Calm Cardiovascular: Yes: Regular Rate and Rhythm Respiratory: Yes: Regular Gastrointestinal: Yes: Normal Bowel Sounds, Soft Musculoskeletal: Yes: WNL Extremities: Yes: WNL Edema: No Peripheral Pulses WNL: Yes Wound/Incision: Yes: Dressing Dry and Intact Neurological: Yes: Alert, Oriented Psychiatric: Yes: Alert, Oriented Labs: CBC, BMP 07/10/17 13:25 07/10/17 13:25 Problem List - Problems (1) Chronic osteomyelitis Assessment/Plan: Left hip, states it has been draining for a while MRI left hip shows: Penetrating ulceration extending from the cutaneous soft tissues to the level of the left greater trochanter with diffuse surrounding inflammatory changes. Bone marrow edema involving the left greater trochanter is suggestive of focal osteomyelitis. No gross drainable collection noted. Avascular necrosis of the femoral heads noted bilaterally measuring approximately 7 mm. No subchondral collapse. Increased signal within the left femoral shaft could be related to increased red marrow signal. Fibroid uterus. -IV abx via PICC, -Seen by Vascular consult for wound care - She wants to be transferred to [facility] for further management, which is in process Code(s): M86.60 - OTHER CHRONIC OSTEOMYELITIS, UNSPECIFIED SITE (2) Lupus (systemic lupus erythematosus) Assessment/Plan: -Sees Dr Kong Laird at [facility] -has been on plaquenil for a while, methotrexate was discontinued due to intolerance. -left msg for Dr Byron Triana on her cell to call back, my cell number provided in the msg. Code(s): M32.9 - SYSTEMIC LUPUS ERYTHEMATOSUS, UNSPECIFIED (3) Yeast infection Assessment/Plan: -refuses nystatin, would d/c added clotri/betamet cream BID Code(s): B37.9 - CANDIDIASIS, UNSPECIFIED Assessment/Plan see problem list
[2017-07-17] MEDS ORDERED: PT OWN MED DRAWER 7, Y5N ONE ×2 (10:11→17:23)
[2017-07-17] MEDS: MUPIROCIN CA 2% TOPICAL CREAM 15 GM TUBE TP SCH (10:13)
[2017-07-17] MEDS: CLOTRIMAZOLE/BETAMET DIPROP 15 GM TUBE TP SCH ×2 (10:17→22:45)
[2017-07-17] MEDS: morphine SO4 SUSTAINED ACTING 30 MG TABLET.SA PO SCH ×2 (10:18→22:39)
[2017-07-17] MEDS: PANTOPRAZOLE 40 MG TABLET (FP) PO SCH ×2 (10:19→22:40)
[2017-07-17] MEDS: NYSTATIN POWDER 100,000 UNITS/GM - 15 GM TOPICAL POWDER TP SCH (10:19)
[2017-07-17] MEDS: HYDROXYCHLOROQUINE SO4 200 MG TABLET (FP) PO SCH (10:19)
[2017-07-17] MEDS: diazePAM 5 MG TABLET PO SCH ×2 (10:19→22:39)
[2017-07-17] MEDS: SODIUM CHLORIDE 1,000 ML IV SCH (10:56)
[2017-07-17] MEDS: FLUCONAZOLE 100 MG TABLET (UD) PO SCH (10:56)
[2017-07-17] MEDS: hydrOXYzine HCL 25 MG TABLET (FP) PO PRN ×2 (16:47→22:40)
[2017-07-17] MEDS ORDERED: QUEtiapine FUMARATE 25 MG TABLET (FP) ONE (22:25)
[2017-07-17] MEDS: TOPIRAMATE 25 MG TABLET (FP) PO SCH (22:38)
[2017-07-17] MEDS: DOCUSATE SODIUM 100 MG CAPSULE (FP) PO SCH (22:38)
[2017-07-17] MEDS: QUEtiapine FUMARATE 50 MG TABLET PO SCH (22:41)
[2017-07-18] MEDS ORDERED: PT OWN MED DRAWER 7, Y5N ONE ×4 (00:45→17:26)
[2017-07-18] MEDS: VANCOMYCIN 1,000 MG in DEXTROSE 5%-WATER - 250 ML IVPB SCH ×2 (00:52→14:05)
[2017-07-18] MEDS: CEFEPIME 2 GM in DEXTROSE 5%-WATER - 100 ML IVPB SCH ×3 (02:36→17:37)
[2017-07-18] MEDS: morphine SULFATE IMMEDIATE RELEASE 30 MG TAB PO PRN ×2 (03:21→14:06)
[2017-07-18] MEDS: POTASSIUM CHLORIDE TABS 20 MEQ TABLET.ER (FP) PO SCH (08:29)
--- NOTE | 2017-07-18 09:47 | PN ---
Progress Note, Physician Chief Complaint: left hip osteomyelitis History of Present Illness: NAD, in bed receiving IV abc via PICC -complains of itchiness around her groind -complete diflucan 100 mg x 3 -on hydroxyzine and benadryl -started on clotrimazole/bet top -Called [facility] center, was informed that she has been accepted by the Primary team of Dr Shelton, now just awaiting bed which could take anywhere between 24-48 hours. -transfer papers signed - Current Medication List Current Medications: Active Medications Clotrimazole (Lotrisone Cream (Small Tube)) 1 applic TP BID [facility] Last Admin: 07/17/17 22:45 Dose: 1 applic Diazepam (Valium -) 5 mg PO BID [facility] Last Admin: 07/17/17 22:39 Dose: 5 mg Diphenhydramine HCl (Benadryl -) 50 mg PO Q6H PRN PRN Reason: FOR ITCHING Last Admin: 07/17/17 22:40 Dose: 50 mg Docusate Sodium (Colace -) 300 mg PO HS [facility] Last Admin: 07/17/17 22:38 Dose: Not Given Fluconazole (Diflucan -) 100 mg PO DAILY [facility] Stop: 07/19/17 10:01 Last Admin: 07/17/17 10:56 Dose: 100 mg Hydroxychloroquine Sulfate (Plaquenil -) 400 mg PO DAILY [facility] Last Admin: 07/17/17 10:19 Dose: 400 mg Hydroxyzine HCl (Atarax -) 50 mg PO TID PRN PRN Reason: FOR ITCHING Last Admin: 07/17/17 22:40 Dose: 50 mg IV Flush (Picc Line Flush) 8 ml IVPUSH PRN PRN PRN Reason: Protocol Last Admin: 07/16/17 17:18 Dose: 8 ml Vancomycin HCl 1,000 mg/ (Dextrose) 250 mls @ 250 mls/hr IVPB BID@0100,1300 MOI PRN Reason: Protocol Last Admin: 07/18/17 00:52 Dose: 250 mls/hr Cefepime HCl 2 gm/ Dextrose 100 mls @ 200 mls/hr IVPB Q8H-IV [facility] Last Admin: 07/18/17 02:36 Dose: 200 mls/hr Sodium Chloride (Normal Saline -) 1,000 mls @ 5 mls/hr IV ASDIR [facility] Last Admin: 07/17/17 10:56 Dose: Not Given Morphine Sulfate (Msir -) 15 mg PO Q4H PRN PRN Reason: PAIN LEVEL 7 - 10 Last Admin: 07/18/17 03:21 Dose: 15 mg Morphine Sulfate (Ms Contin -) 30 mg PO BID [facility] Last Admin: 07/17/17 22:39 Dose: 30 mg Nystatin (Nystop Powder -) 1 applic TP DAILY [facility] Last Admin: 07/17/17 10:19 Dose: 1 applic Pantoprazole Sodium (Protonix -) 40 mg PO BID [facility] Last Admin: 07/17/17 22:40 Dose: 40 mg Potassium Chloride (K-Dur -) 40 meq PO DAILY@0800 [facility] Last Admin: 07/18/17 08:29 Dose: 40 meq Quetiapine Fumarate (Seroquel -) 50 mg PO [facility] Last Admin: 07/17/17 22:41 Dose: 50 mg Topiramate (Topamax -) 25 mg PO [facility] Last Admin: 07/17/17 22:38 Dose: 25 mg - Objective Vital Signs: Vital Signs Temperature 97.8 F 07/18/17 06:33 Pulse Rate 61 07/18/17 06:33 Respiratory Rate 20 07/18/17 06:33 Blood Pressure 94/56 07/18/17 06:33 O2 Sat by Pulse Oximetry (%) 99 07/17/17 21:00 Constitutional: Yes: Well Nourished, No Distress, Calm Cardiovascular: Yes: Regular Rate and Rhythm Respiratory: Yes: Regular Gastrointestinal: Yes: WNL Musculoskeletal: Yes: WNL Edema: No Peripheral Pulses WNL: Yes Wound/Incision: Yes: Dressing Dry and Intact Neurological: Yes: Alert, Oriented Psychiatric: Yes: Alert, Oriented Labs: CBC, BMP 07/10/17 13:25 07/10/17 13:25 Problem List - Problems (1) Chronic osteomyelitis Assessment/Plan: Left hip, states it has been draining for a while MRI left hip shows: Penetrating ulceration extending from the cutaneous soft tissues to the level of the left greater trochanter with diffuse surrounding inflammatory changes. Bone marrow edema involving the left greater trochanter is suggestive of focal osteomyelitis. No gross drainable collection noted. Avascular necrosis of the femoral heads noted bilaterally measuring approximately 7 mm. No subchondral collapse. Increased signal within the left femoral shaft could be related to increased red marrow signal. Fibroid uterus. -IV abx via PICC, -Seen by Vascular consult for wound care - She wants to be transferred to [facility] for further management, which is in process Code(s): M86.60 - OTHER CHRONIC OSTEOMYELITIS, UNSPECIFIED SITE (2) Lupus (systemic lupus erythematosus) Assessment/Plan: -Sees Dr Kong Laird at [facility] -has been on plaquenil for a while, methotrexate was discontinued due to intolerance. -left msg for Dr Byron Triana on her cell to call back, my cell number provided in the msg. Code(s): M32.9 - SYSTEMIC LUPUS ERYTHEMATOSUS, UNSPECIFIED (3) Yeast infection Assessment/Plan: -refuses nystatin, would d/c added clotri/betamet cream BID -another round of flucanozole 100 mg po daily for 3 days Code(s): B37.9 - CANDIDIASIS, UNSPECIFIED Assessment/Plan see problem list Awaiting bed at [facility]
[2017-07-18] MEDS: HYDROXYCHLOROQUINE SO4 200 MG TABLET (FP) PO SCH (10:24)
[2017-07-18] MEDS: morphine SO4 SUSTAINED ACTING 30 MG TABLET.SA PO SCH ×2 (10:24→21:10)
[2017-07-18] MEDS: FLUCONAZOLE 100 MG TABLET (UD) PO SCH (10:24)
[2017-07-18] MEDS: SODIUM CHLORIDE 1,000 ML IV SCH ×2 (10:25→17:38)
[2017-07-18] MEDS: PANTOPRAZOLE 40 MG TABLET (FP) PO SCH ×2 (10:25→21:10)
[2017-07-18] MEDS: diazePAM 5 MG TABLET PO SCH ×2 (10:25→21:12)
[2017-07-18] MEDS: NYSTATIN POWDER 100,000 UNITS/GM - 15 GM TOPICAL POWDER TP SCH (10:26)
[2017-07-18] MEDS: CLOTRIMAZOLE/BETAMET DIPROP 15 GM TUBE TP SCH ×2 (10:27→21:17)
[2017-07-18] MEDS: hydrOXYzine HCL 25 MG TABLET (FP) PO PRN ×2 (12:06→21:10)
[2017-07-18] MEDS: diphenhydrAMINE HCL 25 MG CAPSULE (FP) PO PRN ×2 (14:07→21:11)
[2017-07-18] MEDS ORDERED: QUEtiapine FUMARATE 25 MG TABLET (FP) ONE (20:52)
[2017-07-18] MEDS: QUEtiapine FUMARATE 50 MG TABLET PO SCH (21:12)
[2017-07-18] MEDS: DOCUSATE SODIUM 100 MG CAPSULE (FP) PO SCH (21:12)
[2017-07-18] MEDS: TOPIRAMATE 25 MG TABLET (FP) PO SCH (21:12)
[2017-07-19] MEDS ORDERED: PT OWN MED DRAWER 7, Y5N ONE ×5 (00:49→22:26)
[2017-07-19] MEDS: VANCOMYCIN 1,000 MG in DEXTROSE 5%-WATER - 250 ML IVPB SCH ×2 (01:12→12:49)
[2017-07-19] MEDS: CEFEPIME 2 GM in DEXTROSE 5%-WATER - 100 ML IVPB SCH ×3 (03:16→17:55)
[2017-07-19] MEDS: morphine SULFATE IMMEDIATE RELEASE 30 MG TAB PO PRN (04:36)
[2017-07-19] MEDS: diphenhydrAMINE HCL 25 MG CAPSULE (FP) PO PRN ×2 (04:36→12:56)
[2017-07-19] MEDS: morphine SO4 SUSTAINED ACTING 30 MG TABLET.SA PO SCH ×2 (09:47→22:23)
[2017-07-19] MEDS: FLUCONAZOLE 100 MG TABLET (UD) PO SCH (09:47)
[2017-07-19] MEDS: diazePAM 5 MG TABLET PO SCH ×2 (09:47→22:23)
[2017-07-19] MEDS: CLOTRIMAZOLE/BETAMET DIPROP 15 GM TUBE TP SCH ×2 (09:48→22:30)
[2017-07-19] MEDS: hydrOXYzine HCL 25 MG TABLET (FP) PO PRN ×2 (09:48→18:57)
[2017-07-19] MEDS: PANTOPRAZOLE 40 MG TABLET (FP) PO SCH ×2 (09:48→22:23)
[2017-07-19] MEDS: POTASSIUM CHLORIDE TABS 20 MEQ TABLET.ER (FP) PO SCH (09:48)
[2017-07-19] MEDS: SODIUM CHLORIDE 1,000 ML IV SCH (09:49)
--- NOTE | 2017-07-19 11:36 | PN ---
Progress Note, Physician Chief Complaint: left hip osteomyelitis History of Present Illness: NAD, in bed receiving IV abc via PICC -awaiting bed at [facility] - Current Medication List Current Medications: Active Medications Clotrimazole (Lotrisone Cream (Small Tube)) 1 applic TP BID [facility] Last Admin: 07/19/17 09:48 Dose: 1 applic Diazepam (Valium -) 5 mg PO BID [facility] Last Admin: 07/19/17 09:47 Dose: 5 mg Diphenhydramine HCl (Benadryl -) 50 mg PO Q6H PRN PRN Reason: FOR ITCHING Last Admin: 07/19/17 04:36 Dose: 50 mg Docusate Sodium (Colace -) 300 mg PO HS [facility] Last Admin: 07/18/17 21:12 Dose: Not Given Hydroxychloroquine Sulfate (Plaquenil -) 400 mg PO DAILY [facility] Last Admin: 07/18/17 10:24 Dose: 400 mg Hydroxyzine HCl (Atarax -) 50 mg PO TID PRN PRN Reason: FOR ITCHING Last Admin: 07/19/17 09:48 Dose: 50 mg IV Flush (Picc Line Flush) 8 ml IVPUSH PRN PRN PRN Reason: Protocol Last Admin: 07/16/17 17:18 Dose: 8 ml Vancomycin HCl 1,000 mg/ (Dextrose) 250 mls @ 250 mls/hr IVPB BID@0100,1300 MOI PRN Reason: Protocol Last Admin: 07/19/17 01:12 Dose: 250 mls/hr Cefepime HCl 2 gm/ Dextrose 100 mls @ 200 mls/hr IVPB Q8H-IV [facility] Last Admin: 07/19/17 09:46 Dose: 200 mls/hr Sodium Chloride (Normal Saline -) 1,000 mls @ 5 mls/hr IV ASDIR [facility] Last Admin: 07/19/17 09:49 Dose: Not Given Morphine Sulfate (Msir -) 15 mg PO Q4H PRN PRN Reason: PAIN LEVEL 7 - 10 Last Admin: 07/19/17 04:36 Dose: 15 mg Morphine Sulfate (Ms Contin -) 30 mg PO BID [facility] Last Admin: 07/19/17 09:47 Dose: 30 mg Nystatin (Nystop Powder -) 1 applic TP DAILY [facility] Last Admin: 07/18/17 10:26 Dose: 1 applic Pantoprazole Sodium (Protonix -) 40 mg PO BID [facility] Last Admin: 07/19/17 09:48 Dose: 40 mg Potassium Chloride (K-Dur -) 40 meq PO DAILY@0800 [facility] Last Admin: 07/19/17 09:48 Dose: 40 meq Quetiapine Fumarate (Seroquel -) 50 mg PO [facility] Last Admin: 07/18/17 21:12 Dose: 50 mg Topiramate (Topamax -) 25 mg PO [facility] Last Admin: 07/18/17 21:12 Dose: 25 mg - Objective Vital Signs: Vital Signs Temperature 98.3 F 07/19/17 06:00 Pulse Rate 67 07/19/17 06:00 Respiratory Rate 20 07/19/17 06:00 Blood Pressure 96/59 07/19/17 06:00 O2 Sat by Pulse Oximetry (%) 100 07/18/17 21:00 Constitutional: Yes: Well Nourished, No Distress, Calm Neurological: Yes: Alert, Oriented Psychiatric: Yes: Alert, Oriented Labs: CBC, BMP 07/10/17 13:25 07/10/17 13:25 Problem List - Problems (1) Chronic osteomyelitis Assessment/Plan: Left hip, states it has been draining for a while MRI left hip shows: Penetrating ulceration extending from the cutaneous soft tissues to the level of the left greater trochanter with diffuse surrounding inflammatory changes. Bone marrow edema involving the left greater trochanter is suggestive of focal osteomyelitis. No gross drainable collection noted. Avascular necrosis of the femoral heads noted bilaterally measuring approximately 7 mm. No subchondral collapse. Increased signal within the left femoral shaft could be related to increased red marrow signal. Fibroid uterus. -IV abx via PICC, -Seen by Vascular consult for wound care - She wants to be transferred to [facility] for further management, which is in process Code(s): M86.60 - OTHER CHRONIC OSTEOMYELITIS, UNSPECIFIED SITE (2) Lupus (systemic lupus erythematosus) Assessment/Plan: -Sees Dr Kong Laird at [facility] -has been on plaquenil for a while, methotrexate was discontinued due to intolerance. -left msg for Dr Byron Triana on her cell to call back, my cell number provided in the msg. Code(s): M32.9 - SYSTEMIC LUPUS ERYTHEMATOSUS, UNSPECIFIED (3) Yeast infection Assessment/Plan: -refuses nystatin, would d/c added clotri/betamet cream BID -another round of flucanozole 100 mg po daily for 3 days Code(s): B37.9 - CANDIDIASIS, UNSPECIFIED Assessment/Plan see problem list Awaiting bed at [facility]
[2017-07-19] MEDS: HYDROXYCHLOROQUINE SO4 200 MG TABLET (FP) PO SCH (12:49)
[2017-07-19] MEDS: NYSTATIN POWDER 100,000 UNITS/GM - 15 GM TOPICAL POWDER TP SCH (12:50)
--- NOTE | 2017-07-19 13:10 | PN ---
Progress Note (short form) - Note Progress Note: spoke to Dr chilel from [facility]- gave him update on patient- still awaiting bed dr chilel wants rheum to see patient will get dr umana to see patient Problem List - Problems (1) Wound, open, hip or thigh Code(s): S71.009A - UNSPECIFIED OPEN WOUND, UNSPECIFIED HIP, INITIAL ENCOUNTER; S71.109A - UNSPECIFIED OPEN WOUND, UNSPECIFIED THIGH, INITIAL ENCOUNTER (2) Lupus Code(s): L93.0 - DISCOID LUPUS ERYTHEMATOSUS (3) Edema Code(s): R60.9 - EDEMA, UNSPECIFIED
[2017-07-19] MEDS ORDERED: QUEtiapine FUMARATE 25 MG TABLET (FP) ONE (22:10)
[2017-07-19] MEDS: TOPIRAMATE 25 MG TABLET (FP) PO SCH (22:23)
[2017-07-19] MEDS: DOCUSATE SODIUM 100 MG CAPSULE (FP) PO SCH (22:25)
[2017-07-19] MEDS: QUEtiapine FUMARATE 50 MG TABLET PO SCH (22:27)
[2017-07-20] MEDS: VANCOMYCIN 1,000 MG in DEXTROSE 5%-WATER - 250 ML IVPB SCH ×2 (00:36→14:51)
[2017-07-20] MEDS: CEFEPIME 2 GM in DEXTROSE 5%-WATER - 100 ML IVPB SCH ×3 (02:15→19:43)
[2017-07-20] MEDS: morphine SULFATE IMMEDIATE RELEASE 30 MG TAB PO PRN (02:39)
[2017-07-20] MEDS: hydrOXYzine HCL 25 MG TABLET (FP) PO PRN ×3 (02:41→21:57)
--- NOTE | 2017-07-20 09:58 | PN ---
Progress Note, Physician Chief Complaint: left hip osteomyelitis History of Present Illness: NAD, in bed receiving IV abc via PICC -awaiting bed at [facility] -awaiting to be seen by rheumatology here, not sure why because her telephone directory deliverer is Dr Triana at [facility]. But Dr Tapia, the accepting physician at [facility] wants her to be seen by Rheumatology here as well. Pt's Lupus is chronic and she is not in an acute exacerbation - Current Medication List Current Medications: Active Medications Clotrimazole (Lotrisone Cream (Small Tube)) 1 applic TP BID [facility] Last Admin: 07/19/17 22:30 Dose: 1 applic Diazepam (Valium -) 5 mg PO BID [facility] Last Admin: 07/19/17 22:23 Dose: 5 mg Diphenhydramine HCl (Benadryl -) 50 mg PO Q6H PRN PRN Reason: FOR ITCHING Last Admin: 07/19/17 12:56 Dose: 50 mg Docusate Sodium (Colace -) 300 mg PO HS [facility] Last Admin: 07/19/17 22:25 Dose: Not Given Hydroxychloroquine Sulfate (Plaquenil -) 400 mg PO DAILY [facility] Last Admin: 07/19/17 12:49 Dose: 400 mg Hydroxyzine HCl (Atarax -) 50 mg PO TID PRN PRN Reason: FOR ITCHING Last Admin: 07/20/17 02:41 Dose: 50 mg IV Flush (Picc Line Flush) 8 ml IVPUSH PRN PRN PRN Reason: Protocol Last Admin: 07/16/17 17:18 Dose: 8 ml Vancomycin HCl 1,000 mg/ (Dextrose) 250 mls @ 250 mls/hr IVPB BID@0100,1300 [facility] PRN Reason: Protocol Last Admin: 07/20/17 00:36 Dose: 250 mls/hr Cefepime HCl 2 gm/ Dextrose 100 mls @ 200 mls/hr IVPB Q8H-IV [facility] Last Admin: 07/20/17 02:15 Dose: 200 mls/hr Sodium Chloride (Normal Saline -) 1,000 mls @ 5 mls/hr IV ASDIR [facility] Last Admin: 07/19/17 09:49 Dose: Not Given Morphine Sulfate (Msir -) 15 mg PO Q4H PRN PRN Reason: PAIN LEVEL 7 - 10 Last Admin: 07/20/17 02:39 Dose: 15 mg Morphine Sulfate (Ms Contin -) 30 mg PO BID [facility] Last Admin: 07/19/17 22:23 Dose: 30 mg Nystatin (Nystop Powder -) 1 applic TP DAILY [facility] Last Admin: 07/19/17 12:50 Dose: 1 applic Pantoprazole Sodium (Protonix -) 40 mg PO BID [facility] Last Admin: 07/19/17 22:23 Dose: 40 mg Potassium Chloride (K-Dur -) 40 meq PO DAILY@0800 [facility] Last Admin: 07/19/17 09:48 Dose: 40 meq Quetiapine Fumarate (Seroquel -) 50 mg PO [facility] Last Admin: 07/19/17 22:27 Dose: 50 mg Topiramate (Topamax -) 25 mg PO [facility] Last Admin: 07/19/17 22:23 Dose: 25 mg - Objective Vital Signs: Vital Signs Temperature 97.6 F 07/20/17 06:58 Pulse Rate 71 07/20/17 06:58 Respiratory Rate 18 07/20/17 06:58 Blood Pressure 97/55 07/20/17 06:58 O2 Sat by Pulse Oximetry (%) 100 07/18/17 21:00 Constitutional: Yes: Well Nourished, No Distress, Calm Cardiovascular: Yes: Regular Rate and Rhythm Respiratory: Yes: Regular Gastrointestinal: Yes: WNL, Normal Bowel Sounds, Soft Genitourinary: Yes: WNL Musculoskeletal: Yes: WNL Extremities: Yes: WNL Edema: No Peripheral Pulses WNL: Yes Neurological: Yes: Alert, Oriented Psychiatric: Yes: Alert, Oriented Labs: CBC, BMP 07/10/17 13:25 07/10/17 13:25 Problem List - Problems (1) Chronic osteomyelitis Assessment/Plan: Left hip, states it has been draining for a while MRI left hip shows: Penetrating ulceration extending from the cutaneous soft tissues to the level of the left greater trochanter with diffuse surrounding inflammatory changes. Bone marrow edema involving the left greater trochanter is suggestive of focal osteomyelitis. No gross drainable collection noted. Avascular necrosis of the femoral heads noted bilaterally measuring approximately 7 mm. No subchondral collapse. Increased signal within the left femoral shaft could be related to increased red marrow signal. Fibroid uterus. -IV abx via PICC, -Seen by Vascular consult for wound care - She wants to be transferred to [facility] for further management, which is in process Code(s): M86.60 - OTHER CHRONIC OSTEOMYELITIS, UNSPECIFIED SITE (2) Lupus (systemic lupus erythematosus) Assessment/Plan: -Sees Dr Kong Laird at [facility] -has been on plaquenil for a while, methotrexate was discontinued due to intolerance. -left msg for Dr Byron Triana on her cell to call back, my cell number provided in the msg. Have not heard back from the attending. Code(s): M32.9 - SYSTEMIC LUPUS ERYTHEMATOSUS, UNSPECIFIED (3) Yeast infection Assessment/Plan: -refuses nystatin, would d/c added clotri/betamet cream BID -another round of flucanozole 100 mg po daily for 3 days Code(s): B37.9 - CANDIDIASIS, UNSPECIFIED Assessment/Plan see problem list Awaiting bed at [facility]
[2017-07-20] MEDS: HYDROXYCHLOROQUINE SO4 200 MG TABLET (FP) PO SCH (11:38)
[2017-07-20] MEDS: PANTOPRAZOLE 40 MG TABLET (FP) PO SCH ×2 (11:38→21:57)
[2017-07-20] MEDS: POTASSIUM CHLORIDE TABS 20 MEQ TABLET.ER (FP) PO SCH (11:39)
[2017-07-20] MEDS: morphine SO4 SUSTAINED ACTING 30 MG TABLET.SA PO SCH ×2 (11:39→21:56)
[2017-07-20] MEDS: CLOTRIMAZOLE/BETAMET DIPROP 15 GM TUBE TP SCH ×2 (11:40→21:56)
[2017-07-20] MEDS: SODIUM CHLORIDE 1,000 ML IV SCH (11:41)
[2017-07-20] MEDS: diazePAM 5 MG TABLET PO SCH ×2 (11:41→21:59)
[2017-07-20] MEDS: NYSTATIN POWDER 100,000 UNITS/GM - 15 GM TOPICAL POWDER TP SCH (11:41)
[2017-07-20] MEDS: diphenhydrAMINE HCL 25 MG CAPSULE (FP) PO PRN (12:08)
[2017-07-20] MEDS ORDERED: PT OWN MED DRAWER 7, Y5N ONE ×2 (13:46→17:09)
--- NOTE | 2017-07-20 15:41 | CONSULT ---
Consult Consult Specialty:: Rheumatology - History of Present Illness History of Present Illness: 46 year old female with a PMH of schizophrenia, SLE and a chronic left lateral aspect of pelvis ulcer [facility] line. Patient was receiving PO antibiotics while at [place] and denies any allergic or anaphylactic reaction. On admission an MRI reported with penetrating ulceration extending from cutaneous soft tissue at the level of the left grater trochanter with bone marrow edema suggestive of focal osteomyelitis. No gross drainable collection of fluid. Bilateral osteonecrosis with no subchondral collapse. It was recommended that she gets cefepime and Vancomycin for at least 6 weeks with the warning that this may not resolve her symptoms. She called in an outside patient advocacy agency, with whom she discussed and decided that she wants to be transferred to [facility] for a possible surgical intervention. HPI. Lupus. The patient reports she was diagnosed with Lupus in 2008. I spoke with the patients chemistry technologist (Dr. Triana). In the past she was treated by several rheumatologists. Apparently initially she had skin rash, hair loss, oral ulcers, Sicca syndrome and pleural and pericardial effusions. The last episode of serositis was probably in 2011. In the past she was found to have GONSALO 1:640 with nuclear pattern, anti-MANAGER OCCUPATIONAL >8 , anti-cardiolipin antibody IgM 30 an anti-NMO antibody with no evidence of optic neuritis or transverse myelitis. She also had low complement (C3: 63 and C4< 4). Her main problem has been inflammatory arthritis and apparently in the last few years she has not have other organ involvement. She has been treated with Prednisone, Methotrexate, Hydroxychloroquine, Mycophenolate, Benlysta, Rituximab, Cyclophosphamide, Actemra (discontinued after she developed andti-DNAds) and recently with Methotrexate, Hydroxychloroquine and Achtar. The patient was admitted to [facility] on March of 2010 after she was found to be unresponsive, probably related to the use of narcotics and had rhabdomyolysis. . Laboratory work-up at that time revealed a creatinine of 1.8 that decreased to 0.6, AST 73 , decreased to 27. ESR 39 and haptoglobin 194. CK was 956 that decreased to 735. EMG consistent with crytical illness myopathy. Anti-MANAGER OCCUPATIONAL was 7.3, GONSALO, anti-SSA, anti-SSB, anti-Sm and anti-DNAds were all negative. Complement normal (C3: 131, C4: 25) and CH50 : >65 (represents presence of acute phase reactant). Urinalysis was normal. Laboratory work-up from 06/30/17 revealed a CBC with a WBC of 6.2., Hgb13 and platelets 316. Creatinine of 1.0 and urinary sediment was normal. GONSALO, anti- DNAds, ANCA, myeloperoxidase, proteinase-3, anti-SSA, anti-SSB, anti-histone, CCP and rheumatoid factor were all normal. Complement was normal (C3: 138 and C4: 24). At the present time the patient reports intermittent arthralgia in hands that can be present at any time of the day and denies morning stiffness. She denies skin rash, oral ulcers, shortness of breath or chest pain. It is my impression that recently the patient has had inflammatory arthritis and there is no evidence of other organ involvement. She has not have kidney involvement. At this point it is not clear to me what was the indication for management with the different immunomodulators. 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 (SLE) ...LMP Comment: 06/15/17 Psych: Yes: Depression (questionable , denies suicidal ideation at present, or suicide attempt with prescribed medications, ) Rheumatology: Yes: Lupus - Alcohol/Substance Use Hx Alcohol Use: No (UNKNOWN) History of Substance Use: reports: Prescription - Smoking History Smoking history: Never smoked Have you smoked in the past 12 months: No - Social History Usual Living Arrangement: Alone Home Medications - Allergies Allergies/Adverse Reactions: Allergies Allergy/AdvReac Type Severity Reaction Status Date / Time methotrexate Allergy Unknown Vomiting Verified 03/12/17 18:53 metoclopramide HCl Allergy Unknown dystonia Verified 03/12/17 18:52 [From Reglan] - Home Medications Home Medications: Ambulatory Orders Docusate Sodium [Colace -] 100 mg PO HS #30 tab MDD 1 03/20/17 Pantoprazole Sodium [Protonix -] 40 mg PO BID #60 tab MDD 2 03/20/17 Aa/[place]/Arg/C/Zn/Cu [Lps Critical Care Liquid] 30 ml PO TID 07/05/17 Acetaminophen 650 mg PO PRN 07/05/17 Ammonium Lactate Cream [Lac-Hydrin 12% *Cream*] 1 applic TP BID 07/05/17 Ascorbate Calcium [Vitamin C] 500 mg PO DAILY 07/05/17 Bismuth Tribromoph/Petrolatum [Xeroform Petrolatum Dress] 1 each TP PRN Diazepam [Valium] 5 mg PO BID MDD 1 07/05/17 Folic Acid 3 mg PO DAILY 07/05/17 Furosemide [Lasix] 40 mg PO BID 07/05/17 Hydroxychloroquine Sulfate [Plaquenil] 400 mg PO DAILY 07/05/17 Ipratropium/Albuterol Sulfate [Iprat-Albut 0.5-3(2.5) mg/3 ml] 3 ml IH PRN 07/05 Morphine *Immediate Release* [Msir -] 15 mg PO Q4H PRN 07/05/17 Morphine *Sr* [Ms Contin -] 30 mg PO Q12H 07/05/17 Potassium Chloride 40 meq PO DAILY 07/05/17 Quetiapine Fumarate [Seroquel -] 50 mg PO HS 07/05/17 Topiramate 25 mg PO HS 07/05/17 Cefepime [Maxipime (Restricted To Id) -] 2 gm IVPB Q8H-IV vial 07/13/17 Diazepam [Valium] 5 mg PO BID #60 tablet MDD 2 07/13/17 Diphenhydramine HCl [Benadryl Capsule -] 25 mg PO Q6H PRN #120 capsule 07/13/17 Docusate Sodium [Colace -] 300 mg PO HS #30 capsule 07/13/17 Fluconazole [Diflucan -] 100 mg PO DAILY #1 tablet 07/13/17 Hydroxychloroquine So4 [Plaquenil -] 400 mg PO DAILY tablet 07/13/17 Morphine *Immediate Release* [Msir -] 15 mg PO Q4H PRN #180 tab MDD 6 07/13/17 Morphine *Sr* [MS Contin -] 30 mg PO BID #60 tablet.sa MDD 2 07/13/17 Mupirocin Cream [Bactroban 2% Cream -] 1 applic TP BID #1 tube 07/13/17 Pantoprazole Sodium [Protonix -] 40 mg PO BID tablet.ec 07/13/17 Potassium Chloride [K-Dur -] 40 meq PO DAILY@0800 #60 tablet.er 07/13/17 Quetiapine Fumarate [Seroquel -] 50 mg PO HS tablet 07/13/17 Topiramate [Topamax -] 25 mg PO HS tablet 07/13/17 Vancomycin 1,000 mg IVPB BID@0100,1300 vial 07/13/17 Review of Systems - Review of Systems Constitutional: reports: Malaise Eyes: reports: No Symptoms HENT: reports: No Symptoms Neck: reports: No Symptoms Cardiovascular: reports: No Symptoms Respiratory: reports: No Symptoms Gastrointestinal: reports: No Symptoms Integumentary: reports: Other (See HPI) Neurological: reports: No Symptoms Physical Exam Vital Signs: Vital Signs Temperature 98.9 F 07/20/17 15:19 Pulse Rate 77 07/20/17 15:19 Respiratory Rate 18 07/20/17 15:19 Blood Pressure 100/60 07/20/17 15:19 O2 Sat by Pulse Oximetry (%) 100 07/18/17 21:00 Constitutional: Yes: Mild Distress Eyes: Yes: WNL HENT: Yes: WNL Neck: Yes: WNL Cardiovascular: Yes: WNL Respiratory: Yes: WNL Gastrointestinal: Yes: WNL Musculoskeletal: Yes: Other (No active joints. tendeerness in 09/22 fibrositic tender points.) Labs: CBC, BMP 07/10/17 13:25 07/10/17 13:25 Laboratory Tests 07/10/17 07/10/17 13:25 13:25 ESR 31 H Total Bilirubin 0.3 D AST 20 ALT 11 L Alkaline Phosphatase 56 C-Reactive Protein 1.5 H Total Protein 6.7 Albumin 3.2 L Problem List - Problems (1) Lupus (systemic lupus erythematosus) Assessment/Plan: Patient admitted with osteomyelitis of the left lateral trochanter. She has history of lupus treated in the past with multiple immunomodulators and at the present time on Methotrexate, Hydorxychloroquine and Achtar. The lupus is not active. Once the present problem resolves, she should continue management with her chemistry technologist (Dr. Triana) Cody Ruelas MD Code(s): M32.9 - SYSTEMIC LUPUS ERYTHEMATOSUS, UNSPECIFIED
[2017-07-20] MEDS ORDERED: QUEtiapine FUMARATE 25 MG TABLET (FP) ONE (21:43)
[2017-07-20] MEDS: DOCUSATE SODIUM 100 MG CAPSULE (FP) PO SCH (21:55)
[2017-07-20] MEDS: TOPIRAMATE 25 MG TABLET (FP) PO SCH (21:59)
[2017-07-20] MEDS: QUEtiapine FUMARATE 50 MG TABLET PO SCH (21:59)
[2017-07-21] MEDS: VANCOMYCIN 1,000 MG in DEXTROSE 5%-WATER - 250 ML IVPB SCH ×2 (00:41→13:51)
[2017-07-21] MEDS: CEFEPIME 2 GM in DEXTROSE 5%-WATER - 100 ML IVPB SCH ×3 (02:48→17:12)
[2017-07-21] MEDS: morphine SULFATE IMMEDIATE RELEASE 30 MG TAB PO PRN (07:03)
[2017-07-21] MEDS: diphenhydrAMINE HCL 25 MG CAPSULE (FP) PO PRN ×2 (07:09→16:27)
[2017-07-21] MEDS: POTASSIUM CHLORIDE TABS 20 MEQ TABLET.ER (FP) PO SCH (08:51)
[2017-07-21] MEDS ORDERED: PT OWN MED DRAWER 7, Y5N ONE ×3 (10:29→17:09)
--- NOTE | 2017-07-21 10:29 | PN ---
Progress Note, Physician - Current Medication List Current Medications: Active Medications Clotrimazole (Lotrisone Cream (Small Tube)) 1 applic TP BID [facility] Last Admin: 07/20/17 21:56 Dose: 1 applic Diazepam (Valium -) 5 mg PO BID [facility] Last Admin: 07/20/17 21:59 Dose: 5 mg Diphenhydramine HCl (Benadryl -) 50 mg PO Q6H PRN PRN Reason: FOR ITCHING Last Admin: 07/21/17 07:09 Dose: 50 mg Docusate Sodium (Colace -) 300 mg PO HS [facility] Last Admin: 07/20/17 21:55 Dose: 300 mg Hydroxychloroquine Sulfate (Plaquenil -) 400 mg PO DAILY [facility] Last Admin: 07/20/17 11:38 Dose: 400 mg Hydroxyzine HCl (Atarax -) 50 mg PO TID PRN PRN Reason: FOR ITCHING Last Admin: 07/20/17 21:57 Dose: 50 mg IV Flush (Picc Line Flush) 8 ml IVPUSH PRN PRN PRN Reason: Protocol Last Admin: 07/16/17 17:18 Dose: 8 ml Vancomycin HCl 1,000 mg/ (Dextrose) 250 mls @ 250 mls/hr IVPB BID@0100,1300 MOI PRN Reason: Protocol Last Admin: 07/21/17 00:41 Dose: 250 mls/hr Cefepime HCl 2 gm/ Dextrose 100 mls @ 200 mls/hr IVPB Q8H-IV [facility] Last Admin: 07/21/17 02:48 Dose: 200 mls/hr Sodium Chloride (Normal Saline -) 1,000 mls @ 5 mls/hr IV ASDIR [facility] Last Admin: 07/20/17 11:41 Dose: Not Given Morphine Sulfate (Msir -) 15 mg PO Q4H PRN PRN Reason: PAIN LEVEL 7 - 10 Last Admin: 07/21/17 07:03 Dose: 15 mg Morphine Sulfate (Ms Contin -) 30 mg PO BID [facility] Last Admin: 07/20/17 21:56 Dose: 30 mg Nystatin (Nystop Powder -) 1 applic TP DAILY [facility] Last Admin: 07/20/17 11:41 Dose: 1 applic Pantoprazole Sodium (Protonix -) 40 mg PO BID [facility] Last Admin: 07/20/17 21:57 Dose: 40 mg Potassium Chloride (K-Dur -) 40 meq PO DAILY@0800 [facility] Last Admin: 07/21/17 08:51 Dose: 40 meq Quetiapine Fumarate (Seroquel -) 50 mg PO [facility] Last Admin: 07/20/17 21:59 Dose: 50 mg Topiramate (Topamax -) 25 mg PO [facility] Last Admin: 07/20/17 21:59 Dose: 25 mg - Objective Vital Signs: Vital Signs Temperature 98 F 07/21/17 10:00 Pulse Rate 60 07/21/17 10:00 Respiratory Rate 20 07/21/17 10:00 Blood Pressure 107/64 07/21/17 10:00 O2 Sat by Pulse Oximetry (%) 100 07/18/17 21:00 Cardiovascular: Yes: S1, S2 Respiratory: Yes: Regular, CTA Bilaterally Gastrointestinal: Yes: Normal Bowel Sounds, Soft Labs: CBC, BMP 07/10/17 13:25 07/10/17 13:25 Assessment/Plan Problems (1) Chronic osteomyelitis Assessment/Plan: Left hip, states it has been draining for a while MRI left hip shows: Penetrating ulceration extending from the cutaneous soft tissues to the level of the left greater trochanter with diffuse surrounding inflammatory changes. Bone marrow edema involving the left greater trochanter is suggestive of focal osteomyelitis. No gross drainable collection noted. Avascular necrosis of the femoral heads noted bilaterally measuring approximately 7 mm. No subchondral collapse. Increased signal within the left femoral shaft could be related to increased red marrow signal. Fibroid uterus. -IV abx via PICC, -Seen by Vascular consult for wound care - She wants to be transferred to [facility] for further management, which is in process Code(s): M86.60 - OTHER CHRONIC OSTEOMYELITIS, UNSPECIFIED SITE (2) Lupus (systemic lupus erythematosus) Assessment/Plan: -Sees Dr Kong Laird at [facility] -has been on plaquenil for a while, methotrexate was discontinued due to intolerance. -left msg for Dr Byron Triana on her cell to call back, my cell number provided in the msg. Code(s): M32.9 - SYSTEMIC LUPUS ERYTHEMATOSUS, UNSPECIFIED (3) Yeast infection Assessment/Plan: -refuses nystatin, would d/c added clotri/betamet cream BID -another round of flucanozole 100 mg po daily for 3 days Code(s): B37.9 - CANDIDIASIS, UNSPECIFIED
[2017-07-21] MEDS: morphine SO4 SUSTAINED ACTING 30 MG TABLET.SA PO SCH ×2 (10:34→21:41)
[2017-07-21] MEDS: HYDROXYCHLOROQUINE SO4 200 MG TABLET (FP) PO SCH (10:35)
[2017-07-21] MEDS: diazePAM 5 MG TABLET PO SCH ×2 (10:35→21:42)
[2017-07-21] MEDS: PANTOPRAZOLE 40 MG TABLET (FP) PO SCH ×2 (10:35→21:42)
[2017-07-21] MEDS: SODIUM CHLORIDE 1,000 ML IV SCH (10:36)
[2017-07-21] MEDS: CLOTRIMAZOLE/BETAMET DIPROP 15 GM TUBE TP SCH ×2 (10:36→22:30)
[2017-07-21] MEDS: NYSTATIN POWDER 100,000 UNITS/GM - 15 GM TOPICAL POWDER TP SCH (10:37)
[2017-07-21] MEDS: hydrOXYzine HCL 25 MG TABLET (FP) PO PRN ×2 (15:06→21:43)
[2017-07-21] MEDS: QUEtiapine FUMARATE 50 MG TABLET PO SCH (21:42)
[2017-07-21] MEDS: TOPIRAMATE 25 MG TABLET (FP) PO SCH (21:42)
[2017-07-21] MEDS: DOCUSATE SODIUM 100 MG CAPSULE (FP) PO SCH (22:30)
[2017-07-22] MEDS: VANCOMYCIN 1,000 MG in DEXTROSE 5%-WATER - 250 ML IVPB SCH ×2 (00:20→12:01)
[2017-07-22] MEDS: CEFEPIME 2 GM in DEXTROSE 5%-WATER - 100 ML IVPB SCH ×3 (01:44→17:53)
[2017-07-22] MEDS: morphine SULFATE IMMEDIATE RELEASE 30 MG TAB PO PRN (02:33)
[2017-07-22] MEDS: diphenhydrAMINE HCL 25 MG CAPSULE (FP) PO PRN ×2 (02:34→18:03)
[2017-07-22] MEDS: POTASSIUM CHLORIDE TABS 20 MEQ TABLET.ER (FP) PO SCH (08:52)
--- NOTE | 2017-07-22 09:51 | PN ---
Progress Note, Physician Chief Complaint: left hip osteomyelitis History of Present Illness: NAD, in bed has PICC line IV abx awaiting bed at [facility], Accepted by Dr Shelton - Current Medication List Current Medications: Active Medications Clotrimazole (Lotrisone Cream (Small Tube)) 1 applic TP BID [facility] Last Admin: 07/21/17 22:30 Dose: Not Given Diazepam (Valium -) 5 mg PO BID [facility] Last Admin: 07/21/17 21:42 Dose: 5 mg Diphenhydramine HCl (Benadryl -) 50 mg PO Q6H PRN PRN Reason: FOR ITCHING Last Admin: 07/22/17 02:34 Dose: 50 mg Docusate Sodium (Colace -) 300 mg PO HS [facility] Last Admin: 07/21/17 22:30 Dose: Not Given Hydroxychloroquine Sulfate (Plaquenil -) 400 mg PO DAILY [facility] Last Admin: 07/21/17 10:35 Dose: 400 mg Hydroxyzine HCl (Atarax -) 50 mg PO TID PRN PRN Reason: FOR ITCHING Last Admin: 07/21/17 21:43 Dose: 50 mg IV Flush (Picc Line Flush) 8 ml IVPUSH PRN PRN PRN Reason: Protocol Last Admin: 07/16/17 17:18 Dose: 8 ml Vancomycin HCl 1,000 mg/ (Dextrose) 250 mls @ 250 mls/hr IVPB BID@0100,1300 MOI PRN Reason: Protocol Last Admin: 07/22/17 00:20 Dose: 250 mls/hr Cefepime HCl 2 gm/ Dextrose 100 mls @ 200 mls/hr IVPB Q8H-IV [facility] Last Admin: 07/22/17 01:44 Dose: 200 mls/hr Sodium Chloride (Normal Saline -) 1,000 mls @ 5 mls/hr IV ASDIR [facility] Last Admin: 07/21/17 10:36 Dose: 5 mls/hr Morphine Sulfate (Msir -) 15 mg PO Q4H PRN PRN Reason: PAIN LEVEL 7 - 10 Last Admin: 07/22/17 02:33 Dose: 15 mg Morphine Sulfate (Ms Contin -) 30 mg PO BID [facility] Last Admin: 07/21/17 21:41 Dose: 30 mg Nystatin (Nystop Powder -) 1 applic TP DAILY [facility] Last Admin: 07/21/17 10:37 Dose: 1 applic Pantoprazole Sodium (Protonix -) 40 mg PO BID [facility] Last Admin: 07/21/17 21:42 Dose: 40 mg Potassium Chloride (K-Dur -) 40 meq PO DAILY@0800 [facility] Last Admin: 07/22/17 08:52 Dose: 40 meq Quetiapine Fumarate (Seroquel -) 50 mg PO HS [facility] Last Admin: 07/21/17 21:42 Dose: 50 mg Topiramate (Topamax -) 25 mg PO HS [facility] Last Admin: 07/21/17 21:42 Dose: 25 mg - Objective Vital Signs: Vital Signs Temperature 98.2 F 07/22/17 06:00 Pulse Rate 71 07/22/17 06:00 Respiratory Rate 20 07/22/17 06:00 Blood Pressure 90/52 07/22/17 06:00 O2 Sat by Pulse Oximetry (%) 97 07/21/17 21:00 Constitutional: Yes: Well Nourished, No Distress, Calm Cardiovascular: Yes: Regular Rate and Rhythm Respiratory: Yes: Regular Gastrointestinal: Yes: Normal Bowel Sounds Musculoskeletal: Yes: WNL Extremities: Yes: WNL Edema: No Peripheral Pulses WNL: Yes Neurological: Yes: Alert, Oriented Psychiatric: Yes: Alert, Oriented Labs: CBC, BMP 07/10/17 13:25 07/10/17 13:25 Problem List - Problems (1) Chronic osteomyelitis Assessment/Plan: Left hip, states it has been draining for a while MRI left hip shows: Penetrating ulceration extending from the cutaneous soft tissues to the level of the left greater trochanter with diffuse surrounding inflammatory changes. Bone marrow edema involving the left greater trochanter is suggestive of focal osteomyelitis. No gross drainable collection noted. Avascular necrosis of the femoral heads noted bilaterally measuring approximately 7 mm. No subchondral collapse. Increased signal within the left femoral shaft could be related to increased red marrow signal. Fibroid uterus. -IV abx via PICC, -awaiting bed at [facility] Code(s): M86.60 - OTHER CHRONIC OSTEOMYELITIS, UNSPECIFIED SITE (2) Lupus (systemic lupus erythematosus) Assessment/Plan: -Sees Dr Kong Laird at [facility] -has been on plaquenil for a while, methotrexate was discontinued due to intolerance. -Seen by rheumatology here Code(s): M32.9 - SYSTEMIC LUPUS ERYTHEMATOSUS, UNSPECIFIED (3) Yeast infection Assessment/Plan: Clotrimazole/beta -diflucan Code(s): B37.9 - CANDIDIASIS, UNSPECIFIED Assessment/Plan see problem list awaiting bed at [facility]
[2017-07-22] MEDS ORDERED: PT OWN MED DRAWER 7, Y5N ONE ×3 (10:29→17:51)
[2017-07-22] MEDS: morphine SO4 SUSTAINED ACTING 30 MG TABLET.SA PO SCH ×2 (10:32→22:03)
[2017-07-22] MEDS: CLOTRIMAZOLE/BETAMET DIPROP 15 GM TUBE TP SCH ×2 (10:32→22:13)
[2017-07-22] MEDS: PANTOPRAZOLE 40 MG TABLET (FP) PO SCH ×2 (10:33→22:03)
[2017-07-22] MEDS: diazePAM 5 MG TABLET PO SCH ×2 (10:33→22:03)
[2017-07-22] MEDS: NYSTATIN POWDER 100,000 UNITS/GM - 15 GM TOPICAL POWDER TP SCH (10:33)
[2017-07-22] MEDS: HYDROXYCHLOROQUINE SO4 200 MG TABLET (FP) PO SCH (10:33)
[2017-07-22] MEDS: SODIUM CHLORIDE 1,000 ML IV SCH (10:33)
[2017-07-22] MEDS: hydrOXYzine HCL 25 MG TABLET (FP) PO PRN ×2 (10:43→22:11)
[2017-07-22] MEDS ORDERED: QUEtiapine FUMARATE 25 MG TABLET (FP) ONE (21:35)
[2017-07-22] MEDS: QUEtiapine FUMARATE 50 MG TABLET PO SCH (22:03)
[2017-07-22] MEDS: TOPIRAMATE 25 MG TABLET (FP) PO SCH (22:03)
[2017-07-22] MEDS: DOCUSATE SODIUM 100 MG CAPSULE (FP) PO SCH (22:03)
[2017-07-23] MEDS: VANCOMYCIN 1,000 MG in DEXTROSE 5%-WATER - 250 ML IVPB SCH ×2 (00:43→15:44)
[2017-07-23] MEDS: CEFEPIME 2 GM in DEXTROSE 5%-WATER - 100 ML IVPB SCH ×3 (01:34→18:58)
[2017-07-23] MEDS: morphine SULFATE IMMEDIATE RELEASE 30 MG TAB PO PRN ×2 (04:10→15:53)
[2017-07-23] MEDS: diphenhydrAMINE HCL 25 MG CAPSULE (FP) PO PRN ×2 (04:12→19:01)
[2017-07-23 07:51] LABS: EOS % 6.2 % (0-4.5); HEMATOCRIT 30.5 % (32.4-45.2); HEMOGLOBIN 9.4 GM/dL (10.7-15.3); LYMPH % 31.2 % (8-40); MCH 20.7 pg (25.7-33.7); MCHC 30.7 g/dl (32.0-36.0); MEAN CELL VOLUME 67.6 fl (80-96); MEAN PLT VOLUME 9.5 fl (7.5-11.1); MONO % 20.8 % (3.8-10.2); NEUT % 39.8 % (42.8-82.8); PLATELET COUNT 184 K/MM3 (134-434); RBC 4.51 M/mm3 (3.60-5.2); RDW 20.4 % (11.6-15.6); WHITE BLOOD COUNT 3.3 K/mm3 (4.0-10.0)
[2017-07-23 07:53] LABS: ADD RBC MORPHOLOGY YES
[2017-07-23 08:21] LABS: ANION GAP 6 (8-16); BLOOD UREA NITROGEN 10 mg/dL (7-18); CALCIUM 9.2 mg/dL (8.5-10.1); CHLORIDE 109 mmol/L (98-107); CO2 26 mmol/L (21-32); CREATININE 0.9 mg/dL (0.55-1.02); GLUCOSE,RANDOM 83 mg/dL (74-106); POTASSIUM 4.1 mmol/L (3.5-5.1); SGOT/AST 18 U/L (15-37); SGPT/ALT 10 U/L (12-78); SODIUM 141 mmol/L (136-145)
[2017-07-23 08:23] LABS: ALK PHOS 54 U/L (45-117); BILIRUBIN,TOTAL 0.4 mg/dL (0.2-1.0); TOT PROT 6.7 g/dl (6.4-8.2)
[2017-07-23 10:22] LABS: ANISOCYTOSIS 2+; MACROCYTOSIS 1+; OVALOCYTE 2+; TEAR DROP CELLS 1+
--- NOTE | 2017-07-23 11:11 | PN ---
Progress Note, Physician Chief Complaint: left hip osteomyelitis History of Present Illness: NAD, in bed has PICC line IV abx Declined by [facility] over the weekend. Pt called [facility] center this morning and was told, that someone from [facility] called them and told them that pt doesn't need surgical intervention for her osteomyelitis and all she needs is Wound care and IV abx. The first day I spoke to Dr Shelton, it was clearly mentioned that patient wants to transfer to [facility] because she prefers to have surgical intervention needed for her osteomyelitis at [facility] instead of [facility]. I spoke to Dr Shelton today again, and was told there was some mis- communication. He has been aware that patient needs surgical debridement, but he is not willing to accept the patient as the procedure can be done at [facility]. He expressed that he also spoke to Dr Triana who is patient's pole peeling machine operator who was in agreement because patient doesn't have any symptoms of acute exacerbation of Lupus and was evaluated by pole peeling machine operator at [facility]. 1500: Patient states that she spoke to Dr Triana over the weekend, who mentioned that she wants the patient to be transferred to [facility]. She is afraid that stress of the surgery may flare up her lupus. 1800: Spoke to Dr Triana, who mentioned, she has not spoken to the patient since over 1 week ago. She has been treating patient outpatient for Lupus but pt hasn't had an active lupus in a long time. Dr Triana also mentioned that she had to bring patient in her clinic on weekly basis at one point because patient overdosed on methotrexate by giving herself more than directed dose. At this point, she doesn't think patient needs to be at [facility] and she is not worried about patient's Lupus flaring up. Would communicate this to the patient. - Current Medication List Current Medications: Active Medications Clotrimazole (Lotrisone Cream (Small Tube)) 1 applic TP BID [facility] Last Admin: 07/22/17 22:13 Dose: 1 applic Diazepam (Valium -) 5 mg PO BID [facility] Last Admin: 07/22/17 22:03 Dose: 5 mg Diphenhydramine HCl (Benadryl -) 50 mg PO Q6H PRN PRN Reason: FOR ITCHING Last Admin: 07/23/17 04:12 Dose: 50 mg Docusate Sodium (Colace -) 300 mg PO HS [facility] Last Admin: 07/22/17 22:03 Dose: Not Given Hydroxychloroquine Sulfate (Plaquenil -) 400 mg PO DAILY [facility] Last Admin: 07/22/17 10:33 Dose: 400 mg Hydroxyzine HCl (Atarax -) 50 mg PO TID PRN PRN Reason: FOR ITCHING Last Admin: 07/22/17 22:11 Dose: 50 mg IV Flush (Picc Line Flush) 8 ml IVPUSH PRN PRN PRN Reason: Protocol Last Admin: 07/16/17 17:18 Dose: 8 ml Vancomycin HCl 1,000 mg/ (Dextrose) 250 mls @ 250 mls/hr IVPB BID@0100,1300 MOI PRN Reason: Protocol Last Admin: 07/23/17 00:43 Dose: 250 mls/hr Cefepime HCl 2 gm/ Dextrose 100 mls @ 200 mls/hr IVPB Q8H-IV [facility] Last Admin: 07/23/17 01:34 Dose: 200 mls/hr Sodium Chloride (Normal Saline -) 1,000 mls @ 5 mls/hr IV ASDIR [facility] Last Admin: 07/22/17 10:33 Dose: Not Given Morphine Sulfate (Msir -) 15 mg PO Q4H PRN PRN Reason: PAIN LEVEL 7 - 10 Last Admin: 07/23/17 04:10 Dose: 15 mg Morphine Sulfate (Ms Contin -) 30 mg PO BID [facility] Last Admin: 07/22/17 22:03 Dose: 30 mg Nystatin (Nystop Powder -) 1 applic TP DAILY [facility] Last Admin: 07/22/17 10:33 Dose: 1 applic Pantoprazole Sodium (Protonix -) 40 mg PO BID [facility] Last Admin: 07/22/17 22:03 Dose: 40 mg Potassium Chloride (K-Dur -) 40 meq PO DAILY@0800 [facility] Last Admin: 07/22/17 08:52 Dose: 40 meq Quetiapine Fumarate (Seroquel -) 50 mg PO HS [facility] Last Admin: 07/22/17 22:03 Dose: 50 mg Topiramate (Topamax -) 25 mg PO HS [facility] Last Admin: 07/22/17 22:03 Dose: 25 mg - Objective Vital Signs: Vital Signs Temperature 98.2 F 07/23/17 06:18 Pulse Rate 80 07/23/17 06:18 Respiratory Rate 20 07/23/17 06:18 Blood Pressure 105/64 07/23/17 06:18 O2 Sat by Pulse Oximetry (%) 98 07/22/17 21:00 Constitutional: Yes: Well Nourished, No Distress, Calm Cardiovascular: Yes: Regular Rate and Rhythm Respiratory: Yes: Regular Edema: No Peripheral Pulses WNL: Yes Wound/Incision: Yes: Dressing Dry and Intact Neurological: Yes: Alert Psychiatric: Yes: Alert, Oriented Labs: CBC, BMP 07/23/17 06:10 07/23/17 06:10 Problem List - Problems (1) Chronic osteomyelitis Assessment/Plan: Left hip, states it has been draining for a while MRI left hip shows: Penetrating ulceration extending from the cutaneous soft tissues to the level of the left greater trochanter with diffuse surrounding inflammatory changes. Bone marrow edema involving the left greater trochanter is suggestive of focal osteomyelitis. No gross drainable collection noted. Avascular necrosis of the femoral heads noted bilaterally measuring approximately 7 mm. No subchondral collapse. Increased signal within the left femoral shaft could be related to increased red marrow signal. Fibroid uterus. -IV abx via PICC, -awaiting safe discharge plan either home or SNF. Code(s): M86.60 - OTHER CHRONIC OSTEOMYELITIS, UNSPECIFIED SITE (2) Lupus (systemic lupus erythematosus) Assessment/Plan: -Sees Dr Kong Laird at [facility] -has been on plaquenil for a while, methotrexate was discontinued due to intolerance. -Seen by rheumatology here Code(s): M32.9 - SYSTEMIC LUPUS ERYTHEMATOSUS, UNSPECIFIED (3) Yeast infection Assessment/Plan: Clotrimazole/beta Code(s): B37.9 - CANDIDIASIS, UNSPECIFIED Assessment/Plan see problem list
[2017-07-23] MEDS ORDERED: PT OWN MED DRAWER 7, Y5N ONE ×2 (11:38→18:50)
[2017-07-23] MEDS: morphine SO4 SUSTAINED ACTING 30 MG TABLET.SA PO SCH ×2 (11:46→22:05)
[2017-07-23] MEDS: PANTOPRAZOLE 40 MG TABLET (FP) PO SCH ×2 (11:46→22:05)
[2017-07-23] MEDS: SODIUM CHLORIDE 1,000 ML IV SCH (11:47)
[2017-07-23] MEDS: diazePAM 5 MG TABLET PO SCH ×2 (11:47→22:07)
[2017-07-23] MEDS: POTASSIUM CHLORIDE TABS 20 MEQ TABLET.ER (FP) PO SCH (11:48)
[2017-07-23] MEDS: HYDROXYCHLOROQUINE SO4 200 MG TABLET (FP) PO SCH (13:46)
[2017-07-23] MEDS: NYSTATIN POWDER 100,000 UNITS/GM - 15 GM TOPICAL POWDER TP SCH (15:46)
[2017-07-23] MEDS: CLOTRIMAZOLE/BETAMET DIPROP 15 GM TUBE TP SCH ×2 (15:46→22:07)
[2017-07-23] MEDS: hydrOXYzine HCL 25 MG TABLET (FP) PO PRN (15:54)
[2017-07-23] MEDS ORDERED: QUEtiapine FUMARATE 25 MG TABLET (FP) ONE (21:53)
[2017-07-23] MEDS: DOCUSATE SODIUM 100 MG CAPSULE (FP) PO SCH (22:04)
[2017-07-23] MEDS: QUEtiapine FUMARATE 50 MG TABLET PO SCH (22:06)
[2017-07-23] MEDS: TOPIRAMATE 25 MG TABLET (FP) PO SCH (22:07)
[2017-07-24] MEDS: VANCOMYCIN 1,000 MG in DEXTROSE 5%-WATER - 250 ML IVPB SCH ×2 (01:06→14:22)
[2017-07-24] MEDS: CEFEPIME 2 GM in DEXTROSE 5%-WATER - 100 ML IVPB SCH ×3 (02:04→17:58)
[2017-07-24] MEDS: morphine SULFATE IMMEDIATE RELEASE 30 MG TAB PO PRN ×2 (05:22→14:29)
[2017-07-24] MEDS: hydrOXYzine HCL 25 MG TABLET (FP) PO PRN ×3 (05:23→22:11)
--- NOTE | 2017-07-24 10:34 | PN ---
Progress Note, Physician Chief Complaint: left hip osteomyelitis History of Present Illness: NAD, in bed has PICC line IV abx Declined by [facility] over the weekend. 07/23/17 Pt called [facility] this morning and was told, that someone from [facility] called them and told them that pt doesn't need surgical intervention for her osteomyelitis and all she needs is Wound care and IV abx. The first day I spoke to Dr Shelton, it was clearly mentioned that patient wants to transfer to [facility] because she prefers to have surgical intervention needed for her osteomyelitis at [facility] instead of [facility]. I spoke to Dr Shelton today again, and was told there was some mis- communication. He has been aware that patient needs surgical debridement, but he is not willing to accept the patient as the procedure can be done at [facility]. He expressed that he also spoke to Dr Triana who is patient's computer support specialist who was in agreement because patient doesn't have any symptoms of acute exacerbation of Lupus and was evaluated by computer support specialist at [facility]. 1500: Patient states that she spoke to Dr Triana over the weekend, who mentioned that she wants the patient to be transferred to [facility]. She is afraid that stress of the surgery may flare up her lupus. 1800: Spoke to Dr Triana, who mentioned, she has not spoken to the patient since over 1 week ago. She has been treating patient outpatient for Lupus but pt hasn't had an active lupus in a long time. Dr Triana also mentioned that she had to bring patient in her clinic on weekly basis at one point because patient overdosed on methotrexate by giving herself more than directed dose. At this point, she doesn't think patient needs to be at [facility] and she is not worried about patient's Lupus flaring up. Would communicate this to the patient. 07/24/17 Spoke to patient in presence of HALLIE Orantes. Informed patient that I spoke to Dr Triana and she doesn't think patient needs to be at [facility] because her Lupus is controlled, upon which patient expressed that it is not possible that I would 've spoken to Dr Triana because pt was informed that Dr Triana is away [place] the [place]. I personally made an attempt to call Dr Triana on her cell which went to [email or web address], left message to call back. Pt expressed that she will find another PCP at [facility]. I informed patient, she may find another accepting PCP at [facility]. Once accepted, there would be no problem transferring her to [facility]. - Current Medication List Current Medications: Active Medications Clotrimazole (Lotrisone Cream (Small Tube)) 1 applic TP BID [facility] Last Admin: 07/23/17 22:07 Dose: 1 applic Diazepam (Valium -) 5 mg PO BID [facility] Last Admin: 07/23/17 22:07 Dose: 5 mg Diphenhydramine HCl (Benadryl -) 50 mg PO Q6H PRN PRN Reason: FOR ITCHING Last Admin: 07/23/17 19:01 Dose: 50 mg Docusate Sodium (Colace -) 300 mg PO HS [facility] Last Admin: 07/23/17 22:04 Dose: Not Given Hydroxychloroquine Sulfate (Plaquenil -) 400 mg PO DAILY [facility] Last Admin: 07/23/17 13:46 Dose: 400 mg Hydroxyzine HCl (Atarax -) 50 mg PO TID PRN PRN Reason: FOR ITCHING Last Admin: 07/24/17 05:23 Dose: 50 mg IV Flush (Picc Line Flush) 8 ml IVPUSH PRN PRN PRN Reason: Protocol Last Admin: 07/16/17 17:18 Dose: 8 ml Vancomycin HCl 1,000 mg/ (Dextrose) 250 mls @ 250 mls/hr IVPB BID@0100,1300 MOI PRN Reason: Protocol Last Admin: 07/24/17 01:06 Dose: 250 mls/hr Cefepime HCl 2 gm/ Dextrose 100 mls @ 200 mls/hr IVPB Q8H-IV [facility] Last Admin: 07/24/17 02:04 Dose: 200 mls/hr Sodium Chloride (Normal Saline -) 1,000 mls @ 5 mls/hr IV ASDIR [facility] Last Admin: 07/23/17 11:47 Dose: Not Given Morphine Sulfate (Msir -) 15 mg PO Q4H PRN PRN Reason: PAIN LEVEL 7 - 10 Last Admin: 07/24/17 05:22 Dose: 15 mg Morphine Sulfate (Ms Contin -) 30 mg PO BID [facility] Last Admin: 07/23/17 22:05 Dose: 30 mg Nystatin (Nystop Powder -) 1 applic TP DAILY [facility] Last Admin: 07/23/17 15:46 Dose: 1 applic Pantoprazole Sodium (Protonix -) 40 mg PO BID [facility] Last Admin: 07/23/17 22:05 Dose: 40 mg Potassium Chloride (K-Dur -) 40 meq PO DAILY@0800 [facility] Last Admin: 07/23/17 11:48 Dose: 40 meq Quetiapine Fumarate (Seroquel -) 50 mg PO [facility] Last Admin: 07/23/17 22:06 Dose: 50 mg Topiramate (Topamax -) 25 mg PO [facility] Last Admin: 07/23/17 22:07 Dose: 25 mg - Objective Vital Signs: Vital Signs Temperature 98.1 F 07/24/17 07:35 Pulse Rate 66 07/24/17 07:35 Respiratory Rate 20 07/24/17 07:35 Blood Pressure 96/62 07/24/17 07:35 O2 Sat by Pulse Oximetry (%) 98 07/23/17 21:00 Constitutional: Yes: Well Nourished, No Distress, Calm Cardiovascular: Yes: Regular Rate and Rhythm Respiratory: Yes: Regular Gastrointestinal: Yes: Normal Bowel Sounds, Soft Musculoskeletal: Yes: WNL Extremities: Yes: WNL Edema: No Peripheral Pulses WNL: Yes Wound/Incision: Yes: Dressing Dry and Intact Neurological: Yes: Alert, Oriented Psychiatric: Yes: Alert, Oriented Labs: CBC, BMP 07/23/17 06:10 07/23/17 06:10 Problem List - Problems (1) Chronic osteomyelitis Assessment/Plan: Left hip, states it has been draining for a while MRI left hip shows: Penetrating ulceration extending from the cutaneous soft tissues to the level of the left greater trochanter with diffuse surrounding inflammatory changes. Bone marrow edema involving the left greater trochanter is suggestive of focal osteomyelitis. No gross drainable collection noted. Avascular necrosis of the femoral heads noted bilaterally measuring approximately 7 mm. No subchondral collapse. Increased signal within the left femoral shaft could be related to increased red marrow signal. Fibroid uterus. -IV abx via PICC, -awaiting safe discharge plan either home or SNF. Code(s): M86.60 - OTHER CHRONIC OSTEOMYELITIS, UNSPECIFIED SITE (2) Lupus (systemic lupus erythematosus) Assessment/Plan: -Sees Dr Kogn Laird at [facility] -has been on plaquenil for a while, methotrexate was discontinued due to intolerance. -Seen by rheumatology here Code(s): M32.9 - SYSTEMIC LUPUS ERYTHEMATOSUS, UNSPECIFIED (3) Yeast infection Assessment/Plan: Clotrimazole/beta Code(s): B37.9 - CANDIDIASIS, UNSPECIFIED Assessment/Plan see problem list
[2017-07-24] MEDS ORDERED: PT OWN MED DRAWER 7, Y5N ONE ×2 (10:38→17:46)
[2017-07-24] MEDS: morphine SO4 SUSTAINED ACTING 30 MG TABLET.SA PO SCH ×2 (10:50→22:10)
[2017-07-24] MEDS: HYDROXYCHLOROQUINE SO4 200 MG TABLET (FP) PO SCH (10:51)
[2017-07-24] MEDS: PANTOPRAZOLE 40 MG TABLET (FP) PO SCH ×2 (10:51→22:09)
[2017-07-24] MEDS: diazePAM 5 MG TABLET PO SCH ×2 (10:51→22:09)
[2017-07-24] MEDS: POTASSIUM CHLORIDE TABS 20 MEQ TABLET.ER (FP) PO SCH (10:51)
[2017-07-24] MEDS: SODIUM CHLORIDE 1,000 ML IV SCH (10:52)
[2017-07-24] MEDS: CLOTRIMAZOLE/BETAMET DIPROP 15 GM TUBE TP SCH ×2 (10:54→22:13)
[2017-07-24] MEDS: NYSTATIN POWDER 100,000 UNITS/GM - 15 GM TOPICAL POWDER TP SCH (10:54)
--- NOTE | 2017-07-24 11:59 | CON.PSY ---
Psychiatry Consult Chief Complaint: I am not Schizophrenic, I dont have a Psychiatrist, I had a reaction to Too much prednisone that made me ? Psychotic, thats why they put me on SERoquel. take Valium from my medical MD for Anxiety from Prednisone. Symptoms: reports: Anxiety - Previous Psychiatric Treatment Outpatient: None Inpatient: None - Previous Substance Abuse Treatment Outpatient: None Inpatient: None - Current Medications Current Medications: Active Medications Clotrimazole (Lotrisone Cream (Small Tube)) 1 applic TP BID [facility] Last Admin: 07/24/17 10:54 Dose: 1 applic Diazepam (Valium -) 5 mg PO BID [facility] Last Admin: 07/24/17 10:51 Dose: 5 mg Diphenhydramine HCl (Benadryl -) 50 mg PO Q6H PRN PRN Reason: FOR ITCHING Last Admin: 07/23/17 19:01 Dose: 50 mg Docusate Sodium (Colace -) 300 mg PO HS [facility] Last Admin: 07/23/17 22:04 Dose: Not Given Hydroxychloroquine Sulfate (Plaquenil -) 400 mg PO DAILY [facility] Last Admin: 07/24/17 10:51 Dose: 400 mg Hydroxyzine HCl (Atarax -) 50 mg PO TID PRN PRN Reason: FOR ITCHING Last Admin: 07/24/17 05:23 Dose: 50 mg IV Flush (Picc Line Flush) 8 ml IVPUSH PRN PRN PRN Reason: Protocol Last Admin: 07/16/17 17:18 Dose: 8 ml Vancomycin HCl 1,000 mg/ (Dextrose) 250 mls @ 250 mls/hr IVPB BID@0100,1300 MOI PRN Reason: Protocol Last Admin: 07/24/17 01:06 Dose: 250 mls/hr Cefepime HCl 2 gm/ Dextrose 100 mls @ 200 mls/hr IVPB Q8H-IV [facility] Last Admin: 07/24/17 10:52 Dose: 200 mls/hr Sodium Chloride (Normal Saline -) 1,000 mls @ 5 mls/hr IV ASDIR [facility] Last Admin: 07/24/17 10:52 Dose: Not Given Morphine Sulfate (Msir -) 15 mg PO Q4H PRN PRN Reason: PAIN LEVEL 7 - 10 Last Admin: 07/24/17 05:22 Dose: 15 mg Morphine Sulfate (Ms Contin -) 30 mg PO BID [facility] Last Admin: 07/24/17 10:50 Dose: 30 mg Nystatin (Nystop Powder -) 1 applic TP DAILY [facility] Last Admin: 07/24/17 10:54 Dose: 1 applic Pantoprazole Sodium (Protonix -) 40 mg PO BID [facility] Last Admin: 07/24/17 10:51 Dose: 40 mg Potassium Chloride (K-Dur -) 40 meq PO DAILY@0800 [facility] Last Admin: 07/24/17 10:51 Dose: 40 meq Quetiapine Fumarate (Seroquel -) 50 mg PO [facility] Last Admin: 07/23/17 22:06 Dose: 50 mg Topiramate (Topamax -) 25 mg PO [facility] Last Admin: 07/23/17 22:07 Dose: 25 mg - Allergies Allergies: Allergies Allergy/AdvReac Type Severity Reaction Status Date / Time methotrexate Allergy Unknown Vomiting Verified 03/12/17 18:53 metoclopramide HCl Allergy Unknown dystonia Verified 03/12/17 18:52 [From [facility]] - Current Living Status Usual Living Arrangement: Alone - Current Mental Status Evaluation Appearance: Well Groomed Attitude: Cooperative - Affect Affect: Constrictive Appropriateness: Appropriate to Content - Mood Mood: Anxious - Speech/Language Expressive: Coherent - Psychomotor Activity Psychomotor Activity: Normal - Thought Process Thought Process: Intact - Thought Content Hallucinations: Absent Delusions: Absent - Cognition Attention: Alert Orientation: Time Memory, Immediate Recall: Intact Memory, Short Term: 3/3 Memory, Remote with Promptin/3 - Concentration Serial Sevens Intact: Yes Simple Calculations Intact: Yes - Abstraction Proverb Interpretation: Intact Judgement: Minimally Impaired - Insight Insight: Intact - Impulse Control Impulse Control: Good Control - Suicidal Ideation Suicidal Ideation: No - Homicidal Ideation Homicidal Ideation: No Assessment/Plan 1) patient does not haver Schiziohrenia, 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 Continue with Valium for anxiety. 3) Patient has the mental capacity to make informed decisiomns. 4) Not acutely Psychotic at this time.
[2017-07-24] MEDS: diphenhydrAMINE HCL 25 MG CAPSULE (FP) PO PRN (18:37)
[2017-07-24] MEDS ORDERED: QUEtiapine FUMARATE 25 MG TABLET (FP) ONE (21:41)
[2017-07-24] MEDS: DOCUSATE SODIUM 100 MG CAPSULE (FP) PO SCH (22:07)
[2017-07-24] MEDS: TOPIRAMATE 25 MG TABLET (FP) PO SCH (22:09)
[2017-07-24] MEDS: QUEtiapine FUMARATE 50 MG TABLET PO SCH (22:10)
[2017-07-25] MEDS: VANCOMYCIN 1,000 MG in DEXTROSE 5%-WATER - 250 ML IVPB SCH ×2 (00:13→13:17)
[2017-07-25] MEDS: CEFEPIME 2 GM in DEXTROSE 5%-WATER - 100 ML IVPB SCH ×3 (01:29→17:49)
[2017-07-25] MEDS: diphenhydrAMINE HCL 25 MG CAPSULE (FP) PO PRN ×3 (04:13→22:29)
[2017-07-25] MEDS: morphine SULFATE IMMEDIATE RELEASE 30 MG TAB PO PRN ×2 (04:14→18:07)
--- NOTE | 2017-07-25 07:35 | DS ---
Physical Examination Vital Signs: Vital Signs Temperature 98.1 F 07/25/17 07:09 Pulse Rate 68 07/25/17 07:09 Respiratory Rate 20 07/25/17 07:09 Blood Pressure 102/58 07/25/17 07:09 O2 Sat by Pulse Oximetry (%) 98 07/24/17 21:00 Cardiovascular: Yes: Regular Rate and Rhythm Respiratory: Yes: Regular, CTA Bilaterally Gastrointestinal: Yes: Normal Bowel Sounds, Soft Labs: CBC, BMP 07/23/17 06:10 07/23/17 06:10 Discharge Summary Reason For Visit: OPEN WOUND OF HIP AND THIGH Current Active Problems Chronic osteomyelitis (Acute) Edema (Acute) Lupus (systemic lupus erythematosus) (Acute) Needs peripherally inserted central catheter (PICC) (Acute) Wound, open, hip or thigh (Acute) Yeast infection (Acute) Hospital Course: Patient is a 46 year old female with a PMH of schizophrenia, SLE (w/associated pericarditis) and a chronic LLE hip ulcer who presents from [facility] at the behest of her PCP, Dr. Rivera, for placement of a PICC line. Patient has been receiving PO abx while at [facility] and denies any allergic or anaphylactic reaction. During her stay she was evaluated by Orthopedic, Infectious disease and vascular for left hip osteomyelitis. It was strongly recommended that she has surgical debridement of the wound in the OR, which patient adamently refused. She persistently wanted to go home but was unable to because there was no provision of responsible libertarian at home to provide daily wound care. She also refused to go to [facility]. Eventually, It was recommended that she at least gets cefepime and Vancomycin for at least 6 weeks with the warning that this may not resolve her symptoms. - Problems (1) Chronic osteomyelitis Assessment/Plan: Left hip, states it has been draining for a while MRI left hip shows: Penetrating ulceration extending from the cutaneous soft tissues to the level of the left greater trochanter with diffuse surrounding inflammatory changes. Bone marrow edema involving the left greater trochanter is suggestive of focal osteomyelitis. No gross drainable collection noted. Avascular necrosis of the femoral heads noted bilaterally measuring approximately 7 mm. No subchondral collapse. Increased signal within the left femoral shaft could be related to increased red marrow signal. Fibroid uterus. -IV abx via PICC, -awaiting safe discharge plan either home or SNF. Code(s): M86.60 - OTHER CHRONIC OSTEOMYELITIS, UNSPECIFIED SITE (2) Lupus (systemic lupus erythematosus) Assessment/Plan: -Sees Dr Kong Laird at [facility] -has been on plaquenil for a while, methotrexate was discontinued due to intolerance. -Seen by rheumatology here Code(s): M32.9 - SYSTEMIC LUPUS ERYTHEMATOSUS, UNSPECIFIED (3) Yeast infection Assessment/Plan: Clotrimazole/beta Code(s): B37.9 - CANDIDIASIS, UNSPECIFIED Condition: Guarded - Instructions Diet, Activity, Other Instructions: Follow up with orthopedist outpatient Follow up with Infectious disease outpatient Referrals: Brian Rivera MD [Primary Care Provider] - Disposition: TRANSFER ACUTE CARE/OTHER HOSP - Home Medications Comprehensive Discharge Medication List: Ambulatory Orders Docusate Sodium [Colace -] 100 mg PO HS #30 tab MDD 1 03/20/17 Pantoprazole Sodium [Protonix -] 40 mg PO BID #60 tab MDD 2 03/20/17 Aa/Monroe Shelly,Whey/Arg/C/Zn/Cu [Lps Critical Care Liquid] 30 ml PO TID 07/05/17 Acetaminophen 650 mg PO PRN 07/05/17 Ammonium Lactate Cream [Lac-Hydrin 12% *Cream*] 1 applic TP BID 07/05/17 Ascorbate Calcium [Vitamin C] 500 mg PO DAILY 07/05/17 Bismuth Tribromoph/Petrolatum [Xeroform Petrolatum Dress] 1 each TP PRN Diazepam [Valium] 5 mg PO BID MDD 1 07/05/17 Folic Acid 3 mg PO DAILY 07/05/17 Furosemide [Lasix] 40 mg PO BID 07/05/17 Hydroxychloroquine Sulfate [Plaquenil] 400 mg PO DAILY 07/05/17 Ipratropium/Albuterol Sulfate [Iprat-Albut 0.5-3(2.5) mg/3 ml] 3 ml IH PRN 07/05 Morphine *Immediate Release* [Msir -] 15 mg PO Q4H PRN 07/05/17 Morphine *Sr* [Ms Contin -] 30 mg PO Q12H 07/05/17 Potassium Chloride 40 meq PO DAILY 07/05/17 Quetiapine Fumarate [Seroquel -] 50 mg PO HS 07/05/17 Topiramate 25 mg PO HS 07/05/17 Cefepime [Maxipime (Restricted To Id) -] 2 gm IVPB Q8H-IV vial 07/13/17 Diazepam [Valium] 5 mg PO BID #60 tablet MDD 2 07/13/17 Diphenhydramine HCl [Benadryl Capsule -] 25 mg PO Q6H PRN #120 capsule 07/13/17 Docusate Sodium [Colace -] 300 mg PO HS #30 capsule 07/13/17 Fluconazole [Diflucan -] 100 mg PO DAILY #1 tablet 07/13/17 Hydroxychloroquine So4 [Plaquenil -] 400 mg PO DAILY tablet 07/13/17 Morphine *Immediate Release* [Msir -] 15 mg PO Q4H PRN #180 tab MDD 6 07/13/17 Morphine *Sr* [MS Contin -] 30 mg PO BID #60 tablet.sa MDD 2 07/13/17 Mupirocin Cream [Bactroban 2% Cream -] 1 applic TP BID #1 tube 07/13/17 Pantoprazole Sodium [Protonix -] 40 mg PO BID tablet.ec 07/13/17 Potassium Chloride [K-Dur -] 40 meq PO DAILY@0800 #60 tablet.er 07/13/17 Quetiapine Fumarate [Seroquel -] 50 mg PO HS tablet 07/13/17 Topiramate [Topamax -] 25 mg PO HS tablet 07/13/17 Vancomycin 1,000 mg IVPB BID@0100,1300 vial 07/13/17
[2017-07-25] MEDS: POTASSIUM CHLORIDE TABS 20 MEQ TABLET.ER (FP) PO SCH (09:00)
[2017-07-25] MEDS: PANTOPRAZOLE 40 MG TABLET (FP) PO SCH ×2 (11:37→22:19)
[2017-07-25] MEDS: morphine SO4 SUSTAINED ACTING 30 MG TABLET.SA PO SCH ×2 (11:37→22:19)
[2017-07-25] MEDS: CLOTRIMAZOLE/BETAMET DIPROP 15 GM TUBE TP SCH ×2 (11:39→22:30)
[2017-07-25] MEDS: NYSTATIN POWDER 100,000 UNITS/GM - 15 GM TOPICAL POWDER TP SCH (11:39)
[2017-07-25] MEDS: SODIUM CHLORIDE 1,000 ML IV SCH (11:43)
[2017-07-25] MEDS ORDERED: PT OWN MED DRAWER 7, Y5N ONE ×4 (11:46→17:25)
[2017-07-25] MEDS: diazePAM 5 MG TABLET PO SCH ×2 (11:49→22:19)
[2017-07-25] MEDS: HYDROXYCHLOROQUINE SO4 200 MG TABLET (FP) PO SCH (11:49)
[2017-07-25] MEDS: hydrOXYzine HCL 25 MG TABLET (FP) PO PRN (17:49)
[2017-07-25] MEDS ORDERED: QUEtiapine FUMARATE 25 MG TABLET (FP) ONE (21:00)
[2017-07-25] MEDS: QUEtiapine FUMARATE 50 MG TABLET PO SCH (22:19)
[2017-07-25] MEDS: TOPIRAMATE 25 MG TABLET (FP) PO SCH (22:19)
[2017-07-25] MEDS: DOCUSATE SODIUM 100 MG CAPSULE (FP) PO SCH (22:21)
[2017-07-26] MEDS: VANCOMYCIN 1,000 MG in DEXTROSE 5%-WATER - 250 ML IVPB SCH ×2 (00:45→15:11)
[2017-07-26] MEDS: CEFEPIME 2 GM in DEXTROSE 5%-WATER - 100 ML IVPB SCH ×3 (02:48→17:39)
[2017-07-26] MEDS: hydrOXYzine HCL 25 MG TABLET (FP) PO PRN ×2 (04:05→16:46)
[2017-07-26] MEDS: morphine SULFATE IMMEDIATE RELEASE 30 MG TAB PO PRN ×2 (04:06→16:46)
[2017-07-26] MEDS ORDERED: PT OWN MED DRAWER 7, Y5N ONE ×2 (09:36→14:25)
[2017-07-26] MEDS: PANTOPRAZOLE 40 MG TABLET (FP) PO SCH (09:50)
[2017-07-26] MEDS: POTASSIUM CHLORIDE TABS 20 MEQ TABLET.ER (FP) PO SCH (09:50)
[2017-07-26] MEDS: diazePAM 5 MG TABLET PO SCH (09:50)
[2017-07-26] MEDS: morphine SO4 SUSTAINED ACTING 30 MG TABLET.SA PO SCH (09:50)
[2017-07-26] MEDS: HYDROXYCHLOROQUINE SO4 200 MG TABLET (FP) PO SCH (09:50)
--- NOTE | 2017-07-26 10:43 | PN ---
Progress Note, Physician Chief Complaint: left hip osteomyelitis History of Present Illness: NAD, in bed has PICC line IV abx Declined by [facility] over the weekend. 07/23/17 Pt called [facility] this morning and was told, that someone from [facility] called them and told them that pt doesn't need surgical intervention for her osteomyelitis and all she needs is Wound care and IV abx. The first day I spoke to Dr Shelton, it was clearly mentioned that patient wants to transfer to [facility] because she prefers to have surgical intervention needed for her osteomyelitis at [facility] instead of [facility]. I spoke to Dr Shelton today again, and was told there was some mis- communication. He has been aware that patient needs surgical debridement, but he is not willing to accept the patient as the procedure can be done at [facility]. He expressed that he also spoke to Dr Triana who is patient's product picker who was in agreement because patient doesn't have any symptoms of acute exacerbation of Lupus and was evaluated by product picker at [facility]. 1500: Patient states that she spoke to Dr Triana over the weekend, who mentioned that she wants the patient to be transferred to [facility]. She is afraid that stress of the surgery may flare up her lupus. 1800: Spoke to Dr Triana, who mentioned, she has not spoken to the patient since over 1 week ago. She has been treating patient outpatient for Lupus but pt hasn't had an active lupus in a long time. Dr Triana also mentioned that she had to bring patient in her clinic on weekly basis at one point because patient overdosed on methotrexate by giving herself more than directed dose. At this point, she doesn't think patient needs to be at [facility] and she is not worried about patient's Lupus flaring up. Would communicate this to the patient. 07/24/17 Spoke to patient in presence of HALLIE Orantes. Informed patient that I spoke to Dr Triana and she doesn't think patient needs to be at [facility] because her Lupus is controlled, upon which patient expressed that it is not possible that I would 've spoken to Dr Triana because pt was informed that Dr Triana [place]. I personally made an attempt to call Dr Triana on her cell which went to [employer], left message to call back. Pt expressed that she will find another PCP at [facility]. I informed patient, she may find another accepting PCP at [facility]. Once accepted, there would be no problem transferring her to [facility]. 07/26/17 Were awaiting appeal decision filed by patient to medicare. Final decision made for patient to go home with services. Spoke to patient in presence of Jenelle Carpenter , about final decision by Medicare. Also, that patient would need to follow up with Orthopedist outpatient for possible surgical debridement. - Current Medication List Current Medications: Active Medications Clotrimazole (Lotrisone Cream (Small Tube)) 1 applic TP BID [facility] Last Admin: 07/25/17 22:30 Dose: 1 applic Diazepam (Valium -) 5 mg PO BID [facility] Last Admin: 07/26/17 09:50 Dose: 5 mg Diphenhydramine HCl (Benadryl -) 50 mg PO Q6H PRN PRN Reason: FOR ITCHING Last Admin: 07/25/17 22:29 Dose: 50 mg Docusate Sodium (Colace -) 300 mg PO HS [facility] Last Admin: 07/25/17 22:21 Dose: Not Given Hydroxychloroquine Sulfate (Plaquenil -) 400 mg PO DAILY [facility] Last Admin: 07/26/17 09:50 Dose: 400 mg Hydroxyzine HCl (Atarax -) 50 mg PO TID PRN PRN Reason: FOR ITCHING Last Admin: 07/26/17 04:05 Dose: 50 mg IV Flush (Picc Line Flush) 8 ml IVPUSH PRN PRN PRN Reason: Protocol Last Admin: 07/16/17 17:18 Dose: 8 ml Vancomycin HCl 1,000 mg/ (Dextrose) 250 mls @ 250 mls/hr IVPB BID@0100,1300 MOI PRN Reason: Protocol Last Admin: 07/26/17 00:45 Dose: 250 mls/hr Cefepime HCl 2 gm/ Dextrose 100 mls @ 200 mls/hr IVPB Q8H-IV [facility] Last Admin: 07/26/17 09:49 Dose: 200 mls/hr Sodium Chloride (Normal Saline -) 1,000 mls @ 5 mls/hr IV ASDIR [facility] Last Admin: 07/25/17 11:43 Dose: Not Given Morphine Sulfate (Msir -) 15 mg PO Q4H PRN PRN Reason: PAIN LEVEL 7 - 10 Last Admin: 07/26/17 04:06 Dose: 15 mg Morphine Sulfate (Ms Contin -) 30 mg PO BID [facility] Last Admin: 07/26/17 09:50 Dose: 30 mg Nystatin (Nystop Powder -) 1 applic TP DAILY [facility] Last Admin: 07/25/17 11:39 Dose: 1 applic Pantoprazole Sodium (Protonix -) 40 mg PO BID [facility] Last Admin: 07/26/17 09:50 Dose: 40 mg Potassium Chloride (K-Dur -) 40 meq PO DAILY@0800 [facility] Last Admin: 07/26/17 09:50 Dose: 40 meq Quetiapine Fumarate (Seroquel -) 50 mg PO [facility] Last Admin: 07/25/17 22:19 Dose: 50 mg Topiramate (Topamax -) 25 mg PO [facility] Last Admin: 07/25/17 22:19 Dose: 25 mg - Objective Vital Signs: Vital Signs Temperature 98.1 F 07/26/17 06:00 Pulse Rate 67 07/26/17 06:00 Respiratory Rate 18 07/26/17 06:00 Blood Pressure 92/55 07/26/17 06:00 O2 Sat by Pulse Oximetry (%) 98 07/24/17 21:00 Constitutional: Yes: Well Nourished, No Distress, Calm Wound/Incision: Yes: Dressing Dry and Intact Neurological: Yes: Alert, Oriented Psychiatric: Yes: Alert, Oriented Labs: CBC, BMP 07/23/17 06:10 07/23/17 06:10 Problem List - Problems (1) Chronic osteomyelitis Assessment/Plan: refused surgical intervention at [facility] -denied transfer by [facility] MRI left hip shows: Penetrating ulceration extending from the cutaneous soft tissues to the level of the left greater trochanter with diffuse surrounding inflammatory changes. Bone marrow edema involving the left greater trochanter is suggestive of focal osteomyelitis. No gross drainable collection noted. Avascular necrosis of the femoral heads noted bilaterally measuring approximately 7 mm. No subchondral collapse. Increased signal within the left femoral shaft could be related to increased red marrow signal. Fibroid uterus. -IV abx via PICC, -d/c home with home care services -f/u with orthopedist outpatient Code(s): M86.60 - OTHER CHRONIC OSTEOMYELITIS, UNSPECIFIED SITE (2) Lupus (systemic lupus erythematosus) Assessment/Plan: -Sees Dr Kong Laird at [facility] -has been on plaquenil for a while, methotrexate was discontinued due to intolerance. -Seen by rheumatology here Code(s): M32.9 - SYSTEMIC LUPUS ERYTHEMATOSUS, UNSPECIFIED (3) Yeast infection Assessment/Plan: Clotrimazole/beta Code(s): B37.9 - CANDIDIASIS, UNSPECIFIED Assessment/Plan see problem list
[2017-07-26] MEDS: CLOTRIMAZOLE/BETAMET DIPROP 15 GM TUBE TP SCH (11:19)
[2017-07-26] MEDS: NYSTATIN POWDER 100,000 UNITS/GM - 15 GM TOPICAL POWDER TP SCH (11:19)
[2017-07-26] MEDS: SODIUM CHLORIDE 1,000 ML IV SCH (11:20)
[2017-07-26] MEDS: diphenhydrAMINE HCL 25 MG CAPSULE (FP) PO PRN (11:26)
[2017-07-26 15:43] VITALS: BP 120/70; PULSE 84; TEMP 98.6
== END 2017-07-26 18:19 | disposition home or self-care (01) | DRG 540 ==
LOC: JER 11:57 → JERBED 22:57 → INTOOBSV 07-06 09:56 → OBSVTOIN 07-06 09:56 → J8W 07-06 18:04
PROVIDERS: ADMIT Family Medicine; ATTEND Student in an Organized Health Care Education/Training Program
PROC: 02HV33Z Insertion of Infusion Device into Superior Vena Cava, Percutaneous Approach (ICD-10-PCS; principal; 2017-07-12)
DX: M86.8X5 Other osteomyelitis, thigh (principal); F20.89 Other schizophrenia; M87.852 Other osteonecrosis, left femur; M87.851 Other osteonecrosis, right femur; L97.128 Non-pressure chronic ulcer of left thigh with other specified severity; S71.102A Unspecified open wound, left thigh, initial encounter; M86.60 Other chronic osteomyelitis, unspecified site; X58.XXXA Exposure to other specified factors, initial encounter; Y93.89 Activity, other specified; Y92.89 Other specified places as the place of occurrence of the external cause; L93.0 Discoid lupus erythematosus; R60.9 Edema, unspecified; B96.89 Other specified bacterial agents as the cause of diseases classified elsewhere; B37.9 Candidiasis, unspecified; D25.9 Leiomyoma of uterus, unspecified
CPT/HCPCS: 36415; 36569; 73523-TC-FY; 73700-TC-RT; 73718-LT; 77001-TC-FY; 80053; 83735; 85025; 85651; 86140; 87040; 97116-GP; 97161-GP; 99285-25; C1751; G0378; G0463-25; G0480

== ENCOUNTER 2018-04-13 23:26 | Inpatient (IN) | payer OTHER ==
--- NOTE | 2018-04-13 23:54 | PDOC ---
Attending Attestation - HPI HPI: 04/14/18 01:17 EST The patient is a 47-year-old female with past medical history significant for SLE w/ associated pericarditis, Major depression (w/ prior admission to Mental institution) was brought to the emergency department via EMS after being found unresponsive in the parking lot of her condo. The patient reports shes been noncompliant with her depression medication since September. The patient states she hasnt eaten anything for the past several days. The patient states shes on Morphine, for the pain from LUPUS, thats managed by her pain management doctor. Denies the use of cocaine, heroin, alcohol, marijuana. Kian difficulty breathing or ambulating. Allergies: methotrexate and metoclopramide HCl - Physicial Exam PE: 04/14/18 01:17 EST GENERAL: Awake, alert, and fully oriented, in no acute distress HEAD: No signs of trauma EYES: PERRLA, EOMI, sclera anicteric, conjunctiva clear ENT: Auricles normal inspection, hearing grossly normal, nares patent, Moist mucosa NECK: Normal ROM, supple, no lymphadenopathy, JVD, or masses LUNGS: Breath sounds equal, clear to auscultation bilaterally. No wheezes, and no crackles HEART: Regular rate and rhythm, normal S1 and S2, no murmurs, rubs or gallops ABDOMEN: Soft, nontender, No guarding, no rebound. No masses EXTREMITIES: +Cold upper and lower extremity. Normal range of motion, no edema. No clubbing or cyanosis. No cords, erythema, or tenderness NEUROLOGICAL: Normal speech. SKIN: Warm, Dry, normal turgor, no rashes or lesions noted. - Medical Decision Making 04/14/18 01:17 EST Documentation prepared by Rachelle Middleton, acting as medical billing instructor for Vanessa Monge MD. <Rachelle Middleton - Last Filed: 04/14/18 01:32 EST> - Resident Resident Name: Emmett Izaguirre - ED Attending Attestation I have performed the following: I have examined & evaluated the patient, The case was reviewed & discussed with the resident, I agree w/resident's findings & plan - Medical Decision Making 04/14/18 02:29 Pt states that she has major Depressive Disporder (MDD) and she has not been compliant with her antidepressant for the past 5-6 months. Pt states that she is not suicidal and that she doesn't use drugs or alcohol. Just ehr morphine and her lyrica which are prescribed to her. She has no other complaints, other than the fact that she is cold, as she was found down in the street, in the parking lot across from her apartment. 04/14/18 03:34 Patient Name: ALFREDO DESHPANDE THIS IS A PRELIMINARY REPORT FROM [facility] 911 OPERATOR DATE OF SERVICE: 2018-04-14 02:39:57 IMAGES: 143 EXAM: HEAD CT WITHOUT CONTRAST HISTORY: Altered mental status COMPARISON: None. FINDINGS No hemorrhage. No mass. No visible infarct. There may be mild involutional changes. Osseous structures are intact. CXR normal appearing. UTOX pending Labs normal 04/14/18 03:35 Pt's lactic acid is elevated. We will repeat it 04/14/18 06:53 Pt is attempting to leave the hospital thru the ambulance entrance. We brought her back to bed, and had to give her 5mg haldol, 2mg ativan, and 50 mg benadryl to keep her here. Resident placed pt on a 1:1. She is stable and the day ER attending is aware of her <Vanessa Monge - Last Filed: 04/14/18 20:16>
[2018-04-14] MEDS: HEPARIN NA (PORCINE) 5,000 UNITS/ML 1ML VIAL SQ SCH ×4 (00:17→15:00)
[2018-04-14 01:06] LABS: BASO % 0.1 % (0-2.0); HEMATOCRIT 35.6 % (32.4-45.2); HEMOGLOBIN 11.7 GM/dL (10.7-15.3); LYMPH % 6.7 % (8-40); MCH 21.9 pg (25.7-33.7); MCHC 32.9 g/dl (32.0-36.0); MEAN CELL VOLUME 66.7 fl (80-96); MEAN PLT VOLUME 9.6 fl (7.5-11.1); MONO % 6.1 % (3.8-10.2); NEUT % 87.1 % (42.8-82.8); PLATELET COUNT 312 K/MM3 (134-434); RBC 5.34 M/mm3 (3.60-5.2); RDW 22.5 % (11.6-15.6); WHITE BLOOD COUNT 7.7 K/mm3 (4.0-10.0)
[2018-04-14] MEDS ORDERED: SODIUM CHLORIDE 0.9% 1000 ML INFUS.BAG IV ONE (01:12)
[2018-04-14 01:44] LABS: INR 1.07 (0.83-1.09); PROTHROMBIN TIME (PATIENT) 12.6 SEC (9.7-13.0)
[2018-04-14 01:46] LABS: ACTIVATED PTT 25.5 SECONDS (25.2-36.5)
--- NOTE | 2018-04-14 01:48 | PDOC ---
History of Present Illness - General Chief Complaint: Weakness Stated Complaint: ALTERED MENTAL STATUS Time Seen by Provider: 04/13/18 23:30 History Source: Patient, EMS Exam Limitations: Unresponsive - History of Present Illness Initial Comments: 04/14/18 01:29 EDT The patient is a 47F with a PMH of depression, lupus, CKD, and anemia who presents to the ER unresponsive. The patient can only say her name. History is provided by EMS. EMS states that they were called for an unresponsive female who was found down outside for unknown amount of time. No other history could be obtained. Neighbors state that the patient has lupus and that is all they know. Past History - Past Medical History Allergies/Adverse Reactions: Allergies Allergy/AdvReac Type Severity Reaction Status Date / Time methotrexate Allergy Unknown Vomiting Verified 03/12/17 18:53 metoclopramide HCl Allergy Unknown dystonia Verified 03/12/17 18:52 [From Reglan] Home Medications: Ambulatory Orders Acetaminophen 650 mg PO PRN 07/05/17 Ipratropium/Albuterol Sulfate [Iprat-Albut 0.5-3(2.5) mg/3 ml] 3 ml IH PRN 07/05 Cefepime [Maxipime (Restricted To Id) -] 2 gm IVPB Q8H-IV vial 07/13/17 Diazepam [Valium] 5 mg PO BID #60 tablet MDD 2 07/13/17 Diphenhydramine HCl [Benadryl Capsule -] 25 mg PO Q6H PRN #120 capsule 07/13/17 Docusate Sodium [Colace -] 300 mg PO HS #30 capsule 07/13/17 Hydroxychloroquine So4 [Plaquenil -] 400 mg PO DAILY tablet 07/13/17 Morphine *Immediate Release* [Msir -] 15 mg PO Q4H PRN #180 tab MDD 6 07/13/17 Morphine *Sr* [MS Contin -] 30 mg PO BID #60 tablet.sa MDD 2 07/13/17 Mupirocin Cream [Bactroban 2% Cream -] 1 applic TP BID #1 tube 07/13/17 Pantoprazole Sodium [Protonix -] 40 mg PO BID tablet.ec 07/13/17 Potassium Chloride [K-Dur -] 40 meq PO DAILY@0800 #60 tablet.er 07/13/17 Quetiapine Fumarate [Seroquel -] 50 mg PO HS tablet 07/13/17 Topiramate [Topamax -] 25 mg PO HS tablet 07/13/17 Vancomycin 1,000 mg IVPB BID@0100,1300 vial 07/13/17 Clotrimazole/Betamet Diprop [Lotrisone -] 1 applic TP BID #45 g 07/25/17 Diphenhydramine HCl [Benadryl Capsule -] 50 mg PO Q6H PRN #240 capsule 07/25/17 Nystatin Powder [Nystop Powder -] 1 applic TP DAILY #1 bottle 07/25/17 hydrOXYzine HCL [Atarax -] 50 mg PO TID PRN #240 tablet 07/25/17 Aa/[place]/Arg/C/Zn/Cu [Lps Critical Care Liquid] 30 ml PO TID #90 liquid 07/26/17 Ascorbate Calcium [Vitamin C] 500 mg PO DAILY #30 tablet 07/26/17 Cane 1 each MC PRN #1 each 07/26/17 Diazepam [Valium] 5 mg PO BID #60 tablet MDD 2 07/26/17 Diphenhydramine [Benadryl -] 50 mg PO Q6H PRN #120 capsule 07/26/17 Docusate Sodium [Colace -] 100 mg PO HS #30 tab MDD 1 07/26/17 Folic Acid 3 mg PO DAILY #30 tablet 07/26/17 Furosemide [Lasix] 40 mg PO BID #60 tablet 07/26/17 Hydroxychloroquine Sulfate [Plaquenil] 400 mg PO DAILY #60 tablet 07/26/17 Hydroxyzine HCl 50 mg PO Q6H PRN #120 tablet 07/26/17 Morphine *Immediate Release* [Msir -] 15 mg PO Q4H PRN #180 tab MDD 6 07/26/17 Morphine *Sr* [MS Contin -] 30 mg PO Q12H #60 tablet.sa MDD 2 07/26/17 Pantoprazole Sodium [Protonix -] 40 mg PO BID #60 tab MDD 2 07/26/17 Potassium Chloride 40 meq PO DAILY #30 tablet.er 07/26/17 Quetiapine Fumarate [Seroquel -] 50 mg PO HS #30 tablet 07/26/17 Topiramate 25 mg PO HS #30 tablet 07/26/17 Anemia: No Asthma: No Cancer: No Cardiac Disorders: Yes (stemi) CVA: No COPD: No CHF: No Dementia: No Diabetes: No GI Disorders: Yes (gerd) Disorders: No HTN: No Hypercholesterolemia: No Liver Disease: No Psychiatric Problems: Yes (anxiety, schizophrenia) Seizures: No Thyroid Disease: No - Immunization History Immunization Up to Date: No - Suicide/Smoking/Psychosocial Hx Smoking History: Unknown if ever smoked Have you smoked in the past 12 months: No Information on smoking cessation initiated: No Hx Alcohol Use: No Drug/Substance Use Hx: No Substance Use Type: None Hx Substance Use Treatment: No Review of Systems - Review of Systems Able to Perform ROS?: No (not responding) *Physical Exam - Vital Signs Last Vital Signs Temp Pulse Resp BP Pulse Ox 98.6 F 133/72 04/13/18 23:35 04/13/18 23:35 - Physical Exam Comments: 04/14/18 01:30 EDT GENERAL: Well developed, well nourished. Awake and alert. No acute distress. HEENT: Normocephalic, atraumatic. Hearing grossly normal. Moist mucous membranes. No conjunctival pallor. Sclera are non-icteric. NECK: Supple. Full ROM. CARDIOVASCULAR: Regular rate and rhythm. No murmurs, rubs, or gallops. PULMONARY: No evidence of respiratory distress. Lungs clear to auscultation bilaterally. No wheezing, rales or rhonchi. ABDOMINAL: Soft. Non-tender. Non-distended. No rebound or guarding. GENITOURINARY: No CVA tenderness bilaterally. MUSCULOSKELETAL: Normal range of motion at all joints. No bony deformities or tenderness. EXTREMITIES: Cold to touch. No cyanosis. No clubbing. No edema. No calf tenderness or swelling. SKIN: Warm and dry. Normal capillary refill. No rashes. No jaundice. NEUROLOGICAL: Alert, awake, appropriate. Cranial nerves 2-12 grossly intact. Normal speech. PSYCHIATRIC: Cooperative. Good eye contact. Appropriate mood and affect. Heart Score/ECG Review #1 ECG reviewed & interpreted by me at: 01:48 General ECG Interpretation: Sinus Rhythm, Normal Rate, Normal Intervals, No acute ischemic changes Compared to previous ECG there are: No significant change 04/14/18 01:49 EDT Sinus tach vent rate 100 SD 126 QRS 94 QTc 477 No STD or KARTHIK No signs of acute ischemia ED Treatment Course - LABORATORY CBC & Chemistry Diagram: 04/14/18 01:10 EST 04/14/18 01:10 EST - RADIOLOGY Radiology Studies Ordered: Category Date Time Status HEAD CT WITHOUT CONTRAST [CT] Stat CT Scan 04/13/18 23:30 Ordered CHEST X-RAY PORTABLE* [RAD] Stat Radiology 04/13/18 23:30 Ordered Medical Decision Making - Medical Decision Making 04/14/18 01:49 EDT The patient is a 47F with a PMH of depression, lupus who presents to the ER after being found unresponsive. Pt is cold to touch but has oral temp of 98.6. FS 180's. VSS. Pt states she may have passed out and did not answer if she attempted suicide. Further questioning reveals that the patient has cold-turkey stopped her antidepressant meds in 6 months and has not taken her prednisone in unknown amount of time. Septic protocol is being followed with tox studies added. Pt states she hears her friends outside of the room without friends present. Will likely obs for psych evaluation in the morning. 04/14/18 02:00 Labs noted for lactate 2.4. Pt refuses IV. Will give PO hydration. 04/14/18 02:42 Pt endorsed to hospitalist, Dr. Ann, for short stay. *DC/Admit/Observation/Transfer Diagnosis at time of Disposition: Unresponsive Lupus (systemic lupus erythematosus) Qualifiers: Systemic lupus erythematosus type: unspecified Systemic lupus erythematosus organ involvement: unspecified Qualified Code(s): M32.9 - Systemic lupus erythematosus, unspecified - Discharge Dispostion Condition at time of disposition: Guarded Decision to Admit order: Yes - Referrals - Patient Instructions - Post Discharge Activity
[2018-04-14 01:49] VITALS: BMI 25.2
[2018-04-14 01:52] LABS: ALBUMIN 4.4 g/dl (3.4-5.0); ALK PHOS 66 U/L (45-117); ANION GAP 12 MMOL/L (8-16); BILIRUBIN,TOTAL 0.7 mg/dL (0.2-1); BLOOD UREA NITROGEN 18 mg/dL (7-18); CALCIUM 9.7 mg/dL (8.5-10.1); CHLORIDE 104 mmol/L (98-107); CO2 24 mmol/L (21-32); CREATININE 1.2 mg/dL (0.55-1.3); GLUCOSE,RANDOM 117 mg/dL (74-106); POTASSIUM 3.7 mmol/L (3.5-5.1); SGOT/AST 18 U/L (15-37); SGPT/ALT 11 U/L (13-61); SODIUM 140 mmol/L (136-145); TOT PROT 8.4 g/dl (6.4-8.2)
--- NOTE | 2018-04-14 03:33 | HP ---
CHIEF COMPLAINT: BIBA unresponsive found on floor PCP: HISTORY OF PRESENT ILLNESS: Pt is a 47 y/o F with PMH Lupus, depression, CKD, and anemia who was BIBA unresponsive after being found on the ground in a parking lot. Pt is a poor historian speaking almost exclusively in single-word answers and becoming easily distracted. Pt also talks in circles. When asked why she was here, she stated "I wasn't eating". When asked why she wasn't eating, she stated "I didn' t take my medicine". When asked why she states again that she wasn't eating. Pt did eventually admit to having attempted suicide tonight, but when asked how, she states she didn't take her medicine. Pt admits to suicidality at this time. Denies homocidal ideation. Admits to hearing voices. ER course was notable for: (1) LA >2 (2)head CT, CXR (3) Recent Travel: PAST MEDICAL HISTORY: as above PAST SURGICAL HISTORY: Social History: Smoking: Alcohol: Drugs: Family History: Allergies methotrexate Allergy (Unknown, Verified 03/12/17 18:53) Vomiting metoclopramide HCl [From Reglan] Allergy (Unknown, Verified 03/12/17 18:52) dystonia HOME MEDICATIONS: Home Medications Medication Instructions Recorded Acetaminophen 650 mg PO PRN 07/05/17 Ipratropium/Albuterol Sulfate 3 ml IH PRN 07/05/17 [Iprat-Albut 0.5-3(2.5) mg/3 ml] Cefepime [Maxipime (Restricted To 2 gm IVPB Q8H-IV vial 07/13/17 Id) -] Diazepam [Valium] 5 mg PO BID #60 tablet MDD 2 07/13/17 Diphenhydramine HCl [Benadryl 25 mg PO Q6H PRN #120 capsule 07/13/17 Capsule -] Docusate Sodium [Colace -] 300 mg PO HS #30 capsule 07/13/17 Hydroxychloroquine So4 [Plaquenil 400 mg PO DAILY tablet 07/13/17 -] Morphine *Immediate Release* [Msir 15 mg PO Q4H PRN #180 tab MDD 6 07/13/17 -] Morphine *Sr* [MS Contin -] 30 mg PO BID #60 tablet.sa MDD 2 07/13/17 Mupirocin Cream [Bactroban 2% 1 applic TP BID #1 tube 07/13/17 Cream -] Pantoprazole Sodium [Protonix -] 40 mg PO BID tablet.ec 07/13/17 Potassium Chloride [K-Dur -] 40 meq PO DAILY@0800 #60 tablet.er 07/13/17 Quetiapine Fumarate [Seroquel -] 50 mg PO HS tablet 07/13/17 Topiramate [Topamax -] 25 mg PO HS tablet 07/13/17 Vancomycin 1,000 mg IVPB BID@0100,1300 vial 07/13/17 Clotrimazole/Betamet Diprop 1 applic TP BID #45 g 07/25/17 [Lotrisone -] Diphenhydramine HCl [Benadryl 50 mg PO Q6H PRN #240 capsule 07/25/17 Capsule -] Nystatin Powder [Nystop Powder -] 1 applic TP DAILY #1 bottle 07/25/17 hydrOXYzine HCL [Atarax -] 50 mg PO TID PRN #240 tablet 07/25/17 Aa/[place]/Arg/C/Zn/Cu 30 ml PO TID #90 liquid 07/26/17 [Lps Critical Care Liquid] Ascorbate Calcium [Vitamin C] 500 mg PO DAILY #30 tablet 07/26/17 Cane 1 each PRN #1 each 07/26/17 Diazepam [Valium] 5 mg PO BID #60 tablet MDD 2 07/26/17 Diphenhydramine [Benadryl -] 50 mg PO Q6H PRN #120 capsule 07/26/17 Docusate Sodium [Colace -] 100 mg PO HS #30 tab MDD 1 07/26/17 Folic Acid 3 mg PO DAILY #30 tablet 07/26/17 Furosemide [Lasix] 40 mg PO BID #60 tablet 07/26/17 Hydroxychloroquine Sulfate 400 mg PO DAILY #60 tablet 07/26/17 [Plaquenil] Hydroxyzine HCl 50 mg PO Q6H PRN #120 tablet 07/26/17 Morphine *Immediate Release* [Msir 15 mg PO Q4H PRN #180 tab MDD 6 07/26/17 -] Morphine *Sr* [MS Contin -] 30 mg PO Q12H #60 tablet.sa MDD 2 07/26/17 Pantoprazole Sodium [Protonix -] 40 mg PO BID #60 tab MDD 2 07/26/17 Potassium Chloride 40 meq PO DAILY #30 tablet.er 07/26/17 Quetiapine Fumarate [Seroquel -] 50 mg PO HS #30 tablet 07/26/17 Topiramate 25 mg PO HS #30 tablet 07/26/17 REVIEW OF SYSTEMS CONSTITUTIONAL: Absent: fever, chills, diaphoresis, generalized weakness, malaise, loss of appetite, weight change HEENT: Absent: rhinorrhea, nasal congestion, throat pain, throat swelling, difficulty swallowing, mouth swelling, ear pain, eye pain, visual changes CARDIOVASCULAR: Absent: chest pain, syncope, palpitations, irregular heart rate, lightheadedness , peripheral edema RESPIRATORY: Absent: cough, shortness of breath, dyspnea with exertion, orthopnea, wheezing, stridor, hemoptysis GASTROINTESTINAL: Absent: abdominal pain, abdominal distension, nausea, vomiting, diarrhea, constipation, melena, hematochezia GENITOURINARY: Absent: dysuria, frequency, urgency, hesitancy, hematuria, flank pain, genital pain MUSCULOSKELETAL: Absent: myalgia, arthralgia, joint swelling, back pain, neck pain SKIN: Absent: rash, itching, pallor HEMATOLOGIC/IMMUNOLOGIC: Absent: easy bleeding, easy bruising, lymphadenopathy, frequent infections ENDOCRINE: Absent: unexplained weight gain, unexplained weight loss, heat intolerance, cold intolerance NEUROLOGIC: Absent: headache, focal weakness or paresthesias, dizziness, unsteady gait, seizure, mental status changes, bladder or bowel incontinence PSYCHIATRIC: Absent: anxiety, depression, suicidal or homicidal ideation, hallucinations. PHYSICAL EXAMINATION Vital Signs - 24 hr 04/13/18 23:35 Temperature 98.6 F Blood Pressure 133/72 Limited participation for exam Gen: Hyper vigialant with darting eyes. HEENT: NCAT Neck supple no jvd cardio: rrr, normal s1s2 pulm: cta b/l Laboratory Results - last 24 hr 04/14/18 04/14/18 04/14/18 01:10 EST 01:10 EST 01:10 EST WBC 7.7 RBC 5.34 H Hgb 11.7 Hct 35.6 D MCV 66.7 L MCH 21.9 L MCHC 32.9 RDW 22.5 H Plt Count 312 D MPV 9.6 Absolute Neuts (auto) 6.7 Neutrophils % 87.1 H D Lymphocytes % 6.7 L D Monocytes % 6.1 Eosinophils % 0.0 D Basophils % 0.1 Nucleated RBC % 0 PT with INR 12.60 INR 1.07 PTT (Actin FS) 25.5 Sodium 140 Potassium 3.7 Chloride 104 Carbon Dioxide 24 Anion Gap 12 BUN 18 Creatinine 1.2 Creat Clearance w eGFR 48.36 Random Glucose 117 H Lactic Acid Calcium 9.7 Total Bilirubin 0.7 AST 18 ALT 11 L Alkaline Phosphatase 66 Total Protein 8.4 H Albumin 4.4 Serum , Qual 04/14/18 04/14/18 01:10 EST 01:10 EST WBC RBC Hgb Hct MCV MCH MCHC RDW Plt Count MPV Absolute Neuts (auto) Neutrophils % Lymphocytes % Monocytes % Eosinophils % Basophils % Nucleated RBC % PT with INR INR PTT (Actin FS) Sodium Potassium Chloride Carbon Dioxide Anion Gap BUN Creatinine Creat Clearance w eGFR Random Glucose Lactic Acid 2.4 H* Calcium Total Bilirubin AST ALT Alkaline Phosphatase Total Protein Albumin Serum , Qual Negative ASSESSMENT/PLAN: Pt is a 47 y/o F with PMMH lupus, depression, CKD, and anemia who was BIBA unresponsive after being found on the ground in a parking lot. #Suicidality -pt actively has suicidal ideation -Psych to see pt #Lupus -restart steroids -Pred 40 po #Lactic acidosis -LA2.4 -refusing NS #FEN -not on fluids at the moment -lytes wnl #PPx HSQ #dispo -ed obs Benito Ann MD- PGY2 Visit type - Emergency Visit Emergency Visit: Yes Care time: The patient presented to the Emergency Department on the above date and was hospitalized for further evaluation of their emergent condition. - New Patient This patient is new to me today: Yes Date on this admission: 04/14/18 - Critical Care Critical Care patient: No
--- NOTE | 2018-04-14 06:30 | PN ---
Teaching Attending Note Name of Resident: Benito Ann ATTENDING PHYSICIAN STATEMENT I saw and evaluated the patient. I reviewed the resident's note and discussed the case with the resident. I agree with the resident's findings and plan as documented. 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 She is presenting to the ER with a CC of being found in a parking garage by her place of residence and was found to be cold. Initially she refused treatment but after speaking to our team will allow lab draws and fluids. She will not provide a meaningful history for us but does agree that she stopped taking her medicines with suicidal intent and verbalized that she wouldnt mind if she was hurt from not taking her meds. Difficult to completely assess. Please see resident and ER documentation for additional history. Slightly elevated lactate on admit labs but then refused fluids and I am told nobody was able to get a line. Tox screen pending. She told me she stopped taking all of her home medications ROS couldnt be obtained PMH and PSH obtained from old records, could not be confirmed with patient FH couldn't be confirmed with patient Social Hx positive for difficult social situation in regards to potential psych issues. OBJECTIVE: Labs and VS reviewed NAD, resting in bed, potential passive SI Questionable hallucinations (auditory), poor thought progression, thought content focused on how she doesn't deserve medical care CN2-12 grossly intact, sensorium intact, motor intact in all limbs Cannot participate in a more focused neuro examination. NT ND +BS No new wounds seen on skin assessment but patient did not want to be examined, in particular. Difficult examination Labs reviewed; MCV low, lactate 2.4, no white count, negative urine preg. Toxicology pending now that she allowed it to get drawn. ASSESSMENT AND PLAN: Mrs. Chisholm is a 47 y/o AAF presenting with psychotic sx and potential SI. Patient of Dr. Rivera but on ED observation so monitoring on the medicine service. 1) Possible SI -Made some comments arising suspicion; place on 1:1 and obtain psychiatric clearance -Check toxicology (utox, salycilates, APAP). 2) Possible psychosis -Had drug induced psychosis from prednisone before, schizophrenia documented in chart. -Due to meds or lupus (she said not taking medications but unreliable historian ) vs. organic psych disorder -Holding off medications now as she may not have been taking any of her home medications -Further management per psych; should medication adjustments need to be made for the Lupus 3) History of lupus -States not taking meds; once cleared by psych will restart home regimine. Followup with PCP and rheum -If lupus psychosis would need rheum consult -No s/s adrenal insufficiency 4) Chronic OM -No acute issues, monitor and OP followup. Examine when she will permit 5) Microcytosis with history of +FOBT 2016 -Checking iron studies; needs followup with PCP for consideration of OP colonoscopy. H/H normal. ED obs; if needed covert to inpatient (Pt. of Dr. Rivera) Full Code Steam Gigger: Psychiatry; appreciate input.
[2018-04-14] MEDS ORDERED: HEPARIN NA (PORCINE) 5,000 UNITS/ML 1ML VIAL ONE ×2 (06:31→22:46)
[2018-04-14] MEDS ORDERED: LORazepam 2 MG/ML SDV VIAL ONE (06:46)
[2018-04-14] MEDS ORDERED: HALOPERIDOL LACTATE 5 MG/ML ONE (06:46)
[2018-04-14] MEDS ORDERED: HALOPERIDOL LACTATE 5 MG/ML IM ONE (06:46)
[2018-04-14 07:37] LABS: ANISOCYTOSIS 3+
--- NOTE | 2018-04-14 11:39 | EKG ---
Test Reason : Blood Pressure : / mmHG Vent. Rate : 101 BPM Atrial Rate : 101 BPM P-R Int : 126 ms QRS Dur : 094 ms QT Int : 368 ms P-R-T Axes : 015 056 -09 degrees QTc Int : 477 ms POOR DATA QUALITY, INTERPRETATION MAY BE ADVERSELY AFFECTED SINUS TACHYCARDIA ABNORMAL QRS-T ANGLE, CONSIDER PRIMARY T WAVE ABNORMALITY ABNORMAL ECG WHEN COMPARED WITH ECG OF 17-MAR-2017 12:33, T WAVE INVERSION NOW EVIDENT IN INFERIOR LEADS Confirmed by POOJA MONSALVE MD ([id number]) on 04/14/2018 11:39:00 AM Referred By: Confirmed By:POOJA MONSALVE MD
[2018-04-14 13:07] LABS: VENOUS PC02 44.3 mmHg (38-52); VENOUS PH 7.36 (7.32-7.42); VENOUS PO2 27.4 mmHg (28-48)
--- NOTE | 2018-04-14 13:09 | PN ---
Physical Exam: SUBJECTIVE: Patient seen and examined in the ER. Was able to state her name, birthday, and where she was- however, she did not know the day or date. patient states she was feeling down and sad and she was not eating hence why she was in the hospital. however, patient currently not having any suicidal ideations. she states that for the past few days she hasn't felt like eating or drinking and has not been consistent with her meds. she is amenable to having IV fluids as she was not agreeable before. OBJECTIVE: Vital Signs Period Temp Pulse Resp BP Sys/Pena Pulse Ox Last 24 Hr 98.1 F-98.6 F 105 18 99-133/71-72 98 GENERAL: The patient is awake, alert, not making eye contact EYES: darting, dilated pupils, not making eye contact NECK: no JVD, no lymphadenopathy LUNGS: CTA B/l; no rales, rhonchi or wheezing. HEART: Regular rate and rhythm, S1, S2 without murmur, rub or gallop. ABDOMEN: Soft, nontender, nondistended, normoactive bowel sounds, no guarding, no rebound, no hepatosplenomegaly, no masses. EXTREMITIES: 2+ pulses, warm, well-perfused, no edema. NEUROLOGICAL: Cranial nerves II through XII grossly intact. Normal speech, gait not observed. PSYCH: no longer having suicidal ideation but admits to being "down" SKIN: Warm, dry, normal turgor, no rashes or lesions noted Laboratory Results - last 24 hr 04/14/18 04/14/18 04/14/18 01:10 EST 01:10 EST 01:10 EST WBC 7.7 RBC 5.34 H Hgb 11.7 Hct 35.6 D MCV 66.7 L MCH 21.9 L MCHC 32.9 RDW 22.5 H Plt Count 312 D MPV 9.6 Absolute Neuts (auto) 6.7 Neutrophils % 87.1 H D Lymphocytes % 6.7 L D Monocytes % 6.1 Eosinophils % 0.0 D Basophils % 0.1 Nucleated RBC % 0 Hypochromia 3+ Anisocytosis 3+ Microcytosis 1+ Retic Count PT with INR 12.60 INR 1.07 PTT (Actin FS) 25.5 Sodium 140 Potassium 3.7 Chloride 104 Carbon Dioxide 24 Anion Gap 12 BUN 18 Creatinine 1.2 Creat Clearance w eGFR 48.36 Random Glucose 117 H Lactic Acid Calcium 9.7 Ferritin Total Bilirubin 0.7 AST 18 ALT 11 L Alkaline Phosphatase 66 Creatine Kinase Total Protein 8.4 H Albumin 4.4 Serum , Qual 04/14/18 04/14/18 04/14/18 01:10 EST 01:10 EST 08:18 WBC RBC Hgb Hct MCV MCH MCHC RDW Plt Count MPV Absolute Neuts (auto) Neutrophils % Lymphocytes % Monocytes % Eosinophils % Basophils % Nucleated RBC % Hypochromia Anisocytosis Microcytosis Retic Count 1.56 H PT with INR INR PTT (Actin FS) Sodium Potassium Chloride Carbon Dioxide Anion Gap BUN Creatinine Creat Clearance w eGFR Random Glucose Lactic Acid 2.4 H* Calcium Ferritin Total Bilirubin AST ALT Alkaline Phosphatase Creatine Kinase Total Protein Albumin Serum , Qual Negative 04/14/18 04/14/18 04/14/18 08:18 08:18 12:00 WBC RBC Hgb Hct MCV MCH MCHC RDW Plt Count MPV Absolute Neuts (auto) Neutrophils % Lymphocytes % Monocytes % Eosinophils % Basophils % Nucleated RBC % Hypochromia Anisocytosis Microcytosis Retic Count PT with INR INR PTT (Actin FS) Sodium Potassium Chloride Carbon Dioxide Anion Gap BUN Creatinine Creat Clearance w eGFR Random Glucose Lactic Acid 1.1 Calcium Ferritin 11.4 Total Bilirubin AST ALT Alkaline Phosphatase Creatine Kinase 70 Cancelled Total Protein Albumin Serum , Qual Active Medications Generic Name Dose Route Start Last Admin Trade Name Freq PRN Reason Stop Dose Admin Heparin Sodium (Porcine) 5,000 unit 04/14/18 03:15 04/14/18 11:05 Heparin - SQ Not Given TID [facility] ASSESSMENT/PLAN: Pt is a 47 y/o F with PMMH lupus, depression, CKD, and anemia who was BIBA unresponsive after being found on the ground in a parking lot. #Suicidal Ideations patient no longer having suicidal ideations -pending utox and u/a -holding depression meds for now -need [facility] evaluation and clearance -vitamin B12 and TSH pending # Lactic Acidosis -repeat LA came back at 1.1 -patient has received 2L of bolus thur far -will continue to bolus patient -monitor fluid status #Lupus -restart home dose of prednisone and hydroxychloroquine -will call PMD tomorrow to confirm F/E/N -NS 1L -monitor electrolytes DVT PPX: heparin SQ
[2018-04-14] MEDS ORDERED: SODIUM CHLORIDE 0.9% 500 ML INFUS.BAG IV ONE (14:53)
--- NOTE | 2018-04-14 15:29 | PN ---
Teaching Attending Note Name of Resident: Marcie Hawkins ATTENDING PHYSICIAN STATEMENT I saw and evaluated the patient. I reviewed the resident's note and discussed the case with the resident. I agree with the resident's findings and plan as documented. SUBJECTIVE:states she just feeling generalized weakness and tired. not much of an appetite. states she remembers feeling weak at home and tripping and falling. has not been eating well the past few weeks only eating sherbert because she been feeling depressed. states she has no desire to or active plans to hurt herself or anyone else. has attempted suicide many years ago. states she has not been consistent with her medications since September and takes them only occasionally except her prednisone and MTX which she is compliant with. her PMD is unaware she stopped her medications and saw him a few months ago. Denies CP, SOB, fever, chills, cough, N/V/C/D, hallucinations, no recent changes to her medication (specifically steroid dose) or recent infections OBJECTIVE: Last Vital Signs Temp Pulse Resp BP Pulse Ox 98.1 F 105 H 18 99/71 98 04/14/18 10:32 04/14/18 10:32 04/14/18 10:32 04/14/18 10:32 04/14/18 10:32 General lethargic, flat affect, A&O x3 HEENT dilated pupils, dry oral mucosa CV S1 S2 RRR no murmur/rub/gallop Lungs CTA B/L no wheezing/rales/rhonchi Abdomen soft NT/ND obese Extremities no pedal edema ASSESSMENT AND PLAN: 47yo F wtih PMH SLE, depression and CKD brought to the ER when she was found on the floor at home with concern for suicidal thoughts 1. Suicidal idealizations- no active thoughts of suicide or homicide. no plans or desire to hurt herself. awaiting psych clearance on 1:1 observation. 2. ACute toxic metabolic encephalopathy- has hx of steroid induced psychosis. with prolonged hospitalization a year ago where she was intubated with GCS of 3. and was treated for pressure ulcers. currently appears severely dehydrated. dilated pupils. received 2L NS in the ER will bolus her more IVF. check UA and Utox, TSH, vitamin B12, 3. SLE- will need to verify home meds and re-start. takes MTX on fridays ( claims she took it) 4. Depression- hold medication if she is not consistent with it. will have psych determine if can be re-started 5. lactic acidosis- likely due to dehydration. repeat 6. DVT ppx- hep sq
--- NOTE | 2018-04-14 18:25 | CON.PSY ---
Psychiatry Consult Chief Complaint: *I am [id number] very [id number], i felt suicidal today. Patient has a history of suicide attept and psych Hospitalization in the past. 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 Therre were none. Symptoms: reports: Suicidality, Self destructive thoughts, Disorganized/ Disruptive Thoughts, Hallucinations - Previous Psychiatric Treatment Outpatient: Less than 6 mos ago Inpatient: None, 2 or more prior admissions - Previous Substance Abuse Treatment Outpatient: None - Reason for Previous Treatment Reason for Previous Treatment: Major Depression, Psychotic Episode - Current Medications Current Medications: Active Medications Heparin Sodium (Porcine) (Heparin -) 5,000 unit SQ TID MOI Last Admin: 04/14/18 15:00 Dose: 5,000 unit Hydroxychloroquine Sulfate (Plaquenil -) 400 mg PO DAILY MOI Sodium Chloride (Normal Saline -) 1,000 mls @ 125 mls/hr IV ASDIR MOI Prednisone (Deltasone -) 40 mg PO DAILY MOI - Allergies Allergies: Allergies Allergy/AdvReac Type Severity Reaction Status Date / Time methotrexate Allergy Unknown Vomiting Verified 03/12/17 18:53 metoclopramide HCl Allergy Unknown dystonia Verified 03/12/17 18:52 [From Reglan] - Current Living Status Usual Living Arrangement: Alone - Current Mental Status Evaluation Appearance: Disheveled Attitude: Suspicious - Affect Affect: Flat Appropriateness: Not Appropriate - Mood Mood: Depressed - Speech/Language Expressive: Delayed - Psychomotor Activity Psychomotor Activity: Slowed - Thought Process Thought Process: Loosening of Associations - Thought Content Hallucinations: Present Type: Auditory Type: Persectory - Self Perception Self Perception: Depersonalization - Cognition Attention: Alert Orientation: Time Memory, Immediate Recall: Intact Memory, Short Term: 2/3 Memory, Remote with Promptin/3 - Concentration Serial Sevens Intact: No Simple Calculations Intact: No - Abstraction Proverb Interpretation: Impaired Judgement: Moderately Impaired - Insight Insight: Impaired - Impulse Control Impulse Control: Moderately Impaired - Suicidal Ideation Suicidal Ideation: Yes - Homicidal Ideation Homicidal Ideation: No Assessment/Plan 1) Continue with 1:1 2) zyprexa 5mg po bvid. 3) Patient needs inpatient admission for acute Psychosis and suicidal thoughts.
[2018-04-14] MEDS: SODIUM CHLORIDE 1,000 ML IV SCH (19:15)
[2018-04-14] MEDS ORDERED: OLANZapine 10 MG TABLET ONE (22:46)
[2018-04-15] MEDS: OLANZapine 5 MG TABLET PO SCH ×3 (00:18→21:23)
[2018-04-15] MEDS: HEPARIN NA (PORCINE) 5,000 UNITS/ML 1ML VIAL SQ SCH ×3 (06:17→21:23)
[2018-04-15] MEDS ORDERED: morphine SULFATE 4 MG/ML VIAL IVPUSH PRN (08:12)
[2018-04-15] MEDS ORDERED: PT OWN MED DRAWER 7, Y5N ONE ×2 (09:47→11:22)
[2018-04-15] MEDS: predniSONE 20 MG TABLET (UD) PO SCH (09:51)
[2018-04-15] MEDS: SODIUM CHLORIDE 1,000 ML IV SCH ×3 (11:26→20:26)
[2018-04-15] MEDS: HYDROXYCHLOROQUINE SO4 200 MG TABLET (FP) PO SCH (12:18)
--- NOTE | 2018-04-15 13:36 | PN ---
Teaching Attending Note Name of Resident: Marcie Hawkins ATTENDING PHYSICIAN STATEMENT I saw and evaluated the patient. I reviewed the resident's note and discussed the case with the resident. I agree with the resident's findings and plan as documented. SUBJECTIVE:feels overall better today but remains weak. states appetite has improved. denies Cp, SOB, fver, chills, N/V/C/D OBJECTIVE: Last Vital Signs Temp Pulse Resp BP Pulse Ox 98.1 F 103 H 20 159/102 H 100 04/15/18 09:30 04/15/18 09:30 04/15/18 09:30 04/15/18 09:30 04/14/18 18:52 General flat affect, resting tremor of the head HEENT moist oral mucosa CV S1 S2 RRR no murmur/rub/gallop Lungs CTA B/L no wheezing/rales/rhonchi Abdomen soft NT/ND obese Extremities no pedal edema ASSESSMENT AND PLAN: 47yo F wtih PMH SLE, depression and CKD brought to the ER when she was found on the floor at home with concern for suicidal thoughts 1. Suicidal idealizations-was evaluated by psych last night and determined threat to herself. will need inpatient psych. cont 1;1 observtion. on zyprexa. no cords or phones in the room. no real silverware. 2. ACute toxic metabolic encephalopathy- has hx of steroid induced psychosis. clinically improved. attempt to get collateral information from PMD or family. will reduced IVF to 100cc/H. can likely d/c if appetite continues to improve. awaiting UA/Utox. TSH/VIt B12 negative 3. Tarditive dyskinesia- likely due to initiation of zprexa. plqyenil. will hold. call psych to evaluate 3. SLE- no signs of acute flare. MTX on fridays. Pred 40mg daily. 4. Depression- hold medication if she is not consistent with it. will have psych determine if can be re-started 5. lactic acidosis- likely due to dehydration. resolved 6. DVT ppx- hep sq 7. medically stable at this time. would benefit from inpatient psych evaluation and treatment
[2018-04-15 14:12] LABS: URINE APPEARANCE CLEAR; URINE BILIRUBIN NEGATIVE (<2.0 mg/dL); URINE COLOR LTYELLOW; URINE GLUCOSE (UA) NEGATIVE (NEGATIVE); URINE KETONE TRACE (NEGATIVE); URINE LEUK ESTERASE NEGATIVE (NEGATIVE); URINE NITRITE NEGATIVE (NEGATIVE); URINE PROTEIN NEGATIVE (NEGATIVE); URINE UROBILINOGEN NEGATIVE mg/dL (0.2-1.0)
--- NOTE | 2018-04-15 14:22 | PN ---
Physical Exam: SUBJECTIVE: Patient seen and examined at bedside. patient appears very anxious and has a resting tremor of her head. states she is also having terrible joint pains, she denies any CP/SOB/N/V fevers or chills. was able to state her name, age, date and where she was. states she is feeling a little bit better and that her appetite has improved. OBJECTIVE: Vital Signs Period Temp Pulse Resp BP Sys/Pena Pulse Ox Last 24 Hr 98.0 F-98.2 F 72-103 17-20 118-159/70-102 98-100 GENERAL: The patient is awake, alert, and fully oriented, resting head tremor EYES: dilated pupils NECK: no JVD, no lymphadenopathy LUNGS: CTA B/L no rales, rhonchi or wheezing. HEART: Regular rate and rhythm, S1, S2 without murmur, rub or gallop. ABDOMEN: Soft, nontender, nondistended, normoactive bowel sounds, no guarding, no rebound, no hepatosplenomegaly, no masses. EXTREMITIES: 2+ pulses, warm, well-perfused, no edema. SKIN: Warm, dry, normal turgor, no rashes or lesions noted Laboratory Results - last 24 hr 04/15/18 06:30 Vitamin B12 486 TSH 1.64 Active Medications Generic Name Dose Route Start Last Admin Trade Name Freq PRN Reason Stop Dose Admin Heparin Sodium (Porcine) 5,000 unit 04/14/18 03:15 04/15/18 13:37 Heparin - SQ 5,000 unit TID MOI Administration Hydroxychloroquine Sulfate 400 mg 04/15/18 10:00 04/15/18 12:18 Plaquenil - PO 400 mg DAILY MOI Administration Sodium Chloride 1,000 mls @ 100 mls/hr 04/15/18 13:58 Normal Saline - IV ASDIR MOI Morphine Sulfate 2 mg 04/15/18 08:12 04/15/18 09:50 Morphine Sulfate IVPUSH 2 mg Q6H PRN Administration PAIN LEVEL 4 - 6 Olanzapine 5 mg 04/14/18 22:00 04/15/18 09:52 Zyprexa - PO 5 mg BID MOI Administration Prednisone 40 mg 04/15/18 10:00 04/15/18 09:51 Deltasone - PO 40 mg DAILY MOI Administration ASSESSMENT/PLAN: Pt is a 47 y/o F with PMMH lupus, depression, CKD, and anemia who was BIBA unresponsive after being found on the ground in a parking lot. #Suicidal Ideations patient still endorsing suicidal ideations -pending utox and u/a -holding depression meds for now -need inpatient psych treatment- placement pending -vitamin B12 and TSH within normal limits -psych recs appreciated- holding zyprexa for now patient developing EPS # Lactic Acidosis -repeat LA came back at 1.1 -patient has received 2L of bolus thur far -will continue to bolus patient -monitor fluid status #Lupus - c/w prednisone 40mg daily -holding hydroxychloroquine F/E/N -NS 1L -monitor electrolytes -regular diet DVT PPX: heparin SQ Problem List - Problems (1) Depression Code(s): F32.9 - MAJOR DEPRESSIVE DISORDER, SINGLE EPISODE, UNSPECIFIED (2) Lupus (systemic lupus erythematosus) Code(s): M32.9 - SYSTEMIC LUPUS ERYTHEMATOSUS, UNSPECIFIED Qualifiers: Systemic lupus erythematosus type: unspecified Systemic lupus erythematosus organ involvement: unspecified Qualified Code(s): M32.9 - Systemic lupus erythematosus, unspecified (3) Unresponsive Code(s): R41.89 - OTH SYMPTOMS AND SIGNS W COGNITIVE FUNCTIONS AND AWARENESS Visit type - Emergency Visit Emergency Visit: Yes ED Registration Date: 04/15/18 Care time: The patient presented to the Emergency Department on the above date and was hospitalized for further evaluation of their emergent condition. - New Patient This patient is new to me today: No - Critical Care Critical Care patient: No
[2018-04-15 14:33] LABS: COCAINE, UR NEGATIVE ng/ml (CUTOFF=300); METHADONE, UR NEGATIVE ng/ml (CUTOFF=300); PHENCYCLIDINE,URINE NEGATIVE ng/ml (CUTOFF=25); URINE AMPHETAMINES NEGATIVE ng/ml (CUTOFF=500); URINE BARBITURATES NEGATIVE ng/ml (CUTOFF=200)
[2018-04-15 14:53] LABS: OPIATES, URI POSITIVE ng/ml (CUTOFF=300); URINE BENZODIAZEPINES POSITIVE ng/ml (CUTOFF=200)
[2018-04-16] MEDS: HEPARIN NA (PORCINE) 5,000 UNITS/ML 1ML VIAL SQ SCH ×2 (05:51→13:22)
[2018-04-16 06:07] LABS: SERUM IRON SATURATION 5 % (15-55); TOTAL IRON BINDING CAPACITY 351 ug/dL (250-450); UIBC 335 ug/dL (131-425)
[2018-04-16] MEDS: SODIUM CHLORIDE 1,000 ML IV SCH (06:25)
[2018-04-16 10:59] LABS: HEMATOCRIT 29.8 % (32.4-45.2); HEMOGLOBIN 9.8 GM/dL (10.7-15.3); MCH 21.9 pg (25.7-33.7); MEAN CELL VOLUME 66.4 fl (80-96); MEAN PLT VOLUME 9.2 fl (7.5-11.1); PLATELET COUNT 247 K/MM3 (134-434); RBC 4.49 M/mm3 (3.60-5.2); RDW 22.7 % (11.6-15.6); WHITE BLOOD COUNT 5.2 K/mm3 (4.0-10.0)
[2018-04-16] MEDS ORDERED: PT OWN MED DRAWER 7, Y5N ONE (11:32)
[2018-04-16] MEDS: predniSONE 20 MG TABLET (UD) PO SCH (11:34)
[2018-04-16] MEDS: HYDROXYCHLOROQUINE SO4 200 MG TABLET (FP) PO SCH (11:34)
[2018-04-16 12:13] LABS: ALBUMIN 3.7 g/dl (3.4-5.0); ALK PHOS 52 U/L (45-117); ANION GAP 11 MMOL/L (8-16); BILIRUBIN,TOTAL 0.6 mg/dL (0.2-1); BLOOD UREA NITROGEN 6 mg/dL (7-18); CALCIUM 8.4 mg/dL (8.5-10.1); CHLORIDE 109 mmol/L (98-107); CO2 25 mmol/L (21-32); CREATININE 0.7 mg/dL (0.55-1.3); GLUCOSE,RANDOM 85 mg/dL (74-106); SGOT/AST 13 U/L (15-37); SGPT/ALT 14 U/L (13-61); SODIUM 144 mmol/L (136-145); TOT PROT 6.7 g/dl (6.4-8.2)
[2018-04-16 12:51] LABS: POTASSIUM 2.9 mmol/L (3.5-5.1)
[2018-04-16] MEDS: KCL 10 MEQ IVPB 10 MEQ/100 ML INFUS.BAG IVPB SCH ×3 (13:20→15:36)
--- NOTE | 2018-04-16 14:38 | CON.NEURO ---
Consult - Past Medical History DIRECTOR ZONE: Yes: Other (SLE) Psych: Yes: Depression (questionable , denies suicidal ideation at present, or suicide attempt with prescribed medications, ) Rheumatology: Yes: Lupus - Alcohol/Substance Use Hx Alcohol Use: No History of Substance Use: reports: Prescription - Smoking History Smoking history: Never smoked Have you smoked in the past 12 months: No - Social History Usual Living Arrangement: Alone Home Medications - Allergies Allergies/Adverse Reactions: Allergies Allergy/AdvReac Type Severity Reaction Status Date / Time methotrexate Allergy Unknown Vomiting Verified 03/12/17 18:53 metoclopramide HCl Allergy Unknown dystonia Verified 03/12/17 18:52 [From Reglan] - Home Medications Home Medications: Ambulatory Orders Potassium Chloride [K-Dur -] 40 meq PO DAILY@0800 #60 tablet.er 07/13/17 Folic Acid 3 mg PO DAILY #30 tablet 07/26/17 Hydroxychloroquine Sulfate [Plaquenil] 400 mg PO DAILY #60 tablet 07/26/17 Furosemide [Lasix] 20 mg PO DAILY 04/14/18 Physical Exam-Neuro Vital Signs: Vital Signs Temperature 99.1 F 04/16/18 06:00 Pulse Rate 92 H 04/16/18 06:00 Respiratory Rate 18 04/16/18 06:00 Blood Pressure 160/97 04/16/18 06:00 O2 Sat by Pulse Oximetry (%) 100 04/15/18 22:00 Labs: CBC, BMP 04/16/18 10:30 04/16/18 10:30 INR, PTT INR 1.07 (0.83-1.09) 04/14/18 01:10 EST Assessment/Plan cc Mental status change HPI 47 year old female, history of lupus, depression, ckd, anemia . She came to hospital when she became unresponsive. She is being treated for severe depression and suicidal ideation. She has been staring and not cooperative and not taking medication. She is not talking and refusing to eat. She has ct scan done and it was normal, and her Serum K was normal. THere is no seizure like activity, headhace or any focal neurological deficit PAST MEDICAL HISTORY: as above PAST SURGICAL HISTORY: Social History, ROS, Family history reviewed in chart Allergies methotrexate Allergy (Unknown, Verified 03/12/17 18:53) Vomiting metoclopramide HCl [From Reglan] Allergy (Unknown, Verified 03/12/17 18:52) dystonia HOME MEDICATIONS: Home Medications Medication Instructions Recorded Acetaminophen 650 mg PO PRN 07/05/17 Ipratropium/Albuterol Sulfate 3 ml IH PRN 07/05/17 [Iprat-Albut 0.5-3(2.5) mg/3 ml] Cefepime [Maxipime (Restricted To 2 gm IVPB Q8H-IV vial 07/13/17 Id) -] Diazepam [Valium] 5 mg PO BID #60 tablet MDD 2 07/13/17 Diphenhydramine HCl [Benadryl 25 mg PO Q6H PRN #120 capsule 07/13/17 Capsule -] Docusate Sodium [Colace -] 300 mg PO HS #30 capsule 07/13/17 Hydroxychloroquine So4 [Plaquenil 400 mg PO DAILY tablet 07/13/17 -] Morphine *Immediate Release* [Msir 15 mg PO Q4H PRN #180 tab MDD 6 07/13/17 -] Morphine *Sr* [MS Contin -] 30 mg PO BID #60 tablet.sa MDD 2 07/13/17 Mupirocin Cream [Bactroban 2% 1 applic TP BID #1 tube 07/13/17 Cream -] Pantoprazole Sodium [Protonix -] 40 mg PO BID tablet.ec 07/13/17 Potassium Chloride [K-Dur -] 40 meq PO DAILY@0800 #60 tablet.er 07/13/17 Quetiapine Fumarate [Seroquel -] 50 mg PO HS tablet 07/13/17 Topiramate [Topamax -] 25 mg PO HS tablet 07/13/17 Vancomycin 1,000 mg IVPB BID@0100,1300 vial 07/13/17 Clotrimazole/Betamet Diprop 1 applic TP BID #45 g 07/25/17 [Lotrisone -] Diphenhydramine HCl [Benadryl 50 mg PO Q6H PRN #240 capsule 07/25/17 Capsule -] Nystatin Powder [Nystop Powder -] 1 applic TP DAILY #1 bottle 07/25/17 hydrOXYzine HCL [Atarax -] 50 mg PO TID PRN #240 tablet 07/25/17 Aa/[place]/Arg/C/Zn/Cu 30 ml PO TID #90 liquid 07/26/17 [Lps Critical Care Liquid] Ascorbate Calcium [Vitamin C] 500 mg PO DAILY #30 tablet 07/26/17 Cane 1 each MC PRN #1 each 07/26/17 Diazepam [Valium] 5 mg PO BID #60 tablet MDD 2 07/26/17 Diphenhydramine [Benadryl -] 50 mg PO Q6H PRN #120 capsule 07/26/17 Docusate Sodium [Colace -] 100 mg PO HS #30 tab MDD 1 07/26/17 Folic Acid 3 mg PO DAILY #30 tablet 07/26/17 Furosemide [Lasix] 40 mg PO BID #60 tablet 07/26/17 Hydroxychloroquine Sulfate 400 mg PO DAILY #60 tablet 07/26/17 [Plaquenil] Hydroxyzine HCl 50 mg PO Q6H PRN #120 tablet 07/26/17 Morphine *Immediate Release* [Msir 15 mg PO Q4H PRN #180 tab MDD 6 07/26/17 -] Morphine *Sr* [MS Contin -] 30 mg PO Q12H #60 tablet.sa MDD 2 07/26/17 Pantoprazole Sodium [Protonix -] 40 mg PO BID #60 tab MDD 2 07/26/17 Potassium Chloride 40 meq PO DAILY #30 tablet.er 07/26/17 Quetiapine Fumarate [Seroquel -] 50 mg PO HS #30 tablet 07/26/17 Topiramate 25 mg PO HS #30 tablet 07/26/17 Neurological Examiantion Alert and staring, she was able to open her mouth on asking, She is refusing to speak, no neck stiffness VSS febrile on visual threat she is blinking no lifting her hand it is falling slowly, tone is normal reflex are generalized diminished pupils is reactive, no face asymmetry ct head is normal except K , electrolyte is normal Assessment: Acute psychosis due to Mood disorder, Clinically unlikley to be meningitis, stroke or seizure activity. There is no metabolic abnormality identiifed. Plan: treatment as per psych, COnsider ECT - will continue to follow, if do not improve, consider mri and eeg, there is no suspician for stroke or status epilepticus at this time Thnaking you so much juliette Allen MD
--- NOTE | 2018-04-16 14:41 | PN ---
Physical Exam: SUBJECTIVE: Patient seen and examined at beside this morning. Patient was non- verbal, non- response to painful stimuli, darting pupils with rhythmic head motions. Held patients zyprexa as she was starting to have these rhythmic head motions and was not eating. OBJECTIVE: Vital Signs Period Temp Pulse Resp BP Sys/Pena Pulse Ox Last 24 Hr 98.0 F-99.1 F 92-97 18-18 147-160/88-97 100 GENERAL: The patient is awake, non-verbal EYES:dialted pupils, not blinking upon light being shone . NECK: no JVD, no lymphadenopathy LUNGS: CTA B/L; no rales, rhonchi or wheezing. HEART: Regular rate and rhythm, S1, S2 without murmur, rub or gallop. ABDOMEN: Soft, nontender, nondistended, normoactive bowel sounds, no guarding, no rebound, no hepatosplenomegaly, no masses. EXTREMITIES: 2+ pulses, warm, well-perfused, no edema. NEUROLOGICAL: no response to painful stimuli PSYCH: Normal mood, normal affect. SKIN: Warm, dry, normal turgor, no rashes or lesions noted Laboratory Results - last 24 hr 04/14/18 04/15/18 04/15/18 01:10 EST 06:30 11:10 WBC RBC Hgb Hct MCV MCH MCHC RDW Plt Count MPV Sodium Potassium Chloride Carbon Dioxide Anion Gap BUN Creatinine Creat Clearance w eGFR Random Glucose Calcium Iron 16 L TIBC 351 Iron Saturation 5 L Total Bilirubin AST ALT Alkaline Phosphatase Total Protein Albumin Salicylates < 1.7 L Opiates Screen Positive A* Acetaminophen < 2.0 L Benzodiazepines Screen Positive A* Alcohol, Quantitative < 3.0 04/16/18 04/16/18 10:30 10:30 WBC 5.2 RBC 4.49 Hgb 9.8 L Hct 29.8 L D MCV 66.4 L MCH 21.9 L MCHC 33.0 RDW 22.7 H Plt Count 247 D MPV 9.2 Sodium 144 Potassium 2.9 L* Chloride 109 H Carbon Dioxide 25 Anion Gap 11 BUN 6 L Creatinine 0.7 Creat Clearance w eGFR > 60 Random Glucose 85 Calcium 8.4 L Iron TIBC Iron Saturation Total Bilirubin 0.6 AST 13 L ALT 14 Alkaline Phosphatase 52 Total Protein 6.7 Albumin 3.7 Salicylates Opiates Screen Acetaminophen Benzodiazepines Screen Alcohol, Quantitative Active Medications Generic Name Dose Route Start Last Admin Trade Name Rajwinder PRN Reason Stop Dose Admin Heparin Sodium (Porcine) 5,000 unit 04/14/18 03:15 04/16/18 13:22 Heparin - SQ 5,000 unit TID MOI Administration Hydroxychloroquine Sulfate 400 mg 04/15/18 10:00 04/16/18 11:34 Plaquenil - PO 400 mg DAILY MOI Administration Sodium Chloride 1,000 mls @ 100 mls/hr 04/15/18 13:58 04/16/18 06:25 Normal Saline - IV 100 mls/hr ASDIR MOI Administration Potassium Chloride 10 meq in 100 mls @ 100 mls/hr 04/16/18 13:40 04/16/18 14: 25 Potassium Chloride 10 Meq Premix Ivpb - IVPB 04/16/18 16:39 100 mls/hr Q60M MOI Administration Morphine Sulfate 2 mg 04/15/18 08:12 04/15/18 09:50 Morphine Sulfate IVPUSH 2 mg Q6H PRN Administration PAIN LEVEL 4 - 6 Olanzapine 5 mg 04/14/18 22:00 04/15/18 21:23 Zyprexa - PO 5 mg BID MOI Administration Prednisone 40 mg 04/15/18 10:00 04/16/18 11:34 Deltasone - PO 40 mg DAILY MOI Administration ASSESSMENT/PLAN: t is a 47 y/o F with PMMH lupus, depression, CKD, and anemia who was BIBA unresponsive after being found on the ground in a parking lot. #Suicidal Ideations patient still endorsing suicidal ideations -pending utox and u/a -holding depression meds for now -need inpatient psych treatment- placement pending -vitamin B12 and TSH within normal limits -psych recs appreciated- holding zyprexa for now patient developing EPS # change in neurological status possible 2/2 electrolyte disturbance vs. medication side effect -Dr. Allen consulted; recs appreciated -Head CT done- no acute pathology shown -alcohol level less than 3 -potassium low at 2.9-repleted -holding zyprexa #Lupus - c/w prednisone 40mg daily -holding hydroxychloroquine F/E/N -NS 1L -monitor electrolytes -regular diet DVT PPX: heparin SQ Problem List - Problems (1) Depression Code(s): F32.9 - MAJOR DEPRESSIVE DISORDER, SINGLE EPISODE, UNSPECIFIED (2) Lupus (systemic lupus erythematosus) Code(s): M32.9 - SYSTEMIC LUPUS ERYTHEMATOSUS, UNSPECIFIED Qualifiers: Qualified Code(s): M32.9 - Systemic lupus erythematosus, unspecified (3) Unresponsive Code(s): R41.89 - OTH SYMPTOMS AND SIGNS W COGNITIVE FUNCTIONS AND AWARENESS Visit type - Emergency Visit Emergency Visit: Yes ED Registration Date: 04/15/18 Care time: The patient presented to the Emergency Department on the above date and was hospitalized for further evaluation of their emergent condition. - New Patient This patient is new to me today: No - Critical Care Critical Care patient: No
[2018-04-16 17:17] VITALS: TEMP 99.2
[2018-04-16 17:52] VITALS: BP 148/94; PULSE 116
--- NOTE | 2018-04-16 18:24 | PN ---
Teaching Attending Note Name of Resident: Marcie Hawkins ATTENDING PHYSICIAN STATEMENT I saw and evaluated the patient. I reviewed the resident's note and discussed the case with the resident. I agree with the resident's findings and plan as documented. SUBJECTIVE: OBJECTIVE: Vital Signs Period Temp Pulse Resp BP Sys/Pena Pulse Ox Last 24 Hr 98.0 F-99.2 F 92-116 18-18 147-161/91-97 100 Laboratory Results - last 24 hr 04/14/18 04/15/18 04/16/18 01:10 EST 06:30 10:30 WBC 5.2 RBC 4.49 Hgb 9.8 L Hct 29.8 L D MCV 66.4 L MCH 21.9 L MCHC 33.0 RDW 22.7 H Plt Count 247 D MPV 9.2 Sodium Potassium Chloride Carbon Dioxide Anion Gap BUN Creatinine Creat Clearance w eGFR Random Glucose Calcium Iron 16 L TIBC 351 Iron Saturation 5 L Total Bilirubin AST ALT Alkaline Phosphatase Total Protein Albumin Salicylates < 1.7 L Acetaminophen < 2.0 L Alcohol, Quantitative < 3.0 04/16/18 10:30 WBC RBC Hgb Hct MCV MCH MCHC RDW Plt Count MPV Sodium 144 Potassium 2.9 L* Chloride 109 H Carbon Dioxide 25 Anion Gap 11 BUN 6 L Creatinine 0.7 Creat Clearance w eGFR > 60 Random Glucose 85 Calcium 8.4 L Iron TIBC Iron Saturation Total Bilirubin 0.6 AST 13 L ALT 14 Alkaline Phosphatase 52 Total Protein 6.7 Albumin 3.7 Salicylates Acetaminophen Alcohol, Quantitative ASSESSMENT AND PLAN:
[2018-04-16 18:35] LABS: ANION GAP 10 MMOL/L (8-16); BLOOD UREA NITROGEN 5 mg/dL (7-18); CALCIUM 8.9 mg/dL (8.5-10.1); CHLORIDE 109 mmol/L (98-107); CO2 24 mmol/L (21-32); CREATININE 0.8 mg/dL (0.55-1.3); GLUCOSE,RANDOM 124 mg/dL (74-106); POTASSIUM 3.6 mmol/L (3.5-5.1); SODIUM 142 mmol/L (136-145)
[2018-04-16] MEDS ORDERED: ARIPiprazole 5 MG TABLET (FP) PO SCH (22:00)
== END 2018-04-16 18:22 | disposition short-term general hospital (02) | DRG 885 ==
LOC: JER 23:26 → JERBED 04-14 02:42 → J8W 04-14 23:46 → OBSVTOIN 04-15 10:55
PROVIDERS: ADMIT Internal Medicine; ATTEND Internal Medicine
DX: F23 Brief psychotic disorder (principal); G92 Toxic encephalopathy; R45.851 Suicidal ideations; E87.2 Acidosis; M32.9 Systemic lupus erythematosus, unspecified; G24.01 Drug induced subacute dyskinesia; F33.3 Major depressive disorder, recurrent, severe with psychotic symptoms; T14.91XA Suicide attempt, initial encounter; T43.592A Poisoning by other antipsychotics and neuroleptics, intentional self-harm, initial encounter; E86.0 Dehydration; Y92.89 Other specified places as the place of occurrence of the external cause
CPT/HCPCS: 36415; 70450-TC; 71045-TC-FY; 80048; 80053; 80307; 81003; 82550; 82607; 82728; 82803; 83540; 83550; 83605; 84443; 84484; 84703; 85025; 85027; 85044; 85610; 85730; 87040; 93005; 93010; 99283-25; G0378; J1644; J7030

== ENCOUNTER 2018-11-21 13:50 | Inpatient (IN) | payer OTHER | END 2018-11-22 19:30 | disposition home or self-care (01) | LOC: JER 13:50 → J5S 11-22 09:54 → JERBED 21:49 ==

== ENCOUNTER 2019-02-10 11:16 | Inpatient (IN) | payer OTHER ==
--- NOTE | 2019-02-10 11:55 | PDOC ---
History of Present Illness - General Chief Complaint: SIRS, Suspected/Possible Stated Complaint: HEADACHE Time Seen by Provider: 02/10/19 11:32 - History of Present Illness Initial Comments: History limited 2/2 poor patient historian Ms. Chisholm is a 48 y/o female with PMH of lupus and schizophrenia, presenting today with "queasy feeling." Per home health caregiver, she arrived this morning and found the patient not acting like herself. Patient reports that she doesn't feel well and has had periumbilical abdominal pain for the past 3 days, without nausea or vomiting. Reports fever of 101/102 orally last week. When asked what is concerning her, patient states "nothing" and that "she does not feel like she needs to be in the hospital." Aide states that patient was feeling dizzy and had a headache, but patient denies at present. Denies chest pain, shortness of breath, dysuria, hematochezia. PMH: lupus, schizophrenia, denies hx of NV, stroke Meds: plaquenil FamHx: unobtainable Past History - Past Medical History Allergies/Adverse Reactions: Allergies Allergy/AdvReac Type Severity Reaction Status Date / Time methotrexate Allergy Unknown Vomiting Verified 02/10/19 11:29 metoclopramide HCl Allergy Unknown dystonia Verified 02/10/19 11:29 [From [facility]] Home Medications: Ambulatory Orders Duloxetine HCl [Cymbalta -] 60 mg PO DAILY 11/21/18 Hydroxychloroquine Sulfate [Plaquenil] 200 mg PO BID 11/21/18 Methotrexate Sodium/Pf [Methotrexate 25 mg/ml Vial] 0.6 ml SQ WEEKLY 11/21/18 Morphine Sulfate 15 mg PO Q6H 11/21/18 Quetiapine Fumarate [Seroquel -] 200 mg PO HS 11/21/18 Clindamycin [Cleocin -] 300 mg PO Q8H #21 capsule 11/22/18 Folic Acid 1 mg PO DAILY 11/22/18 Phenobarbital 60 mg PO TID 11/22/18 Prednisone 10 mg PO DAILY 11/22/18 Suvorexant [Belsomra] 20 mg PO HS 11/22/18 Diazepam [Valium] 5 mg PO DAILY 02/10/19 Mirtazapine 45 mg PO HS 02/10/19 Prednisone 5 mg PO DAILY 02/10/19 Risperidone 6 mg PO HS 02/10/19 Zolpidem Tartrate 10 mg PO HS 02/10/19 predniSONE [Deltasone -] 1 mg PO DAILY 02/10/19 Anemia: No Asthma: No Cancer: No Cardiac Disorders: Yes (stemi) CVA: No COPD: No CHF: No Dementia: No Diabetes: No GI Disorders: Yes (gerd) Disorders: No HTN: No Hypercholesterolemia: No Liver Disease: No Psychiatric Problems: Yes (anxiety, schizophrenia) Seizures: No Thyroid Disease: No - Surgical History Abdominal Surgery: No Appendectomy: Yes Cardiac Surgery: Yes ("heart surgery as per pt.) Cholecystectomy: No Lung Surgery: No Neurologic Surgery: No Orthopedic Surgery: Yes (l hip surgery for a bone infection) - Immunization History Immunization Up to Date: No - Suicide/Smoking/Psychosocial Hx Smoking History: Never smoked Have you smoked in the past 12 months: No If you are a former smoker, when did you quit?: 0 Cigars Per Day: 0 Information on smoking cessation initiated: No Hx Alcohol Use: No Drug/Substance Use Hx: No Substance Use Type: Prescribed Hx Substance Use Treatment: No Review of Systems - Review of Systems Comments:: ROS limited 2/2 poor patient historian GENERAL/CONSTITUTIONAL: Reports fever. No weakness._ HEAD, EYES, EARS, NOSE AND THROAT: No change in vision. No change in hearing. No sore throat._ CARDIOVASCULAR: No chest pain or shortness of breath_ RESPIRATORY: Denies cough, hemoptysis_ GASTROINTESTINAL: Reports abdominal pain. No nausea, vomiting, diarrhea or constipation._ GENITOURINARY: No dysuria, frequency, or change in urination._ MUSCULOSKELETAL: No joint or muscle swelling or pain. No neck or back pain._ SKIN: No rash_ NEUROLOGIC: No headache, vertigo, loss of consciousness, or change in strength/ sensation._ ENDOCRINE: No increased thirst. No abnormal weight change_ ALLERGIC/IMMUNOLOGIC: No hives or skin allergy._ *Physical Exam - Vital Signs Last Vital Signs Temp Pulse Resp BP Pulse Ox 98.6 F 106 H 20 118/84 100 02/10/19 11:27 02/10/19 11:27 02/10/19 11:27 02/10/19 11:27 02/10/19 11:27 - Physical Exam Comments: Exam limited 2/2 patient's difficulty following instructions GENERAL: Awake, alert, and oriented x2 to person/place, in no acute distress_ HEAD: No signs of trauma, normocephalic, atraumatic _ EYES: PERRLA, EOMI, sclera anicteric, conjunctiva clear_ ENT: Hearing grossly normal, nares patent, oropharynx clear without exudates. No uvular deviation. Moist mucosa_ NECK: Normal ROM, supple, no lymphadenopathy, JVD, or masses_ LUNGS: No distress, speaks in full sentences, clear to auscultation bilaterally _ HEART: Regular rate and rhythm, normal S1 and S2, no murmurs appreciated, peripheral pulses normal and equal bilaterally._ ABDOMEN: Soft, nontender, normoactive bowel sounds. No guarding, no rebound. No masses_ EXTREMITIES: Normal inspection, Normal range of motion, no edema. No clubbing or cyanosis_ SKIN: Warm, Dry, normal turgor, no rashes or lesions noted Neuro CN II-XII exam is limited Sensation intact to sharp/dull differentiation in all extremities. Motor: Normal tone and bulk. No abnormal movements appreciated. No pronator drift. Strength tested and 5/5 in bilateral wrist flexion/extension, elbow flexion/extension, shoulder abduction, straight leg raise, knee flexion/ extension, ankle dorsiflexion/plantarflexion. Patient ambulates with a steady gait. Romberg's negative. Coordination: Finger to nose and heel to corado testing intact bilaterally. Heart Score/ECG Review - ECG Impressions Comment:: 02/10/19 1218 EKG shows sinus tachycardia, HR 101, no ST elevation/depression, no axis deviation, QTc 451. ED Treatment Course - LABORATORY CBC & Chemistry Diagram: 02/11/19 06:25 02/11/19 06:25 Medical Decision Making - Medical Decision Making 02/10/19 1150 48F with hx of lupus and schizophrenia, presenting today because home maker noticed she was not acting like herself. Pt reports fever last week but states that is typical with her lupus. Reports feeling "queasy" and periumbilical abdominal pain for 3 days. DDx includes stroke via TIA vs ACS vs schizophrenia. -given pt's limited ability to provide hx, obtain EKG, CXR, trop to r/o ACS -CBC, CMP, UA, beta HCG, lipase -CT head w/o contrast 02/10/19 1330 Labs reviewed. Cr elevated at 1.5. Pt endorses auditory hallucination and suicidal ideation. States that her most recent suicide attempt was in 2016 when she tried to overdose on medication. States that she wants to hurt herself and took 1 shot of methotrexate from a pharmacy over the weekend with the intention of hurting herself. Patient placed on 1:1 observation. 02/10/19 14:[address] Yeung (psych). 02/10/19 15:30 Second call placed to Dr. Yeung (psych). 02/10/19 16:[address] Yeung who states that he will come in tomorrow to evaluate the patient. States that as it is a holiday, there is nothing he can do as facilities are closed. States that he understands the patient is being held on 1 :1 observation in the emergency department until a psychiatrist is able to evaluate her. 02/10/19 18:44 CT head negative. Plan to admit for TRENT. Started on 1L NS. 02/10/19 1900 Pt signed out to Dr. Lopez. *DC/Admit/Observation/Transfer Diagnosis at time of Disposition: TRENT (acute kidney injury) - Discharge Dispostion Condition at time of disposition: Stable - Referrals - Patient Instructions - Post Discharge Activity
[2019-02-10] MEDS ORDERED: SODIUM CHLORIDE 0.9% 1000 ML INFUS.BAG IV ONE (12:27)
[2019-02-10 13:07] LABS: BASO % 0.9 % (0-2.0); EOS % 0.8 % (0-4.5); HEMATOCRIT 41.8 % (32.4-45.2); HEMOGLOBIN 13.8 GM/dL (10.7-15.3); LYMPH % 16.3 % (8-40); MCH 27.6 pg (25.7-33.7); MEAN CELL VOLUME 83.6 fl (80-96); MEAN PLT VOLUME 9.9 fl (7.5-11.1); MONO % 7.9 % (3.8-10.2); NEUT % 74.1 % (42.8-82.8); PLATELET COUNT 226 K/MM3 (134-434); RDW 16.1 % (11.6-15.6); WHITE BLOOD COUNT 6.9 K/mm3 (4.0-10.0)
[2019-02-10 13:30] LABS: ALBUMIN 4.5 g/dl (3.4-5.0); BILIRUBIN,TOTAL 0.3 mg/dL (0.2-1); CALCIUM 9.7 mg/dL (8.5-10.1); CREATININE 1.5 mg/dL (0.55-1.3); POTASSIUM 3.6 mmol/L (3.5-5.1); TOT PROT 8.1 g/dl (6.4-8.2)
--- NOTE | 2019-02-10 15:10 | PDOC ---
Attending Attestation - Resident Resident Name: Saad Conteh - ED Attending Attestation I have performed the following: I have examined & evaluated the patient, The case was reviewed & discussed with the resident, I agree w/resident's findings & plan, Exceptions are as noted - HPI HPI: 02/10/19 15:11 48yo F hx SLE, schizophrenia presents to the ED with her aide, with initial complaints of feeling nauseous with abdominal pain, but later complaining of feeling suicidal. History limited as pt is a poor historian. Per NUTRITION REPRESENTATIVE, pt was not acting like herself this morning, has been more quiet than usual and is complaining of thoughts of killing herself. Pt denies any fevers, chills, headache, dizziness, stiff neck, focal weakness/numbness, cp, sob, abd pain, urinary sxs, rashes, pain elsewhere. Pt reports she has been taking her medications. Denies active plan to harm herself but does report feeling suicidal. - Physicial Exam PE: 02/10/19 17:20 agree with resident exam - Medical Decision Making 02/10/19 17:00 48yo F hx schizophrenia, presents to the ED with suicidal ideation. Pt on 1:1 watch at her report of SI Denies all medical complaints at this time, vitals and exam unremarkable Labs, UA, EKG all unremarkable. Pt is medically cleared Case discussed with Dr. Yeung, states he will see her tomorrow morning. Case signed out to evening attending while she awaits psychiatric evaluation Heart Score/ECG Review #1 02/10/19 17:23 EKG read and int by me: Sinus tachycardia, rate 101. Normal axis, and intervals. No KARTHIK
[2019-02-10] MEDS ORDERED: SODIUM CHLORIDE 0.9% 500 ML INFUS.BAG IV ONE (18:59)
--- NOTE | 2019-02-10 19:19 | PN ---
Teaching Attending Note Name of Resident: Sharri De Leon ATTENDING PHYSICIAN STATEMENT I saw and evaluated the patient. I reviewed the resident's note and discussed the case with the resident. I agree with the resident's findings and plan as documented. SUBJECTIVE: Ms. Chisholm is a 48 y/o female with PMH of SLE, Anxiety, Chronic osteomyelitis, Suicidal ideation and Schizophrenia, presenting today with "queasy feeling." Per tourist home keeper, she arrived this morning and found the patient not acting like herself. Patient reports that she doesn't feel well and has had periumbilical abdominal pain for the past 3 days, without nausea or vomiting. Reports fever of 101/102 orally last week. When asked what is concerning her, patient states "nothing" and that "she does not feel like she needs to be in the hospital." Aide states that patient was feeling dizzy and had a headache, but patient denies at present. Denies chest pain, shortness of breath, dysuria, hematochezia. No significant FH of chronic medical problem. LMP was one month ago. While in the ER she began to have auditory hallucination and suicidal ideation. States that her most recent suicide attempt was in 2016 when she tried to overdose on medication. States that she wants to hurt herself and took 1 shot of Methotrexate from a pharmacy over the weekend with the intention of hurting herself. Psychiatry was consulted. Patient placed on 1:1 observation. OBJECTIVE: Alert Vital Signs Period Temp Pulse Resp BP Sys/Pena Pulse Ox Last 24 Hr 98.6 F-98.9 F 94-106 18-20 118-140/84-86 100-100 HEENT: No Jaundice, eye redness or discharge, PERRLA, EOMI. Normocephalic, atraumatic. External ears are normal and hearing is grossly intact. No nasal discharge. Neck: Supple, nontender. No palpable adenopathy or thyromegaly. No JVD Chest: Good effort. Clear to auscultation and percussion. Heart: Regular. No S3, rub or murmur Abdomen: Not distended, soft, nontender and no HSM. No rebound or guarding. Normal bowel sounds. Ext: Peripheral pulses intact. No leg edema. Skin: Warm and dry. No petechiae, rash or ecchymosis. Neuro: Alert. Oriented x3. Anxious. CN 2-12 grossly intact. Sensation grossly intact in all four extremities and DTR are symmetric. Psych: Sad mood and Appropriate affect. Poor insight. Suicidal ideation. Home Medications Medication Instructions Recorded Duloxetine HCl [Cymbalta -] 60 mg PO DAILY 11/21/18 Hydroxychloroquine Sulfate 200 mg PO BID 11/21/18 [Plaquenil] Methotrexate Sodium/Pf 0.6 ml SQ WEEKLY 11/21/18 [Methotrexate 25 mg/ml Vial] Morphine Sulfate 15 mg PO Q6H 11/21/18 Quetiapine Fumarate [Seroquel -] 200 mg PO HS 11/21/18 Clindamycin [Cleocin -] 300 mg PO Q8H #21 capsule 11/22/18 Folic Acid 1 mg PO DAILY 11/22/18 Phenobarbital 60 mg PO TID 11/22/18 Prednisone 10 mg PO DAILY 11/22/18 Suvorexant [Belsomra] 20 mg PO HS 11/22/18 Abnormal Lab Results 02/10/19 02/10/19 02/10/19 12:50 12:50 12:50 RDW 16.1 H Creatinine 1.5 H Salicylates < 1.7 L ASSESSMENT AND PLAN: 1. Suicidal ideation and TRENT - Patient placed on 1 to 1 watch for suicidal ideation. Awaiting psychiatry evaluation. No acute pathology on head CT scan. CXR shows elevation of right hemidiaphrgm, cardiomegaly, unfolded aorta and basilar atelectasis. EKG shows sinus tachycardia with no significant ST-T wave changes. Etiology of TRENT unclear. Though she complained of abdominal pain on arrival in the ER, she is now painfree. But we will get abdominal/kidney sonogram, urinalysis, urine toxicology, hydrate gently and monitor urine output. Will consult nephrology and avoid nephrotoxic agents such as NSAIDS, aminoglycosides , contrast dyes and certain Alternative medicine products. Will continue comprehensive care of all her comorbid conditions. 2. DVT prophylaxis - Heparin 5000u sq tid. 3. Advance directives - Full code
[2019-02-10] MEDS ORDERED: SODIUM CHLORIDE 1,000 ML IV SCH (20:30)
[2019-02-10 21:23] LABS: COCAINE, UR NEGATIVE ng/ml (CUTOFF=300); METHADONE, UR NEGATIVE ng/ml (CUTOFF=300); PHENCYCLIDINE,URINE NEGATIVE ng/ml (CUTOFF=25); URINE AMPHETAMINES NEGATIVE ng/ml (CUTOFF=500)
[2019-02-10 21:27] LABS: OPIATES, URI POSITIVE ng/ml (CUTOFF=300); URINE BARBITURATES POSITIVE ng/ml (CUTOFF=200); URINE BENZODIAZEPINES POSITIVE ng/ml (CUTOFF=200)
[2019-02-10 21:30] LABS: EPI CELLS 22.5 /HPF (0-5/HPF); HYALINE CASTS 63 /lpf (0-8); PH,URINE 5.5 (5.0-8.0); URINE APPEARANCE CLEAR; URINE BACTERIA 8.6 /hpf (NEGATIVE); URINE BILIRUBIN 2+ (NEGATIVE); URINE COLOR DK YELLOW; URINE GLUCOSE (UA) NEGATIVE (NEGATIVE); URINE KETONE 1+ (NEGATIVE); URINE LEUK ESTERASE NEGATIVE (NEGATIVE); URINE NITRITE NEGATIVE (NEGATIVE); URINE PROTEIN 1+ (NEGATIVE); URINE WBC 5 /hpf (0-5)
[2019-02-10 21:31] LABS: URINE RBC 10.1 /hpf (0-4)
--- NOTE | 2019-02-10 22:06 | HP ---
CHIEF COMPLAINT: feeling queasy PCP: Dr. Chato Laurent? 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 Additionally, it was noted that the patient had a fever last week. In the ED, the patient stated that she was feeling queasy and endorsed to the ED staff that she had been having auditory hallucinations and suicidal ideation in that she had taken too much of her methotrexate over the last weekend. Dr. Yeung was consulted and stated that he will examine the patient tomorrow. On interview of the patient, she denies any acute chest pain, shortness of breath, abdominal pain, nausea, vomiting, constipation, diarrhea, fever, chills , weakness, numbness, tingling, visual changes, auditory changes, visual hallucinations, auditory hallucinations, suicidal or homicidal ideation. She denied any acute complaints and stated that she felt much better and only kept stating that she felt "somewhat queasy". She endorsed that she had not been eating well over the last month or so and she had not always been taking her medications as prescribed, sometimes taking more or less than she needs to. No recent sick contacts or travel. L TACKER: no currently sexually active, LMP 1 month ago, no hx of pregnancies or children ER course was notable for: (1) CRE 1.5 (2) given 2L NS (3) placed on 1:1 observation Recent Travel: denies PAST MEDICAL HISTORY: as above PAST SURGICAL HISTORY: denies Social History: Smoking: denies Alcohol: denies Drugs: denies Family History: denies any significant family history Allergies methotrexate Allergy (Unknown, Verified 02/10/19 11:29) Vomiting metoclopramide HCl [From Reglan] Allergy (Unknown, Verified 02/10/19 11:29) dystonia HOME MEDICATIONS: Home Medications Medication Instructions Recorded Duloxetine HCl [Cymbalta -] 60 mg PO DAILY 11/21/18 Hydroxychloroquine Sulfate 200 mg PO BID 11/21/18 [Plaquenil] Methotrexate Sodium/Pf 0.6 ml SQ WEEKLY 11/21/18 [Methotrexate 25 mg/ml Vial] Morphine Sulfate 15 mg PO Q6H 11/21/18 Quetiapine Fumarate [Seroquel -] 200 mg PO HS 11/21/18 Clindamycin [Cleocin -] 300 mg PO Q8H #21 capsule 11/22/18 Folic Acid 1 mg PO DAILY 11/22/18 Phenobarbital 60 mg PO TID 11/22/18 Prednisone 10 mg PO DAILY 11/22/18 Suvorexant [Belsomra] 20 mg PO HS 11/22/18 Diazepam [Valium] 5 mg PO DAILY 02/10/19 Mirtazapine 45 mg PO HS 02/10/19 Prednisone 5 mg PO DAILY 02/10/19 Risperidone 6 mg PO HS 02/10/19 Zolpidem Tartrate 10 mg PO HS 02/10/19 predniSONE [Deltasone -] 1 mg PO DAILY 02/10/19 REVIEW OF SYSTEMS CONSTITUTIONAL: loss of appetite Absent: fever, chills, diaphoresis, generalized weakness, malaise, HEENT: Absent: rhinorrhea, nasal congestion, throat pain, throat swelling, difficulty swallowing, eye pain, visual changes CARDIOVASCULAR: Absent: chest pain, syncope, palpitations, irregular heart rate, lightheadedness , peripheral edema RESPIRATORY: Absent: cough, shortness of breath, dyspnea with exertion, orthopnea, wheezing, GASTROINTESTINAL: Absent: abdominal pain, abdominal distension, nausea, vomiting, diarrhea, constipation, melena, GENITOURINARY: Absent: dysuria, frequency, urgency, hesitancy, hematuria, flank pain, MUSCULOSKELETAL: Absent: myalgia, arthralgia, joint swelling, back pain, neck pain SKIN: Absent: rash, itching, pallor HEMATOLOGIC/IMMUNOLOGIC: Absent: easy bruising, frequent infections ENDOCRINE: Absent: unexplained weight gain, unexplained weight loss, heat intolerance, cold intolerance NEUROLOGIC: Absent: headache, focal weakness or paresthesias, dizziness, unsteady gait, seizure, mental status changes, bladder or bowel incontinence PSYCHIATRIC: Absent: anxiety, depression, suicidal or homicidal ideation, hallucinations. PHYSICAL EXAMINATION Vital Signs - 24 hr 02/10/19 02/10/19 02/10/19 11:27 13:10 16:06 Temperature 98.6 F 98.9 F 98.6 F Pulse Rate 106 H Pulse Rate [ 94 H Right Radial] Respiratory 20 18 Rate Blood Pressure 118/84 Blood Pressure 140/86 [Left Arm] O2 Sat by Pulse 100 100 Oximetry (%) GENERAL: Awake, alert, and fully oriented, in no acute distress. Fidgety during interview HEAD: Normal with no signs of trauma. EYES: Pupils equal, round and reactive to light, extraocular movements intact, sclera anicteric, conjunctiva clear. EARS, NOSE, THROAT: Oropharynx clear without exudates. Dry mucous membranes. NECK: Normal range of motion, supple without lymphadenopathy, JVD, LUNGS: Breath sounds equal, clear to auscultation bilaterally. No wheezes, and no crackles. No accessory muscle use. HEART: Regular rate and rhythm, normal S1 and S2 without murmur, rub or gallop. ABDOMEN: Soft, nontender, not distended, normoactive bowel sounds, no guarding, no rebound, no masses. MUSCULOSKELETAL: Normal range of motion at all joints. No bony deformities or tenderness. UPPER EXTREMITIES: 2+ pulses, warm, well-perfused. No cyanosis. No clubbing. No peripheral edema. LOWER EXTREMITIES: 2+ pulses, warm, well-perfused. No calf tenderness. No peripheral edema. NEUROLOGICAL: Cranial nerves II-XII intact. Muscle strength intact 5/5, bilaterally upper and lower extremities. PSYCHIATRIC: Cooperative. Good eye contact. Anxious mood, slow single word responses. SKIN: Dry, no rashes or lesions noted, normal capillary refill. Cool extremities to touch. Laboratory Results - last 24 hr 02/10/19 02/10/19 02/10/19 12:50 12:50 12:50 WBC 6.9 RBC 5.00 Hgb 13.8 Hct 41.8 MCV 83.6 MCH 27.6 MCHC 33.0 RDW 16.1 H Plt Count 226 D MPV 9.9 D Absolute Neuts (auto) 5.1 Neutrophils % 74.1 D Lymphocytes % 16.3 D Monocytes % 7.9 Eosinophils % 0.8 Basophils % 0.9 Nucleated RBC % 0 Sodium 141 Potassium 3.6 Chloride 105 Carbon Dioxide 25 Anion Gap 10 BUN 14.0 Creatinine 1.5 H Est GFR (CKD-EPI)AfAm 47.59 Est GFR (CKD-EPI)NonAf 41.06 Random Glucose 90 Calcium 9.7 Total Bilirubin 0.3 AST 24 ALT 13 Alkaline Phosphatase 71 Creatine Kinase 79 Troponin I < 0.02 Total Protein 8.1 Albumin 4.5 Lipase TSH 0.90 Serum , Qual Urine Color Urine Appearance Urine pH Ur Specific [place] Urine Protein Urine Glucose (UA) Urine Ketones Urine Blood Urine Nitrite Urine Bilirubin Urine Urobilinogen Ur Leukocyte Esterase Urine WBC (Auto) Urine RBC (Auto) Urine Casts (Auto) U Epithel Cells (Auto) Urine Bacteria (Auto) Ur Random Sodium Urine HCG, Qual Salicylates Opiates Screen Methadone Screen Acetaminophen Barbiturate Screen Phencyclidine Screen Ur Amphetamines Screen MDMA (Ecstasy) Screen Benzodiazepines Screen Cocaine Screen U Marijuana (THC) Screen 02/10/19 02/10/19 02/10/19 12:50 12:50 12:50 WBC RBC Hgb Hct MCV MCH MCHC RDW Plt Count MPV Absolute Neuts (auto) Neutrophils % Lymphocytes % Monocytes % Eosinophils % Basophils % Nucleated RBC % Sodium Potassium Chloride Carbon Dioxide Anion Gap BUN Creatinine Est GFR (CKD-EPI)AfAm Est GFR (CKD-EPI)NonAf Random Glucose Calcium Total Bilirubin AST ALT Alkaline Phosphatase Creatine Kinase Troponin I Total Protein Albumin Lipase 295 TSH Serum , Qual Urine Color Urine Appearance Urine pH Ur Specific [place] Urine Protein Urine Glucose (UA) Urine Ketones Urine Blood Urine Nitrite Urine Bilirubin Urine Urobilinogen Ur Leukocyte Esterase Urine WBC (Auto) Urine RBC (Auto) Urine Casts (Auto) U Epithel Cells (Auto) Urine Bacteria (Auto) Ur Random Sodium Urine HCG, Qual Salicylates < 1.7 L Opiates Screen Methadone Screen Acetaminophen <2.0 Barbiturate Screen Phencyclidine Screen Ur Amphetamines Screen MDMA (Ecstasy) Screen Benzodiazepines Screen Cocaine Screen U Marijuana (THC) Screen 02/10/19 02/10/19 02/10/19 12:50 20:48 20:48 WBC RBC Hgb Hct MCV MCH MCHC RDW Plt Count MPV Absolute Neuts (auto) Neutrophils % Lymphocytes % Monocytes % Eosinophils % Basophils % Nucleated RBC % Sodium Potassium Chloride Carbon Dioxide Anion Gap BUN Creatinine Est GFR (CKD-EPI)AfAm Est GFR (CKD-EPI)NonAf Random Glucose Calcium Total Bilirubin AST ALT Alkaline Phosphatase Creatine Kinase Troponin I Total Protein Albumin Lipase TSH Serum , Qual Negative Urine Color Urine Appearance Urine pH Ur Specific [place] Urine Protein Urine Glucose (UA) Urine Ketones Urine Blood Urine Nitrite Urine Bilirubin Urine Urobilinogen Ur Leukocyte Esterase Urine WBC (Auto) Urine RBC (Auto) Urine Casts (Auto) U Epithel Cells (Auto) Urine Bacteria (Auto) Ur Random Sodium Urine HCG, Qual Negative Salicylates Opiates Screen Positive A* Methadone Screen Negative Acetaminophen Barbiturate Screen Positive A* Phencyclidine Screen Negative Ur Amphetamines Screen Negative MDMA (Ecstasy) Screen Negative Benzodiazepines Screen Positive A* Cocaine Screen Negative U Marijuana (THC) Screen Negative 02/10/19 02/10/19 20:48 20:48 WBC RBC Hgb Hct MCV MCH MCHC RDW Plt Count MPV Absolute Neuts (auto) Neutrophils % Lymphocytes % Monocytes % Eosinophils % Basophils % Nucleated RBC % Sodium Potassium Chloride Carbon Dioxide Anion Gap BUN Creatinine Est GFR (CKD-EPI)AfAm Est GFR (CKD-EPI)NonAf Random Glucose Calcium Total Bilirubin AST ALT Alkaline Phosphatase Creatine Kinase Troponin I Total Protein Albumin Lipase TSH Serum , Qual Urine Color Dk yellow Urine Appearance Clear Urine pH 5.5 D Ur Specific [place] 1.031 Urine Protein 1+ H Urine Glucose (UA) Negative Urine Ketones 1+ H Urine Blood Negative Urine Nitrite Negative Urine Bilirubin 2+ H Urine Urobilinogen 1.0 Ur Leukocyte Esterase Negative Urine WBC (Auto) 5 Urine RBC (Auto) 10.1 Urine Casts (Auto) 63 U Epithel Cells (Auto) 22.5 Urine Bacteria (Auto) 8.6 Ur Random Sodium 62 Urine HCG, Qual Salicylates Opiates Screen Methadone Screen Acetaminophen Barbiturate Screen Phencyclidine Screen Ur Amphetamines Screen MDMA (Ecstasy) Screen Benzodiazepines Screen Cocaine Screen U Marijuana (THC) Screen EKG--> Sinus tachy, no ST segment changes, QTc 451 ASSESSMENT/PLAN: Patient is a 48 year old female with a past medical hsitory of lupus, schizophrenia, depression admitted for RTENT and possible suicidal ideation. TRENT Suicidal Ideation Schizophrenia Depression Lupus TRENT - likely due to decreased oral intake and hypovolemia, additional component of lupus, can consider workup of early lupus nephritis - CRE 1.5, baseline 0.8-0.9 - encourage PO intake - given NS 2L in ED - continue gentle hydration with NS at 50cc/hr - kidney/abdomen U/S - Utox positive for benzo, barbituates, opiates, confirm that patient on all medication classes through [facility] pharmacy - monitor urine output - avoid NSAIDs, contrast Suicidal Ideation - likely in setting of inconsistent medication administration/non-compliance - no acute pathology of CT scan - Dr. Yeung consulted - continue 1:1 monitoring - restart home depression/schizophrenia medications Schizophrenia - continue home risperidone - if not available through formulary, should be adjusted through psych Depression - continue home mirtazipine and cymbalta Lupus - continue home prednisone - continue home Plaquenil - confirm all meds with secondary pharmacy [facility] Garcia in the morning FEN - NS at 50cc/hr - continue to monitor electrolytes and replete as necessary - regular diet Prophylaxis - heparin 5000 units subq tid Code - full code CHINMAY LEWIS DO - PGY-1 Visit type - Emergency Visit Emergency Visit: Yes ED Registration Date: 02/10/19 Care time: The patient presented to the Emergency Department on the above date and was hospitalized for further evaluation of their emergent condition. - New Patient This patient is new to me today: Yes Date on this admission: 02/11/19 - Critical Care Critical Care patient: No
[2019-02-10] MEDS ORDERED: HEPARIN NA (PORCINE) 5,000 UNITS/ML 1ML VIAL ONE (22:09)
[2019-02-10] MEDS: HEPARIN NA (PORCINE) 5,000 UNITS/ML 1ML VIAL SQ SCH (22:12)
[2019-02-10] MEDS ORDERED: ZOLPIDEM TARTRATE 5 MG TABLET PO PRN (22:46)
[2019-02-11 01:53] VITALS: BMI 25.0
[2019-02-11] MEDS: HEPARIN NA (PORCINE) 5,000 UNITS/ML 1ML VIAL SQ SCH ×2 (05:35→13:53)
[2019-02-11 07:50] LABS: BASO % 0.6 % (0-2.0); EOS % 1.8 % (0-4.5); HEMATOCRIT 37.7 % (32.4-45.2); HEMOGLOBIN 12.4 GM/dL (10.7-15.3); LYMPH % 27.4 % (8-40); MCH 27.3 pg (25.7-33.7); MEAN CELL VOLUME 82.7 fl (80-96); MEAN PLT VOLUME 9.3 fl (7.5-11.1); MONO % 9.3 % (3.8-10.2); NEUT % 60.9 % (42.8-82.8); RBC 4.56 M/mm3 (3.60-5.2); WHITE BLOOD COUNT 5.7 K/mm3 (4.0-10.0)
[2019-02-11 08:03] LABS: ALBUMIN 3.9 g/dl (3.4-5.0); BILIRUBIN,TOTAL 0.4 mg/dL (0.2-1); BLOOD UREA NITROGEN 11.6 mg/dL (7-18); CALCIUM 8.8 mg/dL (8.5-10.1); CREATININE 0.8 mg/dL (0.55-1.3); MAGNESIUM 2.1 mg/dL (1.8-2.4); POTASSIUM 3.4 mmol/L (3.5-5.1)
[2019-02-11 08:29] LABS: PLATELET COUNT 175 K/MM3 (134-434)
[2019-02-11] MEDS ORDERED: HYDROXYCHLOROQUINE SO4 200 MG TABLET (FP) PO SCH (10:00)
[2019-02-11] MEDS ORDERED: predniSONE 5 MG TABLET (UD) PO SCH (10:00)
[2019-02-11] MEDS ORDERED: DULoxetine HCL 60 MG CAPSULE.DR PO SCH (10:00)
[2019-02-11] MEDS ORDERED: DULoxetine HCL 30 MG CAPSULE.DR PO ONE ×2 (11:08→11:20)
--- NOTE | 2019-02-11 11:08 | CON.PSY ---
Psychiatry Consult Chief Complaint: 48 [place] old female with a long history of SChizoaffective Disorder came to Er reporting Queesy feeling in her stoamach. She reported auditory hallucinations and stff fe3lt she was feeling suicidal. Patient denies feeling suicidal or saying that. Shw goes to [facility] in [place] and is compliant with MEDs. - Previous Psychiatric Treatment Outpatient: Less than 6 mos ago Inpatient: One prior admission - Previous Substance Abuse Treatment Outpatient: None Inpatient: None - Reason for Previous Treatment Reason for Previous Treatment: Psychotic Episode - Current Medications Current Medications: Active Medications Duloxetine HCl (Cymbalta -) 60 mg PO DAILY [facility] Heparin Sodium (Porcine) (Heparin -) 5,000 unit SQ TID MOI Last Admin: 02/11/19 05:35 Dose: 5,000 unit Hydroxychloroquine Sulfate (Plaquenil -) 200 mg PO BID MOI Sodium Chloride (Normal Saline -) 1,000 mls @ 50 mls/hr IV ASDIR MOI Stop: 02/11/19 20:33 Last Admin: 02/10/19 20:39 Dose: 50 mls/hr Mirtazapine 30 mg/ Mirtazapine (15 mg) 45 mg PO HS MOI Prednisone (Deltasone -) 5 mg PO DAILY MOI Risperidone (Risperdal -) 6 mg PO HS MOI Zolpidem Tartrate (Ambien -) 10 mg PO HS PRN - Allergies Allergies: Allergies Allergy/AdvReac Type Severity Reaction Status Date / Time methotrexate Allergy Unknown Vomiting Verified 02/10/19 11:29 metoclopramide HCl Allergy Unknown dystonia Verified 02/10/19 11:29 [From [facility]] - Current Living Status Usual Living Arrangement: Alone - Current Mental Status Evaluation Appearance: Well Groomed Attitude: Cooperative - Affect Affect: Constrictive Appropriateness: Appropriate to Content - Mood Mood: Euthymic - Speech/Language Expressive: Coherent Receptive: Age Appropriate Comprehension of Spoken Words - Psychomotor Activity Psychomotor Activity: Slowed - Thought Process Thought Process: Intact - Thought Content Hallucinations: Absent Delusions: Absent - Self Perception Self Perception: No Impairment - Cognition Attention: Alert Orientation: Time Memory, Immediate Recall: Intact Memory, Short Term: 3/3 Memory, Remote with Promptin/3 - Concentration Serial Sevens Intact: No Simple Calculations Intact: Yes - Abstraction Proverb Interpretation: Intact Judgement: Intact - Insight Insight: Intact - Impulse Control Impulse Control: Good Control - Suicidal Ideation Suicidal Ideation: No - Homicidal Ideation Homicidal Ideation: No Assessment/Plan 1) patient is not suicidal at this time. 2) Continue with current psych meds. 3) discharge when medically stable. 4) Follow up at [facility] in [place].
[2019-02-11] MEDS ORDERED: POTASSIUM CHLORIDE TABS 20 MEQ TABLET.ER (FP) PO ONE (12:17)
[2019-02-11] MEDS ORDERED: FERROUS SO4 325 MG TABLET (FP) PO SCH (12:30)
--- NOTE | 2019-02-11 12:46 | EKG ---
Test Reason : Blood Pressure : / mmHG Vent. Rate : 101 BPM Atrial Rate : 101 BPM P-R Int : 142 ms QRS Dur : 098 ms QT Int : 348 ms P-R-T Axes : -03 030 -21 degrees QTc Int : 451 ms SINUS TACHYCARDIA CANNOT RULE OUT INFERIOR INFARCT , AGE UNDETERMINED ABNORMAL ECG Confirmed by Saad Yung MD ([id number]) on 02/11/2019 12:46:33 PM Referred By: Confirmed By:Saad Yung MD
--- NOTE | 2019-02-11 14:16 | PN ---
Teaching Attending Note Name of Resident: Nav Edwards ATTENDING PHYSICIAN STATEMENT I saw and evaluated the patient. I reviewed the resident's note and discussed the case with the resident. I agree with the resident's findings and plan as documented. SUBJECTIVE:asymptomatic. denies Cp, SOB, fever, chills, N/V/C/D, auditory/ visual hallucinations. thoughts of feelings towards wanting to hurt herself or others OBJECTIVE: Last Vital Signs Temp Pulse Resp BP Pulse Ox 99 F 90 20 95/62 100 02/11/19 08:55 02/11/19 08:55 02/11/19 13:27 02/11/19 08:55 02/11/19 13:27 General NAD, flat affect, A&O x3 CV S1 s2 RRR no murmur/rub/gallop Lungs CTA B/L no wheezing/rales/rhonch Abdomen soft NT/ND Extremities no pedal edema ASSESSMENT AND PLAN: 48yo F wtih PMH SLE, anxiety, schizophrenia and suicide attempts in the past presented to the ER with "queasy feelings" and in the ER reported thought of suicide and auditory hallucinations 1. Suicidal idealizations- made reports in the ER. currently does not have any thoughts of hurting herself and no plan of wanting to hurt herself. states she has made an attempt in the past but no desire now and is being monitored closely by her psychiatrist whom she just saw last month. currently on 1;1 observation. will watch for now. psych consulted 2. TRENT- likely dehydration. now resolved 3. hypokalemia- resolved 4. iron def anemia- start iron supplements. counselled on side effects 5. SLE 6. anxiety 7. schizophrenia 8. if cleared by psych can d/c home
[2019-02-11 14:35] VITALS: BP 119/72; PULSE 97; TEMP 98.7
--- NOTE | 2019-02-11 15:47 | DS ---
Physical Exam: SUBJECTIVE: Patient seen and examined OBJECTIVE: Vital Signs Period Temp Pulse Resp BP Sys/Pena Pulse Ox Last 24 Hr 98.4 F-99.3 F 89-97 16-20 95-150/62-92 98-100 PHYSICAL EXAM GENERAL: The patient is awake, alert, and fully oriented, in no acute distress. HEAD: Normal with no signs of trauma. EYES: PERRL, extraocular movements intact, sclera anicteric, conjunctiva clear. ENT: Ears normal, nares patent, oropharynx clear without exudates, moist mucous membranes. NECK: Trachea midline, full range of motion, supple. LUNGS: Breath sounds equal, clear to auscultation bilaterally, no wheezes, no crackles, no accessory muscle use. HEART: Regular rate and rhythm, S1, S2 without murmur, rub or gallop. ABDOMEN: Soft, nontender, nondistended, normoactive bowel sounds, no guarding, no rebound, no hepatosplenomegaly, no masses. EXTREMITIES: 2+ pulses, warm, well-perfused, no edema. NEUROLOGICAL: Cranial nerves II through XII grossly intact. Normal speech, gait not observed. PSYCH: Normal mood, normal affect. SKIN: Warm, dry, normal turgor, no rashes or lesions noted. LABS Laboratory Results - last 24 hr 02/10/19 02/10/19 02/10/19 12:50 20:46 20:48 WBC RBC Hgb Hct MCV MCH MCHC RDW Plt Count MPV Absolute Neuts (auto) Neutrophils % Lymphocytes % Monocytes % Eosinophils % Basophils % Nucleated RBC % Sodium Potassium Chloride Carbon Dioxide Anion Gap BUN Creatinine Est GFR (CKD-EPI)AfAm Est GFR (CKD-EPI)NonAf Random Glucose Calcium Magnesium Total Bilirubin AST ALT Alkaline Phosphatase Total Protein Albumin TSH 0.90 Urine Color Urine Appearance Urine pH Ur Specific [place] Urine Protein Urine Glucose (UA) Urine Ketones Urine Blood Urine Nitrite Urine Bilirubin Urine Urobilinogen Ur Leukocyte Esterase Urine WBC (Auto) Urine RBC (Auto) Urine Casts (Auto) U Epithel Cells (Auto) Urine Bacteria (Auto) Ur Random Creatinine 573.0 H Ur Random Sodium Urine HCG, Qual Negative Opiates Screen Methadone Screen Barbiturate Screen Phencyclidine Screen Ur Amphetamines Screen MDMA (Ecstasy) Screen Benzodiazepines Screen Cocaine Screen U Marijuana (THC) Screen 02/10/19 02/10/1919 20:48 20:48 20:48 WBC RBC Hgb Hct MCV MCH MCHC RDW Plt Count MPV Absolute Neuts (auto) Neutrophils % Lymphocytes % Monocytes % Eosinophils % Basophils % Nucleated RBC % Sodium Potassium Chloride Carbon Dioxide Anion Gap BUN Creatinine Est GFR (CKD-EPI)AfAm Est GFR (CKD-EPI)NonAf Random Glucose Calcium Magnesium Total Bilirubin AST ALT Alkaline Phosphatase Total Protein Albumin TSH Urine Color Dk yellow Urine Appearance Clear Urine pH 5.5 D Ur Specific [place] 1.031 Urine Protein 1+ H Urine Glucose (UA) Negative Urine Ketones 1+ H Urine Blood Negative Urine Nitrite Negative Urine Bilirubin 2+ H Urine Urobilinogen 1.0 Ur Leukocyte Esterase Negative Urine WBC (Auto) 5 Urine RBC (Auto) 10.1 Urine Casts (Auto) 63 U Epithel Cells (Auto) 22.5 Urine Bacteria (Auto) 8.6 Ur Random Creatinine Ur Random Sodium 62 Urine HCG, Qual Opiates Screen Positive A* Methadone Screen Negative Barbiturate Screen Positive A* Phencyclidine Screen Negative Ur Amphetamines Screen Negative MDMA (Ecstasy) Screen Negative Benzodiazepines Screen Positive A* Cocaine Screen Negative U Marijuana (THC) Screen Negative 02/11/19 02/11/19 06:25 06:25 WBC 5.7 RBC 4.56 Hgb 12.4 Hct 37.7 MCV 82.7 MCH 27.3 MCHC 33.0 RDW 16.0 H Plt Count 175 D MPV 9.3 Absolute Neuts (auto) 3.5 Neutrophils % 60.9 Lymphocytes % 27.4 D Monocytes % 9.3 Eosinophils % 1.8 D Basophils % 0.6 Nucleated RBC % 0 Sodium 141 Potassium 3.4 L Chloride 109 H Carbon Dioxide 23 Anion Gap 9 BUN 11.6 Creatinine 0.8 Est GFR (CKD-EPI)AfAm 101.75 Est GFR (CKD-EPI)NonAf 87.79 Random Glucose 83 Calcium 8.8 Magnesium 2.1 Total Bilirubin 0.4 AST 21 ALT 13 Alkaline Phosphatase 62 Total Protein 7.0 Albumin 3.9 TSH Urine Color Urine Appearance Urine pH Ur Specific [place] Urine Protein Urine Glucose (UA) Urine Ketones Urine Blood Urine Nitrite Urine Bilirubin Urine Urobilinogen Ur Leukocyte Esterase Urine WBC (Auto) Urine RBC (Auto) Urine Casts (Auto) U Epithel Cells (Auto) Urine Bacteria (Auto) Ur Random Creatinine Ur Random Sodium Urine HCG, Qual Opiates Screen Methadone Screen Barbiturate Screen Phencyclidine Screen Ur Amphetamines Screen MDMA (Ecstasy) Screen Benzodiazepines Screen Cocaine Screen U Marijuana (THC) Screen HOSPITAL COURSE: Date of Admission:02/10/19 Date of Discharge: 02/11/19 Discharge Summary Reason For Visit: ACUTE KIDNEY INJURY Current Active Problems TRENT (acute kidney injury) (Acute) Condition: Stable - Instructions Diet, Activity, Other Instructions: YOUR VISIT You came to the hospital because you were experiencing an upset stomach. You were admitted to the hospital to care for this. You were given fluids and encouraged to eat after not having food for some time. You were also seen by a psychiatrist. After a meal and some fluids, you improved. You may now return home. MEDICATIONS Please continue to take your home medications as prescribed. You have 1 *NEW* medication: Iron supplement 325 mg by mouth every day ADDITIONAL CARE Please make an appointment to see your primary care provider, Dr. Chato Laurent, 1 week from today. If you would like to come to the [facility] residents' clinic at [address] [place] [address], please call . If you would like to continue seeing Dr. Nav Edwards, please ask for a Sunday morning appointment. Please follow up at the [facility] in [place] 1 week from today. [address] [id number]. A referral for the psychiatrist you saw in the hospital (Dr. Yeung) has been provided. ADDITIONAL INFORMATION Please call 911 or come directly to the emergency department if you experience unusual headache, vision change, shortness of breath, chest pain, numbness, tingling, loss of alertness/awareness, loss of function, unusual bleeding or any alarming symptoms. Referrals: nAant Day MD [Staff Physician] - 1 Week Arthur Yeung MD [Staff Physician] - Disposition: HOME - Home Medications Comprehensive Discharge Medication List: Ambulatory Orders Duloxetine HCl [Cymbalta -] 60 mg PO DAILY 11/21/18 Hydroxychloroquine Sulfate [Plaquenil] 200 mg PO BID 11/21/18 Methotrexate Sodium/Pf [Methotrexate 25 mg/ml Vial] 0.6 ml SQ WEEKLY 11/21/18 Morphine Sulfate 15 mg PO Q6H 11/21/18 Folic Acid 1 mg PO DAILY 11/22/18 Diazepam [Valium] 5 mg PO DAILY 02/10/19 Mirtazapine 45 mg PO HS 02/10/19 Risperidone 6 mg PO HS 02/10/19 Zolpidem Tartrate 10 mg PO HS 02/10/19 Ferrous Sulfate [Feosol] 325 mg PO DAILY #30 ud 02/11/19 Mirtazapine [Remeron -] 45 mg PO HS tablet 02/11/19 ATTENDING PHYSICIAN STATEMENT I saw and evaluated the patient. I reviewed the resident's note and discussed the case with the resident. I agree with the resident's findings and plan as documented. SUBJECTIVE: OBJECTIVE: ASSESSMENT AND PLAN:
[2019-02-11] MEDS ORDERED: RISPERIDONE 6 MG PO SCH (22:00)
[2019-02-11] MEDS ORDERED: risperiDONE 1 MG TABLET (FP) PO SCH (22:00)
[2019-02-11] MEDS ORDERED: MIRTAZAPINE 30 MG TABLET (FP) PO SCH (22:00)
[2019-02-11] MEDS ORDERED: MIRTAZAPINE 30 MG, MIRTAZAPINE 15 MG PO SCH (22:00)
[2019-02-11] MEDS ORDERED: MIRTAZAPINE 45 MG PO SCH (22:00)
[2019-02-11] MEDS ORDERED: PATIENT'S OWN MEDICATION (NON-FORMULARY) (Zolpidem Tartrate [Zolpidem Tartrate] 10 MG) PO SCH (22:00)
== END 2019-02-11 17:43 | disposition home or self-care (01) | DRG 683 ==
LOC: JER 11:16 → JERBED 22:49 → J6S 23:32
PROVIDERS: ADMIT Internal Medicine; ATTEND Internal Medicine
DX: N17.9 Acute kidney failure, unspecified (principal); R45.851 Suicidal ideations; F20.9 Schizophrenia, unspecified; M32.9 Systemic lupus erythematosus, unspecified; E86.0 Dehydration; F41.9 Anxiety disorder, unspecified; F32.9 Major depressive disorder, single episode, unspecified; E86.1 Hypovolemia; E87.6 Hypokalemia; D50.9 Iron deficiency anemia, unspecified
CPT/HCPCS: 36415; 70450-TC; 71046-TC-FY; 76700-TC; 80053; 80307; 81003; 82550; 82565; 83690; 83735; 84300; 84443; 84484; 84703; 85025; 87081; 87086; 93005; 93010; 99285-25; J1644; J7030